=== PATIENT | male | born 1950 | race Two or more races ===

== ENCOUNTER 2016-12-13 20:53 | Inpatient (IN) | payer MEDICAID, OTHER ==
[~2016-12-13] VITALS: Ht 170.2 cm; Wt 77.1 kg
[2016-12-13 21:20] LABS: BASOPHILS % (AUTO) 0.6 % (0.0-2.0); EOSINOPHILS % (AUTO) 2.6 % (0.0-3.0); LYMPHOCYTES % (AUTO) 13.3 % (20.0-45.0); MEAN CORPUSCULAR HEMOGLOBIN 31.3 PG (27.0-31.0); MEAN CORPUSCULAR HGB CONC 32.9 G/DL (32.0-36.0); MEAN CORPUSCULAR VOLUME 95 FL (80-99); MEAN PLATELET VOLUME 6.5 FL (6.5-10.1); MONOCYTES % (AUTO) 4.4 % (1.0-10.0); NEUTROPHILS % (AUTO) 79.1 % (45.0-75.0); PLATELET COUNT 216 K/UL (150-450); RED BLOOD COUNT 4.08 M/UL (4.70-6.10); RED CELL DISTRIBUTION WIDTH 13.9 % (11.6-14.8); WHITE BLOOD COUNT 11.5 K/UL (4.8-10.8)
[2016-12-13 21:31] LABS: TROPONIN I < 0.30 ng/mL (<=0.30)
[2016-12-13 21:32] LABS: ALANINE AMINOTRANSFERASE 17 U/L (3-41); ALBUMIN/GLOBULIN RATIO 0.8 (1.0-2.7); ANION GAP 13 (5-15); ASPARTATE AMINO TRANSFERASE 26 U/L (5-40); CALCIUM 9.2 mg/dL (8.6-10.2); CARBON DIOXIDE 31 mEQ/L (20-30); CHLORIDE 90 mEQ/L (98-107); CREATININE 0.6 mg/dL (0.7-1.2); GLOMERULAR FILTRATION RATE > 60 mL/min (>60); HEMOLYSIS 13; POTASSIUM 4.3 mEQ/L (3.4-4.9); SODIUM 134 mEQ/L (135-145); TOTAL PROTEIN 8.6 g/dL (6.6-8.7)
[2016-12-13] MEDS ORDERED: KEPPRA1000 MG ORAL (22:23)
[2016-12-13] MEDS ORDERED: HUMULIN R100 UNIT/1 SUBQ (22:23)
[2016-12-13] MEDS ORDERED: CAPOTEN12.5 MG GT (22:23)
[2016-12-13] MEDS ORDERED: FAMOTIDINE20 MG ORAL (22:23)
[2016-12-13] MEDS ORDERED: LEVOTHYROXINE150 MCG ORAL (22:23)
[2016-12-13] MEDS ORDERED: DILANTIN100 MG ORAL (22:23)
--- NOTE | 2016-12-13 22:25 | Emergency Room Report ---
History of Present Illness General Chief Complaint: Abnormal Labs Source: Medical Record, EMS Present Illness HPI The patient was sent in because of an elevated Dilantin level. The patient is in a vegetative state and has history of seizures. He is being given medications by gastrostomy tube. The Dilantin level was 51 at the [facility] facility. No apparent seizures, fevers. He does have involuntary tongue thrusting according to Dr. Bran. Patient in vegetative state and no other history available. Allergies: Coded Allergies: No Known Allergies (Unverified , 12/13/16) Patient History Past Medical History: see triage record Past Surgical History: other - trach and G tube Social History Narrative snf Reviewed Nursing Documentation: PMH: Agreed, PSxH: Agreed Nursing Documentation-PMH Hx Cardiac Problems: Yes - HYPERLIPIDEMIA,ANEMIA Hx COPD: Yes - RESP FAILURE,TRACHE,VENT DEPENDENT Hx Diabetes: Yes Hx Gastrointestinal Problems: Yes - CDK Physical Exam Vital Signs Date Time Temp Pulse Resp B/P Pulse Ox O2 Delivery O2 Flow Rate FiO2 12/13/16 20:37 88 16 113/65 98 Mechanical Ventilator 40 Sp02 EP Interpretation: reviewed, normal General Appearance: no apparent distress, other - vegetative state, Chronically Ill Head: normocephalic Eyes: bilateral eye PERRL, bilateral eye normal inspection, bilateral eye other - some exopththalmos ENT: moist mucus membranes, other - tongue with ischemic tip Neck: supple Respiratory: lungs clear, normal breath sounds Cardiovascular #1: regular rate, rhythm Cardiovascular #2: 2+ radial (R) Gastrointestinal: normal inspection, normal bowel sounds, non tender, no mass, distended, other - G tube Musculoskeletal: back normal, other - atrophy, contractures Neurologic: other - unresponsive and flaccid Psychiatric: other - vegetative state Skin: warm/dry, other - sacral decub, punctate follicular inflammation, blister abd Medical Decision Making Diagnostic Impression: Primary Impression: Dilantin toxicity Qualified Codes: T42.0X4A - Poisoning by hydantoin derivatives, undetermined, initial encounter Additional Impressions: Ventilator dependent Low grade fever ER Course Patient presents with possible elevated Dilantin level. Physical of this possibly being arrhythmias and altered mental status with possible hypotension. Evaluation with EKG, chest x-ray and laboratories undertaken. The patient will receive IV hydration. EKG with right axis deviation however no QT prolongation or arrhythmia. Dilantin level is 55.3. Low grade fever, etiology unclear. Because his Dilantin level is increasing the patient admitted to the hospital for further observation. Admit [facility], Dr. Nicolas. Labs Test 12/14/16 04:00 12/15/16 05:24 12/16/16 05:28 White Blood Count 9.5 K/UL (4.8-10.8) 6.2 K/UL (4.8-10.8) Red Blood Count 3.73 M/UL (4.70-6.10) 3.68 M/UL (4.70-6.10) Hemoglobin 11.9 G/DL (14.2-18.0) 11.6 G/DL (14.2-18.0) Hematocrit 35.7 % (42.0-52.0) 35.3 % (42.0-52.0) Mean Corpuscular Volume 96 FL (80-99) 96 FL (80-99) Mean Corpuscular Hemoglobin 31.9 PG (27.0-31.0) 31.5 PG (27.0-31.0) Mean Corpuscular Hemoglobin Concent 33.3 G/DL (32.0-36.0) 32.9 G/DL (32.0-36.0) Red Cell Distribution Width 13.6 % (11.6-14.8) 14.4 % (11.6-14.8) Platelet Count 169 K/UL (150-450) 226 K/UL (150-450) Mean Platelet Volume 7.0 FL (6.5-10.1) 7.2 FL (6.5-10.1) Neutrophils (%) (Auto) 71.2 % (45.0-75.0) 55.8 % (45.0-75.0) Lymphocytes (%) (Auto) 18.2 % (20.0-45.0) 29.0 % (20.0-45.0) Monocytes (%) (Auto) 6.8 % (1.0-10.0) 9.9 % (1.0-10.0) Eosinophils (%) (Auto) 3.0 % (0.0-3.0) 4.6 % (0.0-3.0) Basophils (%) (Auto) 0.8 % (0.0-2.0) 0.8 % (0.0-2.0) Sodium Level 135 mEQ/L (135-145) 141 mEQ/L (135-145) Potassium Level 4.4 mEQ/L (3.4-4.9) 3.5 mEQ/L (3.4-4.9) Chloride Level 94 mEQ/L (98-107) 98 mEQ/L (98-107) Carbon Dioxide Level 26 mEQ/L (20-30) 27 mEQ/L (20-30) Anion Gap 15 (5-15) 16 (5-15) Blood Urea Nitrogen 15 mg/dL (7-23) 16 mg/dL (7-23) Creatinine 0.6 mg/dL (0.7-1.2) 0.8 mg/dL (0.7-1.2) Estimat Glomerular Filtration Rate > 60 mL/min (>60) > 60 mL/min (>60) Glucose Level 113 mg/dL (74-106) 112 mg/dL (74-106) Calcium Level 8.7 mg/dL (8.6-10.2) 8.7 mg/dL (8.6-10.2) Phosphorus Level 2.2 mg/dL (2.5-4.8) 3.1 mg/dL (2.5-4.8) Albumin 3.2 g/dL (3.5-5.2) 3.5 g/dL (3.5-5.2) Phenytoin (Dilantin) Level 39.7 ug/mL (10-20) 36.7 ug/mL (10-20) Magnesium Level 2.3 mg/dL (1.7-2.5) Total Bilirubin 0.2 mg/dL (0.0-1.2) Aspartate Amino Transf (AST/SGOT) 29 U/L (5-40) Alanine Aminotransferase (ALT/SGPT) 15 U/L (3-41) Alkaline Phosphatase 115 U/L (40-129) Total Protein 7.7 g/dL (6.6-8.7) Globulin 4.2 g/dL Albumin/Globulin Ratio 0.8 (1.0-2.7) EKG Diagnostic Results Rate: normal Rhythm: NSR ST Segments: no acute changes - R axis Rhythm Strip Diag. Results EP Interpretation: yes Rhythm: NSR, no PVC's, no ectopy Chest X-Ray Diagnostic Results Chest X-Ray Ordered: Yes # of Views/Limited/Complete: 1 View EP Interpretation: Yes Interpretation: no effusion, no pneumothorax, other - atelectasis and trach Indication: Other Impression: Other Interpreting ER Provider: filippo Status: unchanged Disposition: ADMITTED INPATIENT Condition: Serious Referrals: [facility] (PCP) Kyaw Washington M.D. Dec 13, 2016 22:25
[2016-12-13 22:36] VITALS: BP 135/77
[2016-12-13] MEDS ORDERED: MINIPRESS5 MG PO (22:45)
[2016-12-13] MEDS ORDERED: PROMOD946 ML PO (22:45)
[2016-12-13] MEDS ORDERED: ACETAMINOP160 MG/52 ORAL (22:45)
[2016-12-13 23:00] LABS: APPEARANCE,URINE CLEAR; KETONES,URINE NEGATIVE (NEGATIVE); LEUKOCYTE ESTERASE ,URINE NEGATIVE (NEGATIVE); NITRITE,URINE NEGATIVE (NEGATIVE); PH,URINE 8 (4.5-8.0); PROTEIN,URINE NEGATIVE (NEGATIVE); UROBILINOGEN,URINE NORMAL MG/DL (0.0-1.0)
[2016-12-13] MEDS ORDERED: Acetaminophen 650mg/20.3ml GT STA (23:05)
[2016-12-13] MEDS ORDERED: Acetaminophen 650mg/20.3ml ONE (23:06)
[2016-12-13 23:11] LABS: RBC,URINE 0-2 /HPF (0 - 0); SQUAMOUS EPITHELIAL CELL,UR FEW /LPF (NONE/OCC); WBC,URINE 0-2 /HPF (0 - 0)
[2016-12-14] VITALS: BP 128/72
[2016-12-14] MEDS ORDERED: Morphine Sulfate 4mg/ml Inj IVP PRN
[2016-12-14] MEDS ORDERED: Miralax 17gm pkt ORAL PRN
[2016-12-14] MEDS ORDERED: DuoNeb 0.5-3(2.5)mg/3ml neb HHN PRN
[2016-12-14] MEDS ORDERED: LORazepam Inj 2mg/ml 1ml IV PRN
[2016-12-14] MEDS ORDERED: Zosyn 3.375gm inj ONE ×2 (01:09→05:53)
[2016-12-14] MEDS: Piperacillin/Tazobactam 3.375 GM in NS 110 ML IVPB SCH ×4 (01:19→17:37)
[2016-12-14 04:00] VITALS: BP 124/78
[2016-12-14 05:48] LABS: BASOPHILS % (AUTO) 0.8 % (0.0-2.0); LYMPHOCYTES % (AUTO) 18.2 % (20.0-45.0); MEAN CORPUSCULAR HEMOGLOBIN 31.9 PG (27.0-31.0); MEAN CORPUSCULAR HGB CONC 33.3 G/DL (32.0-36.0); MEAN CORPUSCULAR VOLUME 96 FL (80-99); MONOCYTES % (AUTO) 6.8 % (1.0-10.0); NEUTROPHILS % (AUTO) 71.2 % (45.0-75.0); PLATELET COUNT 169 K/UL (150-450); RED BLOOD COUNT 3.73 M/UL (4.70-6.10); RED CELL DISTRIBUTION WIDTH 13.6 % (11.6-14.8); WHITE BLOOD COUNT 9.5 K/UL (4.8-10.8)
[2016-12-14] MEDS ORDERED: Captopril 12.5mg tab GT SCH (06:00)
[2016-12-14] MEDS: NovoLOG Insulin Flexpen SUBQ SCH ×4 (06:08→22:07)
[2016-12-14 06:21] LABS: ANION GAP 15 (5-15); CALCIUM 8.7 mg/dL (8.6-10.2); CARBON DIOXIDE 26 mEQ/L (20-30); CHLORIDE 94 mEQ/L (98-107); CREATININE 0.6 mg/dL (0.7-1.2); GLOMERULAR FILTRATION RATE > 60 mL/min (>60); HEMOLYSIS 36; PHOSPHORUS 2.2 mg/dL (2.5-4.8); POTASSIUM 4.4 mEQ/L (3.4-4.9); SODIUM 135 mEQ/L (135-145)
[2016-12-14] MEDS: Captopril 12.5mg tab GT SCH ×2 (07:30→15:30)
[2016-12-14 08:00] VITALS: BP 124/83
[2016-12-14] MEDS ORDERED: Pantoprazole Inj IV SCH (09:00)
[2016-12-14] MEDS: Heparin 5000 units/ml inj SUBQ SCH ×2 (09:07→22:09)
--- NOTE | 2016-12-14 09:59 | Diagnostic Imaging Report ---
Indication: Shortness of breath Technique: One view of the chest Comparison: none Findings: There is obscuration of the medial left hemidiaphragm. There is right perihilar atelectasis. There is a tracheostomy. The remainder the lungs and pleural spaces are clear. Impression: Obscured medial left hemidiaphragm, may indicate parenchymal disease at the left lung base Minimal right perihilar atelectasis Tracheostomy
--- NOTE | 2016-12-14 10:49 | History and Physical ---
History of Present Illness General Date patient seen: Dec 14, 2016 Reason for Hospitalization: Abnormal Labs Present Illness HPI 66 year old male with chronic trach/vent/peg/ bed bound, vegetative state, seizure disorder was sent in because of an elevated Dilantin level. The Dilantin level was 51 at the custodial facility. He also had low grade temperature. He is admitted to [facility] for further treatment. Allergies: Coded Allergies: No Known Allergies (Unverified , 12/13/16) Medication History Scheduled Famotidine (Famotidine), 20 MG ORAL DAILY, (Reported) Levetiracetam (Keppra), 1,000 MG ORAL DAILY, (Reported) Levothyroxine Sodium* (Levothyroxine Sodium*), 150 MCG ORAL DAILY, (Reported) Phenytoin Sodium Extended* (Dilantin*), 300 MG ORAL BEDTIME, (Reported) Scheduled PRN Acetaminophen* (Acetaminophen*), 640 MG ORAL Q4H PRN for Mild Pain/Temp > 100.5, (Reported) Miscellaneous Medications Captopril (Captopril), 12.5 MG GT, (Reported) Insulin Regular, Human (Humulin R), 0 SUBQ, (Reported) Prazosin Hcl* (Minipress*), 4 MG PO, (Reported) Protein Supplement (Promod), 946 ML PO, (Reported) Patient History Healthcare decision maker Resuscitation status Full Code Advanced Directive on File No Past Medical/Surgical History Past Medical/Surgical History: (1) Vegetative state (2) Feeding by G-tube (3) Tracheostomy in place (4) Ventilator dependent Review of Systems All Other Systems: negative except mentioned in HPI Physical Exam General Appearance: WD/WN Lines, tubes and drains: peripheral HEENT: normocephalic, atraumatic Neck: non-tender, normal alignment Respiratory/Chest: chest wall non-tender, lungs clear Cardiovascular/Chest: normal peripheral pulses, normal rate, no JVD Abdomen: normal bowel sounds Extremities: normal range of motion, non-tender Skin Exam: normal pigmentation 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: 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 manager 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 Last 24 Hour Vital Signs Date Time Temp Pulse Resp B/P Pulse Ox O2 Delivery O2 Flow Rate FiO2 12/14/16 08:44 85 14 35 12/14/16 08:37 74 12/14/16 08:35 40 12/14/16 08:00 99.2 90 14 124/83 100 Mechanical Ventilator 35 12/14/16 07:30 135/80 12/14/16 06:45 84 14 35 12/14/16 05:20 89 16 35 12/14/16 04:00 80 12/14/16 04:00 98.5 84 14 124/78 98 Mechanical Ventilator 35 12/14/16 02:59 86 14 35 12/14/16 01:05 82 14 35 12/14/16 00:00 88 12/14/16 00:00 97.1 84 14 128/72 100 Mechanical Ventilator 40 12/13/16 23:45 99.9 87 10 135/77 99 Mechanical Ventilator 40 12/13/16 23:20 89 10 40 12/13/16 22:36 99.9 87 14 135/77 99 Mechanical Ventilator 12/13/16 20:56 89 10 40 12/13/16 20:37 88 16 113/65 98 Mechanical Ventilator 40 Intake and Output 12/13/16 12/14/16 19:00 07:00 Intake Total 420.0 ml Output Total 500 ml Balance -80.0 ml Intake Free Water 100 ml IV Total 110.0 ml Tube Feeding 210 ml Output Urine Total 500 ml Laboratory Tests Test 12/13/16 21:00 12/13/16 22:34 12/14/16 04:00 White Blood Count 11.5 K/UL (4.8-10.8) H 9.5 K/UL (4.8-10.8) Red Blood Count 4.08 M/UL (4.70-6.10) L 3.73 M/UL (4.70-6.10) L Hemoglobin 12.8 G/DL (14.2-18.0) L 11.9 G/DL (14.2-18.0) L Hematocrit 38.9 % (42.0-52.0) L 35.7 % (42.0-52.0) L Mean Corpuscular Volume 95 FL (80-99) 96 FL (80-99) Mean Corpuscular Hemoglobin 31.3 PG (27.0-31.0) H 31.9 PG (27.0-31.0) H Mean Corpuscular Hemoglobin Concent 32.9 G/DL (32.0-36.0) 33.3 G/DL (32.0-36.0) Red Cell Distribution Width 13.9 % (11.6-14.8) 13.6 % (11.6-14.8) Platelet Count 216 K/UL (150-450) 169 K/UL (150-450) Mean Platelet Volume 6.5 FL (6.5-10.1) 7.0 FL (6.5-10.1) Neutrophils (%) (Auto) 79.1 % (45.0-75.0) H 71.2 % (45.0-75.0) Lymphocytes (%) (Auto) 13.3 % (20.0-45.0) L 18.2 % (20.0-45.0) L Monocytes (%) (Auto) 4.4 % (1.0-10.0) 6.8 % (1.0-10.0) Eosinophils (%) (Auto) 2.6 % (0.0-3.0) 3.0 % (0.0-3.0) Basophils (%) (Auto) 0.6 % (0.0-2.0) 0.8 % (0.0-2.0) Sodium Level 134 mEQ/L (135-145) L 135 mEQ/L (135-145) Potassium Level 4.3 mEQ/L (3.4-4.9) 4.4 mEQ/L (3.4-4.9) Chloride Level 90 mEQ/L (98-107) L 94 mEQ/L (98-107) L Carbon Dioxide Level 31 mEQ/L (20-30) H 26 mEQ/L (20-30) Anion Gap 13 (5-15) 15 (5-15) Blood Urea Nitrogen 16 mg/dL (7-23) 15 mg/dL (7-23) Creatinine 0.6 mg/dL (0.7-1.2) L 0.6 mg/dL (0.7-1.2) L Estimat Glomerular Filtration Rate > 60 mL/min (>60) > 60 mL/min (>60) Glucose Level 119 mg/dL (74-106) H 113 mg/dL (74-106) H Calcium Level 9.2 mg/dL (8.6-10.2) 8.7 mg/dL (8.6-10.2) Total Bilirubin 0.3 mg/dL (0.0-1.2) Aspartate Amino Transf (AST/SGOT) 26 U/L (5-40) Alanine Aminotransferase (ALT/SGPT) 17 U/L (3-41) Alkaline Phosphatase 134 U/L (40-129) H Total Creatine Kinase 93 U/L (38-174) Troponin I < 0.30 ng/mL (<=0.30) Total Protein 8.6 g/dL (6.6-8.7) Albumin 3.9 g/dL (3.5-5.2) 3.2 g/dL (3.5-5.2) L Globulin 4.7 g/dL Albumin/Globulin Ratio 0.8 (1.0-2.7) L Phenytoin (Dilantin) Level 55.3 ug/mL (10-20) *H Urine Color Pale yellow Urine Appearance Clear Urine pH 8 (4.5-8.0) Urine Specific [place] 1.010 (1.005-1.035) Urine Protein Negative (NEGATIVE) Urine Glucose (UA) Negative (NEGATIVE) Urine Ketones Negative (NEGATIVE) Urine Occult Blood 4+ (NEGATIVE) H Urine Nitrite Negative (NEGATIVE) Urine Bilirubin Negative (NEGATIVE) Urine Urobilinogen Normal MG/DL (0.0-1.0) Urine Leukocyte Esterase Negative (NEGATIVE) Urine RBC 0-2 /HPF (0 - 0) H Urine WBC 0-2 /HPF (0 - 0) Urine Squamous Epithelial Cells Few /LPF (NONE/OCC) Urine Bacteria None /HPF (NONE) Phosphorus Level 2.2 mg/dL (2.5-4.8) L Height (Feet): 5 Height (Inches): 7.00 Weight (Pounds): 170 Medications Current Medications Medications (Trade) Dose Ordered Sig/Dolly Route PRN Reason Start Time Stop Time Status Last Admin Dose Admin Acetaminophen (Tylenol) 650 mg Q4H PRN ORAL FEVER 12/14/16 00:00 01/13/17 00:00 Albuterol/ Ipratropium (DuoNeb 0.5-3(2.5)mg/3ml) 3 ml EVERY 4 HOURS PRN HHN Shortness of Breath 12/14/16 00:00 12/19/16 00:00 Captopril (Capoten) 12.5 mg Q8H GT 12/14/16 07:30 7/23/17 07:29 12/14/16 07:30 Dextrose STAT PRN IV Hypoglycemia 12/14/16 00:00 01/13/17 00:00 Heparin Sodium (Porcine) (Heparin 5000 units/ml) 5,000 units EVERY 12 HOURS SUBQ 12/14/16 09:00 01/13/17 08:59 12/14/16 09:07 Insulin Aspart (NovoLOG) BEFORE MEALS AND HS SUBQ 12/14/16 06:30 01/13/17 06:29 12/14/16 06:08 Lansoprazole (Prevacid) 30 mg DAILY GT 12/15/16 09:00 01/14/17 08:59 Levetiracetam (Keppra) 1,000 mg DAILY ORAL 12/14/16 09:00 01/13/17 08:59 12/14/16 09:00 Levothyroxine Sodium (Synthroid) 150 mcg DAILY@0630 ORAL 12/14/16 06:30 01/13/17 06:29 12/14/16 06:07 Lorazepam (Ativan 2mg/ml 1ml) 2 mg EVERY 2 HOURS PRN IV For Anxiety 12/14/16 00:00 12/21/16 00:00 Morphine Sulfate (Morphine Sulfate) 4 mg EVERY 4 HOURS PRN IVP Severe Pain (Pain Scale 7-10) 12/14/16 00:00 12/21/16 00:00 Ondansetron HCl (Zofran) 4 mg Q6H PRN IVP Nausea & Vomiting 12/14/16 00:00 01/13/17 00:00 Piperacillin Sod/ Tazobactam Sod/ Sodium Chloride (Zosyn/Sodium Chloride) 110 ml @ 27.5 mls/hr EVERY 6 HOURS IVPB 12/14/16 00:00 12/21/16 00:00 12/14/16 06:07 Polyethylene Glycol (Miralax) 17 gm DAILYPRN PRN ORAL Constipation 12/14/16 00:00 01/13/17 00:00 Sodium Chloride (Sodium Chloride 1000ml bag) 1,000 ml @ 300 mls/hr Q3H20M IV 12/13/16 21:15 01/12/17 21:14 12/13/16 22:03 Assessment/Plan Problem List: (1) Dilantin toxicity ICD Codes: T42.0X1A - Poisoning by hydantoin derivatives, accidental ( unintentional), initial encounter SNOMED: 45775861 (2) Low grade fever ICD Codes: R50.9 - Fever, unspecified SNOMED: 970683441 (3) Ventilator dependent ICD Codes: Z99.11 - Dependence on respirator [ventilator] status SNOMED: 172446097 (4) Vegetative state ICD Codes: R40.3 - Persistent vegetative state SNOMED: 23934071, 965596434 (5) Tracheostomy in place ICD Codes: Z93.0 - Tracheostomy status SNOMED: 872567951 (6) Feeding by G-tube ICD Codes: Z93.1 - Gastrostomy status SNOMED: 973145972, 344670222 Respiratory: monitor respiratory rate, adjust FIO2 Cardiac: continue to monitor HR/BP Renal: F/U I&O, check electrolytes Infectious Disease: check cultures Gastrointestinal: continue feedings/current rate Endocrine: monitor blood sugar Hematologic: monitor H/H, transfuse if hgb<8.5 Neurologic: PRN Ativan, PRN Morphine, keep patient comfortable Affect: PRN ativan Prophylaxis: Protonix Discussed with: nurses, consultants, bilingual patient support caseworker REY YAN Dec 14, 2016 10:49
--- NOTE | 2016-12-14 11:32 | Neurology Progress Note ---
Objective Physical Exam Last Vital Signs Date Time Temp Pulse Resp B/P Pulse Ox O2 Delivery O2 Flow Rate FiO2 12/14/16 10:31 89 14 35 12/14/16 08:00 99.2 124/83 100 Mechanical Ventilator Laboratory Tests Test 12/13/16 21:00 12/13/16 22:34 12/14/16 04:00 White Blood Count 11.5 K/UL (4.8-10.8) H 9.5 K/UL (4.8-10.8) Red Blood Count 4.08 M/UL (4.70-6.10) L 3.73 M/UL (4.70-6.10) L Hemoglobin 12.8 G/DL (14.2-18.0) L 11.9 G/DL (14.2-18.0) L Hematocrit 38.9 % (42.0-52.0) L 35.7 % (42.0-52.0) L Mean Corpuscular Volume 95 FL (80-99) 96 FL (80-99) Mean Corpuscular Hemoglobin 31.3 PG (27.0-31.0) H 31.9 PG (27.0-31.0) H Mean Corpuscular Hemoglobin Concent 32.9 G/DL (32.0-36.0) 33.3 G/DL (32.0-36.0) Red Cell Distribution Width 13.9 % (11.6-14.8) 13.6 % (11.6-14.8) Platelet Count 216 K/UL (150-450) 169 K/UL (150-450) Mean Platelet Volume 6.5 FL (6.5-10.1) 7.0 FL (6.5-10.1) Neutrophils (%) (Auto) 79.1 % (45.0-75.0) H 71.2 % (45.0-75.0) Lymphocytes (%) (Auto) 13.3 % (20.0-45.0) L 18.2 % (20.0-45.0) L Monocytes (%) (Auto) 4.4 % (1.0-10.0) 6.8 % (1.0-10.0) Eosinophils (%) (Auto) 2.6 % (0.0-3.0) 3.0 % (0.0-3.0) Basophils (%) (Auto) 0.6 % (0.0-2.0) 0.8 % (0.0-2.0) Sodium Level 134 mEQ/L (135-145) L 135 mEQ/L (135-145) Potassium Level 4.3 mEQ/L (3.4-4.9) 4.4 mEQ/L (3.4-4.9) Chloride Level 90 mEQ/L (98-107) L 94 mEQ/L (98-107) L Carbon Dioxide Level 31 mEQ/L (20-30) H 26 mEQ/L (20-30) Anion Gap 13 (5-15) 15 (5-15) Blood Urea Nitrogen 16 mg/dL (7-23) 15 mg/dL (7-23) Creatinine 0.6 mg/dL (0.7-1.2) L 0.6 mg/dL (0.7-1.2) L Estimat Glomerular Filtration Rate > 60 mL/min (>60) > 60 mL/min (>60) Glucose Level 119 mg/dL (74-106) H 113 mg/dL (74-106) H Calcium Level 9.2 mg/dL (8.6-10.2) 8.7 mg/dL (8.6-10.2) Total Bilirubin 0.3 mg/dL (0.0-1.2) Aspartate Amino Transf (AST/SGOT) 26 U/L (5-40) Alanine Aminotransferase (ALT/SGPT) 17 U/L (3-41) Alkaline Phosphatase 134 U/L (40-129) H Total Creatine Kinase 93 U/L (38-174) Troponin I < 0.30 ng/mL (<=0.30) Total Protein 8.6 g/dL (6.6-8.7) Albumin 3.9 g/dL (3.5-5.2) 3.2 g/dL (3.5-5.2) L Globulin 4.7 g/dL Albumin/Globulin Ratio 0.8 (1.0-2.7) L Phenytoin (Dilantin) Level 55.3 ug/mL (10-20) *H Urine Color Pale yellow Urine Appearance Clear Urine pH 8 (4.5-8.0) Urine Specific [place] 1.010 (1.005-1.035) Urine Protein Negative (NEGATIVE) Urine Glucose (UA) Negative (NEGATIVE) Urine Ketones Negative (NEGATIVE) Urine Occult Blood 4+ (NEGATIVE) H Urine Nitrite Negative (NEGATIVE) Urine Bilirubin Negative (NEGATIVE) Urine Urobilinogen Normal MG/DL (0.0-1.0) Urine Leukocyte Esterase Negative (NEGATIVE) Urine RBC 0-2 /HPF (0 - 0) H Urine WBC 0-2 /HPF (0 - 0) Urine Squamous Epithelial Cells Few /LPF (NONE/OCC) Urine Bacteria None /HPF (NONE) Phosphorus Level 2.2 mg/dL (2.5-4.8) L Impression/Recommendations Recommendations #[id number] ANA SINGH Dec 14, 2016 11:32
[2016-12-14 12:00] VITALS: BP 120/66
--- NOTE | 2016-12-14 12:21 | Consultation ---
Consult Note Consult Note [id number] KENDRICK RAMIRES M.D. Dec 14, 2016 12:21
[2016-12-14 16:00] VITALS: BP 118/69
[2016-12-14] MEDS ORDERED: Sodium Phosphate 15 MM in NS 275 ML IVPB ONE (18:00)
[2016-12-14 20:00] VITALS: BP 146/81
--- NOTE | 2016-12-14 21:45 | Consultation ---
DATE OF CONSULTATION: 12/13/2016 NEUROLOGICAL CONSULTATION REQUESTING PHYSICIAN: Cody Bran M.D. HISTORY OF PRESENT ILLNESS: The patient is a 66-year-old man with a history of chronic seizure disorder, maintained on Dilantin, presented with significant Dilantin toxicity. The patient is unable to provide with medical history. Presumably, the patient had a full arrest followed by severe anoxic encephalopathy with vegetative state, and chronic seizure disorder. The patient is maintained on G-tube feeding. He developed respiratory failure, now on tracheostomy for ventilator dependent. The patient was brought to this hospital. Upon arrival to this hospital, initial workup included vital signs being stable. His imaging studies included chest x-ray, which revealed minimal right perihilar atelectasis and tracheostomy. Laboratory work CBC study, white blood cells 11.5, hemoglobin 12.8, and hematocrit 38.9. Chemistry panel, sodium 134, creatinine 0.6, glucose 119, , otherwise unremarkable. Urinalysis, 4+ occult blood. Toxicology panel revealed phenytoin level of 55.3. PAST MEDICAL HISTORY: 1. Fall with status post ORIF. 2. Hypothyroidism. 3. Hypertension. 4. Hyperlipidemia. 5. Chronic anemia. 6. Respiratory failure, ventilator dependent. TREATMENT PRIOR TO ADMISSION: Included, , phenytoin 300 mg at bedtime, levothyroxine 150 mg, Keppra 1000 mg daily, insulin, famotidine, captopril, and acetaminophen. ALLERGIES: None reported. SOCIAL HISTORY: Resident of nursing facility. FAMILY HISTORY: Unavailable. REVIEW OF SYMPTOMS: Unable to obtain due to the patient's status. PHYSICAL EXAMINATION: GENERAL: This is a well-developed, somewhat overweight male, lying in bed with eyes open. He is on tracheostomy and ventilator dependent. VITAL SIGNS: Stable. Blood pressure 124/83, temperature 99.2 degrees, and heart rate of 90. HEENT: Head, normocephalic. There is no evidence of trauma. No otorrhea. No rhinorrhea. NECK: Very rigid in all directions. No thyromegaly and no lymphadenopathy noted. MUSCULOSKELETAL: Muscle wasting mainly lower extremities. Contracted both upper extremities, extended both lower extremities. Peripheral pulses 1+ symmetric. SKIN: Unremarkable. No rash. MENTAL STATUS: The patient appears alert. His eyes are open. He has a very brief eye contact on painful stimulation, but not on verbal stimulation. Nonverbal and nonresponsive and does not follow commands. CRANIAL NERVE II: Pupils 3 mm, both responding to light and accommodation. Extraocular movement full range. Fundi poorly visualized. CRANIAL NERVE V: Normal corneal responses. CRANIAL NERVE VII: No significant facial asymmetry. CRANIAL NERVE VIII: Unable to test . CRANIAL NERVE XII: Absent gag response. Tongue is in midline. G-tube placed. MOTOR EXAMINATION: Severe spasticity in both upper and lower extremities with flexor contracture both wrists and hands, no spontaneous movement, rigid significantly. Attempt to extend arms, both lower extremities extended with . Deep tendon reflexes depressed bilaterally. Plantar responses are mute. Sensory examination, no response to pin stimulation. IMPRESSION: 1. 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 2. Respiratory insufficiency, on tracheostomy, ventilator dependent. 3. Chronic seizure disorder. 4. Dilantin toxicity. 5. Multiple stroke risk factors, hypertension, diabetes, and hyperlipidemia. 6. Hypothyroidism. RECOMMENDATION: The patient has a very poor prognosis as far as neurological recovery. His seizure disorder probably refractory and maintained on 2 anticonvulsants. We will on Keppra 1500 mg b.i.d., reduced Dilantin down to 250 mg daily as soon as his blood level in a therapeutic range. Repeated EKG to rule out QT prolongation or cardiac arrhythmia while the patient is toxic with Dilantin. Currently, his EKG displayed normal sinus rhythm with no acute changes. No PVC. We will follow with you. Thank you for allowing me to see this interesting patient in neurological consultation. Jose Raul Zavala M.D. DR: JOSE JOB#: [id number] CC:
--- NOTE | 2016-12-14 22:45 | Consultation ---
DATE OF CONSULTATION: INFECTIOUS DISEASES CONSULT CONSULTING PHYSICIAN: Wyatt Suh M.D. REFERRING PHYSICIAN: Lea Nicolas M.D. REASON FOR CONSULTATION: Evaluation of the patient for leukocytosis, possible sepsis, and antibiotic management. HISTORY OF PRESENT ILLNESS: The patient is a 66-year-old male, who was admitted to this medical center due to high level of Dilantin and the patient was found at the time of admission to have leukocytosis. They were concerned for possible sepsis. The patient was started on IV antibiotics. Infectious Diseases consultation has been requested for further evaluation of the patient and antibiotic management. The patient was not able to provide information. Much of the information is gathered through the chart and speaking to staff. PAST MEDICAL HISTORY: 1. History of hyperlipidemia. 2. History of anemia. 3. History of COPD. 4. Diabetes. 5. History of seizure disorder. MEDICATIONS: IV Zosyn. ALLERGIES: No known drug allergies. SOCIAL HISTORY: The patient lives in a long term. FAMILY HISTORY: Unavailable. REVIEW OF SYSTEMS: Unobtainable. PHYSICAL EXAMINATION: VITAL SIGNS: Temperature 99.2, blood pressure 124/82, pulse 86, and respiratory rate 18. HEENT: Mild pale conjunctivae. No icterus. NECK: No lymphadenopathy. CHEST: Coarse breathing sounds. HEART: S1 and S2. ABDOMEN: Soft and nontender. EXTREMITIES: No cyanosis. NEUROLOGIC: Awake and nonverbal. In vegetative state. LABORATORY DATA: level 55.3. White blood cell count is 11.5, hemoglobin 12, and platelets 216, 000. White blood cells is 9.5 today. UA unremarkable. BUN 15 and creatinine 0.6. ALT and AST unremarkable. Alkaline phosphatase 134. Chest x-ray mild right perihilar atelectasis status post trach. ASSESSMENT: 1. Mild leukocytosis. 2. Probable sepsis. 3. Dilantin toxicity. 4. Low-grade fever. 5. Ventilator-dependant respiratory failure. 6. Vegetative state. 7. Status post trach and percutaneous endoscopic gastrostomy placement. 8. Diabetes. 9. Chronic obstructive pulmonary disease. PLAN: 1. We will continue the patient on IV Zosyn. 2. Monitor CBC. 3. Monitor BMP. 4. Monitor cultures (blood and sputum). 5. Monitor chest x-ray. 6. If the patient stays stable and cultures are negative, we may discontinue antibiotics soon. Thank you, Dr. Nicolas, for allowing me to participate in the care of this patient. I will follow the patient with you during this hospitalization. Wyatt Suh M.D. DR: ROMERO JOB#: [id number] CC:
[2016-12-15] VITALS: BP 135/79
--- NOTE | 2016-12-15 00:45 | Wound Care Consultation ---
Wound Assessment Wound Assessment #1: Wound Number: #1 Wound Present on Admission: Yes New Wound: No Status Change of Wound: No Wound Location Body Site: abdomen Wound Type: blister - serous filled. Gaby Test: Does not Gaby Wound Thickness: Partial Thickness Wound Length: 1.0 Wound Width: 2.0 Percent of Wound [place]/Red: 100 Wound Drainage Amount: None Wound Drainage Odor: None/Absent Tissue Surrounding Wound: Intact Wound General Appearance: Reddened Wound Assessment #2: Wound Number: #2 Wound Present on Admission: Yes New Wound: No Status Change of Wound: No Wound Location Body Site Modif: right, upper Wound Location Body Site: arm - extending to right lateral torso and chest , scattered to posterior upper and lower back Wound Type: rash - possible scabies. Gaby Test: Does not Gaby Percent of Wound [place]/Red: 100 Wound Drainage Amount: None Wound Drainage Odor: None/Absent Tissue Surrounding Wound: Erythemic - noted yellow scaly crust. Wound General Appearance: Reddened Wound Assessment #3: Wound Number: #3 Wound Present on Admission: Yes New Wound: No Status Change of Wound: No Wound Location Body Site Modif: right - inner upper Wound Location Body Site: thigh Wound Type: traumatic injury - open wound Gaby Test: Does not Gaby Wound Thickness: Partial Thickness Wound Length: 0.5 Wound Width: 3.0 Wound Depth: 0.1 Percent of Wound [place]/Red: 100 Wound Drainage Description: Serosanguineous Wound Drainage Amount: Scant Wound Drainage Odor: None/Absent Tissue Surrounding Wound: Erythemic Wound General Appearance: Reddened Wound Assessment #4: Wound Number: #4 Wound Present on Admission: Yes New Wound: No Status Change of Wound: No Wound Location Body Site: perineal area Wound Type: chemical burn - with erosion with partial skin loss. Gaby Test: Does not Gaby Wound Thickness: Partial Thickness Percent of Wound [place]/Red: 100 - scattered. Wound Drainage Description: Serosanguineous Wound Drainage Amount: Scant Wound Drainage Odor: None/Absent Tissue Surrounding Wound: Macerated Wound General Appearance: Reddened, Open to air Wound Assessment #5: Wound Number: #5 Wound Present on Admission: Yes New Wound: No Status Change of Wound: No Wound Location Body Site Modif: mid Wound Location Body Site: sacral Wound Type: pressure ulcer Gaby Test: Does not Gaby Pressure Ulcer Stage: III - noted surrounding tissue with full thickness scar tissue. Wound Thickness: Full Thickness Wound Length: 2.0 Wound Width: 2.0 Wound Depth: 0.3 Percent of Wound [place]/Red: 100 Wound Drainage Description: Serosanguineous Wound Drainage Amount: Scant Wound Drainage Odor: None/Absent Tissue Surrounding Wound: Erythemic Wound General Appearance: Reddened Wound Comment #1 Abdomen fluid filled blister. #2 Right upper arm extending to right lateral torso and chest ,scattered to posterior upper and lower back possible Scabies. #3 Right inner groin traumatic injury open wound. #4 Perineal area chemical burn with erosion. #5 Sacral stage III pressure ulcer. #6 sacral noted with full thickness scars to surrounding tissue. Recommedation. -FOLLOW UP WITH MD REGARDING RASH POSSIBLE SCABIES. -Local wound care as ordered. -Apply low air loss mattress. - Turn and reposition. - Keep clean and dry. -Offload affected sites. -Optimize nutrition. -Heel protectors. -Assess and notify MD for any change of condition to skin noted. CAYDEN CR Dec 15, 2016 00:45
[2016-12-15] MEDS: Piperacillin/Tazobactam 3.375 GM in NS 110 ML IVPB SCH ×4 (01:00→22:49)
[2016-12-15] MEDS: Captopril 12.5mg tab GT SCH ×3 (01:40→18:01)
[2016-12-15 04:00] VITALS: BP 147/91
[2016-12-15] MEDS: NovoLOG Insulin Flexpen SUBQ SCH ×4 (06:13→20:23)
[2016-12-15 08:00] VITALS: BP 143/88
[2016-12-15] MEDS: Ascorbic Acid 500mg tab ORAL SCH (10:55)
[2016-12-15] MEDS: Heparin 5000 units/ml inj SUBQ SCH ×2 (10:57→20:21)
[2016-12-15 12:00] VITALS: BP 125/72
[2016-12-15] MEDS ORDERED: Piperacillin/Tazobactam 3.375 GM in NS 110 ML IVPB SCH (14:00)
[2016-12-15 16:00] VITALS: BP 144/78
--- NOTE | 2016-12-15 17:01 | Pulmonology Progress Note ---
Assessment/Plan Problems: (1) Dilantin toxicity (2) Low grade fever (3) Ventilator dependent (4) Vegetative state (5) Tracheostomy in place (6) Feeding by G-tube Respiratory: monitor respiratory rate, adjust FIO2 Cardiac: continue to monitor HR/BP Renal: F/U I&O, keep IV fluid Infectious Disease: continue antibiotics Gastrointestinal: continue feedings/current rate, hold feedings Endocrine: check HgA1C, continue sliding scale insulin Hematologic: transfuse if hgb<8.5 Neurologic: PRN Ativan, keep patient comfortable Affect: PRN ativan Subjective ROS Limited/Unobtainable: Yes Constitutional: Reports: no symptoms HEENT: Repors: no symptoms Allergies: Coded Allergies: No Known Allergies (Unverified , 12/13/16) Objective Last 24 Hour Vital Signs Date Time Temp Pulse Resp B/P Pulse Ox O2 Delivery O2 Flow Rate FiO2 12/15/16 16:41 86 14 35 12/15/16 14:59 94 14 35 12/15/16 12:33 87 14 35 12/15/16 12:00 98.8 92 14 125/72 99 Mechanical Ventilator 35 12/15/16 12:00 86 12/15/16 12:00 40 12/15/16 10:55 143/88 12/15/16 10:44 86 14 35 12/15/16 08:57 87 14 35 12/15/16 08:00 89 12/15/16 08:00 40 12/15/16 08:00 97.7 89 15 143/88 100 Mechanical Ventilator 35 12/15/16 07:10 89 14 35 12/15/16 05:15 97 15 35 12/15/16 04:00 94 14 147/91 100 12/15/16 04:00 89 12/15/16 04:00 40 12/15/16 03:16 95 14 35 12/15/16 01:40 135/79 12/15/16 00:58 90 14 35 12/15/16 00:00 98.6 92 16 135/79 95 12/15/16 00:00 40 12/15/16 00:00 95 12/14/16 23:31 91 14 35 12/14/16 21:24 90 14 35 12/14/16 20:00 98.4 95 14 146/81 93 12/14/16 20:00 40 12/14/16 20:00 92 12/14/16 19:42 92 14 35 Intake and Output 12/14/16 12/15/16 19:00 07:00 Intake Total 510 ml 1033.592 ml Output Total 550 ml 750 ml Balance -40 ml 283.592 ml Intake Free Water 150 ml 50 ml IV Total 473.592 ml Tube Feeding 360 ml 510 ml Output Urine Total 550 ml 750 ml # Bowel Movements 2 General Appearance: WD/WN HEENT: normocephalic, atraumatic Respiratory/Chest: chest wall non-tender, lungs clear Cardiovascular: normal peripheral pulses, normal rate Abdomen: normal bowel sounds, soft, non tender Genitourinary: normal external genitalia Extremities: no cyanosis Skin: no rash Microbiology Date/Time Source Procedure Growth Status 12/13/16 22:34 Nasal Nares MRSA Culture - Final NO METHICILLIN RESISTANT STAPH AUREUS... Complete 12/13/16 21:05 Arm Right Blood Culture - Preliminary NO GROWTH AFTER 24 HOURS Resulted 12/13/16 21:00 Arm Right Blood Culture - Preliminary NO GROWTH AFTER 24 HOURS Resulted Laboratory Tests 12/15/16 05:24: Phenytoin (Dilantin) Level 39.7*H Current Medications Medications (Trade) Dose Ordered Sig/Dolly Route PRN Reason Start Time Stop Time Status Last Admin Dose Admin Acetaminophen (Tylenol) 650 mg Q4H PRN ORAL FEVER 12/14/16 00:00 01/13/17 00:00 Albuterol/ Ipratropium (DuoNeb 0.5-3(2.5)mg/3ml) 3 ml EVERY 4 HOURS PRN HHN Shortness of Breath 12/14/16 00:00 12/19/16 00:00 Ascorbic Acid (Vitamin C) 500 mg DAILY ORAL 12/15/16 09:00 01/14/17 08:59 12/15/16 10:55 Captopril 12.5 mg 12.5 mg Q8H GT 12/15/16 09:30 01/14/17 09:29 12/15/16 10:55 Dextrose (Dextrose 50%) STAT PRN IV Hypoglycemia 12/14/16 00:00 01/13/17 00:00 Heparin Sodium (Porcine) (Heparin 5000 units/ml) 5,000 units EVERY 12 HOURS SUBQ 12/14/16 09:00 01/13/17 08:59 12/15/16 10:57 Insulin Aspart (NovoLOG) BEFORE MEALS AND HS SUBQ 12/14/16 06:30 01/13/17 06:29 12/15/16 12:22 Lansoprazole (Prevacid) 30 mg DAILY GT 12/15/16 09:00 01/14/17 08:59 12/15/16 10:55 Levetiracetam (Keppra) 1,500 mg BID ORAL 12/14/16 18:00 01/13/17 17:59 12/15/16 10:55 Levothyroxine Sodium (Synthroid) 150 mcg DAILY@0630 ORAL 12/14/16 06:30 01/13/17 06:29 12/15/16 06:32 Lorazepam (Ativan 2mg/ml 1ml) 2 mg EVERY 2 HOURS PRN IV For Anxiety 12/14/16 00:00 12/21/16 00:00 Morphine Sulfate (Morphine Sulfate) 4 mg EVERY 4 HOURS PRN IVP Severe Pain (Pain Scale 7-10) 12/14/16 00:00 12/21/16 00:00 Ondansetron HCl (Zofran) 4 mg Q6H PRN IVP Nausea & Vomiting 12/14/16 00:00 01/13/17 00:00 Piperacillin Sod/ Tazobactam Sod/ Sodium Chloride (Zosyn/Sodium Chloride) 110 ml @ 27.5 mls/hr EVERY 8 HOURS IVPB 12/15/16 14:00 12/22/16 13:59 12/15/16 14:27 Polyethylene Glycol (Miralax) 17 gm DAILYPRN PRN ORAL Constipation 12/14/16 00:00 01/13/17 00:00 REY YAN Dec 15, 2016 17:01
[2016-12-15 20:00] VITALS: BP 141/71
[2016-12-16] VITALS: BP 137/82
[2016-12-16] MEDS: Captopril 12.5mg tab GT SCH ×3 (01:46→17:30)
[2016-12-16 04:00] VITALS: BP 128/82
[2016-12-16] MEDS: NovoLOG Insulin Flexpen SUBQ SCH ×4 (06:30→21:00)
[2016-12-16] MEDS: Piperacillin/Tazobactam 3.375 GM in NS 110 ML IVPB SCH ×3 (06:31→21:02)
[2016-12-16 07:46] LABS: BASOPHILS % (AUTO) 0.8 % (0.0-2.0); EOSINOPHILS % (AUTO) 4.6 % (0.0-3.0); MEAN CORPUSCULAR HEMOGLOBIN 31.5 PG (27.0-31.0); MEAN CORPUSCULAR HGB CONC 32.9 G/DL (32.0-36.0); MEAN CORPUSCULAR VOLUME 96 FL (80-99); MEAN PLATELET VOLUME 7.2 FL (6.5-10.1); MONOCYTES % (AUTO) 9.9 % (1.0-10.0); NEUTROPHILS % (AUTO) 55.8 % (45.0-75.0); PLATELET COUNT 226 K/UL (150-450); RED BLOOD COUNT 3.68 M/UL (4.70-6.10); RED CELL DISTRIBUTION WIDTH 14.4 % (11.6-14.8); WHITE BLOOD COUNT 6.2 K/UL (4.8-10.8)
[2016-12-16 08:00] VITALS: BP 140/86
[2016-12-16 08:07] LABS: ALANINE AMINOTRANSFERASE 15 U/L (3-41); ALBUMIN/GLOBULIN RATIO 0.8 (1.0-2.7); ANION GAP 16 (5-15); ASPARTATE AMINO TRANSFERASE 29 U/L (5-40); CALCIUM 8.7 mg/dL (8.6-10.2); CARBON DIOXIDE 27 mEQ/L (20-30); CHLORIDE 98 mEQ/L (98-107); CREATININE 0.8 mg/dL (0.7-1.2); GLOMERULAR FILTRATION RATE > 60 mL/min (>60); HEMOLYSIS 4; MAGNESIUM 2.3 mg/dL (1.7-2.5); PHOSPHORUS 3.1 mg/dL (2.5-4.8); POTASSIUM 3.5 mEQ/L (3.4-4.9); SODIUM 141 mEQ/L (135-145); TOTAL PROTEIN 7.7 g/dL (6.6-8.7)
[2016-12-16] MEDS: Ascorbic Acid 500mg tab ORAL SCH (08:43)
[2016-12-16] MEDS: Heparin 5000 units/ml inj SUBQ SCH ×2 (08:57→21:01)
--- NOTE | 2016-12-16 09:08 | Infectious Diseases Prog Note ---
Assessment/Plan Assessment/Plan ASSESSMENT: 66 y/o male with: // Rash, possible scabies SP permethrin 12/15 // Mena intertrigo // Stage III sacral decubitus, not grossly infected // Leukocytosis, mild - resolved, afebrile // Dilantin toxicity - h/o seizure disorder // Chronic VDRF SP trach, PEG // Chronic encephalopathy / persistent vegetative state // [place] resident // NKDA // Full Code PLAN: - DC zosyn d# 3, monitor pt off of ABX - repeat permethrin 12/22 - f/u final cultures - monitor CBC, temperatures - monitor BMP - vent support, trach care, aspiration precautions Subjective Allergies: Coded Allergies: No Known Allergies (Unverified , 12/13/16) Subjective remains afebrile on vent cultures NGTD Objective Vital Signs Last 24 Hour Vital Signs Date Time Temp Pulse Resp B/P Pulse Ox O2 Delivery O2 Flow Rate FiO2 12/16/16 08:43 140/86 12/16/16 07:44 40 12/16/16 07:29 72 14 35 12/16/16 05:15 76 14 35 12/16/16 04:00 40 12/16/16 04:00 98.0 80 16 128/82 100 Mechanical Ventilator 35 12/16/16 03:49 73 12/16/16 03:08 81 14 35 12/16/16 01:46 137/82 12/16/16 01:21 82 15 35 12/16/16 00:00 98.6 79 15 137/82 100 Mechanical Ventilator 35 12/16/16 00:00 40 12/16/16 00:00 87 12/15/16 23:27 78 15 35 12/15/16 21:14 83 15 35 12/15/16 20:00 40 12/15/16 20:00 88 12/15/16 20:00 98.6 88 18 141/71 100 Mechanical Ventilator 35 12/15/16 19:15 84 14 35 12/15/16 18:01 144/78 12/15/16 16:41 86 14 35 12/15/16 16:00 87 12/15/16 16:00 98.6 87 15 144/78 100 Mechanical Ventilator 35 12/15/16 16:00 40 12/15/16 14:59 94 14 35 12/15/16 12:33 87 14 35 12/15/16 12:00 98.8 92 14 125/72 99 Mechanical Ventilator 35 12/15/16 12:00 86 12/15/16 12:00 40 12/15/16 10:55 143/88 12/15/16 10:44 86 14 35 Height (Feet): 5 Height (Inches): 7.00 Weight (Pounds): 170 General Appearance: no acute distress HEENT: status post trach Respiratory/Chest: decreased breath sounds Cardiovascular: normal rate, regular rhythm Abdomen: normal bowel sounds, soft, non tender, non distended, other - PEG Microbiology Date/Time Source Procedure Growth Status 12/13/16 22:34 Nasal Nares MRSA Culture - Final NO METHICILLIN RESISTANT STAPH AUREUS... Complete 12/13/16 21:05 Arm Right Blood Culture - Preliminary NO GROWTH AFTER 48 HOURS Resulted 12/13/16 21:00 Arm Right Blood Culture - Preliminary NO GROWTH AFTER 48 HOURS Resulted Laboratory Tests Test 12/16/16 05:28 White Blood Count 6.2 K/UL (4.8-10.8) Red Blood Count 3.68 M/UL (4.70-6.10) L Hemoglobin 11.6 G/DL (14.2-18.0) L Hematocrit 35.3 % (42.0-52.0) L Mean Corpuscular Volume 96 FL (80-99) Mean Corpuscular Hemoglobin 31.5 PG (27.0-31.0) H Mean Corpuscular Hemoglobin Concent 32.9 G/DL (32.0-36.0) Red Cell Distribution Width 14.4 % (11.6-14.8) Platelet Count 226 K/UL (150-450) Mean Platelet Volume 7.2 FL (6.5-10.1) Neutrophils (%) (Auto) 55.8 % (45.0-75.0) Lymphocytes (%) (Auto) 29.0 % (20.0-45.0) Monocytes (%) (Auto) 9.9 % (1.0-10.0) Eosinophils (%) (Auto) 4.6 % (0.0-3.0) H Basophils (%) (Auto) 0.8 % (0.0-2.0) Sodium Level 141 mEQ/L (135-145) Potassium Level 3.5 mEQ/L (3.4-4.9) Chloride Level 98 mEQ/L (98-107) Carbon Dioxide Level 27 mEQ/L (20-30) Anion Gap 16 (5-15) H Blood Urea Nitrogen 16 mg/dL (7-23) Creatinine 0.8 mg/dL (0.7-1.2) Estimat Glomerular Filtration Rate > 60 mL/min (>60) Glucose Level 112 mg/dL (74-106) H Calcium Level 8.7 mg/dL (8.6-10.2) Phosphorus Level 3.1 mg/dL (2.5-4.8) Magnesium Level 2.3 mg/dL (1.7-2.5) Total Bilirubin 0.2 mg/dL (0.0-1.2) Aspartate Amino Transf (AST/SGOT) 29 U/L (5-40) Alanine Aminotransferase (ALT/SGPT) 15 U/L (3-41) Alkaline Phosphatase 115 U/L (40-129) Total Protein 7.7 g/dL (6.6-8.7) Albumin 3.5 g/dL (3.5-5.2) Globulin 4.2 g/dL Albumin/Globulin Ratio 0.8 (1.0-2.7) L Phenytoin (Dilantin) Level 36.7 ug/mL (10-20) *H Current Medications Medications (Trade) Dose Ordered Sig/Dolly Route PRN Reason Start Time Stop Time Status Last Admin Dose Admin Acetaminophen (Tylenol) 650 mg Q4H PRN ORAL FEVER 12/14/16 00:00 01/13/17 00:00 Albuterol/ Ipratropium (DuoNeb 0.5-3(2.5)mg/3ml) 3 ml EVERY 4 HOURS PRN HHN Shortness of Breath 12/14/16 00:00 12/19/16 00:00 Ascorbic Acid (Vitamin C) 500 mg DAILY ORAL 12/15/16 09:00 01/14/17 08:59 12/16/16 08:43 Captopril 12.5 mg 12.5 mg Q8H GT 12/15/16 09:30 01/14/17 09:29 12/16/16 08:43 Dextrose (Dextrose 50%) STAT PRN IV Hypoglycemia 12/14/16 00:00 01/13/17 00:00 Heparin Sodium (Porcine) (Heparin 5000 units/ml) 5,000 units EVERY 12 HOURS SUBQ 12/14/16 09:00 01/13/17 08:59 12/15/16 20:21 Insulin Aspart (NovoLOG) BEFORE MEALS AND HS SUBQ 12/14/16 06:30 01/13/17 06:29 12/16/16 06:30 Lansoprazole (Prevacid) 30 mg DAILY GT 12/15/16 09:00 01/14/17 08:59 12/16/16 08:42 Levetiracetam (Keppra) 1,500 mg BID ORAL 12/14/16 18:00 01/13/17 17:59 12/16/16 08:42 Levothyroxine Sodium (Synthroid) 150 mcg DAILY@0630 ORAL 12/14/16 06:30 01/13/17 06:29 12/16/16 06:24 Lorazepam (Ativan 2mg/ml 1ml) 2 mg EVERY 2 HOURS PRN IV For Anxiety 12/14/16 00:00 12/21/16 00:00 Morphine Sulfate (Morphine Sulfate) 4 mg EVERY 4 HOURS PRN IVP Severe Pain (Pain Scale 7-10) 12/14/16 00:00 12/21/16 00:00 Ondansetron HCl (Zofran) 4 mg Q6H PRN IVP Nausea & Vomiting 12/14/16 00:00 01/13/17 00:00 Piperacillin Sod/ Tazobactam Sod/ Sodium Chloride (Zosyn/Sodium Chloride) 110 ml @ 27.5 mls/hr EVERY 8 HOURS IVPB 12/15/16 14:00 12/22/16 13:59 12/16/16 06:31 Polyethylene Glycol (Miralax) 17 gm DAILYPRN PRN ORAL Constipation 12/14/16 00:00 01/13/17 00:00 FRANCOIS SANDOVAL Dec 16, 2016 09:08
[2016-12-16 12:00] VITALS: BP 133/81
[2016-12-16 16:00] VITALS: BP 134/81
--- NOTE | 2016-12-16 16:37 | Pulmonology Progress Note ---
Assessment/Plan Problems: (1) Dilantin toxicity (2) Low grade fever (3) Ventilator dependent (4) Vegetative state (5) Tracheostomy in place (6) Feeding by G-tube Respiratory: monitor respiratory rate, adjust FIO2, CXR Cardiac: continue to monitor HR/BP Renal: F/U I&O, keep IV fluid Infectious Disease: check cultures, continue antibiotics Gastrointestinal: hold feedings Endocrine: monitor blood sugar Hematologic: monitor H/H Neurologic: PRN Ativan, PRN Morphine Affect: PRN ativan Subjective ROS Limited/Unobtainable: Yes Allergies: Coded Allergies: No Known Allergies (Unverified , 12/13/16) Objective Last 24 Hour Vital Signs Date Time Temp Pulse Resp B/P Pulse Ox O2 Delivery O2 Flow Rate FiO2 12/16/16 16:10 40 12/16/16 15:37 74 14 35 12/16/16 13:18 76 14 35 12/16/16 12:06 40 12/16/16 12:00 98.2 79 14 133/81 100 Mechanical Ventilator 35 12/16/16 11:17 76 14 35 12/16/16 09:23 79 14 35 12/16/16 08:43 140/86 12/16/16 08:00 98.6 79 14 140/86 100 Mechanical Ventilator 35 12/16/16 07:44 40 12/16/16 07:29 72 14 35 12/16/16 05:15 76 14 35 12/16/16 04:00 40 12/16/16 04:00 98.0 80 16 128/82 100 Mechanical Ventilator 35 12/16/16 03:49 73 12/16/16 03:08 81 14 35 12/16/16 01:46 137/82 12/16/16 01:21 82 15 35 12/16/16 00:00 98.6 79 15 137/82 100 Mechanical Ventilator 35 12/16/16 00:00 40 12/16/16 00:00 87 12/15/16 23:27 78 15 35 12/15/16 21:14 83 15 35 12/15/16 20:00 40 12/15/16 20:00 88 12/15/16 20:00 98.6 88 18 141/71 100 Mechanical Ventilator 35 12/15/16 19:15 84 14 35 12/15/16 18:01 144/78 12/15/16 16:41 86 14 35 Intake and Output 12/15/16 12/16/16 19:00 07:00 Intake Total 987.50 ml 880.0 ml Output Total 800 ml 350 ml Balance 187.50 ml 530.0 ml Intake Free Water 100 ml 200 ml IV Total 137.50 ml 110.0 ml Tube Feeding 750 ml 570 ml Output Urine Total 800 ml 350 ml # Bowel Movements 2 2 General Appearance: WD/WN HEENT: normocephalic, status post trach Respiratory/Chest: chest wall non-tender Cardiovascular: normal peripheral pulses, normal rate Abdomen: normal bowel sounds, soft, non tender, no scars Extremities: no cyanosis, no clubbing Microbiology Date/Time Source Procedure Growth Status 12/13/16 22:34 Nasal Nares MRSA Culture - Final NO METHICILLIN RESISTANT STAPH AUREUS... Complete 12/13/16 22:34 Rectum VRE Culture - Final Enterococcus Faecalis - Vre Complete 12/13/16 21:05 Arm Right Blood Culture - Preliminary NO GROWTH AFTER 48 HOURS Resulted 12/13/16 21:00 Arm Right Blood Culture - Preliminary NO GROWTH AFTER 48 HOURS Resulted Laboratory Tests 12/16/16 05:28: White Blood Count 6.2, Red Blood Count 3.68L, Hemoglobin 11.6L, Hematocrit 35.3L , Mean Corpuscular Volume 96, Mean Corpuscular Hemoglobin 31.5H, Mean Corpuscular Hemoglobin Concent 32.9, Red Cell Distribution Width 14.4, Platelet Count 226, Mean Platelet Volume 7.2, Neutrophils (%) (Auto) 55.8, Lymphocytes (% ) (Auto) 29.0, Monocytes (%) (Auto) 9.9, Eosinophils (%) (Auto) 4.6H, Basophils (%) (Auto) 0.8, Sodium Level 141, Potassium Level 3.5, Chloride Level 98, Carbon Dioxide Level 27, Anion Gap 16H, Blood Urea Nitrogen 16, Creatinine 0.8, Estimat Glomerular Filtration Rate > 60, Glucose Level 112H, Calcium Level 8.7, Phosphorus Level 3.1, Magnesium Level 2.3, Total Bilirubin 0.2, Aspartate Amino Transf (AST/SGOT) 29, Alanine Aminotransferase (ALT/SGPT) 15, Alkaline Phosphatase 115, Total Protein 7.7, Albumin 3.5, Globulin 4.2, Albumin/Globulin Ratio 0.8L, Phenytoin (Dilantin) Level 36.7*H Current Medications Medications (Trade) Dose Ordered Sig/Dolly Route PRN Reason Start Time Stop Time Status Last Admin Dose Admin Acetaminophen (Tylenol) 650 mg Q4H PRN ORAL FEVER 12/14/16 00:00 01/13/17 00:00 Albuterol/ Ipratropium (DuoNeb 0.5-3(2.5)mg/3ml) 3 ml EVERY 4 HOURS PRN HHN Shortness of Breath 12/14/16 00:00 12/19/16 00:00 Ascorbic Acid (Vitamin C) 500 mg DAILY ORAL 12/15/16 09:00 01/14/17 08:59 12/16/16 08:43 Captopril 12.5 mg 12.5 mg Q8H GT 12/15/16 09:30 01/14/17 09:29 12/16/16 08:43 Dextrose (Dextrose 50%) STAT PRN IV Hypoglycemia 12/14/16 00:00 01/13/17 00:00 Heparin Sodium (Porcine) (Heparin 5000 units/ml) 5,000 units EVERY 12 HOURS SUBQ 12/14/16 09:00 01/13/17 08:59 12/16/16 08:57 Insulin Aspart (NovoLOG) BEFORE MEALS AND HS SUBQ 12/14/16 06:30 01/13/17 06:29 12/16/16 11:30 Lansoprazole (Prevacid) 30 mg DAILY GT 12/15/16 09:00 01/14/17 08:59 12/16/16 08:42 Levetiracetam (Keppra) 1,500 mg BID ORAL 12/14/16 18:00 01/13/17 17:59 12/16/16 08:42 Levothyroxine Sodium (Synthroid) 150 mcg DAILY@0630 ORAL 12/14/16 06:30 01/13/17 06:29 12/16/16 06:24 Lorazepam (Ativan 2mg/ml 1ml) 2 mg EVERY 2 HOURS PRN IV For Anxiety 12/14/16 00:00 12/21/16 00:00 Morphine Sulfate (Morphine Sulfate) 4 mg EVERY 4 HOURS PRN IVP Severe Pain (Pain Scale 7-10) 12/14/16 00:00 12/21/16 00:00 Nystatin (Nystatin Cr) 1 applic THREE TIMES A DAY TOPIC 12/16/16 13:00 01/15/17 12:59 12/16/16 12:31 Ondansetron HCl (Zofran) 4 mg Q6H PRN IVP Nausea & Vomiting 12/14/16 00:00 01/13/17 00:00 Piperacillin Sod/ Tazobactam Sod/ Sodium Chloride (Zosyn/Sodium Chloride) 110 ml @ 27.5 mls/hr EVERY 8 HOURS IVPB 12/15/16 14:00 12/16/16 23:59 12/16/16 13:55 Polyethylene Glycol (Miralax) 17 gm DAILYPRN PRN ORAL Constipation 12/14/16 00:00 01/13/17 00:00 REY YAN Dec 16, 2016 16:37
[2016-12-16 20:00] VITALS: BP 142/74
[2016-12-17] VITALS: BP 136/70
[2016-12-17] MEDS: Captopril 12.5mg tab GT SCH ×3 (01:34→18:46)
[2016-12-17 04:00] VITALS: BP 130/68
[2016-12-17] MEDS: NovoLOG Insulin Flexpen SUBQ SCH ×4 (06:30→21:00)
[2016-12-17 07:45] LABS: EOSINOPHILS % (AUTO) 5.4 % (0.0-3.0); LYMPHOCYTES % (AUTO) 31.7 % (20.0-45.0); MEAN CORPUSCULAR HEMOGLOBIN 30.9 PG (27.0-31.0); MEAN CORPUSCULAR HGB CONC 32.3 G/DL (32.0-36.0); MEAN CORPUSCULAR VOLUME 96 FL (80-99); MEAN PLATELET VOLUME 6.9 FL (6.5-10.1); MONOCYTES % (AUTO) 8.9 % (1.0-10.0); NEUTROPHILS % (AUTO) 53.1 % (45.0-75.0); PLATELET COUNT 220 K/UL (150-450); RED BLOOD COUNT 3.93 M/UL (4.70-6.10); RED CELL DISTRIBUTION WIDTH 13.8 % (11.6-14.8); WHITE BLOOD COUNT 6.2 K/UL (4.8-10.8)
[2016-12-17 08:00] VITALS: BP 145/83
[2016-12-17 08:02] LABS: ALANINE AMINOTRANSFERASE 15 U/L (3-41); ALBUMIN/GLOBULIN RATIO 0.8 (1.0-2.7); ANION GAP 19 (5-15); ASPARTATE AMINO TRANSFERASE 27 U/L (5-40); CALCIUM 8.9 mg/dL (8.6-10.2); CARBON DIOXIDE 24 mEQ/L (20-30); CHLORIDE 101 mEQ/L (98-107); CREATININE 0.7 mg/dL (0.7-1.2); GLOMERULAR FILTRATION RATE > 60 mL/min (>60); HEMOLYSIS 5; MAGNESIUM 2.1 mg/dL (1.7-2.5); SODIUM 144 mEQ/L (135-145); TOTAL PROTEIN 7.3 g/dL (6.6-8.7)
[2016-12-17] MEDS: Ascorbic Acid 500mg tab ORAL SCH (08:51)
[2016-12-17] MEDS: Heparin 5000 units/ml inj SUBQ SCH ×2 (08:53→21:00)
[2016-12-17 12:00] VITALS: BP 143/74
--- NOTE | 2016-12-17 12:05 | Neurology Progress Note ---
Interim History Interim History ROS Limited/Unobtainable: Yes Complaints: coma Events: no sz noted Objective Physical Exam Last Vital Signs Date Time Temp Pulse Resp B/P Pulse Ox O2 Delivery O2 Flow Rate FiO2 12/17/16 11:38 35 12/17/16 11:38 79 12/17/16 10:48 14 12/17/16 08:56 143/83 12/17/16 08:00 97.9 100 Mechanical Ventilator Laboratory Tests Test 12/17/16 07:10 White Blood Count 6.2 K/UL (4.8-10.8) Red Blood Count 3.93 M/UL (4.70-6.10) L Hemoglobin 12.2 G/DL (14.2-18.0) L Hematocrit 37.6 % (42.0-52.0) L Mean Corpuscular Volume 96 FL (80-99) Mean Corpuscular Hemoglobin 30.9 PG (27.0-31.0) Mean Corpuscular Hemoglobin Concent 32.3 G/DL (32.0-36.0) Red Cell Distribution Width 13.8 % (11.6-14.8) Platelet Count 220 K/UL (150-450) Mean Platelet Volume 6.9 FL (6.5-10.1) Neutrophils (%) (Auto) 53.1 % (45.0-75.0) Lymphocytes (%) (Auto) 31.7 % (20.0-45.0) Monocytes (%) (Auto) 8.9 % (1.0-10.0) Eosinophils (%) (Auto) 5.4 % (0.0-3.0) H Basophils (%) (Auto) 1.0 % (0.0-2.0) Sodium Level 144 mEQ/L (135-145) Potassium Level 4.0 mEQ/L (3.4-4.9) Chloride Level 101 mEQ/L (98-107) Carbon Dioxide Level 24 mEQ/L (20-30) Anion Gap 19 (5-15) H Blood Urea Nitrogen 21 mg/dL (7-23) Creatinine 0.7 mg/dL (0.7-1.2) Estimat Glomerular Filtration Rate > 60 mL/min (>60) Glucose Level 102 mg/dL (74-106) Calcium Level 8.9 mg/dL (8.6-10.2) Phosphorus Level 3.0 mg/dL (2.5-4.8) Magnesium Level 2.1 mg/dL (1.7-2.5) Total Bilirubin 0.3 mg/dL (0.0-1.2) Aspartate Amino Transf (AST/SGOT) 27 U/L (5-40) Alanine Aminotransferase (ALT/SGPT) 15 U/L (3-41) Alkaline Phosphatase 115 U/L (40-129) Total Protein 7.3 g/dL (6.6-8.7) Albumin 3.3 g/dL (3.5-5.2) L Globulin 4.0 g/dL Albumin/Globulin Ratio 0.8 (1.0-2.7) L Phenytoin (Dilantin) Level 34.1 ug/mL (10-20) *H General: well developed, no acute distress, other - on vent Neck: other Neurologic Exam Mental Status: other - no eyecontact nonverbal Speech: other - mute Language: other Cranial Nerve II: no papilledema Cranial Nerves III, IV, : PERRLA, EOMI Cranial Nerve V: normal facial sensations Cranial Nerve VII: normal facial expressions Cranial Nerve VIII: no nystagmus Cranial Nerve IX: other - no gag Cranial Nerve XI: other Cranial Nerve XII: no tongue atrophy/fasciculations Motor System: other - spastic paresis Sensory: other Coordination: other Deep Tendon Reflexes: 0 ankle (L), 0 ankle (R), 0 bicep (L), 0 bicep (R), 0 brachioradialis (L), 0 brachioradialis (R), 0 knee (L), 0 knee (R), 0 tricep (L) , 0 tricep (R) Reflexes: mute plantar (L), mute plantar (R) Impression/Recommendations Problems: (1) Dilantin toxicity (2) Severe anoxic-ischemic encephalopathy (3) Seizure disorder as sequela of cerebrovascular accident (4) Ventilator dependent (5) Tracheostomy in place (6) Vegetative state Status: unchanged Recommendations #[id number] up [id number] bid d/c ANA Mixon Dec 17, 2016 12:05
--- NOTE | 2016-12-17 12:27 | Pulmonology Progress Note ---
Assessment/Plan Problems: (1) Dilantin toxicity (2) Low grade fever (3) Ventilator dependent (4) Vegetative state (5) Tracheostomy in place (6) Feeding by G-tube Respiratory: monitor respiratory rate, adjust FIO2, CXR Cardiac: continue to monitor HR/BP Renal: F/U I&O, keep IV fluid Infectious Disease: check cultures, other - off abx Gastrointestinal: continue feedings/current rate Endocrine: monitor blood sugar, continue sliding scale insulin Hematologic: monitor H/H, transfuse if hgb<8.5 Neurologic: PRN Ativan, PRN Morphine, keep patient comfortable Prophylaxis: Protonix Disposition: keep in ICU Notes Reviewed: neuro Discussed with: nurses, consultants, telehealth case manager Subjective ROS Limited/Unobtainable: No Constitutional: Reports: no symptoms HEENT: Repors: no symptoms Respiratory: Reports: no symptoms Allergies: Coded Allergies: No Known Allergies (Unverified , 12/13/16) Objective Last 24 Hour Vital Signs Date Time Temp Pulse Resp B/P Pulse Ox O2 Delivery O2 Flow Rate FiO2 12/17/16 11:38 35 12/17/16 11:38 79 12/17/16 10:48 75 14 35 12/17/16 08:56 143/83 12/17/16 08:53 78 14 35 12/17/16 08:00 97.9 70 16 145/83 100 Mechanical Ventilator 12/17/16 08:00 35 12/17/16 08:00 77 12/17/16 06:35 75 14 35 12/17/16 05:30 74 14 35 12/17/16 04:00 40 12/17/16 04:00 75 12/17/16 04:00 98.2 70 16 130/68 100 Mechanical Ventilator 12/17/16 03:23 81 14 35 12/17/16 01:34 136/70 12/17/16 01:20 78 14 35 12/17/16 00:00 98.6 74 16 136/70 94 Mechanical Ventilator 12/17/16 00:00 79 12/17/16 00:00 40 12/16/16 23:09 90 21 35 12/16/16 20:41 84 14 35 12/16/16 20:00 40 12/16/16 20:00 98.0 80 16 142/74 100 Mechanical Ventilator 6/25/17 20:00 78 12/16/16 19:20 80 14 35 12/16/16 17:30 134/81 12/16/16 17:19 83 14 35 12/16/16 16:10 40 12/16/16 16:00 97.9 73 15 134/81 99 Mechanical Ventilator 45 12/16/16 15:37 74 14 35 12/16/16 13:18 76 14 35 Intake and Output 12/16/16 12/17/16 19:00 07:00 Intake Total 740.0 ml 640 ml Output Total 350 ml 1150 ml Balance 390.0 ml -510 ml Intake Free Water 100 ml 250 ml IV Total 220.0 ml Tube Feeding 60 ml 390 ml Other 360 ml Output Urine Total 350 ml 1150 ml General Appearance: WD/WN HEENT: normocephalic Respiratory/Chest: chest wall non-tender, normal breath sounds Cardiovascular: normal peripheral pulses, normal rate Abdomen: normal bowel sounds, no organomegaly Genitourinary: normal external genitalia Extremities: no cyanosis, no clubbing 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 Lymphatic: no neck adenopathy Musculoskeletal: normal muscle bulk Laboratory Tests 12/17/16 07:10: White Blood Count 6.2, Red Blood Count 3.93L, Hemoglobin 12.2L, Hematocrit 37.6L , Mean Corpuscular Volume 96, Mean Corpuscular Hemoglobin 30.9, Mean Corpuscular Hemoglobin Concent 32.3, Red Cell Distribution Width 13.8, Platelet Count 220, Mean Platelet Volume 6.9, Neutrophils (%) (Auto) 53.1, Lymphocytes (% ) (Auto) 31.7, Monocytes (%) (Auto) 8.9, Eosinophils (%) (Auto) 5.4H, Basophils (%) (Auto) 1.0, Sodium Level 144, Potassium Level 4.0, Chloride Level 101, Carbon Dioxide Level 24, Anion Gap 19H, Blood Urea Nitrogen 21, Creatinine 0.7, Estimat Glomerular Filtration Rate > 60, Glucose Level 102, Calcium Level 8.9, Phosphorus Level 3.0, Magnesium Level 2.1, Total Bilirubin 0.3, Aspartate Amino Transf (AST/SGOT) 27, Alanine Aminotransferase (ALT/SGPT) 15, Alkaline Phosphatase 115, Total Protein 7.3, Albumin 3.3L, Globulin 4.0, Albumin/ Globulin Ratio 0.8L, Phenytoin (Dilantin) Level 34.1*H Current Medications Medications (Trade) Dose Ordered Sig/Dolly Route PRN Reason Start Time Stop Time Status Last Admin Dose Admin Acetaminophen (Tylenol) 650 mg Q4H PRN ORAL FEVER 12/14/16 00:00 01/13/17 00:00 Albuterol/ Ipratropium (DuoNeb 0.5-3(2.5)mg/3ml) 3 ml EVERY 4 HOURS PRN HHN Shortness of Breath 12/14/16 00:00 12/19/16 00:00 Ascorbic Acid (Vitamin C) 500 mg DAILY ORAL 12/15/16 09:00 01/14/17 08:59 12/17/16 08:51 Captopril (Capoten) 12.5 mg Q8H GT 12/15/16 09:30 01/14/17 09:29 12/17/16 08:56 Dextrose (Dextrose 50%) STAT PRN IV Hypoglycemia 12/14/16 00:00 01/13/17 00:00 Heparin Sodium (Porcine) (Heparin 5000 units/ml) 5,000 units EVERY 12 HOURS SUBQ 12/14/16 09:00 01/13/17 08:59 12/17/16 08:53 Insulin Aspart (NovoLOG) BEFORE MEALS AND HS SUBQ 12/14/16 06:30 01/13/17 06:29 12/16/16 11:30 Lansoprazole (Prevacid) 30 mg DAILY GT 12/15/16 09:00 01/14/17 08:59 12/17/16 08:51 Levetiracetam (Keppra) 1,500 mg BID ORAL 12/14/16 18:00 01/13/17 17:59 12/17/16 10:27 Levothyroxine Sodium (Synthroid) 150 mcg DAILY@0630 ORAL 12/14/16 06:30 01/13/17 06:29 12/17/16 06:14 Lorazepam (Ativan 2mg/ml 1ml) 2 mg EVERY 2 HOURS PRN IV For Anxiety 12/14/16 00:00 12/21/16 00:00 Morphine Sulfate (Morphine Sulfate) 4 mg EVERY 4 HOURS PRN IVP Severe Pain (Pain Scale 7-10) 12/14/16 00:00 12/21/16 00:00 Nystatin (Nystatin Cr) 1 applic THREE TIMES A DAY TOPIC 12/16/16 13:00 01/15/17 12:59 12/17/16 08:54 Ondansetron HCl (Zofran) 4 mg Q6H PRN IVP Nausea & Vomiting 12/14/16 00:00 01/13/17 00:00 Polyethylene Glycol (Miralax) 17 gm DAILYPRN PRN ORAL Constipation 12/14/16 00:00 01/13/17 00:00 12/17/16 08:51 REY YAN Dec 17, 2016 12:26
[2016-12-17] MEDS ORDERED: NS 275ml ONE (13:48)
[2016-12-17 16:45] VITALS: BP 140/79
--- NOTE | 2016-12-17 20:24 | Cardiology Report ---
APPROVED REPORT EKG Measurement Heart [id number] Normal sinus rhythm Right axis deviation Pulmonary disease pattern Abnormal ECG
[2016-12-17 20:32] VITALS: BP 134/81
--- NOTE | 2016-12-17 20:36 | Infectious Diseases Prog Note ---
Assessment/Plan Assessment/Plan ASSESSMENT: 66 y/o male with: // Rash, possible scabies SP permethrin 12/15 // Mena intertrigo // Stage III sacral decubitus, not grossly infected // Leukocytosis, mild - resolved, afebrile // Dilantin toxicity - h/o seizure disorder // Chronic VDRF SP trach, PEG // Chronic encephalopathy / persistent vegetative state // [facility] resident // VRE colonized // NKDA // Full Code PLAN: - monitor pt off of ABX ( 12/16 SP zosyn d# 3 ) - repeat permethrin 12/22 - f/u final cultures - monitor CBC, temperatures - monitor BMP - vent support, trach care, aspiration precautions Subjective Allergies: Coded Allergies: No Known Allergies (Unverified , 12/13/16) Subjective remains afebrile on vent cultures NGTD Objective Vital Signs Last 24 Hour Vital Signs Date Time Temp Pulse Resp B/P Pulse Ox O2 Delivery O2 Flow Rate FiO2 12/17/16 20:32 99.0 82 14 134/81 99 Mechanical Ventilator 35 12/17/16 20:00 79 12/17/16 19:18 78 15 35 12/17/16 18:46 140/79 12/17/16 16:45 98.1 79 18 140/79 100 Mechanical Ventilator 12/17/16 16:33 73 14 35 12/17/16 16:00 79 12/17/16 16:00 35 12/17/16 14:55 79 14 35 12/17/16 12:43 81 14 35 12/17/16 12:00 97.7 80 17 143/74 100 Mechanical Ventilator 12/17/16 11:38 35 12/17/16 11:38 79 12/17/16 10:48 75 14 35 12/17/16 08:56 143/83 12/17/16 08:53 78 14 35 12/17/16 08:00 97.9 70 16 145/83 100 Mechanical Ventilator 12/17/16 08:00 35 12/17/16 08:00 77 12/17/16 06:35 75 14 35 12/17/16 05:30 74 14 35 12/17/16 04:00 40 12/17/16 04:00 75 12/17/16 04:00 98.2 70 16 130/68 100 Mechanical Ventilator 12/17/16 03:23 81 14 35 12/17/16 01:34 136/70 12/17/16 01:20 78 14 35 12/17/16 00:00 98.6 74 16 136/70 94 Mechanical Ventilator 12/17/16 00:00 79 12/17/16 00:00 40 12/16/16 23:09 90 21 35 12/16/16 20:41 84 14 35 Height (Feet): 5 Height (Inches): 7.00 Weight (Pounds): 170 General Appearance: no acute distress HEENT: status post trach Respiratory/Chest: decreased breath sounds Cardiovascular: normal rate, regular rhythm Abdomen: normal bowel sounds, soft, non tender, non distended Laboratory Tests Test 12/17/16 07:10 White Blood Count 6.2 K/UL (4.8-10.8) Red Blood Count 3.93 M/UL (4.70-6.10) L Hemoglobin 12.2 G/DL (14.2-18.0) L Hematocrit 37.6 % (42.0-52.0) L Mean Corpuscular Volume 96 FL (80-99) Mean Corpuscular Hemoglobin 30.9 PG (27.0-31.0) Mean Corpuscular Hemoglobin Concent 32.3 G/DL (32.0-36.0) Red Cell Distribution Width 13.8 % (11.6-14.8) Platelet Count 220 K/UL (150-450) Mean Platelet Volume 6.9 FL (6.5-10.1) Neutrophils (%) (Auto) 53.1 % (45.0-75.0) Lymphocytes (%) (Auto) 31.7 % (20.0-45.0) Monocytes (%) (Auto) 8.9 % (1.0-10.0) Eosinophils (%) (Auto) 5.4 % (0.0-3.0) H Basophils (%) (Auto) 1.0 % (0.0-2.0) Sodium Level 144 mEQ/L (135-145) Potassium Level 4.0 mEQ/L (3.4-4.9) Chloride Level 101 mEQ/L (98-107) Carbon Dioxide Level 24 mEQ/L (20-30) Anion Gap 19 (5-15) H Blood Urea Nitrogen 21 mg/dL (7-23) Creatinine 0.7 mg/dL (0.7-1.2) Estimat Glomerular Filtration Rate > 60 mL/min (>60) Glucose Level 102 mg/dL (74-106) Calcium Level 8.9 mg/dL (8.6-10.2) Phosphorus Level 3.0 mg/dL (2.5-4.8) Magnesium Level 2.1 mg/dL (1.7-2.5) Total Bilirubin 0.3 mg/dL (0.0-1.2) Aspartate Amino Transf (AST/SGOT) 27 U/L (5-40) Alanine Aminotransferase (ALT/SGPT) 15 U/L (3-41) Alkaline Phosphatase 115 U/L (40-129) Total Protein 7.3 g/dL (6.6-8.7) Albumin 3.3 g/dL (3.5-5.2) L Globulin 4.0 g/dL Albumin/Globulin Ratio 0.8 (1.0-2.7) L Phenytoin (Dilantin) Level 34.1 ug/mL (10-20) *H Current Medications Medications (Trade) Dose Ordered Sig/Dolly Route PRN Reason Start Time Stop Time Status Last Admin Dose Admin Acetaminophen (Tylenol) 650 mg Q4H PRN ORAL FEVER 12/14/16 00:00 01/13/17 00:00 Albuterol/ Ipratropium (DuoNeb 0.5-3(2.5)mg/3ml) 3 ml EVERY 4 HOURS PRN HHN Shortness of Breath 12/14/16 00:00 12/19/16 00:00 Ascorbic Acid (Vitamin C) 500 mg DAILY ORAL 12/15/16 09:00 01/14/17 08:59 12/17/16 08:51 Captopril (Capoten) 12.5 mg Q8H GT 12/15/16 09:30 01/14/17 09:29 12/17/16 18:46 Dextrose (Dextrose 50%) STAT PRN IV Hypoglycemia 12/14/16 00:00 01/13/17 00:00 Heparin Sodium (Porcine) (Heparin 5000 units/ml) 5,000 units EVERY 12 HOURS SUBQ 12/14/16 09:00 01/13/17 08:59 12/17/16 08:53 Insulin Aspart (NovoLOG) BEFORE MEALS AND HS SUBQ 12/14/16 06:30 01/13/17 06:29 12/17/16 12:49 Lansoprazole (Prevacid) 30 mg DAILY GT 12/15/16 09:00 01/14/17 08:59 12/17/16 08:51 Levetiracetam (Keppra) 1,500 mg BID ORAL 12/14/16 18:00 01/13/17 17:59 12/17/16 18:47 Levothyroxine Sodium (Synthroid) 150 mcg DAILY@0630 ORAL 12/14/16 06:30 01/13/17 06:29 12/17/16 06:14 Lorazepam (Ativan 2mg/ml 1ml) 2 mg EVERY 2 HOURS PRN IV For Anxiety 12/14/16 00:00 12/21/16 00:00 Morphine Sulfate (Morphine Sulfate) 4 mg EVERY 4 HOURS PRN IVP Severe Pain (Pain Scale 7-10) 12/14/16 00:00 12/21/16 00:00 Nystatin (Nystatin Cr) 1 applic THREE TIMES A DAY TOPIC 12/16/16 13:00 01/15/17 12:59 12/17/16 18:46 Ondansetron HCl (Zofran) 4 mg Q6H PRN IVP Nausea & Vomiting 12/14/16 00:00 01/13/17 00:00 Polyethylene Glycol (Miralax) 17 gm DAILYPRN PRN ORAL Constipation 12/14/16 00:00 01/13/17 00:00 12/17/16 08:51 FRANCOIS SANDOVAL Dec 17, 2016 20:36
[2016-12-17] MEDS ORDERED: Miralax 17gm pkt GT PRN ×2 (23:15→23:30)
[2016-12-17] MEDS ORDERED: Acetaminophen 650mg/20.3ml GT PRN (23:30)
[2016-12-18 00:46] VITALS: BP 134/85
[2016-12-18] MEDS: Captopril 12.5mg tab GT SCH ×2 (01:21→09:37)
[2016-12-18 04:00] VITALS: BP 139/86
[2016-12-18] MEDS: NovoLOG Insulin Flexpen SUBQ SCH ×2 (05:38→11:30)
[2016-12-18 08:00] VITALS: BP 128/77
[2016-12-18] MEDS ORDERED: Ascorbic Acid 500mg tab GT SCH ×2 (09:00)
[2016-12-18] MEDS: Heparin 5000 units/ml inj SUBQ SCH (09:38)
[2016-12-18 12:00] VITALS: BP 142/81
--- NOTE | 2016-12-18 14:44 | Diagnostic Imaging Report ---
APPROVED REPORT CPT Code: 97292 Present Symptoms Shortness of breath BILATERAL: Imaging reveals a patent deep venous system bilaterally. There is no evidence of thrombus within the femoral, popliteal or tibial segments. The greater saphenous veins are also within normal limits. Doppler indicates normal spontaneous flow within these segments.
[2016-12-18 16:00] VITALS: BP 121/71
--- NOTE | 2016-12-18 18:57 | Pulmonology Progress Note ---
Assessment/Plan Problems: (1) Dilantin toxicity (2) Low grade fever (3) Ventilator dependent (4) Vegetative state (5) Tracheostomy in place (6) Feeding by G-tube Respiratory: monitor respiratory rate, adjust FIO2 Cardiac: continue to monitor HR/BP Renal: F/U I&O, keep IV fluid, check electrolytes Infectious Disease: check cultures, continue antibiotics Gastrointestinal: continue feedings/current rate Endocrine: monitor blood sugar, check HgA1C Hematologic: monitor H/H Neurologic: PRN Ativan, PRN Morphine Affect: PRN ativan Subjective ROS Limited/Unobtainable: Yes Constitutional: Reports: no symptoms Allergies: Coded Allergies: No Known Allergies (Unverified , 12/13/16) Objective Last 24 Hour Vital Signs Date Time Temp Pulse Resp B/P Pulse Ox O2 Delivery O2 Flow Rate FiO2 12/18/16 16:00 74 12/18/16 16:00 35 12/18/16 16:00 97.8 71 16 121/71 99 Mechanical Ventilator 35 12/18/16 14:34 77 14 35 12/18/16 12:45 73 14 35 12/18/16 12:00 35 12/18/16 12:00 98.2 74 14 142/81 99 Mechanical Ventilator 35 12/18/16 12:00 74 12/18/16 10:55 71 14 35 12/18/16 09:37 128/77 12/18/16 08:39 67 14 35 12/18/16 08:08 71 12/18/16 08:08 35 12/18/16 08:00 98.1 75 14 128/77 98 Mechanical Ventilator 12/18/16 07:07 70 14 35 12/18/16 05:02 70 14 35 12/18/16 04:00 97.9 74 18 139/86 98 Mechanical Ventilator 35 12/18/16 04:00 69 12/18/16 04:00 35 12/18/16 03:12 68 14 35 12/18/16 01:21 134/85 12/18/16 01:02 81 14 35 12/18/16 00:46 97.9 78 14 134/85 98 Mechanical Ventilator 35 12/18/16 00:00 35 12/18/16 00:00 72 12/17/16 23:01 74 14 35 12/17/16 21:23 78 14 35 12/17/16 20:32 99.0 82 14 134/81 99 Mechanical Ventilator 35 12/17/16 20:00 35 12/17/16 20:00 79 12/17/16 19:18 78 15 35 Intake and Output 12/17/16 12/18/16 19:00 07:00 Intake Total 510 ml 300 ml Output Total 950 ml 350 ml Balance -440 ml -50 ml Intake Free Water 150 ml Tube Feeding 360 ml 270 ml Other 30 ml Output Urine Total 950 ml 350 ml # Bowel Movements 1 2 General Appearance: WD/WN HEENT: normocephalic Respiratory/Chest: chest wall non-tender, lungs clear Cardiovascular: normal peripheral pulses, normal rate Abdomen: normal bowel sounds, soft, non tender Genitourinary: normal external genitalia Extremities: no clubbing Skin: no rash Laboratory Tests 12/18/16 03:30: Phenytoin (Dilantin) Level 26.0H REY YAN Dec 18, 2016 18:57
--- NOTE | 2016-12-20 10:30 | Discharge Summary ---
Discharge Summary Hospital Course Date of Admission Dec 13, 2016 at 21:56 Date of Discharge Dec 18, 2016 at 16:30 Admitting Diagnosis dilantin toxicity HPI Casandra Castañeda is a 66 year old male who was admitted on Dec 13, 2016 at 21: 56 for Dilantin Toxicity Hospital Course [id number] Discharge Discharge Disposition Patient was discharged to SNF/Subacute Facility(03) Discharge Diagnoses: Amy Marinelli NP Dec 20, 2016 10:30
--- NOTE | 2016-12-20 23:32 | Discharge Summary 2 SIG ---
DATE OF ADMISSION: 12/13/2016 DATE OF DISCHARGE: 12/18/2016 CONSULTANTS: 1. Jose Raul Zavala M.D. 2. Wyatt Suh M.D. BRIEF HOSPITAL COURSE: The patient is a 66-year-old male, who is on chronic trach and vent with PEG who is bed-bound on vegetative state, with seizure disorder, [facility] secondary to abnormal laboratories and low-grade fever. He had a Dilantin level of 51. On evaluation at ED, EKG showed right axis deviation. There was no QT prolongation or arrhythmia noted. Dilantin level was 53.5. He was noted to have low-grade fever. Chest x-ray showed no effusion, no pneumothorax. The patient was admitted to [facility] for further evaluation. The patient has seizure disorder and is on two anticonvulsants. Dilantin was decreased to 250 mg daily until therapeutic range. He was continued on Keppra 1500 mg twice a day. He had mild leukocytosis and was given intravenous Zosyn. He had rash, possible scabies and was given permethrin cream. Dilantin level was monitored. Dilantin was eventually discontinued. He had a venous duplex of lower extremity done which were negative. Blood culture did not isolate any growth. He came in with a stage III pressure ulcer on the sacral area. He was given local wound care and low air loss mattress. Dilantin level down trending and the patient was eventually discharged to [facility]. FINAL DIAGNOSES: 1. Dilantin toxicity. 2. Chronic respiratory failure, on vent. 3. Feeding by G-tube. 4. Vegetative state/functional quadriplegia. 5. Mena intertrigo. 6. Rash, possible scabies. 7. Chronic anoxic encephalopathy. 8. Sacral stage III decubitus pressure ulcer present on admission. Lea Nicolas M.D. I have been assigned to dictate discharge summary on this account and I was not involved in the patient's management. mAy Marinelli N.P. DR: Abraham JOB#: [id number] CC:
== END 2016-12-18 16:30 | DRG 722 ==
LOC: ENRESERVTM → ENRESERVDT → EDBD 20:53 → EDBEDREQ 21:47 → EMR 21:55 → 2W 21:56
PROC: 5A1955Z Respiratory Ventilation, Greater than 96 Consecutive Hours (ICD-10-PCS; principal; 2016-12-13)
DX: R50.2 Drug induced fever (principal); R40.3 Persistent vegetative state; G93.1 Anoxic brain damage, not elsewhere classified; Z99.11 Dependence on respirator [ventilator] status; J44.9 Chronic obstructive pulmonary disease, unspecified; L89.153 Pressure ulcer of sacral region, stage 3; J96.10 Chronic respiratory failure, unspecified whether with hypoxia or hypercapnia; T42.0X5A Adverse effect of hydantoin derivatives, initial encounter; E11.9 Type 2 diabetes mellitus without complications; Z43.0 Encounter for attention to tracheostomy; R53.2 Functional quadriplegia; B86 Scabies; B37.2 Candidiasis of skin and nail; I69.398 Other sequelae of cerebral infarction; G40.909 Epilepsy, unspecified, not intractable, without status epilepticus; E03.9 Hypothyroidism, unspecified; E78.5 Hyperlipidemia, unspecified; Z79.4 Long term (current) use of insulin; Z86.74 Personal history of sudden cardiac arrest
CPT/HCPCS: 36415; 71010; 80053; 80069; 80185; 80299; 81003; 82550; 82962; 83735; 84100; 84484; 85025; 87040; 87081; 93005; 93970; 94002; 94003; J1815

== ENCOUNTER 2016-12-23 20:18 | Inpatient (IN) | payer MEDICAID, OTHER ==
[2016-12-23] VITALS (10 sets, daily range): BP systolic 76–136; BP diastolic 44–103
[~2016-12-23] VITALS: Ht 175.3 cm; Wt 78.0 kg
[~2016-12-23 20:18] MED LIST: ACETAMINOP160 MG/52 ORAL; CAPOTEN12.5 MG GT; DILANTIN100 MG ORAL; FAMOTIDINE20 MG ORAL; HUMULIN R100 UNIT/1 SUBQ; KEPPRA1000 MG ORAL; LEVOTHYROXINE150 MCG ORAL; MINIPRESS5 MG PO; PROMOD946 ML PO
--- NOTE | 2016-12-23 20:20 | Emergency Room Report ---
History of Present Illness General Chief Complaint: Fever Source: Medical Record, EMS Present Illness HPI Patient is a 66-year-old male brought in by ambulance after increased fever as well as tachycardia. Patient had been noted to be vent dependent. The patient had noted to have increased heart rate greater than 150. The patient was noted to be febrile as facility. He was noted to have prior history of seizure disorder Allergies: Coded Allergies: No Known Allergies (Unverified , 12/13/16) Patient History Reviewed Nursing Documentation: PMH: Agreed, PSxH: Agreed Review of Systems All Other Systems: limited - by mental status Physical Exam Vital Signs Date Time Temp Pulse Resp B/P Pulse Ox O2 Delivery O2 Flow Rate FiO2 12/23/16 20:08 155 29 100 Mechanical Ventilator 40 General Appearance: moderate distress, Chronically Ill Head: normocephalic Eyes: bilateral eye PERRL ENT: uvula midline, other - tracheostomy Neck: limited range of motion, tracheotomy Respiratory: normal breath sounds Cardiovascular #1: no edema, tachycardia Gastrointestinal: non tender, soft, no mass Genitourinary: normal inspection, other - indwelling catheter Musculoskeletal: other - contracted Neurologic: aphasia, motor weakness Psychiatric: other - unable to assess Skin: other - rash to inguinal area Procedures Critical Care Time Critical Care Time Patient had a critical medical condition which untreated could potentially result in life or limb threatening injury. Total critical care time excluding procedures approximately 45 minutes. Central Line Central Line : Consent: Emergent Central Line Lumen: triple Maximal Sterile Barrier Tech: yes cap, yes mask, yes sterile gown, yes sterile gloves, yes large sterile sheet, yes hand hygiene, yes chlorhexidine prep Central Line Postion: femoral (R) Anesthesia: Lidocaine cc's of anesthesia: 3 Complications: none Central Line Post Position: sutured, good blood return Attempts: Other - two Patient Tolerated: Well Complications: None Progress Initially attempted right subclavian due to body habitus and slight inguinal infection. No patent IV access available. Post procedure XRay showed no foreign body or pneuothorax. Medical Decision Making Diagnostic Impression: Primary Impression: Septic shock Additional Impressions: Urinary tract infection Ventilator dependence Seizure disorder ER Course Patient presented for tachycardia. The differential diagnosis included was not limited to arrhythmia, pulmonary embolism, thyroid storm, sepsis, anemia, myocardial infarction, alcohol withdrawal, stimulant abuse, caffeine overdose among others. Because of complexity of patient's case laboratory testing and imaging studies were ordered. Labs Test 12/23/16 20:20 12/23/16 21:34 White Blood Count 11.7 K/UL (4.8-10.8) Red Blood Count 3.80 M/UL (4.70-6.10) Hemoglobin 12.1 G/DL (14.2-18.0) Hematocrit 36.1 % (42.0-52.0) Mean Corpuscular Volume 95 FL (80-99) Mean Corpuscular Hemoglobin 31.8 PG (27.0-31.0) Mean Corpuscular Hemoglobin Concent 33.5 G/DL (32.0-36.0) Red Cell Distribution Width 14.2 % (11.6-14.8) Platelet Count 234 K/UL (150-450) Mean Platelet Volume 6.9 FL (6.5-10.1) Neutrophils (%) (Auto) 91.6 % (45.0-75.0) Lymphocytes (%) (Auto) 5.0 % (20.0-45.0) Monocytes (%) (Auto) 2.8 % (1.0-10.0) Eosinophils (%) (Auto) 0.3 % (0.0-3.0) Basophils (%) (Auto) 0.3 % (0.0-2.0) Urine Color Yellow Urine Appearance Slightly cloudy Urine pH 8 (4.5-8.0) Urine Specific [place] 1.010 (1.005-1.035) Urine Protein 3+ (NEGATIVE) Urine Glucose (UA) Negative (NEGATIVE) Urine Ketones Negative (NEGATIVE) Urine Occult Blood 5+ (NEGATIVE) Urine Nitrite Negative (NEGATIVE) Urine Bilirubin Negative (NEGATIVE) Urine Urobilinogen Normal MG/DL (0.0-1.0) Urine Leukocyte Esterase 3+ (NEGATIVE) Urine RBC 15-20 /HPF (0 - 0) Urine WBC 20-30 /HPF (0 - 0) Urine Squamous Epithelial Cells None /LPF (NONE/OCC) Urine Triple Phosphate Crystals Moderate /LPF (NONE) Urine Bacteria Moderate /HPF (NONE) Arterial Blood pH 7.291 (7.350-7.450) Arterial Blood Partial Pressure CO2 45.9 mmHg (35.0-45.0) Arterial Blood Partial Pressure O2 157.3 mmHg (75.0-100.0) Arterial Blood HCO3 21.6 mmol/L (22.0-26.0) Arterial Blood Oxygen Saturation 98.7 % (92.0-98.0) Arterial Blood Base Excess -5.0 Karson Test Positive Sodium Level 136 mEQ/L (135-145) Potassium Level 4.1 mEQ/L (3.4-4.9) Chloride Level 97 mEQ/L (98-107) Carbon Dioxide Level 23 mEQ/L (20-30) Anion Gap 16 (5-15) Blood Urea Nitrogen 23 mg/dL (7-23) Creatinine 0.9 mg/dL (0.7-1.2) Estimat Glomerular Filtration Rate > 60 mL/min (>60) Glucose Level 165 mg/dL (74-106) Calcium Level 9.0 mg/dL (8.6-10.2) Total Bilirubin 0.6 mg/dL (0.0-1.2) Aspartate Amino Transf (AST/SGOT) 28 U/L (5-40) Alanine Aminotransferase (ALT/SGPT) 26 U/L (3-41) Alkaline Phosphatase 107 U/L (40-129) Total Creatine Kinase 67 U/L (38-174) Creatine Kinase MB < 1.5 ng/mL (< 6.7) Creatine Kinase MB Relative Index 2.2 Troponin I < 0.30 ng/mL (<=0.30) Pro-B-Type Natriuretic Peptide 420 pg/mL (0-125) Total Protein 8.2 g/dL (6.6-8.7) Albumin 3.7 g/dL (3.5-5.2) Globulin 4.5 g/dL Albumin/Globulin Ratio 0.8 (1.0-2.7) Lactic Acid Level 3.00 mmol/L (0.66-2.22) EKG Diagnostic Results Rate: tachycardiac Last Vital Signs Date Time Temp Pulse Resp B/P Pulse Ox O2 Delivery O2 Flow Rate FiO2 12/23/16 20:08 155 29 100 Mechanical Ventilator 40 Status: unchanged Disposition: XFER SHT-TRM HOSP Condition: Serious Jayce Ny Dec 23, 2016 20:20
[2016-12-23] MEDS ORDERED: MILK OF MA400 MG/51 ORAL (20:27)
[2016-12-23] MEDS ORDERED: VITAMIN C500 M1 ORAL (20:27)
[2016-12-23] MEDS ORDERED: ZINC30 MG GT (20:27)
[2016-12-23] MEDS ORDERED: MINIPRESS5 MG PO (20:27)
[2016-12-23] MEDS ORDERED: PROMOD946 ML PO (20:27)
[2016-12-23] MEDS ORDERED: VITAMIN C250 MG ORAL (20:27)
[2016-12-23] MEDS ORDERED: COLACE100 MG ORAL (20:27)
[2016-12-23] MEDS ORDERED: Acetaminophen 650 MG SUPP RECTAL ONE (20:30)
[2016-12-23] MEDS ORDERED: metroNIDAZOLE 500mg 100 ML IV SCH (20:30)
[2016-12-23 20:47] LABS: MEAN CORPUSCULAR HEMOGLOBIN 31.8 PG (27.0-31.0); MEAN CORPUSCULAR HGB CONC 33.5 G/DL (32.0-36.0); MEAN CORPUSCULAR VOLUME 95 FL (80-99); MEAN PLATELET VOLUME 6.9 FL (6.5-10.1); PLATELET COUNT 234 K/UL (150-450); RED CELL DISTRIBUTION WIDTH 14.2 % (11.6-14.8); WHITE BLOOD COUNT 11.7 K/UL (4.8-10.8)
[2016-12-23 20:48] LABS: BASOPHILS % (AUTO) 0.3 % (0.0-2.0); EOSINOPHILS % (AUTO) 0.3 % (0.0-3.0); MONOCYTES % (AUTO) 2.8 % (1.0-10.0); NEUTROPHILS % (AUTO) 91.6 % (45.0-75.0)
[2016-12-23 20:50] LABS: APPEARANCE,URINE SLIGHTLY CLOUDY; KETONES,URINE NEGATIVE (NEGATIVE); LEUKOCYTE ESTERASE ,URINE 3+ (NEGATIVE); NITRITE,URINE NEGATIVE (NEGATIVE); PH,URINE 8 (4.5-8.0); PROTEIN,URINE 3+ (NEGATIVE); UROBILINOGEN,URINE NORMAL MG/DL (0.0-1.0)
[2016-12-23 20:51] LABS: TROPONIN I < 0.30 ng/mL (<=0.30)
[2016-12-23 20:52] LABS: ALANINE AMINOTRANSFERASE 26 U/L (3-41); ALBUMIN/GLOBULIN RATIO 0.8 (1.0-2.7); ANION GAP 16 (5-15); ASPARTATE AMINO TRANSFERASE 28 U/L (5-40); CARBON DIOXIDE 23 mEQ/L (20-30); CHLORIDE 97 mEQ/L (98-107); CREATININE 0.9 mg/dL (0.7-1.2); GLOMERULAR FILTRATION RATE > 60 mL/min (>60); HEMOLYSIS 26; POTASSIUM 4.1 mEQ/L (3.4-4.9); SODIUM 136 mEQ/L (135-145); TOTAL PROTEIN 8.2 g/dL (6.6-8.7)
[2016-12-23 20:59] LABS: ABG PCO2 45.9 mmHg (35.0-45.0)
[2016-12-23 21:00] LABS: ABG ALLEN TEST POSITIVE
[2016-12-23] MEDS ORDERED: Cefepime HCl 1 GM in NS 55 ML IV SCH (21:00)
[2016-12-23 21:03] LABS: CKMB < 1.5 ng/mL (< 6.7)
[2016-12-23 21:05] LABS: RBC,URINE 15-20 /HPF (0 - 0); REFLEX LACTIC ACID YES OR NO YES
[2016-12-23 21:06] LABS: BACTERIA,URINE MODERATE /HPF; TRIPLE PHOSPHATE CRYSTAL,UR MODERATE /LPF; WBC,URINE 20-30 /HPF (0 - 0)
[2016-12-23] MEDS ORDERED: Cefepime 1gm vial ONE (21:53)
[2016-12-23] MEDS ORDERED: Levophed 4mg/4mL Inj IV ONE (21:53)
[2016-12-23 22:11] LABS: REFLEX LACTIC ACID YES OR NO YES
[2016-12-23] MEDS ORDERED: LORazepam Inj 2mg/ml 1ml IV PRN (23:15)
[2016-12-23] MEDS ORDERED: DuoNeb 0.5-3(2.5)mg/3ml neb HHN PRN (23:15)
[2016-12-23] MEDS ORDERED: Miralax 17gm pkt ORAL PRN (23:15)
[2016-12-23] MEDS ORDERED: Morphine Sulfate 4mg/ml Inj IVP PRN (23:15)
[2016-12-23] MEDS ORDERED: Ertapenem 1 GM in NS 55 ML IV SCH (23:45)
[2016-12-23] MEDS ORDERED: Vancomycin 1 GM in D5W 275 ML IV SCH (23:45)
[2016-12-24] VITALS (76 sets, daily range): BP systolic 72–155; BP diastolic 41–96
[2016-12-24] MEDS ORDERED: Ertapenem (INVanz) Inj ONE (01:26)
[2016-12-24] MEDS ORDERED: Amikacin 500mg/2mL Inj ONE (01:26)
[2016-12-24] MEDS ORDERED: Vancomycin 1gm inj IVPB ONE (01:27)
[2016-12-24] MEDS ORDERED: Levophed 4mg/4mL Inj IV ONE ×2 (02:02→06:54)
[2016-12-24] MEDS: Vancomycin 1.5 GM in D5W 325 ML IVPB SCH ×2 (02:20→13:30)
[2016-12-24] MEDS ORDERED: AMIKACIN IV SCH (04:00)
[2016-12-24] MEDS ORDERED: NS IV SCH (04:00)
[2016-12-24 05:23] LABS: MEAN CORPUSCULAR HEMOGLOBIN 32.5 PG (27.0-31.0); MEAN CORPUSCULAR HGB CONC 33.5 G/DL (32.0-36.0); MEAN CORPUSCULAR VOLUME 97 FL (80-99); MEAN PLATELET VOLUME 7.6 FL (6.5-10.1); PLATELET COUNT 211 K/UL (150-450); RED BLOOD COUNT 3.24 M/UL (4.70-6.10); RED CELL DISTRIBUTION WIDTH 14.6 % (11.6-14.8); WHITE BLOOD COUNT 13.7 K/UL (4.8-10.8)
[2016-12-24 05:56] LABS: ALANINE AMINOTRANSFERASE 21 U/L (3-41); ALBUMIN/GLOBULIN RATIO 0.7 (1.0-2.7); ANION GAP 19 (5-15); ASPARTATE AMINO TRANSFERASE 27 U/L (5-40); CARBON DIOXIDE 20 mEQ/L (20-30); CHLORIDE 102 mEQ/L (98-107); CREATININE 0.8 mg/dL (0.7-1.2); GLOMERULAR FILTRATION RATE > 60 mL/min (>60); HEMOLYSIS 0; POTASSIUM 3.7 mEQ/L (3.4-4.9); SODIUM 141 mEQ/L (135-145); TOTAL PROTEIN 6.8 g/dL (6.6-8.7)
[2016-12-24 05:57] LABS: REFLEX LACTIC ACID YES OR NO YES
[2016-12-24 06:41] LABS: BILIRUBIN,DIRECT 0.6 mg/dL (0.1-0.3)
[2016-12-24] MEDS: Pantoprazole Inj IVP SCH (08:26)
[2016-12-24] MEDS: Heparin 5000 units/ml inj SUBQ SCH ×2 (08:28→20:42)
[2016-12-24 09:13] LABS: ANISOCYTOSIS 1+; BAND NEUTROPHILS % (MANUAL) 18 % (0-8); BASOPHILS % (MANUAL) 0 % (0-2); EOSINOPHILS % (MANUAL) 0 % (0-3); LYMPHOCYTES % (MANUAL) 11 % (20-45); NEUTROPHILS % (MANUAL) 69 % (45-75); PLATELET ESTIMATE ADEQUATE; PLATELET MORPHOLOGY NORMAL; TOTAL CELLS COUNTED 100
--- NOTE | 2016-12-24 09:16 | Diagnostic Imaging Report ---
Indications: Shortness of breath Technique: Portable AP chest Findings: Comparison: 12/11/16 Lower lobe consolidation, medial right lung base bronchovascular prominence unchanged. Superimposed curvilinear density right lung base resolved. No new pulmonary parenchymal or pleural abnormalities are demonstrated. Cardiac mediastinal silhouette stable. IMPRESSION: Persistent left lower lobe atelectasis versus pneumonia Persistent right lower lobe bronchovascular crowding Resolution of right lower lobe subsegmental atelectasis
--- NOTE | 2016-12-24 09:23 | Diagnostic Imaging Report ---
Indications: Shortness of breath ; central venous catheter placement attempt, during which guidewire broke Technique: Portable AP chest at 2145 Findings: Comparison: 2042 No foreign body, pneumothorax, apical pleural cap, or new mediastinal widening. Remainder of exam unchanged. IMPRESSION: No evidence of acute complication following central venous catheter placement attempt
[2016-12-24 09:27] LABS: ABG BASE EXCESS -7.9; ABG PCO2 56.8 mmHg (35.0-45.0)
[2016-12-24 09:28] LABS: ABG ALLEN TEST POSITIVE
--- NOTE | 2016-12-24 10:17 | Diagnostic Imaging Report ---
Indications: DYSPNEA Technique: Portable AP chest Findings: Comparison: 72,017 Left lung base consolidative opacity unchanged. Right lung base bronchovascular crowding decreased. Left costophrenic angle excluded from image; right remain sharp. Cardiac mediastinal silhouette stable. No new abnormality identified. IMPRESSION: Decrease in compressive changes right lung base Stable left lower lobe atelectasis versus pneumonia
--- NOTE | 2016-12-24 10:56 | History and Physical ---
History of Present Illness General Date patient seen: Dec 24, 2016 Reason for Hospitalization: Fever Present Illness HPI 66-year-old male with chronic respiratory failure, s/p vent/trach/PEG vegetative state, brought in by ambulance after increased fever as well as tachycardia. The patient had noted to have increased heart rate greater than 150. The patient was noted to be febrile as facility. He was noted to have prior history of seizure disorder Allergies: Coded Allergies: No Known Allergies (Unverified , 12/13/16) Medication History Scheduled Ascorbic Acid* (Vitamin C*), 250 MG ORAL DAILY, (Reported) Ascorbic Acid* (Vitamin C*), 500 MG ORAL DAILY, (Reported) Docusate Sodium* (Colace*), 100 MG ORAL DAILY, (Reported) Levetiracetam (Keppra), 1,000 MG ORAL DAILY, (Reported) Levothyroxine Sodium* (Levothyroxine Sodium*), 150 MCG ORAL DAILY, (Reported) Magnesium Hydroxide* (Milk Of Magnesia*), 30 ML ORAL DAILY, (Reported) Prazosin Hcl* (Minipress*), 4 MG PO BEDTIME, (Reported) Zinc Gluconate (Zinc), 220 MG GT BID, (Reported) Scheduled PRN Acetaminophen* (Acetaminophen*), 640 MG ORAL Q4H PRN for Mild Pain/Temp > 100.5, (Reported) Miscellaneous Medications Captopril (Captopril), 12.5 MG GT, (Reported) Protein Supplement (Promod), 946 ML PO, (Reported) Discontinued Medications Famotidine (Famotidine), 20 MG ORAL DAILY, (Reported) Discontinued Reason: Therapy completed Insulin Regular, Human (Humulin R), 0 SUBQ, (Reported) Discontinued Reason: Therapy completed Phenytoin Sodium Extended* (Dilantin*), 300 MG ORAL BEDTIME, (Reported) Discontinued Reason: Therapy completed Prazosin Hcl* (Minipress*), 4 MG PO, (Reported) Discontinued Reason: Therapy completed Protein Supplement (Promod), 946 ML PO, (Reported) Discontinued Reason: Therapy completed Patient History Healthcare decision maker lexii Vines Resuscitation status Full Code Advanced Directive on File Yes Past Medical/Surgical History Past Medical/Surgical History: (1) Ventilator dependence (2) Feeding by G-tube (3) Tracheostomy in place (4) Vegetative state Review of Systems All Other Systems: negative except mentioned in HPI Physical Exam General Appearance: WD/WN Lines, tubes and drains: peripheral HEENT: normocephalic, atraumatic Neck: non-tender, normal alignment Respiratory/Chest: chest wall non-tender, lungs clear Cardiovascular/Chest: normal peripheral pulses, normal rate, no JVD Abdomen: normal bowel sounds Genitourinary/Rectal: normal genital exam, normal rectal exam Extremities: normal range of motion, non-tender Skin Exam: normal pigmentation Neurologic: housekeeper cleaning cooking 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 Last 24 Hour Vital Signs Date Time Temp Pulse Resp B/P Pulse Ox O2 Delivery O2 Flow Rate FiO2 12/24/16 10:15 96 16 96/58 100 Mechanical Ventilator 40 12/24/16 10:00 96 16 94/60 100 Mechanical Ventilator 40 12/24/16 10:00 94/60 12/24/16 09:30 105 19 125/59 100 Mechanical Ventilator 40 12/24/16 09:23 98 16 100 Mechanical Ventilator 40 12/24/16 09:15 118 19 147/62 100 Mechanical Ventilator 40 12/24/16 09:13 109 22 40 12/24/16 09:13 40 12/24/16 09:13 109 22 100 Mechanical Ventilator 40 12/24/16 09:00 120 18 147/62 100 Mechanical Ventilator 40 12/24/16 09:00 147/62 12/24/16 08:45 113 18 155/69 100 Mechanical Ventilator 40 12/24/16 08:30 102 16 113/79 100 Mechanical Ventilator 40 12/24/16 08:15 104 17 96/68 100 Mechanical Ventilator 40 12/24/16 08:00 99.5 107 18 124/71 100 Mechanical Ventilator 40 12/24/16 08:00 107 12/24/16 08:00 40 12/24/16 08:00 155/69 12/24/16 07:45 101 17 122/55 98 Mechanical Ventilator 40 12/24/16 07:30 107 19 110/69 100 Mechanical Ventilator 40 12/24/16 07:15 100 16 90/56 99 Mechanical Ventilator 40 12/24/16 07:00 110/69 12/24/16 07:00 114 17 87/55 98 Mechanical Ventilator 40 12/24/16 06:59 98 16 40 12/24/16 06:45 116 17 93/58 98 Mechanical Ventilator 40 12/24/16 06:30 116 22 103/60 98 Mechanical Ventilator 40 7/3/17 06:15 113 17 126/76 98 Mechanical Ventilator 40 7/17 06:15 126/76 7 06:00 115 23 108/59 97 Mechanical Ventilator 40 12/24/16 05:45 118 23 128/68 97 Mechanical Ventilator 40 17 05:45 128/68 717 05:30 113 24 128/82 99 Mechanical Ventilator 40 12/24/16 05:15 113/63 7 05:15 114 21 113/63 99 Mechanical Ventilator 40 12/24/16 04:56 108 16 40 7// 04:45 109 20 114/67 99 Mechanical Ventilator 40 12/24/16 04:30 107/68 12/24/16 04:30 108 16 107/68 100 Mechanical Ventilator 40 12/24/16 04:15 87/59 12/24/16 04:15 110 16 87/59 100 Mechanical Ventilator 40 12/24/16 04:00 40 12/24/16 04:00 97.7 112 17 89/61 100 Mechanical Ventilator 40 12/24/16 04:00 110 12/24/16 04:00 89/61 12/24/16 03:36 114 18 40 7 03:30 113 16 91/57 100 Mechanical Ventilator 40 12/24/16 03:23 115 21 40 12/24/16 03:15 115 24 95/62 98 Mechanical Ventilator 40 12/24/16 03:00 116 21 89/56 98 Mechanical Ventilator 40 12/24/16 03:00 89/56 12/24/16 02:45 116 21 94/65 100 Mechanical Ventilator 40 12/24/16 02:30 116 24 94/63 100 Mechanical Ventilator 40 17 02:15 118 24 93/58 100 Mechanical Ventilator 40 7/3/17 02:14 85/48 7 02:00 121 23 93/58 99 Mechanical Ventilator 40 7/09/07 01:45 123 22 72/48 98 Mechanical Ventilator 40 7/3/17 01:30 128 25 85/43 97 Mechanical Ventilator 40 7/3/17 01:18 134 27 40 7/3/17 01:00 97.7 7/09/07 01:00 98.5 134 24 140/96 99 Mechanical Ventilator 40 12/24/16 00:44 144 30 110/54 98 Mechanical Ventilator 40 12/24/16 00:30 144 29 110/54 97 Mechanical Ventilator 40 12/24/16 00:00 102.5 137 31 91/41 98 Mechanical Ventilator 40 12/23/16 23:30 143 31 91/44 98 Mechanical Ventilator 40 12/23/16 23:00 143 30 94/49 97 Mechanical Ventilator 40 12/23/16 22:53 142 28 40 12/23/16 22:40 144 30 86/59 Mechanical Ventilator 40 12/23/16 22:10 152 36 104/62 Mechanical Ventilator 40 12/23/16 22:00 160 37 114/63 Mechanical Ventilator 40 12/23/16 21:50 160 37 86/61 Mechanical Ventilator 40 12/23/16 21:30 103.1 163 37 76/58 Mechanical Ventilator 40 12/23/16 21:03 167 38 40 12/23/16 21:00 170 35 136/103 Mechanical Ventilator 40 12/23/16 20:30 161 39 134/68 Mechanical Ventilator 40 12/23/16 20:25 158 35 130/70 Mechanical Ventilator 40 12/23/16 20:20 155 35 40 12/23/16 20:08 155 29 100 Mechanical Ventilator 40 Intake and Output 12/23/16 12/24/16 19:00 07:00 Intake Total 3479.6 ml Output Total 650 ml Balance 2829.6 ml Intake Oral 0 ml IV Total 3479.6 ml Output Urine Total 650 ml # Bowel Movements 1 Laboratory Tests Test 12/23/16 20:20 12/23/16 21:34 12/24/16 04:00 12/24/16 09:13 White Blood Count 11.7 K/UL (4.8-10.8) H 13.7 K/UL (4.8-10.8) H Red Blood Count 3.80 M/UL (4.70-6.10) L 3.24 M/UL (4.70-6.10) L Hemoglobin 12.1 G/DL (14.2-18.0) L 10.5 G/DL (14.2-18.0) L Hematocrit 36.1 % (42.0-52.0) L 31.4 % (42.0-52.0) L Mean Corpuscular Volume 95 FL (80-99) 97 FL (80-99) Mean Corpuscular Hemoglobin 31.8 PG (27.0-31.0) H 32.5 PG (27.0-31.0) H Mean Corpuscular Hemoglobin Concent 33.5 G/DL (32.0-36.0) 33.5 G/DL (32.0-36.0) Red Cell Distribution Width 14.2 % (11.6-14.8) 14.6 % (11.6-14.8) Platelet Count 234 K/UL (150-450) 211 K/UL (150-450) Mean Platelet Volume 6.9 FL (6.5-10.1) 7.6 FL (6.5-10.1) Neutrophils (%) (Auto) 91.6 % (45.0-75.0) H % (45.0-75.0) Lymphocytes (%) (Auto) 5.0 % (20.0-45.0) L % (20.0-45.0) Monocytes (%) (Auto) 2.8 % (1.0-10.0) % (1.0-10.0) Eosinophils (%) (Auto) 0.3 % (0.0-3.0) % (0.0-3.0) Basophils (%) (Auto) 0.3 % (0.0-2.0) % (0.0-2.0) Urine Color Yellow Urine Appearance Slightly cloudy Urine pH 8 (4.5-8.0) Urine Specific Murray 1.010 (1.005-1.035) Urine Protein 3+ (NEGATIVE) H Urine Glucose (UA) Negative (NEGATIVE) Urine Ketones Negative (NEGATIVE) Urine Occult Blood 5+ (NEGATIVE) H Urine Nitrite Negative (NEGATIVE) Urine Bilirubin Negative (NEGATIVE) Urine Urobilinogen Normal MG/DL (0.0-1.0) Urine Leukocyte Esterase 3+ (NEGATIVE) H Urine RBC 15-20 /HPF (0 - 0) H Urine WBC 20-30 /HPF (0 - 0) H Urine Squamous Epithelial Cells None /LPF (NONE/OCC) Urine Triple Phosphate Crystals Moderate /LPF (NONE) H Urine Bacteria Moderate /HPF (NONE) H Arterial Blood pH 7.291 (7.350-7.450) 7.181 (7.350-7.450) Arterial Blood Partial Pressure CO2 45.9 mmHg (35.0-45.0) H 56.8 mmHg (35.0-45.0) *H Arterial Blood Partial Pressure O2 157.3 mmHg (75.0-100.0) H 185.6 mmHg (75.0-100.0) H Arterial Blood HCO3 21.6 mmol/L (22.0-26.0) L 20.8 mmol/L (22.0-26.0) L Arterial Blood Oxygen Saturation 98.7 % (92.0-98.0) H 98.8 % (92.0-98.0) H Arterial Blood Base Excess -5.0 -7.9 Karson Test Positive Positive Sodium Level 136 mEQ/L (135-145) 141 mEQ/L (135-145) Potassium Level 4.1 mEQ/L (3.4-4.9) 3.7 mEQ/L (3.4-4.9) Chloride Level 97 mEQ/L (98-107) L 102 mEQ/L (98-107) Carbon Dioxide Level 23 mEQ/L (20-30) 20 mEQ/L (20-30) Anion Gap 16 (5-15) H 19 (5-15) H Blood Urea Nitrogen 23 mg/dL (7-23) 24 mg/dL (7-23) H Creatinine 0.9 mg/dL (0.7-1.2) 0.8 mg/dL (0.7-1.2) Estimat Glomerular Filtration Rate > 60 mL/min (>60) > 60 mL/min (>60) Glucose Level 165 mg/dL (74-106) H 175 mg/dL (74-106) H Lactic Acid Level 2.40 mmol/L (0.66-2.22) H 3.00 mmol/L (0.66-2.22) H 2.20 mmol/L (0.66-2.22) Calcium Level 9.0 mg/dL (8.6-10.2) 8.0 mg/dL (8.6-10.2) L Total Bilirubin 0.6 mg/dL (0.0-1.2) 0.8 mg/dL (0.0-1.2) Aspartate Amino Transf (AST/SGOT) 28 U/L (5-40) 27 U/L (5-40) Alanine Aminotransferase (ALT/SGPT) 26 U/L (3-41) 21 U/L (3-41) Alkaline Phosphatase 107 U/L (40-129) 95 U/L (40-129) Total Creatine Kinase 67 U/L (38-174) Creatine Kinase MB < 1.5 ng/mL (< 6.7) Creatine Kinase MB Relative Index 2.2 Troponin I < 0.30 ng/mL (<=0.30) Pro-B-Type Natriuretic Peptide 420 pg/mL (0-125) H Total Protein 8.2 g/dL (6.6-8.7) 6.8 g/dL (6.6-8.7) Albumin 3.7 g/dL (3.5-5.2) 2.9 g/dL (3.5-5.2) L Globulin 4.5 g/dL 3.9 g/dL Albumin/Globulin Ratio 0.8 (1.0-2.7) L 0.7 (1.0-2.7) L Differential Total Cells Counted 100 Neutrophils % (Manual) 69 % (45-75) Lymphocytes % (Manual) 11 % (20-45) L Monocytes % (Manual) 2 % (1-10) Eosinophils % (Manual) 0 % (0-3) Basophils % (Manual) 0 % (0-2) Band Neutrophils 18 % (0-8) H Platelet Estimate Adequate Platelet Morphology Normal Anisocytosis 1+ Direct Bilirubin 0.6 mg/dL (0.1-0.3) H Test 12/24/16 10:00 Lactic Acid Level 1.90 mmol/L (0.66-2.22) Microbiology Date/Time Source Procedure Growth Status 12/23/16 20:20 Urine,Clean Catch Urine Culture - Preliminary Resulted Height (Feet): 5 Height (Inches): 9.00 Weight (Pounds): 172 Medications Current Medications Medications (Trade) Dose Ordered Sig/Dolly Route PRN Reason Start Time Stop Time Status Last Admin Dose Admin Acetaminophen (Tylenol) 650 mg Q4H PRN ORAL fever 12/23/16 23:15 01/22/17 23:14 Albuterol/ Ipratropium 3 ml 3 ml EVERY 4 HOURS PRN HHN Shortness of Breath 12/23/16 23:15 12/28/16 23:14 12/24/16 09:15 Amikacin Sulfate/ Sodium Chloride (Amikin/Sodium Chloride) 114.6 ml @ 114.6 mls/ hr Q24H IV 12/24/16 04:00 12/31/16 03:59 12/24/16 03:33 Ertapenem 1 gm/ Sodium Chloride 55 ml @ 110 mls/hr Q24H IV 12/23/16 23:45 12/28/16 23:44 12/24/16 02:06 Heparin Sodium (Porcine) (Heparin 5000 units/ml) 5,000 units EVERY 12 HOURS SUBQ 12/24/16 09:00 01/23/17 08:59 12/24/16 08:28 Levetiracetam (Keppra) 1,000 mg DAILY ORAL 12/24/16 09:00 01/23/17 08:59 12/24/16 08:26 Levothyroxine Sodium 150 mcg 150 mcg DAILY@0630 ORAL 12/24/16 06:30 01/23/17 06:29 12/24/16 07:53 Lorazepam 2 mg 2 mg EVERY 2 HOURS PRN IV For Anxiety 12/23/16 23:15 12/30/16 23:14 Morphine Sulfate (Morphine Sulfate) 4 mg EVERY 4 HOURS PRN IVP Severe Pain (Pain Scale 7-10) 12/23/16 23:15 12/30/16 23:14 Norepinephrine Bitartrate/ Dextrose (Levophed/D5W) 254 ml @ 0 mls/hr Q24H IV 12/23/16 23:15 01/22/17 23:14 12/24/16 02:14 Ondansetron HCl (Zofran) 4 mg Q6H PRN IVP Nausea & Vomiting 12/23/16 23:15 01/22/17 23:14 Pantoprazole 40 mg 40 mg DAILY IVP 12/24/16 09:00 01/23/17 08:59 12/24/16 08:26 Polyethylene Glycol (Miralax) 17 gm DAILYPRN PRN ORAL Constipation 12/23/16 23:15 01/22/17 23:14 Sodium Chloride (Sodium Chloride 1000ml bag) 1,000 ml @ 100 mls/hr Q10H IVLG 12/23/16 23:39 01/22/17 23:38 12/24/16 09:57 Vancomycin HCl (Vanco rx to dose) 1 ea DAILY PRN MISC PROTOCHOL 12/23/16 23:45 01/22/17 23:44 Vancomycin HCl/ Dextrose (Vancomycin/D5W) 325 ml @ 162.5 mls/ hr Q12H IVPB 12/24/16 02:00 12/29/16 01:59 12/24/16 02:20 Assessment/Plan Problem List: (1) Septic shock ICD Codes: A41.9 - Sepsis, unspecified organism; R65.21 - Severe sepsis with septic shock SNOMED: 42670501 (2) Seizure disorder as sequela of cerebrovascular accident ICD Codes: I69.398 - Other sequelae of cerebral infarction; G40.909 - Epilepsy , unspecified, not intractable, without status epilepticus SNOMED: 115983035020331 (3) Ventilator dependence ICD Codes: Z99.11 - Dependence on respirator [ventilator] status; R65.21 - Severe sepsis with septic shock SNOMED: 560248379 (4) Vegetative state ICD Codes: R40.3 - Persistent vegetative state SNOMED: 62593849, 079446586 (5) Feeding by G-tube ICD Codes: Z93.1 - Gastrostomy status SNOMED: 248389412, 579409584 Respiratory: adjust tidal volume, monitor respiratory rate, adjust FIO2 Cardiac: continue to monitor HR/BP Renal: F/U I&O, keep IV fluid, check electrolytes Infectious Disease: check cultures Gastrointestinal: continue feedings/current rate Endocrine: monitor blood sugar, check TSH Neurologic: PRN Ativan, PRN Morphine Time Spent (Minutes): 40 Discussed with: nurses, consultants, case loader operator REY YAN Dec 24, 2016 10:56
--- NOTE | 2016-12-24 12:28 | Consultation ---
Consult Note Consult Note asked to eval for oliguria Has condom cath, munguia could not be inserted On pressors Patient is a 66-year-old male brought in by ambulance after increased fever as well as tachycardia. Patient had been noted to be vent dependent. The patient had noted to have increased heart rate greater than 150. The patient was noted to be febrile as facility. He was noted to have prior history of seizure disorder- Examined- Data reviewed Assessment/Plan status: (1) Septic shock , low BP being on pressor leading to Oliguria and renal failure (2) Seizure disorder as sequela of cerebrovascular accident (3) Ventilator dependence (4) Vegetative state (5) Feeding by G-tube Plan: Antibiotics- Vent support- Monitor renal parameters and urine out put Avoid nephrotoxics discussed with LANI NIETO Dec 24, 2016 12:28
[2016-12-24] MEDS ORDERED: D5W 275ml ONE (15:42)
[2016-12-24] MEDS ORDERED: Tubing IV Secondary IV ONE (15:42)
[2016-12-24] MEDS ORDERED: NS 275ml ONE ×2 (15:42→15:43)
--- NOTE | 2016-12-24 21:09 | Consultation ---
Consult Note Consult Note ID DIC # [id number] KENDRICK RAMIRES M.D. Dec 24, 2016 21:09
--- NOTE | 2016-12-24 22:15 | Consultation ---
DATE OF CONSULTATION: INFECTIOUS DISEASES CONSULTATION CONSULTING PHYSICIAN: Wyatt Suh M.D. REQUESTING PHYSICIAN: Lea Nicolas M.D. REASON FOR CONSULTATION: Evaluation of the patient for sepsis, septic shock, antibiotic management. HISTORY OF PRESENT ILLNESS: The patient is a 66-year-old male with multiple medical problems listed below who was brought to the hospital due to fever, tachypnea, and tachycardia. The patient was found to be hypotensive. The patient has been admitted to the ICU. The patient has been started on broad-spectrum antibiotics. Infectious Disease consultation has been requested for further evaluation of the the patient and antibiotic management. PAST MEDICAL HISTORY: 1. Seizure disorder. 2. Anoxic brain injury. 3. Cerebrovascular accident. 4. Anemia. 5. Hyperlipidemia. 6. Hypothyroidism. 7. Chronic kidney disease. 8. Status post trach and PEG. 9. History of ventilator-dependent respiratory failure. 10. Gastroesophageal reflux disease. 11. Diabetes. MEDICATIONS: 1. Amikacin. 2. Vancomycin. 3. Ertapenem. SOCIAL HISTORY: The patient lives in skilled nursing. FAMILY HISTORY: Unavailable. REVIEW OF SYSTEMS: Unobtainable. PHYSICAL EXAMINATION: VITAL SIGNS: Temperature 99.7, pulse 86, respiratory rate 18, blood pressure 105/63. HEENT: Mild pale conjunctivae. NECK: No lymphadenopathy. Trach in place. CHEST: Coarse breathing sounds. HEART: S1 and S2. ABDOMEN: Soft. Obese. PEG tube in place. EXTREMITIES: Contracted. NEUROLOGIC: Nonverbal. LABORATORY AND DIAGNOSTIC DATA: White blood cell 13, hemoglobin 10, and platelets 211,000. UA, 20-30 white blood cells. BUN 24, creatinine 0.8. ALT, AST, alkaline phosphatase unremarkable. Wound culture is pending. Urine culture is pending. Chest x-ray shows left lower lobe atelectasis versus pneumonia. Stage 2 sacral decubitus. ASSESSMENT: The patient is a 66-year-old male as mentioned above who has: 1. Sepsis/septic shock. 2. Leukocytosis. 3. . 4. Probable urinary tract infection/pyuria. 5. Probable pneumonia. PLAN: 1. We will continue the patient on IV amikacin, vancomycin, and ertapenem. 2. Monitor CBC. 3. Monitor BMP. 4. Monitor cultures (wound, blood, sputum, urine). 5. Continue the patient on respiratory support. 6. Continue pressors per protocol. 7. Monitor chest x-ray. 8. Based on the patient's clinical course and labs, we will do further recommendation. Thank you, Dr. Nicolas, for allowing me to participate in the care of this patient. I will follow the patient with you during this hospitalization. Wyatt Suh M.D. DR: Phong JOB#: [id number] CC:
[2016-12-25] VITALS (16 sets, daily range): BP systolic 98–154; BP diastolic 55–87
[2016-12-25] MEDS: Vancomycin 1.5 GM in D5W 325 ML IVPB SCH (02:22)
[2016-12-25 05:45] LABS: MEAN CORPUSCULAR HEMOGLOBIN 32.6 PG (27.0-31.0); MEAN CORPUSCULAR HGB CONC 33.7 G/DL (32.0-36.0); MEAN CORPUSCULAR VOLUME 97 FL (80-99); MEAN PLATELET VOLUME 7.8 FL (6.5-10.1); PLATELET COUNT 173 K/UL (150-450); RED BLOOD COUNT 2.87 M/UL (4.70-6.10); RED CELL DISTRIBUTION WIDTH 14.2 % (11.6-14.8); WHITE BLOOD COUNT 14.2 K/UL (4.8-10.8)
[2016-12-25 05:56] LABS: INR 1.2 (0.9-1.1); PROTHROMBIN TIME 12.1 SEC (9.30-11.50)
[2016-12-25 06:09] LABS: ALANINE AMINOTRANSFERASE 27 U/L (3-41); ALBUMIN/GLOBULIN RATIO 0.6 (1.0-2.7); ANION GAP 16 (5-15); ASPARTATE AMINO TRANSFERASE 43 U/L (5-40); CALCIUM 7.9 mg/dL (8.6-10.2); CARBON DIOXIDE 21 mEQ/L (20-30); CHLORIDE 105 mEQ/L (98-107); CREATININE 0.6 mg/dL (0.7-1.2); GLOMERULAR FILTRATION RATE > 60 mL/min (>60); HEMOLYSIS 0; MAGNESIUM 1.8 mg/dL (1.7-2.5); PHOSPHORUS 1.8 mg/dL (2.5-4.8); POTASSIUM 3.7 mEQ/L (3.4-4.9); SODIUM 142 mEQ/L (135-145); TOTAL PROTEIN 6.5 g/dL (6.6-8.7)
[2016-12-25 06:30] LABS: CRP QUANT 25.4 mg/dL (< 0.5); URIC ACID 5.9 mg/dL (3.0-7.5)
[2016-12-25 06:42] LABS: THYROID STIMULATING HORMONE 2.84 uIU/mL (0.300-4.500)
[2016-12-25 08:15] LABS: ANISOCYTOSIS 1+; BAND NEUTROPHILS % (MANUAL) 0 % (0-8); BASOPHILS % (MANUAL) 0 % (0-2); EOSINOPHILS % (MANUAL) 1 % (0-3); LYMPHOCYTES % (MANUAL) 10 % (20-45); NEUTROPHILS % (MANUAL) 83 % (45-75); PLATELET ESTIMATE ADEQUATE; PLATELET MORPHOLOGY NORMAL; TOTAL CELLS COUNTED 100
--- NOTE | 2016-12-25 08:20 | Pulmonolgy Critical Care Note ---
Critical Care - Asmt/Plan Problems: (1) Septic shock (2) Vegetative state (3) Chronic respiratory failure (4) Seizure disorder (5) Feeding by G-tube (6) Severe anoxic-ischemic encephalopathy Respiratory: monitor respiratory rate, adjust FIO2 Cardiac: continue to monitor HR/BP Renal: F/U I&O, keep IV fluid, check electrolytes Infectious Disease: check cultures, continue antibiotics Gastrointestinal: continue feedings/current rate Endocrine: monitor blood sugar, check HgA1C, d/c insulin drip, start insulin drip, continue sliding scale insulin Hematologic: monitor H/H Affect: PRN ativan Prophylaxis: Protonix, Heparin Notes 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 Discussed with: nurses, consultants, housing case managerfield training manager - Objective Last 24 Hour Vital Signs Date Time Temp Pulse Resp B/P Pulse Ox O2 Delivery O2 Flow Rate FiO2 12/25/16 08:00 98.4 94 18 127/79 100 Mechanical Ventilator 40 12/25/16 08:00 40 12/25/16 07:06 97 18 40 12/25/16 07:00 97.7 100 19 98/55 100 Mechanical Ventilator 40 12/25/16 06:52 97.7 12/25/16 06:00 98.8 88 18 106/62 100 Mechanical Ventilator 40 12/25/16 05:00 102 18 106/65 100 Mechanical Ventilator 40 12/25/16 04:55 99 18 40 12/25/16 04:00 40 12/25/16 04:00 88 12/25/16 04:00 97.8 98 18 102/55 100 Mechanical Ventilator 40 12/25/16 03:08 105 20 40 12/25/16 03:00 103 20 119/69 100 Mechanical Ventilator 40 12/25/16 02:00 102 20 115/63 100 Mechanical Ventilator 40 12/25/16 01:00 102 19 40 12/25/16 01:00 100 19 109/62 100 Mechanical Ventilator 40 12/25/16 00:30 106 23 112/56 100 Mechanical Ventilator 40 12/25/16 00:00 97.8 107 24 119/64 99 Mechanical Ventilator 40 12/25/16 00:00 107 12/25/16 00:00 40 12/24/16 23:30 104 22 133/62 100 Mechanical Ventilator 40 12/24/16 23:15 101 21 40 12/24/16 23:00 101 21 131/61 100 Mechanical Ventilator 40 7/3/17 22:30 104 20 95/61 100 Mechanical Ventilator 40 7/3/17 22:00 98 18 110/56 100 Mechanical Ventilator 40 7/3/17 21:30 96 18 100/57 100 Mechanical Ventilator 40 7/3/17 21:29 97 18 40 7/3/17 21:15 96 18 96/60 100 Mechanical Ventilator 40 7/3/17 21:00 93/48 7/3/17 21:00 92 18 93/48 100 Mechanical Ventilator 40 7/3/17 20:45 93 18 96/58 100 Mechanical Ventilator 40 7/3/17 20:30 94 18 101/59 100 Mechanical Ventilator 40 7/3/17 20:15 94 18 106/61 100 Mechanical Ventilator 40 7/3/17 20:00 40 7/3/17 20:00 96 7/3/17 20:00 111/63 7/3/17 20:00 98.0 93 18 111/63 100 Mechanical Ventilator 40 7/3/17 19:45 94 18 105/59 100 Mechanical Ventilator 40 7/3/17 19:30 93 18 108/61 100 Mechanical Ventilator 40 7/3/17 19:30 93 17 40 7/3/17 19:15 92 18 101/65 100 Mechanical Ventilator 40 7/3/17 19:00 90 18 105/55 100 Mechanical Ventilator 40 7/3/17 18:53 105/63 7/3/17 18:45 92 18 105/63 100 Mechanical Ventilator 40 7/3/17 18:30 91 18 99/57 100 Mechanical Ventilator 40 7/3/17 18:00 89 18 95/50 100 Mechanical Ventilator 40 7/3/17 18:00 99/63 7/3/17 17:30 94 18 94/60 100 Mechanical Ventilator 40 7/3/17 17:00 99.0 94 18 98/57 100 Mechanical Ventilator 40 7/3/17 17:00 94/64 7/3/17 17:00 91 17 94/64 100 Mechanical Ventilator 40 7/3/17 16:46 91 16 40 7/3/17 16:30 99.7 95 17 89/61 100 Mechanical Ventilator 40 7/3/17 16:00 97 7/3/17 16:00 100.0 98 18 93/60 100 Mechanical Ventilator 40 7/3/17 16:00 93/60 7/3/17 16:00 40 7/3/17 15:45 97 17 97/65 100 Mechanical Ventilator 40 7/3/17 15:30 97 18 101/61 100 Mechanical Ventilator 40 7/3/17 15:15 97 18 104/61 100 Mechanical Ventilator 40 7/3/17 15:00 97 18 104/61 100 Mechanical Ventilator 40 7/3/17 15:00 104/61 7/3/17 14:58 99 18 40 7/3/17 14:45 97 18 109/68 100 Mechanical Ventilator 40 7/3/17 14:30 97 18 100/63 100 Mechanical Ventilator 40 7/3/17 14:15 97 18 99/62 100 Mechanical Ventilator 40 7/3/17 14:00 99/63 7/3/17 14:00 99 18 99/63 100 Mechanical Ventilator 40 7/3/17 13:30 99.5 99 18 86/60 100 Mechanical Ventilator 40 7/3/17 13:01 104 20 40 7/3/17 13:00 102 16 91/61 100 Mechanical Ventilator 40 7/3/17 13:00 91/61 7/3/17 12:30 101 16 98/65 100 Mechanical Ventilator 40 7/3/17 12:15 100 16 101/67 100 Mechanical Ventilator 40 7/3/17 12:00 40 7/3/17 12:00 101/67 7/3/17 12:00 100 7/3/17 12:00 99.9 102 16 100/68 100 Mechanical Ventilator 40 7/3/17 11:30 96 16 87/58 100 Mechanical Ventilator 40 7/3/17 11:15 94 16 83/54 100 Mechanical Ventilator 40 7/3/17 11:01 98 18 40 7/3/17 11:00 97 16 102/69 100 Mechanical Ventilator 40 7/3/17 11:00 102/69 7/3/17 10:45 95 16 92/63 100 Mechanical Ventilator 40 7/3/17 10:30 95 16 92/63 100 Mechanical Ventilator 40 7/3/17 10:15 96 16 96/58 100 Mechanical Ventilator 40 7/3/17 10:00 96 16 94/60 100 Mechanical Ventilator 40 7/3/17 10:00 94/60 7/3/17 09:30 105 19 125/59 100 Mechanical Ventilator 40 7/3/17 09:23 98 16 100 Mechanical Ventilator 40 7/3/17 09:15 118 19 147/62 100 Mechanical Ventilator 40 12/24/16 09:13 109 22 40 12/24/16 09:13 40 12/24/16 09:13 109 22 100 Mechanical Ventilator 40 12/24/16 09:00 120 18 147/62 100 Mechanical Ventilator 40 12/24/16 09:00 147/62 12/24/16 08:45 113 18 155/69 100 Mechanical Ventilator 40 12/24/16 08:30 102 16 113/79 100 Mechanical Ventilator 40 Status: awake Condition: critical HEENT: atraumatic Neck: full ROM Lungs: clear Heart: HR/BP stable Abdomen: soft, non-tender Extremities: no C/C/E, edema Decubiti: location Micro: Microbiology Date/Time Source Procedure Growth Status 12/23/16 20:29 Blood Blood Culture - Preliminary NO GROWTH AFTER 24 HOURS Resulted 12/23/16 20:20 Blood Blood Culture - Preliminary NO GROWTH AFTER 24 HOURS Resulted 12/24/16 06:00 Sputum Induced Gram Stain Pending Resulted 12/24/16 06:00 Sputum Culture - Preliminary Gram Negative Bacillus 1 Resulted 12/23/16 20:20 Urine,Clean Catch Urine Culture - Preliminary Gram Negative Bacillus 1 Resulted 12/24/16 01:00 Sacral Wound Gram Stain - Final Resulted 12/24/16 01:00 Sacral Wound Wound Culture Pending Resulted Accucheck: 168 Critical Care - Subjective ROS Limited/Unobtainable: Yes ICU Day: 2 Intubation Day: chronic trach FI02: 40 Vent Support Breath Rate: 16 Vent Support Mode: AC Vent Tidal Volume: 600 Sputum Amount: Small PEEP: 5.0 PIP: 49 Fluids: NS 100 cc/hour I&O: Intake and Output 12/24/16 12/25/16 19:00 07:00 Intake Total 1479.79 ml 1267.62 ml Output Total 265 ml 700 ml Balance 1214.79 ml 567.62 ml IV Total 1399.79 ml 1207.62 ml Other 80 ml 60 ml Output Urine Total 265 ml 700 ml CXR: no change Labs: Laboratory Tests Test 12/24/16 09:13 12/24/16 10:00 12/24/16 16:00 12/25/16 04:00 Arterial Blood pH 7.181 (7.350-7.450) Arterial Blood Partial Pressure CO2 56.8 mmHg (35.0-45.0) *H Arterial Blood Partial Pressure O2 185.6 mmHg (75.0-100.0) H Arterial Blood HCO3 20.8 mmol/L (22.0-26.0) L Arterial Blood Oxygen Saturation 98.8 % (92.0-98.0) H Arterial Blood Base Excess -7.9 Karson Test Positive Lactic Acid Level 1.90 mmol/L (0.66-2.22) Amikacin Level Trough 11.6 ug/mL (10.0-15.0) White Blood Count 14.2 K/UL (4.8-10.8) H Red Blood Count 2.87 M/UL (4.70-6.10) L Hemoglobin 9.4 G/DL (14.2-18.0) L Hematocrit 27.8 % (42.0-52.0) L Mean Corpuscular Volume 97 FL (80-99) Mean Corpuscular Hemoglobin 32.6 PG (27.0-31.0) H Mean Corpuscular Hemoglobin Concent 33.7 G/DL (32.0-36.0) Red Cell Distribution Width 14.2 % (11.6-14.8) Platelet Count 173 K/UL (150-450) Mean Platelet Volume 7.8 FL (6.5-10.1) Neutrophils (%) (Auto) % (45.0-75.0) Lymphocytes (%) (Auto) % (20.0-45.0) Monocytes (%) (Auto) % (1.0-10.0) Eosinophils (%) (Auto) % (0.0-3.0) Basophils (%) (Auto) % (0.0-2.0) Differential Total Cells Counted 100 Neutrophils % (Manual) 83 % (45-75) H Lymphocytes % (Manual) 10 % (20-45) L Monocytes % (Manual) 6 % (1-10) Eosinophils % (Manual) 1 % (0-3) Basophils % (Manual) 0 % (0-2) Band Neutrophils 0 % (0-8) Platelet Estimate Adequate Platelet Morphology Normal Anisocytosis 1+ Prothrombin Time 12.1 SEC (9.30-11.50) H Prothromb Time International Ratio 1.2 (0.9-1.1) H Activated Partial Thromboplast Time 40 SEC (23-33) H Sodium Level 142 mEQ/L (135-145) Potassium Level 3.7 mEQ/L (3.4-4.9) Chloride Level 105 mEQ/L (98-107) Carbon Dioxide Level 21 mEQ/L (20-30) Anion Gap 16 (5-15) H Blood Urea Nitrogen 15 mg/dL (7-23) Creatinine 0.6 mg/dL (0.7-1.2) L Estimat Glomerular Filtration Rate > 60 mL/min (>60) Glucose Level 125 mg/dL (74-106) H Uric Acid 5.9 mg/dL (3.0-7.5) Calcium Level 7.9 mg/dL (8.6-10.2) L Phosphorus Level 1.8 mg/dL (2.5-4.8) L Magnesium Level 1.8 mg/dL (1.7-2.5) Total Bilirubin 0.4 mg/dL (0.0-1.2) Aspartate Amino Transf (AST/SGOT) 43 U/L (5-40) H Alanine Aminotransferase (ALT/SGPT) 27 U/L (3-41) Alkaline Phosphatase 80 U/L (40-129) C-Reactive Protein, Quantitative 25.4 mg/dL (< 0.5) H Pro-B-Type Natriuretic Peptide 1025 pg/mL (0-125) H Total Protein 6.5 g/dL (6.6-8.7) L Albumin 2.5 g/dL (3.5-5.2) L Globulin 4.0 g/dL Albumin/Globulin Ratio 0.6 (1.0-2.7) L Thyroid Stimulating Hormone (TSH) 2.840 uIU/mL (0.300-4.500) REY YAN Dec 25, 2016 08:20
[2016-12-25] MEDS: Pantoprazole Inj IVP SCH (08:40)
[2016-12-25] MEDS: Heparin 5000 units/ml inj SUBQ SCH ×2 (08:44→20:03)
[2016-12-25] MEDS ORDERED: Phospha 250 Neutral tab ORAL ONE (09:00)
[2016-12-25 09:54] LABS: ABG ALLEN TEST POSITIVE; ABG BASE EXCESS -4.8; ABG PCO2 34.4 mmHg (35.0-45.0)
[2016-12-25] MEDS ORDERED: LORazepam Inj 2mg/ml 1ml IV PRN (12:00)
[2016-12-25] MEDS ORDERED: Ertapenem 1 GM in NS 55 ML IV SCH (12:00)
[2016-12-25] MEDS ORDERED: Potassium Phosphate 30 MM in NS 275 ML IV ONE ×4 (12:00)
--- NOTE | 2016-12-25 12:11 | General Progress Note ---
Assessment/Plan Status: stable - from renal stand Status Narrative Low Phos Low Alb Assessment/Plan status; (1) Septic shock , low BP being on pressor leading to Oliguria and renal failure (2) Seizure disorder as sequela of cerebrovascular accident (3) Ventilator dependence (4) Vegetative state (5) Feeding by G-tube Plan: Antibiotics- Phos supplement Vent support- Monitor renal parameters and urine out put Avoid nephrotoxics discussed with RN Subjective ROS Limited/Unobtainable: Yes Allergies: Coded Allergies: No Known Allergies (Unverified , 12/13/16) Objective Last 24 Hour Vital Signs Date Time Temp Pulse Resp B/P Pulse Ox O2 Delivery O2 Flow Rate FiO2 12/25/16 11:00 90 18 111/62 100 Mechanical Ventilator 40 12/25/16 11:00 95 20 40 12/25/16 10:00 93 18 120/68 100 Mechanical Ventilator 40 12/25/16 09:10 92 19 40 12/25/16 09:00 93 18 114/65 100 Mechanical Ventilator 40 12/25/16 08:00 94 12/25/16 08:00 98.4 94 18 127/79 100 Mechanical Ventilator 40 12/25/16 08:00 40 12/25/16 07:06 97 18 40 12/25/16 07:00 97.7 100 19 98/55 100 Mechanical Ventilator 40 12/25/16 06:52 97.7 12/25/16 06:00 98.8 88 18 106/62 100 Mechanical Ventilator 40 12/25/16 05:00 102 18 106/65 100 Mechanical Ventilator 40 12/25/16 04:55 99 18 40 12/25/16 04:00 40 12/25/16 04:00 88 12/25/16 04:00 97.8 98 18 102/55 100 Mechanical Ventilator 40 12/25/16 03:08 105 20 40 12/25/16 03:00 103 20 119/69 100 Mechanical Ventilator 40 12/25/16 02:00 102 20 115/63 100 Mechanical Ventilator 40 12/25/16 01:00 102 19 40 12/25/16 01:00 100 19 109/62 100 Mechanical Ventilator 40 12/25/16 00:30 106 23 112/56 100 Mechanical Ventilator 40 12/25/16 00:00 97.8 107 24 119/64 99 Mechanical Ventilator 40 12/25/16 00:00 107 7/4/17 00:00 40 7/3/17 23:30 104 22 133/62 100 Mechanical Ventilator 40 7/3/17 23:15 101 21 40 7/3/17 23:00 101 21 131/61 100 Mechanical Ventilator 40 7/3/17 22:30 104 20 95/61 100 Mechanical Ventilator 40 7/3/17 22:00 98 18 110/56 100 Mechanical Ventilator 40 7/3/17 21:30 96 18 100/57 100 Mechanical Ventilator 40 7/3/17 21:29 97 18 40 7/3/17 21:15 96 18 96/60 100 Mechanical Ventilator 40 7/3/17 21:00 93/48 7/3/17 21:00 92 18 93/48 100 Mechanical Ventilator 40 7/3/17 20:45 93 18 96/58 100 Mechanical Ventilator 40 7/3/17 20:30 94 18 101/59 100 Mechanical Ventilator 40 7/3/17 20:15 94 18 106/61 100 Mechanical Ventilator 40 7/3/17 20:00 40 7/3/17 20:00 96 7/3/17 20:00 111/63 7/3/17 20:00 98.0 93 18 111/63 100 Mechanical Ventilator 40 7/3/17 19:45 94 18 105/59 100 Mechanical Ventilator 40 7/3/17 19:30 93 18 108/61 100 Mechanical Ventilator 40 7/3/17 19:30 93 17 40 7/3/17 19:15 92 18 101/65 100 Mechanical Ventilator 40 7/3/17 19:00 90 18 105/55 100 Mechanical Ventilator 40 7/3/17 18:53 105/63 7/3/17 18:45 92 18 105/63 100 Mechanical Ventilator 40 7/3/17 18:30 91 18 99/57 100 Mechanical Ventilator 40 7/3/17 18:00 89 18 95/50 100 Mechanical Ventilator 40 7/3/17 18:00 99/63 7/3/17 17:30 94 18 94/60 100 Mechanical Ventilator 40 7/3/17 17:00 99.0 94 18 98/57 100 Mechanical Ventilator 40 7/3/17 17:00 94/64 7/3/17 17:00 91 17 94/64 100 Mechanical Ventilator 40 7/3/17 16:46 91 16 40 7/3/17 16:30 99.7 95 17 89/61 100 Mechanical Ventilator 40 12/24/16 16:00 97 12/24/16 16:00 100.0 98 18 93/60 100 Mechanical Ventilator 40 12/24/16 16:00 93/60 12/24/16 16:00 40 12/24/16 15:45 97 17 97/65 100 Mechanical Ventilator 40 12/24/16 15:30 97 18 101/61 100 Mechanical Ventilator 40 12/24/16 15:15 97 18 104/61 100 Mechanical Ventilator 40 12/24/16 15:00 97 18 104/61 100 Mechanical Ventilator 40 12/24/16 15:00 104/61 12/24/16 14:58 99 18 40 12/24/16 14:45 97 18 109/68 100 Mechanical Ventilator 40 12/24/16 14:30 97 18 100/63 100 Mechanical Ventilator 40 12/24/16 14:15 97 18 99/62 100 Mechanical Ventilator 40 12/24/16 14:00 99/63 12/24/16 14:00 99 18 99/63 100 Mechanical Ventilator 40 12/24/16 13:30 99.5 99 18 86/60 100 Mechanical Ventilator 40 12/24/16 13:01 104 20 40 12/24/16 13:00 102 16 91/61 100 Mechanical Ventilator 40 12/24/16 13:00 91/12/24/16 12:30 101 16 98/65 100 Mechanical Ventilator 40 12/24/16 12:15 100 16 101/67 100 Mechanical Ventilator 40 Intake and Output 12/24/16 12/25/16 19:00 07:00 Intake Total 1479.79 ml 1267.62 ml Output Total 265 ml 700 ml Balance 1214.79 ml 567.62 ml IV Total 1399.79 ml 1207.62 ml Other 80 ml 60 ml Output Urine Total 265 ml 700 ml Laboratory Tests 12/24/16 16:00: Amikacin Level Trough 11.6 12/25/16 04:00: White Blood Count 14.2H, Red Blood Count 2.87L, Hemoglobin 9.4L, Hematocrit 27.8L, Mean Corpuscular Volume 97, Mean Corpuscular Hemoglobin 32.6H, Mean Corpuscular Hemoglobin Concent 33.7, Red Cell Distribution Width 14.2, Platelet Count 173, Mean Platelet Volume 7.8, Neutrophils (%) (Auto) , Lymphocytes (%) ( Auto) , Monocytes (%) (Auto) , Eosinophils (%) (Auto) , Basophils (%) (Auto) , Differential Total Cells Counted 100, Neutrophils % (Manual) 83H, Lymphocytes % (Manual) 10L, Monocytes % (Manual) 6, Eosinophils % (Manual) 1, Basophils % ( Manual) 0, Band Neutrophils 0, Platelet Estimate Adequate, Platelet Morphology Normal, Anisocytosis 1+, Prothrombin Time 12.1H, Prothromb Time International Ratio 1.2H, Activated Partial Thromboplast Time 40H, Sodium Level 142, Potassium Level 3.7, Chloride Level 105, Carbon Dioxide Level 21, Anion Gap 16H , Blood Urea Nitrogen 15, Creatinine 0.6L, Estimat Glomerular Filtration Rate > 60, Glucose Level 125H, Uric Acid 5.9, Calcium Level 7.9L, Phosphorus Level 1.8L , Magnesium Level 1.8, Total Bilirubin 0.4, Aspartate Amino Transf (AST/SGOT) 43H, Alanine Aminotransferase (ALT/SGPT) 27, Alkaline Phosphatase 80, C- Reactive Protein, Quantitative 25.4H, Pro-B-Type Natriuretic Peptide 1025H, Total Protein 6.5L, Albumin 2.5L, Globulin 4.0, Albumin/Globulin Ratio 0.6L, Thyroid Stimulating Hormone (TSH) 2.840 12/25/16 08:02: Arterial Blood pH 7.377, Arterial Blood Partial Pressure CO2 34.4L, Arterial Blood Partial Pressure O2 164.2H, Arterial Blood HCO3 19.8L, Arterial Blood Oxygen Saturation 98.3H, Arterial Blood Base Excess -4.8, Karson Test Positive Height (Feet): 5 Height (Inches): 9.00 Weight (Pounds): 172 General Appearance: no apparent distress Objective other PE not changed LANI WEBSTER Dec 25, 2016 12:11
[2016-12-25] MEDS: Ertapenem 1 GM in NS 55 ML IV SCH (12:39)
[2016-12-25] MEDS ORDERED: DuoNeb 0.5-3(2.5)mg/3ml neb HHN PRN (13:00)
[2016-12-25] MEDS ORDERED: Morphine Sulfate 4mg/ml Inj IVP PRN (13:00)
[2016-12-25] MEDS ORDERED: Vancomycin 1.5 GM in D5W 325 ML IVPB SCH (14:00)
--- NOTE | 2016-12-25 14:42 | Infectious Diseases Prog Note ---
Assessment/Plan Assessment/Plan ASSESSMENT: The patient is a 66-year-old male as mentioned w Sepsis/septic shock, SP Leukocytosis. Bactermia : GNR Probable urinary tract infection/pyuria UCx: GNR Probable pneumonia Scx GNR Sacral wound : not infected Wnd Cx : staph and GNR : Colonizer Seizure disorder Anoxic brain injury Cerebrovascular accident Anemia Hyperlipidemia Hypothyroidism Chronic kidney disease Status post trach and PEG History of ventilator-dependent respiratory failure Gastroesophageal reflux disease Diabetes PLAN: We will continue the patient on IV amikacin, and Invanz d# 2 DC vancomycin d# 2 Monitor CBC. Monitor BMP. Monitor cultures (wound, blood, sputum, urine). Continue the patient on respiratory support. Monitor chest x-ray Subjective Allergies: Coded Allergies: No Known Allergies (Unverified , 12/13/16) Subjective transferred out of ICU Objective Vital Signs Last 24 Hour Vital Signs Date Time Temp Pulse Resp B/P Pulse Ox O2 Delivery O2 Flow Rate FiO2 12/25/16 13:28 92 20 40 12/25/16 12:00 90 12/25/16 12:00 97.7 97 18 132/78 100 Mechanical Ventilator 40 12/25/16 12:00 40 12/25/16 11:00 90 18 111/62 100 Mechanical Ventilator 40 12/25/16 11:00 95 20 40 12/25/16 10:00 93 18 120/68 100 Mechanical Ventilator 40 12/25/16 09:10 92 19 40 12/25/16 09:00 93 18 114/65 100 Mechanical Ventilator 40 12/25/16 08:00 94 12/25/16 08:00 98.4 94 18 127/79 100 Mechanical Ventilator 40 12/25/16 08:00 40 12/25/16 07:06 97 18 40 12/25/16 07:00 97.7 100 19 98/55 100 Mechanical Ventilator 40 12/25/16 06:52 97.7 12/25/16 06:00 98.8 88 18 106/62 100 Mechanical Ventilator 40 12/25/16 05:00 102 18 106/65 100 Mechanical Ventilator 40 12/25/16 04:55 99 18 40 12/25/16 04:00 40 12/25/16 04:00 88 12/25/16 04:00 97.8 98 18 102/55 100 Mechanical Ventilator 40 12/25/16 03:08 105 20 40 7/4/17 03:00 103 20 119/69 100 Mechanical Ventilator 40 7/4/17 02:00 102 20 115/63 100 Mechanical Ventilator 40 7/4/17 01:00 102 19 40 7/4/17 01:00 100 19 109/62 100 Mechanical Ventilator 40 7/4/17 00:30 106 23 112/56 100 Mechanical Ventilator 40 7/4/17 00:00 97.8 107 24 119/64 99 Mechanical Ventilator 40 7/4/17 00:00 107 7/4/17 00:00 40 7/3/17 23:30 104 22 133/62 100 Mechanical Ventilator 40 7/3/17 23:15 101 21 40 7/3/17 23:00 101 21 131/61 100 Mechanical Ventilator 40 7/3/17 22:30 104 20 95/61 100 Mechanical Ventilator 40 7/3/17 22:00 98 18 110/56 100 Mechanical Ventilator 40 7/3/17 21:30 96 18 100/57 100 Mechanical Ventilator 40 7/3/17 21:29 97 18 40 7/3/17 21:15 96 18 96/60 100 Mechanical Ventilator 40 7/3/17 21:00 93/48 7/3/17 21:00 92 18 93/48 100 Mechanical Ventilator 40 7/3/17 20:45 93 18 96/58 100 Mechanical Ventilator 40 7/3/17 20:30 94 18 101/59 100 Mechanical Ventilator 40 7/3/17 20:15 94 18 106/61 100 Mechanical Ventilator 40 7/3/17 20:00 40 7/3/17 20:00 96 7/3/17 20:00 111/63 7/3/17 20:00 98.0 93 18 111/63 100 Mechanical Ventilator 40 7/3/17 19:45 94 18 105/59 100 Mechanical Ventilator 40 7/3/17 19:30 93 18 108/61 100 Mechanical Ventilator 40 7/3/17 19:30 93 17 40 7/3/17 19:15 92 18 101/65 100 Mechanical Ventilator 40 7/3/17 19:00 90 18 105/55 100 Mechanical Ventilator 40 7/3/17 18:53 105/63 7/3/17 18:45 92 18 105/63 100 Mechanical Ventilator 40 7/3/17 18:30 91 18 99/57 100 Mechanical Ventilator 40 7/3/17 18:00 89 18 95/50 100 Mechanical Ventilator 40 12/24/16 18:00 99/63 12/24/16 17:30 94 18 94/60 100 Mechanical Ventilator 40 12/24/16 17:00 99.0 94 18 98/57 100 Mechanical Ventilator 40 12/24/16 17:00 94/64 12/24/16 17:00 91 17 94/64 100 Mechanical Ventilator 40 12/24/16 16:46 91 16 40 12/24/16 16:30 99.7 95 17 89/61 100 Mechanical Ventilator 40 12/24/16 16:00 97 12/24/16 16:00 100.0 98 18 93/60 100 Mechanical Ventilator 40 12/24/16 16:00 93/60 12/24/16 16:00 40 12/24/16 15:45 97 17 97/65 100 Mechanical Ventilator 40 12/24/16 15:30 97 18 101/61 100 Mechanical Ventilator 40 12/24/16 15:15 97 18 104/61 100 Mechanical Ventilator 40 12/24/16 15:00 97 18 104/61 100 Mechanical Ventilator 40 12/24/16 15:00 104/61 12/24/16 14:58 99 18 40 12/24/16 14:45 97 18 109/68 100 Mechanical Ventilator 40 Height (Feet): 5 Height (Inches): 9.00 Weight (Pounds): 172 HEENT: anicteric Respiratory/Chest: no respiratory distress Abdomen: no organomegaly Microbiology Date/Time Source Procedure Growth Status 12/23/16 20:29 Blood Blood Culture - Preliminary Resulted 12/23/16 20:20 Blood Blood Culture - Preliminary Resulted 12/24/16 06:00 Sputum Induced Gram Stain - Final Resulted 12/24/16 06:00 Sputum Culture - Preliminary Gram Negative Bacillus 1 Resulted 12/23/16 20:20 Urine,Clean Catch Urine Culture - Preliminary Gram Negative Bacillus 1 Resulted 12/24/16 01:00 Sacral Wound Gram Stain - Final Resulted 12/24/16 01:00 Wound Culture - Preliminary Gram Negative Bacillus 1 Gram Negative Bacillus 2 Staphylococcus Aureus Resulted Laboratory Tests Test 12/24/16 16:00 12/25/16 04:00 12/25/16 08:02 Amikacin Level Trough 11.6 ug/mL (10.0-15.0) White Blood Count 14.2 K/UL (4.8-10.8) H Red Blood Count 2.87 M/UL (4.70-6.10) L Hemoglobin 9.4 G/DL (14.2-18.0) L Hematocrit 27.8 % (42.0-52.0) L Mean Corpuscular Volume 97 FL (80-99) Mean Corpuscular Hemoglobin 32.6 PG (27.0-31.0) H Mean Corpuscular Hemoglobin Concent 33.7 G/DL (32.0-36.0) Red Cell Distribution Width 14.2 % (11.6-14.8) Platelet Count 173 K/UL (150-450) Mean Platelet Volume 7.8 FL (6.5-10.1) Neutrophils (%) (Auto) % (45.0-75.0) Lymphocytes (%) (Auto) % (20.0-45.0) Monocytes (%) (Auto) % (1.0-10.0) Eosinophils (%) (Auto) % (0.0-3.0) Basophils (%) (Auto) % (0.0-2.0) Differential Total Cells Counted 100 Neutrophils % (Manual) 83 % (45-75) H Lymphocytes % (Manual) 10 % (20-45) L Monocytes % (Manual) 6 % (1-10) Eosinophils % (Manual) 1 % (0-3) Basophils % (Manual) 0 % (0-2) Band Neutrophils 0 % (0-8) Platelet Estimate Adequate Platelet Morphology Normal Anisocytosis 1+ Prothrombin Time 12.1 SEC (9.30-11.50) H Prothromb Time International Ratio 1.2 (0.9-1.1) H Activated Partial Thromboplast Time 40 SEC (23-33) H Sodium Level 142 mEQ/L (135-145) Potassium Level 3.7 mEQ/L (3.4-4.9) Chloride Level 105 mEQ/L (98-107) Carbon Dioxide Level 21 mEQ/L (20-30) Anion Gap 16 (5-15) H Blood Urea Nitrogen 15 mg/dL (7-23) Creatinine 0.6 mg/dL (0.7-1.2) L Estimat Glomerular Filtration Rate > 60 mL/min (>60) Glucose Level 125 mg/dL (74-106) H Uric Acid 5.9 mg/dL (3.0-7.5) Calcium Level 7.9 mg/dL (8.6-10.2) L Phosphorus Level 1.8 mg/dL (2.5-4.8) L Magnesium Level 1.8 mg/dL (1.7-2.5) Total Bilirubin 0.4 mg/dL (0.0-1.2) Aspartate Amino Transf (AST/SGOT) 43 U/L (5-40) H Alanine Aminotransferase (ALT/SGPT) 27 U/L (3-41) Alkaline Phosphatase 80 U/L (40-129) C-Reactive Protein, Quantitative 25.4 mg/dL (< 0.5) H Pro-B-Type Natriuretic Peptide 1025 pg/mL (0-125) H Total Protein 6.5 g/dL (6.6-8.7) L Albumin 2.5 g/dL (3.5-5.2) L Globulin 4.0 g/dL Albumin/Globulin Ratio 0.6 (1.0-2.7) L Thyroid Stimulating Hormone (TSH) 2.840 uIU/mL (0.300-4.500) Arterial Blood pH 7.377 (7.350-7.450) Arterial Blood Partial Pressure CO2 34.4 mmHg (35.0-45.0) L Arterial Blood Partial Pressure O2 164.2 mmHg (75.0-100.0) H Arterial Blood HCO3 19.8 mmol/L (22.0-26.0) L Arterial Blood Oxygen Saturation 98.3 % (92.0-98.0) H Arterial Blood Base Excess -4.8 Karson Test Positive Current Medications Medications (Trade) Dose Ordered Sig/Dolly Route PRN Reason Start Time Stop Time Status Last Admin Dose Admin Acetaminophen (Tylenol) 650 mg Q4H PRN ORAL fever 12/25/16 15:15 01/24/17 15:14 Albuterol/ Ipratropium (DuoNeb 0.5-3(2.5)mg/3ml) 3 ml EVERY 4 HOURS PRN HHN Shortness of Breath 12/25/16 13:00 12/30/16 12:59 Amikacin Sulfate 1150 mg/Sodium Chloride 114.6 ml @ 114.6 mls/ hr Q36H IV 12/25/16 16:00 01/01/17 15:59 Ertapenem 1 gm/ Sodium Chloride 55 ml @ 110 mls/hr Q24H IV 12/25/16 12:00 12/30/16 11:59 12/25/16 12:39 Heparin Sodium (Porcine) (Heparin 5000 units/ml) 5,000 units EVERY 12 HOURS SUBQ 12/25/16 21:00 01/24/17 20:59 Levetiracetam (Keppra) 1,000 mg DAILY ORAL 12/26/16 09:00 01/25/17 08:59 Levothyroxine Sodium (Synthroid) 150 mcg DAILY@0630 ORAL 12/26/16 06:30 01/25/17 06:29 Lorazepam (Ativan 2mg/ml 1ml) 2 mg EVERY 2 HOURS PRN IV For Anxiety 12/25/16 12:00 01/01/17 11:59 Morphine Sulfate (Morphine Sulfate) 4 mg EVERY 4 HOURS PRN IVP Severe Pain (Pain Scale 7-10) 12/25/16 13:00 01/01/17 12:59 Ondansetron HCl (Zofran) 4 mg Q6H PRN IVP Nausea & Vomiting 12/25/16 17:15 01/24/17 17:14 Pantoprazole (Protonix) 40 mg DAILY IVP 12/26/16 09:00 01/25/17 08:59 Polyethylene Glycol (Miralax) 17 gm DAILYPRN PRN ORAL Constipation 12/25/16 23:15 01/24/17 23:14 Potassium Phosphate 30 mm/ Sodium Chloride 285 ml @ 46.944 mls/ hr ONCE ONCE IV 12/25/16 12:00 12/25/16 18:04 12/25/16 12:39 Sodium Chloride 1,000 ml @ 75 mls/hr [id number] IV 12/25/16 12:30 01/24/17 12:29 12/25/16 12:40 Vancomycin HCl (Vanco rx to dose) 1 ea DAILY PRN MISC PROTOCHOL 12/26/16 09:00 01/25/17 08:59 Vancomycin HCl/ Dextrose (Vancomycin/D5W) 325 ml @ 162.5 mls/ hr Q12H IVPB 12/25/16 14:00 12/30/16 13:59 12/25/16 13:58 KENDRICK RAMIRES M.D. Dec 25, 2016 14:42
[2016-12-25] MEDS ORDERED: NS IV SCH (16:00)
[2016-12-25] MEDS ORDERED: AMIKACIN IV SCH (16:00)
[2016-12-25] MEDS: NS IV SCH (16:54)
[2016-12-25] MEDS: AMIKACIN IV SCH (16:54)
[2016-12-25 17:33] LABS: HEMOLYSIS 3; IRON 25 ug/dL (59-158); TOTAL IRON BINDING CAPACITY 156 ug/dL (250-400)
[2016-12-25 17:41] LABS: FERRITIN 304 ng/mL (10-230)
[2016-12-25] MEDS ORDERED: Miralax 17gm pkt ORAL PRN (23:15)
[2016-12-26] VITALS (7 sets, daily range): BP systolic 125–148; BP diastolic 67–88
[2016-12-26 05:33] LABS: BASOPHILS % (AUTO) 1.2 % (0.0-2.0); EOSINOPHILS % (AUTO) 1.1 % (0.0-3.0); LYMPHOCYTES % (AUTO) 8.5 % (20.0-45.0); MEAN CORPUSCULAR HGB CONC 31.7 G/DL (32.0-36.0); MEAN CORPUSCULAR VOLUME 101 FL (80-99); MEAN PLATELET VOLUME 6.5 FL (6.5-10.1); MONOCYTES % (AUTO) 5.2 % (1.0-10.0); NEUTROPHILS % (AUTO) 84.1 % (45.0-75.0); PLATELET COUNT 180 K/UL (150-450); RED BLOOD COUNT 2.92 M/UL (4.70-6.10); RED CELL DISTRIBUTION WIDTH 14.9 % (11.6-14.8); WHITE BLOOD COUNT 14.2 K/UL (4.8-10.8)
[2016-12-26 06:08] LABS: ALANINE AMINOTRANSFERASE 29 U/L (3-41); ALBUMIN/GLOBULIN RATIO 0.6 (1.0-2.7); ANION GAP 13 (5-15); ASPARTATE AMINO TRANSFERASE 43 U/L (5-40); CALCIUM 7.9 mg/dL (8.6-10.2); CARBON DIOXIDE 17 mEQ/L (20-30); CHLORIDE 113 mEQ/L (98-107); CREATININE 0.7 mg/dL (0.7-1.2); GLOMERULAR FILTRATION RATE > 60 mL/min (>60); HEMOLYSIS 59; POTASSIUM 4.9 mEQ/L (3.4-4.9); SODIUM 143 mEQ/L (135-145); TOTAL PROTEIN 6.4 g/dL (6.6-8.7)
[2016-12-26] MEDS: Heparin 5000 units/ml inj SUBQ SCH ×2 (08:37→20:54)
[2016-12-26] MEDS: Pantoprazole Inj IVP SCH (08:38)
[2016-12-26] MEDS ORDERED: levETIRAcetam 500mg/5ml Liquid GT SCH (09:00)
[2016-12-26] MEDS ORDERED: Acetaminophen 650mg/20.3ml GT PRN (09:00)
[2016-12-26] MEDS ORDERED: Dyna-Hex 2% Top Sol 8oz TOPIC SCH ×2 (09:00→21:00)
[2016-12-26] MEDS: Ertapenem 1 GM in NS 55 ML IV SCH (11:18)
--- NOTE | 2016-12-26 12:43 | Diagnostic Imaging Report ---
Indication: Dyspnea Comparison: 12/24/16 A single view chest radiograph was obtained. Findings: Suggestion of basilar opacities possibly effusions. Heart is enlarged. Number vascularity is within normal limits. Impression: Possible small bilateral pleural effusions
--- NOTE | 2016-12-26 14:44 | General Progress Note ---
Assessment/Plan Status: stable - from renal stand point Assessment/Plan status; (1) Septic shock , low BP being on pressor leading to Oliguria and renal failure (2) Seizure disorder as sequela of cerebrovascular accident (3) Ventilator dependence (4) Vegetative state (5) Feeding by G-tube Plan: Antibiotics- Phos supplement Vent support- Monitor renal parameters and urine out put Avoid nephrotoxics discussed with RN Subjective ROS Limited/Unobtainable: Yes Allergies: Coded Allergies: No Known Allergies (Unverified , 12/13/16) Objective Last 24 Hour Vital Signs Date Time Temp Pulse Resp B/P Pulse Ox O2 Delivery O2 Flow Rate FiO2 12/26/16 13:26 83 18 40 12/26/16 12:00 40 12/26/16 12:00 99.1 93 18 131/77 100 Mechanical Ventilator 12/26/16 11:38 85 12/26/16 11:26 97 20 40 12/26/16 09:21 90 18 40 12/26/16 08:00 98.4 92 20 125/78 100 Mechanical Ventilator 40 12/26/16 08:00 40 12/26/16 07:49 103 12/26/16 07:29 87 20 40 12/26/16 04:55 101 20 40 12/26/16 04:00 40 12/26/16 04:00 99.1 92 20 128/67 98 Mechanical Ventilator 40 12/26/16 03:34 95 12/26/16 02:59 98 18 40 12/26/16 01:01 102 18 40 12/26/16 00:00 40 12/26/16 00:00 88 12/26/16 00:00 99.2 98 20 138/86 100 Mechanical Ventilator 40 98 12/25/16 23:00 100 21 40 12/25/16 20:58 106 20 40 12/25/16 20:00 99.5 101 20 154/87 100 Mechanical Ventilator 40 12/25/16 20:00 98 12/25/16 20:00 40 12/25/16 18:40 104 21 40 12/25/16 17:22 91 20 40 12/25/16 16:00 40 12/25/16 16:00 93 12/25/16 16:00 97.9 100 18 133/73 100 Mechanical Ventilator 40 12/25/16 15:29 91 18 40 Intake and Output 12/25/16 12/26/16 19:00 07:00 Intake Total 1149.320 ml 1342 ml Output Total 850 ml 500 ml Balance 299.320 ml 842 ml Free Water 110 ml 50 ml IV Total 879.320 ml 832 ml Tube Feeding 110 ml 400 ml Other 50 ml 60 ml Output Urine Total 850 ml 500 ml Laboratory Tests 12/25/16 16:30: Iron Level 25L, Total Iron Binding Capacity 156L, Percent Iron Saturation 16, Unsaturated Iron Binding 131, Ferritin 304H, Vitamin B12 Level 2000H, Folate [ Pending] 12/26/16 03:50: White Blood Count 14.2H, Red Blood Count 2.92L, Hemoglobin 9.3L, Hematocrit 29.4L, Mean Corpuscular Volume 101H, Mean Corpuscular Hemoglobin 32.0H, Mean Corpuscular Hemoglobin Concent 31.7L, Red Cell Distribution Width 14.9H, Platelet Count 180, Mean Platelet Volume 6.5, Neutrophils (%) (Auto) 84.1H, Lymphocytes (%) (Auto) 8.5L, Monocytes (%) (Auto) 5.2, Eosinophils (%) (Auto) 1.1, Basophils (%) (Auto) 1.2, Sodium Level 143, Potassium Level 4.9, Chloride Level 113H, Carbon Dioxide Level 17L, Anion Gap 13, Blood Urea Nitrogen 13, Creatinine 0.7, Estimat Glomerular Filtration Rate > 60, Glucose Level 87, Calcium Level 7.9L, Total Bilirubin 0.3, Aspartate Amino Transf (AST/SGOT) 43H, Alanine Aminotransferase (ALT/SGPT) 29, Alkaline Phosphatase 87, Pro-B-Type Natriuretic Peptide 837H, Total Protein 6.4L, Albumin 2.4L, Globulin 4.0, Albumin/Globulin Ratio 0.6L Height (Feet): 5 Height (Inches): 9.00 Weight (Pounds): 172 General Appearance: no apparent distress Objective other PE not changed LANI WEBSTER Dec 26, 2016 14:44
[2016-12-26 16:10] LABS: MAGNESIUM 2.1 mg/dL (1.7-2.5); PHOSPHORUS 2.7 mg/dL (2.5-4.8)
[2016-12-26] MEDS ORDERED: Tubing IV Secondary IV ONE ×2 (17:44→17:49)
[2016-12-26] MEDS ORDERED: NS 275ml ONE ×2 (17:44→18:30)
[2016-12-26] MEDS ORDERED: D5W 275ml ONE ×2 (17:49→18:30)
[2016-12-26] MEDS ORDERED: D5 1/2NS 1000ml IV ONE (17:49)
--- NOTE | 2016-12-26 20:22 | Infectious Diseases Prog Note ---
Assessment/Plan Assessment/Plan ASSESSMENT: The patient is a 66-year-old male as mentioned w Sepsis/septic shock, SP Leukocytosis. Bactermia : GNR Probable urinary tract infection/pyuria UCx: GNR Probable pneumonia Scx GNR x 2 Sacral wound : not infected Wnd Cx : staph and GNR : Colonizer Seizure disorder Anoxic brain injury Cerebrovascular accident Anemia Hyperlipidemia Hypothyroidism Chronic kidney disease Status post trach and PEG History of ventilator-dependent respiratory failure Gastroesophageal reflux disease Diabetes PLAN: We will continue the patient on IV amikacin, and Invanz d# 3 7/4 SP vancomycin d# 2 Monitor CBC. Monitor BMP. Monitor cultures (wound, blood, sputum, urine). Continue the patient on respiratory support. Monitor chest x-ray Subjective Allergies: Coded Allergies: No Known Allergies (Unverified , 12/13/16) Subjective no acute event Objective Vital Signs Last 24 Hour Vital Signs Date Time Temp Pulse Resp B/P Pulse Ox O2 Delivery O2 Flow Rate FiO2 12/26/16 20:00 99.9 82 18 137/82 100 Mechanical Ventilator 12/26/16 16:58 79 18 40 12/26/16 16:00 98.9 84 18 148/76 100 Mechanical Ventilator 40 12/26/16 16:00 40 12/26/16 15:29 93 19 40 12/26/16 15:08 83 12/26/16 13:26 83 18 40 12/26/16 12:00 40 12/26/16 12:00 99.1 93 18 131/77 100 Mechanical Ventilator 12/26/16 11:38 85 12/26/16 11:26 97 20 40 12/26/16 09:21 90 18 40 12/26/16 08:00 98.4 92 20 125/78 100 Mechanical Ventilator 40 12/26/16 08:00 40 12/26/16 07:49 103 12/26/16 07:29 87 20 40 12/26/16 04:55 101 20 40 12/26/16 04:00 40 12/26/16 04:00 99.1 92 20 128/67 98 Mechanical Ventilator 40 12/26/16 03:34 95 12/26/16 02:59 98 18 40 12/26/16 01:01 102 18 40 12/26/16 00:00 40 12/26/16 00:00 88 12/26/16 00:00 99.2 98 20 138/86 100 Mechanical Ventilator 40 98 12/25/16 23:00 100 21 40 12/25/16 20:58 106 20 40 Height (Feet): 5 Height (Inches): 9.00 Weight (Pounds): 172 HEENT: mucous membranes moist Respiratory/Chest: normal breath sounds Cardiovascular: normal rate Abdomen: soft, non tender Skin: no rash Microbiology Date/Time Source Procedure Growth Status 12/23/16 20:29 Blood Blood Culture - Preliminary Gram Negative Bacillus 1 Resulted 12/24/16 06:00 Sputum Induced Gram Stain - Final Resulted 12/24/16 06:00 Sputum Culture - Preliminary Gram Negative Bacillus 1 Gram Negative Bacillus 2 Resulted 12/24/16 01:00 Nasal Nares MRSA Culture - Final Staphylococcus Aureus - Mrsa Complete 12/24/16 01:00 Sacral Wound Gram Stain - Final Resulted 12/24/16 01:00 Wound Culture - Preliminary A.baumanii Complx - Mdr Gram Negative Bacillus 2 Staphylococcus Aureus Resulted Laboratory Tests Test 12/26/16 03:50 12/26/16 15:15 White Blood Count 14.2 K/UL (4.8-10.8) H Red Blood Count 2.92 M/UL (4.70-6.10) L Hemoglobin 9.3 G/DL (14.2-18.0) L Hematocrit 29.4 % (42.0-52.0) L Mean Corpuscular Volume 101 FL (80-99) H Mean Corpuscular Hemoglobin 32.0 PG (27.0-31.0) H Mean Corpuscular Hemoglobin Concent 31.7 G/DL (32.0-36.0) L Red Cell Distribution Width 14.9 % (11.6-14.8) H Platelet Count 180 K/UL (150-450) Mean Platelet Volume 6.5 FL (6.5-10.1) Neutrophils (%) (Auto) 84.1 % (45.0-75.0) H Lymphocytes (%) (Auto) 8.5 % (20.0-45.0) L Monocytes (%) (Auto) 5.2 % (1.0-10.0) Eosinophils (%) (Auto) 1.1 % (0.0-3.0) Basophils (%) (Auto) 1.2 % (0.0-2.0) Sodium Level 143 mEQ/L (135-145) Potassium Level 4.9 mEQ/L (3.4-4.9) Chloride Level 113 mEQ/L (98-107) H Carbon Dioxide Level 17 mEQ/L (20-30) L Anion Gap 13 (5-15) Blood Urea Nitrogen 13 mg/dL (7-23) Creatinine 0.7 mg/dL (0.7-1.2) Estimat Glomerular Filtration Rate > 60 mL/min (>60) Glucose Level 87 mg/dL (74-106) Calcium Level 7.9 mg/dL (8.6-10.2) L Total Bilirubin 0.3 mg/dL (0.0-1.2) Aspartate Amino Transf (AST/SGOT) 43 U/L (5-40) H Alanine Aminotransferase (ALT/SGPT) 29 U/L (3-41) Alkaline Phosphatase 87 U/L (40-129) Pro-B-Type Natriuretic Peptide 837 pg/mL (0-125) H Total Protein 6.4 g/dL (6.6-8.7) L Albumin 2.4 g/dL (3.5-5.2) L Globulin 4.0 g/dL Albumin/Globulin Ratio 0.6 (1.0-2.7) L Phosphorus Level 2.7 mg/dL (2.5-4.8) Magnesium Level 2.1 mg/dL (1.7-2.5) Current Medications Medications (Trade) Dose Ordered Sig/Dolly Route PRN Reason Start Time Stop Time Status Last Admin Dose Admin Acetaminophen (Tylenol) 650 mg Q4H PRN GT fever>100.5 12/26/16 09:00 01/25/17 08:59 Albuterol/ Ipratropium (DuoNeb 0.5-3(2.5)mg/3ml) 3 ml EVERY 4 HOURS PRN HHN Shortness of Breath 12/25/16 13:00 12/30/16 12:59 Amikacin Sulfate 1150 mg/Sodium Chloride 114.6 ml @ 114.6 mls/ hr Q36H IV 12/25/16 16:00 01/01/17 15:59 12/25/16 16:54 Chlorhexidine Gluconate (Leesa-Hex 2%) 1 applic QHS TOPIC 12/26/16 21:00 01/25/17 20:59 Ertapenem/Sodium Chloride (INVanz/Sodium Chloride) 55 ml @ 110 mls/hr Q24H IV 12/25/16 12:00 12/30/16 11:59 12/26/16 11:18 Heparin Sodium (Porcine) (Heparin 5000 units/ml) 5,000 units EVERY 12 HOURS SUBQ 12/25/16 21:00 01/24/17 20:59 12/26/16 08:37 Levetiracetam (Keppra) 1,000 mg DAILY GT 12/27/16 09:00 01/26/17 08:59 Levothyroxine Sodium (Synthroid) 150 mcg DAILY@0630 ORAL 12/26/16 06:30 01/25/17 06:29 12/26/16 06:05 Lorazepam (Ativan 2mg/ml 1ml) 2 mg EVERY 2 HOURS PRN IV For Anxiety 12/25/16 12:00 01/01/17 11:59 Morphine Sulfate (Morphine Sulfate) 4 mg EVERY 4 HOURS PRN IVP Severe Pain (Pain Scale 7-10) 12/25/16 13:00 01/01/17 12:59 Ondansetron HCl (Zofran) 4 mg Q6H PRN IVP Nausea & Vomiting 12/25/16 17:15 01/24/17 17:14 Pantoprazole (Protonix) 40 mg DAILY IVP 12/26/16 09:00 01/25/17 08:59 12/26/16 08:38 Polyethylene Glycol (Miralax) 17 gm DAILYPRN PRN ORAL Constipation 12/25/16 23:15 01/24/17 23:14 KENDRICK RAMIRES M.D. Dec 26, 2016 20:22
[2016-12-27 04:00] VITALS: BP 149/73
[2016-12-27] MEDS: AMIKACIN IV SCH (04:03)
[2016-12-27] MEDS: NS IV SCH (04:03)
[2016-12-27 08:11] VITALS: BP 153/78
[2016-12-27] MEDS: levETIRAcetam 500mg/5ml Liquid GT SCH (08:12)
[2016-12-27] MEDS: Pantoprazole Inj IVP SCH (08:12)
[2016-12-27] MEDS: Heparin 5000 units/ml inj SUBQ SCH ×2 (08:16→21:06)
--- NOTE | 2016-12-27 09:52 | General Progress Note ---
Assessment/Plan Status: stable Assessment/Plan status; (1) Septic shock , low BP being on pressor leading to Oliguria and renal failure (2) Seizure disorder as sequela of cerebrovascular accident (3) Ventilator dependence (4) Vegetative state (5) Feeding by G-tube Plan: Antibiotics- Phos supplement as needed Vent support- Monitor renal parameters and urine out put Avoid nephrotoxics discussed with RN Subjective ROS Limited/Unobtainable: Yes Allergies: Coded Allergies: No Known Allergies (Unverified , 12/13/16) Objective Last 24 Hour Vital Signs Date Time Temp Pulse Resp B/P Pulse Ox O2 Delivery O2 Flow Rate FiO2 12/27/16 08:43 55 18 40 12/27/16 08:11 98.5 76 18 153/78 100 Mechanical Ventilator 12/27/16 07:30 82 19 40 12/27/16 05:09 84 18 40 12/27/16 04:00 72 12/27/16 04:00 40 12/27/16 04:00 99.2 85 20 149/73 100 Mechanical Ventilator 12/27/16 03:08 95 19 40 12/27/16 01:30 79 18 40 12/27/16 00:00 75 12/27/16 00:00 40 12/26/16 23:51 99.6 86 18 140/88 100 Mechanical Ventilator 12/26/16 23:30 76 18 40 12/26/16 21:30 78 18 40 12/26/16 20:00 80 12/26/16 20:00 40 12/26/16 20:00 99.9 82 18 137/82 100 Mechanical Ventilator 12/26/16 19:30 85 21 40 12/26/16 16:58 79 18 40 12/26/16 16:00 98.9 84 18 148/76 100 Mechanical Ventilator 40 12/26/16 16:00 40 12/26/16 15:29 93 19 40 12/26/16 15:08 83 12/26/16 13:26 83 18 40 12/26/16 12:00 40 12/26/16 12:00 99.1 93 18 131/77 100 Mechanical Ventilator 12/26/16 11:38 85 12/26/16 11:26 97 20 40 Intake and Output 12/26/16 12/27/16 19:00 07:00 Intake Total 1200 ml 814.6 ml Output Total 575 ml 600 ml Balance 625 ml 214.6 ml Free Water 200 ml 100 ml IV Total 280 ml 114.6 ml Tube Feeding 720 ml 600 ml Output Urine Total 575 ml 600 ml Laboratory Tests 12/26/16 15:15: Phosphorus Level 2.7, Magnesium Level 2.1 Height (Feet): 5 Height (Inches): 9.00 Weight (Pounds): 172 General Appearance: no apparent distress Objective other PE not changed LANI WEBSTER Dec 27, 2016 09:52
[2016-12-27 11:28] VITALS: BP 146/79
--- NOTE | 2016-12-27 12:02 | Pulmonology Progress Note ---
Assessment/Plan Problems: (1) Septic shock (2) Seizure disorder as sequela of cerebrovascular accident (3) Ventilator dependence (4) Vegetative state (5) Feeding by G-tube Respiratory: monitor respiratory rate, adjust FIO2 Cardiac: continue to monitor HR/BP Renal: F/U I&O, keep IV fluid Infectious Disease: check cultures Gastrointestinal: continue feedings/current rate Endocrine: monitor blood sugar, check TSH, continue sliding scale insulin Hematologic: monitor H/H, transfuse if hgb<8.5 Neurologic: PRN Morphine, keep patient comfortable Affect: PRN ativan Prophylaxis: Protonix Notes Reviewed: cardio, renal Discussed with: nurses, consultants, heel caser Subjective ROS Limited/Unobtainable: No Interval Events: late note for 12/26 Allergies: Coded Allergies: No Known Allergies (Unverified , 12/13/16) Objective Last 24 Hour Vital Signs Date Time Temp Pulse Resp B/P Pulse Ox O2 Delivery O2 Flow Rate FiO2 12/27/16 11:28 99.1 83 19 146/79 99 Mechanical Ventilator 12/27/16 10:55 88 19 40 12/27/16 08:43 55 18 40 12/27/16 08:11 98.5 76 18 153/78 100 Mechanical Ventilator 12/27/16 07:46 85 12/27/16 07:30 82 19 40 12/27/16 05:09 84 18 40 12/27/16 04:00 72 12/27/16 04:00 40 12/27/16 04:00 99.2 85 20 149/73 100 Mechanical Ventilator 12/27/16 03:08 95 19 40 12/27/16 01:30 79 18 40 12/27/16 00:00 75 12/27/16 00:00 40 12/26/16 23:51 99.6 86 18 140/88 100 Mechanical Ventilator 12/26/16 23:30 76 18 40 12/26/16 21:30 78 18 40 12/26/16 20:00 80 12/26/16 20:00 40 12/26/16 20:00 99.9 82 18 137/82 100 Mechanical Ventilator 12/26/16 19:30 85 21 40 12/26/16 16:58 79 18 40 12/26/16 16:00 98.9 84 18 148/76 100 Mechanical Ventilator 40 12/26/16 16:00 40 12/26/16 15:29 93 19 40 12/26/16 15:08 83 12/26/16 13:26 83 18 40 Intake and Output 12/26/16 12/27/16 19:00 07:00 Intake Total 1200 ml 814.6 ml Output Total 575 ml 600 ml Balance 625 ml 214.6 ml Free Water 200 ml 100 ml IV Total 280 ml 114.6 ml Tube Feeding 720 ml 600 ml Output Urine Total 575 ml 600 ml General Appearance: WD/WN HEENT: normocephalic, atraumatic, status post trach Respiratory/Chest: chest wall non-tender, lungs clear Cardiovascular: no JVD Abdomen: soft, non tender Extremities: no cyanosis Skin: no rash Microbiology Date/Time Source Procedure Growth Status 12/25/16 04:00 Rectum VRE Culture - Final Enterococcus Faecalis - Vre Complete Laboratory Tests 12/26/16 15:15: Phosphorus Level 2.7, Magnesium Level 2.1 Current Medications Medications (Trade) Dose Ordered Sig/Dolly Route PRN Reason Start Time Stop Time Status Last Admin Dose Admin Acetaminophen (Tylenol) 650 mg Q4H PRN GT fever>100.5 12/26/16 09:00 01/25/17 08:59 Albuterol/ Ipratropium (DuoNeb 0.5-3(2.5)mg/3ml) 3 ml EVERY 4 HOURS PRN HHN Shortness of Breath 12/25/16 13:00 12/30/16 12:59 Amikacin Sulfate 1150 mg/Sodium Chloride 114.6 ml @ 114.6 mls/ hr Q36H IV 12/25/16 16:00 01/01/17 15:59 12/27/16 04:03 Ertapenem/Sodium Chloride (INVanz/Sodium Chloride) 55 ml @ 110 mls/hr Q24H IV 12/25/16 12:00 12/30/16 11:59 12/26/16 11:18 Heparin Sodium (Porcine) (Heparin 5000 units/ml) 5,000 units EVERY 12 HOURS SUBQ 12/25/16 21:00 01/24/17 20:59 12/27/16 08:16 Levetiracetam (Keppra) 1,000 mg DAILY GT 12/27/16 09:00 01/26/17 08:59 12/27/16 08:12 Levothyroxine Sodium (Synthroid) 150 mcg DAILY@0630 ORAL 12/26/16 06:30 01/25/17 06:29 12/27/16 06:06 Lorazepam (Ativan 2mg/ml 1ml) 2 mg EVERY 2 HOURS PRN IV For Anxiety 12/25/16 12:00 01/01/17 11:59 Morphine Sulfate (Morphine Sulfate) 4 mg EVERY 4 HOURS PRN IVP Severe Pain (Pain Scale 7-10) 12/25/16 13:00 01/01/17 12:59 Ondansetron HCl (Zofran) 4 mg Q6H PRN IVP Nausea & Vomiting 12/25/16 17:15 01/24/17 17:14 Pantoprazole (Protonix) 40 mg DAILY IVP 12/26/16 09:00 01/25/17 08:59 12/27/16 08:12 Polyethylene Glycol (Miralax) 17 gm DAILYPRN PRN ORAL Constipation 12/25/16 23:15 01/24/17 23:14 REY YAN Dec 27, 2016 12:02
--- NOTE | 2016-12-27 12:03 | Pulmonology Progress Note ---
Assessment/Plan Problems: (1) Septic shock (2) Seizure disorder as sequela of cerebrovascular accident (3) Ventilator dependence (4) Vegetative state (5) Feeding by G-tube Respiratory: monitor respiratory rate, adjust FIO2 Cardiac: continue pressors, continue to monitor HR/BP Renal: F/U I&O, keep IV fluid Infectious Disease: check cultures Gastrointestinal: continue feedings/current rate, hold feedings Endocrine: check TSH, check HgA1C, continue sliding scale insulin Hematologic: transfuse if hgb<8.5 Neurologic: PRN Ativan, PRN Morphine, keep patient comfortable Affect: PRN ativan Prophylaxis: Heparin Disposition: keep in ICU Notes Reviewed: welt maker, cardio Discussed with: nurses, consultants, case picker Subjective ROS Limited/Unobtainable: No HEENT: Repors: no symptoms Allergies: Coded Allergies: No Known Allergies (Unverified , 12/13/16) Objective Last 24 Hour Vital Signs Date Time Temp Pulse Resp B/P Pulse Ox O2 Delivery O2 Flow Rate FiO2 12/27/16 11:28 99.1 83 19 146/79 99 Mechanical Ventilator 12/27/16 10:55 88 19 40 12/27/16 08:43 55 18 40 12/27/16 08:11 98.5 76 18 153/78 100 Mechanical Ventilator 12/27/16 07:46 85 12/27/16 07:30 82 19 40 12/27/16 05:09 84 18 40 12/27/16 04:00 72 12/27/16 04:00 40 12/27/16 04:00 99.2 85 20 149/73 100 Mechanical Ventilator 12/27/16 03:08 95 19 40 12/27/16 01:30 79 18 40 12/27/16 00:00 75 12/27/16 00:00 40 12/26/16 23:51 99.6 86 18 140/88 100 Mechanical Ventilator 12/26/16 23:30 76 18 40 12/26/16 21:30 78 18 40 12/26/16 20:00 80 12/26/16 20:00 40 12/26/16 20:00 99.9 82 18 137/82 100 Mechanical Ventilator 12/26/16 19:30 85 21 40 12/26/16 16:58 79 18 40 12/26/16 16:00 98.9 84 18 148/76 100 Mechanical Ventilator 40 12/26/16 16:00 40 12/26/16 15:29 93 19 40 12/26/16 15:08 83 12/26/16 13:26 83 18 40 Intake and Output 12/26/16 12/27/16 19:00 07:00 Intake Total 1200 ml 814.6 ml Output Total 575 ml 600 ml Balance 625 ml 214.6 ml Free Water 200 ml 100 ml IV Total 280 ml 114.6 ml Tube Feeding 720 ml 600 ml Output Urine Total 575 ml 600 ml General Appearance: WD/WN HEENT: normocephalic, status post trach Respiratory/Chest: decreased breath sounds, crackles/rales Cardiovascular: normal peripheral pulses, regular rhythm Abdomen: soft, non tender, no organomegaly Extremities: no cyanosis Skin: no rash Microbiology Date/Time Source Procedure Growth Status 12/25/16 04:00 Rectum VRE Culture - Final Enterococcus Faecalis - Vre Complete Laboratory Tests 12/26/16 15:15: Phosphorus Level 2.7, Magnesium Level 2.1 Current Medications Medications (Trade) Dose Ordered Sig/Dolly Route PRN Reason Start Time Stop Time Status Last Admin Dose Admin Acetaminophen (Tylenol) 650 mg Q4H PRN GT fever>100.5 12/26/16 09:00 01/25/17 08:59 Albuterol/ Ipratropium (DuoNeb 0.5-3(2.5)mg/3ml) 3 ml EVERY 4 HOURS PRN HHN Shortness of Breath 12/25/16 13:00 12/30/16 12:59 Amikacin Sulfate 1150 mg/Sodium Chloride 114.6 ml @ 114.6 mls/ hr Q36H IV 12/25/16 16:00 01/01/17 15:59 12/27/16 04:03 Ertapenem/Sodium Chloride (INVanz/Sodium Chloride) 55 ml @ 110 mls/hr Q24H IV 12/25/16 12:00 12/30/16 11:59 12/26/16 11:18 Heparin Sodium (Porcine) (Heparin 5000 units/ml) 5,000 units EVERY 12 HOURS SUBQ 12/25/16 21:00 01/24/17 20:59 12/27/16 08:16 Levetiracetam (Keppra) 1,000 mg DAILY GT 12/27/16 09:00 01/26/17 08:59 12/27/16 08:12 Levothyroxine Sodium (Synthroid) 150 mcg DAILY@0630 ORAL 12/26/16 06:30 01/25/17 06:29 12/27/16 06:06 Lorazepam (Ativan 2mg/ml 1ml) 2 mg EVERY 2 HOURS PRN IV For Anxiety 12/25/16 12:00 01/01/17 11:59 Morphine Sulfate (Morphine Sulfate) 4 mg EVERY 4 HOURS PRN IVP Severe Pain (Pain Scale 7-10) 12/25/16 13:00 01/01/17 12:59 Ondansetron HCl (Zofran) 4 mg Q6H PRN IVP Nausea & Vomiting 12/25/16 17:15 01/24/17 17:14 Pantoprazole (Protonix) 40 mg DAILY IVP 12/26/16 09:00 01/25/17 08:59 12/27/16 08:12 Polyethylene Glycol (Miralax) 17 gm DAILYPRN PRN ORAL Constipation 12/25/16 23:15 01/24/17 23:14 REY YAN Dec 27, 2016 12:03
--- NOTE | 2016-12-27 12:39 | Infectious Diseases Prog Note ---
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 Her ACB bloodstream isolate is a less drug resistant isolate than that isolated from sacrum, and a carabpenem will cover her blood, urine, and sputum isolates. Sepsis/septic shock, SP Leukocytosis worsening. Bactermia : ABC Probable urinary tract infection/pyuria UCx: Proteus Probable pneumonia Scx Serratia Sacral wound : not infected Wnd Cx : staph and MDR ACB: Colonizer Seizure disorder Anoxic brain injury Cerebrovascular accident Anemia Hyperlipidemia Hypothyroidism Chronic kidney disease Status post trach and PEG History of ventilator-dependent respiratory failure Gastroesophageal reflux disease Diabetes PLAN: d/c IV amikacin and ertapenem now. Start Meropenem 1gm IV q8hr how (this is anti-ACB and anti-PSA dosing) surveillance blood cx in AM 7/4 SP vancomycin d# 2 Monitor leukocytosis with daily CBC. Monitor BMP. Monitor cultures (wound, blood, sputum, urine). Continue the patient on respiratory support. Monitor chest x-ray Subjective Allergies: Coded Allergies: No Known Allergies (Unverified , 12/13/16) Objective Vital Signs Last 24 Hour Vital Signs Date Time Temp Pulse Resp B/P Pulse Ox O2 Delivery O2 Flow Rate FiO2 12/27/16 12:00 40 12/27/16 11:28 99.1 83 19 146/79 99 Mechanical Ventilator 12/27/16 10:55 88 19 40 12/27/16 08:43 55 18 40 12/27/16 08:11 98.5 76 18 153/78 100 Mechanical Ventilator 12/27/16 08:00 40 12/27/16 07:46 85 12/27/16 07:30 82 19 40 12/27/16 05:09 84 18 40 12/27/16 04:00 72 12/27/16 04:00 40 12/27/16 04:00 99.2 85 20 149/73 100 Mechanical Ventilator 12/27/16 03:08 95 19 40 12/27/16 01:30 79 18 40 12/27/16 00:00 75 12/27/16 00:00 40 12/26/16 23:51 99.6 86 18 140/88 100 Mechanical Ventilator 12/26/16 23:30 76 18 40 12/26/16 21:30 78 18 40 12/26/16 20:00 80 12/26/16 20:00 40 12/26/16 20:00 99.9 82 18 137/82 100 Mechanical Ventilator 12/26/16 19:30 85 21 40 12/26/16 16:58 79 18 40 12/26/16 16:00 98.9 84 18 148/76 100 Mechanical Ventilator 40 12/26/16 16:00 40 12/26/16 15:29 93 19 40 12/26/16 15:08 83 12/26/16 13:26 83 18 40 Height (Feet): 5 Height (Inches): 9.00 Weight (Pounds): 172 HEENT: anicteric Respiratory/Chest: rhonchi - bilaterally Cardiovascular: normal peripheral pulses, regular rhythm Abdomen: soft, non tender Extremities: no edema Skin: no rash Labs Test 12/24/16 16:00 12/25/16 04:00 12/25/16 08:02 12/25/16 16:30 Amikacin Level Trough 11.6 ug/mL (10.0-15.0) White Blood Count 14.2 K/UL (4.8-10.8) Red Blood Count 2.87 M/UL (4.70-6.10) Hemoglobin 9.4 G/DL (14.2-18.0) Hematocrit 27.8 % (42.0-52.0) Mean Corpuscular Volume 97 FL (80-99) Mean Corpuscular Hemoglobin 32.6 PG (27.0-31.0) Mean Corpuscular Hemoglobin Concent 33.7 G/DL (32.0-36.0) Red Cell Distribution Width 14.2 % (11.6-14.8) Platelet Count 173 K/UL (150-450) Mean Platelet Volume 7.8 FL (6.5-10.1) Neutrophils (%) (Auto) % (45.0-75.0) Lymphocytes (%) (Auto) % (20.0-45.0) Monocytes (%) (Auto) % (1.0-10.0) Eosinophils (%) (Auto) % (0.0-3.0) Basophils (%) (Auto) % (0.0-2.0) Differential Total Cells Counted 100 Neutrophils % (Manual) 83 % (45-75) Lymphocytes % (Manual) 10 % (20-45) Monocytes % (Manual) 6 % (1-10) Eosinophils % (Manual) 1 % (0-3) Basophils % (Manual) 0 % (0-2) Band Neutrophils 0 % (0-8) Platelet Estimate Adequate Platelet Morphology Normal Anisocytosis 1+ Prothrombin Time 12.1 SEC (9.30-11.50) Prothromb Time International Ratio 1.2 (0.9-1.1) Activated Partial Thromboplast Time 40 SEC (23-33) Sodium Level 142 mEQ/L (135-145) Potassium Level 3.7 mEQ/L (3.4-4.9) Chloride Level 105 mEQ/L (98-107) Carbon Dioxide Level 21 mEQ/L (20-30) Anion Gap 16 (5-15) Blood Urea Nitrogen 15 mg/dL (7-23) Creatinine 0.6 mg/dL (0.7-1.2) Estimat Glomerular Filtration Rate > 60 mL/min (>60) Glucose Level 125 mg/dL (74-106) Uric Acid 5.9 mg/dL (3.0-7.5) Calcium Level 7.9 mg/dL (8.6-10.2) Phosphorus Level 1.8 mg/dL (2.5-4.8) Magnesium Level 1.8 mg/dL (1.7-2.5) Total Bilirubin 0.4 mg/dL (0.0-1.2) Aspartate Amino Transf (AST/SGOT) 43 U/L (5-40) Alanine Aminotransferase (ALT/SGPT) 27 U/L (3-41) Alkaline Phosphatase 80 U/L (40-129) C-Reactive Protein, Quantitative 25.4 mg/dL (< 0.5) Pro-B-Type Natriuretic Peptide 1025 pg/mL (0-125) Total Protein 6.5 g/dL (6.6-8.7) Albumin 2.5 g/dL (3.5-5.2) Globulin 4.0 g/dL Albumin/Globulin Ratio 0.6 (1.0-2.7) Thyroid Stimulating Hormone (TSH) 2.840 uIU/mL (0.300-4.500) Arterial Blood pH 7.377 (7.350-7.450) Arterial Blood Partial Pressure CO2 34.4 mmHg (35.0-45.0) Arterial Blood Partial Pressure O2 164.2 mmHg (75.0-100.0) Arterial Blood HCO3 19.8 mmol/L (22.0-26.0) Arterial Blood Oxygen Saturation 98.3 % (92.0-98.0) Arterial Blood Base Excess -4.8 Karson Test Positive Iron Level 25 ug/dL (59-158) Total Iron Binding Capacity 156 ug/dL (250-400) Percent Iron Saturation 16 % (15-50) Unsaturated Iron Binding 131 ug/dL (112-346) Ferritin 304 ng/mL (10-230) Vitamin B12 Level 2000 pg/mL (211-946) Folate 13.9 ng/mL (>3.0) Test 12/26/16 03:50 12/26/16 15:15 White Blood Count 14.2 K/UL (4.8-10.8) Red Blood Count 2.92 M/UL (4.70-6.10) Hemoglobin 9.3 G/DL (14.2-18.0) Hematocrit 29.4 % (42.0-52.0) Mean Corpuscular Volume 101 FL (80-99) Mean Corpuscular Hemoglobin 32.0 PG (27.0-31.0) Mean Corpuscular Hemoglobin Concent 31.7 G/DL (32.0-36.0) Red Cell Distribution Width 14.9 % (11.6-14.8) Platelet Count 180 K/UL (150-450) Mean Platelet Volume 6.5 FL (6.5-10.1) Neutrophils (%) (Auto) 84.1 % (45.0-75.0) Lymphocytes (%) (Auto) 8.5 % (20.0-45.0) Monocytes (%) (Auto) 5.2 % (1.0-10.0) Eosinophils (%) (Auto) 1.1 % (0.0-3.0) Basophils (%) (Auto) 1.2 % (0.0-2.0) Sodium Level 143 mEQ/L (135-145) Potassium Level 4.9 mEQ/L (3.4-4.9) Chloride Level 113 mEQ/L (98-107) Carbon Dioxide Level 17 mEQ/L (20-30) Anion Gap 13 (5-15) Blood Urea Nitrogen 13 mg/dL (7-23) Creatinine 0.7 mg/dL (0.7-1.2) Estimat Glomerular Filtration Rate > 60 mL/min (>60) Glucose Level 87 mg/dL (74-106) Calcium Level 7.9 mg/dL (8.6-10.2) Total Bilirubin 0.3 mg/dL (0.0-1.2) Aspartate Amino Transf (AST/SGOT) 43 U/L (5-40) Alanine Aminotransferase (ALT/SGPT) 29 U/L (3-41) Alkaline Phosphatase 87 U/L (40-129) Pro-B-Type Natriuretic Peptide 837 pg/mL (0-125) Total Protein 6.4 g/dL (6.6-8.7) Albumin 2.4 g/dL (3.5-5.2) Globulin 4.0 g/dL Albumin/Globulin Ratio 0.6 (1.0-2.7) Phosphorus Level 2.7 mg/dL (2.5-4.8) Magnesium Level 2.1 mg/dL (1.7-2.5) Microbiology Date/Time Source Procedure Growth Status 12/25/16 04:00 Rectum VRE Culture - Final Enterococcus Faecalis - Vre Complete Blood cultures: PATIENT: SARAVANAN MORRIS LOC: 2W U # : [id number] AGE/SX: 66/M ROOM: 239 REG : 12/23/[address]: REY YAN : 1950 BED: 2 DIS : STATUS: ADM IN TLOC: SPEC #: [id number] XOCHILT: 12/23/16-2019 STATUS: COMP REQ #: [id number] RECD: 12/23/[address]: Jayce Ny SOURCE: BLOOD ENTR: 12/23/[address]: PATSY: ORDERED: BLOOD CULT COMMENTS: Source Description: PERIP Procedure Result CULTURE BLOOD Final AEROBIC BOTTLE GRAM NEG RODS SEEN CALLED TO AND READ BACK BY JUANJOSE Fraire @ [phone] AND RN WILL CONTACT DR RAMIRES 12/25/16 CT Organism 1 ACINETOBACTER BAUMANNII COMPLX MIRIAM CPLX M.I.C. RX --------- --- CEFTAZIDIME >=64 R CEFTRIAXONE >=64 R CEFEPIME >=64 R CIPROFLOXACIN >=4 R GENTAMICIN >=16 R LEVOFLOXACIN 2 S IMIPENEM 4 S TIGECYCLINE <=0.5 S TRIMETHOPRIM/SULFA 160 R AMIKACIN >=64 R Sacral wound cx: Patient: SARAVANAN MORRIS Location: [address] [place] [address] (Cont.) Specimen: [id number] Collected: 12/24/16 Received: 12/24/16 (Continued) Procedure Result WOUND CULTURE Final (continued) ACIBCX-MDR ACIBCX-MDR STA AUR MR M.I.C. RX M.I.C. RX M.I.C. RX --------- --- --------- --- --------- --- CEFTAZIDIME >=64 R CEFTRIAXONE >=64 R CEFEPIME >=64 R CIPROFLOXACIN >=4 R >=8 R CLINDAMYCIN <=0.25 S ERYTHROMYCIN <=0.25 S GENTAMICIN 4 S 8 I LEVOFLOXACIN >=8 R >=8 R IMIPENEM 8 I COLISTIN 0.75 S OXACILLIN >=4 R BENZYLPENICILLIN >=0.5 R TETRACYCLINE >=16 R TRIMETHOPRIM/SULFA 160 R <=10 S VANCOMYCIN 1 S AMIKACIN >=64 R POLYMYXIN B 1.5 S MINOCYCLINE 6 I RIFAMPIN <=0.5 S SOURCE: SP INDUCED ENTR: 12/24/[address] [facility] [address]: KENDRICK RAMIRES M.D.C: LANI WEBSTER ABRAHAM ORDERED: SPUTUM CULT&GS Procedure Result GRAM STAIN Final GRAM STAIN RESULT MODERATE WHITE BLOOD CELLS NO EPITHELIAL CELLS MODERATE GRAM NEGATIVE RODS SPUTUM CULTURE Final Organism 1 SERRATIA MARCESCENS GROWTH: 2+ SER MARCES M.I.C. RX --------- --- CEFAZOLIN >=64 R CEFTAZIDIME S CEFTRIAXONE S CEFEPIME <=1 S CIPROFLOXACIN 1 S ERTAPENEM 1 S GENTAMICIN >=16 R LEVOFLOXACIN 1 S IMIPENEM 1 S TRIMETHOPRIM/SULFA <=20 S AMIKACIN >=64 R PIPERACILLIN/TAZOBACTAM 16 S SPEC #: [id number] XOCHILT: 12/23/16 STATUS: RES REQ #: [id number] RECD: 12/23/[address]: Jayce Ny SOURCE: URINE CC ENTR: 12/23/16 ELIZABETH AYALA: PATSYC: ORDERED: URINE CULT Procedure Result URINE CULTURE Preliminary Organism 1 PROTEUS MIRABILIS COLONY COUNT: >100,000 CFU/ML Organism 2 GRAM NEGATIVE BACILLUS 2 COLONY COUNT: >100,000 CFU/ML PRO MIRABI M.I.C. RX --------- --- AMPICILLIN >=32 R CEFAZOLIN >=64 R CEFTAZIDIME 2 R CEFTRIAXONE >=64 R CEFEPIME 8 R CIPROFLOXACIN >=4 R ERTAPENEM <=0.5 S GENTAMICIN >=16 R LEVOFLOXACIN 2 S NITROFURANTOIN R TRIMETHOPRIM/SULFA >=320 R AMIKACIN <=2 S PIPERACILLIN/TAZOBACTAM <=4 S Laboratory Tests Test 12/26/16 15:15 Phosphorus Level 2.7 mg/dL (2.5-4.8) Magnesium Level 2.1 mg/dL (1.7-2.5) Current Medications Medications (Trade) Dose Ordered Sig/Dolly Route PRN Reason Start Time Stop Time Status Last Admin Dose Admin Acetaminophen (Tylenol) 650 mg Q4H PRN GT fever>100.5 12/26/16 09:00 01/25/17 08:59 Albuterol/ Ipratropium (DuoNeb 0.5-3(2.5)mg/3ml) 3 ml EVERY 4 HOURS PRN HHN Shortness of Breath 12/25/16 13:00 12/30/16 12:59 Amikacin Sulfate 1150 mg/Sodium Chloride 114.6 ml @ 114.6 mls/ hr Q36H IV 12/25/16 16:00 01/01/17 15:59 12/27/16 04:03 Ertapenem/Sodium Chloride (INVanz/Sodium Chloride) 55 ml @ 110 mls/hr Q24H IV 12/25/16 12:00 12/30/16 11:59 12/26/16 11:18 Heparin Sodium (Porcine) (Heparin 5000 units/ml) 5,000 units EVERY 12 HOURS SUBQ 12/25/16 21:00 01/24/17 20:59 12/27/16 08:16 Levetiracetam (Keppra) 1,000 mg DAILY GT 12/27/16 09:00 01/26/17 08:59 12/27/16 08:12 Levothyroxine Sodium (Synthroid) 150 mcg DAILY@0630 ORAL 12/26/16 06:30 01/25/17 06:29 12/27/16 06:06 Lorazepam (Ativan 2mg/ml 1ml) 2 mg EVERY 2 HOURS PRN IV For Anxiety 12/25/16 12:00 01/01/17 11:59 Morphine Sulfate (Morphine Sulfate) 4 mg EVERY 4 HOURS PRN IVP Severe Pain (Pain Scale 7-10) 12/25/16 13:00 01/01/17 12:59 Ondansetron HCl (Zofran) 4 mg Q6H PRN IVP Nausea & Vomiting 12/25/16 17:15 01/24/17 17:14 Pantoprazole (Protonix) 40 mg DAILY IVP 12/26/16 09:00 01/25/17 08:59 12/27/16 08:12 Polyethylene Glycol (Miralax) 17 gm DAILYPRN PRN ORAL Constipation 12/25/16 23:15 01/24/17 23:14 Indio Durand M.D. 6, 2017 12:39
[2016-12-27] MEDS: Meropenem 1 GM in NS 110 ML IVPB SCH ×2 (14:57→21:03)
[2016-12-27 16:00] VITALS: BP 146/85
[2016-12-27 20:00] VITALS: BP 151/93
[2016-12-28] VITALS (7 sets, daily range): BP systolic 110–148; BP diastolic 55–89
[2016-12-28] MEDS ORDERED: Miralax 17gm pkt GT PRN (02:30)
[2016-12-28] MEDS: Meropenem 1 GM in NS 110 ML IVPB SCH ×2 (05:41→15:26)
[2016-12-28 06:07] LABS: BASOPHILS % (AUTO) 0.9 % (0.0-2.0); EOSINOPHILS % (AUTO) 5.6 % (0.0-3.0); LYMPHOCYTES % (AUTO) 24.3 % (20.0-45.0); MEAN CORPUSCULAR HEMOGLOBIN 31.5 PG (27.0-31.0); MEAN CORPUSCULAR HGB CONC 32.9 G/DL (32.0-36.0); MEAN CORPUSCULAR VOLUME 96 FL (80-99); MEAN PLATELET VOLUME 6.9 FL (6.5-10.1); MONOCYTES % (AUTO) 10.1 % (1.0-10.0); NEUTROPHILS % (AUTO) 59.2 % (45.0-75.0); PLATELET COUNT 234 K/UL (150-450); RED BLOOD COUNT 3.17 M/UL (4.70-6.10); RED CELL DISTRIBUTION WIDTH 13.8 % (11.6-14.8); WHITE BLOOD COUNT 6.3 K/UL (4.8-10.8)
[2016-12-28 07:00] LABS: ALANINE AMINOTRANSFERASE 23 U/L (3-41); ALBUMIN/GLOBULIN RATIO 0.8 (1.0-2.7); ANION GAP 12 (5-15); ASPARTATE AMINO TRANSFERASE 29 U/L (5-40); CALCIUM 8.8 mg/dL (8.6-10.2); CARBON DIOXIDE 24 mEQ/L (20-30); CHLORIDE 106 mEQ/L (98-107); CREATININE 0.7 mg/dL (0.7-1.2); GLOMERULAR FILTRATION RATE > 60 mL/min (>60); HEMOLYSIS 2; PHOSPHORUS 3.9 mg/dL (2.5-4.8); SODIUM 142 mEQ/L (135-145); TOTAL PROTEIN 6.4 g/dL (6.6-8.7)
[2016-12-28] MEDS: levETIRAcetam 500mg/5ml Liquid GT SCH (08:30)
[2016-12-28] MEDS: Pantoprazole Inj IVP SCH (08:31)
[2016-12-28] MEDS: Heparin 5000 units/ml inj SUBQ SCH (08:33)
--- NOTE | 2016-12-28 08:49 | General Progress Note ---
Assessment/Plan Status: stable - from renal stand point Assessment/Plan status; (1) Septic shock , low BP being on pressor leading to Oliguria and renal failure (2) Seizure disorder as sequela of cerebrovascular accident (3) Ventilator dependence (4) Vegetative state (5) Feeding by G-tube Plan: Antibiotics- Phos supplement as needed Vent support- Monitor renal parameters and urine out put Avoid nephrotoxics discussed with RN Subjective ROS Limited/Unobtainable: Yes Allergies: Coded Allergies: No Known Allergies (Unverified , 12/13/16) Objective Last 24 Hour Vital Signs Date Time Temp Pulse Resp B/P Pulse Ox O2 Delivery O2 Flow Rate FiO2 12/28/16 08:25 98.5 63 18 130/78 100 Mechanical Ventilator 40 12/28/16 07:11 52 18 40 12/28/16 05:20 62 18 40 12/28/16 04:00 40 12/28/16 04:00 47 12/28/16 03:33 97.9 65 20 141/89 100 Mechanical Ventilator 40 12/28/16 02:54 69 18 40 12/28/16 00:40 64 18 40 12/28/16 00:00 99.0 63 20 148/75 100 Mechanical Ventilator 40 12/28/16 00:00 67 12/28/16 00:00 40 12/27/16 23:18 66 18 40 12/27/16 21:15 65 18 40 12/27/16 21:00 40 12/27/16 20:00 65 12/27/16 20:00 98.2 80 20 151/93 100 Mechanical Ventilator 40 12/27/16 18:59 66 18 40 12/27/16 16:53 77 18 40 12/27/16 16:00 40 12/27/16 16:00 98.2 75 18 146/85 100 Mechanical Ventilator 12/27/16 15:22 78 21 40 12/27/16 15:08 70 12/27/16 12:30 65 18 40 12/27/16 12:00 40 12/27/16 11:51 76 12/27/16 11:28 99.1 83 19 146/79 99 Mechanical Ventilator 12/27/16 10:55 88 19 40 Intake and Output 12/27/16 12/28/16 19:00 07:00 Intake Total 1080 ml 1091.93 ml Output Total 800 ml 750 ml Balance 280 ml 341.93 ml Free Water 150 ml IV Total 110 ml 461.93 ml Tube Feeding 720 ml 600 ml Other 100 ml 30 ml Output Urine Total 800 ml 750 ml Laboratory Tests 12/28/16 05:00: White Blood Count 6.3, Red Blood Count 3.17L, Hemoglobin 10.0L, Hematocrit 30.3L , Mean Corpuscular Volume 96, Mean Corpuscular Hemoglobin 31.5H, Mean Corpuscular Hemoglobin Concent 32.9, Red Cell Distribution Width 13.8, Platelet Count 234, Mean Platelet Volume 6.9, Neutrophils (%) (Auto) 59.2, Lymphocytes (% ) (Auto) 24.3, Monocytes (%) (Auto) 10.1H, Eosinophils (%) (Auto) 5.6H, Basophils (%) (Auto) 0.9, Sodium Level 142, Potassium Level 4.0, Chloride Level 106, Carbon Dioxide Level 24, Anion Gap 12, Blood Urea Nitrogen 15, Creatinine 0.7, Estimat Glomerular Filtration Rate > 60, Glucose Level 118H, Calcium Level 8.8, Phosphorus Level 3.9, Magnesium Level 2.0, Total Bilirubin 0.2, Aspartate Amino Transf (AST/SGOT) 29, Alanine Aminotransferase (ALT/SGPT) 23, Alkaline Phosphatase 75, Total Protein 6.4L, Albumin 2.9L, Globulin 3.5, Albumin/ Globulin Ratio 0.8L Height (Feet): 5 Height (Inches): 9.00 Weight (Pounds): 172 General Appearance: no apparent distress Objective other PE not changed LANI WEBSTER Dec 28, 2016 08:49
[2016-12-28] MEDS ORDERED: LORazepam Inj 2mg/ml 1ml IV PRN (11:45)
--- NOTE | 2016-12-28 11:52 | Pulmonology Progress Note ---
Assessment/Plan Problems: (1) Septic shock (2) Seizure disorder as sequela of cerebrovascular accident (3) Ventilator dependence (4) Vegetative state (5) Feeding by G-tube Assessment/Plan: wbc normal, afebrile, can go to NS to finsih the course of the abx Respiratory: monitor respiratory rate, adjust FIO2, CXR Cardiac: continue to monitor HR/BP Renal: F/U I&O, keep IV fluid, check electrolytes Infectious Disease: check cultures Gastrointestinal: continue feedings/current rate Endocrine: monitor blood sugar, check TSH, continue sliding scale insulin Hematologic: monitor H/H, transfuse if hgb<8.5 Neurologic: PRN Ativan, keep patient comfortable Affect: PRN ativan Disposition: keep in ICU Notes Reviewed: glove cleaner, cardio, renal Discussed with: nurses, consultants, employment case manager Subjective ROS Limited/Unobtainable: Yes Constitutional: Reports: no symptoms Respiratory: Reports: no symptoms Allergies: Coded Allergies: No Known Allergies (Unverified , 12/13/16) Objective Last 24 Hour Vital Signs Date Time Temp Pulse Resp B/P Pulse Ox O2 Delivery O2 Flow Rate FiO2 12/28/16 11:40 97.8 64 18 118/63 100 Mechanical Ventilator 40 12/28/16 11:02 49 18 40 12/28/16 08:45 71 18 40 12/28/16 08:25 98.5 63 18 130/78 100 Mechanical Ventilator 40 12/28/16 08:00 40 12/28/16 07:47 50 12/28/16 07:11 52 18 40 12/28/16 05:20 62 18 40 12/28/16 04:00 40 12/28/16 04:00 47 12/28/16 03:33 97.9 65 20 141/89 100 Mechanical Ventilator 40 12/28/16 02:54 69 18 40 12/28/16 00:40 64 18 40 12/28/16 00:00 99.0 63 20 148/75 100 Mechanical Ventilator 40 12/28/16 00:00 67 12/28/16 00:00 40 12/27/16 23:18 66 18 40 12/27/16 21:15 65 18 40 12/27/16 21:00 40 12/27/16 20:00 65 12/27/16 20:00 98.2 80 20 151/93 100 Mechanical Ventilator 40 12/27/16 18:59 66 18 40 12/27/16 16:53 77 18 40 12/27/16 16:00 40 12/27/16 16:00 98.2 75 18 146/85 100 Mechanical Ventilator 12/27/16 15:22 78 21 40 12/27/16 15:08 70 12/27/16 12:30 65 18 40 12/27/16 12:00 40 Intake and Output 12/27/16 12/28/16 19:00 07:00 Intake Total 1080 ml 1091.93 ml Output Total 800 ml 750 ml Balance 280 ml 341.93 ml Free Water 150 ml IV Total 110 ml 461.93 ml Tube Feeding 720 ml 600 ml Other 100 ml 30 ml Output Urine Total 800 ml 750 ml General Appearance: WD/WN HEENT: normocephalic, atraumatic Respiratory/Chest: chest wall non-tender, lungs clear Cardiovascular: normal peripheral pulses, normal rate Abdomen: normal bowel sounds, no organomegaly Extremities: no cyanosis Skin: no rash, no lesions Laboratory Tests 12/28/16 05:00: White Blood Count 6.3, Red Blood Count 3.17L, Hemoglobin 10.0L, Hematocrit 30.3L , Mean Corpuscular Volume 96, Mean Corpuscular Hemoglobin 31.5H, Mean Corpuscular Hemoglobin Concent 32.9, Red Cell Distribution Width 13.8, Platelet Count 234, Mean Platelet Volume 6.9, Neutrophils (%) (Auto) 59.2, Lymphocytes (% ) (Auto) 24.3, Monocytes (%) (Auto) 10.1H, Eosinophils (%) (Auto) 5.6H, Basophils (%) (Auto) 0.9, Sodium Level 142, Potassium Level 4.0, Chloride Level 106, Carbon Dioxide Level 24, Anion Gap 12, Blood Urea Nitrogen 15, Creatinine 0.7, Estimat Glomerular Filtration Rate > 60, Glucose Level 118H, Calcium Level 8.8, Phosphorus Level 3.9, Magnesium Level 2.0, Total Bilirubin 0.2, Aspartate Amino Transf (AST/SGOT) 29, Alanine Aminotransferase (ALT/SGPT) 23, Alkaline Phosphatase 75, Total Protein 6.4L, Albumin 2.9L, Globulin 3.5, Albumin/ Globulin Ratio 0.8L Current Medications Medications (Trade) Dose Ordered Sig/Dolly Route PRN Reason Start Time Stop Time Status Last Admin Dose Admin Acetaminophen (Tylenol) 650 mg Q4H PRN GT fever>100.5 12/26/16 09:00 01/25/17 08:59 Albuterol/ Ipratropium (DuoNeb 0.5-3(2.5)mg/3ml) 3 ml EVERY 4 HOURS PRN HHN Shortness of Breath 12/25/16 13:00 12/30/16 12:59 Heparin Sodium (Porcine) (Heparin 5000 units/ml) 5,000 units EVERY 12 HOURS SUBQ 12/25/16 21:00 01/24/17 20:59 12/28/16 08:33 Levetiracetam 1000 mg 1,000 mg DAILY GT 12/27/16 09:00 01/26/17 08:59 12/28/16 08:30 Levothyroxine Sodium (Synthroid) 150 mcg DAILY@0630 GT 12/28/16 06:30 01/27/17 06:29 12/28/16 05:41 Lorazepam (Ativan 2mg/ml 1ml) 1 mg EVERY 2 HOURS PRN IV For Anxiety 12/28/16 11:45 01/04/17 11:44 UNV Meropenem/Sodium Chloride (Merrem/Sodium Chloride) 110 ml @ 220 mls/hr Q8HR IVPB 12/27/16 14:00 01/10/17 13:59 12/28/16 05:41 Morphine Sulfate (Morphine Sulfate) 4 mg EVERY 4 HOURS PRN IVP Severe Pain (Pain Scale 7-10) 12/25/16 13:00 01/01/17 12:59 Ondansetron HCl (Zofran) 4 mg Q6H PRN IVP Nausea & Vomiting 12/25/16 17:15 01/24/17 17:14 Pantoprazole (Protonix) 40 mg DAILY IVP 12/26/16 09:00 01/25/17 08:59 12/28/16 08:31 Polyethylene Glycol (Miralax) 17 gm DAILYPRN PRN GT Constipation 12/28/16 02:30 01/27/17 02:29 REY YAN Dec 28, 2016 11:52
--- NOTE | 2016-12-28 12:35 | Infectious Diseases Prog Note ---
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 Her ACB bloodstream isolate is a less drug resistant isolate than that isolated from sacrum, and a meropenem will cover her blood, urine, and sputum isolates. Ertapenem not reliable for Acinetobacter. She has responded on day 1 of 14 IV meropenem, with prompt resolution of her leukocytosis, which had previously been persistent, and she had remained afebrile. Sepsis/septic shock, resolved Leukocytosis, resolved. Bactermia : Acinetobacer Probable urinary tract infection/pyuria UCx: Proteus Probable pneumonia Scx Serratia Sacral wound : not infected Wnd Cx : staph and MDR ACB: Colonizer Seizure disorder Anoxic brain injury Cerebrovascular accident Anemia Hyperlipidemia Hypothyroidism Chronic kidney disease Status post trach and PEG History of ventilator-dependent respiratory failure Gastroesophageal reflux disease Diabetes PLAN: Continue Meropenem 1gm IV q8hr d#1 or #14. final day of treatment will be [id number]. surveillance blood cx sent last night ngtd, monitor, but expect them now to be negative on appropriate definitive therapy and leukocytosis resolved. 12/25 SP vancomycin d# 2 7/ s/p amikacin and ertapenem d#2. Monitor CBC Monitor BMP. Monitor surveillance blood cx. Continue the patient on respiratory support. Monitor chest x-ray dispo per primary/pulm service but okay from ID perspective. Subjective Allergies: Coded Allergies: No Known Allergies (Unverified , 12/13/16) Objective Vital Signs Last 24 Hour Vital Signs Date Time Temp Pulse Resp B/P Pulse Ox O2 Delivery O2 Flow Rate FiO2 12/28/16 11:49 97.5 82 21 110/55 97 Mechanical Ventilator 40 12/28/16 11:40 97.8 64 18 118/63 100 Mechanical Ventilator 40 12/28/16 11:02 49 18 40 12/28/16 08:45 71 18 40 12/28/16 08:25 98.5 63 18 130/78 100 Mechanical Ventilator 40 12/28/16 08:00 40 12/28/16 07:47 50 12/28/16 07:11 52 18 40 12/28/16 05:20 62 18 40 12/28/16 04:00 40 12/28/16 04:00 47 12/28/16 03:33 97.9 65 20 141/89 100 Mechanical Ventilator 40 12/28/16 02:54 69 18 40 12/28/16 00:40 64 18 40 12/28/16 00:00 99.0 63 20 148/75 100 Mechanical Ventilator 40 12/28/16 00:00 67 12/28/16 00:00 40 12/27/16 23:18 66 18 40 12/27/16 21:15 65 18 40 12/27/16 21:00 40 12/27/16 20:00 65 12/27/16 20:00 98.2 80 20 151/93 100 Mechanical Ventilator 40 12/27/16 18:59 66 18 40 12/27/16 16:53 77 18 40 12/27/16 16:00 40 12/27/16 16:00 98.2 75 18 146/85 100 Mechanical Ventilator 12/27/16 15:22 78 21 40 12/27/16 15:08 70 Height (Feet): 5 Height (Inches): 9.00 Weight (Pounds): 172 General Appearance: no acute distress HEENT: anicteric Respiratory/Chest: lungs clear Cardiovascular: normal rate Abdomen: soft, non tender Extremities: no cyanosis Skin: no rash Laboratory Tests Test 12/28/16 05:00 White Blood Count 6.3 K/UL (4.8-10.8) Red Blood Count 3.17 M/UL (4.70-6.10) L Hemoglobin 10.0 G/DL (14.2-18.0) L Hematocrit 30.3 % (42.0-52.0) L Mean Corpuscular Volume 96 FL (80-99) Mean Corpuscular Hemoglobin 31.5 PG (27.0-31.0) H Mean Corpuscular Hemoglobin Concent 32.9 G/DL (32.0-36.0) Red Cell Distribution Width 13.8 % (11.6-14.8) Platelet Count 234 K/UL (150-450) Mean Platelet Volume 6.9 FL (6.5-10.1) Neutrophils (%) (Auto) 59.2 % (45.0-75.0) Lymphocytes (%) (Auto) 24.3 % (20.0-45.0) Monocytes (%) (Auto) 10.1 % (1.0-10.0) H Eosinophils (%) (Auto) 5.6 % (0.0-3.0) H Basophils (%) (Auto) 0.9 % (0.0-2.0) Sodium Level 142 mEQ/L (135-145) Potassium Level 4.0 mEQ/L (3.4-4.9) Chloride Level 106 mEQ/L (98-107) Carbon Dioxide Level 24 mEQ/L (20-30) Anion Gap 12 (5-15) Blood Urea Nitrogen 15 mg/dL (7-23) Creatinine 0.7 mg/dL (0.7-1.2) Estimat Glomerular Filtration Rate > 60 mL/min (>60) Glucose Level 118 mg/dL (74-106) H Calcium Level 8.8 mg/dL (8.6-10.2) Phosphorus Level 3.9 mg/dL (2.5-4.8) Magnesium Level 2.0 mg/dL (1.7-2.5) Total Bilirubin 0.2 mg/dL (0.0-1.2) Aspartate Amino Transf (AST/SGOT) 29 U/L (5-40) Alanine Aminotransferase (ALT/SGPT) 23 U/L (3-41) Alkaline Phosphatase 75 U/L (40-129) Total Protein 6.4 g/dL (6.6-8.7) L Albumin 2.9 g/dL (3.5-5.2) L Globulin 3.5 g/dL Albumin/Globulin Ratio 0.8 (1.0-2.7) L Current Medications Medications (Trade) Dose Ordered Sig/Dolly Route PRN Reason Start Time Stop Time Status Last Admin Dose Admin Acetaminophen (Tylenol) 650 mg Q4H PRN GT fever>100.5 12/26/16 09:00 01/25/17 08:59 Albuterol/ Ipratropium (DuoNeb 0.5-3(2.5)mg/3ml) 3 ml EVERY 4 HOURS PRN HHN Shortness of Breath 12/25/16 13:00 12/30/16 12:59 Heparin Sodium (Porcine) (Heparin 5000 units/ml) 5,000 units EVERY 12 HOURS SUBQ 12/25/16 21:00 01/24/17 20:59 12/28/16 08:33 Levetiracetam 1000 mg 1,000 mg DAILY GT 12/27/16 09:00 01/26/17 08:59 12/28/16 08:30 Levothyroxine Sodium (Synthroid) 150 mcg DAILY@0630 GT 12/28/16 06:30 01/27/17 06:29 12/28/16 05:41 Lorazepam (Ativan 2mg/ml 1ml) 1 mg Q2H PRN IV For Anxiety 12/28/16 11:45 01/04/17 11:44 Meropenem/Sodium Chloride (Merrem/Sodium Chloride) 110 ml @ 220 mls/hr Q8HR IVPB 12/27/16 14:00 01/10/17 13:59 12/28/16 05:41 Morphine Sulfate (Morphine Sulfate) 4 mg EVERY 4 HOURS PRN IVP Severe Pain (Pain Scale 7-10) 12/25/16 13:00 01/01/17 12:59 Ondansetron HCl (Zofran) 4 mg Q6H PRN IVP Nausea & Vomiting 12/25/16 17:15 01/24/17 17:14 Pantoprazole (Protonix) 40 mg DAILY IVP 12/26/16 09:00 01/25/17 08:59 12/28/16 08:31 Polyethylene Glycol (Miralax) 17 gm DAILYPRN PRN GT Constipation 12/28/16 02:30 01/27/17 02:29 Indio Durand M.D. Dec 28, 2016 12:35
[2016-12-28] MEDS ORDERED: MEROPENEM1 GM IV (12:48)
[2016-12-28] MEDS ORDERED: Tubing IV Secondary IV ONE (16:52)
[2016-12-28] MEDS ORDERED: NS 275ml ONE (16:52)
--- NOTE | 2016-12-31 11:19 | Discharge Summary ---
Discharge Summary Hospital Course Date of Admission Dec 23, 2016 at 20:56 Date of Discharge Dec 28, 2016 at 19:55 Admitting Diagnosis SEVERE SEPSIS HPI Casandra Castañeda is a 66 year old male who was admitted on Dec 23, 2016 at 20: 56 for Severe Sepsis Hospital Course dc summary #[id number] Discharge Medications New Medications: Meropenem (Meropenem) 1 Gm Vial 1 GM IV Q8HR for 14 Days, VIAL Continued Medications: Levetiracetam (Keppra) 1,000 Mg Tablet 1000 MG ORAL DAILY, #30 TAB 0 Refills Levothyroxine Sodium* (Levothyroxine Sodium*) 150 Mcg Tablet 150 MCG ORAL DAILY, TAB Take in the morning on an empty stomach, at least 30 minutes before food. Prazosin Hcl* (Minipress*) 5 Mg Capsule 4 MG PO BEDTIME, CAP Discharge Condition Upon Discharge: stable Discharge Disposition Patient was discharged to SNF/Subacute Facility(03) Discharge Diagnoses: Discharge Instructions Discharge Instructions Special Instructions I have been assigned to complete a D/C Summary on this account. I was not involved in the patient management Mehnaz Rose NP ([place]anchte[place]) Dec 31, 2016 11:19
--- NOTE | 2016-12-31 13:29 | Cardiology Report ---
APPROVED REPORT EXAM: Two-dimensional and M-mode echocardiogram with Doppler and color Doppler. INDICATION LV function M-Mode DIMENSIONS IVSd1.3 (0.7-1.1cm)Left Atrium (MM)2.8 (1.6-4.0cm) LVDd4.8 (3.5-5.6cm)Aortic Root3.4 (2.0-3.7cm) PWd1.3 (0.7-1.1cm)Aortic Cusp Exc.1.7 (1.5-2.0cm) LVDs3.3 (2.5-4.0cm) PWs1.3 cm Other Information Technically limited study due to poor acoustical windows. Normal left ventricular chamber size, systolic function and wall motion to extent visualized. Left ventricular ejection fraction estimated to be 55 %. Study quality precludes accurate assessment of regional wall motion. Moderate left ventricular hypertrophy by 2-D. Anterior Echo-free space, may be due to pericardial fat or effusion. Left atrial size at upper limits of normal. Right cardiac chamber sizes are within normal limits. Focal aortic valve sclerosis with adequate cusp excursion. Thickened mitral valve leaflets with normal excursion. Mitral annulus and aortic root calcification. Pulmonic valve not well visualized. Normal tricuspid valve structure. IVC dilated at 2.4 cm with slight physiologic collapse suggestive of increased RA pressure. A color flow and spectral Doppler study was performed and revealed: Trace mitral regurgitation. Trace tricuspid regurgitation. Tricuspid systolic velocities suggests peak right ventricular systolic pressure of 17 mmHg.
--- NOTE | 2017-01-01 07:16 | Discharge Summary 2 SIG ---
DATE OF ADMISSION: 12/23/2016 DATE OF DISCHARGE: 12/28/2016 REASON FOR ADMISSION: This is a 66-year-old male with history of ventilator-dependent respiratory failure, tracheostomy, vegetative state, dysphagia, G-tube, and seizure disorder, was sent from the halfway facility due to the fever and tachycardia. In the emergency department, heart rate was between 150 to 155 and fever of 103. The patient was hypertensive. Chest x-ray revealed left lower lobe atelectasis versus pneumonia. The patient had leukocytosis, WBC 11.7. Urinalysis with gross evidence of UTI. Troponin negative. Lactic acid 3. Central line was placed in the emergency department for pressor. Blood pressure did not respond to the fluids. The patient was pancultured, started on empiric antibiotics, IV fluids, pressors, and transferred to the ICU for further management. ADMITTING DIAGNOSES: 1. Septic shock. 2. Sepsis. 3. Urinary tract infection. 4. Probable pneumonia. 5. Ventilator-dependent respiratory failure with tracheostomy status. 6. Dysphagia, gastrostomy tube. 7. Vegetative state. 8. Seizure disorder. 9. Sacral decubitus. HOSPITAL STAY: The patient was admitted initially to ICU. The patient was on pressors. When hemodynamically stable, pressors were discontinued. The patient was on the IV fluids and empiric antibiotics. ID closely followed. Sputum culture was positive for Serratia. Urine culture positive for Proteus and Pseudomonas aeruginosa MDR. Blood culture positive for Acinetobacter complex. Wound culture positive for Acinetobacter MDR and MRSA. However, according to the ID presales consultant, sacral wound is not grossly infected. Acinetobacter MDR and MRSA likely colonization. Surveillance repeated blood culture were negative. ID recommended additional two weeks of antibiotic at the halfway [facility]. Ventilator and tracheostomy care was provided. Pulmonary toilet provided. When off the pressor, the patient was transferred to [facility]. ABG was stable. After the patient was hemodynamically stable, the patient initially on 12/24/2016 shows ABG with acidosis and hypercapnia, however, after hemodynamically stable and settings increased , ABG was stable and settings were continued and titrated to keep saturation above 92%. Anemia workup revealed low iron, but high ferritin, high B12, and folate level, likely anemia of chronic disease. TSH was within normal limits. Continue current dose of hypothyroidism. Renal parameters and electrolytes were closely monitored and repleted as needed. DVT and GI prophylaxis provided. Bowel regimen instituted. Pain management was addressed. Wound care provided. Seizure precaution maintained. Keppra was continued. No seizure activity while in the hospital. Strict aspiration precautions were maintained. Started on G-tube feeding, able to tolerate. The patient was stable. ID and Nephrology closely followed. Animal Control Supervisor recommended to monitor renal parameters and avoid nephrotoxics. The patient was stable for discharge. DISCHARGE DIAGNOSES: 1. Septic shock, resolved. 2. Sepsis with bacteremia. 3. Bacteremia with Acinetobacter baumannii complex. 4. Urinary tract infection with Proteus mirabilis and Pseudomonas aeruginosa multidrug resistant. 5. Probable pneumonia with Serratia. 6. Acute hypoxemic hypercapnic respiratory failure on chronic respiratory failure. 7. Ventilator-dependent respiratory failure with tracheostomy status. 8. Dysphagia, gastrostomy tube. 9. Vegetative state. 10. Seizure disorder. 11. Anemia. 12. Hypothyroidism. 13. Sacral decubitus, present on admission. DISCHARGE MEDICATIONS: See medication reconciliation list. DISCHARGE INSTRUCTIONS: The patient discharged to halfway facility. FOLLOWUP: Follow up with medical doctor at the facility. Lea Nicolas M.D. I have been assigned to dictate discharge summary on this account and I was not involved in the patient's management. Mehnaz willshazel N.PLashonda AYALA: EKATERINA JOB#: [id number] CC:
== END 2016-12-28 19:55 | DRG 720 ==
LOC: EDBD 20:18 → EMR 20:32 → ICU 20:56 → EDBEDREQ 23:02 → ICU 12-24 01:00 → 2W 12-25 11:45
PROC: 5A1955Z Respiratory Ventilation, Greater than 96 Consecutive Hours (ICD-10-PCS; principal; 2016-12-23)
DX: A41.59 Other Gram-negative sepsis (principal); J96.21 Acute and chronic respiratory failure with hypoxia; R65.21 Severe sepsis with septic shock; G93.1 Anoxic brain damage, not elsewhere classified; L89.159 Pressure ulcer of sacral region, unspecified stage; J15.6 Pneumonia due to other Gram-negative bacteria; Z99.11 Dependence on respirator [ventilator] status; R40.3 Persistent vegetative state; I69.398 Other sequelae of cerebral infarction; G40.909 Epilepsy, unspecified, not intractable, without status epilepticus; Z43.0 Encounter for attention to tracheostomy; Z43.1 Encounter for attention to gastrostomy; N39.0 Urinary tract infection, site not specified; R13.10 Dysphagia, unspecified; B96.4 Proteus (mirabilis) (morganii) as the cause of diseases classified elsewhere; B96.5 Pseudomonas (aeruginosa) (mallei) (pseudomallei) as the cause of diseases classified elsewhere; Z16.24 Resistance to multiple antibiotics; J96.22 Acute and chronic respiratory failure with hypercapnia; D64.9 Anemia, unspecified; E03.9 Hypothyroidism, unspecified; E78.5 Hyperlipidemia, unspecified; N18.9 Chronic kidney disease, unspecified; K21.9 Gastro-esophageal reflux disease without esophagitis; E11.9 Type 2 diabetes mellitus without complications
CPT/HCPCS: 36415; 36600; 71010; 80053; 80150; 80299; 81003; 82248; 82550; 82553; 82607; 82728; 82746; 82803; 83540; 83550; 83605; 83735; 83880; 84100; 84443; 84484; 84550; 85007; 85025; 85610; 85730; 86140; 86850; 86900; 86901; 87040; 87070; 87081; 87086; 87181; 87205; 93005; 93306; 94002; 94003; 94640; C9399; J7620

== ENCOUNTER 2017-04-05 17:21 | Inpatient (IN) | payer MEDICAID ==
[~2017-04-05] VITALS: Ht 162.6 cm; Wt 59.0 kg
[~2017-04-05 17:21] MED LIST changes: +COLACE100 MG ORAL; +MEROPENEM1 GM IV; +MILK OF MA400 MG/51 ORAL; +VITAMIN C250 MG ORAL; +VITAMIN C500 M1 ORAL; +ZINC30 MG GT
--- NOTE | 2017-04-05 17:35 | Emergency Room Report ---
History of Present Illness General Chief Complaint: General Complaint Source: EMS Present Illness HPI Patient is a 66-year-old male who presented after increased difficulty with gross hematuria. Patient poorly had been having episodes of bleeding throughout the entire day. Patient noted to be ventilator dependent. Reportedly the patient had not been a Sears catheter. The patient presented for further evaluation. The patient prior history of anoxic encephalopathy. Allergies: Coded Allergies: No Known Allergies (Unverified , 12/13/16) Patient History Past Medical History: see triage record Reviewed Nursing Documentation: PMH: Agreed, PSxH: Agreed Nursing Documentation-PMH Hx Hypertension: Yes - chronic kidney dz Hx Diabetes: Yes Hx Cancer: No Hx Gastrointestinal Problems: Yes - GERD, dysphagia, G-tube Hx Neurological Problems: Yes - epilepsy, anoxic brain damage Hx Cerebrovascular Accident: Yes Review of Systems All Other Systems: limited - by mental status Physical Exam Vital Signs Date Time Temp Pulse Resp B/P (MAP) Pulse Ox O2 Delivery O2 Flow Rate FiO2 04/05/17 17:17 110 20 108/50 99 Trach Collar General Appearance: alert, Chronically Ill ENT: dry mucus membranes Neck: other - tracheostomy Respiratory: lungs clear, normal breath sounds Cardiovascular #1: tachycardia Gastrointestinal: non tender, soft, distended, other - blood at meatus Genitourinary: other - uncircumcised, large amount of blood at meatus Neurologic: motor weakness Psychiatric: normal inspection Skin: normal inspection Medical Decision Making Diagnostic Impression: Primary Impression: Chronic respiratory failure Additional Impressions: Gross hematuria Urethral obstruction ER Course Patient is a 66-year-old male brought in by EMS after increased difficulty with hematuria. The patient presented for hematuria. Differential diagnosis included was not limited to urinary tract infection, renal cell carcinoma, bladder CA pyelonephritis among others. The patient was noted to have marked elevation of his white blood count consistent with infection. CT abdomen pelvis showed the malposition of the Sears catheter. A Sears catheter was attempted after hematuria had began. Patient was noted to have a large amount clot in the bladder. The patient started on IV antibiotics. Dr. Dami Fonseca was contacted for urology consult. Dr. Nicolas was contacted for inpatient due to capitated physician. urinary catheter was placed by Dr Fonseca with good urine output. Labs Test 04/05/17 19:26 White Blood Count 34.8 K/UL (4.8-10.8) Red Blood Count 3.67 M/UL (4.70-6.10) Hemoglobin 10.6 G/DL (14.2-18.0) Hematocrit 33.8 % (42.0-52.0) Mean Corpuscular Volume 92 FL (80-99) Mean Corpuscular Hemoglobin 28.8 PG (27.0-31.0) Mean Corpuscular Hemoglobin Concent 31.3 G/DL (32.0-36.0) Red Cell Distribution Width 14.0 % (11.6-14.8) Platelet Count 456 K/UL (150-450) Mean Platelet Volume 5.9 FL (6.5-10.1) Neutrophils (%) (Auto) % (45.0-75.0) Lymphocytes (%) (Auto) % (20.0-45.0) Monocytes (%) (Auto) % (1.0-10.0) Eosinophils (%) (Auto) % (0.0-3.0) Basophils (%) (Auto) % (0.0-2.0) Differential Total Cells Counted 100 Neutrophils % (Manual) 88 % (45-75) Lymphocytes % (Manual) 8 % (20-45) Monocytes % (Manual) 4 % (1-10) Eosinophils % (Manual) 0 % (0-3) Basophils % (Manual) 0 % (0-2) Band Neutrophils 0 % (0-8) Platelet Estimate Increased Platelet Morphology Normal Polychromasia 1+ Anisocytosis 1+ Prothrombin Time 10.7 SEC (9.30-11.50) Prothromb Time International Ratio 1.0 (0.9-1.1) Activated Partial Thromboplast Time 31 SEC (23-33) Sodium Level 130 MMOL/L (136-145) Potassium Level 5.0 MMOL/L (3.5-5.1) Chloride Level 96 MMOL/L (98-107) Carbon Dioxide Level 26 MMOL/L (21-32) Anion Gap 8 (5-15) Blood Urea Nitrogen 37 mg/dL (7-18) Creatinine 1.3 MG/DL (0.55-1.30) Estimat Glomerular Filtration Rate 55.6 mL/min (>60) Glucose Level 172 MG/DL (74-106) Lactic Acid Level 1.80 mmol/L (0.66-2.22) Calcium Level 9.5 MG/DL (8.5-10.1) Total Bilirubin 0.2 MG/DL (0.2-1.0) Aspartate Amino Transf (AST/SGOT) 25 U/L (15-37) Alanine Aminotransferase (ALT/SGPT) 23 U/L (12-78) Alkaline Phosphatase 85 U/L (46-116) Total Protein 8.7 G/DL (6.4-8.2) Albumin 2.8 G/DL (3.4-5.0) Globulin 5.9 g/dL Albumin/Globulin Ratio 0.5 (1.0-2.7) EKG Diagnostic Results Rate: tachycardiac Rhythm: NSR ST Segments: no acute changes Last Vital Signs Date Time Temp Pulse Resp B/P (MAP) Pulse Ox O2 Delivery O2 Flow Rate FiO2 04/05/17 17:17 110 20 108/50 99 Trach Collar Status: unchanged Disposition: ADMITTED INPATIENT Condition: Serious Jayce Ny Apr 05, 2017 17:35
[2017-04-05] MEDS ORDERED: ALBUTEROL2.5 MG/3 M INH (17:39)
[2017-04-05] MEDS ORDERED: ATIVAN1 MG ORAL (17:39)
[2017-04-05] MEDS ORDERED: PROTONIX40 MG GT (17:47)
[2017-04-05] MEDS ORDERED: MULTI-DELYN237 ML GT (17:47)
[2017-04-05] MEDS ORDERED: MILK OF MA400 MG/51 GT (17:47)
[2017-04-05] MEDS ORDERED: KEPPRA500 M4 GT (17:47)
[2017-04-05] MEDS ORDERED: SENOKOT8.6 MG GT (17:47)
[2017-04-05] MEDS ORDERED: PROMOD946 ML GT (17:47)
[2017-04-05] MEDS ORDERED: LEVOTHYROXINE150 MCG GT (17:47)
[2017-04-05 18:20] VITALS: BP 112/54
[2017-04-05 19:41] VITALS: BP 118/71
[2017-04-05 19:56] LABS: MEAN CORPUSCULAR HEMOGLOBIN 28.8 PG (27.0-31.0); MEAN CORPUSCULAR HGB CONC 31.3 G/DL (32.0-36.0); MEAN CORPUSCULAR VOLUME 92 FL (80-99); MEAN PLATELET VOLUME 5.9 FL (6.5-10.1); PLATELET COUNT 456 K/UL (150-450); RED BLOOD COUNT 3.67 M/UL (4.70-6.10)
[2017-04-05 19:59] LABS: PROTHROMBIN TIME 10.7 SEC (9.30-11.50)
[2017-04-05] MEDS ORDERED: LORazepam Inj 2mg/ml 1ml IV ONE ×2 (20:00→22:45)
[2017-04-05] MEDS ORDERED: levETIRAcetam 500mg/NS100ml 100 ML IVPB ONE (20:00)
[2017-04-05 20:01] LABS: WHITE BLOOD COUNT 34.8 K/UL (4.8-10.8)
[2017-04-05 20:06] LABS: ALANINE AMINOTRANSFERASE 23 U/L (12-78); ALBUMIN/GLOBULIN RATIO 0.5 (1.0-2.7); ANION GAP 8 (5-15); ASPARTATE AMINO TRANSFERASE 25 U/L (15-37); CALCIUM 9.5 MG/DL (8.5-10.1); CARBON DIOXIDE 26 MMOL/L (21-32); CHLORIDE 96 MMOL/L (98-107); CREATININE 1.3 MG/DL (0.55-1.30); GLOMERULAR FILTRATION RATE 55.6 mL/min (>60); SODIUM 130 MMOL/L (136-145); TOTAL PROTEIN 8.7 G/DL (6.4-8.2)
[2017-04-05] MEDS ORDERED: Ampicillin/Sulbactam Sod 3 GM in NS 110 ML IVPB ONE (20:15)
[2017-04-05 20:56] LABS: LYMPHOCYTES % (MANUAL) 8 % (20-45); NEUTROPHILS % (MANUAL) 88 % (45-75); TOTAL CELLS COUNTED 100
[2017-04-05 20:57] LABS: ANISOCYTOSIS 1+; BAND NEUTROPHILS % (MANUAL) 0 % (0-8); BASOPHILS % (MANUAL) 0 % (0-2); EOSINOPHILS % (MANUAL) 0 % (0-3); PLATELET ESTIMATE INCREASED
[2017-04-05 20:58] LABS: PLATELET MORPHOLOGY NORMAL; POLYCHROMASIA 1+
[2017-04-05 21:32] VITALS: BP 105/65
[2017-04-05] MEDS ORDERED: Unasyn 3gm Inj ONE (21:38)
[2017-04-05] MEDS ORDERED: Morphine Sulfate 4mg/ml Inj IVP PRN (22:00)
[2017-04-05] MEDS ORDERED: Albuterol/Ipratropium 3ml neb HHN PRN (22:00)
[2017-04-05] MEDS ORDERED: Miralax 17gm pkt ORAL PRN (22:00)
[2017-04-05] MEDS ORDERED: Acetaminophen Soln 160mg/5ml ORAL PRN (22:00)
[2017-04-05] MEDS ORDERED: LORazepam Inj 2mg/ml 1ml IV PRN (22:00)
[2017-04-05 23:38] VITALS: BP 130/98
[2017-04-06] VITALS (8 sets, daily range): BP systolic 95–132; BP diastolic 56–74
[2017-04-06] MEDS ORDERED: Piperacillin/Tazobactam 3.375 GM in NS 110 ML IVPB SCH ×2
[2017-04-06] MEDS ORDERED: LORazepam Inj 2mg/ml 1ml IV ONE
[2017-04-06 00:12] LABS: APPEARANCE,URINE CLOUDY; KETONES,URINE NEGATIVE (NEGATIVE); LEUKOCYTE ESTERASE ,URINE 3+ (NEGATIVE); NITRITE,URINE NEGATIVE (NEGATIVE); PH,URINE 7 (4.5-8.0); PROTEIN,URINE 4+ (NEGATIVE); UROBILINOGEN,URINE NORMAL MG/DL (0.0-1.0)
[2017-04-06] MEDS: Acetaminophen 650 MG SUPP RECTAL PRN ×2 (00:14→04:50)
[2017-04-06] MEDS ORDERED: Metoprolol 5mg/5ml Inj IVP SCH (00:15)
[2017-04-06 00:16] LABS: BACTERIA,URINE FEW /HPF; RBC,URINE TNTC /HPF (0 - 0); SQUAMOUS EPITHELIAL CELL,UR FEW /LPF (NONE/OCC)
[2017-04-06] MEDS ORDERED: Zosyn 3.375gm inj ONE (01:35)
[2017-04-06] MEDS ORDERED: Vancomycin 1gm inj IVPB ONE (01:35)
[2017-04-06] MEDS: Vancomycin 1 GM in D5W 275 ML IVPB SCH (01:49)
[2017-04-06] MEDS: Piperacillin/Tazobactam 3.375 GM in NS 110 ML IVPB SCH ×3 (03:32→20:25)
[2017-04-06] MEDS: Heparin 5000 units/ml inj SUBQ SCH ×2 (09:00→20:23)
[2017-04-06] MEDS: Pantoprazole Inj IV SCH (09:29)
--- NOTE | 2017-04-06 09:32 | Diagnostic Imaging Report ---
Indication: Gross hematuria Comparison: None Technique: Contiguous helical CT images through the abdomen pelvis was performed with intravenous contrast only. Oral contrast was not administered. Axial coronal and sagittal reconstructions were reformatted. CT Dose: Total DLP: 1118 mGycm; Total CTDI volume 19.1 Findings: The liver is normal. Gallbladder is normal. No bile duct dilation present. Spleen is normal. Pancreas is normal. Adrenal glands are normal. There is mild dilation of the bilateral renal collecting systems. Otherwise, kidneys are normal. No solid renal masses. The urinary bladder is distended. There is high attenuation material layering in the urinary bladder worrisome for blood/clots however other dense debris or underlying mass lesion cannot be excluded. There is some air noted in the urinary bladder which may be from Sears catheter. Please note that there is a malpositioned Sears catheter with the balloon in the prosthetic urethra. No bowel obstruction. Percutaneous G-tube is noted. Stomach is distended with gas. Small amount of fluid in the distal esophagus. Small hiatal hernia. Appendix identified. No free fluid or free air. Degenerative changes of the thoracolumbar spine. Impression: Malpositioned Sears, balloon in the prostatic urethra. Distention of urinary bladder. High attenuation material worrisome for hemorrhage however other history or underlying mass lesion is not excluded. Small amount of air in the urinary bladder may be from Sears catheter. Mild ectasia of the bilateral renal collecting systems. This may be from mild urinary bladder obstruction. Percutaneous gastric tube. No free fluid or free air. No bowel obstruction.
[2017-04-06 09:50] LABS: ABG ALLEN TEST POSITIVE; ABG BASE EXCESS -1.8; ABG PCO2 28.6 mmHg (35.0-45.0)
--- NOTE | 2017-04-06 10:57 | Consultation ---
History of Present Illness General Date patient seen: Apr 06, 2017 Time patient seen: 10:57 Chief Complaint: General Complaint Reason for Consultation: sepsis Present Illness HPI 66 y/o M with hx of chronic resp failure-vent dependant, GERD, dysphagia s/p GJ tube, anoxic brain injury, seizure disorder, CKD presents to ED on 04/05 with increasing urinary difficulty and gross hematuria. Patient found to be febrile up to 103, leukocytosis at 34.8. u/a with hematuria and mild pyuria. Started on IV vanco and Zosyn, cx pending. Bp stable. Allergies: Coded Allergies: No Known Allergies (Unverified , 12/13/16) Medication History Scheduled Ascorbic Acid* (Vitamin C*), 250 MG ORAL DAILY, (Reported) Ascorbic Acid* (Vitamin C*), 500 MG ORAL DAILY, (Reported) Docusate Sodium* (Colace*), 100 MG ORAL DAILY, (Reported) Levetiracetam (Keppra), 1,000 MG ORAL DAILY, (Reported) Levetiracetam (Keppra), 500 MG GT EVERY 12 HOURS, (Reported) Levothyroxine Sodium* (Levothyroxine Sodium*), 150 MCG ORAL DAILY, (Reported) Levothyroxine Sodium* (Levothyroxine Sodium*), 150 MCG GT DAILY, (Reported) Lorazepam* (Ativan*), 1 MG ORAL Q4HR, (Reported) Magnesium Hydroxide* (Milk Of Magnesia*), 30 ML ORAL DAILY, (Reported) Meropenem (Meropenem), 1 GM IV Q8HR Multivitamin Liquid* (Multi-Delyn*), 15 ML GT DAILY, (Reported) Pantoprazole* (Protonix*), 40 MG GT DAILY, (Reported) Prazosin Hcl* (Minipress*), 4 MG PO BEDTIME, (Reported) Protein Supplement (Promod), 30 ML GT DAILY, (Reported) Sennosides (Senokot), 17.2 MG GT DAILY, (Reported) Zinc Gluconate (Zinc), 220 MG GT BID, (Reported) Scheduled PRN Acetaminophen* (Acetaminophen*), 640 MG ORAL Q4H PRN for Mild Pain/Temp > 100.5, (Reported) Albuterol Sulfate* (Albuterol Sulfate Hhn*), 3 ML INH Q4H PRN for Shortness of Breath, (Reported) Miscellaneous Medications Captopril (Captopril), 12.5 MG GT, (Reported) Magnesium Hydroxide* (Milk Of Magnesia*), 30 ML GT, (Reported) Protein Supplement (Promod), 946 ML PO, (Reported) Patient History Healthcare decision maker Resuscitation status Full Code Advanced Directive on File Patient History Narrative PMhx: as above Sx: unable to obtain Fhx: non contributory Review of Systems ROS Narrative unble to obtain Physical Exam Physical Exam Narrative General Appearance: chronically ill, not in distress HEENT, atraumatic, PERRL, bilateral eye, EOMI, no oral lesions Neck: normal inspection, supple, trach in place Respiratory: coarse Breath sounds Cardiovascular regular rate, rhythm, no edema Gastrointestinal: normal inspection, normal bowel sounds, non tender, soft, no guarding,GT in place (no signs of inefction) Neurologic: encephalopatic Skin: normal inspection, normal color, no rash Last 24 Hour Vital Signs Date Time Temp Pulse Resp B/P (MAP) Pulse Ox O2 Delivery O2 Flow Rate FiO2 04/06/17 10:16 98.2 92 16 95/62 100 Mechanical Ventilator 35 04/06/17 09:21 128 16 30 04/06/17 08:00 98.2 92 16 95/62 100 Mechanical Ventilator 30 04/06/17 08:00 30 04/06/17 07:07 121 16 30 04/06/17 05:20 98.9 04/06/17 05:17 121 16 30 04/06/17 04:00 122 04/06/17 04:00 100.5 119 17 105/56 100 Mechanical Ventilator 30 04/06/17 04:00 30 04/06/17 02:50 127 20 30 04/06/17 02:40 99.1 04/06/17 01:30 102.1 118 22 116/68 100 Mechanical Ventilator 30 04/06/17 01:30 30 04/06/17 01:00 103.0 124 26 123/63 100 Mechanical Ventilator 30 04/06/17 00:53 102.3 124 26 123/63 100 Mechanical Ventilator 30 04/06/17 00:47 120 21 30 04/06/17 00:16 150 154/108 04/05/17 23:38 99.0 136 33 130/98 99 Mechanical Ventilator 30 04/05/17 23:30 128 32 30 04/05/17 23:12 30 04/05/17 21:32 99.0 126 19 105/65 99 Mechanical Ventilator 30 04/05/17 20:49 131 36 30 04/05/17 19:50 145 38 30 04/05/17 19:50 145 38 Mechanical Ventilator 30 04/05/17 19:49 50 04/05/17 19:41 145 21 118/71 99 Mechanical Ventilator 30 04/05/17 18:20 99.0 94 26 112/54 99 Trach Collar 30 04/05/17 18:11 129 26 30 04/05/17 17:17 110 20 108/50 99 Trach Collar Intake and Output 04/06/17 04/07/17 19:00 07:00 # Bowel Movements 1 Laboratory Tests Test 04/05/17 19:26 04/05/17 23:40 04/06/17 09:45 White Blood Count 34.8 K/UL (4.8-10.8) *H Red Blood Count 3.67 M/UL (4.70-6.10) L Hemoglobin 10.6 G/DL (14.2-18.0) L Hematocrit 33.8 % (42.0-52.0) L Mean Corpuscular Volume 92 FL (80-99) Mean Corpuscular Hemoglobin 28.8 PG (27.0-31.0) Mean Corpuscular Hemoglobin Concent 31.3 G/DL (32.0-36.0) L Red Cell Distribution Width 14.0 % (11.6-14.8) Platelet Count 456 K/UL (150-450) H Mean Platelet Volume 5.9 FL (6.5-10.1) L Neutrophils (%) (Auto) % (45.0-75.0) Lymphocytes (%) (Auto) % (20.0-45.0) Monocytes (%) (Auto) % (1.0-10.0) Eosinophils (%) (Auto) % (0.0-3.0) Basophils (%) (Auto) % (0.0-2.0) Differential Total Cells Counted 100 Neutrophils % (Manual) 88 % (45-75) H Lymphocytes % (Manual) 8 % (20-45) L Monocytes % (Manual) 4 % (1-10) Eosinophils % (Manual) 0 % (0-3) Basophils % (Manual) 0 % (0-2) Band Neutrophils 0 % (0-8) Platelet Estimate Increased H Platelet Morphology Normal Polychromasia 1+ Anisocytosis 1+ Prothrombin Time 10.7 SEC (9.30-11.50) Prothromb Time International Ratio 1.0 (0.9-1.1) Activated Partial Thromboplast Time 31 SEC (23-33) Sodium Level 130 MMOL/L (136-145) L Potassium Level 5.0 MMOL/L (3.5-5.1) Chloride Level 96 MMOL/L (98-107) L Carbon Dioxide Level 26 MMOL/L (21-32) Anion Gap 8 (5-15) Blood Urea Nitrogen 37 mg/dL (7-18) H Creatinine 1.3 MG/DL (0.55-1.30) Estimat Glomerular Filtration Rate 55.6 mL/min (>60) Glucose Level 172 MG/DL (74-106) H Lactic Acid Level 1.80 mmol/L (0.66-2.22) Calcium Level 9.5 MG/DL (8.5-10.1) Total Bilirubin 0.2 MG/DL (0.2-1.0) Aspartate Amino Transf (AST/SGOT) 25 U/L (15-37) Alanine Aminotransferase (ALT/SGPT) 23 U/L (12-78) Alkaline Phosphatase 85 U/L (46-116) Total Protein 8.7 G/DL (6.4-8.2) H Albumin 2.8 G/DL (3.4-5.0) L Globulin 5.9 g/dL Albumin/Globulin Ratio 0.5 (1.0-2.7) L Urine Color Red Urine Appearance Cloudy Urine pH 7 (4.5-8.0) Urine Specific [place] 1.005 (1.005-1.035) Urine Protein 4+ (NEGATIVE) H Urine Glucose (UA) Negative (NEGATIVE) Urine Ketones Negative (NEGATIVE) Urine Occult Blood 5+ (NEGATIVE) H Urine Nitrite Negative (NEGATIVE) Urine Bilirubin Negative (NEGATIVE) Urine Urobilinogen Normal MG/DL (0.0-1.0) Urine Leukocyte Esterase 3+ (NEGATIVE) H Urine RBC Tntc /HPF (0 - 0) H Urine WBC 5-10 /HPF (0 - 0) H Urine Squamous Epithelial Cells Few /LPF (NONE/OCC) Urine Bacteria Few /HPF (NONE) Arterial Blood pH 7.485 (7.350-7.450) Arterial Blood Partial Pressure CO2 28.6 mmHg (35.0-45.0) L Arterial Blood Partial Pressure O2 134.9 mmHg (75.0-100.0) H Arterial Blood HCO3 21.1 mmol/L (22.0-26.0) L Arterial Blood Oxygen Saturation 98.7 % (92.0-98.0) H Arterial Blood Base Excess -1.8 Karson Test Positive reivewed Height (Feet): 5 Height (Inches): 4.00 Weight (Pounds): 130 Medications Current Medications Medications (Trade) Dose Ordered Sig/Dolly Route PRN Reason Start Time Stop Time Status Last Admin Dose Admin Acetaminophen (Tylenol) 650 mg STAT PRN RECTAL Mild Pain (Pain Scale 1-3) 04/06/17 00:15 05/06/17 00:14 04/06/17 04:50 Albuterol/ Ipratropium (DuoNeb 0.5-3(2.5)mg/3ml) 3 ml EVERY 4 HOURS PRN HHN Shortness of Breath 04/05/17 22:00 04/10/17 21:59 Dextrose (Dextrose 50%) STAT PRN IV Hypoglycemia 04/05/17 22:00 05/05/17 21:59 Heparin Sodium (Porcine) (Heparin 5000 units/ml) 5,000 units EVERY 12 HOURS SUBQ 04/06/17 09:00 05/06/17 08:59 Levetiracetam (Keppra) 1,000 mg DAILY ORAL 04/06/17 09:00 05/06/17 08:59 04/06/17 09:29 Levothyroxine Sodium (Synthroid) 150 mcg DAILY GT 04/06/17 09:00 05/06/17 08:59 04/06/17 09:29 Lorazepam (Ativan 2mg/ml 1ml) 2 mg EVERY 2 HOURS PRN IV For Anxiety 04/05/17 22:00 04/12/17 21:59 Metoprolol Tartrate (Lopressor) 5 mg STAT IVP 04/06/17 00:15 05/06/17 00:14 04/06/17 00:16 Morphine Sulfate (Morphine Sulfate) 4 mg EVERY 4 HOURS PRN IVP Severe Pain (Pain Scale 7-10) 04/05/17 22:00 04/12/17 21:59 Ondansetron HCl (Zofran) 4 mg Q6H PRN IVP Nausea & Vomiting 04/05/17 22:00 05/05/17 21:59 Pantoprazole (Protonix) 40 mg DAILY IV 04/06/17 09:00 05/06/17 08:59 04/06/17 09:29 Piperacillin Sod/ Tazobactam Sod 3.375 gm/Sodium Chloride 110 ml @ 27.5 mls/hr Q8H IVPB 04/06/17 04:00 04/13/17 03:59 04/06/17 03:32 Polyethylene Glycol (Miralax) 17 gm DAILYPRN PRN ORAL Constipation 04/05/17 22:00 05/05/17 21:59 Vancomycin HCl (Vanco rx to dose) 1 ea DAILY MISC 04/06/17 09:00 05/06/17 08:59 Vancomycin HCl 1 gm/Dextrose 275 ml @ 183.3 mls/ hr Q24H IVPB 04/06/17 02:00 04/11/17 01:59 04/06/17 01:49 Assessment/Plan Assessment/Plan Abx: IV Vancomycin 04/06- IV Zosyn 04/06- IV Unasyn x1 03/26 Flagyl x1 03/26 Assesment: Sepsis- likely 2ry to UTI- r/o bacteremia, r/o PNA -u/a WBC 5-10, nit neg, leuk +3, RBC tntc; ucx pending -Bcx pending -CT abd/p w/: Malpositioned Munguia, balloon in the prostatic urethra. Distention of urinary bladder. High attenuation material worrisome for hemorrhage however other history or underlying mass lesion is not excluded. Small amount of air in the urinary bladder may be from Munguia catheter. Mild ectasia of the bilateral renal collecting systems. This may be from mild urinary bladder obstruction. Otherwise, kidneys are normal. Percutaneous gastric tube. No free fluid or free air. No bowel obstruction. Fever/ leukocytosis (possible hemorrhage contributing)- 2ry to above Hematuria- possibly traumatic given malposition of munguia- r/o malignancy Plan: -Continue IV Vancomycin and Zosyn for now pending cx -check CXR, renal u/s , influenza test -Urology evaluation -f/u cx -Monitor CBC/BMP, temperatures Thank you for this consultation. Will continue to follow along with you. Discussed with JUANJOSE. Pastora Yeboah M.D. Apr 06, 2017 10:57
[2017-04-06 11:56] LABS: MEAN CORPUSCULAR HEMOGLOBIN 29.3 PG (27.0-31.0); MEAN CORPUSCULAR HGB CONC 32.4 G/DL (32.0-36.0); MEAN CORPUSCULAR VOLUME 91 FL (80-99); PLATELET COUNT 295 K/UL (150-450); RED BLOOD COUNT 2.81 M/UL (4.70-6.10); RED CELL DISTRIBUTION WIDTH 14.4 % (11.6-14.8); WHITE BLOOD COUNT 21.6 K/UL (4.8-10.8)
[2017-04-06 12:18] LABS: ANION GAP 10 (5-15); CALCIUM 8.6 MG/DL (8.5-10.1); CARBON DIOXIDE 22 MMOL/L (21-32); CHLORIDE 102 MMOL/L (98-107); CREATININE 1.4 MG/DL (0.55-1.30); PHOSPHORUS 4.3 MG/DL (2.5-4.9); POTASSIUM 4.6 MMOL/L (3.5-5.1); SODIUM 134 MMOL/L (136-145)
[2017-04-06 13:23] LABS: BAND NEUTROPHILS % (MANUAL) 0 % (0-8); BASOPHILS % (MANUAL) 0 % (0-2); EOSINOPHILS % (MANUAL) 2 % (0-3); LYMPHOCYTES % (MANUAL) 15 % (20-45); NEUTROPHILS % (MANUAL) 74 % (45-75); PLATELET ESTIMATE ADEQUATE; PLATELET MORPHOLOGY NORMAL; TOTAL CELLS COUNTED 100
[2017-04-06] MEDS ORDERED: D5W 275ml ONE (16:19)
[2017-04-06] MEDS ORDERED: Tubing IV Secondary IV ONE (16:19)
[2017-04-06] MEDS ORDERED: NS 275ml ONE (16:19)
--- NOTE | 2017-04-06 17:52 | History and Physical ---
History of Present Illness General Date patient seen: Apr 06, 2017 Time patient seen: 13:00 Reason for Hospitalization: General Complaint Present Illness HPI 66-year-old male with PMH of VDRF, tracheostomy, COPD, HTN, anoxic encephalopathy, dysphagia, G tube, DM, CKD, presented with gross hematuria. per report hematuria x 1 day in ED patient febrile, tachycardic, with leucocytosis -34.8 , urine with pyuria CT A/P revealed malpositioned Munguia, balloon in the prostatic urethra. Distention of urinary bladder. High attenuation material worrisome for hemorrhage however other history or underlying mass lesion is not excluded. Small amount of air in the urinary bladder may be from Munguia catheter. Mild ectasia of the bilateral renal collecting systems. This may be from mild urinary bladder obstruction. Otherwise , kidneys are normal. Percutaneous gastric tube. No free fluid or free air. No bowel obstruction. patient was admitted for further management urologist was contacted munguia catheter was placed Allergies: Coded Allergies: No Known Allergies (Unverified , 12/13/16) Medication History Scheduled Ascorbic Acid* (Vitamin C*), 250 MG ORAL DAILY, (Reported) Ascorbic Acid* (Vitamin C*), 500 MG ORAL DAILY, (Reported) Docusate Sodium* (Colace*), 100 MG ORAL DAILY, (Reported) Ertapenem (Invanz), 1 GM IV BOLUS DAILY Levetiracetam (Keppra), 1,000 MG ORAL DAILY, (Reported) Levetiracetam (Keppra), 500 MG GT EVERY 12 HOURS, (Reported) Levothyroxine Sodium* (Levothyroxine Sodium*), 150 MCG ORAL DAILY, (Reported) Levothyroxine Sodium* (Levothyroxine Sodium*), 150 MCG GT DAILY, (Reported) Lorazepam* (Ativan*), 1 MG ORAL Q4HR, (Reported) Magnesium Hydroxide* (Milk Of Magnesia*), 30 ML ORAL DAILY, (Reported) Meropenem (Meropenem), 1 GM IV Q8HR Multivitamin Liquid* (Multi-Delyn*), 15 ML GT DAILY, (Reported) Pantoprazole* (Protonix*), 40 MG GT DAILY, (Reported) Prazosin Hcl* (Minipress*), 4 MG PO BEDTIME, (Reported) Protein Supplement (Promod), 30 ML GT DAILY, (Reported) Sennosides (Senokot), 17.2 MG GT DAILY, (Reported) Zinc Gluconate (Zinc), 220 MG GT BID, (Reported) Scheduled PRN Acetaminophen* (Acetaminophen*), 640 MG ORAL Q4H PRN for Mild Pain/Temp > 100.5, (Reported) Albuterol Sulfate* (Albuterol Sulfate Hhn*), 3 ML INH Q4H PRN for Shortness of Breath, (Reported) Miscellaneous Medications Captopril (Captopril), 12.5 MG GT, (Reported) Magnesium Hydroxide* (Milk Of Magnesia*), 30 ML GT, (Reported) Protein Supplement (Promod), 946 ML PO, (Reported) Patient History History Provided By: Medical Record Healthcare decision maker Resuscitation status Full Code Advanced Directive on File Past Medical/Surgical History Past Medical/Surgical History: (1) Seizure disorder as sequela of cerebrovascular accident (2) Feeding by G-tube (3) Tracheostomy in place (4) Vegetative state (5) Severe anoxic-ischemic encephalopathy Review of Systems ROS Narrative unable to obtain due to ALOC Physical Exam General Appearance: no apparent distress, other - lethargic Lines, tubes and drains: peripheral, trach, gtube, munguia cath HEENT: status post trach - site clean Neck: trach - Portex #7, secretion smoderate, yellow, thick Respiratory/Chest: lungs clear, no respiratory distress Cardiovascular/Chest: normal rate - SR on tele , regular rhythm Abdomen: normal bowel sounds, non tender, soft, feeding tube - G tube, site clean Genitourinary/Rectal: other - Munguia with pink urine Skin Exam: other - decub st 2 Neurologic: abnormal gait - bedridden, other - L hemiparesis , letahrgic Last 24 Hour Vital Signs Date Time Temp Pulse Resp B/P (MAP) Pulse Ox O2 Delivery O2 Flow Rate FiO2 04/06/17 17:00 102 17 30 04/06/17 15:15 109 16 30 04/06/17 13:02 106 16 30 04/06/17 12:00 30 04/06/17 12:00 99.4 107 16 100/66 100 Mechanical Ventilator 35 100 04/06/17 11:51 107 04/06/17 11:20 107 16 30 04/06/17 10:16 98.2 92 16 95/62 100 Mechanical Ventilator 35 04/06/17 09:21 128 16 30 04/06/17 08:00 98.2 92 16 95/62 100 Mechanical Ventilator 30 04/06/17 08:00 30 04/06/17 07:07 121 16 30 04/06/17 05:20 98.9 04/06/17 05:17 121 16 30 04/06/17 04:00 122 04/06/17 04:00 100.5 119 17 105/56 100 Mechanical Ventilator 30 04/06/17 04:00 30 04/06/17 02:50 127 20 30 04/06/17 02:40 99.1 04/06/17 01:30 102.1 118 22 116/68 100 Mechanical Ventilator 30 04/06/17 01:30 30 04/06/17 01:00 103.0 124 26 123/63 100 Mechanical Ventilator 30 04/06/17 00:53 102.3 124 26 123/63 100 Mechanical Ventilator 30 04/06/17 00:47 120 21 30 04/06/17 00:16 150 154/108 04/05/17 23:38 99.0 136 33 130/98 99 Mechanical Ventilator 30 04/05/17 23:30 128 32 30 04/05/17 23:12 30 04/05/17 21:32 99.0 126 19 105/65 99 Mechanical Ventilator 30 04/05/17 20:49 131 36 30 04/05/17 19:50 145 38 30 04/05/17 19:50 145 38 Mechanical Ventilator 30 04/05/17 19:49 50 04/05/17 19:41 145 21 118/71 99 Mechanical Ventilator 30 04/05/17 18:20 99.0 94 26 112/54 99 Trach Collar 30 04/05/17 18:11 129 26 30 Intake and Output 04/06/17 04/07/17 19:00 07:00 # Bowel Movements 2 Laboratory Tests Test 04/05/17 19:26 04/05/17 23:40 04/06/17 09:45 04/06/17 11:10 White Blood Count 34.8 K/UL (4.8-10.8) *H 21.6 K/UL (4.8-10.8) H Red Blood Count 3.67 M/UL (4.70-6.10) L 2.81 M/UL (4.70-6.10) L Hemoglobin 10.6 G/DL (14.2-18.0) L 8.2 G/DL (14.2-18.0) L Hematocrit 33.8 % (42.0-52.0) L 25.4 % (42.0-52.0) L Mean Corpuscular Volume 92 FL (80-99) 91 FL (80-99) Mean Corpuscular Hemoglobin 28.8 PG (27.0-31.0) 29.3 PG (27.0-31.0) Mean Corpuscular Hemoglobin Concent 31.3 G/DL (32.0-36.0) L 32.4 G/DL (32.0-36.0) Red Cell Distribution Width 14.0 % (11.6-14.8) 14.4 % (11.6-14.8) Platelet Count 456 K/UL (150-450) H 295 K/UL (150-450) Mean Platelet Volume 5.9 FL (6.5-10.1) L 6.0 FL (6.5-10.1) L Neutrophils (%) (Auto) % (45.0-75.0) % (45.0-75.0) Lymphocytes (%) (Auto) % (20.0-45.0) % (20.0-45.0) Monocytes (%) (Auto) % (1.0-10.0) % (1.0-10.0) Eosinophils (%) (Auto) % (0.0-3.0) % (0.0-3.0) Basophils (%) (Auto) % (0.0-2.0) % (0.0-2.0) Differential Total Cells Counted 100 100 Neutrophils % (Manual) 88 % (45-75) H 74 % (45-75) Lymphocytes % (Manual) 8 % (20-45) L 15 % (20-45) L Monocytes % (Manual) 4 % (1-10) 9 % (1-10) Eosinophils % (Manual) 0 % (0-3) 2 % (0-3) Basophils % (Manual) 0 % (0-2) 0 % (0-2) Band Neutrophils 0 % (0-8) 0 % (0-8) Platelet Estimate Increased H Adequate Platelet Morphology Normal Normal Polychromasia 1+ Anisocytosis 1+ Prothrombin Time 10.7 SEC (9.30-11.50) Prothromb Time International Ratio 1.0 (0.9-1.1) Activated Partial Thromboplast Time 31 SEC (23-33) Sodium Level 130 MMOL/L (136-145) L 134 MMOL/L (136-145) L Potassium Level 5.0 MMOL/L (3.5-5.1) 4.6 MMOL/L (3.5-5.1) Chloride Level 96 MMOL/L (98-107) L 102 MMOL/L (98-107) Carbon Dioxide Level 26 MMOL/L (21-32) 22 MMOL/L (21-32) Anion Gap 8 (5-15) 10 (5-15) Blood Urea Nitrogen 37 mg/dL (7-18) H 35 mg/dL (7-18) H Creatinine 1.3 MG/DL (0.55-1.30) 1.4 MG/DL (0.55-1.30) H Estimat Glomerular Filtration Rate 55.6 mL/min (>60) 51.0 mL/min (>60) Glucose Level 172 MG/DL (74-106) H 146 MG/DL (74-106) H Lactic Acid Level 1.80 mmol/L (0.66-2.22) Calcium Level 9.5 MG/DL (8.5-10.1) 8.6 MG/DL (8.5-10.1) Total Bilirubin 0.2 MG/DL (0.2-1.0) Aspartate Amino Transf (AST/SGOT) 25 U/L (15-37) Alanine Aminotransferase (ALT/SGPT) 23 U/L (12-78) Alkaline Phosphatase 85 U/L (46-116) Total Protein 8.7 G/DL (6.4-8.2) H Albumin 2.8 G/DL (3.4-5.0) L 2.2 G/DL (3.4-5.0) L Globulin 5.9 g/dL Albumin/Globulin Ratio 0.5 (1.0-2.7) L Urine Color Red Urine Appearance Cloudy Urine pH 7 (4.5-8.0) Urine Specific [place] 1.005 (1.005-1.035) Urine Protein 4+ (NEGATIVE) H Urine Glucose (UA) Negative (NEGATIVE) Urine Ketones Negative (NEGATIVE) Urine Occult Blood 5+ (NEGATIVE) H Urine Nitrite Negative (NEGATIVE) Urine Bilirubin Negative (NEGATIVE) Urine Urobilinogen Normal MG/DL (0.0-1.0) Urine Leukocyte Esterase 3+ (NEGATIVE) H Urine RBC Tntc /HPF (0 - 0) H Urine WBC 5-10 /HPF (0 - 0) H Urine Squamous Epithelial Cells Few /LPF (NONE/OCC) Urine Bacteria Few /HPF (NONE) Arterial Blood pH 7.485 (7.350-7.450) Arterial Blood Partial Pressure CO2 28.6 mmHg (35.0-45.0) L Arterial Blood Partial Pressure O2 134.9 mmHg (75.0-100.0) H Arterial Blood HCO3 21.1 mmol/L (22.0-26.0) L Arterial Blood Oxygen Saturation 98.7 % (92.0-98.0) H Arterial Blood Base Excess -1.8 Karson Test Positive Phosphorus Level 4.3 MG/DL (2.5-4.9) Thyroid Stimulating Hormone (TSH) 2.106 uiU/mL (0.360-3.740) Height (Feet): 5 Height (Inches): 4.00 Weight (Pounds): 130 Medications Current Medications Medications (Trade) Dose Ordered Sig/Dolly Route PRN Reason Start Time Stop Time Status Last Admin Dose Admin Albuterol/ Ipratropium (DuoNeb 0.5-3(2.5)mg/3ml) 3 ml EVERY 4 HOURS PRN HHN Shortness of Breath 04/05/17 22:00 04/10/17 21:59 Dextrose (Dextrose 50%) STAT PRN IV Hypoglycemia 04/05/17 22:00 05/05/17 21:59 Heparin Sodium (Porcine) (Heparin 5000 units/ml) 5,000 units EVERY 12 HOURS SUBQ 04/06/17 09:00 05/06/17 08:59 Levetiracetam (Keppra) 1,000 mg DAILY ORAL 04/06/17 09:00 05/06/17 08:59 04/06/17 09:29 Levothyroxine Sodium (Synthroid) 150 mcg DAILY GT 04/06/17 09:00 05/06/17 08:59 04/06/17 09:29 Lorazepam (Ativan 2mg/ml 1ml) 2 mg EVERY 2 HOURS PRN IV For Anxiety 04/05/17 22:00 04/12/17 21:59 Morphine Sulfate (Morphine Sulfate) 4 mg EVERY 4 HOURS PRN IVP Severe Pain (Pain Scale 7-10) 04/05/17 22:00 04/12/17 21:59 Ondansetron HCl (Zofran) 4 mg Q6H PRN IVP Nausea & Vomiting 04/05/17 22:00 05/05/17 21:59 Pantoprazole (Protonix) 40 mg DAILY IV 04/06/17 09:00 05/06/17 08:59 04/06/17 09:29 Piperacillin Sod/ Tazobactam Sod 3.375 gm/Sodium Chloride 110 ml @ 27.5 mls/hr Q8H IVPB 04/06/17 04:00 04/13/17 03:59 04/06/17 15:23 Polyethylene Glycol (Miralax) 17 gm DAILYPRN PRN ORAL Constipation 04/05/17 22:00 05/05/17 21:59 Vancomycin HCl (Vanco rx to dose) 1 ea DAILY MISC 04/06/17 09:00 05/06/17 08:59 Vancomycin HCl 1 gm/Dextrose 275 ml @ 183.3 mls/ hr Q24H IVPB 04/06/17 02:00 04/11/17 01:59 04/06/17 01:49 Assessment/Plan Assessment/Plan ASSESSMENT sepsis ( likely due to UTI) UTI hematuria due to malpositioned Munguia - improving after Munguia repositioned anemia VDRF/trach dysphagia G tube anoxic encephalopathy acute on CKD seizure disorder hypothyroidism PLAN OF CAER GALLO vent/trach care pulmonary toeitl baseline ABG noted, will decrease AC rate to 14 and check ABG in am abx, ID follows fup with cx monitor HH, transfuse prn anemia w/up Venous Duplex if negative place SCD seizure precautions, continue Keppra strict aspiration precautions, GT feeding, monitor tolerance., site care TSH WNL continue current dose of Levothyroxine gentle IVF renal US monitor renal parameters, lytes manually irrigate prn for clots case discussed and evaluated by supervising physician [facility])Mehnaz NP Apr 06, 2017 17:52
[2017-04-06] MEDS: NovoLOG Insulin Flexpen SUBQ SCH (20:24)
[2017-04-07] VITALS: BP 136/83
[2017-04-07] MEDS: Vancomycin 1 GM in D5W 275 ML IVPB SCH (02:22)
[2017-04-07 04:00] VITALS: BP 128/76
[2017-04-07] MEDS: Piperacillin/Tazobactam 3.375 GM in NS 110 ML IVPB SCH ×3 (04:05→20:17)
[2017-04-07] MEDS: NovoLOG Insulin Flexpen SUBQ SCH ×4 (05:38→20:19)
[2017-04-07 08:00] VITALS: BP 145/77
--- NOTE | 2017-04-07 08:07 | Infectious Diseases Prog Note ---
Assessment/Plan Assessment/Plan A; Sepsis UTI Malpositioned Sears Hematuria VDRF Anemia Anoxic encephalopathy P: Continue Zosyn & Vancomycin Will f/u cultures Subjective ROS Limited/Unobtainable: Yes Constitutional: Reports: fever, other - Otur=068.6 Gastrointestinal/Abdominal: Reports: diarrhea Allergies: Coded Allergies: No Known Allergies (Unverified , 12/13/16) Objective Vital Signs Last 24 Hour Vital Signs Date Time Temp Pulse Resp B/P (MAP) Pulse Ox O2 Delivery O2 Flow Rate FiO2 04/07/17 07:05 109 17 30 04/07/17 05:21 108 14 30 04/07/17 04:00 99.1 19 128/76 98 Mechanical Ventilator 30 04/07/17 04:00 115 04/07/17 04:00 30 04/07/17 03:28 114 20 30 04/07/17 01:30 99.0 04/07/17 00:34 116 16 30 04/07/17 00:00 30 04/07/17 00:00 101.6 115 17 136/83 99 Mechanical Ventilator 30 04/07/17 00:00 114 04/06/17 23:13 120 23 30 04/06/17 21:17 108 16 30 04/06/17 20:00 99.1 117 18 132/74 99 Mechanical Ventilator 30 04/06/17 20:00 30 04/06/17 20:00 30 04/06/17 18:53 110 14 30 04/06/17 17:00 102 17 30 04/06/17 16:00 30 04/06/17 16:00 99.7 114 16 120/64 95 Mechanical Ventilator 30 04/06/17 16:00 115 04/06/17 15:15 109 16 30 04/06/17 13:02 106 16 30 04/06/17 12:00 30 04/06/17 12:00 99.4 107 16 100/66 100 Mechanical Ventilator 35 100 04/06/17 11:51 107 04/06/17 11:20 107 16 30 04/06/17 10:16 98.2 92 16 95/62 100 Mechanical Ventilator 35 04/06/17 09:21 128 16 30 Height (Feet): 5 Height (Inches): 4.00 Weight (Pounds): 130 HEENT: status post trach Respiratory/Chest: lungs clear, other - on ventilator Cardiovascular: tachycardia Abdomen: soft, non tender, other - GT feedinf Genitourinary: other - Sears, hematuria Extremities: no edema, other - contracted arms, drop feet Neurologic/Psychiatric: other Laboratory Tests Test 04/06/17 09:45 04/06/17 11:10 Arterial Blood pH 7.485 (7.350-7.450) Arterial Blood Partial Pressure CO2 28.6 mmHg (35.0-45.0) L Arterial Blood Partial Pressure O2 134.9 mmHg (75.0-100.0) H Arterial Blood HCO3 21.1 mmol/L (22.0-26.0) L Arterial Blood Oxygen Saturation 98.7 % (92.0-98.0) H Arterial Blood Base Excess -1.8 Karson Test Positive White Blood Count 21.6 K/UL (4.8-10.8) H Red Blood Count 2.81 M/UL (4.70-6.10) L Hemoglobin 8.2 G/DL (14.2-18.0) L Hematocrit 25.4 % (42.0-52.0) L Mean Corpuscular Volume 91 FL (80-99) Mean Corpuscular Hemoglobin 29.3 PG (27.0-31.0) Mean Corpuscular Hemoglobin Concent 32.4 G/DL (32.0-36.0) Red Cell Distribution Width 14.4 % (11.6-14.8) Platelet Count 295 K/UL (150-450) Mean Platelet Volume 6.0 FL (6.5-10.1) L Neutrophils (%) (Auto) % (45.0-75.0) Lymphocytes (%) (Auto) % (20.0-45.0) Monocytes (%) (Auto) % (1.0-10.0) Eosinophils (%) (Auto) % (0.0-3.0) Basophils (%) (Auto) % (0.0-2.0) Differential Total Cells Counted 100 Neutrophils % (Manual) 74 % (45-75) Lymphocytes % (Manual) 15 % (20-45) L Monocytes % (Manual) 9 % (1-10) Eosinophils % (Manual) 2 % (0-3) Basophils % (Manual) 0 % (0-2) Band Neutrophils 0 % (0-8) Platelet Estimate Adequate Platelet Morphology Normal Sodium Level 134 MMOL/L (136-145) L Potassium Level 4.6 MMOL/L (3.5-5.1) Chloride Level 102 MMOL/L (98-107) Carbon Dioxide Level 22 MMOL/L (21-32) Anion Gap 10 (5-15) Blood Urea Nitrogen 35 mg/dL (7-18) H Creatinine 1.4 MG/DL (0.55-1.30) H Estimat Glomerular Filtration Rate 51.0 mL/min (>60) Glucose Level 146 MG/DL (74-106) H Calcium Level 8.6 MG/DL (8.5-10.1) Phosphorus Level 4.3 MG/DL (2.5-4.9) Albumin 2.2 G/DL (3.4-5.0) L Thyroid Stimulating Hormone (TSH) 2.106 uiU/mL (0.360-3.740) Current Medications Medications (Trade) Dose Ordered Sig/Dolly Route PRN Reason Start Time Stop Time Status Last Admin Dose Admin Albuterol/ Ipratropium (DuoNeb 0.5-3(2.5)mg/3ml) 3 ml EVERY 4 HOURS PRN HHN Shortness of Breath 04/05/17 22:00 04/10/17 21:59 Ascorbic Acid (Vitamin C) 500 mg TWICE A DAY GT 04/07/17 09:00 05/07/17 08:59 Dextrose (Dextrose 50%) STAT PRN IV Hypoglycemia 04/05/17 22:00 05/05/17 21:59 Dextrose (Dextrose 50%) STAT PRN IV Hypoglycemia 04/06/17 18:45 05/06/17 18:44 Heparin Sodium (Porcine) (Heparin 5000 units/ml) 5,000 units EVERY 12 HOURS SUBQ 04/06/17 09:00 05/06/17 08:59 04/06/17 20:23 Insulin Aspart (NovoLOG) BEFORE MEALS AND HS SUBQ 04/06/17 21:00 05/06/17 20:59 04/07/17 05:38 Levetiracetam (Keppra) 1,000 mg DAILY ORAL 04/06/17 09:00 05/06/17 08:59 04/06/17 09:29 Levothyroxine Sodium (Synthroid) 150 mcg DAILY GT 04/06/17 09:00 05/06/17 08:59 04/06/17 09:29 Lorazepam (Ativan 2mg/ml 1ml) 2 mg EVERY 2 HOURS PRN IV For Anxiety 04/05/17 22:00 04/12/17 21:59 Morphine Sulfate (Morphine Sulfate) 4 mg EVERY 4 HOURS PRN IVP Severe Pain (Pain Scale 7-10) 04/05/17 22:00 04/12/17 21:59 Ondansetron HCl (Zofran) 4 mg Q6H PRN IVP Nausea & Vomiting 04/05/17 22:00 05/05/17 21:59 Pantoprazole (Protonix) 40 mg DAILY IV 04/06/17 09:00 05/06/17 08:59 04/06/17 09:29 Piperacillin Sod/ Tazobactam Sod 3.375 gm/Sodium Chloride 110 ml @ 27.5 mls/hr Q8H IVPB 04/06/17 04:00 04/13/17 03:59 04/07/17 04:05 Polyethylene Glycol (Miralax) 17 gm DAILYPRN PRN ORAL Constipation 04/05/17 22:00 05/05/17 21:59 Sodium Chloride 1,000 ml @ 50 mls/hr Q20H IV 04/06/17 18:45 05/06/17 18:44 04/06/17 18:45 Vancomycin HCl (Vanco rx to dose) 1 ea DAILY MISC 04/06/17 09:00 05/06/17 08:59 Vancomycin HCl 1 gm/Dextrose 275 ml @ 183.3 mls/ hr Q24H IVPB 04/06/17 02:00 04/11/17 01:59 04/07/17 02:22 ROBERT TIM Apr 07, 2017 08:07
[2017-04-07] MEDS: Heparin 5000 units/ml inj SUBQ SCH ×2 (09:00→20:20)
[2017-04-07] MEDS: Ascorbic Acid 500mg tab GT SCH ×2 (09:13→18:14)
[2017-04-07] MEDS: Pantoprazole Inj IV SCH (09:14)
[2017-04-07 09:45] LABS: ABG ALLEN TEST POSITIVE; ABG BASE EXCESS -0.4
--- NOTE | 2017-04-07 10:07 | Diagnostic Imaging Report ---
Indication: Shortness of breath Comparison: 12/26/2016 Findings: Single view the chest shows cardiac size within normal limits. Pulmonary vasculature is normal. Lungs are clear. There is some increased left retrocardiac density obscuring the left hemidiaphragm. Underlying left basilar atelectasis/infiltrate and/or small left pleural effusion cannot be excluded. Tracheostomy tube is noted. Impression: No definite acute chest disease. Left retrocardiac density. Underlying left basilar atelectasis/infiltrate and/or small left pleural effusion cannot be excluded. Tracheostomy tube
[2017-04-07] MEDS ORDERED: Acetaminophen 650mg/20.3ml GT PRN (11:00)
[2017-04-07 12:00] VITALS: BP_SYST 125; BP_SYST 128; BP_DIAS 75
--- NOTE | 2017-04-07 12:12 | Pulmonology Progress Note ---
Assessment/Plan Assessment/Plan ASSESSMENT sepsis ( likely due to UTI) UTI possible PNA hematuria due to malpositioned Sears-resolved anemia VDRF/trach dysphagia G tube anoxic encephalopathy acute on CKD seizure disorder hypothyroidism PLAN OF CAER GALLO vent/trach care pulmonary toilet ABG with AC 14 -stable , keep settings as is and titrate as needed abx, ID follows fup with cx CXR No definite acute chest disease. Left retrocardiac density. Underlying left basilar atelectasis/infiltrate and/or small left pleural effusion cannot be excluded. fup with CXR in am monitor HH, transfuse prn anemia w/up Venous Duplex if negative place SCD seizure precautions, continue Keppra strict aspiration precautions, GT feeding, monitor tolerance., site care TSH WNL continue current dose of Levothyroxine gentle IVF renal US monitor renal parameters, lytes manually irrigate prn for clots labs still pending case discussed and evaluated by supervising physician Subjective Allergies: Coded Allergies: No Known Allergies (Unverified , 12/13/16) Subjective no respiratory distress on current settings febrile, labs pending Objective Last 24 Hour Vital Signs Date Time Temp Pulse Resp B/P (MAP) Pulse Ox O2 Delivery O2 Flow Rate FiO2 04/07/17 09:25 102 16 30 04/07/17 08:07 104 04/07/17 08:05 30 04/07/17 08:00 100.0 109 19 145/77 100 Non-Rebreather 109 04/07/17 07:05 109 17 30 04/07/17 05:21 108 14 30 04/07/17 04:00 99.1 19 128/76 98 Mechanical Ventilator 30 04/07/17 04:00 115 04/07/17 04:00 30 04/07/17 03:28 114 20 30 04/07/17 01:30 99.0 04/07/17 00:34 116 16 30 04/07/17 00:00 30 04/07/17 00:00 101.6 115 17 136/83 99 Mechanical Ventilator 30 04/07/17 00:00 114 04/06/17 23:13 120 23 30 04/06/17 21:17 108 16 30 04/06/17 20:00 99.1 117 18 132/74 99 Mechanical Ventilator 30 04/06/17 20:00 30 04/06/17 20:00 30 04/06/17 18:53 110 14 30 04/06/17 17:00 102 17 30 04/06/17 16:00 30 04/06/17 16:00 99.7 114 16 120/64 95 Mechanical Ventilator 30 04/06/17 16:00 115 04/06/17 15:15 109 16 30 04/06/17 13:02 106 16 30 Intake and Output 04/07/17 04/08/17 19:00 07:00 # Bowel Movements 1 Objective General Appearance: no apparent distress, lethargic, bedridden male Lines, tubes and drains: peripheral, trach, Gtube, Sears cath HEENT: status post trach, site clean Neck: trach - Portex #7, secretions moderate, yellow, thick Respiratory/Chest: lungs clear, no respiratory distress Cardiovascular/Chest: normal rate - SR on tele , regular rhythm, occasionally mild tachy up to 110 Abdomen: normal bowel sounds, non tender, soft, feeding tube - G tube, site clean Genitourinary/Rectal: Sears with pinkish urine, clearing Skin Exam: decub st 2 Neurologic: abnormal gait / bedridden, L hemiparesis , lethargic Microbiology Date/Time Source Procedure Growth Status 04/05/17 19:35 Blood Blood Culture - Preliminary NO GROWTH AFTER 24 HOURS Resulted 04/05/17 19:26 Blood Blood Culture - Preliminary NO GROWTH AFTER 24 HOURS Resulted 04/06/17 01:25 Indwelling Cath Urine Culture - Preliminary Resulted Laboratory Tests 04/07/17 04:00: Arterial Blood pH 7.401, Arterial Blood Partial Pressure CO2 40.0, Arterial Blood Partial Pressure O2 120.1H, Arterial Blood HCO3 24.3, Arterial Blood Oxygen Saturation 97.8, Arterial Blood Base Excess -0.4, Karson Test Positive Current Medications Medications (Trade) Dose Ordered Sig/Dolly Route PRN Reason Start Time Stop Time Status Last Admin Dose Admin Acetaminophen (Tylenol) 650 mg Q6H PRN GT Mild Pain/Temp > 100.5 04/07/17 11:00 05/07/17 10:59 Albuterol/ Ipratropium (DuoNeb 0.5-3(2.5)mg/3ml) 3 ml EVERY 4 HOURS PRN HHN Shortness of Breath 04/05/17 22:00 04/10/17 21:59 Ascorbic Acid (Vitamin C) 500 mg TWICE A DAY GT 10/15/17 09:00 05/07/17 08:59 04/07/17 09:13 Dextrose (Dextrose 50%) STAT PRN IV Hypoglycemia 04/05/17 22:00 05/05/17 21:59 Dextrose (Dextrose 50%) STAT PRN IV Hypoglycemia 04/06/17 18:45 05/06/17 18:44 Heparin Sodium (Porcine) (Heparin 5000 units/ml) 5,000 units EVERY 12 HOURS SUBQ 04/06/17 09:00 05/06/17 08:59 04/06/17 20:23 Insulin Aspart (NovoLOG) BEFORE MEALS AND HS SUBQ 04/06/17 21:00 05/06/17 20:59 04/07/17 05:38 Levetiracetam (Keppra) 1,000 mg DAILY ORAL 04/06/17 09:00 05/06/17 08:59 04/07/17 09:13 Levothyroxine Sodium (Synthroid) 150 mcg DAILY GT 04/06/17 09:00 05/06/17 08:59 04/07/17 09:14 Lorazepam (Ativan 2mg/ml 1ml) 2 mg EVERY 2 HOURS PRN IV For Anxiety 04/05/17 22:00 04/12/17 21:59 Morphine Sulfate (Morphine Sulfate) 4 mg EVERY 4 HOURS PRN IVP Severe Pain (Pain Scale 7-10) 04/05/17 22:00 04/12/17 21:59 Ondansetron HCl (Zofran) 4 mg Q6H PRN IVP Nausea & Vomiting 04/05/17 22:00 05/05/17 21:59 Pantoprazole (Protonix) 40 mg DAILY IV 04/06/17 09:00 05/06/17 08:59 04/07/17 09:14 Piperacillin Sod/ Tazobactam Sod 3.375 gm/Sodium Chloride 110 ml @ 27.5 mls/hr Q8H IVPB 04/06/17 04:00 04/13/17 03:59 04/07/17 04:05 Polyethylene Glycol (Miralax) 17 gm DAILYPRN PRN ORAL Constipation 04/05/17 22:00 05/05/17 21:59 Sodium Chloride 1,000 ml @ 50 mls/hr Q20H IV 04/06/17 18:45 05/06/17 18:44 04/06/17 18:45 Vancomycin HCl (Vanco rx to dose) 1 ea DAILY MISC 04/06/17 09:00 05/06/17 08:59 Vancomycin HCl 1 gm/Dextrose 275 ml @ 183.3 mls/ hr Q24H IVPB 04/06/17 02:00 04/11/17 01:59 04/07/17 02:22 Milton (David)Mehnaz NP Apr 07, 2017 12:11
[2017-04-07 16:00] VITALS: BP 133/7
[2017-04-07 20:00] VITALS: BP 111/73
[2017-04-08] VITALS: BP 128/82
[2017-04-08] MEDS: Vancomycin 1 GM in D5W 275 ML IVPB SCH (02:17)
[2017-04-08] MEDS: Piperacillin/Tazobactam 3.375 GM in NS 110 ML IVPB SCH ×3 (03:51→20:50)
[2017-04-08 04:00] VITALS: BP 135/75
[2017-04-08 04:11] LABS: MEAN CORPUSCULAR HEMOGLOBIN 30.8 PG (27.0-31.0); MEAN CORPUSCULAR HGB CONC 33.5 G/DL (32.0-36.0); MEAN CORPUSCULAR VOLUME 92 FL (80-99); MEAN PLATELET VOLUME 5.9 FL (6.5-10.1); PLATELET COUNT 329 K/UL (150-450); RED CELL DISTRIBUTION WIDTH 14.5 % (11.6-14.8); WHITE BLOOD COUNT 12.4 K/UL (4.8-10.8)
[2017-04-08 04:21] LABS: ANION GAP 10 (5-15); CALCIUM 8.7 MG/DL (8.5-10.1); CARBON DIOXIDE 25 MMOL/L (21-32); CHLORIDE 108 MMOL/L (98-107); CREATININE 0.9 MG/DL (0.55-1.30); GLOMERULAR FILTRATION RATE > 60 mL/min (>60); POTASSIUM 4.4 MMOL/L (3.5-5.1); SODIUM 142 MMOL/L (136-145)
[2017-04-08] MEDS: NovoLOG Insulin Flexpen SUBQ SCH ×3 (05:33→18:00)
[2017-04-08 05:41] LABS: BAND NEUTROPHILS % (MANUAL) 1 % (0-8); BASOPHILS % (MANUAL) 0 % (0-2); EOSINOPHILS % (MANUAL) 5 % (0-3); HYPOCHROMASIA 3+; LYMPHOCYTES % (MANUAL) 18 % (20-45); NEUTROPHILS % (MANUAL) 70 % (45-75); PLATELET ESTIMATE ADEQUATE; TOTAL CELLS COUNTED 100
[2017-04-08 05:42] LABS: ANISOCYTOSIS 1+; PLATELET MORPHOLOGY NORMAL; SPHEROCYTES 2+
[2017-04-08 08:00] VITALS: BP 151/75
[2017-04-08] MEDS: Heparin 5000 units/ml inj SUBQ SCH ×2 (09:00→20:54)
[2017-04-08] MEDS: Pantoprazole Inj IV SCH (09:25)
[2017-04-08] MEDS: Ascorbic Acid 500mg tab GT SCH ×2 (09:25→17:59)
--- NOTE | 2017-04-08 09:44 | Diagnostic Imaging Report ---
Indication: Acute renal failure, pain, hematuria Technique: Grayscale and duplex images of the kidneys, retroperitoneum, and bladder were obtained. Comparison:None Findings: Right kidney measures 10.1 cm in length. Left kidney measures 11.6 cm in length. Both kidneys demonstrate normal echogenicity. No hydronephrosis. No focal abnormality. Normal inferior vena cava. Bladder is empty, contains a Sears catheter. Impression: Negative for hydronephrosis Empty bladder with Sears catheter.
--- NOTE | 2017-04-08 10:32 | Diagnostic Imaging Report ---
Indication: SOB Technique: One view of the chest Comparison: 04/07/2017 Findings: There is some scarring at the left lung base. There is a tracheostomy. Heart size is normal. Findings are unchanged Impression: Unchanged, over one day, findings as above.
[2017-04-08 12:00] VITALS: BP 113/70
--- NOTE | 2017-04-08 12:00 | Pulmonology Progress Note ---
Assessment/Plan Problems: (1) Sepsis (2) Chronic respiratory failure (3) Low grade fever (4) Tracheostomy in place (5) Urethral obstruction (6) Gross hematuria (7) Feeding by G-tube (8) Severe anoxic-ischemic encephalopathy Respiratory: monitor respiratory rate, adjust FIO2, CXR Cardiac: continue pressors, continue to monitor HR/BP Renal: F/U I&O, keep IV fluid, increase IV fluid Infectious Disease: check cultures Gastrointestinal: continue feedings/current rate Endocrine: monitor blood sugar, check HgA1C, continue sliding scale insulin Hematologic: transfuse if hgb<8.5 Neurologic: PRN Ativan, PRN Morphine, keep patient comfortable Disposition: transfer to Time Spent (Minutes): 30 Notes Reviewed: storeroom attendant, cardio Discussed with: nurses, consultants, classification case manager Subjective ROS Limited/Unobtainable: Yes Allergies: Coded Allergies: No Known Allergies (Unverified , 12/13/16) Objective Last 24 Hour Vital Signs Date Time Temp Pulse Resp B/P (MAP) Pulse Ox O2 Delivery O2 Flow Rate FiO2 04/08/17 09:11 102 14 30 04/08/17 08:00 98.4 101 20 151/75 100 Mechanical Ventilator 30 04/08/17 07:25 113 23 30 04/08/17 05:27 121 18 30 04/08/17 04:00 98.8 112 18 135/75 100 Mechanical Ventilator 110 04/08/17 04:00 111 04/08/17 04:00 30 04/08/17 03:54 113 18 30 04/08/17 01:00 111 14 30 04/08/17 00:00 98.2 110 18 128/82 100 Mechanical Ventilator 112 04/08/17 00:00 30 04/08/17 00:00 116 04/07/17 23:19 113 16 30 04/07/17 20:41 91 16 30 04/07/17 20:00 106 04/07/17 20:00 30 04/07/17 20:00 30 04/07/17 20:00 98.6 110 16 111/73 100 Mechanical Ventilator 110 04/07/17 19:00 97 14 30 04/07/17 17:25 100 17 30 04/07/17 16:25 87 04/07/17 16:24 30 04/07/17 16:00 98.2 104 20 133/7 100 Mechanical Ventilator 104 04/07/17 15:02 101 18 30 04/07/17 13:17 105 15 30 04/07/17 12:00 109 04/07/17 12:00 99.7 97 15 125/75 100 Mechanical Ventilator 30 04/07/17 12:00 99.7 97 15 128/75 100 Mechanical Ventilator 30 97 04/07/17 12:00 30 Intake and Output 04/08/17 04/09/17 19:00 07:00 Intake Total 177.5 ml Balance 177.5 ml IV Total 177.5 ml General Appearance: WD/WN, no acute distress HEENT: atraumatic Respiratory/Chest: lungs clear, normal breath sounds Cardiovascular: normal rate, regular rhythm Abdomen: normal bowel sounds, soft, non tender Extremities: no cyanosis, no clubbing Skin: no lesions Neurologic/Psychiatric: furnace 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 Complete 04/06/17 01:25 Indwelling Cath Urine Culture - Preliminary Gram Negative Bacillus 1 Resulted 04/06/17 01:25 Rectum VRE Culture - Final Enterococcus Faecalis - Vre Complete Laboratory Tests 04/08/17 02:50: White Blood Count 12.4H, Red Blood Count 2.40L, Hemoglobin 7.4L, Hematocrit 22.0L, Mean Corpuscular Volume 92, Mean Corpuscular Hemoglobin 30.8, Mean Corpuscular Hemoglobin Concent 33.5, Red Cell Distribution Width 14.5, Platelet Count 329, Mean Platelet Volume 5.9L, Neutrophils (%) (Auto) , Lymphocytes (%) ( Auto) , Monocytes (%) (Auto) , Eosinophils (%) (Auto) , Basophils (%) (Auto) , Differential Total Cells Counted 100, Neutrophils % (Manual) 70, Lymphocytes % ( Manual) 18L, Monocytes % (Manual) 6, Eosinophils % (Manual) 5H, Basophils % ( Manual) 0, Band Neutrophils 1, Platelet Estimate Adequate, Platelet Morphology Normal, Hypochromasia 3+, Anisocytosis 1+, Spherocytes 2+, Sodium Level 142, Potassium Level 4.4, Chloride Level 108H, Carbon Dioxide Level 25, Anion Gap 10 , Blood Urea Nitrogen 19H, Creatinine 0.9, Estimat Glomerular Filtration Rate > 60, Glucose Level 162H, Calcium Level 8.7 Current Medications Medications (Trade) Dose Ordered Sig/Dolly Route PRN Reason Start Time Stop Time Status Last Admin Dose Admin Acetaminophen (Tylenol) 650 mg Q6H PRN GT Mild Pain/Temp > 100.5 04/07/17 11:00 05/07/17 10:59 Albuterol/ Ipratropium (DuoNeb 0.5-3(2.5)mg/3ml) 3 ml EVERY 4 HOURS PRN HHN Shortness of Breath 04/05/17 22:00 04/10/17 21:59 Ascorbic Acid (Vitamin C) 500 mg TWICE A DAY GT 04/07/17 09:00 05/07/17 08:59 04/08/17 09:25 Dextrose (Dextrose 50%) STAT PRN IV Hypoglycemia 04/05/17 22:00 05/05/17 21:59 Dextrose (Dextrose 50%) STAT PRN IV Hypoglycemia 04/06/17 18:45 05/06/17 18:44 Heparin Sodium (Porcine) (Heparin 5000 units/ml) 5,000 units EVERY 12 HOURS SUBQ 04/06/17 09:00 05/06/17 08:59 04/07/17 20:20 Insulin Aspart (NovoLOG) EVERY 6 HOURS SUBQ 04/08/17 12:00 05/06/17 20:59 Levetiracetam (Keppra) 1,000 mg DAILY ORAL 04/06/17 09:00 05/06/17 08:59 04/08/17 09:24 Levothyroxine Sodium (Synthroid) 150 mcg DAILY GT 04/06/17 09:00 05/06/17 08:59 04/08/17 09:23 Lorazepam (Ativan 2mg/ml 1ml) 2 mg EVERY 2 HOURS PRN IV For Anxiety 04/05/17 22:00 04/12/17 21:59 Morphine Sulfate (Morphine Sulfate) 4 mg EVERY 4 HOURS PRN IVP Severe Pain (Pain Scale 7-10) 04/05/17 22:00 04/12/17 21:59 Ondansetron HCl (Zofran) 4 mg Q6H PRN IVP Nausea & Vomiting 04/05/17 22:00 05/05/17 21:59 Pantoprazole (Protonix) 40 mg DAILY IV 04/06/17 09:00 05/06/17 08:59 04/08/17 09:25 Piperacillin Sod/ Tazobactam Sod 3.375 gm/Sodium Chloride 110 ml @ 27.5 mls/hr Q8H IVPB 04/06/17 04:00 04/13/17 03:59 04/08/17 03:51 Polyethylene Glycol (Miralax) 17 gm DAILYPRN PRN ORAL Constipation 04/05/17 22:00 05/05/17 21:59 Sodium Chloride 1,000 ml @ 50 mls/hr Q20H IV 04/06/17 18:45 05/06/17 18:44 04/08/17 10:52 Vancomycin HCl (Vanco rx to dose) 1 ea DAILY PRN MISC rx to dose 04/08/17 10:00 05/06/17 08:59 Vancomycin HCl 1 gm/Dextrose 275 ml @ 183.3 mls/ hr Q24H IVPB 04/06/17 02:00 04/11/17 01:59 04/08/17 02:17 REY YAN Apr 08, 2017 12:00
--- NOTE | 2017-04-08 14:46 | Infectious Diseases Prog Note ---
Assessment/Plan Assessment/Plan Abx: IV Vancomycin 04/06- IV Zosyn 04/06- IV Unasyn x1 03/26 Flagyl x1 03/26 Assesment: Sepsis- likely 2ry to UTI and bacteremia; improving -u/a WBC 5-10, nit neg, leuk +3, RBC tntc; ucx 10-20K GNB (ID and sensi pending) -Bcx 04/05 1/4 GPC in clusters (?true vs contaminant) -CXR 04/08: There is some scarring at the left lung base -CT abd/p w/: Malpositioned Munguia, balloon in the prostatic urethra. Distention of urinary bladder. High attenuation material worrisome for hemorrhage however other history or underlying mass lesion is not excluded. Small amount of air in the urinary bladder may be from Munguia catheter. Mild ectasia of the bilateral renal collecting systems. This may be from mild urinary bladder obstruction. Otherwise, kidneys are normal. Percutaneous gastric tube. No free fluid or free air. No bowel obstruction. -Renal US: no hydronephrosis Fever/ leukocytosis (possible hemorrhage contributing)- 2ry to above; improving Hematuria- possibly traumatic given malposition of munguia- r/o malignancy Plan: -Continue IV Vancomycin and Zosyn #3 for now pending ID Bcx and Ucx, respectively -repeat 2 sets of Bcx -f/u cx -Monitor CBC/BMP, temperatures Thank you for this consultation. Will continue to follow along with you. Discussed with RN. Subjective Allergies: Coded Allergies: No Known Allergies (Unverified , 12/13/16) Subjective afebrile in 24hrs leukocytosis trending down bacteremic / GPC clusters 04/05 Objective Vital Signs Last 24 Hour Vital Signs Date Time Temp Pulse Resp B/P (MAP) Pulse Ox O2 Delivery O2 Flow Rate FiO2 04/08/17 12:40 102 18 30 04/08/17 12:00 98 04/08/17 12:00 98.7 111 20 113/70 97 Mechanical Ventilator 30 04/08/17 12:00 30 04/08/17 11:29 100 19 30 04/08/17 09:11 102 14 30 04/08/17 08:00 30 04/08/17 08:00 98.4 101 20 151/75 100 Mechanical Ventilator 30 04/08/17 08:00 107 04/08/17 07:25 113 23 30 04/08/17 05:27 121 18 30 04/08/17 04:00 98.8 112 18 135/75 100 Mechanical Ventilator 110 04/08/17 04:00 111 04/08/17 04:00 30 04/08/17 03:54 113 18 30 04/08/17 01:00 111 14 30 04/08/17 00:00 98.2 110 18 128/82 100 Mechanical Ventilator 112 04/08/17 00:00 30 04/08/17 00:00 116 04/07/17 23:19 113 16 30 04/07/17 20:41 91 16 30 04/07/17 20:00 106 04/07/17 20:00 30 04/07/17 20:00 30 04/07/17 20:00 98.6 110 16 111/73 100 Mechanical Ventilator 110 04/07/17 19:00 97 14 30 04/07/17 17:25 100 17 30 04/07/17 16:25 87 04/07/17 16:24 30 04/07/17 16:00 98.2 104 20 133/7 100 Mechanical Ventilator 104 04/07/17 15:02 101 18 30 Height (Feet): 5 Height (Inches): 4.00 Weight (Pounds): 130 Objective General Appearance: chronically ill, not in distress HEENT, atraumatic, PERRL, bilateral eye, EOMI, no oral lesions Neck: normal inspection, supple, trach in place Respiratory: coarse Breath sounds Cardiovascular regular rate, rhythm, no edema Gastrointestinal: normal inspection, normal bowel sounds, non tender, soft, no guarding,GT in place (no signs of inefction) Neurologic: encephalopatic Skin: normal inspection, normal color, no rash Microbiology Date/Time Source Procedure Growth Status 04/05/17 19:35 Blood Blood Culture - Preliminary Resulted 04/05/17 19:26 Blood Blood Culture - Preliminary NO GROWTH AFTER 48 HOURS Resulted 04/06/17 01:25 Nasal Nares MRSA Culture - Final NO METHICILLIN RESISTANT STAPH AUREUS... Complete 04/06/17 01:25 Indwelling Cath Urine Culture - Preliminary Gram Negative Bacillus 1 Resulted 04/06/17 01:25 Rectum VRE Culture - Final Enterococcus Faecalis - Vre Complete Laboratory Tests Test 04/08/17 02:50 White Blood Count 12.4 K/UL (4.8-10.8) H Red Blood Count 2.40 M/UL (4.70-6.10) L Hemoglobin 7.4 G/DL (14.2-18.0) L Hematocrit 22.0 % (42.0-52.0) L Mean Corpuscular Volume 92 FL (80-99) Mean Corpuscular Hemoglobin 30.8 PG (27.0-31.0) Mean Corpuscular Hemoglobin Concent 33.5 G/DL (32.0-36.0) Red Cell Distribution Width 14.5 % (11.6-14.8) Platelet Count 329 K/UL (150-450) Mean Platelet Volume 5.9 FL (6.5-10.1) L Neutrophils (%) (Auto) % (45.0-75.0) Lymphocytes (%) (Auto) % (20.0-45.0) Monocytes (%) (Auto) % (1.0-10.0) Eosinophils (%) (Auto) % (0.0-3.0) Basophils (%) (Auto) % (0.0-2.0) Differential Total Cells Counted 100 Neutrophils % (Manual) 70 % (45-75) Lymphocytes % (Manual) 18 % (20-45) L Monocytes % (Manual) 6 % (1-10) Eosinophils % (Manual) 5 % (0-3) H Basophils % (Manual) 0 % (0-2) Band Neutrophils 1 % (0-8) Platelet Estimate Adequate Platelet Morphology Normal Hypochromasia 3+ Anisocytosis 1+ Spherocytes 2+ Sodium Level 142 MMOL/L (136-145) Potassium Level 4.4 MMOL/L (3.5-5.1) Chloride Level 108 MMOL/L (98-107) H Carbon Dioxide Level 25 MMOL/L (21-32) Anion Gap 10 (5-15) Blood Urea Nitrogen 19 mg/dL (7-18) H Creatinine 0.9 MG/DL (0.55-1.30) Estimat Glomerular Filtration Rate > 60 mL/min (>60) Glucose Level 162 MG/DL (74-106) H Calcium Level 8.7 MG/DL (8.5-10.1) Current Medications Medications (Trade) Dose Ordered Sig/Dolly Route PRN Reason Start Time Stop Time Status Last Admin Dose Admin Acetaminophen (Tylenol) 650 mg Q6H PRN GT Mild Pain/Temp > 100.5 04/07/17 11:00 05/07/17 10:59 Albuterol/ Ipratropium (DuoNeb 0.5-3(2.5)mg/3ml) 3 ml EVERY 4 HOURS PRN HHN Shortness of Breath 04/05/17 22:00 04/10/17 21:59 Ascorbic Acid (Vitamin C) 500 mg TWICE A DAY GT 04/07/17 09:00 05/07/17 08:59 04/08/17 09:25 Dextrose (Dextrose 50%) STAT PRN IV Hypoglycemia 04/05/17 22:00 05/05/17 21:59 Dextrose (Dextrose 50%) STAT PRN IV Hypoglycemia 04/06/17 18:45 05/06/17 18:44 Heparin Sodium (Porcine) (Heparin 5000 units/ml) 5,000 units EVERY 12 HOURS SUBQ 04/06/17 09:00 05/06/17 08:59 04/07/17 20:20 Insulin Aspart (NovoLOG) EVERY 6 HOURS SUBQ 04/08/17 12:00 05/06/17 20:59 04/08/17 11:57 Levetiracetam (Keppra) 1,000 mg DAILY ORAL 04/06/17 09:00 05/06/17 08:59 04/08/17 09:24 Levothyroxine Sodium (Synthroid) 150 mcg DAILY GT 04/06/17 09:00 05/06/17 08:59 04/08/17 09:23 Lorazepam (Ativan 2mg/ml 1ml) 2 mg EVERY 2 HOURS PRN IV For Anxiety 04/05/17 22:00 04/12/17 21:59 Morphine Sulfate (Morphine Sulfate) 4 mg EVERY 4 HOURS PRN IVP Severe Pain (Pain Scale 7-10) 04/05/17 22:00 04/12/17 21:59 Ondansetron HCl (Zofran) 4 mg Q6H PRN IVP Nausea & Vomiting 04/05/17 22:00 05/05/17 21:59 Pantoprazole (Protonix) 40 mg DAILY IV 04/06/17 09:00 05/06/17 08:59 04/08/17 09:25 Piperacillin Sod/ Tazobactam Sod 3.375 gm/Sodium Chloride 110 ml @ 27.5 mls/hr Q8H IVPB 04/06/17 04:00 04/13/17 03:59 04/08/17 12:01 Polyethylene Glycol (Miralax) 17 gm DAILYPRN PRN ORAL Constipation 04/05/17 22:00 05/05/17 21:59 Sodium Chloride 1,000 ml @ 50 mls/hr Q20H IV 04/06/17 18:45 05/06/17 18:44 04/08/17 10:52 Vancomycin HCl (Vanco rx to dose) 1 ea DAILY PRN MISC rx to dose 04/08/17 10:00 05/06/17 08:59 Vancomycin HCl 1 gm/Dextrose 275 ml @ 183.3 mls/ hr Q24H IVPB 04/06/17 02:00 04/11/17 01:59 04/08/17 02:17 Pastora Yeboah M.D. Apr 08, 2017 14:46
[2017-04-08 16:00] VITALS: BP 121/62
[2017-04-08 20:00] VITALS: BP 116/60
--- NOTE | 2017-04-08 21:26 | Wound Care Consultation ---
Wound Assessment Wound Assessment #1: Wound Number: 1 Wound Present on Admission: Yes New Wound: No Status Change of Wound: No Wound Location Body Site Modif: mid Wound Location Body Site: sacral Wound Type: pressure ulcer Gaby Test: Does not Gaby Pressure Ulcer Stage: Unstageable Wound Thickness: Full Thickness Wound Length: 4.0 Wound Width: 5.5 Wound Depth: utd Percent of Wound [place]/Red: 20 Percent of Wound Bed Yellow/Wh: 80 Wound Drainage Description: Serosanguineous Wound Drainage Amount: Scant Wound Drainage Odor: None/Absent Tissue Surrounding Wound: Macerated Wound General Appearance: Reddened - yellow, Draining Wound Assessment #2: Wound Number: 2 Wound Present on Admission: Yes New Wound: No Status Change of Wound: No Wound Location Body Site Modif: left Wound Location Body Site: metatarsal head - 1st Wound Type: pressure ulcer Gaby Test: Does not Gaby Pressure Ulcer Stage: II Wound Thickness: Partial Thickness Wound Length: 1.0 Wound Width: 1.0 Wound Depth: less than 0.1 Percent of Wound [place]/Red: 100 Wound Drainage Description: Serosanguineous Wound Drainage Amount: Scant Wound Drainage Odor: None/Absent Tissue Surrounding Wound: scar tissue Wound General Appearance: Reddened, Draining Wound Assessment #3: Wound Number: 3 Wound Present on Admission: Yes New Wound: No Status Change of Wound: No Wound Location Body Site Modif: right, lower, anterior Wound Location Body Site: leg Wound Type: scab Gaby Test: Does not Gaby Wound Thickness: Full Thickness Wound Length: 1.0 Wound Width: 1.0 Percent of Wound [place]/Red: 100 Wound Drainage Description: Serosanguineous Wound Drainage Amount: Scant Wound Drainage Odor: None/Absent Tissue Surrounding Wound: Intact Wound General Appearance: Reddened, Draining Wound Assessment #4: Wound Number: 4 Wound Present on Admission: Yes New Wound: No Status Change of Wound: No Wound Location Body Site Modif: upper Wound Location Body Site: other - upper body Wound Type: rash Gaby Test: Does not Gaby Wound Drainage Amount: None Wound Drainage Odor: None/Absent Tissue Surrounding Wound: Intact Wound Comment #1 Sacral unstageable pressure ulcer #2 Left lateral 1st metatarsal head stage II pressure ulcer #3 Right lower leg with scab with scant drainage #4 Rashes on upper body area Recommendation -Sacral unstageable pressure ulcer and Left lateral 1st metatarsal head stage II pressure ulcer Cleanse with saline, pat dry, apply Triad cream, cover with Biatain silicone daily and PRN soiled/dislodged -Keep clean and dry -Turn and reposition -Optimize nutrition -Offload both heels -Heel protector on both heels -Low air loss SPR mattress -Assess and f/u accordingly for any changes DOUG CHATTERJEE RN Apr 08, 2017 21:26
[2017-04-09] VITALS: BP 101/61
[2017-04-09] MEDS: Vancomycin 1 GM in D5W 275 ML IVPB SCH (01:57)
[2017-04-09 02:12] LABS: INR 1.1 (0.9-1.1)
[2017-04-09 02:21] LABS: ALANINE AMINOTRANSFERASE 17 U/L (12-78); ALBUMIN/GLOBULIN RATIO 0.4 (1.0-2.7); ANION GAP 8 mmol/L (5-15); ASPARTATE AMINO TRANSFERASE 19 U/L (15-37); CALCIUM 8.5 MG/DL (8.5-10.1); CARBON DIOXIDE 28 MMOL/L (21-32); CHLORIDE 110 MMOL/L (98-107); CREATININE 0.9 MG/DL (0.55-1.30); GLOMERULAR FILTRATION RATE > 60 mL/min (>60); PHOSPHORUS 3.5 MG/DL (2.5-4.9); POTASSIUM 4.1 MMOL/L (3.5-5.1); SODIUM 145 MMOL/L (136-145); TOTAL PROTEIN 6.8 G/DL (6.4-8.2)
[2017-04-09 02:22] LABS: MEAN CORPUSCULAR HEMOGLOBIN 30.7 PG (27.0-31.0); MEAN CORPUSCULAR HGB CONC 34.1 G/DL (32.0-36.0); MEAN CORPUSCULAR VOLUME 90 FL (80-99); MEAN PLATELET VOLUME 6.3 FL (6.5-10.1); PLATELET COUNT 320 K/UL (150-450); RED BLOOD COUNT 2.59 M/UL (4.70-6.10); RED CELL DISTRIBUTION WIDTH 14.3 % (11.6-14.8); WHITE BLOOD COUNT 10.3 K/UL (4.8-10.8)
[2017-04-09 02:59] LABS: BAND NEUTROPHILS % (MANUAL) 0 % (0-8); BASOPHILS % (MANUAL) 0 % (0-2); EOSINOPHILS % (MANUAL) 11 % (0-3); LYMPHOCYTES % (MANUAL) 27 % (20-45); NEUTROPHILS % (MANUAL) 59 % (45-75); PLATELET ESTIMATE ADEQUATE; PLATELET MORPHOLOGY NORMAL; TOTAL CELLS COUNTED 100
[2017-04-09] MEDS: Piperacillin/Tazobactam 3.375 GM in NS 110 ML IVPB SCH ×3 (03:34→19:42)
[2017-04-09 04:00] VITALS: BP 120/77
[2017-04-09] MEDS: NovoLOG Insulin Flexpen SUBQ SCH ×4 (06:22→17:24)
[2017-04-09 08:00] VITALS: BP 135/74
[2017-04-09] MEDS: Ascorbic Acid 500mg tab GT SCH ×2 (08:58→17:21)
[2017-04-09] MEDS: Pantoprazole Inj IV SCH (08:59)
[2017-04-09] MEDS: Heparin 5000 units/ml inj SUBQ SCH ×2 (09:01→20:01)
--- NOTE | 2017-04-09 10:33 | Infectious Diseases Prog Note ---
Assessment/Plan Assessment/Plan Assessment: Sepsis- likely 2ry to UTI and bacteremia; resolved -u/a WBC 5-10, nit neg, leuk +3, RBC tntc; ucx 10-20K P.mirabilis -Bcx 04/05 14 CONS, m/l contaminant -CXR 04/08: There is some scarring at the left lung base -CT abd/p w/: Malpositioned Munguia, balloon in the prostatic urethra. Distention of urinary bladder. High attenuation material worrisome for hemorrhage however other history or underlying mass lesion is not excluded. Small amount of air in the urinary bladder may be from Munguia catheter. Mild ectasia of the bilateral renal collecting systems. This may be from mild urinary bladder obstruction. Otherwise, kidneys are normal. Percutaneous gastric tube. No free fluid or free air. No bowel obstruction. 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 Full Code Plan: -Continue IV Vancomycin and Zosyn # 4 / 5 -f/u cx -Monitor CBC/BMP, temperatures Subjective Allergies: Coded Allergies: No Known Allergies (Unverified , 12/13/16) Subjective fevers, leukocytosis resolved cultures, imaging noted Objective Vital Signs Last 24 Hour Vital Signs Date Time Temp Pulse Resp B/P (MAP) Pulse Ox O2 Delivery O2 Flow Rate FiO2 04/09/17 09:25 77 14 30 04/09/17 08:00 98.7 101 14 135/74 98 Mechanical Ventilator 30 04/09/17 07:13 95 14 30 04/09/17 04:33 87 14 30 04/09/17 04:00 99.3 99 18 120/77 100 Mechanical Ventilator 30 04/09/17 04:00 97 04/09/17 04:00 30 04/09/17 02:30 93 14 30 04/09/17 01:00 97 16 30 04/09/17 00:00 91 04/09/17 00:00 99.3 96 14 101/61 100 Mechanical Ventilator 30 04/08/17 22:50 94 14 30 04/08/17 21:32 101 15 Mechanical Ventilator 30 04/08/17 21:22 101 15 30 04/08/17 21:00 30 04/08/17 20:00 97.6 72 18 116/60 99 Mechanical Ventilator 30 04/08/17 20:00 96 04/08/17 19:26 79 14 30 04/08/17 16:58 100 15 30 04/08/17 16:00 94 04/08/17 16:00 30 04/08/17 16:00 97.6 93 20 121/62 99 Mechanical Ventilator 30 04/08/17 15:28 100 16 30 04/08/17 12:40 102 18 30 04/08/17 12:00 98 04/08/17 12:00 98.7 111 20 113/70 97 Mechanical Ventilator 30 04/08/17 12:00 30 04/08/17 11:29 100 19 30 Height (Feet): 5 Height (Inches): 4.00 Weight (Pounds): 130 Laboratory Tests Test 04/09/17 01:40 White Blood Count 10.3 K/UL (4.8-10.8) Red Blood Count 2.59 M/UL (4.70-6.10) L Hemoglobin 7.9 G/DL (14.2-18.0) L Hematocrit 23.3 % (42.0-52.0) L Mean Corpuscular Volume 90 FL (80-99) Mean Corpuscular Hemoglobin 30.7 PG (27.0-31.0) Mean Corpuscular Hemoglobin Concent 34.1 G/DL (32.0-36.0) Red Cell Distribution Width 14.3 % (11.6-14.8) Platelet Count 320 K/UL (150-450) Mean Platelet Volume 6.3 FL (6.5-10.1) L Neutrophils (%) (Auto) % (45.0-75.0) Lymphocytes (%) (Auto) % (20.0-45.0) Monocytes (%) (Auto) % (1.0-10.0) Eosinophils (%) (Auto) % (0.0-3.0) Basophils (%) (Auto) % (0.0-2.0) Differential Total Cells Counted 100 Neutrophils % (Manual) 59 % (45-75) Lymphocytes % (Manual) 27 % (20-45) Monocytes % (Manual) 3 % (1-10) Eosinophils % (Manual) 11 % (0-3) H Basophils % (Manual) 0 % (0-2) Band Neutrophils 0 % (0-8) Platelet Estimate Adequate Platelet Morphology Normal Red Blood Cell Morphology Normal Prothrombin Time 11.0 SEC (9.30-11.50) Prothromb Time International Ratio 1.1 (0.9-1.1) Activated Partial Thromboplast Time 33 SEC (23-33) Sodium Level 145 MMOL/L (136-145) Potassium Level 4.1 MMOL/L (3.5-5.1) Chloride Level 110 MMOL/L (98-107) H Carbon Dioxide Level 28 MMOL/L (21-32) Anion Gap 8 mmol/L (5-15) Blood Urea Nitrogen 17 mg/dL (7-18) Creatinine 0.9 MG/DL (0.55-1.30) Estimat Glomerular Filtration Rate > 60 mL/min (>60) Glucose Level 113 MG/DL (74-106) H Calcium Level 8.5 MG/DL (8.5-10.1) Phosphorus Level 3.5 MG/DL (2.5-4.9) Magnesium Level 2.0 MG/DL (1.8-2.4) Total Bilirubin 0.2 MG/DL (0.2-1.0) Aspartate Amino Transf (AST/SGOT) 19 U/L (15-37) Alanine Aminotransferase (ALT/SGPT) 17 U/L (12-78) Alkaline Phosphatase 55 U/L (46-116) Total Protein 6.8 G/DL (6.4-8.2) Albumin 2.0 G/DL (3.4-5.0) L Globulin 4.8 g/dL Albumin/Globulin Ratio 0.4 (1.0-2.7) L Vancomycin Level Trough 9.8 ug/mL (5.0-12.0) Current Medications Medications (Trade) Dose Ordered Sig/Dolly Route PRN Reason Start Time Stop Time Status Last Admin Dose Admin Acetaminophen (Tylenol) 650 mg Q6H PRN GT Mild Pain/Temp > 100.5 04/07/17 11:00 05/07/17 10:59 Albuterol/ Ipratropium (DuoNeb 0.5-3(2.5)mg/3ml) 3 ml EVERY 4 HOURS PRN HHN Shortness of Breath 04/05/17 22:00 10/18/17 21:59 Ascorbic Acid (Vitamin C) 500 mg TWICE A DAY GT 04/07/17 09:00 05/07/17 08:59 04/09/17 08:58 Clotrimazole (Lotrimin) 1 applic EVERY 12 HOURS TOPIC 04/08/17 23:00 05/08/17 22:59 04/09/17 09:16 Dextrose (Dextrose 50%) STAT PRN IV Hypoglycemia 04/05/17 22:00 05/05/17 21:59 Dextrose (Dextrose 50%) STAT PRN IV Hypoglycemia 04/06/17 18:45 05/06/17 18:44 Heparin Sodium (Porcine) (Heparin 5000 units/ml) 5,000 units EVERY 12 HOURS SUBQ 04/06/17 09:00 05/06/17 08:59 04/09/17 09:01 Insulin Aspart (NovoLOG) EVERY 6 HOURS SUBQ 04/08/17 12:00 05/06/17 20:59 04/09/17 06:22 Levetiracetam (Keppra) 1,000 mg DAILY ORAL 04/06/17 09:00 05/06/17 08:59 04/09/17 08:58 Levothyroxine Sodium (Synthroid) 150 mcg DAILY GT 04/06/17 09:00 05/06/17 08:59 04/09/17 08:58 Lorazepam (Ativan 2mg/ml 1ml) 2 mg EVERY 2 HOURS PRN IV For Anxiety 04/05/17 22:00 04/12/17 21:59 Morphine Sulfate (Morphine Sulfate) 4 mg EVERY 4 HOURS PRN IVP Severe Pain (Pain Scale 7-10) 04/05/17 22:00 04/12/17 21:59 Ondansetron HCl (Zofran) 4 mg Q6H PRN IVP Nausea & Vomiting 04/05/17 22:00 05/05/17 21:59 Pantoprazole (Protonix) 40 mg DAILY IV 04/06/17 09:00 05/06/17 08:59 04/09/17 08:59 Piperacillin Sod/ Tazobactam Sod 3.375 gm/Sodium Chloride 110 ml @ 27.5 mls/hr Q8H IVPB 04/06/17 04:00 04/13/17 03:59 04/09/17 03:34 Polyethylene Glycol (Miralax) 17 gm DAILYPRN PRN ORAL Constipation 04/05/17 22:00 05/05/17 21:59 Sodium Chloride 1,000 ml @ 50 mls/hr Q20H IV 04/06/17 18:45 05/06/17 18:44 04/09/17 07:08 Vancomycin HCl (Vanco rx to dose) 1 ea DAILY PRN MISC rx to dose 04/08/17 10:00 05/06/17 08:59 Vancomycin HCl 1 gm/Dextrose 275 ml @ 183.3 mls/ hr Q24H IVPB 04/06/17 02:00 04/11/17 01:59 04/09/17 01:57 FRANCOIS SANDOVAL Apr 09, 2017 10:33
--- NOTE | 2017-04-09 10:38 | Pulmonology Progress Note ---
Assessment/Plan Problems: (1) Sepsis (2) Chronic respiratory failure (3) Low grade fever (4) Tracheostomy in place (5) Urethral obstruction (6) Gross hematuria (7) Feeding by G-tube (8) Severe anoxic-ischemic encephalopathy Respiratory: monitor respiratory rate, adjust FIO2, CXR Cardiac: continue to monitor HR/BP Renal: F/U I&O, keep IV fluid Infectious Disease: check cultures Gastrointestinal: continue feedings/current rate Endocrine: monitor blood sugar Hematologic: monitor H/H Neurologic: PRN Ativan, PRN Morphine Prophylaxis: Protonix Notes Reviewed: ID Discussed with: nurses, consultants, pillowcase sewer Subjective ROS Limited/Unobtainable: Yes Constitutional: Reports: no symptoms HEENT: Repors: no symptoms Respiratory: Reports: no symptoms Allergies: Coded Allergies: No Known Allergies (Unverified , 12/13/16) Objective Last 24 Hour Vital Signs Date Time Temp Pulse Resp B/P (MAP) Pulse Ox O2 Delivery O2 Flow Rate FiO2 04/09/17 09:25 77 14 30 04/09/17 08:00 98.7 101 14 135/74 98 Mechanical Ventilator 30 04/09/17 07:13 95 14 30 04/09/17 04:33 87 14 30 04/09/17 04:00 99.3 99 18 120/77 100 Mechanical Ventilator 30 04/09/17 04:00 97 04/09/17 04:00 30 04/09/17 02:30 93 14 30 04/09/17 01:00 97 16 30 04/09/17 00:00 91 04/09/17 00:00 99.3 96 14 101/61 100 Mechanical Ventilator 30 04/08/17 22:50 94 14 30 04/08/17 21:32 101 15 Mechanical Ventilator 30 04/08/17 21:22 101 15 30 04/08/17 21:00 30 04/08/17 20:00 97.6 72 18 116/60 99 Mechanical Ventilator 30 04/08/17 20:00 96 04/08/17 19:26 79 14 30 04/08/17 16:58 100 15 30 04/08/17 16:00 94 04/08/17 16:00 30 04/08/17 16:00 97.6 93 20 121/62 99 Mechanical Ventilator 30 04/08/17 15:28 100 16 30 04/08/17 12:40 102 18 30 04/08/17 12:00 98 04/08/17 12:00 98.7 111 20 113/70 97 Mechanical Ventilator 30 04/08/17 12:00 30 04/08/17 11:29 100 19 30 General Appearance: WD/WN HEENT: normocephalic, atraumatic Respiratory/Chest: chest wall non-tender, lungs clear Cardiovascular: normal peripheral pulses, normal rate Abdomen: normal bowel sounds, soft, non tender Genitourinary: normal external genitalia Skin: no rash, no lesions Neurologic/Psychiatric: consulting solution director 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, no motor/sensory deficits Lymphatic: no neck adenopathy Laboratory Tests 04/09/17 01:40: White Blood Count 10.3, Red Blood Count 2.59L, Hemoglobin 7.9L, Hematocrit 23.3L , Mean Corpuscular Volume 90, Mean Corpuscular Hemoglobin 30.7, Mean Corpuscular Hemoglobin Concent 34.1, Red Cell Distribution Width 14.3, Platelet Count 320, Mean Platelet Volume 6.3L, Neutrophils (%) (Auto) , Lymphocytes (%) ( Auto) , Monocytes (%) (Auto) , Eosinophils (%) (Auto) , Basophils (%) (Auto) , Differential Total Cells Counted 100, Neutrophils % (Manual) 59, Lymphocytes % ( Manual) 27, Monocytes % (Manual) 3, Eosinophils % (Manual) 11H, Basophils % ( Manual) 0, Band Neutrophils 0, Platelet Estimate Adequate, Platelet Morphology Normal, Red Blood Cell Morphology Normal, Prothrombin Time 11.0, Prothromb Time International Ratio 1.1, Activated Partial Thromboplast Time 33, Sodium Level 145, Potassium Level 4.1, Chloride Level 110H, Carbon Dioxide Level 28, Anion Gap 8, Blood Urea Nitrogen 17, Creatinine 0.9, Estimat Glomerular Filtration Rate > 60, Glucose Level 113H, Calcium Level 8.5, Phosphorus Level 3.5, Magnesium Level 2.0, Total Bilirubin 0.2, Aspartate Amino Transf (AST/SGOT) 19, Alanine Aminotransferase (ALT/SGPT) 17, Alkaline Phosphatase 55, Total Protein 6.8, Albumin 2.0L, Globulin 4.8, Albumin/Globulin Ratio 0.4L, Vancomycin Level Trough 9.8 Current Medications Medications (Trade) Dose Ordered Sig/Dolly Route PRN Reason Start Time Stop Time Status Last Admin Dose Admin Acetaminophen (Tylenol) 650 mg Q6H PRN GT Mild Pain/Temp > 100.5 04/07/17 11:00 05/07/17 10:59 Albuterol/ Ipratropium (DuoNeb 0.5-3(2.5)mg/3ml) 3 ml EVERY 4 HOURS PRN HHN Shortness of Breath 04/05/17 22:00 04/10/17 21:59 Ascorbic Acid (Vitamin C) 500 mg TWICE A DAY GT 04/07/17 09:00 05/07/17 08:59 04/09/17 08:58 Clotrimazole (Lotrimin) 1 applic EVERY 12 HOURS TOPIC 04/08/17 23:00 05/08/17 22:59 04/09/17 09:16 Dextrose (Dextrose 50%) STAT PRN IV Hypoglycemia 04/05/17 22:00 05/05/17 21:59 Dextrose (Dextrose 50%) STAT PRN IV Hypoglycemia 04/06/17 18:45 05/06/17 18:44 Heparin Sodium (Porcine) (Heparin 5000 units/ml) 5,000 units EVERY 12 HOURS SUBQ 04/06/17 09:00 05/06/17 08:59 04/09/17 09:01 Insulin Aspart (NovoLOG) EVERY 6 HOURS SUBQ 04/08/17 12:00 05/06/17 20:59 04/09/17 06:22 Levetiracetam (Keppra) 1,000 mg DAILY ORAL 04/06/17 09:00 05/06/17 08:59 04/09/17 08:58 Levothyroxine Sodium (Synthroid) 150 mcg DAILY GT 04/06/17 09:00 05/06/17 08:59 04/09/17 08:58 Lorazepam (Ativan 2mg/ml 1ml) 2 mg EVERY 2 HOURS PRN IV For Anxiety 04/05/17 22:00 04/12/17 21:59 Morphine Sulfate (Morphine Sulfate) 4 mg EVERY 4 HOURS PRN IVP Severe Pain (Pain Scale 7-10) 04/05/17 22:00 04/12/17 21:59 Ondansetron HCl (Zofran) 4 mg Q6H PRN IVP Nausea & Vomiting 04/05/17 22:00 05/05/17 21:59 Pantoprazole (Protonix) 40 mg DAILY IV 04/06/17 09:00 05/06/17 08:59 04/09/17 08:59 Piperacillin Sod/ Tazobactam Sod 3.375 gm/Sodium Chloride 110 ml @ 27.5 mls/hr Q8H IVPB 04/06/17 04:00 04/13/17 03:59 04/09/17 03:34 Polyethylene Glycol (Miralax) 17 gm DAILYPRN PRN ORAL Constipation 04/05/17 22:00 05/05/17 21:59 Sodium Chloride 1,000 ml @ 50 mls/hr Q20H IV 04/06/17 18:45 05/06/17 18:44 04/09/17 07:08 Vancomycin HCl (Vanco rx to dose) 1 ea DAILY PRN MISC rx to dose 04/08/17 10:00 05/06/17 08:59 Vancomycin HCl 1 gm/Dextrose 275 ml @ 183.3 mls/ hr Q24H IVPB 04/06/17 02:00 04/11/17 01:59 04/09/17 01:57 REY YAN Apr 09, 2017 10:38
[2017-04-09 12:00] VITALS: BP 120/70
[2017-04-09 16:00] VITALS: BP 94/70
[2017-04-09 20:00] VITALS: BP 121/73
[2017-04-10] VITALS (7 sets, daily range): BP systolic 121–141; BP diastolic 71–80
[2017-04-10] MEDS: NovoLOG Insulin Flexpen SUBQ SCH ×4 (00:26→17:20)
[2017-04-10] MEDS: Vancomycin 1 GM in D5W 275 ML IVPB SCH (01:21)
--- NOTE | 2017-04-10 01:45 | Consultation ---
DATE OF CONSULTATION: 04/09/2017 UROLOGY CONSULTATION ATTENDING/CONSULTING PHYSICIAN: Lea Nicolas M.D. CHIEF COMPLAINT/HISTORY OF PRESENT ILLNESS: I was asked by Dr. Nicolas to evaluate this unfortunate 66-year-old gentleman regarding a history of gross hematuria in the setting of malpositioned Sears catheter. Briefly, the patient has a history of chronic respiratory failure and is ventilator dependent. He also has a history of an anoxic brain injury. His bladder is managed by a chronic Sears catheter. He presents to the emergency room with increased urinary difficulty and gross hematuria. He was found to have evidence of sepsis with leukocytosis and fevers up to 103. He was admitted and placed on IV antibiotics with Zosyn and vancomycin. Given the above, I was asked to evaluate the patient. It appears that the patient had a CT scan, which revealed the Sears catheter was in the urethra. It was already removed/repositioned by Dr. Fonseca. The patient cannot provide any information. Most of the information is gathered from the chart. PAST MEDICAL HISTORY: 1. Anoxic brain injury. 2. Ventilator-dependent respiratory failure. 3. COPD. 4. Hypertension. 5. Dysphagia. 6. Diabetes mellitus. 7. Chronic kidney disease. PAST SURGICAL HISTORY: 1. Tracheostomy. 2. G-tube placement. MEDICATIONS: Please see chart for current medications and administration details. Briefly, the patient is on Zosyn and vancomycin. ALLERGIES: No known drug allergies. SOCIAL HISTORY: Unremarkable for tobacco, alcohol, or drug use. FAMILY HISTORY: Unavailable. REVIEW OF SYSTEMS: A 12-system review of systems cannot be done as the patient cannot cooperate with questioning. PHYSICAL EXAMINATION: GENERAL: The patient is an older gentleman, awake and somewhat alert. He is uncertain as to orientation. No obvious distress. HEENT: NC/AT. NECK: Supple. Tracheostomy in place. Oropharynx clear. CHEST: Within normal limits. ABDOMEN: Soft, mildly obese, nontender, and nondistended. EXTREMITIES: Warm and well perfused. No cyanosis, clubbing, or edema. BACK: No CVA tenderness to percussion. NEUROLOGIC: Cannot be performed as the patient cannot cooperate with the exam. GENITOURINARY: Reveals a Sears catheter in place with clear yellow urine output. There are bilateral descended testes and cord structures with no masses or tenderness to palpation. Digital rectal exam is deferred at this time as the patient cannot cooperate with the exam. LABORATORY DATA: White blood cell count 10.3, down from 34.8 on admission, hematocrit 23.3, and platelets 320,000. PT 11.0. INR 1.1. PTT 33. Urinalysis, specific gravity 1.005 and pH 7.0. Dip test notable for 4+ protein, 5+ occult blood, and 3+ leukocyte esterase. Microanalysis with too numerous to count red blood cells per high-power field, 5 to 10 white blood cells per high-power field, and few bacteria seen. Sodium 145, potassium 4.1, chloride 110, bicarbonate 28, BUN 17, creatinine 0.9, and glucose 113. LFTs within normal limits. DIAGNOSTIC IMAGING: CT scan of the abdomen and pelvis reveals an outpatient physician Sears with the balloon in the prostatic urethra. There is distention of the urinary bladder and high attenuation material consistent with clot. There is mild ectasia with bilateral collecting systems from mild bladder outlet obstruction. There is a percutaneous G-tube noted. Renal ultrasound was negative for hydronephrosis. The Sears was within the bladder. The bladder was empty. This was likely after repositioning of the catheter by Dr. Fonseca. ASSESSMENT AND PLAN: In summary, Mr. Castañeda is a 66-year-old with a history of anoxic brain injury, who has respiratory failure and is ventilator dependent. He also has a Sears catheter for management of his bladder. He presents to the hospital with a history of gross hematuria and poorly draining Sears catheter. He was found to have evidence of sepsis with high-grade fevers and leukocytosis. Physical exam reveals a Sears catheter that is now draining well and the urine is clear. After being repositioned, he was started on antibiotics. Laboratory data is notable for evidence of gross hematuria, chronic renal insufficiency, and urinary tract infection. Diagnostic imaging with CT scan reveals a malpositioned Sears catheter, which has been repositioned with correction of the same on ultrasound noted. It appears that the patient's hematuria was likely secondary to his malpositioned Sears catheter, urinary tract infection, or both. The catheter is not draining well and has been repositioned by Dr. Fonseca and kept in place until his regular schedule changed. His infection is being treated with Zosyn and vancomycin, which is excellent antibiotic coverage. Antibiotics can be adjusted as culture results warrant. Thank you for allowing me to participate in the care of this unfortunate gentleman. Please do not hesitate to contact me with any questions that you may further have regarding his care. I will see him with you as needed. Michael López M.D. DR: MARIANNE JOB#: [id number] CC:
[2017-04-10] MEDS: Piperacillin/Tazobactam 3.375 GM in NS 110 ML IVPB SCH ×2 (04:00→13:59)
[2017-04-10 05:24] LABS: MEAN CORPUSCULAR HEMOGLOBIN 30.4 PG (27.0-31.0); MEAN CORPUSCULAR HGB CONC 33.5 G/DL (32.0-36.0); MEAN CORPUSCULAR VOLUME 91 FL (80-99); MEAN PLATELET VOLUME 6.2 FL (6.5-10.1); PLATELET COUNT 339 K/UL (150-450); RED BLOOD COUNT 2.49 M/UL (4.70-6.10); RED CELL DISTRIBUTION WIDTH 14.3 % (11.6-14.8); WHITE BLOOD COUNT 11.2 K/UL (4.8-10.8)
[2017-04-10 05:34] LABS: INR 1.1 (0.9-1.1)
[2017-04-10 06:27] LABS: ALANINE AMINOTRANSFERASE 21 U/L (12-78); ANION GAP 9 mmol/L (5-15); ASPARTATE AMINO TRANSFERASE 34 U/L (15-37); CALCIUM 8.4 MG/DL (8.5-10.1); CARBON DIOXIDE 23 MMOL/L (21-32); CHLORIDE 108 MMOL/L (98-107); CREATININE 0.8 MG/DL (0.55-1.30); GLOMERULAR FILTRATION RATE > 60 mL/min (>60); PHOSPHORUS 2.7 MG/DL (2.5-4.9); POTASSIUM 4.2 MMOL/L (3.5-5.1); SODIUM 140 MMOL/L (136-145)
[2017-04-10 06:28] LABS: ALBUMIN/GLOBULIN RATIO 0.4 (1.0-2.7); TOTAL PROTEIN 6.9 G/DL (6.4-8.2)
[2017-04-10] MEDS: Ascorbic Acid 500mg tab GT SCH ×2 (08:28→17:37)
[2017-04-10] MEDS: Heparin 5000 units/ml inj SUBQ SCH ×2 (08:29→21:29)
[2017-04-10] MEDS: levETIRAcetam 500mg/5ml Liquid GT SCH (08:59)
[2017-04-10 09:28] LABS: BAND NEUTROPHILS % (MANUAL) 4 % (0-8); EOSINOPHILS % (MANUAL) 5 % (0-3); LYMPHOCYTES % (MANUAL) 21 % (20-45); NEUTROPHILS % (MANUAL) 67 % (45-75); TOTAL CELLS COUNTED 100
[2017-04-10 09:29] LABS: BASOPHILS % (MANUAL) 0 % (0-2); PLATELET ESTIMATE ADEQUATE; PLATELET MORPHOLOGY NORMAL
[2017-04-10 10:29] LABS: IRON 43 ug/dL (50-175); TOTAL IRON BINDING CAPACITY 201 ug/dL (250-450)
--- NOTE | 2017-04-10 11:29 | Pulmonology Progress Note ---
Assessment/Plan Problems: (1) Sepsis (2) Chronic respiratory failure (3) Low grade fever (4) Tracheostomy in place (5) Urethral obstruction (6) Gross hematuria (7) Feeding by G-tube (8) Severe anoxic-ischemic encephalopathy Respiratory: monitor respiratory rate, adjust FIO2 Cardiac: continue to monitor HR/BP Renal: F/U I&O Infectious Disease: check cultures, add antibiotics Gastrointestinal: continue feedings/current rate, hold feedings Endocrine: check TSH Hematologic: monitor H/H, transfuse if hgb<8.5 Neurologic: PRN Ativan, keep patient comfortable Affect: PRN ativan Notes Reviewed: outside plant supervisor, renal Discussed with: nurses, consultants, therapeutic case manager Subjective ROS Limited/Unobtainable: Yes Constitutional: Reports: no symptoms HEENT: Repors: no symptoms Respiratory: Reports: no symptoms Allergies: Coded Allergies: No Known Allergies (Unverified , 12/13/16) Objective Last 24 Hour Vital Signs Date Time Temp Pulse Resp B/P (MAP) Pulse Ox O2 Delivery O2 Flow Rate FiO2 04/10/17 10:40 82 14 30 04/10/17 09:25 75 16 30 04/10/17 08:00 98.2 88 14 137/77 98 Mechanical Ventilator 30 04/10/17 08:00 30 04/10/17 08:00 84 04/10/17 06:32 80 14 30 04/10/17 05:28 82 14 30 04/10/17 04:00 30 04/10/17 04:00 83 04/10/17 04:00 99.7 90 16 132/78 100 Mechanical Ventilator 04/10/17 03:24 78 19 30 04/10/17 00:30 87 14 30 04/10/17 00:00 30 04/10/17 00:00 98.6 100 18 121/71 100 Mechanical Ventilator 04/10/17 00:00 88 04/09/17 23:17 81 14 30 04/09/17 20:47 85 14 30 04/09/17 20:00 98.6 100 16 121/73 100 Mechanical Ventilator 04/09/17 20:00 92 04/09/17 20:00 30 04/09/17 19:21 94 18 30 04/09/17 16:40 111 14 30 04/09/17 16:12 30 04/09/17 16:00 98.8 114 14 94/70 100 Mechanical Ventilator 30 04/09/17 16:00 117 04/09/17 15:22 120 14 30 04/09/17 13:20 107 19 30 04/09/17 12:00 92 04/09/17 12:00 30 04/09/17 12:00 98.8 99 14 120/70 100 Mechanical Ventilator General Appearance: WD/WN HEENT: normocephalic Respiratory/Chest: chest wall non-tender, normal breath sounds, no respiratory distress Cardiovascular: normal peripheral pulses, regular rhythm Abdomen: normal bowel sounds, soft, non tender Genitourinary: normal external genitalia Extremities: no clubbing Skin: no lesions, no ulcers Lymphatic: no neck adenopathy, no groin adenopathy Microbiology Date/Time Source Procedure Growth Status 04/08/17 17:30 Blood Blood Culture - Preliminary NO GROWTH AFTER 24 HOURS Resulted 04/08/17 17:20 Blood Blood Culture - Preliminary NO GROWTH AFTER 24 HOURS Resulted Laboratory Tests 04/10/17 03:35: White Blood Count 11.2H, Red Blood Count 2.49L, Hemoglobin 7.6L, Hematocrit 22.6L, Mean Corpuscular Volume 91, Mean Corpuscular Hemoglobin 30.4, Mean Corpuscular Hemoglobin Concent 33.5, Red Cell Distribution Width 14.3, Platelet Count 339, Mean Platelet Volume 6.2L, Neutrophils (%) (Auto) , Lymphocytes (%) ( Auto) , Monocytes (%) (Auto) , Eosinophils (%) (Auto) , Basophils (%) (Auto) , Differential Total Cells Counted 100, Neutrophils % (Manual) 67, Lymphocytes % ( Manual) 21, Monocytes % (Manual) 3, Eosinophils % (Manual) 5H, Basophils % ( Manual) 0, Band Neutrophils 4, Platelet Estimate Adequate, Platelet Morphology Normal, Red Blood Cell Morphology Normal, Prothrombin Time 11.0, Prothromb Time International Ratio 1.1, Activated Partial Thromboplast Time 32, Sodium Level 140, Potassium Level 4.2, Chloride Level 108H, Carbon Dioxide Level 23, Anion Gap 9, Blood Urea Nitrogen 15, Creatinine 0.8, Estimat Glomerular Filtration Rate > 60, Glucose Level 102, Calcium Level 8.4L, Phosphorus Level 2.7, Magnesium Level 2.0, Total Bilirubin 0.2, Aspartate Amino Transf (AST/SGOT) 34, Alanine Aminotransferase (ALT/SGPT) 21, Alkaline Phosphatase 54, Total Protein 6.9, Albumin 2.0L, Globulin 4.9, Albumin/Globulin Ratio 0.4L 04/10/17 09:00: Hemoglobin A1c 7.8H, Iron Level 43L, Total Iron Binding Capacity 201L, Percent Iron Saturation 21, Unsaturated Iron Binding 158, Ferritin 114, Vitamin B12 Level 1846H, Folate 16.0 Current Medications Medications (Trade) Dose Ordered Sig/Dolly Route PRN Reason Start Time Stop Time Status Last Admin Dose Admin Acetaminophen (Tylenol) 650 mg Q6H PRN GT Mild Pain/Temp > 100.5 04/07/17 11:00 05/07/17 10:59 Albuterol/ Ipratropium (DuoNeb 0.5-3(2.5)mg/3ml) 3 ml EVERY 4 HOURS PRN HHN Shortness of Breath 04/05/17 22:00 04/10/17 21:59 Ascorbic Acid (Vitamin C) 500 mg TWICE A DAY GT 04/07/17 09:00 05/07/17 08:59 04/10/17 08:28 Clotrimazole (Lotrimin) 1 applic EVERY 12 HOURS TOPIC 04/08/17 23:00 05/08/17 22:59 04/10/17 08:59 Dextrose (Dextrose 50%) STAT PRN IV Hypoglycemia 04/05/17 22:00 05/05/17 21:59 Dextrose (Dextrose 50%) STAT PRN IV Hypoglycemia 04/06/17 18:45 05/06/17 18:44 Heparin Sodium (Porcine) (Heparin 5000 units/ml) 5,000 units EVERY 12 HOURS SUBQ 04/06/17 09:00 05/06/17 08:59 04/10/17 08:29 Insulin Aspart (NovoLOG) EVERY 6 HOURS SUBQ 04/08/17 12:00 05/06/17 20:59 04/10/17 06:12 Levetiracetam (Keppra) 1,000 mg DAILY GT 04/10/17 09:00 05/10/17 08:59 04/10/17 08:59 Levothyroxine Sodium (Synthroid) 150 mcg DAILY GT 04/06/17 09:00 05/06/17 08:59 04/10/17 08:28 Lorazepam (Ativan 2mg/ml 1ml) 2 mg EVERY 2 HOURS PRN IV For Anxiety 04/05/17 22:00 04/12/17 21:59 Morphine Sulfate (Morphine Sulfate) 4 mg EVERY 4 HOURS PRN IVP Severe Pain (Pain Scale 7-10) 04/05/17 22:00 04/12/17 21:59 Ondansetron HCl (Zofran) 4 mg Q6H PRN IVP Nausea & Vomiting 04/05/17 22:00 05/05/17 21:59 Pantoprazole (Protonix) 40 mg DAILY IV 04/06/17 09:00 05/06/17 08:59 04/09/17 08:59 Piperacillin Sod/ Tazobactam Sod 3.375 gm/Sodium Chloride 110 ml @ 27.5 mls/hr Q8H IVPB 04/06/17 04:00 04/13/17 03:59 04/09/17 19:42 Polyethylene Glycol (Miralax) 17 gm DAILYPRN PRN ORAL Constipation 04/05/17 22:00 05/05/17 21:59 Sodium Chloride 1,000 ml @ 50 mls/hr Q20H IV 04/06/17 18:45 05/06/17 18:44 04/10/17 03:00 Vancomycin HCl (Vanco rx to dose) 1 ea DAILY PRN MISC rx to dose 04/08/17 10:00 05/06/17 08:59 Vancomycin HCl 1 gm/Dextrose 275 ml @ 183.3 mls/ hr Q24H IVPB 04/06/17 02:00 04/11/17 01:59 04/10/17 01:21 REY YAN Apr 10, 2017 11:29
--- NOTE | 2017-04-10 13:45 | Diagnostic Imaging Report ---
Indications: Needs long-term IV access Technique: Procedure performed at bedside. Procedural timeout performed. Ultrasound confirms patent compressible left basilic vein. Total sterile technique, including sterile probe cover and sterile gel, sterile gloves, hand hygiene, hat, mask,, sterile gown, large sterile drape, and preparation with 2% chlorhexidine utilized. Local anesthesia with 1% lidocaine. Under real-time ultrasound guidance, puncture basilic vein using 21-gauge needle, passage 0.018 guidewire, exchange for 5 Bulgarian peel-away sheath. 5 Bulgarian Bard dual-lumen power PICC cut to 44 cm. It was inserted through the peel-away sheath. Peel-away sheath and guidewire removed. Catheter fixed to the skin. Both catheter ports aspirated and flushed. Patient tolerated procedure well, without immediate complication. Followup chest x-ray obtained, documents catheter tip position at the high right atrium Impression: Successful bedside placement of left arm PICC under sonographic guidance, as described above.
[2017-04-10] MEDS: Pantoprazole Inj IV SCH (13:55)
[2017-04-10] MEDS ORDERED: Tubing Blood Filter IV ONE (17:38)
[2017-04-10] MEDS ORDERED: Tubing IV Secondary IV ONE (17:38)
[2017-04-10] MEDS ORDERED: NS 550ML IV ONE (17:38)
[2017-04-10] MEDS: Dyna-Hex 2% Top Sol 2oz TOPIC SCH (20:00)
--- NOTE | 2017-04-10 20:15 | Infectious Diseases Prog Note ---
Assessment/Plan Assessment/Plan Assessment: Sepsis- likely 2ry to UTI and bacteremia; resolved -u/a WBC 5-10, nit neg, leuk +3, RBC tntc; ucx 10-20K ESBL+ P.mirabilis -Bcx 04/05 1 CONS, m/l contaminant. Repeat BCx 04/08 NGTD -CXR 04/08: There is some scarring at the left lung base -CT abd/p w/: Malpositioned Munguia, balloon in the prostatic urethra. Distention of urinary bladder. High attenuation material worrisome for hemorrhage however other history or underlying mass lesion is not excluded. Small amount of air in the urinary bladder may be from Munguia catheter. Mild ectasia of the bilateral renal collecting systems. This may be from mild urinary bladder obstruction. Otherwise, kidneys are normal. Percutaneous gastric tube. No free fluid or free air. No bowel obstruction. 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 Full Code Plan: -DC IV Vancomycin # 5 / 5, change zosyn to invanz d# 1 based on cultures -f/u final cx -Monitor CBC/BMP, temperatures Subjective Allergies: Coded Allergies: No Known Allergies (Unverified , 12/13/16) Subjective remains afebrile recurrent mild leukocytosis cultures, imaging noted Objective Vital Signs Last 24 Hour Vital Signs Date Time Temp Pulse Resp B/P (MAP) Pulse Ox O2 Delivery O2 Flow Rate FiO2 04/10/17 19:13 78 15 30 04/10/17 16:49 79 16 30 04/10/17 16:00 97.6 80 14 137/73 100 Mechanical Ventilator 30 04/10/17 16:00 30 04/10/17 15:45 81 16 30 04/10/17 15:12 71 04/10/17 12:56 77 16 30 04/10/17 12:45 80 04/10/17 12:09 97.5 75 14 133/74 100 Mechanical Ventilator 30 04/10/17 12:00 30 04/10/17 10:40 82 14 30 04/10/17 09:25 75 16 30 04/10/17 08:00 98.2 88 14 137/77 98 Mechanical Ventilator 30 04/10/17 08:00 30 04/10/17 08:00 84 04/10/17 06:32 80 14 30 04/10/17 05:28 82 14 30 04/10/17 04:00 30 04/10/17 04:00 83 04/10/17 04:00 99.7 90 16 132/78 100 Mechanical Ventilator 04/10/17 03:24 78 19 30 04/10/17 00:30 87 14 30 04/10/17 00:00 30 04/10/17 00:00 98.6 100 18 121/71 100 Mechanical Ventilator 04/10/17 00:00 88 04/09/17 23:17 81 14 30 04/09/17 20:47 85 14 30 Height (Feet): 5 Height (Inches): 4.00 Weight (Pounds): 130 General Appearance: no acute distress Respiratory/Chest: no respiratory distress Cardiovascular: normal rate, regular rhythm Abdomen: normal bowel sounds, soft, non tender, non distended Microbiology Date/Time Source Procedure Growth Status 04/08/17 17:30 Blood Blood Culture - Preliminary NO GROWTH AFTER 24 HOURS Resulted 04/08/17 17:20 Blood Blood Culture - Preliminary NO GROWTH AFTER 24 HOURS Resulted Laboratory Tests Test 04/10/17 03:35 04/10/17 09:00 White Blood Count 11.2 K/UL (4.8-10.8) H Red Blood Count 2.49 M/UL (4.70-6.10) L Hemoglobin 7.6 G/DL (14.2-18.0) L Hematocrit 22.6 % (42.0-52.0) L Mean Corpuscular Volume 91 FL (80-99) Mean Corpuscular Hemoglobin 30.4 PG (27.0-31.0) Mean Corpuscular Hemoglobin Concent 33.5 G/DL (32.0-36.0) Red Cell Distribution Width 14.3 % (11.6-14.8) Platelet Count 339 K/UL (150-450) Mean Platelet Volume 6.2 FL (6.5-10.1) L Neutrophils (%) (Auto) % (45.0-75.0) Lymphocytes (%) (Auto) % (20.0-45.0) Monocytes (%) (Auto) % (1.0-10.0) Eosinophils (%) (Auto) % (0.0-3.0) Basophils (%) (Auto) % (0.0-2.0) Differential Total Cells Counted 100 Neutrophils % (Manual) 67 % (45-75) Lymphocytes % (Manual) 21 % (20-45) Monocytes % (Manual) 3 % (1-10) Eosinophils % (Manual) 5 % (0-3) H Basophils % (Manual) 0 % (0-2) Band Neutrophils 4 % (0-8) Platelet Estimate Adequate Platelet Morphology Normal Red Blood Cell Morphology Normal Prothrombin Time 11.0 SEC (9.30-11.50) Prothromb Time International Ratio 1.1 (0.9-1.1) Activated Partial Thromboplast Time 32 SEC (23-33) Sodium Level 140 MMOL/L (136-145) Potassium Level 4.2 MMOL/L (3.5-5.1) Chloride Level 108 MMOL/L (98-107) H Carbon Dioxide Level 23 MMOL/L (21-32) Anion Gap 9 mmol/L (5-15) Blood Urea Nitrogen 15 mg/dL (7-18) Creatinine 0.8 MG/DL (0.55-1.30) Estimat Glomerular Filtration Rate > 60 mL/min (>60) Glucose Level 102 MG/DL (74-106) Calcium Level 8.4 MG/DL (8.5-10.1) L Phosphorus Level 2.7 MG/DL (2.5-4.9) Magnesium Level 2.0 MG/DL (1.8-2.4) Total Bilirubin 0.2 MG/DL (0.2-1.0) Aspartate Amino Transf (AST/SGOT) 34 U/L (15-37) Alanine Aminotransferase (ALT/SGPT) 21 U/L (12-78) Alkaline Phosphatase 54 U/L (46-116) Total Protein 6.9 G/DL (6.4-8.2) Albumin 2.0 G/DL (3.4-5.0) L Globulin 4.9 g/dL Albumin/Globulin Ratio 0.4 (1.0-2.7) L Hemoglobin A1c 7.8 % (4.3-6.0) H Iron Level 43 ug/dL (50-175) L Total Iron Binding Capacity 201 ug/dL (250-450) L Percent Iron Saturation 21 % (15-50) Unsaturated Iron Binding 158 ug/dL (112-346) Ferritin 114 NG/ML (8-388) Vitamin B12 Level 1846 PG/ML (193-986) H Folate 16.0 NG/ML (3.1-17.5) Current Medications Medications (Trade) Dose Ordered Sig/Dolly Route PRN Reason Start Time Stop Time Status Last Admin Dose Admin Acetaminophen (Tylenol) 650 mg Q6H PRN GT Mild Pain/Temp > 100.5 04/07/17 11:00 05/07/17 10:59 Albuterol/ Ipratropium (DuoNeb 0.5-3(2.5)mg/3ml) 3 ml EVERY 4 HOURS PRN HHN Shortness of Breath 04/05/17 22:00 04/10/17 21:59 Ascorbic Acid (Vitamin C) 500 mg TWICE A DAY GT 04/07/17 09:00 05/07/17 08:59 04/10/17 17:37 Chlorhexidine Gluconate (Leesa-Hex 2%) 1 applic DAILY@2000 TOPIC 04/10/17 20:00 05/10/17 19:59 Clotrimazole (Lotrimin) 1 applic EVERY 12 HOURS TOPIC 04/08/17 23:00 05/08/17 22:59 04/10/17 08:59 Dextrose (Dextrose 50%) STAT PRN IV Hypoglycemia 04/05/17 22:00 05/05/17 21:59 Dextrose (Dextrose 50%) STAT PRN IV Hypoglycemia 04/06/17 18:45 05/06/17 18:44 Heparin Sodium (Porcine) (Heparin 5000 units/ml) 5,000 units EVERY 12 HOURS SUBQ 04/06/17 09:00 05/06/17 08:59 04/10/17 08:29 Insulin Aspart (NovoLOG) EVERY 6 HOURS SUBQ 04/08/17 12:00 05/06/17 20:59 04/10/17 13:13 Levetiracetam (Keppra) 1,000 mg DAILY GT 04/10/17 09:00 05/10/17 08:59 04/10/17 08:59 Levothyroxine Sodium (Synthroid) 150 mcg DAILY GT 04/06/17 09:00 05/06/17 08:59 04/10/17 08:28 Lorazepam (Ativan 2mg/ml 1ml) 2 mg EVERY 2 HOURS PRN IV For Anxiety 04/05/17 22:00 04/12/17 21:59 Morphine Sulfate (Morphine Sulfate) 4 mg EVERY 4 HOURS PRN IVP Severe Pain (Pain Scale 7-10) 04/05/17 22:00 04/12/17 21:59 Ondansetron HCl (Zofran) 4 mg Q6H PRN IVP Nausea & Vomiting 04/05/17 22:00 05/05/17 21:59 Pantoprazole (Protonix) 40 mg DAILY IV 04/06/17 09:00 05/06/17 08:59 04/10/17 13:55 Piperacillin Sod/ Tazobactam Sod 3.375 gm/Sodium Chloride 110 ml @ 27.5 mls/hr Q8H IVPB 04/06/17 04:00 04/13/17 03:59 04/10/17 13:59 Polyethylene Glycol (Miralax) 17 gm DAILYPRN PRN ORAL Constipation 04/05/17 22:00 05/05/17 21:59 Sodium Chloride 1,000 ml @ 50 mls/hr Q20H IV 04/06/17 18:45 05/06/17 18:44 04/10/17 03:00 Vancomycin HCl (Vanco rx to dose) 1 ea DAILY PRN MISC rx to dose 04/08/17 10:00 05/06/17 08:59 Vancomycin HCl 1 gm/Dextrose 275 ml @ 183.3 mls/ hr Q24H IVPB 04/06/17 02:00 04/11/17 01:59 04/10/17 01:21 FRANCOIS SANDOVAL Apr 10, 2017 20:15
[2017-04-10] MEDS ORDERED: Nuedexta Capsule 20/10mg ORAL SCH (21:00)
[2017-04-10] MEDS: Ertapenem 1 GM in NS 55 ML IVPB SCH (21:34)
--- NOTE | 2017-04-10 23:36 | Diagnostic Imaging Report ---
APPROVED REPORT CPT Code: 19001 Present Symptoms Lower Extremity Pain: Bilateral BILATERAL: Imaging reveals a patent deep venous system bilaterally. There is no evidence of thrombus within the femoral, popliteal or tibial segments. The greater saphenous veins are also within normal limits. Doppler indicates normal spontaneous flow within these segments.
[2017-04-11] VITALS: BP 138/80
[2017-04-11] MEDS: NovoLOG Insulin Flexpen SUBQ SCH ×5 (00:01→23:38)
[2017-04-11 04:00] VITALS: BP 147/77
[2017-04-11] MEDS: Piperacillin/Tazobactam 3.375 GM in NS 110 ML IVPB SCH (07:43)
[2017-04-11 08:00] VITALS: BP 137/87
[2017-04-11 08:13] LABS: BASOPHILS % (AUTO) 0.6 % (0.0-2.0); EOSINOPHILS % (AUTO) 7.9 % (0.0-3.0); LYMPHOCYTES % (AUTO) 13.8 % (20.0-45.0); MEAN CORPUSCULAR HGB CONC 33.3 G/DL (32.0-36.0); MEAN CORPUSCULAR VOLUME 90 FL (80-99); MEAN PLATELET VOLUME 6.2 FL (6.5-10.1); MONOCYTES % (AUTO) 4.9 % (1.0-10.0); NEUTROPHILS % (AUTO) 72.8 % (45.0-75.0); PLATELET COUNT 329 K/UL (150-450); RED BLOOD COUNT 3.15 M/UL (4.70-6.10); RED CELL DISTRIBUTION WIDTH 13.9 % (11.6-14.8); WHITE BLOOD COUNT 12.2 K/UL (4.8-10.8)
[2017-04-11 08:32] LABS: ALANINE AMINOTRANSFERASE 26 U/L (12-78); ALBUMIN/GLOBULIN RATIO 0.5 (1.0-2.7); ANION GAP 9 mmol/L (5-15); ASPARTATE AMINO TRANSFERASE 34 U/L (15-37); CALCIUM 8.5 MG/DL (8.5-10.1); CARBON DIOXIDE 24 MMOL/L (21-32); CHLORIDE 108 MMOL/L (98-107); CREATININE 0.9 MG/DL (0.55-1.30); GLOMERULAR FILTRATION RATE > 60 mL/min (>60); PHOSPHORUS 3.1 MG/DL (2.5-4.9); POTASSIUM 3.9 MMOL/L (3.5-5.1); SODIUM 141 MMOL/L (136-145); TOTAL PROTEIN 6.7 G/DL (6.4-8.2)
[2017-04-11 08:40] LABS: INR 1.1 (0.9-1.1)
[2017-04-11] MEDS: Pantoprazole Inj IV SCH (09:50)
[2017-04-11] MEDS: levETIRAcetam 500mg/5ml Liquid GT SCH (09:51)
[2017-04-11] MEDS: Heparin 5000 units/ml inj SUBQ SCH ×2 (09:54→20:41)
[2017-04-11] MEDS: Ascorbic Acid 500mg tab GT SCH ×2 (09:54→17:23)
[2017-04-11 11:36] LABS: OTHERS PATHOLOGIST COMMENT
--- NOTE | 2017-04-11 11:43 | Pulmonolgy Critical Care Note ---
Critical Care - Asmt/Plan Problems: (1) Sepsis (2) MDRO (multiple drug resistant organisms) resistance (3) Chronic respiratory failure (4) Gross hematuria (5) Feeding by G-tube (6) Tracheostomy in place Respiratory: monitor respiratory rate, adjust FIO2, CXR Cardiac: continue to monitor HR/BP Renal: F/U I&O, keep IV fluid Infectious Disease: add antibiotics Gastrointestinal: continue feedings/current rate Endocrine: monitor blood sugar, check TSH Neurologic: PRN Morphine Affect: PRN ativan Prophylaxis: Protonix Notes Reviewed: special weapons unit officer, renal Discussed with: nurses, consultants, housing case managerbanking center manager - Objective Last 24 Hour Vital Signs Date Time Temp Pulse Resp B/P (MAP) Pulse Ox O2 Delivery O2 Flow Rate FiO2 04/11/17 11:23 77 15 30 04/11/17 08:58 77 14 30 04/11/17 08:00 30 04/11/17 08:00 98.4 84 18 137/87 99 Mechanical Ventilator 30 04/11/17 07:45 79 15 30 04/11/17 07:26 88 04/11/17 05:16 86 14 30 04/11/17 04:00 97.8 90 16 147/77 97 Mechanical Ventilator 30 04/11/17 04:00 30 04/11/17 04:00 86 04/11/17 03:28 87 14 30 04/11/17 00:56 83 14 30 04/11/17 00:00 97.8 80 14 138/80 97 Mechanical Ventilator 30 04/11/17 00:00 30 04/10/17 23:48 74 04/10/17 22:47 70 14 30 04/10/17 21:35 98.1 78 133/79 04/10/17 21:12 79 14 30 04/10/17 20:22 97.9 70 14 141/80 100 Mechanical Ventilator 30 04/10/17 20:00 30 04/10/17 19:24 76 04/10/17 19:13 78 15 30 04/10/17 16:49 79 16 30 04/10/17 16:00 97.6 80 14 137/73 100 Mechanical Ventilator 30 04/10/17 16:00 30 04/10/17 15:45 81 16 30 04/10/17 15:12 71 04/10/17 12:56 77 16 30 04/10/17 12:45 80 04/10/17 12:09 97.5 75 14 133/74 100 Mechanical Ventilator 30 04/10/17 12:00 30 Status: awake Condition: critical HEENT: atraumatic Lungs: clear Heart: HR/BP stable Abdomen: soft, active bowel sounds Micro: Microbiology Date/Time Source Procedure Growth Status 04/08/17 17:30 Blood Blood Culture - Preliminary NO GROWTH AFTER 48 HOURS Resulted 04/08/17 17:20 Blood Blood Culture - Preliminary NO GROWTH AFTER 48 HOURS Resulted Accucheck: 127 Critical Care - Subjective ROS Limited/Unobtainable: Yes Condition: critical EKG Rhythm: Sinus Rhythm FI02: 30 Vent Support Breath Rate: 14 Vent Support Mode: AC Vent Tidal Volume: 600 Sputum Amount: Small PEEP: 5.0 PIP: 32 Tube Feeding Amount: 60 CXR: no change Labs: Laboratory Tests Test 04/11/17 06:00 White Blood Count 12.2 K/UL (4.8-10.8) H Red Blood Count 3.15 M/UL (4.70-6.10) L Hemoglobin 9.5 G/DL (14.2-18.0) L Hematocrit 28.4 % (42.0-52.0) L Mean Corpuscular Volume 90 FL (80-99) Mean Corpuscular Hemoglobin 30.0 PG (27.0-31.0) Mean Corpuscular Hemoglobin Concent 33.3 G/DL (32.0-36.0) Red Cell Distribution Width 13.9 % (11.6-14.8) Platelet Count 329 K/UL (150-450) Mean Platelet Volume 6.2 FL (6.5-10.1) L Neutrophils (%) (Auto) 72.8 % (45.0-75.0) Lymphocytes (%) (Auto) 13.8 % (20.0-45.0) L Monocytes (%) (Auto) 4.9 % (1.0-10.0) Eosinophils (%) (Auto) 7.9 % (0.0-3.0) H Basophils (%) (Auto) 0.6 % (0.0-2.0) Prothrombin Time 11.0 SEC (9.30-11.50) Prothromb Time International Ratio 1.1 (0.9-1.1) Activated Partial Thromboplast Time 32 SEC (23-33) Sodium Level 141 MMOL/L (136-145) Potassium Level 3.9 MMOL/L (3.5-5.1) Chloride Level 108 MMOL/L (98-107) H Carbon Dioxide Level 24 MMOL/L (21-32) Anion Gap 9 mmol/L (5-15) Blood Urea Nitrogen 14 mg/dL (7-18) Creatinine 0.9 MG/DL (0.55-1.30) Estimat Glomerular Filtration Rate > 60 mL/min (>60) Glucose Level 115 MG/DL (74-106) H Calcium Level 8.5 MG/DL (8.5-10.1) Phosphorus Level 3.1 MG/DL (2.5-4.9) Magnesium Level 2.0 MG/DL (1.8-2.4) Total Bilirubin 0.2 MG/DL (0.2-1.0) Aspartate Amino Transf (AST/SGOT) 34 U/L (15-37) Alanine Aminotransferase (ALT/SGPT) 26 U/L (12-78) Alkaline Phosphatase 60 U/L (46-116) Total Protein 6.7 G/DL (6.4-8.2) Albumin 2.1 G/DL (3.4-5.0) L Globulin 4.6 g/dL Albumin/Globulin Ratio 0.5 (1.0-2.7) L REY YAN Apr 11, 2017 11:43
[2017-04-11] MEDS ORDERED: INVANZ1 G1 IV BOLUS (11:44)
[2017-04-11 11:50] VITALS: BP_SYST 128; BP_SYST 137; BP_DIAS 74; BP_DIAS 87
[2017-04-11 16:00] VITALS: BP 115/68
[2017-04-11] MEDS ORDERED: D5NS 1000ml IV ONE (16:20)
--- NOTE | 2017-04-11 19:40 | Infectious Diseases Prog Note ---
Assessment/Plan Assessment/Plan Assessment: Sepsis- likely 2ry to UTI and bacteremia; resolved -u/a WBC 5-10, nit neg, leuk +3, RBC tntc; ucx 10-20K ESBL+ P.mirabilis -Bcx 04/05 1 CONS, m/l contaminant. Repeat BCx 04/08 NGTD -CXR 04/08: There is some scarring at the left lung base -CT abd/p w/: Malpositioned Munguia, balloon in the prostatic urethra. Distention of urinary bladder. High attenuation material worrisome for hemorrhage however other history or underlying mass lesion is not excluded. Small amount of air in the urinary bladder may be from Munguia catheter. Mild ectasia of the bilateral renal collecting systems. This may be from mild urinary bladder obstruction. Otherwise, kidneys are normal. Percutaneous gastric tube. No free fluid or free air. No bowel obstruction. 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 Full Code Plan: - continue invanz d# 2 / 10 ( 04/10 SP IV Vancomycin # 5 / ) -f/u final cx -Monitor CBC/BMP, temperatures Subjective Allergies: Coded Allergies: No Known Allergies (Unverified , 12/13/16) Subjective remains afebrile recurrent mild leukocytosis Objective Vital Signs Last 24 Hour Vital Signs Date Time Temp Pulse Resp B/P (MAP) Pulse Ox O2 Delivery O2 Flow Rate FiO2 04/11/17 19:06 85 16 30 04/11/17 17:07 86 19 30 04/11/17 16:00 98.5 77 18 115/68 95 Mechanical Ventilator 30 04/11/17 16:00 30 04/11/17 15:25 75 04/11/17 15:02 83 15 30 04/11/17 12:38 80 14 30 04/11/17 12:22 81 04/11/17 12:00 30 04/11/17 11:50 98.4 77 15 128/74 100 Mechanical Ventilator 30 04/11/17 11:23 77 15 30 04/11/17 08:58 77 14 30 04/11/17 08:00 30 04/11/17 08:00 98.4 84 18 137/87 99 Mechanical Ventilator 30 04/11/17 07:45 79 15 30 04/11/17 07:26 88 04/11/17 05:16 86 14 30 04/11/17 04:00 97.8 90 16 147/77 97 Mechanical Ventilator 30 04/11/17 04:00 30 04/11/17 04:00 86 04/11/17 03:28 87 14 30 04/11/17 00:56 83 14 30 04/11/17 00:00 97.8 80 14 138/80 97 Mechanical Ventilator 30 04/11/17 00:00 30 04/10/17 23:48 74 04/10/17 22:47 70 14 30 04/10/17 21:35 98.1 78 133/79 04/10/17 21:12 79 14 30 04/10/17 20:22 97.9 70 14 141/80 100 Mechanical Ventilator 30 04/10/17 20:00 30 Height (Feet): 5 Height (Inches): 4.00 Weight (Pounds): 130 Laboratory Tests Test 04/11/17 06:00 White Blood Count 12.2 K/UL (4.8-10.8) H Red Blood Count 3.15 M/UL (4.70-6.10) L Hemoglobin 9.5 G/DL (14.2-18.0) L Hematocrit 28.4 % (42.0-52.0) L Mean Corpuscular Volume 90 FL (80-99) Mean Corpuscular Hemoglobin 30.0 PG (27.0-31.0) Mean Corpuscular Hemoglobin Concent 33.3 G/DL (32.0-36.0) Red Cell Distribution Width 13.9 % (11.6-14.8) Platelet Count 329 K/UL (150-450) Mean Platelet Volume 6.2 FL (6.5-10.1) L Neutrophils (%) (Auto) 72.8 % (45.0-75.0) Lymphocytes (%) (Auto) 13.8 % (20.0-45.0) L Monocytes (%) (Auto) 4.9 % (1.0-10.0) Eosinophils (%) (Auto) 7.9 % (0.0-3.0) H Basophils (%) (Auto) 0.6 % (0.0-2.0) Prothrombin Time 11.0 SEC (9.30-11.50) Prothromb Time International Ratio 1.1 (0.9-1.1) Activated Partial Thromboplast Time 32 SEC (23-33) Sodium Level 141 MMOL/L (136-145) Potassium Level 3.9 MMOL/L (3.5-5.1) Chloride Level 108 MMOL/L (98-107) H Carbon Dioxide Level 24 MMOL/L (21-32) Anion Gap 9 mmol/L (5-15) Blood Urea Nitrogen 14 mg/dL (7-18) Creatinine 0.9 MG/DL (0.55-1.30) Estimat Glomerular Filtration Rate > 60 mL/min (>60) Glucose Level 115 MG/DL (74-106) H Calcium Level 8.5 MG/DL (8.5-10.1) Phosphorus Level 3.1 MG/DL (2.5-4.9) Magnesium Level 2.0 MG/DL (1.8-2.4) Total Bilirubin 0.2 MG/DL (0.2-1.0) Aspartate Amino Transf (AST/SGOT) 34 U/L (15-37) Alanine Aminotransferase (ALT/SGPT) 26 U/L (12-78) Alkaline Phosphatase 60 U/L (46-116) Total Protein 6.7 G/DL (6.4-8.2) Albumin 2.1 G/DL (3.4-5.0) L Globulin 4.6 g/dL Albumin/Globulin Ratio 0.5 (1.0-2.7) L Current Medications Medications (Trade) Dose Ordered Sig/Dolly Route PRN Reason Start Time Stop Time Status Last Admin Dose Admin Acetaminophen (Tylenol) 650 mg Q6H PRN GT Mild Pain/Temp > 100.5 04/07/17 11:00 05/07/17 10:59 Ascorbic Acid (Vitamin C) 500 mg TWICE A DAY GT 04/07/17 09:00 05/07/17 08:59 04/11/17 17:23 Chlorhexidine Gluconate (Leesa-Hex 2%) 1 applic DAILY@1999 TOPIC 04/10/17 20:00 05/10/17 19:59 Clotrimazole (Lotrimin) 1 applic EVERY 12 HOURS TOPIC 04/08/17 23:00 05/08/17 22:59 04/11/17 09:50 Dextrose (Dextrose 50%) STAT PRN IV Hypoglycemia 04/05/17 22:00 05/05/17 21:59 Ertapenem 1 gm/ Sodium Chloride 55 ml @ 110 mls/hr Q24H IVPB 04/10/17 22:00 04/15/17 21:59 04/10/17 21:34 Heparin Sodium (Porcine) (Heparin 5000 units/ml) 5,000 units EVERY 12 HOURS SUBQ 04/06/17 09:00 05/06/17 08:59 04/11/17 09:54 Insulin Aspart (NovoLOG) EVERY 6 HOURS SUBQ 04/08/17 12:00 05/06/17 20:59 04/11/17 17:26 Levetiracetam (Keppra) 1,000 mg DAILY GT 04/10/17 09:00 05/10/17 08:59 04/11/17 09:51 Levothyroxine Sodium (Synthroid) 150 mcg DAILY GT 04/06/17 09:00 05/06/17 08:59 04/11/17 09:54 Lorazepam (Ativan 2mg/ml 1ml) 2 mg EVERY 2 HOURS PRN IV For Anxiety 04/05/17 22:00 04/12/17 21:59 Morphine Sulfate (Morphine Sulfate) 4 mg EVERY 4 HOURS PRN IVP Severe Pain (Pain Scale 7-10) 04/05/17 22:00 04/12/17 21:59 Ondansetron HCl (Zofran) 4 mg Q6H PRN IVP Nausea & Vomiting 04/05/17 22:00 05/05/17 21:59 Pantoprazole (Protonix) 40 mg DAILY IV 04/06/17 09:00 05/06/17 08:59 04/11/17 09:50 Polyethylene Glycol (Miralax) 17 gm DAILYPRN PRN ORAL Constipation 04/05/17 22:00 05/05/17 21:59 Sodium Chloride 1,000 ml @ 50 mls/hr Q20H IV 04/06/17 18:45 05/06/17 18:44 04/11/17 19:02 FRANCOIS SANDOVAL Apr 11, 2017 19:40
[2017-04-11 20:00] VITALS: BP 152/78
[2017-04-11] MEDS: Dyna-Hex 2% Top Sol 2oz TOPIC SCH (20:39)
[2017-04-11] MEDS: Ertapenem 1 GM in NS 55 ML IVPB SCH (22:48)
[2017-04-12] VITALS: BP 146/88
[2017-04-12 04:00] VITALS: BP 146/88
[2017-04-12] MEDS: NovoLOG Insulin Flexpen SUBQ SCH ×2 (05:22→12:00)
[2017-04-12 05:40] LABS: BASOPHILS % (AUTO) 0.5 % (0.0-2.0); EOSINOPHILS % (AUTO) 8.7 % (0.0-3.0); MEAN CORPUSCULAR HEMOGLOBIN 30.5 PG (27.0-31.0); MEAN CORPUSCULAR HGB CONC 33.5 G/DL (32.0-36.0); MEAN CORPUSCULAR VOLUME 91 FL (80-99); MEAN PLATELET VOLUME 5.8 FL (6.5-10.1); MONOCYTES % (AUTO) 4.1 % (1.0-10.0); NEUTROPHILS % (AUTO) 70.7 % (45.0-75.0); PLATELET COUNT 353 K/UL (150-450); RED BLOOD COUNT 3.25 M/UL (4.70-6.10); RED CELL DISTRIBUTION WIDTH 14.3 % (11.6-14.8); WHITE BLOOD COUNT 11.6 K/UL (4.8-10.8)
[2017-04-12 06:04] LABS: ALANINE AMINOTRANSFERASE 30 U/L (12-78); ALBUMIN/GLOBULIN RATIO 0.4 (1.0-2.7); ANION GAP 11 mmol/L (5-15); ASPARTATE AMINO TRANSFERASE 37 U/L (15-37); CALCIUM 8.8 MG/DL (8.5-10.1); CARBON DIOXIDE 25 MMOL/L (21-32); CHLORIDE 106 MMOL/L (98-107); CREATININE 0.9 MG/DL (0.55-1.30); GLOMERULAR FILTRATION RATE > 60 mL/min (>60); PHOSPHORUS 3.1 MG/DL (2.5-4.9); POTASSIUM 4.2 MMOL/L (3.5-5.1); SODIUM 142 MMOL/L (136-145); TOTAL PROTEIN 7.1 G/DL (6.4-8.2)
[2017-04-12 08:00] VITALS: BP 133/76
[2017-04-12] MEDS: Pantoprazole Inj IV SCH (09:15)
[2017-04-12] MEDS: levETIRAcetam 500mg/5ml Liquid GT SCH (09:15)
[2017-04-12] MEDS: Ascorbic Acid 500mg tab GT SCH (09:15)
[2017-04-12] MEDS: Heparin 5000 units/ml inj SUBQ SCH (09:22)
--- NOTE | 2017-04-12 10:50 | Pulmonolgy Critical Care Note ---
Critical Care - Asmt/Plan Problems: (1) Sepsis (2) MDRO (multiple drug resistant organisms) resistance (3) Chronic respiratory failure (4) Gross hematuria (5) Feeding by G-tube (6) Tracheostomy in place Respiratory: monitor respiratory rate, CXR Cardiac: continue to monitor HR/BP Renal: F/U I&O, keep IV fluid Infectious Disease: check cultures, continue antibiotics Gastrointestinal: continue feedings/current rate Endocrine: monitor blood sugar, check TSH Hematologic: transfuse if hgb<8.5 Neurologic: PRN Ativan, PRN Morphine, keep patient comfortable Prophylaxis: Protonix, Heparin Notes Reviewed: cardio, renal Discussed with: nurses, consultants, case assemblermedia production support manager - Objective Last 24 Hour Vital Signs Date Time Temp Pulse Resp B/P (MAP) Pulse Ox O2 Delivery O2 Flow Rate FiO2 04/12/17 09:20 85 19 30 04/12/17 08:00 30 04/12/17 08:00 98.9 79 21 133/76 97 Non-Rebreather 30 04/12/17 07:09 74 14 30 04/12/17 04:38 85 14 30 04/12/17 04:00 30 04/12/17 04:00 97.8 86 17 146/88 98 Mechanical Ventilator 04/12/17 04:00 83 04/12/17 03:19 71 14 30 04/12/17 01:16 70 14 30 04/12/17 00:00 76 04/12/17 00:00 97.8 86 17 146/88 98 Mechanical Ventilator 04/11/17 22:44 72 14 30 04/11/17 21:01 85 16 Mechanical Ventilator 30 04/11/17 21:00 82 16 30 04/11/17 21:00 84 04/11/17 20:00 30 04/11/17 20:00 96.8 86 16 152/78 98 Mechanical Ventilator 04/11/17 19:06 85 16 30 04/11/17 17:07 86 19 30 04/11/17 16:00 98.5 77 18 115/68 95 Mechanical Ventilator 30 04/11/17 16:00 30 04/11/17 15:25 75 04/11/17 15:02 83 15 30 04/11/17 12:38 80 14 30 04/11/17 12:22 81 04/11/17 12:00 30 04/11/17 11:50 98.4 77 15 128/74 100 Mechanical Ventilator 30 04/11/17 11:23 77 15 30 Status: somnolent Condition: critical HEENT: atraumatic Neck: full ROM Lungs: clear Heart: HR/BP stable, HR/BP unstable, regular Abdomen: non-tender, feeding tube Extremities: edema Decubiti: location Accucheck: 121 Critical Care - Subjective ROS Limited/Unobtainable: No Condition: improving FI02: 30 Vent Support Breath Rate: 14 Vent Support Mode: AC Vent Tidal Volume: 600 Sputum Amount: Small PEEP: 5.0 PIP: 31 Tube Feeding Amount: 60 CXR: no change Labs: Laboratory Tests Test 04/12/17 04:00 White Blood Count 11.6 K/UL (4.8-10.8) H Red Blood Count 3.25 M/UL (4.70-6.10) L Hemoglobin 9.9 G/DL (14.2-18.0) L Hematocrit 29.6 % (42.0-52.0) L Mean Corpuscular Volume 91 FL (80-99) Mean Corpuscular Hemoglobin 30.5 PG (27.0-31.0) Mean Corpuscular Hemoglobin Concent 33.5 G/DL (32.0-36.0) Red Cell Distribution Width 14.3 % (11.6-14.8) Platelet Count 353 K/UL (150-450) Mean Platelet Volume 5.8 FL (6.5-10.1) L Neutrophils (%) (Auto) 70.7 % (45.0-75.0) Lymphocytes (%) (Auto) 16.0 % (20.0-45.0) L Monocytes (%) (Auto) 4.1 % (1.0-10.0) Eosinophils (%) (Auto) 8.7 % (0.0-3.0) H Basophils (%) (Auto) 0.5 % (0.0-2.0) Sodium Level 142 MMOL/L (136-145) Potassium Level 4.2 MMOL/L (3.5-5.1) Chloride Level 106 MMOL/L (98-107) Carbon Dioxide Level 25 MMOL/L (21-32) Anion Gap 11 mmol/L (5-15) Blood Urea Nitrogen 12 mg/dL (7-18) Creatinine 0.9 MG/DL (0.55-1.30) Estimat Glomerular Filtration Rate > 60 mL/min (>60) Glucose Level 105 MG/DL (74-106) Calcium Level 8.8 MG/DL (8.5-10.1) Phosphorus Level 3.1 MG/DL (2.5-4.9) Magnesium Level 2.0 MG/DL (1.8-2.4) Total Bilirubin 0.2 MG/DL (0.2-1.0) Aspartate Amino Transf (AST/SGOT) 37 U/L (15-37) Alanine Aminotransferase (ALT/SGPT) 30 U/L (12-78) Alkaline Phosphatase 65 U/L (46-116) Total Protein 7.1 G/DL (6.4-8.2) Albumin 2.2 G/DL (3.4-5.0) L Globulin 4.9 g/dL Albumin/Globulin Ratio 0.4 (1.0-2.7) L REY YAN Apr 12, 2017 10:50
[2017-04-12 12:00] VITALS: BP 137/78
--- NOTE | 2017-04-12 13:52 | Infectious Diseases Prog Note ---
Assessment/Plan Assessment/Plan Assessment: Sepsis- likely 2ry to UTI and bacteremia; resolved -u/a WBC 5-10, nit neg, leuk +3, RBC tntc; ucx 10-20K ESBL+ P.mirabilis -Bcx 04/05 1 CONS, m/l contaminant. Repeat BCx 04/08 NGTD -CXR 04/08: There is some scarring at the left lung base -CT abd/p w/: Malpositioned Munguia, balloon in the prostatic urethra. Distention of urinary bladder. High attenuation material worrisome for hemorrhage however other history or underlying mass lesion is not excluded. Small amount of air in the urinary bladder may be from Munguia catheter. Mild ectasia of the bilateral renal collecting systems. This may be from mild urinary bladder obstruction. Otherwise, kidneys are normal. Percutaneous gastric tube. No free fluid or free air. No bowel obstruction. 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 Full Code Plan: - continue invanz d# 3 / ( 04/10 SP IV Vancomycin # 5 / ) -f/u final cx -Monitor CBC/BMP, temperatures Subjective Constitutional: Denies: no symptoms, fever, chills, fatigue, anorexia, drenching sweats, other Allergies: Coded Allergies: No Known Allergies (Unverified , 12/13/16) Objective Vital Signs Last 24 Hour Vital Signs Date Time Temp Pulse Resp B/P (MAP) Pulse Ox O2 Delivery O2 Flow Rate FiO2 04/12/17 13:27 76 14 30 04/12/17 12:00 30 04/12/17 12:00 69 04/12/17 12:00 99.4 74 14 137/78 100 Mechanical Ventilator 30 04/12/17 10:50 71 14 30 04/12/17 09:20 85 19 30 04/12/17 08:00 30 04/12/17 08:00 98.9 79 21 133/76 97 Non-Rebreather 30 04/12/17 08:00 71 04/12/17 07:09 74 14 30 04/12/17 04:38 85 14 30 04/12/17 04:00 30 04/12/17 04:00 97.8 86 17 146/88 98 Mechanical Ventilator 04/12/17 04:00 83 04/12/17 03:19 71 14 30 04/12/17 01:16 70 14 30 04/12/17 00:00 76 04/12/17 00:00 97.8 86 17 146/88 98 Mechanical Ventilator 04/11/17 22:44 72 14 30 04/11/17 21:01 85 16 Mechanical Ventilator 30 04/11/17 21:00 82 16 30 04/11/17 21:00 84 04/11/17 20:00 30 04/11/17 20:00 96.8 86 16 152/78 98 Mechanical Ventilator 04/11/17 19:06 85 16 30 04/11/17 17:07 86 19 30 04/11/17 16:00 98.5 77 18 115/68 95 Mechanical Ventilator 30 04/11/17 16:00 30 04/11/17 15:25 75 04/11/17 15:02 83 15 30 Height (Feet): 5 Height (Inches): 4.00 Weight (Pounds): 130 HEENT: anicteric Respiratory/Chest: normal breath sounds Cardiovascular: regularly irregular Abdomen: no organomegaly Laboratory Tests Test 04/12/17 04:00 White Blood Count 11.6 K/UL (4.8-10.8) H Red Blood Count 3.25 M/UL (4.70-6.10) L Hemoglobin 9.9 G/DL (14.2-18.0) L Hematocrit 29.6 % (42.0-52.0) L Mean Corpuscular Volume 91 FL (80-99) Mean Corpuscular Hemoglobin 30.5 PG (27.0-31.0) Mean Corpuscular Hemoglobin Concent 33.5 G/DL (32.0-36.0) Red Cell Distribution Width 14.3 % (11.6-14.8) Platelet Count 353 K/UL (150-450) Mean Platelet Volume 5.8 FL (6.5-10.1) L Neutrophils (%) (Auto) 70.7 % (45.0-75.0) Lymphocytes (%) (Auto) 16.0 % (20.0-45.0) L Monocytes (%) (Auto) 4.1 % (1.0-10.0) Eosinophils (%) (Auto) 8.7 % (0.0-3.0) H Basophils (%) (Auto) 0.5 % (0.0-2.0) Sodium Level 142 MMOL/L (136-145) Potassium Level 4.2 MMOL/L (3.5-5.1) Chloride Level 106 MMOL/L (98-107) Carbon Dioxide Level 25 MMOL/L (21-32) Anion Gap 11 mmol/L (5-15) Blood Urea Nitrogen 12 mg/dL (7-18) Creatinine 0.9 MG/DL (0.55-1.30) Estimat Glomerular Filtration Rate > 60 mL/min (>60) Glucose Level 105 MG/DL (74-106) Calcium Level 8.8 MG/DL (8.5-10.1) Phosphorus Level 3.1 MG/DL (2.5-4.9) Magnesium Level 2.0 MG/DL (1.8-2.4) Total Bilirubin 0.2 MG/DL (0.2-1.0) Aspartate Amino Transf (AST/SGOT) 37 U/L (15-37) Alanine Aminotransferase (ALT/SGPT) 30 U/L (12-78) Alkaline Phosphatase 65 U/L (46-116) Total Protein 7.1 G/DL (6.4-8.2) Albumin 2.2 G/DL (3.4-5.0) L Globulin 4.9 g/dL Albumin/Globulin Ratio 0.4 (1.0-2.7) L Current Medications Medications (Trade) Dose Ordered Sig/Dolly Route PRN Reason Start Time Stop Time Status Last Admin Dose Admin Acetaminophen (Tylenol) 650 mg Q6H PRN GT Mild Pain/Temp > 100.5 04/07/17 11:00 05/07/17 10:59 Ascorbic Acid (Vitamin C) 500 mg TWICE A DAY GT 04/07/17 09:00 05/07/17 08:59 04/12/17 09:15 Chlorhexidine Gluconate (Leesa-Hex 2%) 1 applic DAILY@1999 TOPIC 04/10/17 20:00 05/10/17 19:59 04/11/17 20:39 Clotrimazole (Lotrimin) 1 applic EVERY 12 HOURS TOPIC 04/08/17 23:00 05/08/17 22:59 04/12/17 09:15 Dextrose (Dextrose 50%) STAT PRN IV Hypoglycemia 04/05/17 22:00 05/05/17 21:59 Ertapenem 1 gm/ Sodium Chloride 55 ml @ 110 mls/hr Q24H IVPB 04/10/17 22:00 04/15/17 21:59 04/11/17 22:48 Heparin Sodium (Porcine) (Heparin 5000 units/ml) 5,000 units EVERY 12 HOURS SUBQ 04/06/17 09:00 05/06/17 08:59 04/12/17 09:22 Insulin Aspart (NovoLOG) EVERY 6 HOURS SUBQ 04/08/17 12:00 05/06/17 20:59 04/12/17 05:22 Levetiracetam (Keppra) 1,000 mg DAILY GT 04/10/17 09:00 05/10/17 08:59 04/12/17 09:15 Levothyroxine Sodium (Synthroid) 150 mcg DAILY GT 04/06/17 09:00 05/06/17 08:59 04/12/17 09:15 Lorazepam (Ativan 2mg/ml 1ml) 2 mg EVERY 2 HOURS PRN IV For Anxiety 04/05/17 22:00 04/12/17 21:59 Morphine Sulfate (Morphine Sulfate) 4 mg EVERY 4 HOURS PRN IVP Severe Pain (Pain Scale 7-10) 04/05/17 22:00 04/12/17 21:59 Ondansetron HCl (Zofran) 4 mg Q6H PRN IVP Nausea & Vomiting 04/05/17 22:00 05/05/17 21:59 Pantoprazole (Protonix) 40 mg DAILY IV 04/06/17 09:00 05/06/17 08:59 04/12/17 09:15 Polyethylene Glycol (Miralax) 17 gm DAILYPRN PRN ORAL Constipation 04/05/17 22:00 05/05/17 21:59 Sodium Chloride 1,000 ml @ 50 mls/hr Q20H IV 04/06/17 18:45 05/06/17 18:44 04/11/17 19:02 KENDRICK RAMIRES M.D. Apr 12, 2017 13:52
[2017-04-12 16:00] VITALS: BP 128/74
--- NOTE | 2017-04-15 11:39 | Discharge Summary ---
Discharge Summary Hospital Course Date of Admission Apr 05, 2017 at 21:15 Date of Discharge Apr 12, 2017 at 17:49 Admitting Diagnosis severe sepsis, vent dependent, gross hematuria HPI Casandra Castañeda is a 66 year old male who was admitted on Apr 05, 2017 at 21: 15 for Severe Sepsis, Vent Dependent, Gross Hematuria Hospital Course dc summary #[id number] Discharge Medications New Medications: Ertapenem (Invanz) 1 Gm Vial 1 GM IV BOLUS DAILY for 7 Days, VIAL Continued Medications: Acetaminophen* (Acetaminophen*) 160 Mg/5 Ml Oral.susp 640 MG ORAL Q4H PRN for Mild Pain/Temp > 100.5, ML Albuterol Sulfate* (Albuterol Sulfate Hhn*) 2.5 Mg/3 Ml Vial.neb 3 ML INH Q4H PRN for Shortness of Breath, EA Docusate Sodium* (Colace*) 100 Mg Capsule 100 MG ORAL DAILY, CAP Levothyroxine Sodium* (Levothyroxine Sodium*) 150 Mcg Tablet 150 MCG GT DAILY, TAB Take in the morning on an empty stomach, at least 30 minutes before food. Discharge Condition Upon Discharge: stable Discharge Disposition Patient was discharged to SNF/Subacute Facility(03) Discharge Diagnoses: Milton (David)Mehnaz NP Apr 15, 2017 11:39
--- NOTE | 2017-04-16 04:30 | Discharge Summary 2 SIG ---
DATE OF ADMISSION: 04/05/2017 DATE OF DISCHARGE: 04/12/2017 REASON FOR ADMISSION: 66-year-old male with a past medical history significant for ventilator-dependent respiratory failure, tracheostomy, COPD, hypertension, anoxic encephalopathy, dysphagia, G-tube, diabetes mellitus, and chronic kidney disease, presented with gross hematuria. Per nursing staff from the intermediate facility, hematuria was noted for one day. In the emergency department, the patient was found to be febrile and tachycardic with leukocytosis -34.8. Urinalysis with evidence of pyuria, and possible UTI. CT of the abdomen and pelvis revealed malposition of Sears, balloon in the prostatic urethra, and distention of urinary bladder. No free fluid or free air. No bowel obstruction. Urologist was contacted. Sears catheter was repositioned. The patient was admitted for further management with diagnoses of sepsis, hematuria, possible urinary tract infection, anemia. HOSPITAL COURSE: The patient was admitted to [facility]. Ventilator support and tracheostomy care were provided. Pulmonary toilet was provided. Baseline ABG was done and settings were titrated:AC rate was decreased to 14. Repeated ABG was stable. Same settings continued. Chest x-ray revealed no definite acute chest disease. Repeated chest x-ray also revealed no acute disease. The patient was on antibiotic. Infectious Diseases specialist followed. Blood culture initially one out of four Staphylococcus, coagulase-negative. Urine culture revealed Proteus ESBL . Repeated blood cultures were negative. Continue antibiotics in the intermediate facility as per Infectious Disease recommendation to complete the course. Hemoglobin and hematocrit were closely monitored. The patient undergone transfusion of two units of packed red blood cells. Anemia workup was consistent with anemia of chronic disease. Venous duplex of bilateral lower extremities was negative. SCD were placed. Seizure precautions were maintained. Keppra was continued. Strict aspiration precautions were continued. Feeding tube tolerance was monitored. The patient was able to tolerate tube feeding. Site care provided. TSH was within normal limits. Current dose of levothyroxine was continued. The patient was on gentle IV fluids. Renal parameters and electrolytes were closely monitored. Hematuria resolved after reposition of Sears catheter. Renal ultrasound revealed no hydronephrosis. With gentle IV fluids, initial BUN- 37 and creatinine- 1.3 down to BUN -12 and creatinine- 0.9. The patient had sacral decubitus, un-stageable and left lateral first metatarsal head, stage II, both present on admission. Wound care provided as per wound care nurse recommendation. Blood sugar was managed with sliding scale of insulin and was stable. Hemoglobin A1c- 7.8. Needs further optimization of anti-glycemic regimen as outpatient. The patient was stable for transfer back to intermediate facility on antibiotics as recommended by Infectious Disease specialist. FINAL DIAGNOSES: 1. Sepsis. 2. Urinary tract infection with Proteus extended spectrum beta-lactamase. 3. Hematuria due to malpositioned Sears catheter, resolved. 4. Anemia requiring blood transfusion. 5. Anemia of chronic disease. 6. Ventilator-dependent respiratory failure with tracheostomy status. 7. Dysphagia, gastrostomy tube. 8. Anoxic encephalopathy. 9. Acute on chronic kidney disease, resolved. 10. Seizure disorder. 11. Hypothyroidism. DISCHARGE MEDICATIONS: See medication reconciliation list. DISCHARGE INSTRUCTIONS: The patient was discharged to subacute facility. FOLLOWUP: Follow up with medical doctor and optical laboratory mechanic at the facility. Lea Nicolas M.D. Mehnaz [facility]Bet[facility] HospitalOma [facility]Belinda DR: Yosi JOB#: [id number] CC: HARSHA
--- NOTE | 2017-04-16 08:31 | Cardiology Report ---
APPROVED REPORT EKG Measurement Heart [id number] Sinus tachycardia Right axis deviation Pulmonary disease pattern Right ventricular hypertrophy Abnormal ECG
== END 2017-04-12 17:49 | DRG 720 ==
LOC: EDBD 17:21 → EMR 18:15 → 2W 21:15 → ENRESERV 21:51 → EDBEDREQ 22:04 → 2W 04-11 09:40
PROC: 5A1955Z Respiratory Ventilation, Greater than 96 Consecutive Hours (ICD-10-PCS; principal; 2017-04-05)
PROC: 02HV33Z Insertion of Infusion Device into Superior Vena Cava, Percutaneous Approach (ICD-10-PCS; 2017-04-10)
PROC: B548ZZA Ultrasonography of Superior Vena Cava, Guidance (ICD-10-PCS; 2017-04-10)
DX: A41.9 Sepsis, unspecified organism (principal); G93.1 Anoxic brain damage, not elsewhere classified; Z99.11 Dependence on respirator [ventilator] status; R40.3 Persistent vegetative state; R56.9 Unspecified convulsions; Z93.0 Tracheostomy status; J96.10 Chronic respiratory failure, unspecified whether with hypoxia or hypercapnia; J44.9 Chronic obstructive pulmonary disease, unspecified; E11.22 Type 2 diabetes mellitus with diabetic chronic kidney disease; R13.10 Dysphagia, unspecified; N39.0 Urinary tract infection, site not specified; Z93.1 Gastrostomy status; R31.0 Gross hematuria; K21.9 Gastro-esophageal reflux disease without esophagitis; I12.9 Hypertensive chronic kidney disease with stage 1 through stage 4 chronic kidney disease, or unspecified chronic kidney disease; N18.9 Chronic kidney disease, unspecified; R00.0 Tachycardia, unspecified; T83.028A Displacement of other urinary catheter, initial encounter; R65.20 Severe sepsis without septic shock; I69.998 Other sequelae following unspecified cerebrovascular disease
CPT/HCPCS: 36415; 36569; 36600; 71010; 74177; 76775; 76937; 80048; 80053; 80069; 80202; 80299; 81001; 82607; 82728; 82746; 82803; 82962; 83036; 83540; 83550; 83605; 83735; 84100; 84443; 85007; 85025; 85610; 85730; 86850; 86900; 86901; 86920; 87040; 87081; 87086; 87181; 93005; 93970; 94002; 94003; 94664; 99285; J1815

== ENCOUNTER 2019-08-18 14:03 | Inpatient (IN) | payer MEDICAID ==
[~2019-08-18] VITALS: Ht 172.7 cm; Wt 73.5 kg
[~2019-08-18 14:03] MED LIST changes: +ACETAMINOP160 MG/52 GT; -ACETAMINOP160 MG/52 ORAL; +ALBUTEROL2.5 MG/3 M INH; +ATIVAN1 MG ORAL; +COLACE100 MG GT; -COLACE100 MG ORAL; +INVANZ1 G1 IV BOLUS; +KEPPRA500 M4 GT; +LEVOTHYROXINE150 MCG GT; -LEVOTHYROXINE150 MCG ORAL; +MILK OF MA400 MG/51 GT; +MULTI-DELYN237 ML GT; +PROMOD946 ML GT; +PROTONIX40 MG GT; +SENOKOT8.6 MG GT; +VITAMIN C250 MG GT; -VITAMIN C250 MG ORAL
--- NOTE | 2019-08-18 14:20 | NUR ---
ED Nurse Note: Patient brought into ED from [facility] due to fever today. patient is awake, nonverbal, vent dependent. patient placed on a hospital gown, on a bus monitor, on a vent, RT at bedside.
[2019-08-18] MEDS ORDERED: ATENOLOL25 MG GT (14:39)
[2019-08-18] MEDS ORDERED: CRANBERRY425 MG GT (14:39)
[2019-08-18] MEDS ORDERED: FAMOTIDINE20 MG GT (14:39)
[2019-08-18] MEDS ORDERED: JUVEN PACKET1 EAC1 GT (14:41)
--- NOTE | 2019-08-18 14:49 | Emergency Room Report ---
History of Present Illness General Chief Complaint: Fever Source: EMS Present Illness HPI Patient presents from nursing facility with reports of fever Patient himself is nonverbal which limits the history of present illness significantly patient has multiple comorbidities including tracheostomy and Vent dependent There was no reports of vomiting or diarrhea patient was found to be febrile At the nursing facility Unknown regarding cough there was no reports of any new rash Patient has multiple decubitus ulcers however Allergies: Coded Allergies: No Known Allergies (Unverified , 12/13/16) Patient History Limited by: medical condition Past Medical History: see triage record Reviewed Nursing Documentation: PMH: Agreed; PSxH: Agreed Nursing Documentation-PMH Hx Cardiac Problems: Yes - svt,hyperlipidi Hx Hypertension: Yes - chronic kidney dz Hx Diabetes: Yes Hx Cancer: No Hx Gastrointestinal Problems: Yes - GERD, dysphagia, G-tube Review of Systems All Other Systems: limited - Other than the ones mentioned in the history of present illness all others are reviewed however they do stay limited due to the patient's mental status Physical Exam Vital Signs Date Time Temp Pulse Resp B/P (MAP) Pulse Ox O2 Delivery O2 Flow Rate FiO2 08/18/19 14:11 98.4 72 16 70/45 (53) 98 Mechanical Ventilator Sp02 EP Interpretation: reviewed, normal General Appearance: no apparent distress Head: normocephalic Eyes: bilateral eye PERRL ENT: dry mucus membranes Neck: other - Patient has tracheostomy in place no obvious crepitus, tongue is protruded Respiratory: no retraction, no accessory muscle use, crackles - Bilaterally Cardiovascular #1: regular rate, rhythm Gastrointestinal: non tender, soft, other - Feeding tube in place no obvious erythema Musculoskeletal: other - Patient chronically debilitated contracted in the upper and lower extremity does not follow command Neurologic: other - Minimal response to physical stimuli, otherwise not verbal does not follow commands significantly decreased GCS Skin: other - Multiple decubitus ulcers, please refer to pictures from nursing report Lymphatic: no adenopathy Procedures Critical Care Time Critical Care Time 40 minutes for multiple re-evaluations critical findings concerning for cardiopulmonary arrest not including any procedural time Medical Decision Making Diagnostic Impression: Primary Impression: Fever Additional Impressions: Sepsis Tracheostomy in place ER Course Multiple differentials including but not limited to cardiac, cardiopulmonary, infectious process entertained patient is provided with IV hydration White blood cell count is elevated and x-ray shows question of possible Pneumonia broad-spectrum antibiotics initiated Patient's blood pressure is somewhat labile However arm is significantly contracted patient has good cap refills And at this time will have further inpatient care Labs Test 08/18/19 15:00 08/18/19 15:07 08/18/19 17:15 Urine Color Yellow Urine Appearance Slightly cloudy Urine pH 7 (4.5-8.0) Urine Specific [place] 1.005 (1.005-1.035) Urine Protein 3+ (NEGATIVE) Urine Glucose (UA) Negative (NEGATIVE) Urine Ketones Negative (NEGATIVE) Urine Blood 4+ (NEGATIVE) Urine Nitrite Negative (NEGATIVE) Urine Bilirubin Negative (NEGATIVE) Urine Urobilinogen Normal MG/DL (0.0-1.0) Urine Leukocyte Esterase 3+ (NEGATIVE) Urine RBC 10-15 /HPF (0 - 0) Urine WBC 20-30 /HPF (0 - 0) Urine Squamous Epithelial Cells Occasional /LPF Urine Bacteria Few /HPF (NONE) White Blood Count 18.6 K/UL (4.8-10.8) Red Blood Count 3.01 M/UL (4.70-6.10) Hemoglobin 8.5 G/DL (14.2-18.0) Hematocrit 24.9 % (42.0-52.0) Mean Corpuscular Volume 83 FL (80-99) Mean Corpuscular Hemoglobin 28.2 PG (27.0-31.0) Mean Corpuscular Hemoglobin Concent 34.1 G/DL (32.0-36.0) Red Cell Distribution Width 13.5 % (11.6-14.8) Platelet Count 261 K/UL (150-450) Mean Platelet Volume 5.8 FL (6.5-10.1) Neutrophils (%) (Auto) % (45.0-75.0) Lymphocytes (%) (Auto) % (20.0-45.0) Monocytes (%) (Auto) % (1.0-10.0) Eosinophils (%) (Auto) % (0.0-3.0) Basophils (%) (Auto) % (0.0-2.0) Differential Total Cells Counted 100 Neutrophils % (Manual) 91 % (45-75) Lymphocytes % (Manual) 5 % (20-45) Monocytes % (Manual) 1 % (1-10) Eosinophils % (Manual) 1 % (0-3) Basophils % (Manual) 0 % (0-2) Band Neutrophils 2 % (0-8) Platelet Estimate Adequate Platelet Morphology Normal Red Blood Cell Morphology Normal Sodium Level 130 MMOL/L (136-145) Potassium Level 4.7 MMOL/L (3.5-5.1) Chloride Level 93 MMOL/L (98-107) Carbon Dioxide Level 24 MMOL/L (21-32) Anion Gap 13 mmol/L (5-15) Blood Urea Nitrogen 42 mg/dL (7-18) Creatinine 1.8 MG/DL (0.55-1.30) Estimat Glomerular Filtration Rate 37.9 mL/min (>60) Glucose Level 120 MG/DL (74-106) Lactic Acid Level 1.60 mmol/L (0.4-2.0) Calcium Level 8.4 MG/DL (8.5-10.1) Total Bilirubin 0.4 MG/DL (0.2-1.0) Aspartate Amino Transf (AST/SGOT) 26 U/L (15-37) Alanine Aminotransferase (ALT/SGPT) 20 U/L (12-78) Alkaline Phosphatase 73 U/L (46-116) Total Creatine Kinase 88 U/L (26-308) Creatine Kinase MB 0.6 NG/ML (0.0-3.6) Creatine Kinase MB Relative Index 0.6 Troponin I 0.000 ng/mL (0.000-0.056) Pro-B-Type Natriuretic Peptide 2490 pg/mL (0-125) Total Protein 7.5 G/DL (6.4-8.2) Albumin 2.0 G/DL (3.4-5.0) Globulin 5.5 g/dL Albumin/Globulin Ratio 0.4 (1.0-2.7) Lipase 173 U/L (73-393) Arterial Blood pH 7.576 (7.350-7.450) Arterial Blood Partial Pressure CO2 24.6 mmHg (35.0-45.0) Arterial Blood Partial Pressure O2 180.3 mmHg (75.0-100.0) Arterial Blood HCO3 22.3 mmol/L (22.0-26.0) Arterial Blood Oxygen Saturation 99.2 % (95-100) Arterial Blood Base Excess 1.1 (-2-2) Karson Test Positive Rhythm Strip Diag. Results EP Interpretation: yes Rate: 77 Rhythm: NSR, no PVC's, no ectopy Chest X-Ray Diagnostic Results Chest X-Ray Diagnostic Results : Chest X-Ray Ordered: Yes # of Views/Limited/Complete: 1 View Indication: Shortness of Breath EP Interpretation: Yes Interpretation: no effusion, no pneumothorax, other - Left lower lobe atelectasis consider infiltrate Impression: Other - Left lower lobe atelectasis consider infiltrate Electronically Signed by: Stewart Walker DO Last Vital Signs Date Time Temp Pulse Resp B/P (MAP) Pulse Ox O2 Delivery O2 Flow Rate FiO2 08/18/19 14:11 98.4 72 16 70/45 (53) 98 Mechanical Ventilator Status: improved Disposition: ADMITTED INPATIENT Condition: Critical Stewart Walker DO Aug 18, 2019 14:49
[2019-08-18 15:22] LABS: APPEARANCE,URINE SLIGHTLY CLOUDY; BILIRUBIN, URINE NEGATIVE (NEGATIVE); GLUCOSE, URINE (UA) NEGATIVE (NEGATIVE); KETONES,URINE NEGATIVE (NEGATIVE); LEUKOCYTE ESTERASE ,URINE 3+ (NEGATIVE); NITRITE,URINE NEGATIVE (NEGATIVE); PH,URINE 7 (4.5-8.0); PROTEIN,URINE 3+ (NEGATIVE); UROBILINOGEN,URINE NORMAL MG/DL (0.0-1.0)
[2019-08-18 15:27] LABS: COLOR,URINE YELLOW
--- NOTE | 2019-08-18 15:27 | Diagnostic Imaging Report ---
Indication: Dyspnea Comparison: 04/08/2017 A single view chest radiograph was obtained. Findings: A dense retrocardiac opacification demonstrated with silhouetting of the left hemidiaphragm appearing worse than on the prior occasion. This was seen to some extent on the prior occasion. Heart size is normal. Lung volumes are low. Tracheostomy is noted. Bones are osteopenic. IMPRESSION: Retrocardiac density. Consider pneumonia although the finding was present to some extent on the prior occasion indicating a part of this may be chronic. Correlate clinically. Tracheostomy
[2019-08-18 15:56] LABS: ANION GAP 13 mmol/L (5-15); BLOOD UREA NITROGEN 42 mg/dL (7-18); CALCIUM 8.4 MG/DL (8.5-10.1); CARBON DIOXIDE 24 MMOL/L (21-32); CHLORIDE 93 MMOL/L (98-107); CREATININE 1.8 MG/DL (0.55-1.30); POTASSIUM 4.7 MMOL/L (3.5-5.1); SODIUM 130 MMOL/L (136-145)
[2019-08-18 15:58] LABS: HEMATOCRIT 24.9 % (42.0-52.0); HEMOGLOBIN 8.5 G/DL (14.2-18.0); MEAN CORPUSCULAR VOLUME 83 FL (80-99); PLATELET COUNT 261 K/UL (150-450); RED BLOOD COUNT 3.01 M/UL (4.70-6.10); RED CELL DISTRIBUTION WIDTH 13.5 % (11.6-14.8); WHITE BLOOD COUNT 18.6 K/UL (4.8-10.8)
[2019-08-18 16:00] VITALS: BP 83/56
[2019-08-18 16:09] LABS: ALANINE AMINOTRANSFERASE 20 U/L (12-78); ALBUMIN/GLOBULIN RATIO 0.4 (1.0-2.7); ALKALINE PHOSPHATASE 73 U/L (46-116); ASPARTATE AMINO TRANSFERASE 26 U/L (15-37); BILIRUBIN,TOTAL 0.4 MG/DL (0.2-1.0); CKMB 0.6 NG/ML (0.0-3.6); CREATINE KINASE 88 U/L (26-308)
[2019-08-18] MEDS ORDERED: Piperacillin/Tazobactam 3.375 GM in NS 110 ML IVPB ONE (17:00)
[2019-08-18] MEDS ORDERED: Vancomycin 1 GM in NS 275 ML IVPB ONE (17:00)
[2019-08-18 18:24] VITALS: BP 83/54
--- NOTE | 2019-08-18 18:27 | NUR ---
ED Nurse Note: report given to Emilee SOW, endorsed all plan of care to Emilee SOW. Dr. Walker is ok for the patient to be transferred to [facility] with the current vitals signs at this time see vitals flowsheet.
--- NOTE | 2019-08-18 18:30 | NUR ---
ER DISCHARGE NOTE: patient transferred to [facility]W on ACLS protocol without complication, endorsed all plan of care to Emilee SOW.
--- NOTE | 2019-08-18 18:54 | NUR ---
NURSE NOTES: received patient report from nash SOW from ER. patient cam in via gurney. classroom monitor started, iv line noted. ST on the monitor. VS taken and recorded. no belongings found. under the care of dr rojas. will continue to monitor.
[2019-08-18 18:56] VITALS: BP 100/42
--- NOTE | 2019-08-18 19:27 | NUR ---
NURSE NOTES: report given to cecilia vazquez
--- NOTE | 2019-08-18 19:30 | NUR ---
NURSE NOTES: Received report from Emilee SOW. Patient resting in bed.
[2019-08-18] MEDS ORDERED: Albuterol ud Inhalation HHN PRN (20:00)
--- NOTE | 2019-08-18 21:00 | NUR ---
NURSE NOTES: Called and left message for Dr. oGnzalez. Awaiting for call back
[2019-08-18] MEDS: Acetaminophen 650mg/20.3ml ORAL PRN (21:29)
[2019-08-18] MEDS: Heparin 5000 units/ml inj SUBQ SCH (22:03)
[2019-08-19] VITALS: BP 95/55
[2019-08-19] MEDS: Piperacillin/Tazobactam 3.375 GM in NS 110 ML IVPB SCH ×3 (02:23→17:51)
[2019-08-19 04:00] VITALS: BP 94/46
--- NOTE | 2019-08-19 04:30 | Consultation ---
DATE OF CONSULTATION: 08/18/2019 CARDIOLOGY CONSULTATION CONSULTING PHYSICIAN: Kyaw Gonzalez M.D. REQUESTING PHYSICIAN: Amadeo Pleitez M.D. REASON FOR CONSULTATION: Shock. HISTORY OF PRESENT ILLNESS: This is a 68-year-old, who has ventilator-dependent respiratory failure with tracheostomy. He was transferred from the care home facility for evaluation of fever. He was notably hypotensive. I have been asked to assist with cardiovascular care. His records are reviewed for the remainder of this report as the patient is on a ventilator. PAST MEDICAL HISTORY: Dysphagia, gastrostomy tube, gastroesophageal reflux disease, type 2 diabetes mellitus, chronic kidney disease, hypertension, paroxysmal supraventricular tachycardia, hyperlipidemia, and chronic respiratory failure with trach. MEDICATIONS: Prior to admission, reviewed and reconciled. ALLERGIES: None. FAMILY HISTORY: Not known. SOCIAL HISTORY: Not obtainable. REVIEW OF SYSTEMS: Also not obtainable. PHYSICAL EXAMINATION: VITAL SIGNS: In the emergency room, blood pressure 70/45, heart rate 72, respiratory rate 16, and temperature 98.4. HEENT: Dry mucous membranes. Trach site with thin secretions. Protruding tongue. LUNGS: Bilateral rales. HEART: Regular rhythm and rate. Normal S1, S2 with no appreciable murmur. ABDOMEN: Soft. Feeding tube intact. Contractures noted. EXTREMITIES: No edema. LABORATORY DATA: Urinalysis with 20 to 30 white cells, 10 to 15 red cells. White count is 18.6 and hemoglobin 8.5. Sodium 130, potassium 4.7, chloride 93, bicarb 24, BUN 42, and creatinine 1.8. Troponin 0. Pro-natriuretic peptide 2490. Albumin 2.0. ABG, 7.57, 25, 180. Chest x-ray was reviewed and notable for left lower lobe infiltrate. EKG revealed sinus rhythm at 77 with no acute abnormalities. IMPRESSION: 1. Sepsis. 2. Hypovolemia and dehydration. 3. Shock due to above. 4. Healthcare-associated pneumonia. 5. Urinary tract infection. 6. Ventilator-dependent respiratory failure. 7. Leukocytosis. 8. Respiratory alkalosis. 9. Hyponatremia. 10. Acute on chronic kidney injury. 11. Elevated natriuretic peptide assay with no clinical signs of acute congestive heart failure at this time. RECOMMENDATIONS: 1. Volume resuscitation. 2. Pressors if response is inadequate. 3. Nutrition by feeding tube. 4. Broad-spectrum antimicrobials. 5. Ventilator support. 6. DVT prophylaxis. 7. Echocardiographic assessment of ejection fraction. Kyaw Gonzalez M.D. DR: WIL JOB#: [id number] CC:
[2019-08-19] MEDS: Acetaminophen 650mg/20.3ml ORAL PRN (04:55)
--- NOTE | 2019-08-19 06:00 | NUR ---
NURSE NOTES: Entered pt weight from ER. Bed scale not working. Put in work order.
--- NOTE | 2019-08-19 06:00 | NUR ---
NURSE NOTES: Checked pt blood glucose at 0340, result 69. [place] juice given. rechecked BS, result 82. Rechecked BS 107
[2019-08-19 06:07] LABS: HEMATOCRIT 23.6 % (42.0-52.0); HEMOGLOBIN 7.9 G/DL (14.2-18.0); MEAN CORPUSCULAR VOLUME 83 FL (80-99); PLATELET COUNT 254 K/UL (150-450); RED BLOOD COUNT 2.84 M/UL (4.70-6.10); RED CELL DISTRIBUTION WIDTH 13.3 % (11.6-14.8); WHITE BLOOD COUNT 17.9 K/UL (4.8-10.8)
--- NOTE | 2019-08-19 06:45 | NUR ---
NURSE NOTES: Notified Dr. Pleitez regarding patient Hgb level, Diet order, blood glucose level. Dr. Pleitez present at bedside to assess patient. Will put in orders
--- NOTE | 2019-08-19 07:10 | NUR ---
NURSE NOTES: RECEIVED BED SIDE REPORT FROM [employer] DIRECTOR [employer] MOULDING OPERATOR. RECEIVED PT WITH HOB ELEVATED 45 DEGREE OBTUNDE TRACH TO VENT NON-VERBAL.TOLERATING WELL CURRENTS VENT SETTINGS,O2 SAT 100% ,RENDERED TRACH CARE AND ORAL HYGIENE,SX,D MOD AMT OF TICK YELLOWISH SECRETIONS. PT WITH GT PATENT AND INTACT,NPO AT THIS TIME. DR PAUL CAME TO SEE THE PT AND ORDER CT WITHOUT CONTRAST OF ABD ,PELVIS,CHEST AND JIMÉNEZ. PT IS NPO EXCEPT MEDS.FULL BODY ASSESSMENT DONE.PT REPOSITIONED Q2HRS TO PROVIDE COMFORT AND TO PREVENT FURTHER SKIN BREAK DOWN. WILL CONT TO MONITOR.
--- NOTE | 2019-08-19 07:15 | NUR ---
HAND-OFF: Report given to JUANJOSE Posey. Patient in stable condition.
[2019-08-19 07:18] LABS: ALANINE AMINOTRANSFERASE 23 U/L (12-78); ALBUMIN 1.7 G/DL (3.4-5.0); ALBUMIN/GLOBULIN RATIO 0.3 (1.0-2.7); ALKALINE PHOSPHATASE 68 U/L (46-116); ANION GAP 12 mmol/L (5-15); ASPARTATE AMINO TRANSFERASE 29 U/L (15-37); BILIRUBIN,TOTAL 0.5 MG/DL (0.2-1.0); BLOOD UREA NITROGEN 39 mg/dL (7-18); CALCIUM 8.2 MG/DL (8.5-10.1); CARBON DIOXIDE 23 MMOL/L (21-32); CHLORIDE 97 MMOL/L (98-107); CREATININE 1.7 MG/DL (0.55-1.30); SODIUM 132 MMOL/L (136-145)
[2019-08-19] MEDS ORDERED: Heparin1,000 units/500ml Premix(Conc:2 units/ml) IV PRN (07:30)
[2019-08-19] MEDS ORDERED: Lidocaine 1% Plain 30 ml INJ PRN (07:30)
[2019-08-19 08:00] VITALS: BP 100/52
--- NOTE | 2019-08-19 08:45 | History and Physical Report ---
DATE OF ADMISSION: 08/18/2019 CHIEF COMPLAINT: Fevers and sepsis. HISTORY OF PRESENT ILLNESS: The patient is an unfortunate 68-year-old male. He has a history of developmental delay. He has chronic respiratory failure and is vent dependent. He has a history of seizure disorder, GERD, and chronic anemia. [facility] with complaints of [facility]. At the [facility], the patient recently developed fevers and had leukocytosis. He was started on broad spectrum IV antibiotic therapy. In spite of antibiotic therapy at the [facility], the patient continues to spike fevers. In addition, to his fevers the patient has a history of wounds. Over the last week wounds have been shearing despite aggressive wound care from the staff, which includes turning every several hours. On evaluation in the emergency room, the patient was febrile, had leukocytosis. The patient was pancultured. He has been resumed back on broad spectrum IV antibiotics. He is now admitted for further evaluation and care. PAST MEDICAL HISTORY: As above. PAST SURGICAL HISTORY: Includes a history of a trach and a G-tube. CURRENT MEDICATIONS: Reconciled and reviewed. ALLERGIES: None. FAMILY HISTORY: None. SOCIAL HISTORY: There is no known history of tobacco, ethanol, or drugs. REVIEW OF SYSTEMS: From the patient is unobtainable as he is nonverbal at baseline. PHYSICAL EXAMINATION: VITAL SIGNS: Temperature was 102.1, pulse 110, respirations 16, and blood pressure 94/46. GENERAL: The patient is a chronic ill-appearing male. He is nonverbal at baseline. NECK: Supple. Trach was midline without any discharge. HEART: Regular rate and rhythm. LUNGS: Clear. ABDOMEN: Soft, nontender, and nondistended. EXTREMITIES: Without clubbing or cyanosis. The patient is noted to have contractures over the left foot. There is a wound on the lateral aspect on the right foot, on the first big toe. There is a large sacral wound noted. There is some yellowish slough as well as a wound on the back of the head. PERTINENT DATA: UA showed 20 to 30 wbc's. Chest x-ray showed a possible retrocardiac infiltrate. White count was 18,000, hemoglobin 8.5, hematocrit 24, and platelet count of 100,000. Sodium 130, potassium 4.7, chloride 93, bicarb 24, BUN 42, and creatinine 1.8. ASSESSMENT: This is an unfortunate 68-year-old male with history of chronic respiratory failure, developmental delay, encephalopathy, seizure disorder, and hypertension admitted with complaints of sepsis from urinary tract infection, pneumonia, cannot rule wound infection. PLAN: 1. Continue ventilatory support. 2. Respiratory treatments. 3. Broad spectrum IV antibiotic therapy. 4. Follow up pending cultures. 5. Cardiology, Pulmonary, Infectious Disease, and wound care consultations will be obtained. 6. Continue the patient on G-tube feeds. 7. We will hydrate aggressively. Amadeo Pleitez M.D. DR: SHALOM JOB#: [id number] CC:
[2019-08-19] MEDS ORDERED: Atenolol 25mg tab GT SCH (09:00)
[2019-08-19] MEDS ORDERED: Docusate 100mg cap ORAL SCH (09:00)
--- NOTE | 2019-08-19 10:30 | Consultation ---
DATE OF CONSULTATION: 08/18/2019 PULMONARY CONSULTATION CONSULTING PHYSICIAN: Cody Bran M.D. REASON FOR CONSULTATION: Respiratory failure, ventilatory management. HISTORY OF PRESENT ILLNESS: This is a 68-year-old male with noted fever, the patient with multiple comorbidities. The patient has been ventilator dependent. The patient was seen and evaluated and now being admitted and I was called to manage the ventilator. PAST MEDICAL HISTORY: Notable for SVT, hyperlipidemia, chronic kidney disease, diabetes, reflux disease, tracheostomy, ventilator dependent. SOCIAL HISTORY: Resides at [facility] and is chronically bed and vent bound PHYSICAL EXAMINATION: GENERAL: An ill-appearing male. VITAL SIGNS: T-max was 102, blood pressure 142/102, respiratory rate noted HEENT: Negative. NECK: Supple. Tracheostomy is in midline. Carotids 2+. EXTREMITIES: No edema. NEUROLOGICAL: poor LOC CARDIOPULMONARY: Coarse breath sounds and moderate air entry; RRR without MRG LABORATORY DATA: Reviewed. hematocrit 25, platelets noted. BNP 2490. Arterial blood gases, 7.57/24/ IMPRESSION: 1. Respiratory failure, ventilator dependent. 2. Probable pneumonia. 3. anemia, possible GI bleed. 4. chronic encephalopathy. RECOMMENDATIONS: Empiric antibiotics. Ventilator support. Monitor secretions and support. Monitor clinically and recommend; feeds as able Cody Bran M.D. DR: MARIE JOB#: [id number] CC: HARSHA
[2019-08-19] MEDS: Atenolol 25mg tab GT SCH ×2 (10:35→17:35)
[2019-08-19] MEDS: Sennosides 8.6mg tab GT SCH (10:36)
[2019-08-19] MEDS: Heparin 5000 units/ml inj SUBQ SCH ×2 (10:44→21:00)
--- NOTE | 2019-08-19 11:14 | NUR ---
RD ASSESSMENT & RECOMMENDATIONS SEE CARE ACTIVITY FOR COMPLETE ASSESSMENT DAILY ESTIMATED NEEDS: Needs based on Critical care, wound/ 63.4kg abw 25-30 kcals/kg 3737-6271 total kcals 1.5-2 g protein/kg 95-127 g total protein 25-30 mL/kg 9720-9553 total fluid mLs NUTRITION DIAGNOSIS: (1) Swallowing difficulty R/T respiratory status as evidenced by pt trach-vent dep, on GT feeding. (2) Increased kcal/pro needs R/T wound healing as evidenced by pt admitted w/ advanced wounds, pending eval CURRENT TF:Glucerna 1.5 @ 30ml/hr x 22 hrs ENTERAL NUTRITION RECOMMENDATIONS: Glucerna 1.5 @ 55ml/hr x 22 hrs to provide 1210ml, 1815kcal, 100g prot, 918ml free water * Increase goal rate to 55ml/hr x 22 hrs * Hold 1 hour before and after Synthroid administration * HOB over 30 degrees/ water flush per MD ADDITIONAL RECOMMENDATIONS: * Per SNF: HT=64" BC=530kqa (as of 07/30/19) * Wound healing: add Vit C 500mg BID add Dong 1pkt BID (mix w/ 4oz water) * Monitor lytes, replete as needed * Add NISS: h/o DM, on TF
[2019-08-19 12:00] VITALS: BP 102/55
--- NOTE | 2019-08-19 13:17 | Pulmonology Progress Note ---
Assessment/Plan Assessment/Plan Pulmonary Progress Note HPI: Patient is a 68-year-old male admitted with fever, possible sepsis, the patient with multiple comorbidities. The patient is chronically ventilator dependent. Stable overnight, on IV antibiotics PAST MEDICAL HISTORY: Previous CVA, seizure history, COPD SVT, hyperlipidemia, chronic kidney disease, diabetes, reflux disease, chronic tracheostomy, ventilator dependent. SOCIAL HISTORY: Resides at [facility]. PHYSICAL EXAMINATION: GENERAL: Chronically ill-appearing male, wasted, contracted VITAL SIGNS NOTED HEENT: Moist mm NECK: Supple. Tracheostomy is in midline. No masses Chest: Occasional rhonchi Heart: HS1, HS2 normal, RRR EXTREMITIES: No edema. NEUROLOGICAL: Generally weak, no response to command. LABORATORY DATA: Reviewed CXR: Chronic left retrocardiac infiltrate IMPRESSION: 1. Chronicespiratory failure, ventilator dependent. 2. Probable pneumonia. 3. Anemia, possible GI bleed. 4. AMS due to chronic encephalopathy, previous CVA 5. Seizure history 6. COPD RECOMMENDATIONS: Empiric antibiotics. Ventilator support. Adjust FIO2. Monitor secretions, Respiratory care. Monitor clinically. [employer] Medications. Subjective ROS Limited/Unobtainable: No Allergies: Coded Allergies: No Known Allergies (Unverified , 12/13/16) Objective Last 24 Hour Vital Signs Date Time Temp Pulse Resp B/P (MAP) Pulse Ox O2 Delivery O2 Flow Rate FiO2 08/19/19 12:00 98.8 85 18 102/55 (71) 100 08/19/19 10:35 83 100/52 08/19/19 08:36 83 27 28 08/19/19 08:00 99.3 84 16 100/52 (68) 100 08/19/19 07:00 81 15 28 08/19/19 05:25 100.0 08/19/19 05:22 102 20 28 08/19/19 04:00 110 08/19/19 04:00 28 08/19/19 04:00 102.1 115 16 94/46 (62) 100 08/19/19 04:00 Mechanical Ventilator 08/19/19 02:33 96 19 28 08/19/19 01:08 90 21 28 08/19/19 00:00 Mechanical Ventilator 08/19/19 00:00 Mechanical Ventilator 08/19/19 00:00 28 08/19/19 00:00 99.7 85 17 95/55 (68) 100 08/18/19 23:36 86 08/18/19 22:39 89 18 28 08/18/19 20:32 92 20 28 08/18/19 19:40 93 08/18/19 18:56 102.0 102 16 100/42 (61) 100 08/18/19 18:38 102 22 28 08/18/19 18:30 99.1 96 18 83/54 100 Mechanical Ventilator 28 08/18/19 18:24 99.1 96 18 83/54 100 Mechanical Ventilator 28 08/18/19 17:46 28 08/18/19 16:35 89 21 35 08/18/19 16:00 99.1 89 14 83/56 98 Mechanical Ventilator 35 08/18/19 15:37 72 16 Mechanical Ventilator 08/18/19 14:30 86 14 35 08/18/19 14:11 98.4 72 16 70/45 (53) 98 Mechanical Ventilator Intake and Output 08/18/19 08/19/19 19:00 07:00 Intake Total 200 ml Output Total 200 ml Balance 0 ml Intake Free Water 200 ml Output Urine Total 200 ml Microbiology Date/Time Source Procedure Growth Status 08/18/19 15:07 Nasal Nares - Final Complete 08/18/19 15:07 Nasal Nares - Final Complete 08/18/19 15:00 Urine,Clean Catch Urine Culture - Preliminary NO GROWTH Resulted 08/18/19 18:00 Rectum Received Laboratory Tests 08/18/19 15:00: Urine Color Yellow, Urine Appearance Slightly cloudy, Urine pH 7, Urine Specific [place] 1.005, Urine Protein 3+H, Urine Glucose (UA) Negative, Urine Ketones Negative, Urine Blood 4+H, Urine Nitrite Negative, Urine Bilirubin Negative, Urine Urobilinogen Normal, Urine Leukocyte Esterase 3+H, Urine RBC 10- 15H, Urine WBC 20-30H, Urine Squamous Epithelial Cells Occasional, Urine Bacteria Few 08/18/19 15:07: White Blood Count 18.6H, Red Blood Count 3.01L, Hemoglobin 8.5L, Hematocrit 24.9L, Mean Corpuscular Volume 83, Mean Corpuscular Hemoglobin 28.2, Mean Corpuscular Hemoglobin Concent 34.1, Red Cell Distribution Width 13.5, Platelet Count 261, Mean Platelet Volume 5.8L, Neutrophils (%) (Auto) , Lymphocytes (%) ( Auto) , Monocytes (%) (Auto) , Eosinophils (%) (Auto) , Basophils (%) (Auto) , Differential Total Cells Counted 100, Neutrophils % (Manual) 91H, Lymphocytes % (Manual) 5L, Monocytes % (Manual) 1, Eosinophils % (Manual) 1, Basophils % ( Manual) 0, Band Neutrophils 2, Platelet Estimate Adequate, Platelet Morphology Normal, Red Blood Cell Morphology Normal, Sodium Level 130L, Potassium Level 4.7 , Chloride Level 93L, Carbon Dioxide Level 24, Anion Gap 13, Blood Urea Nitrogen 42H, Creatinine 1.8H, Estimat Glomerular Filtration Rate 37.9, Glucose Level 120H, Lactic Acid Level 1.60, Calcium Level 8.4L, Total Bilirubin 0.4, Aspartate Amino Transf (AST/SGOT) 26, Alanine Aminotransferase (ALT/SGPT) 20, Alkaline Phosphatase 73, Total Creatine Kinase 88, Creatine Kinase MB 0.6, Creatine Kinase MB Relative Index 0.6, Troponin I 0.000, Pro-B-Type Natriuretic Peptide 2490H, Total Protein 7.5, Albumin 2.0L, Globulin 5.5, Albumin/Globulin Ratio 0.4L, Lipase 173 08/18/19 17:15: Arterial Blood pH 7.576*H, Arterial Blood Partial Pressure CO2 24.6*L, Arterial Blood Partial Pressure O2 180.3H, Arterial Blood HCO3 22.3, Arterial Blood Oxygen Saturation 99.2, Arterial Blood Base Excess 1.1, Karson Test Positive 08/19/19 04:45: White Blood Count 17.9H, Red Blood Count 2.84L, Hemoglobin 7.9L, Hematocrit 23.6L, Mean Corpuscular Volume 83, Mean Corpuscular Hemoglobin 27.7, Mean Corpuscular Hemoglobin Concent 33.3, Red Cell Distribution Width 13.3, Platelet Count 254, Mean Platelet Volume 5.6L, Neutrophils (%) (Auto) , Lymphocytes (%) ( Auto) , Monocytes (%) (Auto) , Eosinophils (%) (Auto) , Basophils (%) (Auto) , Differential Total Cells Counted 100, Neutrophils % (Manual) 94H, Lymphocytes % (Manual) 2L, Monocytes % (Manual) 4, Eosinophils % (Manual) 0, Basophils % ( Manual) 0, Band Neutrophils 0, Platelet Estimate Adequate, Platelet Morphology Normal, Sodium Level 132L, Potassium Level 4.0, Chloride Level 97L, Carbon Dioxide Level 23, Anion Gap 12, Blood Urea Nitrogen 39H, Creatinine 1.7H, Estimat Glomerular Filtration Rate 40.5, Glucose Level 112H, Calcium Level 8.2L , Total Bilirubin 0.5, Aspartate Amino Transf (AST/SGOT) 29, Alanine Aminotransferase (ALT/SGPT) 23, Alkaline Phosphatase 68, Total Protein 6.8, Albumin 1.7L, Globulin 5.1, Albumin/Globulin Ratio 0.3L, Random Vancomycin Level 31.3 Current Medications Medications (Trade) Dose Ordered Sig/Dolly Route PRN Reason Start Time Stop Time Status Last Admin Dose Admin Acetaminophen (Tylenol) 650 mg Q4H PRN ORAL Mild Pain/Temp > 100.5 08/18/19 20:00 09/17/19 19:59 08/19/19 04:55 Albuterol Sulfate (Proventil) 2.5 mg Q6H PRN HHN Shortness of Breath 08/18/19 20:00 08/23/19 19:59 Atenolol (Tenormin) 12.5 mg BID GT 08/19/19 09:00 09/18/19 08:59 08/19/19 10:35 Barium Sulfate (Readi-Cat 2) 450 ml NOW PRN ORAL Radiology Procedure 08/19/19 07:45 08/21/19 07:39 Chlorhexidine Gluconate (Leesa-Hex 2%) 1 applic DAILY@2000 TOPIC 08/19/19 20:00 09/18/19 19:59 Docusate Sodium (Colace) 100 mg DAILY ORAL 08/19/19 09:00 09/18/19 08:59 08/19/19 10:50 Famotidine (Pepcid) 20 mg TWICE A DAY GT 08/19/19 09:00 09/18/19 08:59 08/19/19 10:51 Heparin Sodium (Porcine) (Heparin 5000 units/ml) 5,000 units EVERY 12 HOURS SUBQ 08/18/19 21:00 09/17/19 20:59 08/19/19 10:44 Heparin Sodium/ Sodium Chloride (Heparin 1000 units/500ml Premix) 1,000 unit ONCE PRN IV PICC LINE 08/19/19 07:30 08/21/19 07:29 Levetiracetam (Keppra) 500 mg EVERY 12 HOURS GT 08/18/19 21:00 09/17/19 20:59 08/19/19 10:35 Levothyroxine Sodium (Synthroid) 125 mcg BID GT 08/19/19 09:00 09/18/19 08:59 UNV Lidocaine HCl (Xylocaine 1% 30ml) 30 ml ONCE PRN INJ PICC LINE 08/19/19 07:30 08/21/19 07:29 Piperacillin Sod/ Tazobactam Sod 3.375 gm/Sodium Chloride 110 ml @ 27.5 mls/hr Q8H IVPB 08/19/19 02:00 08/26/19 01:59 08/19/19 10:50 Sennosides (Senokot) 17.2 mg DAILY GT 08/19/19 09:00 09/18/19 08:59 08/19/19 10:36 Sodium Chloride 1,000 ml @ 100 mls/hr Q10H IV 08/18/19 20:00 09/17/19 19:59 08/18/19 21:49 Vancomycin HCl (Vanco rx to dose) 1 ea DAILY PRN MISC Per rx protocol 08/18/19 20:00 09/17/19 19:59 Kyaw Boyle MD Aug 19, 2019 13:17
--- NOTE | 2019-08-19 13:39 | Consultation ---
History of Present Illness General Date patient seen: Aug 19, 2019 Chief Complaint: Fever Present Illness HPI This is a 68-year-old male with multiple medical comorbidities history of tracheostomy vent dependent G-tube anoxic ischemic encephalopathy who is nonverbal at baseline currently presented from nursing facility with fever, leukocytosis, abnormal lab sepsis admitted for further care and management. Surgery called to evaluate and assist with care. Patient seen, patient evaluated, chart reviewed. Patient unable provide meaningful history. Labs and imaging reviewed. Allergies: Coded Allergies: No Known Allergies (Unverified , 12/13/16) Medication History Scheduled Arginine/Glutamine/Calcium Hmb (Dong Packet), 1 EACH GT BID, (Reported) Ascorbic Acid* (Vitamin C*), 250 MG GT DAILY, (Reported) Atenolol* (Tenormin*), 12.5 MG GT BID, (Reported) Cranberry Extract (Cranberry), 425 MG GT BID, (Reported) Docusate Sodium* (Colace*), 100 MG GT DAILY, (Reported) Famotidine* (Pepcid 20mg tablet*), 20 MG GT TWICE A DAY, (Reported) Levetiracetam (Keppra), 500 MG GT EVERY 12 HOURS, (Reported) Levothyroxine Sodium* (Levothyroxine Sodium*), 125 MCG GT BID, (Reported) Multivitamin Liquid* (Multi-Delyn*), 15 ML GT DAILY, (Reported) Sennosides (Senokot), 17.2 MG GT DAILY, (Reported) Scheduled PRN Acetaminophen* (Acetaminophen*), 640 MG GT Q4H PRN for Mild Pain/Temp > 100.5, ( Reported) Albuterol Sulfate* (Albuterol Sulfate Hhn*), 3 ML INH Q6HR PRN for Shortness of Breath, (Reported) Discontinued Medications Ascorbic Acid* (Vitamin C*), 500 MG ORAL DAILY, (Reported) Discontinued Reason: MD discontinued med Captopril (Captopril), 12.5 MG GT, (Reported) Discontinued Reason: MD discontinued med Ertapenem (Invanz), 1 GM IV BOLUS DAILY Discontinued Reason: MD discontinued med Levetiracetam (Keppra), 1,000 MG ORAL DAILY, (Reported) Discontinued Reason: MD discontinued med Levothyroxine Sodium* (Levothyroxine Sodium*), 150 MCG GT DAILY, (Reported) Discontinued Reason: MD discontinued med Lorazepam* (Ativan*), 1 MG ORAL Q4HR, (Reported) Discontinued Reason: MD discontinued med Magnesium Hydroxide* (Milk Of Magnesia*), 30 ML ORAL DAILY, (Reported) Discontinued Reason: MD discontinued med Magnesium Hydroxide* (Milk Of Magnesia*), 30 ML GT, (Reported) Discontinued Reason: MD discontinued med Meropenem (Meropenem), 1 GM IV Q8HR Discontinued Reason: Therapy completed Pantoprazole* (Protonix*), 40 MG GT DAILY, (Reported) Discontinued Reason: MD discontinued med Prazosin Hcl* (Minipress*), 4 MG PO BEDTIME, (Reported) Discontinued Reason: MD discontinued med Protein Supplement (Promod), 946 ML PO, (Reported) Discontinued Reason: MD discontinued med Protein Supplement (Promod), 30 ML GT DAILY, (Reported) Discontinued Reason: MD discontinued med Zinc Gluconate (Zinc), 220 MG GT BID, (Reported) Discontinued Reason: MD discontinued med Patient History Limited by: medical condition History Provided By: Medical Record, PMD Healthcare decision maker Resuscitation status Full Code Advanced Directive on File Past Medical/Surgical History Past Medical/Surgical History: (1) Chronic respiratory failure (2) Vegetative state (3) Feeding by G-tube (4) Severe anoxic-ischemic encephalopathy (5) Seizure disorder as sequela of cerebrovascular accident (6) Low grade fever (7) MDRO (multiple drug resistant organisms) resistance (8) Fever (9) Tracheostomy in place (10) Sepsis Review of Systems ROS Narrative unable to obtain given baseline medical condition Physical Exam General Appearance: no apparent distress Lines, tubes and drains: peripheral Neck: trach Respiratory/Chest: on vent Cardiovascular/Chest: normal peripheral pulses, normal rate Abdomen: soft, no organomegaly, no mass Extremities: normal inspection Skin Exam: warm/dry Neurologic: other Last 24 Hour Vital Signs Date Time Temp Pulse Resp B/P (MAP) Pulse Ox O2 Delivery O2 Flow Rate FiO2 08/19/19 12:00 98.8 85 18 102/55 (71) 100 08/19/19 10:35 83 100/52 08/19/19 08:36 83 27 28 08/19/19 08:00 99.3 84 16 100/52 (68) 100 08/19/19 07:00 81 15 28 08/19/19 05:25 100.0 08/19/19 05:22 102 20 28 08/19/19 04:00 110 08/19/19 04:00 28 08/19/19 04:00 102.1 115 16 94/46 (62) 100 08/19/19 04:00 Mechanical Ventilator 08/19/19 02:33 96 19 28 08/19/19 01:08 90 21 28 08/19/19 00:00 Mechanical Ventilator 08/19/19 00:00 Mechanical Ventilator 08/19/19 00:00 28 08/19/19 00:00 99.7 85 17 95/55 (68) 100 08/18/19 23:36 86 08/18/19 22:39 89 18 28 08/18/19 20:32 92 20 28 08/18/19 19:40 93 08/18/19 18:56 102.0 102 16 100/42 (61) 100 08/18/19 18:38 102 22 28 08/18/19 18:30 99.1 96 18 83/54 100 Mechanical Ventilator 28 08/18/19 18:24 99.1 96 18 83/54 100 Mechanical Ventilator 28 08/18/19 17:46 28 08/18/19 16:35 89 21 35 08/18/19 16:00 99.1 89 14 83/56 98 Mechanical Ventilator 35 08/18/19 15:37 72 16 Mechanical Ventilator 08/18/19 14:30 86 14 35 08/18/19 14:11 98.4 72 16 70/45 (53) 98 Mechanical Ventilator Intake and Output 08/18/19 08/19/19 19:00 07:00 Intake Total 200 ml Output Total 200 ml Balance 0 ml Intake Free Water 200 ml Output Urine Total 200 ml Laboratory Tests Test 08/18/19 15:00 08/18/19 15:07 08/18/19 17:15 08/19/19 04:45 Urine Color Yellow Urine Appearance Slightly cloudy Urine pH 7 (4.5-8.0) Urine Specific [place] 1.005 (1.005-1.035) Urine Protein 3+ (NEGATIVE) H Urine Glucose (UA) Negative (NEGATIVE) Urine Ketones Negative (NEGATIVE) Urine Blood 4+ (NEGATIVE) H Urine Nitrite Negative (NEGATIVE) Urine Bilirubin Negative (NEGATIVE) Urine Urobilinogen Normal MG/DL (0.0-1.0) Urine Leukocyte Esterase 3+ (NEGATIVE) H Urine RBC 10-15 /HPF (0 - 0) H Urine WBC 20-30 /HPF (0 - 0) H Urine Squamous Epithelial Cells Occasional /LPF Urine Bacteria Few /HPF (NONE) White Blood Count 18.6 K/UL (4.8-10.8) H 17.9 K/UL (4.8-10.8) H Red Blood Count 3.01 M/UL (4.70-6.10) L 2.84 M/UL (4.70-6.10) L Hemoglobin 8.5 G/DL (14.2-18.0) L 7.9 G/DL (14.2-18.0) L Hematocrit 24.9 % (42.0-52.0) L 23.6 % (42.0-52.0) L Mean Corpuscular Volume 83 FL (80-99) 83 FL (80-99) Mean Corpuscular Hemoglobin 28.2 PG (27.0-31.0) 27.7 PG (27.0-31.0) Mean Corpuscular Hemoglobin Concent 34.1 G/DL (32.0-36.0) 33.3 G/DL (32.0-36.0) Red Cell Distribution Width 13.5 % (11.6-14.8) 13.3 % (11.6-14.8) Platelet Count 261 K/UL (150-450) 254 K/UL (150-450) Mean Platelet Volume 5.8 FL (6.5-10.1) L 5.6 FL (6.5-10.1) L Neutrophils (%) (Auto) % (45.0-75.0) % (45.0-75.0) Lymphocytes (%) (Auto) % (20.0-45.0) % (20.0-45.0) Monocytes (%) (Auto) % (1.0-10.0) % (1.0-10.0) Eosinophils (%) (Auto) % (0.0-3.0) % (0.0-3.0) Basophils (%) (Auto) % (0.0-2.0) % (0.0-2.0) Differential Total Cells Counted 100 100 Neutrophils % (Manual) 91 % (45-75) H 94 % (45-75) H Lymphocytes % (Manual) 5 % (20-45) L 2 % (20-45) L Monocytes % (Manual) 1 % (1-10) 4 % (1-10) Eosinophils % (Manual) 1 % (0-3) 0 % (0-3) Basophils % (Manual) 0 % (0-2) 0 % (0-2) Band Neutrophils 2 % (0-8) 0 % (0-8) Platelet Estimate Adequate Adequate Platelet Morphology Normal Normal Red Blood Cell Morphology Normal Sodium Level 130 MMOL/L (136-145) L 132 MMOL/L (136-145) L Potassium Level 4.7 MMOL/L (3.5-5.1) 4.0 MMOL/L (3.5-5.1) Chloride Level 93 MMOL/L (98-107) L 97 MMOL/L (98-107) L Carbon Dioxide Level 24 MMOL/L (21-32) 23 MMOL/L (21-32) Anion Gap 13 mmol/L (5-15) 12 mmol/L (5-15) Blood Urea Nitrogen 42 mg/dL (7-18) H 39 mg/dL (7-18) H Creatinine 1.8 MG/DL (0.55-1.30) H 1.7 MG/DL (0.55-1.30) H Estimat Glomerular Filtration Rate 37.9 mL/min (>60) 40.5 mL/min (>60) Glucose Level 120 MG/DL (74-106) H 112 MG/DL (74-106) H Lactic Acid Level 1.60 mmol/L (0.4-2.0) Calcium Level 8.4 MG/DL (8.5-10.1) L 8.2 MG/DL (8.5-10.1) L Total Bilirubin 0.4 MG/DL (0.2-1.0) 0.5 MG/DL (0.2-1.0) Aspartate Amino Transf (AST/SGOT) 26 U/L (15-37) 29 U/L (15-37) Alanine Aminotransferase (ALT/SGPT) 20 U/L (12-78) 23 U/L (12-78) Alkaline Phosphatase 73 U/L (46-116) 68 U/L (46-116) Total Creatine Kinase 88 U/L (26-308) Creatine Kinase MB 0.6 NG/ML (0.0-3.6) Creatine Kinase MB Relative Index 0.6 Troponin I 0.000 ng/mL (0.000-0.056) Pro-B-Type Natriuretic Peptide 2490 pg/mL (0-125) H Total Protein 7.5 G/DL (6.4-8.2) 6.8 G/DL (6.4-8.2) Albumin 2.0 G/DL (3.4-5.0) L 1.7 G/DL (3.4-5.0) L Globulin 5.5 g/dL 5.1 g/dL Albumin/Globulin Ratio 0.4 (1.0-2.7) L 0.3 (1.0-2.7) L Lipase 173 U/L (73-393) Arterial Blood pH 7.576 (7.350-7.450) Arterial Blood Partial Pressure CO2 24.6 mmHg (35.0-45.0) *L Arterial Blood Partial Pressure O2 180.3 mmHg (75.0-100.0) H Arterial Blood HCO3 22.3 mmol/L (22.0-26.0) Arterial Blood Oxygen Saturation 99.2 % (95-100) Arterial Blood Base Excess 1.1 (-2-2) Karson Test Positive Random Vancomycin Level 31.3 ug/mL Microbiology Date/Time Source Procedure Growth Status 08/18/19 15:07 Nasal Nares - Final Complete 08/18/19 15:07 Nasal Nares - Final Complete 08/18/19 15:00 Urine,Clean Catch Urine Culture - Preliminary NO GROWTH Resulted 08/18/19 18:00 Rectum Received Height (Feet): 5 Height (Inches): 8.00 Weight (Pounds): 159 Medications Current Medications Medications (Trade) Dose Ordered Sig/Dolly Route PRN Reason Start Time Stop Time Status Last Admin Dose Admin Acetaminophen (Tylenol) 650 mg Q4H PRN ORAL Mild Pain/Temp > 100.5 08/18/19 20:00 09/17/19 19:59 08/19/19 04:55 Albuterol Sulfate (Proventil) 2.5 mg Q6H PRN HHN Shortness of Breath 08/18/19 20:00 08/23/19 19:59 Atenolol (Tenormin) 12.5 mg BID GT 08/19/19 09:00 09/18/19 08:59 08/19/19 10:35 Barium Sulfate (Readi-Cat 2) 450 ml NOW PRN ORAL Radiology Procedure 08/19/19 07:45 08/21/19 07:39 Chlorhexidine Gluconate (Leesa-Hex 2%) 1 applic DAILY@2000 TOPIC 08/19/19 20:00 09/18/19 19:59 Docusate Sodium (Colace) 100 mg DAILY ORAL 08/19/19 09:00 09/18/19 08:59 08/19/19 10:50 Famotidine (Pepcid) 20 mg TWICE A DAY GT 08/19/19 09:00 09/18/19 08:59 08/19/19 10:51 Heparin Sodium (Porcine) (Heparin 5000 units/ml) 5,000 units EVERY 12 HOURS SUBQ 08/18/19 21:00 09/17/19 20:59 08/19/19 10:44 Heparin Sodium/ Sodium Chloride (Heparin 1000 units/500ml Premix) 1,000 unit ONCE PRN IV PICC LINE 08/19/19 07:30 08/21/19 07:29 Levetiracetam (Keppra) 500 mg EVERY 12 HOURS GT 08/18/19 21:00 09/17/19 20:59 08/19/19 10:35 Levothyroxine Sodium (Synthroid) 125 mcg BID GT 08/19/19 09:00 09/18/19 08:59 UNV Lidocaine HCl (Xylocaine 1% 30ml) 30 ml ONCE PRN INJ PICC LINE 08/19/19 07:30 08/21/19 07:29 Piperacillin Sod/ Tazobactam Sod 3.375 gm/Sodium Chloride 110 ml @ 27.5 mls/hr Q8H IVPB 08/19/19 02:00 08/26/19 01:59 08/19/19 10:50 Sennosides (Senokot) 17.2 mg DAILY GT 08/19/19 09:00 09/18/19 08:59 08/19/19 10:36 Sodium Chloride 1,000 ml @ 100 mls/hr Q10H IV 08/18/19 20:00 09/17/19 19:59 08/18/19 21:49 Vancomycin HCl (Vanco rx to dose) 1 ea DAILY PRN MISC Per rx protocol 08/18/19 20:00 09/17/19 19:59 Assessment/Plan Problem List: (1) Tracheostomy in place Assessment & Plan: A dense retrocardiac opacification demonstrated with silhouetting of the left hemidiaphragm appearing worse than on the prior occasion. This was seen to some extent on the prior occasion. Heart size is normal. Lung volumes are low. Tracheostomy is noted. Bones are osteopenic. IMPRESSION: Retrocardiac density. Consider pneumonia although the finding was present to some extent on the prior occasion indicating a part of this may be chronic. Correlate clinically. Tracheostomy ICD Codes: Z93.0 - Tracheostomy status SNOMED: 859527303 (2) Fever ICD Codes: R50.9 - Fever, unspecified SNOMED: 163610364 (3) Chronic respiratory failure ICD Codes: J96.10 - Chronic respiratory failure, unspecified whether with hypoxia or hypercapnia SNOMED: 78686041 (4) Vegetative state ICD Codes: R40.3 - Persistent vegetative state SNOMED: 12943518, 169348313 (5) Sepsis Assessment & Plan: Patient admitted with sepsis fevers, tachycardia, leukocytosis, abnormal labs, renal insufficiency. Antibiotics as per infectious disease Patient identified to have multiple wounds on admission some foul-smelling and malodorous with drainage. Wound evaluated bedside no acute active infection identified and source of sepsis unlikely from patient's wounds. Patient has chronic stage IV sacral decubitus ulcer with necrotic tissue and slough and eschar. No purulent drainage. Foul odor likely from incontinence. We will continue to follow with recommendations Orders placed Thank you for let me participate in patient's care ICD Codes: A41.9 - Sepsis, unspecified organism SNOMED: 08078284 (6) MDRO (multiple drug resistant organisms) resistance ICD Codes: Z16.35 - Resistance to multiple antimicrobial drugs SNOMED: 250645463 (7) Feeding by G-tube Assessment & Plan: DAILY ESTIMATED NEEDS: Needs based on Critical care, wound/ 63.4kg abw 25-30 kcals/kg 7685-1633 total kcals 1.5-2 g protein/kg 95-127 g total protein 25-30 mL/kg 6984-0891 total fluid mLs NUTRITION DIAGNOSIS: (1) Swallowing difficulty R/T respiratory status as evidenced by pt trach-vent dep, on GT feeding. (2) Increased kcal/pro needs R/T wound healing as evidenced by pt admitted w/ advanced wounds, pending eval CURRENT TF:Glucerna 1.5 @ 30ml/hr x 22 hrs ENTERAL NUTRITION RECOMMENDATIONS: Glucerna 1.5 @ 55ml/hr x 22 hrs to provide 1210ml, 1815kcal, 100g prot, 918ml free water * Increase goal rate to 55ml/hr x 22 hrs * Hold 1 hour before and after Synthroid administration * HOB over 30 degrees/ water flush per MD ADDITIONAL RECOMMENDATIONS: * Per SNF: HT=64" RM=539xrw (as of 07/30/19) * Wound healing: add Vit C 500mg BID add Dong 1pkt BID (mix w/ 4oz water) * Monitor lytes, replete as needed * Add NISS: h/o DM, on TF ICD Codes: Z93.1 - Gastrostomy status SNOMED: 417335881, 839181253 (8) Low grade fever ICD Codes: R50.9 - Fever, unspecified SNOMED: 656343695 (9) Severe anoxic-ischemic encephalopathy ICD Codes: G93.1 - Anoxic brain damage, not elsewhere classified; I67.82 - Cerebral ischemia SNOMED: 286996990 (10) Seizure disorder as sequela of cerebrovascular accident ICD Codes: I69.398 - Other sequelae of cerebral infarction; G40.909 - Epilepsy , unspecified, not intractable, without status epilepticus SNOMED: 362184252739746 (11) Stage 4 skin ulcer of sacral region ICD Codes: L98.429 - Non-pressure chronic ulcer of back with unspecified severity SNOMED: 11409798, 002441010 Evens Kaur Aug 19, 2019 13:39
--- NOTE | 2019-08-19 14:00 | NUR ---
NURSE NOTES: PLACED A TELEPHONE CALL TO DR PAUL AND MADE AWARE AND NOTIFIED REGARDING VASCULAR TEAM CAME TO ASSESSED THE PT AND UNABLE TO INSERTED PICC-LINE .PT ARMS VERY CONTRACTED. NO NEW ORDERS NOTED AT THIS TIME. WILL CONT TO MONITOR.
--- NOTE | 2019-08-19 14:21 | NUR ---
NURSE NOTES:WOUND CARE NOTES:Pt presented on admission with contractures and multiple pressure injuries. Full thickness pressure injury occipital. Base of wound is 40% necrotic with surrounding scattered slough and erythema. Small amt serous exudate. No odor noted. Edges are macerated and dark with surrounding erythema and denuded skin.(L)5.1cm x (W)8.2cm. Skin folds of neck very moist but no evidence of skin breakdown noted under collar of trach. Full thickness sacral pressure injury with undermined borders.(L)4.5cm x (W)4.5cm x (D)1.5cm,undermining clockwise 3-11 by 1.3cm @3o'clock. Base of wound is 75% necrotic, 25% mixed slough and erythema. Wound is malodorous. Bone is visible at base of wound.Small amt seropurulent exudate noted. Non-blanching erythema without induration periwound. Resolving pressure injury lateral R tibia . scattered dry eschar with surrounding pink epithelial noted .Periwound without erythema or induration(L)5cm x (W)0.9cm. Distal aspect of R foot is dusky. R 1st metatarsal is 75% necrotic,25% moist erythema.Oozing small amt haemopurulent exudate.Wound is malodorous. Borders are macerated(L)5.3cm x (W)4cm. R 2nd ,3rd,4th and 5th metatarsals noted to have dry eschar dorsally. Stable dry eschar dorsal R foot (L)0.4cm x (W)2.6cm. scattered dry scabs noted to [place] upper L thigh. No erythema noted at site. Lateral L foot extending to L 5th metatarsal head including plantar aspect is 90% necrotic, with areas of fluctuance within base.5% surrounding moist erythema.Edges adherent to base of base of wound. Mild odor noted (L)4cm x (W)14.5cm. Resolving pressure injury L lateral malleolus. Moist erythema with surrounding dry pink epithelial noted.(L)1cm x (W)0.8cm. Periwound without erythema or fluctuance. Both heels are boggy with scattered areas of hyperpigmentation from previous wounds. Tx.Plan: Cleanse wound Occipital with Dakin's 0.125% carlos a. Apply Dakin's Moistened Gauze. Cover with Optifoam drsg Daily and prn. Cleanse Sacral wound with Dakin's 0.125% carlos a.Loosely pack with Dakin's moistened kerlix. Apply Moisture Barrier Paste periwound. Cover with Optifoam drsg Daily and prn. Cleanse R 1st metatarsal with Dakin's 0.125% carlos a. Apply Dakin's moistened 2x2 Gauze. Apply Cavilon Skin Barrier periwound.Cover with ABD. Wrap with Kerlix Daily and prn. Swab Dorsal Aspects of R 2nd,3rd,4th and 5th metatarsals with Betadine Daily and prn. Cleanse wound lateral L foot with Dakin's 0.125% carlos a. Apply Dakin's moist gauze. Apply Cavilon Periwound. Cover with ABD pad and wrap with Kerlix Daily and prn. Apply Cavilon Skin Barrier to both heels. Cover each heel with Optifoam drsg. Change every 7 days and prn. Cover lateral R tibia with Optifoam drsg. Change every 7 days and prn. Air fluidized mattress. Reposition at least every 2hours or as tolerated. Place pillow between knees . Place pillow behind knees to off-load heels. Position head to side to relieve pressure off Occipital wound. Kerlix Daily and prn.
[2019-08-19 16:00] VITALS: BP 92/56
--- NOTE | 2019-08-19 16:31 | NUR ---
*-* INSURANCE *-* ALL AVAILABLE CLINICALS HAVE BEEN FAXED TO: [employer] ph# [phone] fax#[phone] reviews/clinicals & Chelsie Couch ph#[phone] fax# [phone] reviews/clinicals
--- NOTE | 2019-08-19 16:36 | Diagnostic Imaging Report ---
Indication: Headache Technique: Contiguous 5 mm thick transaxial imaging of the head obtained in a Siemens Sensation [address] scanner. Soft tissue and bone windows generated. Automatic Exposure Control was utilized. Total Dose length Product (DLP): 1138.9mGycm CT Dose Index Volume (CTDIvol): 53.4 mGy Comparison: none Findings: There is marked prominence of the ventricles, basal cisterns, and cerebral sulci consistent with atrophy. Moderate to severe nonspecific, white matter hypoattenuation is noted throughout the brain likely due to chronic small vessel disease. There is no midline shift, edema, acute hemorrhage, mass effect, or abnormal extra-axial fluid collections. The mastoids are opacified bilaterally consistent with chronic mastoiditis. There is also opacification of the left middle ear canal. Impression: No acute intracranial bleed, mass effect or edema identified. Severe atrophy of the brain. Moderate to severe chronic small vessel disease involving white matter tracts. Chronic bilateral mastoiditis left otitis media The CT scanner at [facility] is accredited by the [employer] and the scans are performed using dose optimization techniques as appropriate to a performed exam including Automatic Exposure control.
--- NOTE | 2019-08-19 16:45 | Diagnostic Imaging Report ---
INDICATION: Abdominal pain TECHNIQUE: Continuous helical transaxial imaging of the abdomen and pelvis was obtained from the lung bases to the pubic symphysis. No intravenous contrast was administered. Coronal 2-D reformats were also obtained. Automatic Exposure Control was utilized. Total Dose length Product (DLP): [address] Dose Index Volume (CTDIvol): 8.8 mGy Comparison: none FINDINGS: Lungs: Trace basilar pleural effusions and atelectasis demonstrated. Some subtle pleural calcifications may be present in the anterior right lung base.. There is dense calcification of part of the left lower lobe. This could be dystrophic calcium. This could be previously aspirated barium. Liver: There is excessive artifact in the epigastric region limiting evaluation of the liver and other structures in the epigastric region. No obvious abnormalities of the liver seen. Gallbladder/biliary system: Again, evaluation is limited but no obvious abnormality seen. No biliary ductal dilatation is appreciated.. Spleen: Unremarkable Pancreas: Grossly unremarkable. Kidneys/Bladder: 5 x 7 mm right UPJ stone demonstrated with associated mild right hydronephrosis atherosclerotic disease Generalized osteopenia and degenerative changes of the spine. Contraction deformity with flexion of both hips. Gastrostomy Nonobstructive stones also demonstrated at the level of the calyces within both kidneys. There is no hydronephrosis on the left. There is also moderate degree of right perinephric stranding and enlargement of the right kidney due to the obstruction. Perinephric stranding extends to the right paracolic gutter. Urinary bladder is unremarkable.. Adrenal glands: Unremarkable Bowel: Gastrostomy tube is noted and appears to be in good position. Bowel gas pattern appears nonobstructive. Appendix is seen and appears normal. Diverticula noted in the sigmoid region. Aorta/IVC: Moderate calcification of the aorta and iliac arteries demonstrated consistent with atherosclerotic vascular disease. Peritoneum: There is no free fluid. Bones: Diffuse generalized osteopenia noted. There is narrowing of intervertebral discs and accompanying endplate osteophyte formation. Hypertrophied facet joints also demonstrated.. The patient is contracted. There is flexion deformities of both hips. IMPRESSION: 5 x 7 mm right UVJ stone with associated mild right hydronephrosis, enlargement of the kidney and perinephric stranding. Multiple nonobstructive stones within both kidneys. Trace basilar pleural effusions. Dense collapse left lower lobe. Query previous aspirated barium. Other incidental findings as above Note: Evaluation of solid organs is limited on non contrast imaging. The CT scanner at [facility] is accredited by the [employer] and the scans are performed using dose optimization techniques as appropriate to a performed exam including Automatic Exposure control.
--- NOTE | 2019-08-19 17:05 | Diagnostic Imaging Report ---
Indication: Ulceration/wound lateral aspect of the right foot at the hallux. Foot pain. Contraction of the left foot. Technique: Continuous helical transaxial imaging of both feet performed.. No intravenous or oral contrast was administered. Coronal 2-D reformats were also obtained. Total Dose length Product (DLP): 112.[address] Dose Index Volume (CTDIvol): 3.3 mGy Findings: Left foot: Generalized osteopenia demonstrated. No obvious periostitis or erosion or soft tissue gas identified. Large field of view precludes more detailed assessment in any one area of the midfoot, forefoot or hindfoot. Right foot: There is an obvious focus of destruction of the interphalangeal joint of the hallux. Adjacent focus of skin ulceration and some soft tissue air noted. The findings are suspicious for septic arthropathy and osteomyelitis. Please correlate clinically. Trauma may be superimposed on this. IMPRESSION: Suspected osteomyelitis involving the area of the right first interphalangeal joint. The CT scanner at [facility] is accredited by the [employer] and the scans are performed using protocols designed to limit radiation exposure to as low as reasonably achievable to attain images of sufficient resolution adequate for diagnostic evaluation.
[2019-08-19] MEDS: Acetaminophen 650mg/20.3ml GT PRN (17:38)
[2019-08-19] MEDS: Ascorbic Acid 500mg tab GT SCH (17:46)
--- NOTE | 2019-08-19 19:08 | NUR ---
HAND-OFF: Report given to .JENNIFER SOW.
--- NOTE | 2019-08-19 19:15 | NUR ---
NURSE NOTES: Received pt from JUANJOSE Posey. pt is observed in bed, obtunded, no s/sx of pain noted at this time. trach to vent settings are as follows: Portex: 7, AC: 12, TV: 600, FiO2: 28%, PEEP: 5. tolerating well, no s/sx of respiratory distress noted at this time. G-tube site is patent and intact, with Glucerna 1.5 running at 30 cc/hr. HOB elevated to 30 degrees, no residual noted. condom catheter noted, draining yellow urine. skin alterations noted. JARRET 20 g IV site noted, difficult to flush. RH 22g IV site is patent and intact, currenlty running Zosyn at prescribed rate. bed in lowest position and locked, padded siderails up X3, call light within reach. will continue to monitor.
[2019-08-19 20:00] VITALS: BP 91/43
[2019-08-19] MEDS ORDERED: Dyna-Hex 2% Top Sol 2oz TOPIC SCH (20:00)
[2019-08-19] MEDS: Dyna-Hex 2% Top Sol 2oz TOPIC SCH (20:17)
--- NOTE | 2019-08-19 21:03 | NUR ---
CASE MANAGEMENT: REVIEW 68 YEAR OLD MALE BIBA FROM [facility] CC: FEVER . TRACH / VENT DEPENDENT / G-TUBE . VEGETATIVE STATE SI: SEPSIS . T 102.0 HR 102 RR 16 BP 100/42 SAT 100% MECH VENT FIO2 28 WBC 18.6 H/H 8.5/24.9 NA 130 BUN 42 CR 1.8 IS: VANCO IV X1 ZOSYN IV X1 NS IVF BOLUS X1 PATIENT ADMITTED TO STEP DOWN UNIT 08/18/2019 DCP: PATIENT IS FROM [facility]
--- NOTE | 2019-08-19 22:30 | Progress Note ---
DATE: 08/19/2019 CARDIOLOGY PROGRESS NOTE SUBJECTIVE: Blood pressure parameters remained tenuous. Fever spike of 102.1 early this morning. OBJECTIVE: VITAL SIGNS: Blood pressure 94/46, presently 102/55, heart rate 85, respiratory rate 18. Tracheostomy with ventilator connection. LUNGS: Bilateral breath sounds. HEART: Regular rhythm and rate. Normal S1, S2. ABDOMEN: Soft. EXTREMITIES: No edema. LABORATORY DATA: White count 17.9, hemoglobin 7.9. BUN 39, creatinine 1.7. Albumin 1.7. IMPRESSION: 1. Shock. 2. Sepsis. 3. Hypovolemia. 4. Acute on chronic kidney injury. 5. Severe protein-calorie malnutrition. 6. Ventilator-dependent respiratory failure. 7. Leukocytosis. 8. Worsening anemia. 9. Osteomyelitis. PLAN: 1. Antimicrobials. 2. Surgical input. 3. Ventilator support. 4. Volume resuscitation. 5. Consider packed red blood cell transfusion for further drop in blood count. 6. Volume support not adequate, may need pressors. Kayw Gonzalez M.D. DR: SHANTELLE JOB#: [id number] CC:
[2019-08-20] VITALS: BP 103/51
[2019-08-20] MEDS: Piperacillin/Tazobactam 3.375 GM in NS 110 ML IVPB SCH ×3 (02:38→22:22)
[2019-08-20 04:00] VITALS: BP 106/53
[2019-08-20 05:23] LABS: HEMATOCRIT 19.5 % (42.0-52.0); MEAN CORPUSCULAR VOLUME 85 FL (80-99); PLATELET COUNT 284 K/UL (150-450); RED BLOOD COUNT 2.31 M/UL (4.70-6.10); RED CELL DISTRIBUTION WIDTH 13.9 % (11.6-14.8)
[2019-08-20 05:27] LABS: INR 1.2 (0.9-1.1)
[2019-08-20 05:48] LABS: HEMOGLOBIN 6.4 G/DL (14.2-18.0)
[2019-08-20] MEDS: Acetaminophen 650mg/20.3ml GT PRN ×2 (05:49→16:19)
[2019-08-20] MEDS: LEVOTHYROXINE SODIUM 250 MCG GT SCH ×2 (05:49)
[2019-08-20 05:51] LABS: ALANINE AMINOTRANSFERASE 10 U/L (12-78); ALBUMIN 1.6 G/DL (3.4-5.0); ALBUMIN/GLOBULIN RATIO 0.3 (1.0-2.7); ALKALINE PHOSPHATASE 83 U/L (46-116); ANION GAP 12 mmol/L (5-15); ASPARTATE AMINO TRANSFERASE 29 U/L (15-37); BILIRUBIN,TOTAL 0.3 MG/DL (0.2-1.0); BLOOD UREA NITROGEN 36 mg/dL (7-18); CALCIUM 8.2 MG/DL (8.5-10.1); CARBON DIOXIDE 21 MMOL/L (21-32); CHLORIDE 102 MMOL/L (98-107); CREATININE 1.6 MG/DL (0.55-1.30); POTASSIUM 4.3 MMOL/L (3.5-5.1); SODIUM 135 MMOL/L (136-145)
--- NOTE | 2019-08-20 06:37 | NUR ---
RESPIRATORY NOTE: Received pt on trach cuffed, Portex 7.0, secured with trach tie and trach guard. Pt is obtunded, on vent with current vent settings: AC 12-600ml-28%-peep 5, saturates at 100%. No SOB or resp distress noted. Alarms are set and audible, vent is plugged into the red outlet, ambu bag is at bedside. will continue to monitor.
--- NOTE | 2019-08-20 06:50 | NUR ---
NURSE NOTES: Dr. Pleitez made aware of Hgb of 6.4 and of elevated temp of 100.7. new orders received and will be carried out.
--- NOTE | 2019-08-20 07:15 | NUR ---
HAND-OFF: Report given to JUANJOSE Posey. endorsed plan of care to incoming RN. pt is in stable condition.
--- NOTE | 2019-08-20 07:15 | NUR ---
NURSE NOTES: RECEIVED BED SIDE REPORT FROM JENNIFER INSPECTOR W[employer]OPE OF PEST CONTROL SUPERVISOR. PT RECEIVED WITH HOD ELEVTED 45 DEGREE OBTUNDED TRACH TO VENT TOLERATING WELL CURRENTS VENT SETTINGS. DR PAUL CAME TO SEE THE PT AND MADE AWARE AND NOTIFIED REGARDING HGB 6.4 AND PT HAD TEMP 100.7. M.Cristino STATED THAT HE WILL ORDER BLOOD TRANSFUSION TODAY. WILL CONT TO MONITOR.
--- NOTE | 2019-08-20 07:46 | General Progress Note ---
Assessment/Plan Problem List: (1) Osteomyelitis of ankle or foot, right, acute ICD Codes: M86.171 - Other acute osteomyelitis, right ankle and foot SNOMED: 980498945 (2) Anemia ICD Codes: D64.9 - Anemia, unspecified SNOMED: 979725826 (3) Fever ICD Codes: R50.9 - Fever, unspecified SNOMED: 091479180 (4) Tracheostomy in place ICD Codes: Z93.0 - Tracheostomy status SNOMED: 917650404 (5) Chronic respiratory failure ICD Codes: J96.10 - Chronic respiratory failure, unspecified whether with hypoxia or hypercapnia SNOMED: 49007323 (6) Vegetative state ICD Codes: R40.3 - Persistent vegetative state SNOMED: 08540078, 150778073 (7) MDRO (multiple drug resistant organisms) resistance ICD Codes: Z16.35 - Resistance to multiple antimicrobial drugs SNOMED: 934591006 (8) Feeding by G-tube ICD Codes: Z93.1 - Gastrostomy status SNOMED: 744048506, 978454878 (9) Severe anoxic-ischemic encephalopathy ICD Codes: G93.1 - Anoxic brain damage, not elsewhere classified; I67.82 - Cerebral ischemia SNOMED: 089565667 (10) Seizure disorder as sequela of cerebrovascular accident ICD Codes: I69.398 - Other sequelae of cerebral infarction; G40.909 - Epilepsy , unspecified, not intractable, without status epilepticus SNOMED: 202537794097448 (11) Stage 4 skin ulcer of sacral region ICD Codes: L98.429 - Non-pressure chronic ulcer of back with unspecified severity SNOMED: 78735601, 128467948 (12) Sepsis ICD Codes: A41.9 - Sepsis, unspecified organism SNOMED: 46116141 Status: stable, not improved Assessment/Plan: cont iv abx follow up cultures vent support resp rx suctioning transfuse- d/w monitor for bleeding stool ob eval re hydro wound care eval Subjective ROS Limited/Unobtainable: No Constitutional: Reports: malaise, weakness HEENT: Reports: no symptoms Cardiovascular: Reports: no symptoms Respiratory: Reports: cough, sputum Gastrointestinal/Abdominal: Reports: difficulty swallowing Genitourinary: Reports: no symptoms Neurologic/Psychiatric: Reports: pre-existing deficit, seizure Endocrine: Reports: no symptoms Hematologic/Lymphatic: Reports: anemia Allergies: Coded Allergies: No Known Allergies (Unverified , 12/13/16) All Systems: reviewed and negative except above Subjective decreased h/h noted. no signs of bleeding. temps trending down. on the vent. poorly responsive. ct abd with mild right hydro. ct right foot with osteo. cultures noted. on iv abx Objective Last 24 Hour Vital Signs Date Time Temp Pulse Resp B/P (MAP) Pulse Ox O2 Delivery O2 Flow Rate FiO2 08/20/19 05:14 91 20 28 08/20/19 04:00 Mechanical Ventilator 08/20/19 04:00 95 08/20/19 04:00 28 08/20/19 04:00 100.7 92 22 106/53 (70) 98 08/20/19 03:30 90 19 28 08/20/19 01:30 92 18 28 08/20/19 00:00 Mechanical Ventilator 08/20/19 00:00 82 08/20/19 00:00 99.2 85 22 103/51 (68) 98 08/20/19 00:00 28 08/19/19 23:30 87 21 28 08/19/19 21:30 91 13 28 08/19/19 20:00 99.0 78 14 91/43 (59) 100 08/19/19 20:00 Mechanical Ventilator 08/19/19 20:00 84 08/19/19 20:00 28 08/19/19 19:30 90 13 28 08/19/19 18:08 99.3 08/19/19 17:35 87 89/52 08/19/19 17:28 92 13 28 08/19/19 16:00 Mechanical Ventilator 08/19/19 16:00 100.9 89 19 92/56 (68) 100 08/19/19 16:00 100 08/19/19 16:00 28 08/19/19 15:00 92 13 28 08/19/19 14:01 101 24 28 08/19/19 12:00 28 08/19/19 12:00 Mechanical Ventilator 08/19/19 12:00 88 08/19/19 12:00 98.8 85 18 102/55 (71) 100 08/19/19 11:00 93 13 28 08/19/19 10:35 83 100/52 08/19/19 08:36 83 27 28 08/19/19 08:00 Mechanical Ventilator 08/19/19 08:00 82 08/19/19 08:00 99.3 84 16 100/52 (68) 100 08/19/19 08:00 28 Intake and Output 08/19/19 08/20/19 19:00 07:00 Intake Total 1040.0 ml 1078.416 ml Output Total 800 ml 400 ml Balance 240.0 ml 678.416 ml Intake Free Water 500 ml 100 ml IV Total 510.0 ml 648.416 ml Tube Feeding 30 ml 330 ml Output Urine Total 800 ml 400 ml # Bowel Movements 1 Laboratory Tests 08/20/19 04:00: White Blood Count 17.0H, Red Blood Count 2.31L, Hemoglobin 6.4*L, Hematocrit 19.5L, Mean Corpuscular Volume 85, Mean Corpuscular Hemoglobin 27.6, Mean Corpuscular Hemoglobin Concent 32.7, Red Cell Distribution Width 13.9, Platelet Count 284, Mean Platelet Volume 5.2L, Neutrophils (%) (Auto) , Lymphocytes (%) ( Auto) , Monocytes (%) (Auto) , Eosinophils (%) (Auto) , Basophils (%) (Auto) , Neutrophils % (Manual) [Pending], Lymphocytes % (Manual) [Pending], Platelet Estimate [Pending], Platelet Morphology [Pending], Erythrocyte Sedimentation Rate [Pending], Prothrombin Time 13.1H, Prothromb Time International Ratio 1.2H , Activated Partial Thromboplast Time 41H, Sodium Level 135L, Potassium Level 4.3, Chloride Level 102, Carbon Dioxide Level 21, Anion Gap 12, Blood Urea Nitrogen 36H, Creatinine 1.6H, Estimat Glomerular Filtration Rate 43.5, Glucose Level 106, Calcium Level 8.2L, Total Bilirubin 0.3, Aspartate Amino Transf (AST/ SGOT) 29, Alanine Aminotransferase (ALT/SGPT) 10L, Alkaline Phosphatase 83, C- Reactive Protein, Quantitative [Pending], Total Protein 6.7, Albumin 1.6L, Globulin 5.1, Albumin/Globulin Ratio 0.3L, Random Vancomycin Level 19.4 Height (Feet): 5 Height (Inches): 8.00 Weight (Pounds): 159 General Appearance: WD/WN, lethargic, confused Neck: supple Cardiovascular: normal rate, regular rhythm Respiratory/Chest: chest wall non-tender, lungs clear, normal breath sounds, no respiratory distress, no accessory muscle use Abdomen: normal bowel sounds, non tender, soft, no organomegaly Edema: no edema noted Arm (L), no edema noted Arm (R), no edema noted Leg (L), no edema noted Leg (R), no edema noted Pedal (L), no edema noted Pedal (R), no edema noted Generalized Neurologic: disoriented, unresponsive, aphasia Skin: warm/dry Amadeo Pleitez MD Aug 20, 2019 07:46
[2019-08-20 08:00] VITALS: BP 96/51
--- NOTE | 2019-08-20 08:14 | Pulmonology Progress Note ---
Assessment/Plan Assessment/Plan trach vent dependent respiratory failure seizure disorder possible sepsis chronic encephalopathy PLAN vent support antibiotics feeds off load monitor labs ID follow up and recommendations impression, plan, and exam edited and reviewed in detail care discussed with RN Subjective ROS Limited/Unobtainable: Yes Allergies: Coded Allergies: No Known Allergies (Unverified , 12/13/16) Subjective care noted on vent Objective Last 24 Hour Vital Signs Date Time Temp Pulse Resp B/P (MAP) Pulse Ox O2 Delivery O2 Flow Rate FiO2 08/20/19 06:19 98.8 08/20/19 05:14 91 20 28 08/20/19 04:00 Mechanical Ventilator 08/20/19 04:00 95 08/20/19 04:00 28 08/20/19 04:00 100.7 92 22 106/53 (70) 98 08/20/19 03:30 90 19 28 08/20/19 01:30 92 18 28 08/20/19 00:00 Mechanical Ventilator 08/20/19 00:00 82 08/20/19 00:00 99.2 85 22 103/51 (68) 98 08/20/19 00:00 28 08/19/19 23:30 87 21 28 08/19/19 21:30 91 13 28 08/19/19 20:00 99.0 78 14 91/43 (59) 100 08/19/19 20:00 Mechanical Ventilator 08/19/19 20:00 84 08/19/19 20:00 28 08/19/19 19:30 90 13 28 08/19/19 17:35 87 89/52 08/19/19 17:28 92 13 28 08/19/19 16:00 Mechanical Ventilator 08/19/19 16:00 100.9 89 19 92/56 (68) 100 08/19/19 16:00 100 08/19/19 16:00 28 08/19/19 15:00 92 13 28 08/19/19 14:01 101 24 28 08/19/19 12:00 28 08/19/19 12:00 Mechanical Ventilator 08/19/19 12:00 88 08/19/19 12:00 98.8 85 18 102/55 (71) 100 08/19/19 11:00 93 13 28 08/19/19 10:35 83 100/52 08/19/19 08:36 83 27 28 Intake and Output 08/19/19 08/20/19 19:00 07:00 Intake Total 1040.0 ml 1578.333 ml Output Total 800 ml 400 ml Balance 240.0 ml 1178.333 ml Intake Free Water 500 ml 100 ml IV Total 510.0 ml 1148.333 ml Tube Feeding 30 ml 330 ml Output Urine Total 800 ml 400 ml # Bowel Movements 1 Objective WDWN NAD trach and GT in place clear breath sounds bilaterally without rhonchi or wheeze [id number] without MRG NABS nontender no HSM no CCE nonfocal Microbiology Date/Time Source Procedure Growth Status 08/18/19 16:00 Blood Blood Culture - Preliminary NO GROWTH AFTER 24 HOURS Resulted 08/18/19 15:07 Blood Blood Culture - Preliminary NO GROWTH AFTER 24 HOURS Resulted 08/18/19 20:00 Sputum Gram Stain - Final Resulted 08/18/19 20:00 Sputum Culture - Preliminary Gram Negative Bacillus 1 Usual Respiratory Mira Resulted 08/18/19 18:00 Nasal Nares MRSA Culture - Final Staphylococcus Aureus - Mrsa Complete 08/18/19 15:07 Nasal Nares - Final Complete 08/18/19 15:07 Nasal Nares - Final Complete 08/18/19 15:00 Urine,Clean Catch Urine Culture - Final NO GROWTH AFTER 48 HOURS Complete 08/18/19 18:00 Rectum Received Laboratory Tests 08/20/19 04:00: White Blood Count 17.0H, Red Blood Count 2.31L, Hemoglobin 6.4*L, Hematocrit 19.5L, Mean Corpuscular Volume 85, Mean Corpuscular Hemoglobin 27.6, Mean Corpuscular Hemoglobin Concent 32.7, Red Cell Distribution Width 13.9, Platelet Count 284, Mean Platelet Volume 5.2L, Neutrophils (%) (Auto) , Lymphocytes (%) ( Auto) , Monocytes (%) (Auto) , Eosinophils (%) (Auto) , Basophils (%) (Auto) , Neutrophils % (Manual) [Pending], Lymphocytes % (Manual) [Pending], Platelet Estimate [Pending], Platelet Morphology [Pending], Erythrocyte Sedimentation Rate [Pending], Prothrombin Time 13.1H, Prothromb Time International Ratio 1.2H , Activated Partial Thromboplast Time 41H, Sodium Level 135L, Potassium Level 4.3, Chloride Level 102, Carbon Dioxide Level 21, Anion Gap 12, Blood Urea Nitrogen 36H, Creatinine 1.6H, Estimat Glomerular Filtration Rate 43.5, Glucose Level 106, Calcium Level 8.2L, Total Bilirubin 0.3, Aspartate Amino Transf (AST/ SGOT) 29, Alanine Aminotransferase (ALT/SGPT) 10L, Alkaline Phosphatase 83, C- Reactive Protein, Quantitative 51.4H, Total Protein 6.7, Albumin 1.6L, Globulin 5.1, Albumin/Globulin Ratio 0.3L, Random Vancomycin Level 19.4 08/20/19 07:30: Iron Level [Pending], Unsaturated Iron Binding [Pending] Current Medications Medications (Trade) Dose Ordered Sig/Dolly Route PRN Reason Start Time Stop Time Status Last Admin Dose Admin Acetaminophen (Tylenol) 650 mg Q4H PRN GT Mild Pain/Temp > 100.5 08/19/19 14:15 09/18/19 14:14 08/20/19 05:49 Albuterol Sulfate (Proventil) 2.5 mg Q6H PRN HHN Shortness of Breath 08/18/19 20:00 08/23/19 19:59 Ascorbic Acid (Vitamin C) 500 mg TWICE A DAY GT 08/19/19 18:00 09/18/19 17:59 08/19/19 17:46 Atenolol (Tenormin) 12.5 mg BID GT 08/19/19 09:00 09/18/19 08:59 08/19/19 10:35 Barium Sulfate (Readi-Cat 2) 450 ml NOW PRN ORAL Radiology Procedure 08/19/19 07:45 08/21/19 07:39 Chlorhexidine Gluconate (Leesa-Hex 2%) 1 applic DAILY@1999 TOPIC 08/19/19 20:00 09/18/19 19:59 08/19/19 20:17 Docusate Sodium (Colace) 100 mg DAILY GT 08/20/19 09:00 09/19/19 08:59 Famotidine (Pepcid) 20 mg TWICE A DAY GT 08/19/19 09:00 09/18/19 08:59 08/19/19 17:47 Heparin Sodium (Porcine) (Heparin 5000 units/ml) 5,000 units EVERY 12 HOURS SUBQ 08/18/19 21:00 09/17/19 20:59 08/19/19 10:44 Heparin Sodium/ Sodium Chloride (Heparin 1000 units/500ml Premix) 1,000 unit ONCE PRN IV PICC LINE 08/19/19 07:30 08/21/19 07:29 Levetiracetam (Keppra) 500 mg EVERY 12 HOURS GT 08/18/19 21:00 09/17/19 20:59 08/19/19 20:17 Levothyroxine Sodium (Synthroid) 250 mcg DAILY@0630 GT 08/20/19 06:30 09/19/19 06:29 08/20/19 05:49 Lidocaine HCl (Xylocaine 1% 30ml) 30 ml ONCE PRN INJ PICC LINE 08/19/19 07:30 08/21/19 07:29 Piperacillin Sod/ Tazobactam Sod 3.375 gm/Sodium Chloride 110 ml @ 27.5 mls/hr Q8H IVPB 08/19/19 02:00 08/26/19 01:59 08/20/19 02:38 Sennosides (Senokot) 17.2 mg DAILY GT 08/19/19 09:00 09/18/19 08:59 08/19/19 10:36 Sodium Hypochlorite (Dakin's Quarter Strength) 1 applic DAILY TOPIC 08/20/19 09:00 09/19/19 08:59 Sodium Chloride 1,000 ml @ 100 mls/hr Q10H IV 08/18/19 20:00 09/17/19 19:59 08/20/19 02:37 Vancomycin HCl (Vanco rx to dose) 1 ea DAILY PRN MISC Per rx protocol 08/18/19 20:00 09/17/19 19:59 Cody Bran MD Aug 20, 2019 08:14
[2019-08-20 08:40] LABS: % IRON SATURATION 16 % (15-50); IRON 19 ug/dL (50-175); TOTAL IRON BINDING CAPACITY 120 ug/dL (250-450)
[2019-08-20] MEDS: Atenolol 25mg tab GT SCH ×2 (09:00→18:00)
[2019-08-20] MEDS: Heparin 5000 units/ml inj SUBQ SCH ×2 (09:00→20:05)
[2019-08-20] MEDS: Dakin's 0.125% Soln (Quarter Strength) 16oz TOPIC SCH (09:25)
[2019-08-20] MEDS: Docusate 100mg/10ml Liq GT SCH (09:25)
[2019-08-20] MEDS: Ascorbic Acid 500mg tab GT SCH ×2 (09:25→18:12)
[2019-08-20] MEDS: Sennosides 8.6mg tab GT SCH (09:26)
--- NOTE | 2019-08-20 11:32 | Surgery Progress Note ---
Surgery Progress Note Subjective Additional Comments ill appearing leukocytosis anemia Objective Last 24 Hour Vital Signs Date Time Temp Pulse Resp B/P (MAP) Pulse Ox O2 Delivery O2 Flow Rate FiO2 08/20/19 11:19 77 17 28 08/20/19 09:00 82 96/51 08/20/19 08:43 74 14 28 08/20/19 08:00 98.8 94 20 96/51 (66) 98 08/20/19 08:00 82 08/20/19 08:00 Mechanical Ventilator 08/20/19 08:00 28 08/20/19 06:37 89 16 28 08/20/19 06:19 98.8 08/20/19 05:14 91 20 28 08/20/19 04:00 Mechanical Ventilator 08/20/19 04:00 95 08/20/19 04:00 28 08/20/19 04:00 100.7 92 22 106/53 (70) 98 08/20/19 03:30 90 19 28 08/20/19 01:30 92 18 28 08/20/19 00:00 Mechanical Ventilator 08/20/19 00:00 82 08/20/19 00:00 99.2 85 22 103/51 (68) 98 08/20/19 00:00 28 08/19/19 23:30 87 21 28 08/19/19 21:30 91 13 28 08/19/19 20:00 99.0 78 14 91/43 (59) 100 08/19/19 20:00 Mechanical Ventilator 08/19/19 20:00 84 08/19/19 20:00 28 08/19/19 19:30 90 13 28 08/19/19 17:35 87 89/52 08/19/19 17:28 92 13 28 08/19/19 16:00 Mechanical Ventilator 08/19/19 16:00 100.9 89 19 92/56 (68) 100 08/19/19 16:00 100 08/19/19 16:00 28 08/19/19 15:00 92 13 28 08/19/19 14:01 101 24 28 08/19/19 12:00 28 08/19/19 12:00 Mechanical Ventilator 08/19/19 12:00 88 08/19/19 12:00 98.8 85 18 102/55 (71) 100 I&O Intake and Output 08/19/19 08/20/19 19:00 07:00 Intake Total 1040.0 ml 1578.333 ml Output Total 800 ml 400 ml Balance 240.0 ml 1178.333 ml Intake Free Water 500 ml 100 ml IV Total 510.0 ml 1148.333 ml Tube Feeding 30 ml 330 ml Output Urine Total 800 ml 400 ml # Bowel Movements 1 Dressing: other Wound: other Drains: other Cardiovascular: RSR Respiratory: decreased breath sounds Abdomen: soft, present bowel sounds, other Extremities: no tenderness, no cyanosis, other Laboratory Tests Test 08/20/19 04:00 08/20/19 07:30 White Blood Count 17.0 K/UL (4.8-10.8) H Red Blood Count 2.31 M/UL (4.70-6.10) L Hemoglobin 6.4 G/DL (14.2-18.0) *L Hematocrit 19.5 % (42.0-52.0) L Mean Corpuscular Volume 85 FL (80-99) Mean Corpuscular Hemoglobin 27.6 PG (27.0-31.0) Mean Corpuscular Hemoglobin Concent 32.7 G/DL (32.0-36.0) Red Cell Distribution Width 13.9 % (11.6-14.8) Platelet Count 284 K/UL (150-450) Mean Platelet Volume 5.2 FL (6.5-10.1) L Neutrophils (%) (Auto) % (45.0-75.0) Lymphocytes (%) (Auto) % (20.0-45.0) Monocytes (%) (Auto) % (1.0-10.0) Eosinophils (%) (Auto) % (0.0-3.0) Basophils (%) (Auto) % (0.0-2.0) Differential Total Cells Counted 100 Neutrophils % (Manual) 84 % (45-75) H Lymphocytes % (Manual) 2 % (20-45) L Monocytes % (Manual) 6 % (1-10) Eosinophils % (Manual) 0 % (0-3) Basophils % (Manual) 0 % (0-2) Band Neutrophils 8 % (0-8) Platelet Estimate Adequate Platelet Morphology Normal Hypochromasia 1+ Erythrocyte Sedimentation Rate 147 MM/HR (0-20) H Prothrombin Time 13.1 SEC (9.30-11.50) H Prothromb Time International Ratio 1.2 (0.9-1.1) H Activated Partial Thromboplast Time 41 SEC (23-33) H Sodium Level 135 MMOL/L (136-145) L Potassium Level 4.3 MMOL/L (3.5-5.1) Chloride Level 102 MMOL/L (98-107) Carbon Dioxide Level 21 MMOL/L (21-32) Anion Gap 12 mmol/L (5-15) Blood Urea Nitrogen 36 mg/dL (7-18) H Creatinine 1.6 MG/DL (0.55-1.30) H Estimat Glomerular Filtration Rate 43.5 mL/min (>60) Glucose Level 106 MG/DL (74-106) Calcium Level 8.2 MG/DL (8.5-10.1) L Total Bilirubin 0.3 MG/DL (0.2-1.0) Aspartate Amino Transf (AST/SGOT) 29 U/L (15-37) Alanine Aminotransferase (ALT/SGPT) 10 U/L (12-78) L Alkaline Phosphatase 83 U/L (46-116) C-Reactive Protein, Quantitative 51.4 mg/dL (0.00-0.90) H Total Protein 6.7 G/DL (6.4-8.2) Albumin 1.6 G/DL (3.4-5.0) L Globulin 5.1 g/dL Albumin/Globulin Ratio 0.3 (1.0-2.7) L Random Vancomycin Level 19.4 ug/mL Iron Level 19 ug/dL (50-175) L Total Iron Binding Capacity 120 ug/dL (250-450) L Percent Iron Saturation 16 % (15-50) Unsaturated Iron Binding 101 ug/dL (112-346) L Plan Problems: (1) Tracheostomy in place Assessment & Plan: A dense retrocardiac opacification demonstrated with silhouetting of the left hemidiaphragm appearing worse than on the prior occasion. This was seen to some extent on the prior occasion. Heart size is normal. Lung volumes are low. Tracheostomy is noted. Bones are osteopenic. IMPRESSION: Retrocardiac density. Consider pneumonia although the finding was present to some extent on the prior occasion indicating a part of this may be chronic. Correlate clinically. Tracheostomy (2) Fever (3) Chronic respiratory failure (4) Vegetative state (5) Sepsis Assessment & Plan: Patient admitted with sepsis fevers, tachycardia, leukocytosis, abnormal labs, renal insufficiency. Antibiotics as per infectious disease Patient identified to have multiple wounds on admission some foul-smelling and malodorous with drainage. Wound evaluated bedside no acute active infection identified and source of sepsis unlikely from patient's wounds. Patient has chronic stage IV sacral decubitus ulcer with necrotic tissue and slough and eschar. No purulent drainage. Foul odor likely from incontinence. We will continue to follow with recommendations Orders placed Thank you for let me participate in patient's care (6) MDRO (multiple drug resistant organisms) resistance (7) Feeding by G-tube Assessment & Plan: DAILY ESTIMATED NEEDS: Needs based on Critical care, wound/ 63.4kg abw 25-30 kcals/kg 7326-3577 total kcals 1.5-2 g protein/kg 95-127 g total protein 25-30 mL/kg 2862-4248 total fluid mLs NUTRITION DIAGNOSIS: (1) Swallowing difficulty R/T respiratory status as evidenced by pt trach-vent dep, on GT feeding. (2) Increased kcal/pro needs R/T wound healing as evidenced by pt admitted w/ advanced wounds, pending eval CURRENT TF:Glucerna 1.5 @ 30ml/hr x 22 hrs ENTERAL NUTRITION RECOMMENDATIONS: Glucerna 1.5 @ 55ml/hr x 22 hrs to provide 1210ml, 1815kcal, 100g prot, 918ml free water * Increase goal rate to 55ml/hr x 22 hrs * Hold 1 hour before and after Synthroid administration * HOB over 30 degrees/ water flush per MD ADDITIONAL RECOMMENDATIONS: * Per SNF: HT=64" JT=139zto (as of 07/30/19) * Wound healing: add Vit C 500mg BID add Dong 1pkt BID (mix w/ 4oz water) * Monitor lytes, replete as needed * Add NISS: h/o DM, on TF (8) Low grade fever (9) Severe anoxic-ischemic encephalopathy (10) Seizure disorder as sequela of cerebrovascular accident (11) Stage 4 skin ulcer of sacral region Assessment & Plan: Pt presented on admission with contractures and multiple pressure injuries. Full thickness pressure injury occipital. Base of wound is 40% necrotic with surrounding scattered slough and erythema. Small amt serous exudate. No odor noted. Edges are macerated and dark with surrounding erythema and denuded skin. (L)5.1cm x (W)8.2cm. Skin folds of neck very moist but no evidence of skin breakdown noted under collar of trach. Full thickness sacral pressure injury with undermined borders.(L)4.5cm x (W) 4.5cm x (D)1.5cm,undermining clockwise 3-11 by 1.3cm @3o'clock. Base of wound is 75% necrotic, 25% mixed slough and erythema. Wound is malodorous. Bone is visible at base of wound.Small amt seropurulent exudate noted. Non-blanching erythema without induration periwound. Resolving pressure injury lateral R tibia . scattered dry eschar with surrounding pink epithelial noted .Periwound without erythema or induration(L) 5cm x (W)0.9cm. Distal aspect of R foot is dusky. R 1st metatarsal is 75% necrotic,25% moist erythema.Oozing small amt haemopurulent exudate.Wound is malodorous. Borders are macerated(L)5.3cm x (W)4cm. R 2nd ,3rd,4th and 5th metatarsals noted to have dry eschar dorsally. Stable dry eschar dorsal R foot (L)0.4cm x (W)2.6cm. scattered dry scabs noted to madison upper L thigh. No erythema noted at site. Lateral L foot extending to L 5th metatarsal head including plantar aspect is 90 % necrotic, with areas of fluctuance within base.5% surrounding moist erythema.Edges adherent to base of base of wound. Mild odor noted (L)4cm x (W) 14.5cm. Resolving pressure injury L lateral malleolus. Moist erythema with surrounding dry pink epithelial noted.(L)1cm x (W)0.8cm. Periwound without erythema or fluctuance. Both heels are boggy with scattered areas of hyperpigmentation from previous wounds. Tx.Plan: Cleanse wound Occipital with Dakin's 0.125% carlos a. Apply Dakin's Moistened Gauze. Cover with Optifoam drsg Daily and prn. Cleanse Sacral wound with Dakin's 0.125% carlos a.Loosely pack with Dakin's moistened kerlix. Apply Moisture Barrier Paste periwound. Cover with Optifoam drsg Daily and prn. Cleanse R 1st metatarsal with Dakin's 0.125% carlos a. Apply Dakin's moistened 2x2 Gauze. Apply Cavilon Skin Barrier periwound.Cover with ABD. Wrap with Kerlix Daily and prn. Swab Dorsal Aspects of R 2nd,3rd,4th and 5th metatarsals with Betadine Daily and prn. Cleanse wound lateral L foot with Dakin's 0.125% carlos a. Apply Dakin's moist gauze. Apply Cavilon Periwound. Cover with ABD pad and wrap with Kerlix Daily and prn. Apply Cavilon Skin Barrier to both heels. Cover each heel with Optifoam drsg. Change every 7 days and prn. Cover lateral R tibia with Optifoam drsg. Change every 7 days and prn. Air fluidized mattress. Reposition at least every 2hours or as tolerated. Place pillow between knees . Place pillow behind knees to off-load heels. Position head to side to relieve pressure off Occipital wound. Evens Kaur Aug 20, 2019 11:32
[2019-08-20 12:00] VITALS: BP 107/61
--- NOTE | 2019-08-20 13:57 | NUR ---
*-* INSURANCE *-* ALL AVAILABLE CLINICALS HAVE BEEN FAXED TO: [employer] ph# [phone] fax#[phone] reviews/clinicals & Chelsie Couch ph#[phone] fax# [phone] reviews/clinicals
[2019-08-20 16:00] VITALS: BP 104/61
--- NOTE | 2019-08-20 17:05 | NUR ---
NURSE NOTES: PT HGB 6.4, M.D UOMOTO AWARE AND NOTIFIED . M.D ORDER TO GIVE A BLOOD TRANSFUSION TODAY TWO UNITS. PT STARTED WITH 1ST UNIT OF P-RBC TRANSFUSION PER M.D ORDERS.PT TOLERATING WELL BLOOD TRANSFUSION AT THIS TIME. WILL CONT TO MONITOR.
--- NOTE | 2019-08-20 17:20 | NUR ---
NURSE NOTES:PT TOLERATING WELL BLOOD TRANSFUSION NO S/S OF BANYN ADVERSE REACTIONS NOTED AT THIS TIME. WILL CONT TO MONITOR.
--- NOTE | 2019-08-20 18:00 | NUR ---
NURSE NOTES:UNABLE TO GIVE Z0SYN 3.375MG IVPB AT THIS TIME. PT RECEIVING A BLOOD TRANSFUSION,KEVIN FROM PHARMACY STAFF AWARE AND NOTIFIED.
--- NOTE | 2019-08-20 19:05 | NUR ---
HAND-OFF: Report given to .BRADY SOW.
--- NOTE | 2019-08-20 19:06 | NUR ---
NURSE NOTES: received pt from Kalpesh SOW., pt is currently getting 1Unit for RBC (1st RBC out of 2), pt is on vent, no SOB noted. O2sat is at 100%. Gtube site clean, intact, and patent, glucerna 1.5 is running at 30cc/hr. pt has condom cath on and no leaking noted. Left Upper arm 20G and Right hand 22G IV are intact, clean, and patent. pt is resting on the bed and obtunded with open eye spontaneously. call light within reach. bed at the lowest position, alarmed,and locked. will continue to monitor pt with plan of care.
--- NOTE | 2019-08-20 19:22 | NUR ---
RESPIRATORY NOTE: Received pt on AC 12, 600VT, 28%%, PEEP +5. Pt is trach-dependent w/ a cuffed, Portex 7 tube. Pt is flat effect/obtunded. B/S elijah. rhonchi, sxn small amounts of thick, pale-yellow to robison-yellow secretions. Vent plugged into red outlet, ambubag at bedside. Pt in no apparent distress at this time. Will continue plan of care.
--- NOTE | 2019-08-20 19:30 | NUR ---
NURSE NOTES: 1ST UNIT OF P-RBC COMPLETED.PT TOLERATED WELL ,NO S/S OF ANY ADVERSE REACTION NOTED AT THIS TIME.BRADY RN WILL GIVE 2ND UNIT OF P-RBC.WILL CONT TO MONITOR.
--- NOTE | 2019-08-20 19:55 | NUR ---
NURSE NOTES: started 2nd unit of RBC due to low Hbg 6.4. VS: BP 84/53 O2sat 100% HR84 T 98.4 axillary. no SOB noted. will continue to monitor pt. call light within reach.
[2019-08-20 20:00] VITALS: BP 84/53
--- NOTE | 2019-08-20 20:10 | NUR ---
NURSE NOTES: 15minutes after pt is getting 2nd unit of RBC. VS: BP 80/49 T 98.5 O2sat at 100% HR 82. no SOB noted at this moment. call light within reach. will continue to monitor pt closely.
--- NOTE | 2019-08-20 20:10 | NUR ---
NURSE NOTES: Dr. Pleitez is aware pt's SBP ranges from 80s to 85. no new order received. will continue to monitor pt closely. Addendum: 08/20/19 at 2100 by DEDE BENAVIDES RN NURSE NOTES: Dr. Plietez is aware pt's SBP ranges from 80s to 85 while getting 2nd unit of RBC. no new order received. will continue to monitor pt closely.
[2019-08-20] MEDS: Dyna-Hex 2% Top Sol 2oz TOPIC SCH (20:37)
--- NOTE | 2019-08-20 20:40 | General Progress Note ---
Assessment/Plan Status: stable, not improved Assessment/Plan: Assessment - acute on chronic anemia - chronic resp failure / trach - encephalopathy - contractures / decubitus - poor prognosis / not candidate for GI w/u Recommendations - transfuse PRN - check Iron and give IV replacement - PPI - TF - Wound care - supportive measures - address code status Discussed with Thank you Ted Rivero MD Subjective Allergies: Coded Allergies: No Known Allergies (Unverified , 12/13/16) Objective Last 24 Hour Vital Signs Date Time Temp Pulse Resp B/P (MAP) Pulse Ox O2 Delivery O2 Flow Rate FiO2 08/20/19 19:20 80 13 28 08/20/19 18:00 84 104/61 08/20/19 16:50 84 14 28 08/20/19 16:49 98.7 08/20/19 16:00 83 08/20/19 16:00 28 08/20/19 16:00 Mechanical Ventilator 08/20/19 16:00 98.7 76 20 104/61 (75) 100 08/20/19 14:30 75 16 28 08/20/19 13:18 76 16 28 08/20/19 12:00 Mechanical Ventilator 08/20/19 12:00 28 08/20/19 12:00 74 08/20/19 12:00 97.9 62 20 107/61 (76) 99 62 08/20/19 11:19 77 17 28 08/20/19 09:00 82 96/51 08/20/19 08:43 74 14 28 08/20/19 08:00 98.8 94 20 96/51 (66) 98 08/20/19 08:00 82 08/20/19 08:00 Mechanical Ventilator 08/20/19 08:00 28 08/20/19 06:37 89 16 28 08/20/19 05:14 91 20 28 08/20/19 04:00 Mechanical Ventilator 08/20/19 04:00 95 08/20/19 04:00 28 08/20/19 04:00 100.7 92 22 106/53 (70) 98 08/20/19 03:30 90 19 28 08/20/19 01:30 92 18 28 08/20/19 00:00 Mechanical Ventilator 08/20/19 00:00 82 08/20/19 00:00 99.2 85 22 103/51 (68) 98 08/20/19 00:00 28 08/19/19 23:30 87 21 28 08/19/19 21:30 91 13 28 Intake and Output 08/19/19 08/20/19 19:00 07:00 Intake Total 1040.0 ml 1578.333 ml Output Total 800 ml 400 ml Balance 240.0 ml 1178.333 ml Intake Free Water 500 ml 100 ml IV Total 510.0 ml 1148.333 ml Tube Feeding 30 ml 330 ml Output Urine Total 800 ml 400 ml # Bowel Movements 1 Laboratory Tests 08/20/19 04:00: White Blood Count 17.0H, Red Blood Count 2.31L, Hemoglobin 6.4*L, Hematocrit 19.5L, Mean Corpuscular Volume 85, Mean Corpuscular Hemoglobin 27.6, Mean Corpuscular Hemoglobin Concent 32.7, Red Cell Distribution Width 13.9, Platelet Count 284, Mean Platelet Volume 5.2L, Neutrophils (%) (Auto) , Lymphocytes (%) ( Auto) , Monocytes (%) (Auto) , Eosinophils (%) (Auto) , Basophils (%) (Auto) , Differential Total Cells Counted 100, Neutrophils % (Manual) 84H, Lymphocytes % (Manual) 2L, Monocytes % (Manual) 6, Eosinophils % (Manual) 0, Basophils % ( Manual) 0, Band Neutrophils 8, Platelet Estimate Adequate, Platelet Morphology Normal, Hypochromasia 1+, Erythrocyte Sedimentation Rate 147H, Prothrombin Time 13.1H, Prothromb Time International Ratio 1.2H, Activated Partial Thromboplast Time 41H, Sodium Level 135L, Potassium Level 4.3, Chloride Level 102, Carbon Dioxide Level 21, Anion Gap 12, Blood Urea Nitrogen 36H, Creatinine 1.6H, Estimat Glomerular Filtration Rate 43.5, Glucose Level 106, Calcium Level 8.2L, Total Bilirubin 0.3, Aspartate Amino Transf (AST/SGOT) 29, Alanine Aminotransferase (ALT/SGPT) 10L, Alkaline Phosphatase 83, C-Reactive Protein, Quantitative 51.4H, Total Protein 6.7, Albumin 1.6L, Globulin 5.1, Albumin/ Globulin Ratio 0.3L, Random Vancomycin Level 19.4 08/20/19 07:30: Iron Level 19L, Total Iron Binding Capacity 120L, Percent Iron Saturation 16, Unsaturated Iron Binding 101L Height (Feet): 5 Height (Inches): 8.00 Weight (Pounds): 159 Ted Rivero MD Aug 20, 2019 20:40
--- NOTE | 2019-08-20 20:44 | NUR ---
NURSE NOTES: per Dr. Pleitez it is okay to administer Keppra 500mg via GT while getting RBC transfusion. will noted and carry on.
--- NOTE | 2019-08-20 22:01 | NUR ---
NURSE NOTES: called Pharmacist Diogenes and notified blood transfusion is done.
--- NOTE | 2019-08-20 22:15 | NUR ---
NURSE NOTES: Dr. Pleitez is aware pt's SBP ranges from 80s to 83 even if after 2nd unit of RBC. NS 500ml bolus once order received, will carry on.
--- NOTE | 2019-08-20 22:45 | Progress Note ---
DATE: 08/20/2019 CARDIOLOGY PROGRESS NOTE SUBJECTIVE: The patient remains on ventilator support via tracheostomy. Hemoglobin has decreased, but no signs of bleeding. The patient remains poorly responsive. OBJECTIVE: VITAL SIGNS: Blood pressure 106/52, pulse 92, respirations 22, temperature 100.7. Lower extremity and skin wounds as previously outlined. LUNGS: With bilateral breath sounds. Few rhonchi. CARDIAC: Regular rhythm and rate. Normal S1, S2 with no murmur. ABDOMEN: Soft. EXTREMITIES: No edema. LABORATORY DATA: White count 17, hemoglobin 6.4. Total iron saturation 16%. BUN 36, creatinine 1.6, potassium 4.3. Albumin 1.6. IMPRESSION: 1. Osteomyelitis of the foot. 2. Severe protein-calorie malnutrition. 3. Iron deficiency with anemia. 4. Sepsis with shock. 5. Ventilator-dependent respiratory failure. 6. Healthcare associated pneumonia. PLAN: 1. Volume support. 2. Antimicrobials. 3. Ventilator support. 4. Cardiac monitoring. 5. Transfusion of packed red blood cells. 6. Nutrition by feeding tube. 7. Debridement of foot and long-term antimicrobial therapy. 8. Amputation may need to be addressed. Kyaw Gonzalez M.D. DR: CHRISTIANO JOB#: [id number] CC:
[2019-08-21] VITALS: BP 109/53
[2019-08-21] MEDS: Acetaminophen 650mg/20.3ml GT PRN (00:03)
[2019-08-21 04:00] VITALS: BP 95/53
--- NOTE | 2019-08-21 05:00 | Consultation ---
DATE OF CONSULTATION: 08/20/2019 CONSULTING PHYSICIAN: Ted Rivero M.D. CHIEF COMPLAINT: I was asked to see this patient by Dr. Amadeo Pleitez for evaluation of anemia. HISTORY OF PRESENT ILLNESS: The patient is an unfortunate debilitated 68-year-old [place] man with chronic respiratory failure with tracheostomy and ventilatory dependence. He was brought into the hospital due to worsening wounds, leukocytosis, and fever. He has been seen by multiple consultants and antibiotics have been started. As a part of his admission evaluation, he has been noted to have progressively worsening anemia and he has been required to get a transfusion today. There have been no reports of hematochezia or melena. I have discussed the case with the patient's who states that he has never had a gastrointestinal workup and she understands and agrees that he is too ill and in poor health to undergo such evaluation as endoscopy or colonoscopy. PAST MEDICAL HISTORY: History of developmental delay, respiratory failure, tracheostomy, gastrostomy, gastroesophageal reflux, and chronic anemia. FAMILY HISTORY: Noncontributory. SOCIAL HISTORY: The patient is a residential resident. There is no recent history of smoking. REVIEW OF SYSTEMS: Unobtainable. PHYSICAL EXAMINATION: GENERAL: Debilitated and nonresponsive [place] man seen in his room. HEENT: Normocephalic and atraumatic. Tracheostomy in place. CHEST: Revealed coarse breath sounds. CARDIOVASCULAR: Revealed regular rate. ABDOMEN: Soft with gastrostomy tube. EXTREMITIES: Revealed no edema. There are contractures and decubitus ulcers. LABORATORY DATA: Noted. ASSESSMENT: This patient has chronic respiratory failure, encephalopathy, is bed-bound, has contracture deformities and decubitus ulcer. The patient is in overall very poor health. His anemia, however, is chronic and there may be an acute component at this point. He should be transfused as needed and iron supplementation should be given to help boost some of his own production. Given his contracted bedbound state, he is at high risk for reflux and therefore twice daily proton pump inhibitor will be given to cover the component of gastroesophageal reflux. The patient is not a candidate for endoscopy or colonoscopy and therefore should be managed supportively. RECOMMENDATIONS: Per above discussion and per orders written in the chart. Thank you for asking me to participate in the care of this patient. Ted Rivero M.D. DR: Josette JOB#: [id number] CC: HARSHA
[2019-08-21] MEDS: LEVOTHYROXINE SODIUM 250 MCG GT SCH ×2 (05:42)
[2019-08-21] MEDS: Piperacillin/Tazobactam 3.375 GM in NS 110 ML IVPB SCH (05:43)
[2019-08-21 05:57] LABS: HEMATOCRIT 27.3 % (42.0-52.0); HEMOGLOBIN 9.1 G/DL (14.2-18.0); MEAN CORPUSCULAR VOLUME 83 FL (80-99); PLATELET COUNT 240 K/UL (150-450); RED BLOOD COUNT 3.28 M/UL (4.70-6.10); RED CELL DISTRIBUTION WIDTH 14.2 % (11.6-14.8); WHITE BLOOD COUNT 10.5 K/UL (4.8-10.8)
[2019-08-21 06:50] LABS: ALANINE AMINOTRANSFERASE 17 U/L (12-78); ALBUMIN 1.4 G/DL (3.4-5.0); ALBUMIN/GLOBULIN RATIO 0.3 (1.0-2.7); ALKALINE PHOSPHATASE 75 U/L (46-116); ANION GAP 16 mmol/L (5-15); ASPARTATE AMINO TRANSFERASE 23 U/L (15-37); BILIRUBIN,TOTAL 0.3 MG/DL (0.2-1.0); BLOOD UREA NITROGEN 29 mg/dL (7-18); CALCIUM 7.9 MG/DL (8.5-10.1); CARBON DIOXIDE 16 MMOL/L (21-32); CHLORIDE 110 MMOL/L (98-107); CREATININE 1.3 MG/DL (0.55-1.30); POTASSIUM 3.9 MMOL/L (3.5-5.1); SODIUM 142 MMOL/L (136-145)
--- NOTE | 2019-08-21 07:11 | NUR ---
RESPIRATORY NOTE: received pt on current vent settings in no apparent resp distress. pt is vent dependent with tracheostomy in place. trach size portex 7 and is secured via trach tie/guard. no visible redness or skin irritation around stoma or neck area. alarms are set and audible with ambu bag at bedside. will cont to monitor throughout the day.
--- NOTE | 2019-08-21 07:30 | NUR ---
HAND-OFF: Report given to Loren SOW.pt remains stable and no SOB noted at this time.
[2019-08-21 08:00] VITALS: BP 99/61
[2019-08-21] MEDS: Docusate 100mg/10ml Liq GT SCH (08:31)
[2019-08-21] MEDS: Sennosides 8.6mg tab GT SCH (08:32)
[2019-08-21] MEDS: Ascorbic Acid 500mg tab GT SCH ×2 (08:32→17:53)
--- NOTE | 2019-08-21 08:33 | Pulmonology Progress Note ---
Assessment/Plan Assessment/Plan trach vent dependent respiratory failure seizure disorder possible sepsis chronic encephalopathy PLAN vent support antibiotics noted monitor HH feeds off load monitor labs for change ID follow up and recommendations impression, plan, and exam edited and reviewed in detail care discussed with RN Subjective ROS Limited/Unobtainable: Yes Allergies: Coded Allergies: No Known Allergies (Unverified , 12/13/16) Subjective care noted on vent s/p transfusion Objective Last 24 Hour Vital Signs Date Time Temp Pulse Resp B/P (MAP) Pulse Ox O2 Delivery O2 Flow Rate FiO2 08/21/19 08:00 99.6 79 15 99/61 (74) 100 79 08/21/19 07:09 73 15 28 08/21/19 05:15 77 13 28 08/21/19 04:00 83 08/21/19 04:00 Mechanical Ventilator 08/21/19 04:00 28 08/21/19 04:00 98.8 79 15 95/53 (67) 100 08/21/19 02:52 80 13 28 08/21/19 01:02 94 14 28 08/21/19 00:33 98.6 08/21/19 00:00 100.5 96 22 109/53 (71) 100 08/21/19 00:00 90 08/21/19 00:00 28 08/21/19 00:00 Mechanical Ventilator 08/20/19 22:40 87 21 28 08/20/19 21:06 82 16 28 08/20/19 20:00 28 08/20/19 20:00 Mechanical Ventilator 08/20/19 20:00 98.4 76 20 84/53 (63) 100 08/20/19 20:00 77 08/20/19 19:20 80 13 28 08/20/19 18:00 84 104/61 08/20/19 16:50 84 14 28 08/20/19 16:00 83 08/20/19 16:00 28 08/20/19 16:00 Mechanical Ventilator 08/20/19 16:00 98.7 76 20 104/61 (75) 100 08/20/19 14:30 75 16 28 08/20/19 13:18 76 16 28 08/20/19 12:00 Mechanical Ventilator 08/20/19 12:00 28 08/20/19 12:00 74 08/20/19 12:00 97.9 62 20 107/61 (76) 99 62 08/20/19 11:19 77 17 28 08/20/19 09:00 82 96/51 08/20/19 08:43 74 14 28 Intake and Output 08/20/19 08/21/19 19:00 07:00 Intake Total 1492.5 ml 1577.5 ml Output Total 700 ml 400 ml Balance 792.5 ml 1177.5 ml Intake Free Water 200 ml 150 ml IV Total 782.5 ml 997.5 ml Tube Feeding 360 ml 430 ml Blood Product 150 ml Output Urine Total 700 ml 400 ml # Voids 2 # Bowel Movements 1 2 Objective WDWN NAD trach and GT in place clear breath sounds bilaterally without rhonchi or wheeze [id number] without MRG NABS nontender no HSM no CCE nonfocal contractures Microbiology Date/Time Source Procedure Growth Status 08/18/19 16:00 Blood Blood Culture - Preliminary NO GROWTH AFTER 48 HOURS Resulted 08/18/19 15:07 Blood Blood Culture - Preliminary NO GROWTH AFTER 48 HOURS Resulted 08/18/19 20:00 Sputum Gram Stain - Final Resulted 08/18/19 20:00 Sputum Culture - Preliminary Pseudomonas Aeruginosa Usual Respiratory Mira Resulted 08/18/19 18:00 Nasal Nares MRSA Culture - Final Staphylococcus Aureus - Mrsa Complete 08/18/19 15:07 Nasal Nares - Final Complete 08/18/19 15:07 Nasal Nares - Final Complete 08/18/19 15:00 Urine,Clean Catch Urine Culture - Final NO GROWTH AFTER 48 HOURS Complete 08/18/19 18:00 Rectum VRE Culture - Final Enterococcus Faecalis - Vre Complete 08/18/19 18:00 Rectum - Final NO CARBAPENEM-RESISTANT ENTEROBACTERI... Complete Laboratory Tests 08/21/19 04:30: White Blood Count 10.5, Red Blood Count 3.28L, Hemoglobin 9.1#L, Hematocrit 27.3 #L, Mean Corpuscular Volume 83, Mean Corpuscular Hemoglobin 27.8, Mean Corpuscular Hemoglobin Concent 33.4, Red Cell Distribution Width 14.2, Platelet Count 240, Mean Platelet Volume 5.5L, Neutrophils (%) (Auto) , Lymphocytes (%) ( Auto) , Monocytes (%) (Auto) , Eosinophils (%) (Auto) , Basophils (%) (Auto) , Neutrophils % (Manual) [Pending], Lymphocytes % (Manual) [Pending], Platelet Estimate [Pending], Platelet Morphology [Pending], Sodium Level 142, Potassium Level 3.9, Chloride Level 110H, Carbon Dioxide Level 16L, Anion Gap 16H, Blood Urea Nitrogen 29H, Creatinine 1.3, Estimat Glomerular Filtration Rate 55.2, Glucose Level 105, Calcium Level 7.9L, Total Bilirubin 0.3, Aspartate Amino Transf (AST/SGOT) 23, Alanine Aminotransferase (ALT/SGPT) 17, Alkaline Phosphatase 75, Total Protein 6.2L, Albumin 1.4L, Globulin 4.8, Albumin/ Globulin Ratio 0.3L, Random Vancomycin Level 11.6 Current Medications Medications (Trade) Dose Ordered Sig/Dolly Route PRN Reason Start Time Stop Time Status Last Admin Dose Admin Acetaminophen (Tylenol) 650 mg Q4H PRN GT Mild Pain/Temp > 100.5 08/19/19 14:15 09/18/19 14:14 08/21/19 00:03 Albuterol Sulfate (Proventil) 2.5 mg Q6H PRN HHN Shortness of Breath 08/18/19 20:00 08/23/19 19:59 Ascorbic Acid (Vitamin C) 500 mg TWICE A DAY GT 08/19/19 18:00 09/18/19 17:59 08/20/19 18:12 Atenolol (Tenormin) 12.5 mg BID GT 08/19/19 09:00 09/18/19 08:59 08/19/19 10:35 Docusate Sodium (Colace) 100 mg DAILY GT 08/20/19 09:00 09/19/19 08:59 08/20/19 09:25 Heparin Sodium (Porcine) (Heparin 5000 units/ml) 5,000 units EVERY 12 HOURS SUBQ 08/18/19 21:00 09/17/19 20:59 08/19/19 10:44 Iron Sucrose 100 mg/Sodium Chloride 60 ml @ 240 mls/hr BEDTIME IV 08/21/19 21:00 08/25/19 21:14 Levetiracetam (Keppra) 500 mg EVERY 12 HOURS GT 08/18/19 21:00 09/17/19 20:59 08/20/19 21:34 Levothyroxine Sodium (Synthroid) 250 mcg DAILY@0630 GT 08/20/19 06:30 09/19/19 06:29 08/21/19 05:42 Pantoprazole (Protonix) 40 mg EVERY 12 HOURS ORAL 08/21/19 09:00 09/20/19 08:59 Piperacillin Sod/ Tazobactam Sod 3.375 gm/Sodium Chloride 110 ml @ 27.5 mls/hr Q8HR IVPB 08/20/19 22:00 08/27/19 21:59 08/21/19 05:43 Sennosides (Senokot) 17.2 mg DAILY GT 08/19/19 09:00 09/18/19 08:59 08/20/19 09:26 Sodium Hypochlorite (Dakin's Quarter Strength) 1 applic DAILY TOPIC 08/20/19 09:00 09/19/19 08:59 08/20/19 09:25 Sodium Chloride 1,000 ml @ 100 mls/hr Q10H IV 08/18/19 20:00 09/17/19 19:59 08/20/19 22:22 Vancomycin HCl (Vanco rx to dose) 1 ea DAILY PRN MISC Per rx protocol 08/18/19 20:00 09/17/19 19:59 Vancomycin HCl 500 mg/Sodium Chloride 110 ml @ 110 mls/hr Q24H IVPB 08/21/19 09:00 08/26/19 08:59 Cody Bran MD Aug 21, 2019 08:33
[2019-08-21] MEDS: Dakin's 0.125% Soln (Quarter Strength) 16oz TOPIC SCH (08:37)
[2019-08-21] MEDS: Heparin 5000 units/ml inj SUBQ SCH ×2 (08:37→21:00)
[2019-08-21] MEDS: Atenolol 25mg tab GT SCH ×2 (08:37→17:54)
[2019-08-21] MEDS ORDERED: Dakin's 0.125% Soln (Quarter Strength) 16oz TOPIC SCH (09:00)
[2019-08-21] MEDS: Vancomycin 500 MG in NS 110 ML IVPB SCH (09:39)
--- NOTE | 2019-08-21 09:57 | NUR ---
*-* INSURANCE *-* ALL AVAILABLE CLINICALS HAVE BEEN FAXED TO: [facility] ph# [phone] fax#[phone] reviews/clinicals & Chelsie Couch ph#[phone] fax# [phone] reviews/clinicals
--- NOTE | 2019-08-21 11:56 | NUR ---
RD ASSESSMENT & RECOMMENDATIONS SEE CARE ACTIVITY FOR COMPLETE ASSESSMENT DAILY ESTIMATED NEEDS: Needs based on Critical care, wound/ 63.4kg abw 25-30 kcals/kg 6737-7757 total kcals 1.5-2 g protein/kg 95-127 g total protein 25-30 mL/kg 4272-7346 total fluid mLs NUTRITION DIAGNOSIS: (1) Swallowing difficulty R/T respiratory status as evidenced by pt trach-vent dep, on GT feeding. (2) Increased kcal/pro needs R/T wound healing as evidenced by pt admitted w/ advanced wounds, including full thickness wounds @ occipital and sacrum, refer to WC eval. CURRENT TF:Glucerna 1.5 @ 45ml/hr x 22 hrs ENTERAL NUTRITION RECOMMENDATIONS: Glucerna 1.5 @ 55ml/hr x 22 hrs to provide 1210ml, 1815kcal, 100g prot, 918ml free water * Increase goal rate to 55ml/hr x 22 hrs * Hold 1 hour before and after Synthroid administration * HOB over 30 degrees/ water flush per MD ADDITIONAL RECOMMENDATIONS: * Per SNF: HT=64" [id number] (as of 07/30/19) * Wound healing: Continue Vit C 500mg BID add Dong 1pkt BID (mix w/ 4oz water) * Monitor lytes, replete as needed * Monitor BGs, need for NISS: h/o DM, on TF
[2019-08-21 12:00] VITALS: BP 97/54
--- NOTE | 2019-08-21 14:34 | Surgery Progress Note ---
Surgery Progress Note Subjective Additional Comments no acute events ill appearing tolerating tf labs noted Objective Last 24 Hour Vital Signs Date Time Temp Pulse Resp B/P (MAP) Pulse Ox O2 Delivery O2 Flow Rate FiO2 08/21/19 12:41 84 13 28 08/21/19 12:00 85 08/21/19 12:00 98.8 85 16 97/54 (68) 100 08/21/19 12:00 Mechanical Ventilator 08/21/19 12:00 28 08/21/19 10:36 88 18 28 08/21/19 08:53 86 22 28 08/21/19 08:37 79 99/61 08/21/19 08:00 Mechanical Ventilator 08/21/19 08:00 28 08/21/19 08:00 99.6 79 15 99/61 (74) 100 79 08/21/19 08:00 77 08/21/19 07:09 73 15 28 08/21/19 05:15 77 13 28 08/21/19 04:00 83 08/21/19 04:00 Mechanical Ventilator 08/21/19 04:00 28 08/21/19 04:00 98.8 79 15 95/53 (67) 100 08/21/19 02:52 80 13 28 08/21/19 01:02 94 14 28 08/21/19 00:33 98.6 08/21/19 00:00 100.5 96 22 109/53 (71) 100 08/21/19 00:00 90 08/21/19 00:00 28 08/21/19 00:00 Mechanical Ventilator 08/20/19 22:40 87 21 28 08/20/19 21:06 82 16 28 08/20/19 20:00 28 08/20/19 20:00 Mechanical Ventilator 08/20/19 20:00 98.4 76 20 84/53 (63) 100 08/20/19 20:00 77 08/20/19 19:20 80 13 28 08/20/19 18:00 84 104/61 08/20/19 16:50 84 14 28 08/20/19 16:00 83 08/20/19 16:00 28 08/20/19 16:00 Mechanical Ventilator 08/20/19 16:00 98.7 76 20 104/61 (75) 100 I&O Intake and Output 08/20/19 08/21/19 19:00 07:00 Intake Total 1492.5 ml 1577.5 ml Output Total 700 ml 400 ml Balance 792.5 ml 1177.5 ml Intake Free Water 200 ml 150 ml IV Total 782.5 ml 997.5 ml Tube Feeding 360 ml 430 ml Blood Product 150 ml Output Urine Total 700 ml 400 ml # Voids 2 # Bowel Movements 1 2 Dressing: other Wound: other Drains: other Cardiovascular: RSR Respiratory: decreased breath sounds Abdomen: soft, present bowel sounds Extremities: no cyanosis Laboratory Tests Test 08/21/19 04:30 White Blood Count 10.5 K/UL (4.8-10.8) Red Blood Count 3.28 M/UL (4.70-6.10) L Hemoglobin 9.1 G/DL (14.2-18.0) #L Hematocrit 27.3 % (42.0-52.0) #L Mean Corpuscular Volume 83 FL (80-99) Mean Corpuscular Hemoglobin 27.8 PG (27.0-31.0) Mean Corpuscular Hemoglobin Concent 33.4 G/DL (32.0-36.0) Red Cell Distribution Width 14.2 % (11.6-14.8) Platelet Count 240 K/UL (150-450) Mean Platelet Volume 5.5 FL (6.5-10.1) L Neutrophils (%) (Auto) % (45.0-75.0) Lymphocytes (%) (Auto) % (20.0-45.0) Monocytes (%) (Auto) % (1.0-10.0) Eosinophils (%) (Auto) % (0.0-3.0) Basophils (%) (Auto) % (0.0-2.0) Differential Total Cells Counted 100 Neutrophils % (Manual) 91 % (45-75) H Lymphocytes % (Manual) 5 % (20-45) L Monocytes % (Manual) 3 % (1-10) Eosinophils % (Manual) 1 % (0-3) Basophils % (Manual) 0 % (0-2) Band Neutrophils 0 % (0-8) Platelet Estimate Adequate Platelet Morphology Normal Anisocytosis 1+ Sodium Level 142 MMOL/L (136-145) Potassium Level 3.9 MMOL/L (3.5-5.1) Chloride Level 110 MMOL/L (98-107) H Carbon Dioxide Level 16 MMOL/L (21-32) L Anion Gap 16 mmol/L (5-15) H Blood Urea Nitrogen 29 mg/dL (7-18) H Creatinine 1.3 MG/DL (0.55-1.30) Estimat Glomerular Filtration Rate 55.2 mL/min (>60) Glucose Level 105 MG/DL (74-106) Calcium Level 7.9 MG/DL (8.5-10.1) L Total Bilirubin 0.3 MG/DL (0.2-1.0) Aspartate Amino Transf (AST/SGOT) 23 U/L (15-37) Alanine Aminotransferase (ALT/SGPT) 17 U/L (12-78) Alkaline Phosphatase 75 U/L (46-116) Total Protein 6.2 G/DL (6.4-8.2) L Albumin 1.4 G/DL (3.4-5.0) L Globulin 4.8 g/dL Albumin/Globulin Ratio 0.3 (1.0-2.7) L Random Vancomycin Level 11.6 ug/mL Plan Problems: (1) Tracheostomy in place Assessment & Plan: A dense retrocardiac opacification demonstrated with silhouetting of the left hemidiaphragm appearing worse than on the prior occasion. This was seen to some extent on the prior occasion. Heart size is normal. Lung volumes are low. Tracheostomy is noted. Bones are osteopenic. IMPRESSION: Retrocardiac density. Consider pneumonia although the finding was present to some extent on the prior occasion indicating a part of this may be chronic. Correlate clinically. Tracheostomy (2) Fever (3) Chronic respiratory failure (4) Vegetative state (5) Sepsis Assessment & Plan: Patient admitted with sepsis fevers, tachycardia, leukocytosis, abnormal labs, renal insufficiency. Antibiotics as per infectious disease Patient identified to have multiple wounds on admission some foul-smelling and malodorous with drainage. Wound evaluated bedside no acute active infection identified and source of sepsis unlikely from patient's wounds. Patient has chronic stage IV sacral decubitus ulcer with necrotic tissue and slough and eschar. No purulent drainage. Foul odor likely from incontinence. We will continue to follow with recommendations Orders placed Thank you for let me participate in patient's care (6) MDRO (multiple drug resistant organisms) resistance (7) Feeding by G-tube Assessment & Plan: DAILY ESTIMATED NEEDS: Needs based on Critical care, wound/ 63.4kg abw 25-30 kcals/kg 5131-5889 total kcals 1.5-2 g protein/kg 95-127 g total protein 25-30 mL/kg 7452-4154 total fluid mLs NUTRITION DIAGNOSIS: (1) Swallowing difficulty R/T respiratory status as evidenced by pt trach-vent dep, on GT feeding. (2) Increased kcal/pro needs R/T wound healing as evidenced by pt admitted w/ advanced wounds, pending eval CURRENT TF:Glucerna 1.5 @ 30ml/hr x 22 hrs ENTERAL NUTRITION RECOMMENDATIONS: Glucerna 1.5 @ 55ml/hr x 22 hrs to provide 1210ml, 1815kcal, 100g prot, 918ml free water * Increase goal rate to 55ml/hr x 22 hrs * Hold 1 hour before and after Synthroid administration * HOB over 30 degrees/ water flush per MD ADDITIONAL RECOMMENDATIONS: * Per SNF: HT=64" GT=686nss (as of 07/30/19) * Wound healing: add Vit C 500mg BID add Dong 1pkt BID (mix w/ 4oz water) * Monitor lytes, replete as needed * Add NISS: h/o DM, on TF (8) Low grade fever (9) Severe anoxic-ischemic encephalopathy (10) Seizure disorder as sequela of cerebrovascular accident (11) Stage 4 skin ulcer of sacral region Assessment & Plan: Pt presented on admission with contractures and multiple pressure injuries. Full thickness pressure injury occipital. Base of wound is 40% necrotic with surrounding scattered slough and erythema. Small amt serous exudate. No odor noted. Edges are macerated and dark with surrounding erythema and denuded skin. (L)5.1cm x (W)8.2cm. Skin folds of neck very moist but no evidence of skin breakdown noted under collar of trach. Full thickness sacral pressure injury with undermined borders.(L)4.5cm x (W) 4.5cm x (D)1.5cm,undermining clockwise 3-11 by 1.3cm @3o'clock. Base of wound is 75% necrotic, 25% mixed slough and erythema. Wound is malodorous. Bone is visible at base of wound.Small amt seropurulent exudate noted. Non-blanching erythema without induration periwound. Resolving pressure injury lateral R tibia . scattered dry eschar with surrounding pink epithelial noted .Periwound without erythema or induration(L) 5cm x (W)0.9cm. Distal aspect of R foot is dusky. R 1st metatarsal is 75% necrotic,25% moist erythema.Oozing small amt haemopurulent exudate.Wound is malodorous. Borders are macerated(L)5.3cm x (W)4cm. R 2nd ,3rd,4th and 5th metatarsals noted to have dry eschar dorsally. Stable dry eschar dorsal R foot (L)0.4cm x (W)2.6cm. scattered dry scabs noted to [place] upper L thigh. No erythema noted at site. Lateral L foot extending to L 5th metatarsal head including plantar aspect is 90 % necrotic, with areas of fluctuance within base.5% surrounding moist erythema.Edges adherent to base of base of wound. Mild odor noted (L)4cm x (W) 14.5cm. Resolving pressure injury L lateral malleolus. Moist erythema with surrounding dry pink epithelial noted.(L)1cm x (W)0.8cm. Periwound without erythema or fluctuance. Both heels are boggy with scattered areas of hyperpigmentation from previous wounds. Tx.Plan: Cleanse wound Occipital with Dakin's 0.125% carlos a. Apply Dakin's Moistened Gauze. Cover with Optifoam drsg Daily and prn. Cleanse Sacral wound with Dakin's 0.125% carlos a.Loosely pack with Dakin's moistened kerlix. Apply Moisture Barrier Paste periwound. Cover with Optifoam drsg Daily and prn. Cleanse R 1st metatarsal with Dakin's 0.125% carlos a. Apply Dakin's moistened 2x2 Gauze. Apply Cavilon Skin Barrier periwound.Cover with ABD. Wrap with Kerlix Daily and prn. Swab Dorsal Aspects of R 2nd,3rd,4th and 5th metatarsals with Betadine Daily and prn. Cleanse wound lateral L foot with Dakin's 0.125% carlos a. Apply Dakin's moist gauze. Apply Cavilon Periwound. Cover with ABD pad and wrap with Kerlix Daily and prn. Apply Cavilon Skin Barrier to both heels. Cover each heel with Optifoam drsg. Change every 7 days and prn. Cover lateral R tibia with Optifoam drsg. Change every 7 days and prn. Air fluidized mattress. Reposition at least every 2hours or as tolerated. Place pillow between knees . Place pillow behind knees to off-load heels. Position head to side to relieve pressure off Occipital wound. Evens Kaur Aug 21, 2019 14:33
[2019-08-21 16:00] VITALS: BP 115/59
--- NOTE | 2019-08-21 16:27 | NUR ---
CASE MANAGEMENT: REVIEW 08/21/2019 SI:SEPSIS. T 99.6 HR 79 RR 15 B/P 99/61 SATS 100% ON MECH VENT LABS: CL 110 CO2 16 BUN 29 CA 7.9 IS:NS @ 100 mL/HR KEPPRA GT Q12H PROTONIX PO Q12H VENOFER IV QHS TENORMIN GT BID GENTAMYCIN INH Q12H VANCO IV Q24H SDU PLAN OF CARE: WOUND CARE TF IV ANTIBX
--- NOTE | 2019-08-21 16:45 | Consultation ---
DATE OF CONSULTATION: 08/21/2019 INFECTIOUS DISEASE CONSULTATION CONSULTING PHYSICIAN: Indigo Harris M.D. REFERRING PHYSICIAN: Amadeo Pleitez M.D. REASON FOR CONSULTATION: Pneumonia. HISTORY OF PRESENT ILLNESS: This is a 68-year-old gentleman with history of developmental delay, respiratory failure, seizures, and GERD, who was transferred from a snf facility with fever and leukocytosis, and Infectious Disease consultation has been obtained for pneumonia. PAST MEDICAL HISTORY: 1. History of developmental delay. 2. Respiratory failure, status post tracheostomy. 3. GERD. 4. Seizures. 5. Status post G-tube placement. SOCIAL HISTORY: No history of smoking, alcohol, or drug use. FAMILY HISTORY: Unknown. REVIEW OF SYSTEMS: Unable to obtain currently. MEDICATIONS: As an inpatient, the patient is on iron sucrose, Protonix, IV vancomycin, Zosyn, docusate, levothyroxine, ascorbic acid, Tylenol, senna, atenolol, Keppra, subcutaneous heparin, and albuterol. ALLERGIES: No known drug allergies. PHYSICAL EXAMINATION: VITAL SIGNS: Temperature 99.6, T-max of 100.7, pulse 86, respiratory rate 22, and blood pressure 99/61. O2 saturation 100%. HEENT: Pupils are equally reactive to light and accommodation. Mouth appears clean without thrush. NECK: Supple. No adenopathy. No JVD. Tracheostomy site is clean CARDIOVASCULAR: Regular rate and rhythm. No murmurs. LUNGS: Clear to auscultation bilaterally. No crackles. No wheezes. ABDOMEN: Soft and nontender. G-tube site appears clean. EXTREMITIES: No cyanosis, no clubbing, no edema. LABORATORY DATA: Sodium 142, potassium 3.9, chloride 110, bicarb 16, BUN 29, creatinine 1.3, glucose 105. Calcium 7.9. Total bilirubin 0.3, AST 23, ALT 17, and alkaline phosphatase 75. Total protein 6.2, albumin 1.4. White count 10.5, hemoglobin 9.1, hematocrit 27.3, MCV 83, platelet count of 240,000. Neutrophils of 91%. White count of 18.6 on 08/18/2019. UA is showing 20 to 30 white cells, 08/18/2019. Sputum culture is growing Pseudomonas susceptible to amikacin and gentamicin, resistant to piperacillin and tazobactam. Rectal swab was positive for VRE. Nasal swab was positive for MRSA. Blood cultures are negative so far. Urine cultures are negative on 08/18/2019. IMAGING: CT abdomen and pelvis showing right UVJ stone with associated mild right-sided hydronephrosis with enlargement of the kidney and perinephric stranding, nonobstructive stones within both kidneys, trace basilar pleural effusion with dense collapse of the left lower lobe. CT of the foot suspected osteomyelitis of the right first interphalangeal joint. CT head showing no bleed, mass effect, or edema. Severe atrophy of the brain, moderate to severe chronic small vessel disease involving the white matter tract. 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 Chest x-ray showing retrocardiac density. ASSESSMENT: This is a 68-year-old gentleman with history of developmental delay, respiratory failure, status post tracheostomy, who comes in and is found to have, 1. Pseudomonas pneumonia. 2. Leukocytosis is improving. 3. Respiratory failure. 4. Developmental delay. 5. Right foot osteomyelitis. 6. Renal stones. PLAN: 1. Continue IV vancomycin. 2. Discontinue Zosyn. 3. We will start the patient on inhaled gentamicin. 4. We will follow up cultures and adjust antibiotics accordingly. 5. The patient will need long-term antibiotics. I would like to thank Dr. Pleitez for this consultation. Indigo Harris M.D. DR: ANGELA JOB#: [id number] CC:
--- NOTE | 2019-08-21 16:53 | NUR ---
*-* INSURANCE *-* ALL AVAILABLE CLINICALS HAVE BEEN FAXED TO: [facility] ph# [phone] fax#[phone] reviews/clinicals & Chelsie Couch ph#[phone] fax# [phone] reviews/clinicals
--- NOTE | 2019-08-21 19:10 | NUR ---
RESPIRATORY NOTE: received pt on current vent settings in no apparent res distress. Pt is vent dependent with trache in place/Trach size portex 7 and is secured via trach tie/ guard. No visible signs of redness of skin irritation around the stoma. Alarms are set and audible. Ambu bag at bedside. Will continue to monitor throughout the night.
--- NOTE | 2019-08-21 19:15 | General Progress Note ---
Assessment/Plan Problem List: (1) Osteomyelitis of ankle or foot, right, acute ICD Codes: M86.171 - Other acute osteomyelitis, right ankle and foot SNOMED: 610247799 (2) Anemia ICD Codes: D64.9 - Anemia, unspecified SNOMED: 683730032 (3) Fever ICD Codes: R50.9 - Fever, unspecified SNOMED: 134200881 (4) Tracheostomy in place ICD Codes: Z93.0 - Tracheostomy status SNOMED: 975624437 (5) Chronic respiratory failure ICD Codes: J96.10 - Chronic respiratory failure, unspecified whether with hypoxia or hypercapnia SNOMED: 88116987 (6) Vegetative state ICD Codes: R40.3 - Persistent vegetative state SNOMED: 65186686, 939171274 (7) MDRO (multiple drug resistant organisms) resistance ICD Codes: Z16.35 - Resistance to multiple antimicrobial drugs SNOMED: 809270236 (8) Feeding by G-tube ICD Codes: Z93.1 - Gastrostomy status SNOMED: 480948274, 014282262 (9) Severe anoxic-ischemic encephalopathy ICD Codes: G93.1 - Anoxic brain damage, not elsewhere classified; I67.82 - Cerebral ischemia SNOMED: 733130859 (10) Seizure disorder as sequela of cerebrovascular accident ICD Codes: I69.398 - Other sequelae of cerebral infarction; G40.909 - Epilepsy , unspecified, not intractable, without status epilepticus SNOMED: 207366977249548 (11) Stage 4 skin ulcer of sacral region ICD Codes: L98.429 - Non-pressure chronic ulcer of back with unspecified severity SNOMED: 84896456, 530387947 (12) Sepsis ICD Codes: A41.9 - Sepsis, unspecified organism SNOMED: 27949503 Status: stable, not improved Assessment/Plan: cont iv abx per id follow up cultures vent support resp rx suctioning monitor h/h monitor for bleeding stool ob eval re hydro wound care eval dvt/stress ulcer prophylaxis Subjective ROS Limited/Unobtainable: No Constitutional: Reports: malaise, weakness HEENT: Reports: no symptoms Cardiovascular: Reports: no symptoms Respiratory: Reports: cough, shortness of breath, SOB with excertion, sputum Gastrointestinal/Abdominal: Reports: difficulty swallowing Genitourinary: Reports: no symptoms Neurologic/Psychiatric: Reports: pre-existing deficit, seizure Endocrine: Reports: no symptoms Hematologic/Lymphatic: Reports: anemia Allergies: Coded Allergies: No Known Allergies (Unverified , 12/13/16) All Systems: reviewed and negative except above Subjective no events. stable on the vent. fevers better. hypotensive last night. better after transfusion and ivf bolus. positive sputum cultures. Objective Last 24 Hour Vital Signs Date Time Temp Pulse Resp B/P (MAP) Pulse Ox O2 Delivery O2 Flow Rate FiO2 08/21/19 17:54 85 115/59 08/21/19 17:04 79 13 28 08/21/19 16:00 Mechanical Ventilator 08/21/19 16:00 99.3 85 20 115/59 (77) 100 08/21/19 16:00 83 08/21/19 16:00 28 08/21/19 14:30 86 20 28 08/21/19 12:41 84 13 28 08/21/19 12:00 85 08/21/19 12:00 98.8 85 16 97/54 (68) 100 08/21/19 12:00 Mechanical Ventilator 08/21/19 12:00 28 08/21/19 10:36 88 18 28 08/21/19 08:53 86 22 28 08/21/19 08:37 79 99/61 08/21/19 08:00 Mechanical Ventilator 08/21/19 08:00 28 08/21/19 08:00 99.6 79 15 99/61 (74) 100 79 08/21/19 08:00 77 08/21/19 07:09 73 15 28 08/21/19 05:15 77 13 28 08/21/19 04:00 83 08/21/19 04:00 Mechanical Ventilator 08/21/19 04:00 28 08/21/19 04:00 98.8 79 15 95/53 (67) 100 08/21/19 02:52 80 13 28 08/21/19 01:02 94 14 28 08/21/19 00:33 98.6 08/21/19 00:00 100.5 96 22 109/53 (71) 100 08/21/19 00:00 90 08/21/19 00:00 28 08/21/19 00:00 Mechanical Ventilator 08/20/19 22:40 87 21 28 08/20/19 21:06 82 16 28 08/20/19 20:00 28 08/20/19 20:00 Mechanical Ventilator 08/20/19 20:00 98.4 76 20 84/53 (63) 100 08/20/19 20:00 77 08/20/19 19:20 80 13 28 Intake and Output 08/20/19 08/21/19 18:59 06:59 Intake Total 1579.917 ml 1507.5 ml Output Total 700 ml Balance 879.917 ml 1507.5 ml Intake Free Water 200 ml 150 ml IV Total 899.917 ml 937.5 ml Tube Feeding 330 ml 420 ml Blood Product 150 ml Output Urine Total 700 ml # Bowel Movements 1 1 Laboratory Tests 08/21/19 04:30: White Blood Count 10.5, Red Blood Count 3.28L, Hemoglobin 9.1#L, Hematocrit 27.3 #L, Mean Corpuscular Volume 83, Mean Corpuscular Hemoglobin 27.8, Mean Corpuscular Hemoglobin Concent 33.4, Red Cell Distribution Width 14.2, Platelet Count 240, Mean Platelet Volume 5.5L, Neutrophils (%) (Auto) , Lymphocytes (%) ( Auto) , Monocytes (%) (Auto) , Eosinophils (%) (Auto) , Basophils (%) (Auto) , Differential Total Cells Counted 100, Neutrophils % (Manual) 91H, Lymphocytes % (Manual) 5L, Monocytes % (Manual) 3, Eosinophils % (Manual) 1, Basophils % ( Manual) 0, Band Neutrophils 0, Platelet Estimate Adequate, Platelet Morphology Normal, Anisocytosis 1+, Sodium Level 142, Potassium Level 3.9, Chloride Level 110H, Carbon Dioxide Level 16L, Anion Gap 16H, Blood Urea Nitrogen 29H, Creatinine 1.3, Estimat Glomerular Filtration Rate 55.2, Glucose Level 105, Calcium Level 7.9L, Total Bilirubin 0.3, Aspartate Amino Transf (AST/SGOT) 23, Alanine Aminotransferase (ALT/SGPT) 17, Alkaline Phosphatase 75, Total Protein 6.2L, Albumin 1.4L, Globulin 4.8, Albumin/Globulin Ratio 0.3L, Random Vancomycin Level 11.6 Height (Feet): 5 Height (Inches): 8.00 Weight (Pounds): 159 General Appearance: WD/WN, lethargic, confused, thin Neck: non-tender, normal alignment, supple, normal inspection Cardiovascular: normal peripheral pulses, normal rate, regular rhythm Respiratory/Chest: chest wall non-tender, lungs clear, normal breath sounds, no respiratory distress, no accessory muscle use Abdomen: normal bowel sounds, non tender, soft, no organomegaly, no mass Edema: no edema noted Arm (L), no edema noted Arm (R), no edema noted Leg (L), no edema noted Leg (R), no edema noted Pedal (L), no edema noted Pedal (R), no edema noted Generalized Neurologic: disoriented, unresponsive, aphasia Skin: other - multiple wounds Amadeo Pleitez MD Aug 21, 2019 19:15
--- NOTE | 2019-08-21 19:15 | NUR ---
HAND-OFF: Report given to JUANJOSE Harrell. Patient in stable condition,.
--- NOTE | 2019-08-21 19:16 | NUR ---
NURSE NOTES: received pt from Loren SOW., . pt is on vent, no SOB noted. O2sat is at 100%. Gtube site clean, intact, and patent, glucerna 1.5 is running at 45cc/hr. pt has condom cath on and no leaking noted. Right hand 22G IV are intact, clean, and patent. pt is resting on the bed and obtunded with open eye spontaneously. call light within reach. bed at the lowest position, alarmed,and locked. will continue to monitor pt with plan of care.
[2019-08-21 20:00] VITALS: BP 99/63
[2019-08-21] MEDS: Tamsulosin 0.4mg cap ORAL SCH (20:59)
[2019-08-21] MEDS: Iron Sucrose 100 MG in NS 55 ML IV SCH (20:59)
--- NOTE | 2019-08-21 21:18 | General Progress Note ---
Assessment/Plan Status: stable, not improved Assessment/Plan: Assessment - acute on chronic anemia - chronic resp failure / trach - encephalopathy - contractures / decubitus - poor prognosis / not candidate for GI w/u Recommendations - transfuse PRN - IV Iron replacement - PPI - TF - Wound care - supportive measures - address code status Subjective Allergies: Coded Allergies: No Known Allergies (Unverified , 12/13/16) Subjective Obtunde, non verbal tolerating TF Objective Last 24 Hour Vital Signs Date Time Temp Pulse Resp B/P (MAP) Pulse Ox O2 Delivery O2 Flow Rate FiO2 08/21/19 21:10 80 16 28 08/21/19 20:00 97.3 83 15 99/63 (75) 100 08/21/19 20:00 Mechanical Ventilator 08/21/19 20:00 28 08/21/19 19:08 85 18 28 08/21/19 17:54 85 115/59 08/21/19 17:04 79 13 28 08/21/19 16:00 Mechanical Ventilator 08/21/19 16:00 99.3 85 20 115/59 (77) 100 08/21/19 16:00 83 08/21/19 16:00 28 08/21/19 14:30 86 20 28 08/21/19 12:41 84 13 08/21/19 12:00 85 08/21/19 12:00 98.8 85 16 97/54 (68) 100 08/21/19 12:00 Mechanical Ventilator 08/21/19 12:00 28 08/21/19 10:36 88 18 28 08/21/19 08:53 86 22 28 08/21/19 08:37 79 99/61 08/21/19 08:00 Mechanical Ventilator 08/21/19 08:00 28 08/21/19 08:00 99.6 79 15 99/61 (74) 100 79 08/21/19 08:00 77 08/21/19 07:09 73 15 28 08/21/19 05:15 77 13 28 08/21/19 04:00 83 08/21/19 04:00 Mechanical Ventilator 08/21/19 04:00 28 08/21/19 04:00 98.8 79 15 95/53 (67) 100 08/21/19 02:52 80 13 08/21/19 01:02 94 14 28 08/21/19 00:33 98.6 08/21/19 00:00 100.5 96 22 109/53 (71) 100 08/21/19 00:00 90 08/21/19 00:00 28 08/21/19 00:00 Mechanical Ventilator 08/20/19 22:40 87 21 28 Intake and Output 08/20/19 08/21/19 19:00 07:00 Intake Total 1492.5 ml 1577.5 ml Output Total 700 ml 400 ml Balance 792.5 ml 1177.5 ml Intake Free Water 200 ml 150 ml IV Total 782.5 ml 997.5 ml Tube Feeding 360 ml 430 ml Blood Product 150 ml Output Urine Total 700 ml 400 ml # Voids 2 # Bowel Movements 1 2 Laboratory Tests 08/21/19 04:30: White Blood Count 10.5, Red Blood Count 3.28L, Hemoglobin 9.1#L, Hematocrit 27.3 #L, Mean Corpuscular Volume 83, Mean Corpuscular Hemoglobin 27.8, Mean Corpuscular Hemoglobin Concent 33.4, Red Cell Distribution Width 14.2, Platelet Count 240, Mean Platelet Volume 5.5L, Neutrophils (%) (Auto) , Lymphocytes (%) ( Auto) , Monocytes (%) (Auto) , Eosinophils (%) (Auto) , Basophils (%) (Auto) , Differential Total Cells Counted 100, Neutrophils % (Manual) 91H, Lymphocytes % (Manual) 5L, Monocytes % (Manual) 3, Eosinophils % (Manual) 1, Basophils % ( Manual) 0, Band Neutrophils 0, Platelet Estimate Adequate, Platelet Morphology Normal, Anisocytosis 1+, Sodium Level 142, Potassium Level 3.9, Chloride Level 110H, Carbon Dioxide Level 16L, Anion Gap 16H, Blood Urea Nitrogen 29H, Creatinine 1.3, Estimat Glomerular Filtration Rate 55.2, Glucose Level 105, Calcium Level 7.9L, Total Bilirubin 0.3, Aspartate Amino Transf (AST/SGOT) 23, Alanine Aminotransferase (ALT/SGPT) 17, Alkaline Phosphatase 75, Total Protein 6.2L, Albumin 1.4L, Globulin 4.8, Albumin/Globulin Ratio 0.3L, Random Vancomycin Level 11.6 Height (Feet): 5 Height (Inches): 8.00 Weight (Pounds): 159 Objective Debilitated WM, contracted NCAT (+) trach coarse Ronchi RR abd soft, GT (++) contracures Ted Rivero MD Aug 21, 2019 21:18
--- NOTE | 2019-08-21 22:45 | Consultation ---
DATE OF CONSULTATION: 08/21/2019 CONSULTING PHYSICIAN: Vickey Albrecht M.D. REFERRING PHYSICIAN: Amadeo Pleitez M.D. REASON FOR CONSULTATION: Evaluation of hydronephrosis. HISTORY OF PRESENT ILLNESS: This is an unfortunate 68-year-old male who has multiple medical issues including history of respiratory failure, history of tracheostomy, and he was admitted to the hospital because of fevers. He was noted to have acute kidney injury. He was noted to be anemic. A recent workup including a CT scan which was done a couple of days ago showed hydronephrosis. Urology evaluation requested. The patient is incontinent, has a condom catheter. PAST MEDICAL HISTORY: Significant for above. The patient is basically in a vegetative state, nonverbal, chronic ventilator tracheostomy. He has diabetes, hypertension, hyperlipidemia, and severely contracted. PAST SURGICAL HISTORY: He has a G-tube. Other surgeries are unknown. MEDICATIONS: Current medication list in the hospital was reviewed. He is currently on gentamicin, pantoprazole, levothyroxine, atenolol, Senokot, Keppra, and sodium chloride. ALLERGIES: No known drug allergies. SOCIAL HISTORY: Resident of a assisted. REVIEW OF SYSTEMS: Unable to obtain. PHYSICAL EXAMINATION: GENERAL: An elderly male, nonverbal, on trach, severely contracted. VITAL SIGNS: Temperature 99.3, blood pressure 115/59. HEENT: Tracheostomy in place. ABDOMEN: G-tube is in place. GENITOURINARY: Condom catheter in place. Urine is grossly yellow. EXTREMITIES: Lower extremities are severely contracted. LABORATORY DATA: White count is 10.5. He did have a white count of 18.6 on admission. Hemoglobin is 9.1 post transfusion, platelets 240,000. BUN is 29, creatinine 1.3. His creatinine was up to 1.8 on admission. UA showed 10 to 15 rbc's, 20 to 30 wbc's, few bacteria. His urine culture is negative. DIAGNOSTIC IMAGING STUDIES: The patient had a CT scan of abdomen and pelvis. There was mention of multiple nonobstructive renal calculi and a 7 mm right UVJ calculus with mild right hydronephrosis, enlargement of the right kidney. IMPRESSION: 1. Right UVJ calculus. 2. Mild hydronephrosis. 3. Acute kidney injury, which is better. 4. Hematuria. 5. Pyuria. 6. Urinary incontinence. 7. Probable neurogenic bladder. PLAN AND DISCUSSION: Given the patient does have a stone in the right ureter with mild hydro, it is did difficult to tell if the patient has any flank pain, but he looks comfortable. It maybe that this stone has been there for a chronic time period. He did have acute kidney injury, which is better. His white count is better. I would recommend conservative management. I will add Flomax to see if this will help pass the stone. If any intervention is required, he will need to have a nephrostomy placed as he is severely contracted and I do not believe that it is possible to do cystoscopy on this patient, and any further recommendations will be forthcoming. Thank you for this consultation. Vickey Albrecht M.D. DR: JACKI JOB#: [id number] CC:
[2019-08-22] VITALS: BP 100/61
--- NOTE | 2019-08-22 | NUR ---
NURSE NOTES: provided new gown, new pillow cases, and oral care. repositioned pt Q2hrs. changed Gtube dressing and no infection or leaking noted. no SOB noted at this moment. call light within reach.
--- NOTE | 2019-08-22 00:15 | Progress Note ---
DATE: 08/21/2019 CARDIOLOGY PROGRESS NOTE SUBJECTIVE: The patient is on ventilator support. Noncommunicative. Blood pressure parameters are better, but he was hypotensive last evening. Monitor is sinus with atrial ectopy. PHYSICAL EXAMINATION: VITAL SIGNS: Blood pressure 97/54, pulse 85, and respirations 16. Afebrile. LUNGS: Bilateral breath sounds. Rhonchi. Thick trach secretions. CARDIOVASCULAR: Regular rhythm and rate. Normal S1, S2. ABDOMEN: Soft. G-tube intact. EXTREMITIES: No edema. LABORATORY DATA: Sputum is Pseudomonas. White count 10 and hemoglobin 9. Sodium 142, potassium 3.9, bicarb 16, BUN 29, and creatinine 1.3. Albumin 1.4. IMPRESSION: 1. Pseudomonas pneumonia, healthcare-associated pneumonia, respiratory failure with chronic tracheostomy and ventilator dependence, severe protein-calorie malnutrition, sepsis with shock, hyponatremia resolved. 2. Severe protein-calorie malnutrition. 3. Iron deficiency with anemia. 4. Acute on chronic diastolic congestive heart failure, clinically compensated and reflected by elevated natriuretic peptide assay. PLAN: 1. Antimicrobials. 2. Ventilator support. 3. DVT prophylaxis. 4. Protein supplement by feeding tube. 5. Iron replacement. 6. Cautious use of beta-suze. 7. Discontinue IV fluids. 8. Trend natriuretic peptide assay. Kyaw Gonzalez M.D. DR: ESE JOB#: [id number] CC:
[2019-08-22] MEDS: Gentamicin for inhalation INH SCH ×3 (01:19→21:07)
--- NOTE | 2019-08-22 01:50 | NUR ---
NURSE NOTES: collected Stool of OB stool test.
[2019-08-22 04:00] VITALS: BP 109/64
[2019-08-22 04:30] LABS: BASOPHILS % (AUTO) 0.5 % (0.0-2.0); EOSINOPHILS % (AUTO) 0.7 % (0.0-3.0); HEMATOCRIT 28.4 % (42.0-52.0); HEMOGLOBIN 9.2 G/DL (14.2-18.0); LYMPHOCYTES % (AUTO) 10.6 % (20.0-45.0); MEAN CORPUSCULAR VOLUME 84 FL (80-99); MONOCYTES % (AUTO) 7.5 % (1.0-10.0); NEUTROPHILS % (AUTO) 80.8 % (45.0-75.0); PLATELET COUNT 254 K/UL (150-450); RED BLOOD COUNT 3.38 M/UL (4.70-6.10); RED CELL DISTRIBUTION WIDTH 14.3 % (11.6-14.8); WHITE BLOOD COUNT 9.2 K/UL (4.8-10.8)
[2019-08-22 04:57] LABS: ALANINE AMINOTRANSFERASE 14 U/L (12-78); ALBUMIN 1.4 G/DL (3.4-5.0); ALBUMIN/GLOBULIN RATIO 0.3 (1.0-2.7); ALKALINE PHOSPHATASE 70 U/L (46-116); ANION GAP 14 mmol/L (5-15); ASPARTATE AMINO TRANSFERASE 18 U/L (15-37); BILIRUBIN,TOTAL 0.2 MG/DL (0.2-1.0); BLOOD UREA NITROGEN 25 mg/dL (7-18); CALCIUM 7.8 MG/DL (8.5-10.1); CARBON DIOXIDE 17 MMOL/L (21-32); CHLORIDE 113 MMOL/L (98-107); CREATININE 1.1 MG/DL (0.55-1.30); POTASSIUM 4.4 MMOL/L (3.5-5.1); SODIUM 144 MMOL/L (136-145)
[2019-08-22] MEDS: LEVOTHYROXINE SODIUM 250 MCG GT SCH ×2 (05:52)
--- NOTE | 2019-08-22 07:15 | NUR ---
HAND-OFF: Report given to Loren SOW. pt remains stable condition, no SOB noted.
--- NOTE | 2019-08-22 07:20 | NUR ---
NURSE NOTES: Received patient from JUANJOSE Harrell. Patient is obtunded and nonverbal. Patient is contracted bilateral upper extremities and bilateral lower extremities. Patient is on mechanical ventilator Portex 7 AC:12, TV:600, Fio2: 28%, and Peep:5 tolerating well with SPO2: 100%/ Patient is SR on library monitor. Patient has a GT tube running Glucerna 1.5 at 45ml/hr and patent and flushing properly. Patient has a Right hand 22g flushing and patent and saline locked. Patient has a condom catheter and draining yellow urine. Bed is in lowest position, alarmed and locked. Optimal HOB placement. Call light is within reach. Will continue to monitor.
--- NOTE | 2019-08-22 07:30 | NUR ---
RESPIRATORY NOTE: Patient received mechanically ventilated on PB 840 with current ordered vent settings. Patient has trach size 7.0 Portex cuffed that is secured with trach tie and guard. Vent alarms are functional and audible. The vent is connected to a red outlet. There is an ambu bag and spare trach available at the bedside. The patient appears comfortable at this time. Will continue to monitor.
[2019-08-22 08:00] VITALS: BP 100/64
[2019-08-22] MEDS: Atenolol 25mg tab GT SCH ×2 (09:00→17:57)
[2019-08-22] MEDS: Docusate 100mg/10ml Liq GT SCH (09:00)
[2019-08-22] MEDS: Sennosides 8.6mg tab GT SCH (09:00)
--- NOTE | 2019-08-22 09:23 | Urology Progress Note ---
Assessment/Plan Status: stable, not improved Assessment/Plan: 1. Right UVJ calculus. 2. Mild hydronephrosis. 3. Acute kidney injury, which is better. 4. Hematuria. 5. Pyuria. 6. Urinary incontinence. 7. Probable neurogenic bladder. monitor clinically flomax added abx as ordered consider nephrostomy monitor renal fxn Subjective Allergies: Coded Allergies: No Known Allergies (Unverified , 12/13/16) Subjective all noted, looks comfortable Objective Last 24 Hour Vital Signs Date Time Temp Pulse Resp B/P (MAP) Pulse Ox O2 Delivery O2 Flow Rate FiO2 08/22/19 08:00 99.2 81 13 100/64 (76) 99 08/22/19 07:27 78 15 28 08/22/19 05:27 78 15 28 08/22/19 04:00 99.7 85 18 109/64 (79) 99 08/22/19 04:00 28 08/22/19 04:00 Mechanical Ventilator 08/22/19 03:53 84 08/22/19 03:10 85 17 28 08/22/19 01:19 78 18 100 Mechanical Ventilator 28 78 18 28 08/22/19 00:00 98.7 80 18 100/61 (74) 100 08/22/19 00:00 Mechanical Ventilator 08/21/19 23:54 81 08/21/19 23:02 79 15 28 08/21/19 21:10 80 16 28 08/21/19 20:00 97.3 83 15 99/63 (75) 100 08/21/19 20:00 Mechanical Ventilator 08/21/19 20:00 28 08/21/19 19:57 81 08/21/19 19:08 85 18 28 08/21/19 17:54 85 115/59 08/21/19 17:04 79 13 28 08/21/19 16:00 Mechanical Ventilator 08/21/19 16:00 99.3 85 20 115/59 (77) 100 08/21/19 16:00 83 08/21/19 16:00 28 08/21/19 14:30 86 20 28 08/21/19 12:41 84 13 28 08/21/19 12:00 85 08/21/19 12:00 98.8 85 16 97/54 (68) 100 08/21/19 12:00 Mechanical Ventilator 08/21/19 12:00 28 08/21/19 10:36 88 18 28 Intake and Output 08/21/19 08/22/19 19:00 07:00 Intake Total 615 ml 655 ml Output Total 600 ml Balance 15 ml 655 ml Intake Free Water 50 ml IV Total 60 ml Tube Feeding 515 ml 495 ml Other 50 ml 100 ml Output Urine Total 600 ml # Voids 4 # Bowel Movements 4 3 Microbiology Date/Time Source Procedure Growth Status 08/18/19 16:00 Blood Blood Culture - Preliminary NO GROWTH AFTER 72 HOURS Resulted 08/18/19 20:00 Sputum Gram Stain - Final Complete 08/18/19 20:00 Sputum Culture - Final Pseudomonas Aeruginosa - Mdr Usual Respiratory Mira Complete 08/18/19 15:00 Urine,Clean Catch Urine Culture - Final NO GROWTH AFTER 48 HOURS Complete 08/18/19 18:00 Rectum VRE Culture - Final Enterococcus Faecalis - Vre Complete Current Medications Medications (Trade) Dose Ordered Sig/Dolly Route PRN Reason Start Time Stop Time Status Last Admin Dose Admin Acetaminophen (Tylenol) 650 mg Q4H PRN GT Mild Pain/Temp > 100.5 08/19/19 14:15 09/18/19 14:14 08/21/19 00:03 Albuterol Sulfate (Proventil) 2.5 mg Q6H PRN HHN Shortness of Breath 08/18/19 20:00 08/23/19 19:59 Ascorbic Acid (Vitamin C) 500 mg TWICE A DAY GT 08/19/19 18:00 09/18/19 17:59 08/21/19 17:53 Atenolol (Tenormin) 12.5 mg BID GT 08/19/19 09:00 09/18/19 08:59 08/21/19 17:54 Docusate Sodium (Colace) 100 mg DAILY GT 08/20/19 09:00 09/19/19 08:59 08/21/19 08:31 Gentamicin Sulfate (Gentamicin vial) 300 mg Q12HR@10,22 INH 08/21/19 22:00 08/28/19 21:59 08/22/19 01:19 Heparin Sodium (Porcine) (Heparin 5000 units/ml) 5,000 units EVERY 12 HOURS SUBQ 08/18/19 21:00 09/17/19 20:59 08/21/19 21:00 Iron Sucrose 100 mg/Sodium Chloride 60 ml @ 240 mls/hr BEDTIME IV 08/21/19 21:00 08/25/19 21:14 08/21/19 20:59 Levetiracetam (Keppra) 500 mg EVERY 12 HOURS GT 08/18/19 21:00 09/17/19 20:59 08/21/19 20:59 Levothyroxine Sodium (Synthroid) 250 mcg DAILY@0630 GT 08/20/19 06:30 09/19/19 06:29 08/22/19 05:52 Pantoprazole (Protonix) 40 mg EVERY 12 HOURS ORAL 08/21/19 09:00 09/20/19 08:59 08/21/19 20:59 Sennosides (Senokot) 17.2 mg DAILY GT 08/19/19 09:00 09/18/19 08:59 08/21/19 08:32 Sodium Hypochlorite (Dakin's Quarter Strength) 1 applic DAILY TOPIC 08/20/19 09:00 09/19/19 08:59 08/21/19 08:37 Tamsulosin HCl (Flomax) 0.4 mg BEDTIME ORAL 08/21/19 21:00 09/20/19 20:59 08/21/19 20:59 Vancomycin HCl (Vanco rx to dose) 1 ea DAILY PRN MISC Per rx protocol 08/18/19 20:00 09/17/19 19:59 Vancomycin HCl 500 mg/Sodium Chloride 110 ml @ 110 mls/hr Q24H IVPB 08/21/19 09:00 08/26/19 08:59 08/21/19 09:39 Laboratory Tests 08/22/19 02:00: Stool Occult Blood [Pending] 08/22/19 04:02: White Blood Count 9.2, Red Blood Count 3.38L, Hemoglobin 9.2L, Hematocrit 28.4L , Mean Corpuscular Volume 84, Mean Corpuscular Hemoglobin 27.2, Mean Corpuscular Hemoglobin Concent 32.4, Red Cell Distribution Width 14.3, Platelet Count 254, Mean Platelet Volume 5.1L, Neutrophils (%) (Auto) 80.8H, Lymphocytes (%) (Auto) 10.6L, Monocytes (%) (Auto) 7.5, Eosinophils (%) (Auto) 0.7, Basophils (%) (Auto) 0.5, Sodium Level 144, Potassium Level 4.4, Chloride Level 113H, Carbon Dioxide Level 17L, Anion Gap 14, Blood Urea Nitrogen 25H, Creatinine 1.1, Estimat Glomerular Filtration Rate > 60, Glucose Level 121H, Lactic Acid Level 1.20, Calcium Level 7.8L, Total Bilirubin 0.2, Aspartate Amino Transf (AST/SGOT) 18, Alanine Aminotransferase (ALT/SGPT) 14, Alkaline Phosphatase 70, Pro-B-Type Natriuretic Peptide 7657H, Total Protein 6.3L, Albumin 1.4L, Globulin 4.9, Albumin/Globulin Ratio 0.3L Height (Feet): 5 Height (Inches): 8.00 Weight (Pounds): 159 Objective exam stable condom cath, urine grossly yellow Bamshad,Vickey Moore MD Aug 22, 2019 09:22
[2019-08-22] MEDS: Ascorbic Acid 500mg tab GT SCH ×2 (09:31→17:54)
[2019-08-22] MEDS: Vancomycin 500 MG in NS 110 ML IVPB SCH (09:31)
[2019-08-22] MEDS: Acetaminophen 650mg/20.3ml GT PRN (09:33)
[2019-08-22] MEDS: Dakin's 0.125% Soln (Quarter Strength) 16oz TOPIC SCH (09:35)
[2019-08-22] MEDS: Heparin 5000 units/ml inj SUBQ SCH ×2 (09:35→20:40)
--- NOTE | 2019-08-22 10:15 | Infectious Diseases Prog Note ---
Assessment/Plan Assessment/Plan A: 1. Pseudomonas pneumonia. 2. Leukocytosis is improving. 3. Respiratory failure. 4. Encephalopathy 5. Right foot osteomyelitis. 6. Renal stones. 7. 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 Anemia PLAN: 1. Continue IV vancomycin & inhaled gentamicin. 2. We will follow up cultures and adjust antibiotics accordingly. 3. Wound care Subjective ROS Limited/Unobtainable: Yes Constitutional: Denies: fever Allergies: Coded Allergies: No Known Allergies (Unverified , 12/13/16) Objective Vital Signs Last 24 Hour Vital Signs Date Time Temp Pulse Resp B/P (MAP) Pulse Ox O2 Delivery O2 Flow Rate FiO2 08/22/19 09:00 81 100/64 08/22/19 08:00 99.2 81 13 100/64 (76) 99 08/22/19 07:27 78 15 28 08/22/19 05:27 78 15 28 08/22/19 04:00 99.7 85 18 109/64 (79) 99 08/22/19 04:00 28 08/22/19 04:00 Mechanical Ventilator 08/22/19 03:53 84 08/22/19 03:10 85 17 28 08/22/19 01:19 78 18 100 Mechanical Ventilator 28 78 18 28 08/22/19 00:00 98.7 80 18 100/61 (74) 100 08/22/19 00:00 Mechanical Ventilator 08/21/19 23:54 81 08/21/19 23:02 79 15 28 08/21/19 21:10 80 16 28 08/21/19 20:00 97.3 83 15 99/63 (75) 100 08/21/19 20:00 Mechanical Ventilator 08/21/19 20:00 28 08/21/19 19:57 81 08/21/19 19:08 85 18 28 08/21/19 17:54 85 115/59 08/21/19 17:04 79 13 28 08/21/19 16:00 Mechanical Ventilator 08/21/19 16:00 99.3 85 20 115/59 (77) 100 08/21/19 16:00 83 08/21/19 16:00 28 08/21/19 14:30 86 20 28 08/21/19 12:41 84 13 28 08/21/19 12:00 85 08/21/19 12:00 98.8 85 16 97/54 (68) 100 08/21/19 12:00 Mechanical Ventilator 08/21/19 12:00 28 08/21/19 10:36 88 18 28 Height (Feet): 5 Height (Inches): 8.00 Weight (Pounds): 159 General Appearance: no acute distress HEENT: status post trach Respiratory/Chest: lungs clear, other - on ventilator Cardiovascular: normal rate Abdomen: soft, non tender, other - GT feeding Extremities: no edema, other - contractions Skin: ulcers Neurologic/Psychiatric: aphasia Laboratory Tests Test 08/22/19 02:00 08/22/19 04:02 Stool Occult Blood Pending White Blood Count 9.2 K/UL (4.8-10.8) Red Blood Count 3.38 M/UL (4.70-6.10) L Hemoglobin 9.2 G/DL (14.2-18.0) L Hematocrit 28.4 % (42.0-52.0) L Mean Corpuscular Volume 84 FL (80-99) Mean Corpuscular Hemoglobin 27.2 PG (27.0-31.0) Mean Corpuscular Hemoglobin Concent 32.4 G/DL (32.0-36.0) Red Cell Distribution Width 14.3 % (11.6-14.8) Platelet Count 254 K/UL (150-450) Mean Platelet Volume 5.1 FL (6.5-10.1) L Neutrophils (%) (Auto) 80.8 % (45.0-75.0) H Lymphocytes (%) (Auto) 10.6 % (20.0-45.0) L Monocytes (%) (Auto) 7.5 % (1.0-10.0) Eosinophils (%) (Auto) 0.7 % (0.0-3.0) Basophils (%) (Auto) 0.5 % (0.0-2.0) Sodium Level 144 MMOL/L (136-145) Potassium Level 4.4 MMOL/L (3.5-5.1) Chloride Level 113 MMOL/L (98-107) H Carbon Dioxide Level 17 MMOL/L (21-32) L Anion Gap 14 mmol/L (5-15) Blood Urea Nitrogen 25 mg/dL (7-18) H Creatinine 1.1 MG/DL (0.55-1.30) Estimat Glomerular Filtration Rate > 60 mL/min (>60) Glucose Level 121 MG/DL (74-106) H Lactic Acid Level 1.20 mmol/L (0.4-2.0) Calcium Level 7.8 MG/DL (8.5-10.1) L Total Bilirubin 0.2 MG/DL (0.2-1.0) Aspartate Amino Transf (AST/SGOT) 18 U/L (15-37) Alanine Aminotransferase (ALT/SGPT) 14 U/L (12-78) Alkaline Phosphatase 70 U/L (46-116) Pro-B-Type Natriuretic Peptide 7657 pg/mL (0-125) H Total Protein 6.3 G/DL (6.4-8.2) L Albumin 1.4 G/DL (3.4-5.0) L Globulin 4.9 g/dL Albumin/Globulin Ratio 0.3 (1.0-2.7) L Current Medications Medications (Trade) Dose Ordered Sig/Dolly Route PRN Reason Start Time Stop Time Status Last Admin Dose Admin Acetaminophen (Tylenol) 650 mg Q4H PRN GT Mild Pain/Temp > 100.5 08/19/19 14:15 09/18/19 14:14 08/22/19 09:33 Albuterol Sulfate (Proventil) 2.5 mg Q6H PRN HHN Shortness of Breath 08/18/19 20:00 08/23/19 19:59 Ascorbic Acid (Vitamin C) 500 mg TWICE A DAY GT 08/19/19 18:00 09/18/19 17:59 08/22/19 09:31 Atenolol (Tenormin) 12.5 mg BID GT 08/19/19 09:00 09/18/19 08:59 08/21/19 17:54 Docusate Sodium (Colace) 100 mg DAILY GT 08/20/19 09:00 09/19/19 08:59 08/21/19 08:31 Gentamicin Sulfate (Gentamicin vial) 300 mg Q12HR@10,22 INH 08/21/19 22:00 08/28/19 21:59 08/22/19 01:19 Heparin Sodium (Porcine) (Heparin 5000 units/ml) 5,000 units EVERY 12 HOURS SUBQ 08/18/19 21:00 09/17/19 20:59 08/22/19 09:35 Iron Sucrose 100 mg/Sodium Chloride 60 ml @ 240 mls/hr BEDTIME IV 08/21/19 21:00 08/25/19 21:14 08/21/19 20:59 Levetiracetam (Keppra) 500 mg EVERY 12 HOURS GT 08/18/19 21:00 09/17/19 20:59 08/22/19 09:30 Levothyroxine Sodium (Synthroid) 250 mcg DAILY@0630 GT 08/20/19 06:30 09/19/19 06:29 08/22/19 05:52 Pantoprazole (Protonix) 40 mg EVERY 12 HOURS ORAL 08/21/19 09:00 09/20/19 08:59 08/22/19 09:31 Sennosides (Senokot) 17.2 mg DAILY GT 08/19/19 09:00 09/18/19 08:59 08/21/19 08:32 Sodium Hypochlorite (Dakin's Quarter Strength) 1 applic DAILY TOPIC 08/20/19 09:00 09/19/19 08:59 08/22/19 09:35 Tamsulosin HCl (Flomax) 0.4 mg BEDTIME ORAL 08/21/19 21:00 09/20/19 20:59 08/21/19 20:59 Vancomycin HCl (Vanco rx to dose) 1 ea DAILY PRN MISC Per rx protocol 08/18/19 20:00 09/17/19 19:59 Vancomycin HCl 500 mg/Sodium Chloride 110 ml @ 110 mls/hr Q24H IVPB 08/21/19 09:00 08/26/19 08:59 08/22/19 09:31 Erlin Lion MD Aug 22, 2019 10:15
--- NOTE | 2019-08-22 10:26 | Pulmonology Progress Note ---
Assessment/Plan Assessment/Plan trach vent dependent respiratory failure seizure disorder possible sepsis chronic encephalopathy PLAN vent support antibiotics noted monitor HH feeds off load monitor labs for change ID follow up and recommendations impression, plan, and exam edited and reviewed in detail care discussed with RN Subjective ROS Limited/Unobtainable: Yes Allergies: Coded Allergies: No Known Allergies (Unverified , 12/13/16) Subjective care noted on vent s/p transfusion Objective Last 24 Hour Vital Signs Date Time Temp Pulse Resp B/P (MAP) Pulse Ox O2 Delivery O2 Flow Rate FiO2 08/22/19 09:00 81 100/64 08/22/19 08:00 99.2 81 13 100/64 (76) 99 08/22/19 07:27 78 15 28 08/22/19 05:27 78 15 28 08/22/19 04:00 99.7 85 18 109/64 (79) 99 08/22/19 04:00 28 08/22/19 04:00 Mechanical Ventilator 08/22/19 03:53 84 08/22/19 03:10 85 17 28 08/22/19 01:19 78 18 100 Mechanical Ventilator 28 78 18 28 08/22/19 00:00 98.7 80 18 100/61 (74) 100 08/22/19 00:00 Mechanical Ventilator 08/21/19 23:54 81 08/21/19 23:02 79 15 28 08/21/19 21:10 80 16 28 08/21/19 20:00 97.3 83 15 99/63 (75) 100 08/21/19 20:00 Mechanical Ventilator 08/21/19 20:00 28 08/21/19 19:57 81 08/21/19 19:08 85 18 28 08/21/19 17:54 85 115/59 08/21/19 17:04 79 13 28 08/21/19 16:00 Mechanical Ventilator 08/21/19 16:00 99.3 85 20 115/59 (77) 100 08/21/19 16:00 83 08/21/19 16:00 28 08/21/19 14:30 86 20 28 08/21/19 12:41 84 13 28 08/21/19 12:00 85 08/21/19 12:00 98.8 85 16 97/54 (68) 100 08/21/19 12:00 Mechanical Ventilator 08/21/19 12:00 28 08/21/19 10:36 88 18 28 Intake and Output 08/21/19 08/22/19 19:00 07:00 Intake Total 615 ml 655 ml Output Total 600 ml Balance 15 ml 655 ml Intake Free Water 50 ml IV Total 60 ml Tube Feeding 515 ml 495 ml Other 50 ml 100 ml Output Urine Total 600 ml # Voids 4 # Bowel Movements 4 3 Objective WDWN NAD trach and GT in place clear breath sounds bilaterally without rhonchi or wheeze [id number] without MRG NABS nontender no HSM no CCE nonfocal contractures Laboratory Tests 08/22/19 02:00: Stool Occult Blood [Pending] 08/22/19 04:02: White Blood Count 9.2, Red Blood Count 3.38L, Hemoglobin 9.2L, Hematocrit 28.4L , Mean Corpuscular Volume 84, Mean Corpuscular Hemoglobin 27.2, Mean Corpuscular Hemoglobin Concent 32.4, Red Cell Distribution Width 14.3, Platelet Count 254, Mean Platelet Volume 5.1L, Neutrophils (%) (Auto) 80.8H, Lymphocytes (%) (Auto) 10.6L, Monocytes (%) (Auto) 7.5, Eosinophils (%) (Auto) 0.7, Basophils (%) (Auto) 0.5, Sodium Level 144, Potassium Level 4.4, Chloride Level 113H, Carbon Dioxide Level 17L, Anion Gap 14, Blood Urea Nitrogen 25H, Creatinine 1.1, Estimat Glomerular Filtration Rate > 60, Glucose Level 121H, Lactic Acid Level 1.20, Calcium Level 7.8L, Total Bilirubin 0.2, Aspartate Amino Transf (AST/SGOT) 18, Alanine Aminotransferase (ALT/SGPT) 14, Alkaline Phosphatase 70, Pro-B-Type Natriuretic Peptide 7657H, Total Protein 6.3L, Albumin 1.4L, Globulin 4.9, Albumin/Globulin Ratio 0.3L Current Medications Medications (Trade) Dose Ordered Sig/Dolly Route PRN Reason Start Time Stop Time Status Last Admin Dose Admin Acetaminophen (Tylenol) 650 mg Q4H PRN GT Mild Pain/Temp > 100.5 08/19/19 14:15 09/18/19 14:14 08/22/19 09:33 Albuterol Sulfate (Proventil) 2.5 mg Q6H PRN HHN Shortness of Breath 08/18/19 20:00 08/23/19 19:59 Ascorbic Acid (Vitamin C) 500 mg TWICE A DAY GT 08/19/19 18:00 09/18/19 17:59 08/22/19 09:31 Atenolol (Tenormin) 12.5 mg BID GT 08/19/19 09:00 09/18/19 08:59 08/21/19 17:54 Docusate Sodium (Colace) 100 mg DAILY GT 08/20/19 09:00 09/19/19 08:59 08/21/19 08:31 Gentamicin Sulfate (Gentamicin vial) 300 mg Q12HR@10,22 INH 08/21/19 22:00 08/28/19 21:59 08/22/19 01:19 Heparin Sodium (Porcine) (Heparin 5000 units/ml) 5,000 units EVERY 12 HOURS SUBQ 08/18/19 21:00 09/17/19 20:59 08/22/19 09:35 Iron Sucrose 100 mg/Sodium Chloride 60 ml @ 240 mls/hr BEDTIME IV 08/21/19 21:00 08/25/19 21:14 08/21/19 20:59 Levetiracetam (Keppra) 500 mg EVERY 12 HOURS GT 08/18/19 21:00 09/17/19 20:59 08/22/19 09:30 Levothyroxine Sodium (Synthroid) 250 mcg DAILY@0630 GT 08/20/19 06:30 09/19/19 06:29 08/22/19 05:52 Pantoprazole (Protonix) 40 mg EVERY 12 HOURS ORAL 08/21/19 09:00 09/20/19 08:59 08/22/19 09:31 Sennosides (Senokot) 17.2 mg DAILY GT 08/19/19 09:00 09/18/19 08:59 08/21/19 08:32 Sodium Hypochlorite (Dakin's Quarter Strength) 1 applic DAILY TOPIC 08/20/19 09:00 09/19/19 08:59 08/22/19 09:35 Tamsulosin HCl (Flomax) 0.4 mg BEDTIME ORAL 08/21/19 21:00 09/20/19 20:59 08/21/19 20:59 Vancomycin HCl (Vanco rx to dose) 1 ea DAILY PRN MISC Per rx protocol 08/18/19 20:00 09/17/19 19:59 Vancomycin HCl 500 mg/Sodium Chloride 110 ml @ 110 mls/hr Q24H IVPB 08/21/19 09:00 08/26/19 08:59 08/22/19 09:31 Cody Bran MD Aug 22, 2019 10:26
--- NOTE | 2019-08-22 10:57 | NUR ---
NURSE NOTES: Called Dr. Pleitez regarding calcium level of 7.8. No new orders at this time.
--- NOTE | 2019-08-22 11:27 | General Progress Note ---
Assessment/Plan Problem List: (1) Osteomyelitis of ankle or foot, right, acute ICD Codes: M86.171 - Other acute osteomyelitis, right ankle and foot SNOMED: 943120665 (2) Anemia ICD Codes: D64.9 - Anemia, unspecified SNOMED: 998657965 (3) Fever ICD Codes: R50.9 - Fever, unspecified SNOMED: 181286802 (4) Tracheostomy in place ICD Codes: Z93.0 - Tracheostomy status SNOMED: 691117404 (5) Chronic respiratory failure ICD Codes: J96.10 - Chronic respiratory failure, unspecified whether with hypoxia or hypercapnia SNOMED: 30367291 (6) Vegetative state ICD Codes: R40.3 - Persistent vegetative state SNOMED: 15247982, 417304369 (7) MDRO (multiple drug resistant organisms) resistance ICD Codes: Z16.35 - Resistance to multiple antimicrobial drugs SNOMED: 344896928 (8) Feeding by G-tube ICD Codes: Z93.1 - Gastrostomy status SNOMED: 295715178, 160420435 (9) Severe anoxic-ischemic encephalopathy ICD Codes: G93.1 - Anoxic brain damage, not elsewhere classified; I67.82 - Cerebral ischemia SNOMED: 086275851 (10) Seizure disorder as sequela of cerebrovascular accident ICD Codes: I69.398 - Other sequelae of cerebral infarction; G40.909 - Epilepsy , unspecified, not intractable, without status epilepticus SNOMED: 372267387836020 (11) Stage 4 skin ulcer of sacral region ICD Codes: L98.429 - Non-pressure chronic ulcer of back with unspecified severity SNOMED: 92002721, 289968421 (12) Sepsis ICD Codes: A41.9 - Sepsis, unspecified organism SNOMED: 02425561 Status: stable, not improved Assessment/Plan: cont iv abx per id follow up cultures vent support resp rx suctioning monitor h/h monitor for bleeding stool ob wound care eval dvt/stress ulcer prophylaxis Subjective ROS Limited/Unobtainable: Yes Constitutional: Reports: malaise, weakness HEENT: Reports: no symptoms Cardiovascular: Reports: edema Respiratory: Reports: shortness of breath, sputum Gastrointestinal/Abdominal: Reports: difficulty swallowing Genitourinary: Reports: no symptoms Neurologic/Psychiatric: Reports: pre-existing deficit, seizure Endocrine: Reports: no symptoms Hematologic/Lymphatic: Reports: anemia Allergies: Coded Allergies: No Known Allergies (Unverified , 12/13/16) All Systems: reviewed and negative except above Subjective no events. stable on the vent. fevers better. wbc trending down. bp stable. better after transfusion and ivf bolus. positive sputum cultures. Objective Last 24 Hour Vital Signs Date Time Temp Pulse Resp B/P (MAP) Pulse Ox O2 Delivery O2 Flow Rate FiO2 08/22/19 10:44 69 12 28 08/22/19 09:20 70 13 28 08/22/19 09:00 81 100/64 08/22/19 08:00 99.2 81 13 100/64 (76) 99 08/22/19 08:00 80 08/22/19 08:00 28 08/22/19 07:27 78 15 28 08/22/19 05:27 78 15 28 08/22/19 04:00 99.7 85 18 109/64 (79) 99 08/22/19 04:00 28 08/22/19 04:00 Mechanical Ventilator 08/22/19 03:53 84 08/22/19 03:10 85 17 28 08/22/19 01:19 78 18 100 Mechanical Ventilator 28 78 18 28 08/22/19 00:00 98.7 80 18 100/61 (74) 100 08/22/19 00:00 Mechanical Ventilator 08/21/19 23:54 81 08/21/19 23:02 79 15 28 08/21/19 21:10 80 16 28 08/21/19 20:00 97.3 83 15 99/63 (75) 100 08/21/19 20:00 Mechanical Ventilator 08/21/19 20:00 28 08/21/19 19:57 81 08/21/19 19:08 85 18 28 08/21/19 17:54 85 115/59 08/21/19 17:04 79 13 28 08/21/19 16:00 Mechanical Ventilator 08/21/19 16:00 99.3 85 20 115/59 (77) 100 08/21/19 16:00 83 08/21/19 16:00 28 08/21/19 14:30 86 20 28 08/21/19 12:41 84 13 28 08/21/19 12:00 85 08/21/19 12:00 98.8 85 16 97/54 (68) 100 08/21/19 12:00 Mechanical Ventilator 08/21/19 12:00 28 Intake and Output 08/21/19 08/22/19 19:00 07:00 Intake Total 615 ml 655 ml Output Total 600 ml Balance 15 ml 655 ml Intake Free Water 50 ml IV Total 60 ml Tube Feeding 515 ml 495 ml Other 50 ml 100 ml Output Urine Total 600 ml # Voids 4 # Bowel Movements 4 3 Laboratory Tests 08/22/19 02:00: Stool Occult Blood [Pending] 08/22/19 04:02: White Blood Count 9.2, Red Blood Count 3.38L, Hemoglobin 9.2L, Hematocrit 28.4L , Mean Corpuscular Volume 84, Mean Corpuscular Hemoglobin 27.2, Mean Corpuscular Hemoglobin Concent 32.4, Red Cell Distribution Width 14.3, Platelet Count 254, Mean Platelet Volume 5.1L, Neutrophils (%) (Auto) 80.8H, Lymphocytes (%) (Auto) 10.6L, Monocytes (%) (Auto) 7.5, Eosinophils (%) (Auto) 0.7, Basophils (%) (Auto) 0.5, Sodium Level 144, Potassium Level 4.4, Chloride Level 113H, Carbon Dioxide Level 17L, Anion Gap 14, Blood Urea Nitrogen 25H, Creatinine 1.1, Estimat Glomerular Filtration Rate > 60, Glucose Level 121H, Lactic Acid Level 1.20, Calcium Level 7.8L, Total Bilirubin 0.2, Aspartate Amino Transf (AST/SGOT) 18, Alanine Aminotransferase (ALT/SGPT) 14, Alkaline Phosphatase 70, Pro-B-Type Natriuretic Peptide 7657H, Total Protein 6.3L, Albumin 1.4L, Globulin 4.9, Albumin/Globulin Ratio 0.3L Height (Feet): 5 Height (Inches): 8.00 Weight (Pounds): 159 Objective General Appearance: WD/WN, lethargic, confused, thin Neck: non-tender, normal alignment, supple, normal inspection Cardiovascular: normal peripheral pulses, normal rate, regular rhythm Respiratory/Chest: chest wall non-tender, lungs clear, normal breath sounds, no respiratory distress, no accessory muscle use Abdomen: normal bowel sounds, non tender, soft, no organomegaly, no mass Edema: no edema noted Arm (L), no edema noted Arm (R), no edema noted Leg (L), no edema noted Leg (R), no edema noted Pedal (L), no edema noted Pedal (R), no edema noted Generalized Neurologic: disoriented, unresponsive, aphasia Skin: other - multiple wounds Amadeo Pleitez MD Aug 22, 2019 11:27
[2019-08-22 12:00] VITALS: BP 96/49
[2019-08-22] MEDS ORDERED: Sterile Water Irrig 1000ml IRRIG ONE (12:27)
[2019-08-22] MEDS ORDERED: NS 275ml ONE (12:27)
[2019-08-22] MEDS ORDERED: Tubing Blood Filter IV ONE (12:27)
[2019-08-22] MEDS ORDERED: Tubing IV Secondary IV ONE (12:27)
--- NOTE | 2019-08-22 14:08 | Surgery Progress Note ---
Surgery Progress Note Subjective Additional Comments no acute events Objective Last 24 Hour Vital Signs Date Time Temp Pulse Resp B/P (MAP) Pulse Ox O2 Delivery O2 Flow Rate FiO2 08/22/19 12:37 62 13 100 Mechanical Ventilator 28 65 12 28 08/22/19 12:00 28 08/22/19 12:00 Mechanical Ventilator 08/22/19 12:00 99.1 70 17 96/49 (65) 97 08/22/19 10:44 69 12 28 08/22/19 09:20 70 13 28 08/22/19 09:00 81 100/64 08/22/19 08:00 99.2 81 13 100/64 (76) 99 08/22/19 08:00 80 08/22/19 08:00 28 08/22/19 08:00 Mechanical Ventilator 08/22/19 07:27 78 15 28 08/22/19 05:27 78 15 28 08/22/19 04:00 99.7 85 18 109/64 (79) 99 08/22/19 04:00 28 08/22/19 04:00 Mechanical Ventilator 08/22/19 03:53 84 08/22/19 03:10 85 17 28 08/22/19 01:19 78 18 100 Mechanical Ventilator 28 78 18 28 08/22/19 00:00 98.7 80 18 100/61 (74) 100 08/22/19 00:00 Mechanical Ventilator 08/21/19 23:54 81 08/21/19 23:02 79 15 28 08/21/19 21:10 80 16 28 08/21/19 20:00 97.3 83 15 99/63 (75) 100 08/21/19 20:00 Mechanical Ventilator 08/21/19 20:00 28 08/21/19 19:57 81 08/21/19 19:08 85 18 28 08/21/19 17:54 85 115/59 08/21/19 17:04 79 13 28 08/21/19 16:00 Mechanical Ventilator 08/21/19 16:00 99.3 85 20 115/59 (77) 100 08/21/19 16:00 83 08/21/19 16:00 28 08/21/19 14:30 86 20 28 I&O Intake and Output 08/21/19 08/22/19 19:00 07:00 Intake Total 615 ml 655 ml Output Total 600 ml Balance 15 ml 655 ml Intake Free Water 50 ml IV Total 60 ml Tube Feeding 515 ml 495 ml Other 50 ml 100 ml Output Urine Total 600 ml # Voids 4 # Bowel Movements 4 3 Dressing: other Wound: other Drains: other Cardiovascular: RSR Respiratory: decreased breath sounds Abdomen: soft, present bowel sounds Extremities: no cyanosis Laboratory Tests Test 08/22/19 02:00 08/22/19 04:02 Stool Occult Blood Pending White Blood Count 9.2 K/UL (4.8-10.8) Red Blood Count 3.38 M/UL (4.70-6.10) L Hemoglobin 9.2 G/DL (14.2-18.0) L Hematocrit 28.4 % (42.0-52.0) L Mean Corpuscular Volume 84 FL (80-99) Mean Corpuscular Hemoglobin 27.2 PG (27.0-31.0) Mean Corpuscular Hemoglobin Concent 32.4 G/DL (32.0-36.0) Red Cell Distribution Width 14.3 % (11.6-14.8) Platelet Count 254 K/UL (150-450) Mean Platelet Volume 5.1 FL (6.5-10.1) L Neutrophils (%) (Auto) 80.8 % (45.0-75.0) H Lymphocytes (%) (Auto) 10.6 % (20.0-45.0) L Monocytes (%) (Auto) 7.5 % (1.0-10.0) Eosinophils (%) (Auto) 0.7 % (0.0-3.0) Basophils (%) (Auto) 0.5 % (0.0-2.0) Sodium Level 144 MMOL/L (136-145) Potassium Level 4.4 MMOL/L (3.5-5.1) Chloride Level 113 MMOL/L (98-107) H Carbon Dioxide Level 17 MMOL/L (21-32) L Anion Gap 14 mmol/L (5-15) Blood Urea Nitrogen 25 mg/dL (7-18) H Creatinine 1.1 MG/DL (0.55-1.30) Estimat Glomerular Filtration Rate > 60 mL/min (>60) Glucose Level 121 MG/DL (74-106) H Lactic Acid Level 1.20 mmol/L (0.4-2.0) Calcium Level 7.8 MG/DL (8.5-10.1) L Total Bilirubin 0.2 MG/DL (0.2-1.0) Aspartate Amino Transf (AST/SGOT) 18 U/L (15-37) Alanine Aminotransferase (ALT/SGPT) 14 U/L (12-78) Alkaline Phosphatase 70 U/L (46-116) Pro-B-Type Natriuretic Peptide 7657 pg/mL (0-125) H Total Protein 6.3 G/DL (6.4-8.2) L Albumin 1.4 G/DL (3.4-5.0) L Globulin 4.9 g/dL Albumin/Globulin Ratio 0.3 (1.0-2.7) L Plan Problems: (1) Tracheostomy in place Assessment & Plan: A dense retrocardiac opacification demonstrated with silhouetting of the left hemidiaphragm appearing worse than on the prior occasion. This was seen to some extent on the prior occasion. Heart size is normal. Lung volumes are low. Tracheostomy is noted. Bones are osteopenic. IMPRESSION: Retrocardiac density. Consider pneumonia although the finding was present to some extent on the prior occasion indicating a part of this may be chronic. Correlate clinically. Tracheostomy (2) Fever (3) Chronic respiratory failure (4) Vegetative state (5) Sepsis Assessment & Plan: Patient admitted with sepsis fevers, tachycardia, leukocytosis, abnormal labs, renal insufficiency. Antibiotics as per infectious disease Patient identified to have multiple wounds on admission some foul-smelling and malodorous with drainage. Wound evaluated bedside no acute active infection identified and source of sepsis unlikely from patient's wounds. Patient has chronic stage IV sacral decubitus ulcer with necrotic tissue and slough and eschar. No purulent drainage. Foul odor likely from incontinence. We will continue to follow with recommendations Orders placed Thank you for let me participate in patient's care (6) MDRO (multiple drug resistant organisms) resistance (7) Feeding by G-tube Assessment & Plan: DAILY ESTIMATED NEEDS: Needs based on Critical care, wound/ 63.4kg abw 25-30 kcals/kg 1416-6856 total kcals 1.5-2 g protein/kg 95-127 g total protein 25-30 mL/kg 2188-6345 total fluid mLs NUTRITION DIAGNOSIS: (1) Swallowing difficulty R/T respiratory status as evidenced by pt trach-vent dep, on GT feeding. (2) Increased kcal/pro needs R/T wound healing as evidenced by pt admitted w/ advanced wounds, pending eval CURRENT TF:Glucerna 1.5 @ 30ml/hr x 22 hrs ENTERAL NUTRITION RECOMMENDATIONS: Glucerna 1.5 @ 55ml/hr x 22 hrs to provide 1210ml, 1815kcal, 100g prot, 918ml free water * Increase goal rate to 55ml/hr x 22 hrs * Hold 1 hour before and after Synthroid administration * HOB over 30 degrees/ water flush per MD ADDITIONAL RECOMMENDATIONS: * Per SNF: HT=64" TQ=149xrm (as of 07/30/19) * Wound healing: add Vit C 500mg BID add Dong 1pkt BID (mix w/ 4oz water) * Monitor lytes, replete as needed * Add NISS: h/o DM, on TF (8) Low grade fever (9) Severe anoxic-ischemic encephalopathy (10) Seizure disorder as sequela of cerebrovascular accident (11) Stage 4 skin ulcer of sacral region Assessment & Plan: Pt presented on admission with contractures and multiple pressure injuries. Full thickness pressure injury occipital. Base of wound is 40% necrotic with surrounding scattered slough and erythema. Small amt serous exudate. No odor noted. Edges are macerated and dark with surrounding erythema and denuded skin. (L)5.1cm x (W)8.2cm. Skin folds of neck very moist but no evidence of skin breakdown noted under collar of trach. Full thickness sacral pressure injury with undermined borders.(L)4.5cm x (W) 4.5cm x (D)1.5cm,undermining clockwise 3-11 by 1.3cm @3o'clock. Base of wound is 75% necrotic, 25% mixed slough and erythema. Wound is malodorous. Bone is visible at base of wound.Small amt seropurulent exudate noted. Non-blanching erythema without induration periwound. Resolving pressure injury lateral R tibia . scattered dry eschar with surrounding pink epithelial noted .Periwound without erythema or induration(L) 5cm x (W)0.9cm. Distal aspect of R foot is dusky. R 1st metatarsal is 75% necrotic,25% moist erythema.Oozing small amt haemopurulent exudate.Wound is malodorous. Borders are macerated(L)5.3cm x (W)4cm. R 2nd ,3rd,4th and 5th metatarsals noted to have dry eschar dorsally. Stable dry eschar dorsal R foot (L)0.4cm x (W)2.6cm. scattered dry scabs noted to madison upper L thigh. No erythema noted at site. Lateral L foot extending to L 5th metatarsal head including plantar aspect is 90 % necrotic, with areas of fluctuance within base.5% surrounding moist erythema.Edges adherent to base of base of wound. Mild odor noted (L)4cm x (W) 14.5cm. Resolving pressure injury L lateral malleolus. Moist erythema with surrounding dry pink epithelial noted.(L)1cm x (W)0.8cm. Periwound without erythema or fluctuance. Both heels are boggy with scattered areas of hyperpigmentation from previous wounds. Tx.Plan: Cleanse wound Occipital with Dakin's 0.125% carlos a. Apply Dakin's Moistened Gauze. Cover with Optifoam drsg Daily and prn. Cleanse Sacral wound with Dakin's 0.125% carlos a.Loosely pack with Dakin's moistened kerlix. Apply Moisture Barrier Paste periwound. Cover with Optifoam drsg Daily and prn. Cleanse R 1st metatarsal with Dakin's 0.125% carlos a. Apply Dakin's moistened 2x2 Gauze. Apply Cavilon Skin Barrier periwound.Cover with ABD. Wrap with Kerlix Daily and prn. Swab Dorsal Aspects of R 2nd,3rd,4th and 5th metatarsals with Betadine Daily and prn. Cleanse wound lateral L foot with Dakin's 0.125% carlos a. Apply Dakin's moist gauze. Apply Cavilon Periwound. Cover with ABD pad and wrap with Kerlix Daily and prn. Apply Cavilon Skin Barrier to both heels. Cover each heel with Optifoam drsg. Change every 7 days and prn. Cover lateral R tibia with Optifoam drsg. Change every 7 days and prn. Air fluidized mattress. Reposition at least every 2hours or as tolerated. Place pillow between knees . Place pillow behind knees to off-load heels. Position head to side to relieve pressure off Occipital wound. Evens Kaur Aug 22, 2019 14:08
--- NOTE | 2019-08-22 14:23 | General Progress Note ---
Assessment/Plan Status: stable, not improved Assessment/Plan: Assessment - acute on chronic anemia - chronic resp failure / trach - encephalopathy - contractures / decubitus - poor prognosis / not candidate for GI w/u Recommendations - transfuse PRN - IV Iron replacement - PPI - TF - Wound care - supportive measures - address code status Subjective Allergies: Coded Allergies: No Known Allergies (Unverified , 12/13/16) Subjective Obtunded, non verbal tolerating TF Objective Last 24 Hour Vital Signs Date Time Temp Pulse Resp B/P (MAP) Pulse Ox O2 Delivery O2 Flow Rate FiO2 08/22/19 12:37 62 13 100 Mechanical Ventilator 28 65 12 28 08/22/19 12:00 28 08/22/19 12:00 Mechanical Ventilator 08/22/19 12:00 99.1 70 17 96/49 (65) 97 08/22/19 10:44 69 12 28 08/22/19 09:20 70 13 28 08/22/19 09:00 81 100/64 08/22/19 08:00 99.2 81 13 100/64 (76) 99 08/22/19 08:00 80 08/22/19 08:00 28 08/22/19 08:00 Mechanical Ventilator 08/22/19 07:27 78 15 28 08/22/19 05:27 78 15 28 08/22/19 04:00 99.7 85 18 109/64 (79) 99 08/22/19 04:00 28 08/22/19 04:00 Mechanical Ventilator 08/22/19 03:53 84 08/22/19 03:10 85 17 28 08/22/19 01:19 78 18 100 Mechanical Ventilator 28 78 18 28 08/22/19 00:00 98.7 80 18 100/61 (74) 100 08/22/19 00:00 Mechanical Ventilator 08/21/19 23:54 81 08/21/19 23:02 79 15 28 08/21/19 21:10 80 16 28 08/21/19 20:00 97.3 83 15 99/63 (75) 100 08/21/19 20:00 Mechanical Ventilator 08/21/19 20:00 28 08/21/19 19:57 81 08/21/19 19:08 85 18 28 08/21/19 17:54 85 115/59 08/21/19 17:04 79 13 28 08/21/19 16:00 Mechanical Ventilator 08/21/19 16:00 99.3 85 20 115/59 (77) 100 08/21/19 16:00 83 08/21/19 16:00 28 08/21/19 14:30 86 20 28 Intake and Output 08/21/19 08/22/19 19:00 07:00 Intake Total 615 ml 655 ml Output Total 600 ml Balance 15 ml 655 ml Intake Free Water 50 ml IV Total 60 ml Tube Feeding 515 ml 495 ml Other 50 ml 100 ml Output Urine Total 600 ml # Voids 4 # Bowel Movements 4 3 Laboratory Tests 08/22/19 02:00: Stool Occult Blood [Pending] 08/22/19 04:02: White Blood Count 9.2, Red Blood Count 3.38L, Hemoglobin 9.2L, Hematocrit 28.4L , Mean Corpuscular Volume 84, Mean Corpuscular Hemoglobin 27.2, Mean Corpuscular Hemoglobin Concent 32.4, Red Cell Distribution Width 14.3, Platelet Count 254, Mean Platelet Volume 5.1L, Neutrophils (%) (Auto) 80.8H, Lymphocytes (%) (Auto) 10.6L, Monocytes (%) (Auto) 7.5, Eosinophils (%) (Auto) 0.7, Basophils (%) (Auto) 0.5, Sodium Level 144, Potassium Level 4.4, Chloride Level 113H, Carbon Dioxide Level 17L, Anion Gap 14, Blood Urea Nitrogen 25H, Creatinine 1.1, Estimat Glomerular Filtration Rate > 60, Glucose Level 121H, Lactic Acid Level 1.20, Calcium Level 7.8L, Total Bilirubin 0.2, Aspartate Amino Transf (AST/SGOT) 18, Alanine Aminotransferase (ALT/SGPT) 14, Alkaline Phosphatase 70, Pro-B-Type Natriuretic Peptide 7657H, Total Protein 6.3L, Albumin 1.4L, Globulin 4.9, Albumin/Globulin Ratio 0.3L Height (Feet): 5 Height (Inches): 8.00 Weight (Pounds): 159 Objective Debilitated WM, contracted NCAT (+) trach coarse Ronchi RR abd soft, GT (++) contracures Ted Rivero MD Aug 22, 2019 14:23
[2019-08-22 16:00] VITALS: BP 97/50
--- NOTE | 2019-08-22 19:00 | NUR ---
RESPIRATORY NOTES: Received patient on vent settings VT 600, RR 12, 38% FIO2, PEEP +5. Patient on Portex 7 tracheostomy, secured with trache ties. Suctioned moderate amount of thick robison secretions Q2 and PRN. Bilateral breath sounds reveal rhonchi in all lung bains. Vent plugged into red outlet. Alarms are on and audible. Will continue to monitor throughout the night.
--- NOTE | 2019-08-22 19:20 | NUR ---
HAND-OFF: Report given to JUANJOSE Bryan. Patient in stable condition.
--- NOTE | 2019-08-22 19:21 | NUR ---
NURSE NOTES: Late entry Received patient from JUANJOSE Bocanegra. Patient is obtunded, vss with no acute distress. Patient is cooperative and clean. Patient is on a sheet combining operator with IV site patent with no infection noted, on Portex 7 AC12 TV 600, Fio2 28%, and PEEP 5. Skin issues noted. G-tube feeding running at goal. Call light in reach, bed at its lowest position, and call light in reach.
[2019-08-22 20:00] VITALS: BP 126/70
[2019-08-22] MEDS: Tamsulosin 0.4mg cap ORAL SCH (20:40)
[2019-08-22] MEDS: Iron Sucrose 100 MG in NS 55 ML IV SCH (20:41)
--- NOTE | 2019-08-22 23:30 | Progress Note ---
DATE: 08/22/2019 CARDIOLOGY PROGRESS NOTE SUBJECTIVE: No new events. Remains on vent, defervesced. Blood pressure parameters and white blood count normalizing. The patient has received a packed red blood cell transfusion. Blood pressure is stabilizing further following fluid challenge. OBJECTIVE: VITAL SIGNS: Blood pressure 100/64, pulse 81, respirations 13, and temperature 99.9 max. HEENT: Thin trach secretions. LUNGS: Bilateral rhonchi. CARDIAC: Regular rhythm and rate. Normal S1, S2. ABDOMEN: Soft. G tube intact. EXTREMITIES: Trace edema. LABORATORY DATA: White count 9.2, hemoglobin 9.2. Potassium 4.4, bicarb 17. Lactic acid 1.2. Pro-natriuretic peptide 7600. BUN 25, creatinine 1.1. IMPRESSION: 1. Healthcare associated pneumonia. 2. Ventilator-dependent respiratory failure. 3. Acute on chronic diastolic and systolic congestive heart failure with elevated natriuretic peptide assay. 4. Metabolic acidosis. 5. Severe protein-calorie malnutrition. PLAN: 1. Ventilator support. 2. Antimicrobials. 3. Nutrition by feeding tube. 4. Discontinue IV fluids. 5. Check radiograph of the chest. 6. Maintain beta-suze reassess for diuresis. Kyaw Gonzalez M.D. DR: CHRISTIANO JOB#: [id number] CC:
[2019-08-23] VITALS (7 sets, daily range): BP systolic 109–131; BP diastolic 64–77
--- NOTE | 2019-08-23 | NUR ---
NURSE NOTES: Patient is sleeping well with no complaints.
--- NOTE | 2019-08-23 04:00 | NUR ---
NURSE NOTES: Patient cleaned and wound care completed.
[2019-08-23] MEDS: LEVOTHYROXINE SODIUM 250 MCG GT SCH ×2 (06:32)
--- NOTE | 2019-08-23 07:11 | General Progress Note ---
Assessment/Plan Status: stable, not improved Assessment/Plan: Assessment - acute on chronic anemia - chronic resp failure / trach - encephalopathy - contractures / decubitus - poor prognosis / not candidate for GI w/u Recommendations - transfuse PRN - IV Iron replacement - PPI - TF - Wound care - supportive measures Subjective Allergies: Coded Allergies: No Known Allergies (Unverified , 12/13/16) Subjective Obtunded, non verbal tolerating TF Objective Last 24 Hour Vital Signs Date Time Temp Pulse Resp B/P (MAP) Pulse Ox O2 Delivery O2 Flow Rate FiO2 08/23/19 05:30 79 17 28 08/23/19 04:00 97.0 90 20 131/77 (95) 100 08/23/19 04:00 Mechanical Ventilator 08/23/19 04:00 28 08/23/19 04:00 86 08/23/19 03:00 80 18 28 08/23/19 01:24 79 17 28 08/23/19 00:00 Mechanical Ventilator 08/23/19 00:00 97.8 82 21 115/67 (83) 100 08/22/19 23:47 78 08/22/19 23:04 70 14 28 08/22/19 21:07 86 19 100 Mechanical Ventilator 28 88 14 28 08/22/19 20:00 98.8 85 22 126/70 (88) 98 08/22/19 20:00 Mechanical Ventilator 08/22/19 20:00 28 08/22/19 19:38 78 08/22/19 19:11 74 13 28 08/22/19 17:57 59 100/50 08/22/19 17:15 59 12 28 08/22/19 16:00 Mechanical Ventilator 08/22/19 16:00 71 08/22/19 16:00 98.2 71 15 97/50 (66) 100 08/22/19 16:00 28 08/22/19 15:25 75 14 28 08/22/19 12:37 62 13 100 Mechanical Ventilator 28 65 12 28 08/22/19 12:00 28 08/22/19 12:00 Mechanical Ventilator 08/22/19 12:00 65 08/22/19 12:00 99.1 70 17 96/49 (65) 97 08/22/19 10:44 69 12 28 08/22/19 09:20 70 13 28 08/22/19 09:00 81 100/64 2/29/20 08:00 99.2 81 13 100/64 (76) 99 08/22/19 08:00 80 08/22/19 08:00 28 08/22/19 08:00 Mechanical Ventilator 08/22/19 07:27 78 15 28 Intake and Output 08/22/19 08/23/19 19:00 07:00 Intake Total 850 ml 610 ml Output Total 450 ml 650 ml Balance 400 ml -40 ml Intake Free Water 100 ml IV Total 110 ml 60 ml Tube Feeding 540 ml 450 ml Other 200 ml Output Urine Total 450 ml 650 ml # Voids 1 # Bowel Movements 2 Height (Feet): 5 Height (Inches): 8.00 Weight (Pounds): 159 Objective Debilitated WM, contracted NCAT (+) trach coarse Ronchi RR abd soft, GT (++) contracures Ted Rivero MD Aug 23, 2019 07:11
--- NOTE | 2019-08-23 07:15 | NUR ---
HAND-OFF: Report given to JUANJOSE Graves.
--- NOTE | 2019-08-23 07:20 | NUR ---
NURSE NOTES: Received report from JUANJOSE Bryan. The patient is resting on the bed without acute distress or shortness of breath. The patient's bed in the lowest position, call light in reach, and fall, aspiration, and seizure precaution reinforced. The patient is on mechanical ventilator AC12, PEEP 5, TV 600, FiO2 28%, Portex 7, and oxygen saturation 100% on ventilator. The patient has G-tube that is intact and patent and hold for Glucerna 1.5 @45mL/hr after administration of Synthroid per Irvin. Multiple wound and pressure ulcer noted for the patient. Dr. Pleitez at the bedside and notified episode of hypotension and bradycardia in the past. No new order at this time. Will continue plan of care.
--- NOTE | 2019-08-23 08:42 | Pulmonology Progress Note ---
Assessment/Plan Assessment/Plan trach vent dependent respiratory failure seizure disorder possible sepsis chronic encephalopathy PLAN vent support antibiotics noted monitor HH feeds off load monitor labs for change ID follow up and recommendations impression, plan, and exam edited and reviewed in detail care discussed with RN Subjective Allergies: Coded Allergies: No Known Allergies (Unverified , 12/13/16) Subjective care noted on vent s/p transfusion Objective Last 24 Hour Vital Signs Date Time Temp Pulse Resp B/P (MAP) Pulse Ox O2 Delivery O2 Flow Rate FiO2 08/23/19 07:10 87 16 28 08/23/19 05:30 79 17 28 08/23/19 04:00 97.0 90 20 131/77 (95) 100 08/23/19 04:00 Mechanical Ventilator 08/23/19 04:00 28 08/23/19 04:00 86 08/23/19 03:00 80 18 28 08/23/19 01:24 79 17 28 08/23/19 00:00 Mechanical Ventilator 08/23/19 00:00 97.8 82 21 115/67 (83) 100 08/22/19 23:47 78 08/22/19 23:04 70 14 28 08/22/19 21:07 86 19 100 Mechanical Ventilator 28 88 14 28 08/22/19 20:00 98.8 85 22 126/70 (88) 98 08/22/19 20:00 Mechanical Ventilator 08/22/19 20:00 28 08/22/19 19:38 78 08/22/19 19:11 74 13 28 08/22/19 17:57 59 100/50 08/22/19 17:15 59 12 28 08/22/19 16:00 Mechanical Ventilator 08/22/19 16:00 71 08/22/19 16:00 98.2 71 15 97/50 (66) 100 08/22/19 16:00 28 08/22/19 15:25 75 14 28 08/22/19 12:37 62 13 100 Mechanical Ventilator 28 65 12 28 08/22/19 12:00 28 08/22/19 12:00 Mechanical Ventilator 08/22/19 12:00 65 08/22/19 12:00 99.1 70 17 96/49 (65) 97 08/22/19 10:44 69 12 28 08/22/19 09:20 70 13 28 08/22/19 09:00 81 100/64 Intake and Output 08/22/19 08/23/19 19:00 07:00 Intake Total 850 ml 610 ml Output Total 450 ml 650 ml Balance 400 ml -40 ml Intake Free Water 100 ml IV Total 110 ml 60 ml Tube Feeding 540 ml 450 ml Other 200 ml Output Urine Total 450 ml 650 ml # Voids 1 # Bowel Movements 2 Objective WDWN NAD trach and GT in place clear breath sounds bilaterally without rhonchi or wheeze [id number] without MRG NABS nontender no HSM no CCE nonfocal contractures Current Medications Medications (Trade) Dose Ordered Sig/Dolly Route PRN Reason Start Time Stop Time Status Last Admin Dose Admin Acetaminophen (Tylenol) 650 mg Q4H PRN GT Mild Pain/Temp > 100.5 08/19/19 14:15 09/18/19 14:14 08/22/19 09:33 Albuterol Sulfate (Proventil) 2.5 mg Q6H PRN HHN Shortness of Breath 08/18/19 20:00 08/23/19 19:59 Ascorbic Acid (Vitamin C) 500 mg TWICE A DAY GT 08/19/19 18:00 09/18/19 17:59 08/22/19 17:54 Atenolol (Tenormin) 12.5 mg BID GT 08/19/19 09:00 09/18/19 08:59 08/21/19 17:54 Docusate Sodium (Colace) 100 mg DAILY GT 08/20/19 09:00 09/19/19 08:59 08/21/19 08:31 Gentamicin Sulfate (Gentamicin vial) 300 mg Q12HR@10,22 INH 08/21/19 22:00 08/28/19 21:59 08/22/19 21:07 Heparin Sodium (Porcine) (Heparin 5000 units/ml) 5,000 units EVERY 12 HOURS SUBQ 08/18/19 21:00 09/17/19 20:59 08/22/19 20:40 Iron Sucrose 100 mg/Sodium Chloride 60 ml @ 240 mls/hr BEDTIME IV 08/21/19 21:00 08/25/19 21:14 08/22/19 20:41 Levetiracetam (Keppra) 500 mg EVERY 12 HOURS GT 08/18/19 21:00 09/17/19 20:59 08/22/19 20:40 Levothyroxine Sodium (Synthroid) 250 mcg DAILY@0630 GT 08/20/19 06:30 09/19/19 06:29 08/23/19 06:32 Pantoprazole (Protonix) 40 mg EVERY 12 HOURS ORAL 08/21/19 09:00 09/20/19 08:59 08/22/19 20:40 Sennosides (Senokot) 17.2 mg DAILY GT 08/19/19 09:00 09/18/19 08:59 08/21/19 08:32 Sodium Hypochlorite (Dakin's Quarter Strength) 1 applic DAILY TOPIC 08/20/19 09:00 09/19/19 08:59 08/22/19 09:35 Tamsulosin HCl (Flomax) 0.4 mg BEDTIME ORAL 08/21/19 21:00 09/20/19 20:59 08/22/19 20:40 Vancomycin HCl (Vanco rx to dose) 1 ea DAILY PRN MISC Per rx protocol 08/18/19 20:00 09/17/19 19:59 Vancomycin HCl 500 mg/Sodium Chloride 110 ml @ 110 mls/hr Q24H IVPB 08/21/19 09:00 08/26/19 08:59 08/22/19 09:31 Cody Bran MD Aug 23, 2019 08:42
[2019-08-23] MEDS ORDERED: Vancomycin 750mg/NS 275ml IVPB SCH ×2 (09:00)
[2019-08-23] MEDS: Sennosides 8.6mg tab GT SCH (09:06)
[2019-08-23] MEDS: Docusate 100mg/10ml Liq GT SCH (09:06)
[2019-08-23] MEDS: Vancomycin 500 MG in NS 110 ML IVPB SCH (09:07)
[2019-08-23] MEDS: Atenolol 25mg tab GT SCH ×2 (09:07→17:50)
[2019-08-23] MEDS: Ascorbic Acid 500mg tab GT SCH ×2 (09:07→17:51)
[2019-08-23] MEDS: Heparin 5000 units/ml inj SUBQ SCH ×2 (09:08→21:05)
--- NOTE | 2019-08-23 09:10 | Urology Progress Note ---
Assessment/Plan Status: stable, not improved Assessment/Plan: 1. Right UVJ calculus. 2. Mild hydronephrosis. 3. Acute kidney injury, which is better. 4. Hematuria. 5. Pyuria. 6. Urinary incontinence. 7. Probable neurogenic bladder. monitor clinically flomax added abx as ordered consider nephrostomy monitor renal fxn f/u on last blood cx Subjective Allergies: Coded Allergies: No Known Allergies (Unverified , 12/13/16) Subjective all noted, looks comfortable Objective Last 24 Hour Vital Signs Date Time Temp Pulse Resp B/P (MAP) Pulse Ox O2 Delivery O2 Flow Rate FiO2 08/23/19 09:07 83 123/64 08/23/19 07:10 87 16 28 08/23/19 05:30 79 17 28 08/23/19 04:00 97.0 90 20 131/77 (95) 100 08/23/19 04:00 Mechanical Ventilator 08/23/19 04:00 28 08/23/19 04:00 86 08/23/19 03:00 80 18 28 08/23/19 01:24 79 17 28 08/23/19 00:00 Mechanical Ventilator 08/23/19 00:00 97.8 82 21 115/67 (83) 100 08/22/19 23:47 78 08/22/19 23:04 70 14 28 08/22/19 21:07 86 19 100 Mechanical Ventilator 28 88 14 28 08/22/19 20:00 98.8 85 22 126/70 (88) 98 08/22/19 20:00 Mechanical Ventilator 08/22/19 20:00 28 08/22/19 19:38 78 08/22/19 19:11 74 13 28 08/22/19 17:57 59 100/50 08/22/19 17:15 59 12 28 08/22/19 16:00 Mechanical Ventilator 08/22/19 16:00 71 08/22/19 16:00 98.2 71 15 97/50 (66) 100 08/22/19 16:00 28 08/22/19 15:25 75 14 28 08/22/19 12:37 62 13 100 Mechanical Ventilator 28 65 12 28 08/22/19 12:00 28 08/22/19 12:00 Mechanical Ventilator 08/22/19 12:00 65 08/22/19 12:00 99.1 70 17 96/49 (65) 97 08/22/19 10:44 69 12 28 08/22/19 09:20 70 13 28 Intake and Output 08/22/19 08/23/19 19:00 07:00 Intake Total 850 ml 610 ml Output Total 450 ml 650 ml Balance 400 ml -40 ml Intake Free Water 100 ml IV Total 110 ml 60 ml Tube Feeding 540 ml 450 ml Other 200 ml Output Urine Total 450 ml 650 ml # Voids 1 # Bowel Movements 2 Microbiology Date/Time Source Procedure Growth Status 08/18/19 16:00 Blood Blood Culture - Preliminary NO GROWTH AFTER 4 DAYS Resulted 08/18/19 20:00 Sputum Gram Stain - Final Complete 08/18/19 20:00 Sputum Culture - Final Pseudomonas Aeruginosa - Mdr Usual Respiratory Mira Complete 08/18/19 15:00 Urine,Clean Catch Urine Culture - Final NO GROWTH AFTER 48 HOURS Complete 08/18/19 18:00 Rectum VRE Culture - Final Enterococcus Faecalis - Vre Complete Current Medications Medications (Trade) Dose Ordered Sig/Dolly Route PRN Reason Start Time Stop Time Status Last Admin Dose Admin Acetaminophen (Tylenol) 650 mg Q4H PRN GT Mild Pain/Temp > 100.5 08/19/19 14:15 09/18/19 14:14 08/22/19 09:33 Albuterol Sulfate (Proventil) 2.5 mg Q6H PRN HHN Shortness of Breath 08/18/19 20:00 08/23/19 19:59 Ascorbic Acid (Vitamin C) 500 mg TWICE A DAY GT 08/19/19 18:00 09/18/19 17:59 08/23/19 09:07 Atenolol (Tenormin) 12.5 mg BID GT 08/19/19 09:00 09/18/19 08:59 08/23/19 09:07 Docusate Sodium (Colace) 100 mg DAILY GT 08/20/19 09:00 09/19/19 08:59 08/23/19 09:06 Gentamicin Sulfate (Gentamicin vial) 300 mg Q12HR@10,22 INH 08/21/19 22:00 08/28/19 21:59 08/22/19 21:07 Heparin Sodium (Porcine) (Heparin 5000 units/ml) 5,000 units EVERY 12 HOURS SUBQ 08/18/19 21:00 09/17/19 20:59 08/23/19 09:08 Iron Sucrose 100 mg/Sodium Chloride 60 ml @ 240 mls/hr BEDTIME IV 08/21/19 21:00 08/25/19 21:14 08/22/19 20:41 Levetiracetam (Keppra) 500 mg EVERY 12 HOURS GT 08/18/19 21:00 09/17/19 20:59 08/23/19 09:06 Levothyroxine Sodium (Synthroid) 250 mcg DAILY@0630 GT 08/20/19 06:30 09/19/19 06:29 08/23/19 06:32 Pantoprazole (Protonix) 40 mg EVERY 12 HOURS ORAL 08/21/19 09:00 09/20/19 08:59 08/23/19 09:07 Sennosides (Senokot) 17.2 mg DAILY GT 08/19/19 09:00 09/18/19 08:59 08/23/19 09:06 Sodium Hypochlorite (Dakin's Quarter Strength) 1 applic DAILY TOPIC 08/20/19 09:00 09/19/19 08:59 08/22/19 09:35 Tamsulosin HCl (Flomax) 0.4 mg BEDTIME ORAL 08/21/19 21:00 09/20/19 20:59 08/22/19 20:40 Vancomycin HCl (Vanco rx to dose) 1 ea DAILY PRN MISC Per rx protocol 08/18/19 20:00 09/17/19 19:59 Vancomycin HCl 500 mg/Sodium Chloride 110 ml @ 110 mls/hr Q24H IVPB 08/21/19 09:00 08/26/19 08:59 08/23/19 09:07 Height (Feet): 5 Height (Inches): 8.00 Weight (Pounds): 159 Objective exam stable condom cath, urine grossly yellow Bamshad,Vickey Moore MD Aug 23, 2019 09:10
[2019-08-23] MEDS ORDERED: NS 275ml ONE (09:18)
[2019-08-23] MEDS ORDERED: Tubing IV Secondary IV ONE (09:18)
[2019-08-23] MEDS: Dakin's 0.125% Soln (Quarter Strength) 16oz TOPIC SCH (09:28)
--- NOTE | 2019-08-23 09:30 | NUR ---
NURSE NOTES: The patient is stable without acute distress or shortness of breath. Will continue plan of care.
[2019-08-23] MEDS: Gentamicin for inhalation INH SCH ×3 (10:00→21:47)
--- NOTE | 2019-08-23 10:30 | Infectious Diseases Prog Note ---
Assessment/Plan Assessment/Plan antibiotics : vancomycin iv, inhaled gentamicin A 1. Pseudomonas pneumonia. 2. Leukocytosis is improving. 3. Respiratory failure. 4. Developmental delay. 5. Right foot osteomyelitis. 6. Renal stones. P 1. continue iv vancomycin 36 more days 2. continue inhaled gentamicin 4 more days 3. will follow up cultures Subjective ROS Limited/Unobtainable: Yes Allergies: Coded Allergies: No Known Allergies (Unverified , 12/13/16) Objective Vital Signs Last 24 Hour Vital Signs Date Time Temp Pulse Resp B/P (MAP) Pulse Ox O2 Delivery O2 Flow Rate FiO2 08/23/19 09:07 83 123/64 08/23/19 08:00 99.4 83 20 123/64 (83) 100 08/23/19 08:00 28 08/23/19 08:00 Mechanical Ventilator 08/23/19 08:00 89 08/23/19 07:10 87 16 28 08/23/19 05:30 79 17 28 08/23/19 04:00 97.0 90 20 131/77 (95) 100 08/23/19 04:00 Mechanical Ventilator 08/23/19 04:00 28 08/23/19 04:00 86 08/23/19 03:00 80 18 28 08/23/19 01:24 79 17 28 08/23/19 00:00 Mechanical Ventilator 08/23/19 00:00 97.8 82 21 115/67 (83) 100 08/22/19 23:47 78 08/22/19 23:04 70 14 28 08/22/19 21:07 86 19 100 Mechanical Ventilator 28 88 14 28 08/22/19 20:00 98.8 85 22 126/70 (88) 98 08/22/19 20:00 Mechanical Ventilator 08/22/19 20:00 28 08/22/19 19:38 78 08/22/19 19:11 74 13 28 08/22/19 17:57 59 100/50 08/22/19 17:15 59 12 28 08/22/19 16:00 Mechanical Ventilator 08/22/19 16:00 71 08/22/19 16:00 98.2 71 15 97/50 (66) 100 08/22/19 16:00 28 08/22/19 15:25 75 14 28 08/22/19 12:37 62 13 100 Mechanical Ventilator 28 65 12 28 08/22/19 12:00 28 08/22/19 12:00 Mechanical Ventilator 08/22/19 12:00 65 08/22/19 12:00 99.1 70 17 96/49 (65) 97 08/22/19 10:44 69 12 28 Height (Feet): 5 Height (Inches): 8.00 Weight (Pounds): 159 HEENT: status post trach Respiratory/Chest: lungs clear Cardiovascular: normal rate, regular rhythm, no gallop/murmur Abdomen: soft, non tender, other - GT Extremities: no edema Laboratory Tests Test 08/23/19 08:10 Vancomycin Level Trough Pending Current Medications Medications (Trade) Dose Ordered Sig/Dolly Route PRN Reason Start Time Stop Time Status Last Admin Dose Admin Acetaminophen (Tylenol) 650 mg Q4H PRN GT Mild Pain/Temp > 100.5 08/19/19 14:15 09/18/19 14:14 08/22/19 09:33 Albuterol Sulfate (Proventil) 2.5 mg Q6H PRN HHN Shortness of Breath 08/18/19 20:00 08/23/19 19:59 Ascorbic Acid (Vitamin C) 500 mg TWICE A DAY GT 08/19/19 18:00 09/18/19 17:59 08/23/19 09:07 Atenolol (Tenormin) 12.5 mg BID GT 08/19/19 09:00 09/18/19 08:59 08/23/19 09:07 Docusate Sodium (Colace) 100 mg DAILY GT 08/20/19 09:00 09/19/19 08:59 08/23/19 09:06 Gentamicin Sulfate (Gentamicin vial) 300 mg Q12HR@10,22 INH 08/21/19 22:00 08/28/19 21:59 08/22/19 21:07 Heparin Sodium (Porcine) (Heparin 5000 units/ml) 5,000 units EVERY 12 HOURS SUBQ 08/18/19 21:00 09/17/19 20:59 08/23/19 09:08 Iron Sucrose 100 mg/Sodium Chloride 60 ml @ 240 mls/hr BEDTIME IV 08/21/19 21:00 08/25/19 21:14 08/22/19 20:41 Levetiracetam (Keppra) 500 mg EVERY 12 HOURS GT 08/18/19 21:00 09/17/19 20:59 08/23/19 09:06 Levothyroxine Sodium (Synthroid) 250 mcg DAILY@0630 GT 08/20/19 06:30 09/19/19 06:29 08/23/19 06:32 Pantoprazole (Protonix) 40 mg EVERY 12 HOURS ORAL 08/21/19 09:00 09/20/19 08:59 08/23/19 09:07 Sennosides (Senokot) 17.2 mg DAILY GT 08/19/19 09:00 09/18/19 08:59 08/23/19 09:06 Sodium Hypochlorite (Dakin's Quarter Strength) 1 applic DAILY TOPIC 08/20/19 09:00 09/19/19 08:59 08/23/19 09:28 Tamsulosin HCl (Flomax) 0.4 mg BEDTIME ORAL 08/21/19 21:00 09/20/19 20:59 08/22/19 20:40 Vancomycin HCl (Vanco rx to dose) 1 ea DAILY PRN MISC Per rx protocol 08/18/19 20:00 09/17/19 19:59 Vancomycin HCl 500 mg/Sodium Chloride 110 ml @ 110 mls/hr Q24H IVPB 08/21/19 09:00 08/26/19 08:59 08/23/19 09:07 Indigo Harris MD Aug 23, 2019 10:30
--- NOTE | 2019-08-23 10:37 | General Progress Note ---
Assessment/Plan Problem List: (1) Osteomyelitis of ankle or foot, right, acute ICD Codes: M86.171 - Other acute osteomyelitis, right ankle and foot SNOMED: 045911225 (2) Anemia ICD Codes: D64.9 - Anemia, unspecified SNOMED: 158770801 (3) Fever ICD Codes: R50.9 - Fever, unspecified SNOMED: 502144823 (4) Tracheostomy in place ICD Codes: Z93.0 - Tracheostomy status SNOMED: 882996817 (5) Chronic respiratory failure ICD Codes: J96.10 - Chronic respiratory failure, unspecified whether with hypoxia or hypercapnia SNOMED: 19489502 (6) Vegetative state ICD Codes: R40.3 - Persistent vegetative state SNOMED: 91141941, 925705786 (7) MDRO (multiple drug resistant organisms) resistance ICD Codes: Z16.35 - Resistance to multiple antimicrobial drugs SNOMED: 976407225 (8) Feeding by G-tube ICD Codes: Z93.1 - Gastrostomy status SNOMED: 986022767, 657383191 (9) Severe anoxic-ischemic encephalopathy ICD Codes: G93.1 - Anoxic brain damage, not elsewhere classified; I67.82 - Cerebral ischemia SNOMED: 735418737 (10) Seizure disorder as sequela of cerebrovascular accident ICD Codes: I69.398 - Other sequelae of cerebral infarction; G40.909 - Epilepsy , unspecified, not intractable, without status epilepticus SNOMED: 892671520744408 (11) Stage 4 skin ulcer of sacral region ICD Codes: L98.429 - Non-pressure chronic ulcer of back with unspecified severity SNOMED: 22626673, 397902157 (12) Sepsis ICD Codes: A41.9 - Sepsis, unspecified organism SNOMED: 18499383 Status: stable, not improved Assessment/Plan: cont iv abx per id follow up cultures vent support resp rx suctioning monitor h/h monitor for bleeding stool ob wound care sz rx dvt/stress ulcer prophylaxis Subjective ROS Limited/Unobtainable: Yes Constitutional: Reports: malaise, weakness HEENT: Reports: no symptoms Cardiovascular: Reports: edema Respiratory: Reports: shortness of breath, sputum Gastrointestinal/Abdominal: Reports: difficulty swallowing Genitourinary: Reports: no symptoms Neurologic/Psychiatric: Reports: pre-existing deficit, seizure Endocrine: Reports: no symptoms Hematologic/Lymphatic: Reports: anemia Allergies: Coded Allergies: No Known Allergies (Unverified , 12/13/16) All Systems: reviewed and negative except above Subjective no events. stable on the vent. fevers better. bp stable. no reports of bleeding. am labs pending.stable on the vent. getting wound care Objective Last 24 Hour Vital Signs Date Time Temp Pulse Resp B/P (MAP) Pulse Ox O2 Delivery O2 Flow Rate FiO2 08/23/19 09:07 83 123/64 08/23/19 08:00 99.4 83 20 123/64 (83) 100 08/23/19 08:00 28 08/23/19 08:00 Mechanical Ventilator 08/23/19 08:00 89 08/23/19 07:10 87 16 28 08/23/19 05:30 79 17 28 08/23/19 04:00 97.0 90 20 131/77 (95) 100 08/23/19 04:00 Mechanical Ventilator 08/23/19 04:00 28 08/23/19 04:00 86 08/23/19 03:00 80 18 28 08/23/19 01:24 79 17 28 08/23/19 00:00 Mechanical Ventilator 08/23/19 00:00 97.8 82 21 115/67 (83) 100 08/22/19 23:47 78 08/22/19 23:04 70 14 28 08/22/19 21:07 86 19 100 Mechanical Ventilator 28 88 14 28 08/22/19 20:00 98.8 85 22 126/70 (88) 98 08/22/19 20:00 Mechanical Ventilator 08/22/19 20:00 28 08/22/19 19:38 78 08/22/19 19:11 74 13 28 08/22/19 17:57 59 100/50 08/22/19 17:15 59 12 28 08/22/19 16:00 Mechanical Ventilator 08/22/19 16:00 71 08/22/19 16:00 98.2 71 15 97/50 (66) 100 08/22/19 16:00 28 08/22/19 15:25 75 14 28 08/22/19 12:37 62 13 100 Mechanical Ventilator 28 65 12 28 08/22/19 12:00 28 08/22/19 12:00 Mechanical Ventilator 08/22/19 12:00 65 08/22/19 12:00 99.1 70 17 96/49 (65) 97 08/22/19 10:44 69 12 28 Intake and Output 08/22/19 08/23/19 18:59 06:59 Intake Total 850 ml 655 ml Output Total 450 ml 650 ml Balance 400 ml 5 ml Intake Free Water 100 ml IV Total 110 ml 60 ml Tube Feeding 540 ml 495 ml Other 200 ml Output Urine Total 450 ml 650 ml # Voids 1 # Bowel Movements 2 Laboratory Tests 08/23/19 08:10: Vancomycin Level Trough 10.6 Height (Feet): 5 Height (Inches): 8.00 Weight (Pounds): 159 Objective General Appearance: WD/WN, lethargic, confused, thin Neck: non-tender, normal alignment, supple, normal inspection Cardiovascular: normal peripheral pulses, normal rate, regular rhythm Respiratory/Chest: chest wall non-tender, lungs clear, normal breath sounds, no respiratory distress, no accessory muscle use Abdomen: normal bowel sounds, non tender, soft, no organomegaly, no mass Edema: no edema noted Arm (L), no edema noted Arm (R), no edema noted Leg (L), no edema noted Leg (R), no edema noted Pedal (L), no edema noted Pedal (R), no edema noted Generalized Neurologic: disoriented, unresponsive, aphasia Skin: other - multiple wounds Amadeo Pleitez MD Aug 23, 2019 10:37
[2019-08-23 10:51] LABS: BASOPHILS % (AUTO) 0.4 % (0.0-2.0); HEMATOCRIT 31.2 % (42.0-52.0); HEMOGLOBIN 10.3 G/DL (14.2-18.0); LYMPHOCYTES % (AUTO) 12.2 % (20.0-45.0); MEAN CORPUSCULAR VOLUME 83 FL (80-99); MONOCYTES % (AUTO) 5.9 % (1.0-10.0); NEUTROPHILS % (AUTO) 79.4 % (45.0-75.0); PLATELET COUNT 290 K/UL (150-450); RED BLOOD COUNT 3.75 M/UL (4.70-6.10); RED CELL DISTRIBUTION WIDTH 14.2 % (11.6-14.8); WHITE BLOOD COUNT 10.1 K/UL (4.8-10.8)
[2019-08-23 11:03] LABS: ALANINE AMINOTRANSFERASE 15 U/L (12-78); ALBUMIN 1.7 G/DL (3.4-5.0); ALBUMIN/GLOBULIN RATIO 0.4 (1.0-2.7); ALKALINE PHOSPHATASE 66 U/L (46-116); ANION GAP 12 mmol/L (5-15); ASPARTATE AMINO TRANSFERASE 33 U/L (15-37); BILIRUBIN,TOTAL 0.3 MG/DL (0.2-1.0); BLOOD UREA NITROGEN 22 mg/dL (7-18); CALCIUM 8.1 MG/DL (8.5-10.1); CARBON DIOXIDE 20 MMOL/L (21-32); CHLORIDE 112 MMOL/L (98-107); CREATININE 0.9 MG/DL (0.55-1.30); POTASSIUM 4.7 MMOL/L (3.5-5.1); SODIUM 144 MMOL/L (136-145)
--- NOTE | 2019-08-23 11:11 | Diagnostic Imaging Report ---
EXAM: XR Chest, 1 View CLINICAL HISTORY: ABN CHST TECHNIQUE: Frontal view of the chest. COMPARISON: Chest radiograph On 08/18/2019 FINDINGS: Hardware: Tracheostomy tube terminates in the region of the upper/mid thoracic trachea. Lungs/pleura: Portions of the exam are limited by patient's hands projecting over the chest. Left basilar opacity appears similar, likely representing combination of small left pleural effusion with atelectasis versus pneumonia. Evaluation of the right lung base is significantly limited. Pulmonary vasculature congestion. Heart/mediastinum: Stable mild enlargement of the cardiac silhouette. Atherosclerotic calcifications in the aorta. Soft tissues: Unremarkable. Bones: No acute fracture. Upper abdomen: Normal. IMPRESSION: 1. Portions of the exam are limited by patient's hands projecting over the chest. 2. Left basilar opacity appears similar, likely representing combination of small left pleural effusion with atelectasis versus pneumonia. Evaluation of the right lung base is significantly limited. Pulmonary vasculature congestion.
--- NOTE | 2019-08-23 14:00 | NUR ---
NURSE NOTES: The patient is stable without acute distress or shortness of breath. No change of condition noted. Will continue plan of care.
--- NOTE | 2019-08-23 18:00 | Progress Note ---
DATE: 08/23/2019 CARDIOLOGY PROGRESS NOTE SUBJECTIVE: Remains on ventilator support. Secretions have decreased. Blood pressure stabilize. No fever spikes. OBJECTIVE: VITAL SIGNS: Blood pressure 123/64, pulse 83, and respiratory rate 20. Monitored rhythm, sinus. Temperature max 99.4. LUNGS: Scattered rhonchi. Thin secretions. HEART: Regular rhythm and rate. Normal S1, S2. ABDOMEN: Soft with G-tube. EXTREMITIES: Trace edema. LABORATORY DATA: White count 10 and hemoglobin 10.3. Sodium 144, potassium 4.7, bicarb 20, BUN 22, and creatinine 0.9. Albumin 1.7. Chest x-ray today reveals left basilar opacity, small effusion, and pulmonary venous congestion. IMPRESSION: 1. Acute on chronic diastolic congestive heart failure. 2. Healthcare-associated pneumonia. 3. Ventilator-dependent respiratory failure. 4. Dysphagia with G-tube. 5. Cerebrovascular disease with dementia. PLAN: 1. Antimicrobials. 2. Ventilator support. 3. Off IV fluids. 4. Continue maintenance beta-suze. 5. Cautious diuresis. 6. Monitor volume status and cardiorenal function. Kyaw Gonzalez M.D. DR: WIL JOB#: [id number] CC:
--- NOTE | 2019-08-23 18:00 | NUR ---
NURSE NOTES: The patient is stable without acute distress or shortness of breath. No acute change of condition noted. The patient is tolerating mechanical ventilator well with same setting. The patient is tolerating G tube with Glucerna 1.5 @45mL/hr well with no residual. Dressing change completed for the wound. Will continue plan of care.
--- NOTE | 2019-08-23 19:20 | NUR ---
HAND-OFF: Report given to JUANJOSE Bryan. The patient is resting on the bed without acute distress or shortness of breath. The patient's bed in the lowest position, call light in reach, and fall, aspiration,and seizure precaution reinforced. IV site intact and patent. Mechanical ventilator setting per order. G-tube intact and running Glucerna 1.5 @45mL/hr. Endorsed plan of care.
--- NOTE | 2019-08-23 19:21 | NUR ---
NURSE NOTES: Received patient form JUANJOSE Graves. Patient is obtunded, vss, with no signs of distress. Patient is contracted on all extremities and is clean. Patient is on trach to vent Portex 7 AC 12, TV 600, Fio2 28%, and PEEP of 5. Gtube feeding is running at goal. Skin issues noted and dressing is intact and clean. Bed at its lowest position, call light in reach and x3 bed rails are up. Will continue to monitor.
[2019-08-23] MEDS: Tamsulosin 0.4mg cap ORAL SCH (21:03)
[2019-08-23] MEDS: Iron Sucrose 100 MG in NS 55 ML IV SCH (21:03)
--- NOTE | 2019-08-23 23:45 | NUR ---
NURSE NOTES: Patient was cleaned and condom cath was changed.
--- NOTE | 2019-08-24 02:58 | NUR ---
NURSE NOTES: Left a message with Dr Rivero on his non-urgent line to get an order for Protonix IV instead of oral.
[2019-08-24 04:00] VITALS: BP 112/63
[2019-08-24] MEDS: LEVOTHYROXINE SODIUM 250 MCG GT SCH ×2 (06:11)
--- NOTE | 2019-08-24 06:54 | NUR ---
HAND-OFF: Report given to JUANJOSE Graves.
--- NOTE | 2019-08-24 07:10 | NUR ---
NURSE NOTES: Received report from JUANJOSE Bryan. The patient is resting on the bed without acute distress or shortness of breath. The patient's bed in the lowest position, call light in reach, and fall, aspiration, and seizure precaution reinforced. IV site intact and patent. The patient is on ventilator AC 12, PEEP 5, TV 600, FiO2 28%, and Portex 7, and oxygen saturation 100%. The patient is on condom cath and draining well. GT intact, and Glucerna 1.5 @45mL/hr on hold for levothyroxine. Will continue plan of care.
--- NOTE | 2019-08-24 07:22 | General Progress Note ---
Assessment/Plan Problem List: (1) Osteomyelitis of ankle or foot, right, acute ICD Codes: M86.171 - Other acute osteomyelitis, right ankle and foot SNOMED: 824509030 (2) Anemia ICD Codes: D64.9 - Anemia, unspecified SNOMED: 375621277 (3) Fever ICD Codes: R50.9 - Fever, unspecified SNOMED: 726339205 (4) Tracheostomy in place ICD Codes: Z93.0 - Tracheostomy status SNOMED: 151715932 (5) Chronic respiratory failure ICD Codes: J96.10 - Chronic respiratory failure, unspecified whether with hypoxia or hypercapnia SNOMED: 95840388 (6) Vegetative state ICD Codes: R40.3 - Persistent vegetative state SNOMED: 93594910, 262402552 (7) MDRO (multiple drug resistant organisms) resistance ICD Codes: Z16.35 - Resistance to multiple antimicrobial drugs SNOMED: 232521137 (8) Feeding by G-tube ICD Codes: Z93.1 - Gastrostomy status SNOMED: 409516545, 081383008 (9) Severe anoxic-ischemic encephalopathy ICD Codes: G93.1 - Anoxic brain damage, not elsewhere classified; I67.82 - Cerebral ischemia SNOMED: 014111934 (10) Seizure disorder as sequela of cerebrovascular accident ICD Codes: I69.398 - Other sequelae of cerebral infarction; G40.909 - Epilepsy , unspecified, not intractable, without status epilepticus SNOMED: 609998157459749 (11) Stage 4 skin ulcer of sacral region ICD Codes: L98.429 - Non-pressure chronic ulcer of back with unspecified severity SNOMED: 25173361, 238869402 (12) Sepsis ICD Codes: A41.9 - Sepsis, unspecified organism SNOMED: 16909718 Status: stable, not improved Assessment/Plan: cont iv abx per id follow up cultures vent support resp rx suctioning monitor h/h monitor for bleeding wound care sz rx dvt/stress ulcer prophylaxis Subjective ROS Limited/Unobtainable: No Constitutional: Reports: malaise, weakness HEENT: Reports: no symptoms Cardiovascular: Reports: no symptoms Respiratory: Reports: cough Gastrointestinal/Abdominal: Reports: difficulty swallowing Genitourinary: Reports: no symptoms Neurologic/Psychiatric: Reports: pre-existing deficit, seizure Endocrine: Reports: no symptoms Hematologic/Lymphatic: Reports: anemia Allergies: Coded Allergies: No Known Allergies (Unverified , 12/13/16) All Systems: reviewed and negative except above Subjective no events. stable on the vent. no fevers. bp stable/improved. no bleeding. remains on iv abx. no szs. awake but nonverbal Objective Last 24 Hour Vital Signs Date Time Temp Pulse Resp B/P (MAP) Pulse Ox O2 Delivery O2 Flow Rate FiO2 08/24/19 04:59 82 15 28 08/24/19 04:00 97.9 80 16 112/63 (79) 100 08/24/19 04:00 80 08/24/19 04:00 28 08/24/19 04:00 Mechanical Ventilator 08/24/19 02:40 82 17 28 08/24/19 00:33 72 20 28 08/24/19 00:00 Mechanical Ventilator 08/23/19 23:43 97.7 72 16 113/66 (82) 100 08/23/19 21:48 78 21 100 Mechanical Ventilator 28 71 19 28 08/23/19 20:43 78 21 28 08/23/19 20:00 77 08/23/19 20:00 98.0 75 23 125/75 (92) 100 08/23/19 20:00 Mechanical Ventilator 08/23/19 20:00 28 08/23/19 18:31 69 19 28 08/23/19 17:50 71 109/67 08/23/19 16:54 63 18 28 08/23/19 16:00 Mechanical Ventilator 08/23/19 16:00 97.9 67 20 109/67 (81) 100 08/23/19 16:00 72 08/23/19 16:00 28 08/23/19 14:50 74 15 28 08/23/19 13:21 67 13 28 08/23/19 12:00 Mechanical Ventilator 08/23/19 12:00 73 08/23/19 12:00 98.8 80 20 110/65 (80) 100 08/23/19 12:00 28 08/23/19 09:07 83 123/64 08/23/19 08:00 99.4 83 20 123/64 (83) 100 08/23/19 08:00 28 08/23/19 08:00 Mechanical Ventilator 08/23/19 08:00 89 Intake and Output 08/23/19 08/24/19 19:00 07:00 Intake Total 785 ml 715 ml Output Total 1100 ml Balance -315 ml 715 ml Intake Free Water 200 ml 250 ml IV Total 60 ml Tube Feeding 585 ml 405 ml Output Urine Total 1100 ml # Bowel Movements 2 1 Laboratory Tests 08/23/19 08:10: White Blood Count 10.1, Red Blood Count 3.75L, Hemoglobin 10.3L, Hematocrit 31.2L, Mean Corpuscular Volume 83, Mean Corpuscular Hemoglobin 27.3, Mean Corpuscular Hemoglobin Concent 32.8, Red Cell Distribution Width 14.2, Platelet Count 290, Mean Platelet Volume 5.1L, Neutrophils (%) (Auto) 79.4H, Lymphocytes (%) (Auto) 12.2L, Monocytes (%) (Auto) 5.9, Eosinophils (%) (Auto) 2.0, Basophils (%) (Auto) 0.4, Sodium Level 144, Potassium Level 4.7, Chloride Level 112H, Carbon Dioxide Level 20L, Anion Gap 12, Blood Urea Nitrogen 22H, Creatinine 0.9, Estimat Glomerular Filtration Rate > 60, Glucose Level 106, Calcium Level 8.1L, Total Bilirubin 0.3, Aspartate Amino Transf (AST/SGOT) 33, Alanine Aminotransferase (ALT/SGPT) 15, Alkaline Phosphatase 66, Total Protein 6.0L, Albumin 1.7L, Globulin 4.3, Albumin/Globulin Ratio 0.4L, Vancomycin Level Trough 10.6 Height (Feet): 5 Height (Inches): 8.00 Weight (Pounds): 159 Objective General Appearance: WD/WN, lethargic, confused, thin Neck: non-tender, normal alignment, supple, normal inspection Cardiovascular: normal peripheral pulses, normal rate, regular rhythm Respiratory/Chest: chest wall non-tender, lungs clear, normal breath sounds, no respiratory distress, no accessory muscle use Abdomen: normal bowel sounds, non tender, soft, no organomegaly, no mass Edema: no edema noted Arm (L), no edema noted Arm (R), no edema noted Leg (L), no edema noted Leg (R), no edema noted Pedal (L), no edema noted Pedal (R), no edema noted Generalized Neurologic: disoriented, unresponsive, aphasia Skin: other - multiple wounds Amadeo Pleitez MD Aug 24, 2019 07:22
--- NOTE | 2019-08-24 07:51 | Urology Progress Note ---
Assessment/Plan Status: stable, not improved Assessment/Plan: 1. Right UVJ calculus. 2. Mild hydronephrosis. 3. Acute kidney injury, which is better. 4. Hematuria. 5. Pyuria. 6. Urinary incontinence. 7. Probable neurogenic bladder. monitor clinically flomax added abx as ordered consider nephrostomy monitor renal fxn Subjective Allergies: Coded Allergies: No Known Allergies (Unverified , 12/13/16) Subjective all noted, looks comfortable Objective Last 24 Hour Vital Signs Date Time Temp Pulse Resp B/P (MAP) Pulse Ox O2 Delivery O2 Flow Rate FiO2 08/24/19 07:18 77 16 28 08/24/19 04:59 82 15 28 08/24/19 04:00 97.9 80 16 112/63 (79) 100 08/24/19 04:00 80 08/24/19 04:00 28 08/24/19 04:00 Mechanical Ventilator 08/24/19 02:40 82 17 28 08/24/19 00:33 72 20 28 08/24/19 00:00 Mechanical Ventilator 08/23/19 23:43 97.7 72 16 113/66 (82) 100 08/23/19 21:48 78 21 100 Mechanical Ventilator 28 71 19 28 08/23/19 20:43 78 21 28 08/23/19 20:00 77 08/23/19 20:00 98.0 75 23 125/75 (92) 100 08/23/19 20:00 Mechanical Ventilator 08/23/19 20:00 28 08/23/19 18:31 69 19 28 08/23/19 17:50 71 109/67 08/23/19 16:54 63 18 28 08/23/19 16:00 Mechanical Ventilator 08/23/19 16:00 97.9 67 20 109/67 (81) 100 08/23/19 16:00 72 08/23/19 16:00 28 08/23/19 14:50 74 15 28 08/23/19 13:21 67 13 28 08/23/19 12:00 Mechanical Ventilator 08/23/19 12:00 73 08/23/19 12:00 98.8 80 20 110/65 (80) 100 08/23/19 12:00 28 08/23/19 09:07 83 123/64 08/23/19 08:00 99.4 83 20 123/64 (83) 100 08/23/19 08:00 28 08/23/19 08:00 Mechanical Ventilator 08/23/19 08:00 89 Intake and Output 08/23/19 08/24/19 19:00 07:00 Intake Total 785 ml 715 ml Output Total 1100 ml Balance -315 ml 715 ml Intake Free Water 200 ml 250 ml IV Total 60 ml Tube Feeding 585 ml 405 ml Output Urine Total 1100 ml # Bowel Movements 2 1 Microbiology Date/Time Source Procedure Growth Status 08/18/19 16:00 Blood Blood Culture - Final NO GROWTH AFTER 5 DAYS Complete 08/18/19 20:00 Sputum Gram Stain - Final Complete 08/18/19 20:00 Sputum Culture - Final Pseudomonas Aeruginosa - Mdr Usual Respiratory Mira Complete 08/18/19 15:00 Urine,Clean Catch Urine Culture - Final NO GROWTH AFTER 48 HOURS Complete 08/18/19 18:00 Rectum VRE Culture - Final Enterococcus Faecalis - Vre Complete Current Medications Medications (Trade) Dose Ordered Sig/Dolly Route PRN Reason Start Time Stop Time Status Last Admin Dose Admin Acetaminophen (Tylenol) 650 mg Q4H PRN GT Mild Pain/Temp > 100.5 08/19/19 14:15 09/18/19 14:14 08/22/19 09:33 Ascorbic Acid (Vitamin C) 500 mg TWICE A DAY GT 08/19/19 18:00 09/18/19 17:59 08/23/19 17:51 Atenolol (Tenormin) 12.5 mg BID GT 08/19/19 09:00 09/18/19 08:59 08/23/19 09:07 Docusate Sodium (Colace) 100 mg DAILY GT 08/20/19 09:00 09/19/19 08:59 08/23/19 09:06 Gentamicin Sulfate (Gentamicin vial) 300 mg Q12HR@10,22 INH 08/21/19 22:00 08/28/19 21:59 08/23/19 21:23 Heparin Sodium (Porcine) (Heparin 5000 units/ml) 5,000 units EVERY 12 HOURS SUBQ 08/18/19 21:00 09/17/19 20:59 08/23/19 21:05 Iron Sucrose 100 mg/Sodium Chloride 60 ml @ 240 mls/hr BEDTIME IV 08/21/19 21:00 08/25/19 21:14 08/23/19 21:03 Levetiracetam (Keppra) 500 mg EVERY 12 HOURS GT 08/18/19 21:00 09/17/19 20:59 08/23/19 21:04 Levothyroxine Sodium (Synthroid) 250 mcg DAILY@0630 GT 08/20/19 06:30 09/19/19 06:29 08/24/19 06:11 Pantoprazole (Protonix) 40 mg EVERY 12 HOURS ORAL 08/21/19 09:00 09/20/19 08:59 08/23/19 21:23 Sennosides (Senokot) 17.2 mg DAILY GT 08/19/19 09:00 09/18/19 08:59 08/23/19 09:06 Sodium Hypochlorite (Dakin's Quarter Strength) 1 applic DAILY TOPIC 08/20/19 09:00 09/19/19 08:59 08/23/19 09:28 Tamsulosin HCl (Flomax) 0.4 mg BEDTIME ORAL 08/21/19 21:00 09/20/19 20:59 08/23/19 21:03 Vancomycin HCl (Vanco rx to dose) 1 ea DAILY PRN MISC Per rx protocol 08/18/19 20:00 09/17/19 19:59 Vancomycin HCl 750 mg/Sodium Chloride 275 ml @ 183.333 mls/hr Q24H IVPB 08/24/19 09:00 08/29/19 08:59 Laboratory Tests 08/23/19 08:10: White Blood Count 10.1, Red Blood Count 3.75L, Hemoglobin 10.3L, Hematocrit 31.2L, Mean Corpuscular Volume 83, Mean Corpuscular Hemoglobin 27.3, Mean Corpuscular Hemoglobin Concent 32.8, Red Cell Distribution Width 14.2, Platelet Count 290, Mean Platelet Volume 5.1L, Neutrophils (%) (Auto) 79.4H, Lymphocytes (%) (Auto) 12.2L, Monocytes (%) (Auto) 5.9, Eosinophils (%) (Auto) 2.0, Basophils (%) (Auto) 0.4, Sodium Level 144, Potassium Level 4.7, Chloride Level 112H, Carbon Dioxide Level 20L, Anion Gap 12, Blood Urea Nitrogen 22H, Creatinine 0.9, Estimat Glomerular Filtration Rate > 60, Glucose Level 106, Calcium Level 8.1L, Total Bilirubin 0.3, Aspartate Amino Transf (AST/SGOT) 33, Alanine Aminotransferase (ALT/SGPT) 15, Alkaline Phosphatase 66, Total Protein 6.0L, Albumin 1.7L, Globulin 4.3, Albumin/Globulin Ratio 0.4L, Vancomycin Level Trough 10.6 Height (Feet): 5 Height (Inches): 8.00 Weight (Pounds): 159 Objective exam stable condom cath, urine grossly yellow Bamshad,Vickey Moore MD Aug 24, 2019 07:51
[2019-08-24 08:00] VITALS: BP 121/71
--- NOTE | 2019-08-24 08:33 | Pulmonology Progress Note ---
Assessment/Plan Assessment/Plan trach vent dependent respiratory failure seizure disorder possible sepsis chronic encephalopathy PLAN vent support antibiotics noted monitor HH feeds off load monitor labs for change ID follow up and recommendations impression, plan, and exam edited and reviewed in detail care discussed with RN Subjective ROS Limited/Unobtainable: Yes Allergies: Coded Allergies: No Known Allergies (Unverified , 12/13/16) Subjective care noted on vent Objective Last 24 Hour Vital Signs Date Time Temp Pulse Resp B/P (MAP) Pulse Ox O2 Delivery O2 Flow Rate FiO2 08/24/19 07:18 77 16 28 08/24/19 04:59 82 15 28 08/24/19 04:00 97.9 80 16 112/63 (79) 100 08/24/19 04:00 80 08/24/19 04:00 28 08/24/19 04:00 Mechanical Ventilator 08/24/19 02:40 82 17 28 08/24/19 00:33 72 20 28 08/24/19 00:00 Mechanical Ventilator 08/23/19 23:43 97.7 72 16 113/66 (82) 100 08/23/19 21:48 78 21 100 Mechanical Ventilator 28 71 19 28 08/23/19 20:43 78 21 28 08/23/19 20:00 77 08/23/19 20:00 98.0 75 23 125/75 (92) 100 08/23/19 20:00 Mechanical Ventilator 08/23/19 20:00 28 08/23/19 18:31 69 19 28 08/23/19 17:50 71 109/67 08/23/19 16:54 63 18 28 08/23/19 16:00 Mechanical Ventilator 08/23/19 16:00 97.9 67 20 109/67 (81) 100 08/23/19 16:00 72 08/23/19 16:00 28 08/23/19 14:50 74 15 28 08/23/19 13:21 67 13 28 08/23/19 12:00 Mechanical Ventilator 08/23/19 12:00 73 08/23/19 12:00 98.8 80 20 110/65 (80) 100 08/23/19 12:00 28 08/23/19 09:07 83 123/64 Intake and Output 08/23/19 08/24/19 19:00 07:00 Intake Total 785 ml 715 ml Output Total 1100 ml Balance -315 ml 715 ml Intake Free Water 200 ml 250 ml IV Total 60 ml Tube Feeding 585 ml 405 ml Output Urine Total 1100 ml # Bowel Movements 2 1 Objective WDWN NAD trach and GT in place clear breath sounds bilaterally without rhonchi or wheeze [id number] without MRG NABS nontender no HSM no CCE nonfocal contractures Current Medications Medications (Trade) Dose Ordered Sig/Dolly Route PRN Reason Start Time Stop Time Status Last Admin Dose Admin Acetaminophen (Tylenol) 650 mg Q4H PRN GT Mild Pain/Temp > 100.5 08/19/19 14:15 09/18/19 14:14 08/22/19 09:33 Ascorbic Acid (Vitamin C) 500 mg TWICE A DAY GT 08/19/19 18:00 09/18/19 17:59 08/23/19 17:51 Atenolol (Tenormin) 12.5 mg BID GT 08/19/19 09:00 09/18/19 08:59 08/23/19 09:07 Docusate Sodium (Colace) 100 mg DAILY GT 08/20/19 09:00 09/19/19 08:59 08/23/19 09:06 Famotidine (Pepcid) 40 mg DAILY GT 08/24/19 09:00 09/23/19 08:59 Gentamicin Sulfate (Gentamicin vial) 300 mg Q12HR@10,22 INH 08/21/19 22:00 08/28/19 21:59 08/23/19 21:23 Heparin Sodium (Porcine) (Heparin 5000 units/ml) 5,000 units EVERY 12 HOURS SUBQ 08/18/19 21:00 09/17/19 20:59 08/23/19 21:05 Iron Sucrose 100 mg/Sodium Chloride 60 ml @ 240 mls/hr BEDTIME IV 08/21/19 21:00 08/25/19 21:14 08/23/19 21:03 Levetiracetam (Keppra) 500 mg EVERY 12 HOURS GT 08/18/19 21:00 09/17/19 20:59 08/23/19 21:04 Levothyroxine Sodium (Synthroid) 250 mcg DAILY@0630 GT 08/20/19 06:30 09/19/19 06:29 08/24/19 06:11 Sennosides (Senokot) 17.2 mg DAILY GT 08/19/19 09:00 09/18/19 08:59 08/23/19 09:06 Sodium Hypochlorite (Dakin's Quarter Strength) 1 applic DAILY TOPIC 08/20/19 09:00 09/19/19 08:59 08/23/19 09:28 Tamsulosin HCl (Flomax) 0.4 mg BEDTIME ORAL 08/21/19 21:00 09/20/19 20:59 08/23/19 21:03 Vancomycin HCl (Vanco rx to dose) 1 ea DAILY PRN MISC Per rx protocol 08/18/19 20:00 09/17/19 19:59 Vancomycin HCl 750 mg/Sodium Chloride 275 ml @ 183.333 mls/hr Q24H IVPB 08/24/19 09:00 08/29/19 08:59 Cody Bran MD Aug 24, 2019 08:33
[2019-08-24] MEDS: Docusate 100mg/10ml Liq GT SCH (08:36)
[2019-08-24] MEDS: Sennosides 8.6mg tab GT SCH (08:36)
[2019-08-24] MEDS: Ascorbic Acid 500mg tab GT SCH ×2 (08:37→18:17)
[2019-08-24] MEDS: Vancomycin 750mg/NS 275ml IVPB SCH ×2 (08:37)
[2019-08-24] MEDS: Atenolol 25mg tab GT SCH ×2 (08:37→18:00)
[2019-08-24] MEDS: Dakin's 0.125% Soln (Quarter Strength) 16oz TOPIC SCH (08:40)
[2019-08-24] MEDS: Heparin 5000 units/ml inj SUBQ SCH ×2 (08:40→20:54)
[2019-08-24] MEDS: Gentamicin for inhalation INH SCH (09:48)
--- NOTE | 2019-08-24 10:37 | Infectious Diseases Prog Note ---
Assessment/Plan Assessment/Plan antibiotics : vancomycin iv, inhaled gentamicin A 1. Pseudomonas pneumonia. 2. Leukocytosis is improving. 3. Respiratory failure. 4. Developmental delay. 5. Right foot osteomyelitis. 6. Renal stones. P 1. continue iv vancomycin 35 more days 2. continue inhaled gentamicin 3 more days 3. will follow up cultures Subjective ROS Limited/Unobtainable: Yes Allergies: Coded Allergies: No Known Allergies (Unverified , 12/13/16) Objective Vital Signs Last 24 Hour Vital Signs Date Time Temp Pulse Resp B/P (MAP) Pulse Ox O2 Delivery O2 Flow Rate FiO2 08/24/19 09:48 76 16 80 Mechanical Ventilator 28 77 15 08/24/19 09:07 77 15 28 08/24/19 08:37 81 121/71 08/24/19 08:00 Mechanical Ventilator 08/24/19 08:00 78 08/24/19 08:00 28 08/24/19 08:00 98.8 81 18 121/71 (88) 100 08/24/19 07:18 77 16 28 08/24/19 04:59 82 15 28 08/24/19 04:00 97.9 80 16 112/63 (79) 100 08/24/19 04:00 80 08/24/19 04:00 28 08/24/19 04:00 Mechanical Ventilator 08/24/19 02:40 82 17 28 08/24/19 00:33 72 20 28 08/24/19 00:00 Mechanical Ventilator 08/23/19 23:43 97.7 72 16 113/66 (82) 100 08/23/19 21:48 78 21 100 Mechanical Ventilator 28 71 19 28 08/23/19 20:43 78 21 28 08/23/19 20:00 77 08/23/19 20:00 98.0 75 23 125/75 (92) 100 08/23/19 20:00 Mechanical Ventilator 08/23/19 20:00 28 08/23/19 18:31 69 19 28 08/23/19 17:50 71 109/67 08/23/19 16:54 63 18 28 08/23/19 16:00 Mechanical Ventilator 08/23/19 16:00 97.9 67 20 109/67 (81) 100 08/23/19 16:00 72 08/23/19 16:00 28 08/23/19 14:50 74 15 28 08/23/19 13:21 67 13 28 08/23/19 12:00 Mechanical Ventilator 08/23/19 12:00 73 08/23/19 12:00 98.8 80 20 110/65 (80) 100 08/23/19 12:00 28 Height (Feet): 5 Height (Inches): 8.00 Weight (Pounds): 159 HEENT: status post trach Respiratory/Chest: lungs clear Cardiovascular: normal rate, regular rhythm, no gallop/murmur Abdomen: soft, non tender, other - GT Extremities: no edema Current Medications Medications (Trade) Dose Ordered Sig/Dolly Route PRN Reason Start Time Stop Time Status Last Admin Dose Admin Acetaminophen (Tylenol) 650 mg Q4H PRN GT Mild Pain/Temp > 100.5 08/19/19 14:15 09/18/19 14:14 08/22/19 09:33 Ascorbic Acid (Vitamin C) 500 mg TWICE A DAY GT 08/19/19 18:00 09/18/19 17:59 08/24/19 08:37 Atenolol (Tenormin) 12.5 mg BID GT 08/19/19 09:00 09/18/19 08:59 08/24/19 08:37 Docusate Sodium (Colace) 100 mg DAILY GT 08/20/19 09:00 09/19/19 08:59 08/24/19 08:36 Famotidine (Pepcid) 40 mg DAILY GT 08/24/19 09:00 09/23/19 08:59 08/24/19 08:36 Gentamicin Sulfate (Gentamicin vial) 300 mg Q12HR@10,22 INH 08/21/19 22:00 08/28/19 21:59 08/24/19 09:48 Heparin Sodium (Porcine) (Heparin 5000 units/ml) 5,000 units EVERY 12 HOURS SUBQ 08/18/19 21:00 09/17/19 20:59 08/24/19 08:40 Iron Sucrose 100 mg/Sodium Chloride 60 ml @ 240 mls/hr BEDTIME IV 08/21/19 21:00 08/25/19 21:14 08/23/19 21:03 Levetiracetam (Keppra) 500 mg EVERY 12 HOURS GT 08/18/19 21:00 09/17/19 20:59 08/24/19 08:36 Levothyroxine Sodium (Synthroid) 250 mcg DAILY@0630 GT 08/20/19 06:30 09/19/19 06:29 08/24/19 06:11 Sennosides (Senokot) 17.2 mg DAILY GT 08/19/19 09:00 09/18/19 08:59 08/24/19 08:36 Sodium Hypochlorite (Dakin's Quarter Strength) 1 applic DAILY TOPIC 08/20/19 09:00 09/19/19 08:59 08/24/19 08:40 Tamsulosin HCl (Flomax) 0.4 mg BEDTIME ORAL 08/21/19 21:00 09/20/19 20:59 08/23/19 21:03 Vancomycin HCl (Vanco rx to dose) 1 ea DAILY PRN MISC Per rx protocol 08/18/19 20:00 09/17/19 19:59 Vancomycin HCl 750 mg/Sodium Chloride 275 ml @ 183.333 mls/hr Q24H IVPB 08/24/19 09:00 08/29/19 08:59 08/24/19 08:37 Indigo Harris MD Aug 24, 2019 10:37
--- NOTE | 2019-08-24 11:33 | Surgery Progress Note ---
Surgery Progress Note Subjective Additional Comments no acute events comfortable stable labs noted exam stable Objective Last 24 Hour Vital Signs Date Time Temp Pulse Resp B/P (MAP) Pulse Ox O2 Delivery O2 Flow Rate FiO2 08/24/19 11:00 74 13 28 08/24/19 09:48 76 16 80 Mechanical Ventilator 28 77 15 08/24/19 09:07 77 15 28 08/24/19 08:37 81 121/71 08/24/19 08:00 Mechanical Ventilator 08/24/19 08:00 78 08/24/19 08:00 28 08/24/19 08:00 98.8 81 18 121/71 (88) 100 08/24/19 07:18 77 16 28 08/24/19 04:59 82 15 28 08/24/19 04:00 97.9 80 16 112/63 (79) 100 08/24/19 04:00 80 08/24/19 04:00 28 08/24/19 04:00 Mechanical Ventilator 08/24/19 02:40 82 17 28 08/24/19 00:33 72 20 28 08/24/19 00:00 Mechanical Ventilator 08/23/19 23:43 97.7 72 16 113/66 (82) 100 08/23/19 21:48 78 21 100 Mechanical Ventilator 28 71 19 28 08/23/19 20:43 78 21 28 08/23/19 20:00 77 08/23/19 20:00 98.0 75 23 125/75 (92) 100 08/23/19 20:00 Mechanical Ventilator 08/23/19 20:00 28 08/23/19 18:31 69 19 28 08/23/19 17:50 71 109/67 08/23/19 16:54 63 18 28 08/23/19 16:00 Mechanical Ventilator 08/23/19 16:00 97.9 67 20 109/67 (81) 100 08/23/19 16:00 72 08/23/19 16:00 28 08/23/19 14:50 74 15 28 08/23/19 13:21 67 13 28 08/23/19 12:00 Mechanical Ventilator 08/23/19 12:00 73 08/23/19 12:00 98.8 80 20 110/65 (80) 100 08/23/19 12:00 28 I&O Intake and Output 08/23/19 08/24/19 19:00 07:00 Intake Total 785 ml 715 ml Output Total 1100 ml Balance -315 ml 715 ml Intake Free Water 200 ml 250 ml IV Total 60 ml Tube Feeding 585 ml 405 ml Output Urine Total 1100 ml # Bowel Movements 2 1 Dressing: saturated Wound: other Drains: other Cardiovascular: RSR Respiratory: decreased breath sounds Abdomen: soft, present bowel sounds Extremities: no cyanosis Plan Problems: (1) Tracheostomy in place Assessment & Plan: A dense retrocardiac opacification demonstrated with silhouetting of the left hemidiaphragm appearing worse than on the prior occasion. This was seen to some extent on the prior occasion. Heart size is normal. Lung volumes are low. Tracheostomy is noted. Bones are osteopenic. IMPRESSION: Retrocardiac density. Consider pneumonia although the finding was present to some extent on the prior occasion indicating a part of this may be chronic. Correlate clinically. Tracheostomy (2) Fever (3) Chronic respiratory failure (4) Vegetative state (5) Sepsis Assessment & Plan: Patient admitted with sepsis fevers, tachycardia, leukocytosis, abnormal labs, renal insufficiency. Antibiotics as per infectious disease Patient identified to have multiple wounds on admission some foul-smelling and malodorous with drainage. Wound evaluated bedside no acute active infection identified and source of sepsis unlikely from patient's wounds. Patient has chronic stage IV sacral decubitus ulcer with necrotic tissue and slough and eschar. No purulent drainage. Foul odor likely from incontinence. labs improved recovering exam stable We will continue to follow with recommendations Orders placed Thank you for let me participate in patient's care (6) MDRO (multiple drug resistant organisms) resistance (7) Feeding by G-tube Assessment & Plan: DAILY ESTIMATED NEEDS: Needs based on Critical care, wound/ 63.4kg abw 25-30 kcals/kg 0178-5102 total kcals 1.5-2 g protein/kg 95-127 g total protein 25-30 mL/kg 3232-0866 total fluid mLs NUTRITION DIAGNOSIS: (1) Swallowing difficulty R/T respiratory status as evidenced by pt trach-vent dep, on GT feeding. (2) Increased kcal/pro needs R/T wound healing as evidenced by pt admitted w/ advanced wounds, pending eval CURRENT TF:Glucerna 1.5 @ 30ml/hr x 22 hrs ENTERAL NUTRITION RECOMMENDATIONS: Glucerna 1.5 @ 55ml/hr x 22 hrs to provide 1210ml, 1815kcal, 100g prot, 918ml free water * Increase goal rate to 55ml/hr x 22 hrs * Hold 1 hour before and after Synthroid administration * HOB over 30 degrees/ water flush per MD ADDITIONAL RECOMMENDATIONS: * Per SNF: HT=64" QE=417qnf (as of 07/30/19) * Wound healing: add Vit C 500mg BID add Dong 1pkt BID (mix w/ 4oz water) * Monitor lytes, replete as needed * Add NISS: h/o DM, on TF (8) Low grade fever (9) Severe anoxic-ischemic encephalopathy (10) Seizure disorder as sequela of cerebrovascular accident (11) Stage 4 skin ulcer of sacral region Assessment & Plan: Pt presented on admission with contractures and multiple pressure injuries. Full thickness pressure injury occipital. Base of wound is 40% necrotic with surrounding scattered slough and erythema. Small amt serous exudate. No odor noted. Edges are macerated and dark with surrounding erythema and denuded skin. (L)5.1cm x (W)8.2cm. Skin folds of neck very moist but no evidence of skin breakdown noted under collar of trach. Full thickness sacral pressure injury with undermined borders.(L)4.5cm x (W) 4.5cm x (D)1.5cm,undermining clockwise 3-11 by 1.3cm @3o'clock. Base of wound is 75% necrotic, 25% mixed slough and erythema. Wound is malodorous. Bone is visible at base of wound.Small amt seropurulent exudate noted. Non-blanching erythema without induration periwound. Resolving pressure injury lateral R tibia . scattered dry eschar with surrounding pink epithelial noted .Periwound without erythema or induration(L) 5cm x (W)0.9cm. Distal aspect of R foot is dusky. R 1st metatarsal is 75% necrotic,25% moist erythema.Oozing small amt haemopurulent exudate.Wound is malodorous. Borders are macerated(L)5.3cm x (W)4cm. R 2nd ,3rd,4th and 5th metatarsals noted to have dry eschar dorsally. Stable dry eschar dorsal R foot (L)0.4cm x (W)2.6cm. scattered dry scabs noted to [place] upper L thigh. No erythema noted at site. Lateral L foot extending to L 5th metatarsal head including plantar aspect is 90 % necrotic, with areas of fluctuance within base.5% surrounding moist erythema.Edges adherent to base of base of wound. Mild odor noted (L)4cm x (W) 14.5cm. Resolving pressure injury L lateral malleolus. Moist erythema with surrounding dry pink epithelial noted.(L)1cm x (W)0.8cm. Periwound without erythema or fluctuance. Both heels are boggy with scattered areas of hyperpigmentation from previous wounds. Tx.Plan: Cleanse wound Occipital with Dakin's 0.125% carlos a. Apply Dakin's Moistened Gauze. Cover with Optifoam drsg Daily and prn. Cleanse Sacral wound with Dakin's 0.125% carlos a.Loosely pack with Dakin's moistened kerlix. Apply Moisture Barrier Paste periwound. Cover with Optifoam drsg Daily and prn. Cleanse R 1st metatarsal with Dakin's 0.125% carlos a. Apply Dakin's moistened 2x2 Gauze. Apply Cavilon Skin Barrier periwound.Cover with ABD. Wrap with Kerlix Daily and prn. Swab Dorsal Aspects of R 2nd,3rd,4th and 5th metatarsals with Betadine Daily and prn. Cleanse wound lateral L foot with Dakin's 0.125% carlos a. Apply Dakin's moist gauze. Apply Cavilon Periwound. Cover with ABD pad and wrap with Kerlix Daily and prn. Apply Cavilon Skin Barrier to both heels. Cover each heel with Optifoam drsg. Change every 7 days and prn. Cover lateral R tibia with Optifoam drsg. Change every 7 days and prn. Air fluidized mattress. Reposition at least every 2hours or as tolerated. Place pillow between knees . Place pillow behind knees to off-load heels. Position head to side to relieve pressure off Occipital wound. Evens Kaur Aug 24, 2019 11:33
[2019-08-24 12:00] VITALS: BP 104/53
--- NOTE | 2019-08-24 12:00 | NUR ---
NURSE NOTES: The patient is stable without acute distress or shortness of breath. Dr. Pleitez ordered PICC line placement. Will continue plan of care.
[2019-08-24] MEDS ORDERED: Lidocaine 1% Plain 30 ml INJ SCH (12:45)
[2019-08-24] MEDS ORDERED: Heparin1,000 units/500ml Premix(Conc:2 units/ml) IV SCH (12:45)
--- NOTE | 2019-08-24 13:15 | NUR ---
NURSE NOTES: Received a call from PICC line nurse. Due to the patient's severe contracture, PICC line insertion cannot be performed. Notified Dr. Pleitez. Will continue plan of care.
--- NOTE | 2019-08-24 13:29 | NUR ---
*-* INSURANCE *-* ALL AVAILABLE CLINICALS HAVE BEEN FAXED TO: [employer] ph# [phone] fax#[phone] reviews/clinicals & Chelsie Couch ph#[phone] fax# [phone] reviews/clinicals
--- NOTE | 2019-08-24 14:27 | NUR ---
RD ASSESSMENT & RECOMMENDATIONS SEE CARE ACTIVITY FOR COMPLETE ASSESSMENT DAILY ESTIMATED NEEDS: Needs based on Critical care, wound/ 63.4kg abw 25-30 kcals/kg 7277-8126 total kcals 1.5-2 g protein/kg 95-127 g total protein 25-30 mL/kg 2323-1010 total fluid mLs NUTRITION DIAGNOSIS: (1) Swallowing difficulty R/T respiratory status as evidenced by pt trach-vent dep, on GT feeding. (2) Increased kcal/pro needs R/T wound healing as evidenced by pt admitted w/ advanced wounds, including full thickness wounds @ occipital and sacrum, refer to WC eval. CURRENT TF:Glucerna 1.5 @ 45ml/hr x 22 hrs ENTERAL NUTRITION RECOMMENDATIONS: Glucerna 1.5 @ 55ml/hr x 22 hrs to provide 1210ml, 1815kcal, 100g prot, 918ml free water * Increase goal rate to 55ml/hr x 22 hrs * Hold 1 hour before and after Synthroid administration * HOB over 30 degrees/ water flush per MD ADDITIONAL RECOMMENDATIONS: * Per SNF: HT=64" EW=[id number] (as of 07/30/19) * Wound healing: Continue Vit C 500mg BID add Dong 1pkt BID (mix w/ 4oz water) * Monitor lytes, replete as needed * Monitor BGs, need for NISS: h/o DM, on TF
--- NOTE | 2019-08-24 15:21 | NUR ---
CARDIOLOGY : ECHO TECHS ATTENDED IN PT'S ROOM , HIS ARMS ARE CONTRACTED TRIED TO PUT THE ARMS ON THE SIDE BUT WOULDN'T BE ABLE TO MOVE HIS ARMS . CANT DO 2-D ECHO WITH HIS ARM COVERING HIS CHEST AREA . RN IS AWARE
[2019-08-24 16:00] VITALS: BP 102/52
--- NOTE | 2019-08-24 16:00 | NUR ---
NURSE NOTES: The patient is stable without acute distress or shortness of breath. Dressing change of wound completed. Cleaned the patient after bowel movement. The patient is on mechanical ventilator on the ordered setting, and oxygen saturation is 100%. G- tube intact and no residual noted and tolerating the feeding well. Will continue plan of care.
--- NOTE | 2019-08-24 16:56 | NUR ---
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 97.0 HR 72 RR 18 B/P 104/83 AC 12 TV 600 FIO2 285 PEEP 5 BUN 22 IS: VANCO IV IRON IV GENTAMICIN INH PICC LINE PLACEMENT STEP DOWN STATUS
--- NOTE | 2019-08-24 18:30 | NUR ---
NURSE NOTES: The patient's blood pressure has been 100-110s systolic and heart rate of 50-60s. Notified Dr. Pleitez. No new order. Will closely monitor the patient.
--- NOTE | 2019-08-24 19:20 | NUR ---
HAND-OFF: Report given to JUANJOSE Forrester. The patient is resting on the bed without acute distress or shortness of breath. The patient's bed in the lowest position, call light in reach, and fall, aspiration, and seizure precaution reinforced. IV site intact and patent. G-tube intact. Condom cath draining well. On ventilator setting as ordered. Endorsed plan of care.
--- NOTE | 2019-08-24 19:21 | NUR ---
NURSE NOTES: received pt from Ely SOW., . pt is on vent, no SOB noted. O2sat is at 100%. Gtube site clean, intact, and patent, glucerna 1.5 is running at 45cc/hr. pt has condom cath on and no leaking noted. left hand 22G IV are intact, clean, and patent. pt is resting on the bed and obtunded with open eye spontaneously. call light within reach. bed at the lowest position, alarmed,and locked. will continue to monitor pt with plan of care.
[2019-08-24] MEDS: Dyna-Hex 2% Top Sol 2oz TOPIC SCH (19:39)
--- NOTE | 2019-08-24 19:40 | NUR ---
NURSE NOTES: pilar hex not given due to no PICC line insertion.
[2019-08-24 20:00] VITALS: BP 123/64
[2019-08-24] MEDS: Tamsulosin 0.4mg cap ORAL SCH (20:50)
[2019-08-24] MEDS: Iron Sucrose 100 MG in NS 55 ML IV SCH (20:50)
--- NOTE | 2019-08-24 21:41 | General Progress Note ---
Assessment/Plan Status: stable, not improved Assessment/Plan: Assessment - acute on chronic anemia - chronic resp failure / trach - encephalopathy - contractures / decubitus - poor prognosis / not candidate for GI w/u Recommendations - transfuse PRN - IV Iron replacement - PPI --> H2B - TF - Wound care - supportive measures Subjective Allergies: Coded Allergies: No Known Allergies (Unverified , 12/13/16) Subjective Obtunded, non verbal tolerating TF Objective Last 24 Hour Vital Signs Date Time Temp Pulse Resp B/P (MAP) Pulse Ox O2 Delivery O2 Flow Rate FiO2 08/24/19 21:30 60 12 28 08/24/19 19:45 59 12 98 Mechanical Ventilator 28 08/24/19 19:30 59 12 28 08/24/19 18:00 64 102/52 08/24/19 16:55 61 13 28 08/24/19 16:00 61 08/24/19 16:00 97.9 64 18 102/52 (69) 100 08/24/19 16:00 28 08/24/19 16:00 Mechanical Ventilator 08/24/19 14:58 70 13 28 08/24/19 12:56 66 13 28 08/24/19 12:00 28 08/24/19 12:00 Mechanical Ventilator 08/24/19 12:00 97.0 72 18 104/53 (70) 100 08/24/19 12:00 70 08/24/19 11:00 74 13 28 08/24/19 09:48 76 16 80 Mechanical Ventilator 28 77 15 08/24/19 09:07 77 15 28 08/24/19 08:37 81 121/71 08/24/19 08:00 Mechanical Ventilator 08/24/19 08:00 78 08/24/19 08:00 28 08/24/19 08:00 98.8 81 18 121/71 (88) 100 08/24/19 07:18 77 16 28 08/24/19 04:59 82 15 28 08/24/19 04:00 97.9 80 16 112/63 (79) 100 08/24/19 04:00 80 08/24/19 04:00 28 08/24/19 04:00 Mechanical Ventilator 08/24/19 02:40 82 17 28 08/24/19 00:33 72 20 28 08/24/19 00:00 Mechanical Ventilator 08/23/19 23:43 97.7 72 16 113/66 (82) 100 08/23/19 21:48 78 21 100 Mechanical Ventilator 28 71 19 28 Intake and Output 08/23/19 08/24/19 19:00 07:00 Intake Total 785 ml 715 ml Output Total 1100 ml Balance -315 ml 715 ml Intake Free Water 200 ml 250 ml IV Total 60 ml Tube Feeding 585 ml 405 ml Output Urine Total 1100 ml # Bowel Movements 2 1 Height (Feet): 5 Height (Inches): 8.00 Weight (Pounds): 159 Objective Debilitated WM, contracted NCAT (+) trach coarse Ronchi RR abd soft, GT (++) contracures Ted Rivero MD Aug 24, 2019 21:41
[2019-08-25] VITALS: BP 114/60
[2019-08-25] MEDS: Gentamicin for inhalation INH SCH ×3 (00:24→23:28)
[2019-08-25 04:00] VITALS: BP 112/62
--- NOTE | 2019-08-25 05:00 | NUR ---
NURSE NOTES: provided new gown, bath, and new cover sheets. pt has no SOB at this moment. side rails are padded. call light within reach. repositioned Q2hrs.
[2019-08-25 05:35] LABS: BASOPHILS % (AUTO) 0.5 % (0.0-2.0); EOSINOPHILS % (AUTO) 2.7 % (0.0-3.0); HEMOGLOBIN 9.9 G/DL (14.2-18.0); MEAN CORPUSCULAR VOLUME 84 FL (80-99); MONOCYTES % (AUTO) 7.4 % (1.0-10.0); NEUTROPHILS % (AUTO) 67.4 % (45.0-75.0); PLATELET COUNT 279 K/UL (150-450); RED BLOOD COUNT 3.58 M/UL (4.70-6.10); RED CELL DISTRIBUTION WIDTH 14.1 % (11.6-14.8); WHITE BLOOD COUNT 7.3 K/UL (4.8-10.8)
--- NOTE | 2019-08-25 05:45 | Progress Note ---
DATE: 08/24/2019 CARDIOLOGY PROGRESS NOTE SUBJECTIVE: The patient remains on ventilator support. Secretions are decreasing. Blood pressure parameters remained stable. Monitored rhythm, sinus. PHYSICAL EXAMINATION: VITAL SIGNS: Blood pressure 112/63, pulse 80, respirations 16, afebrile. LUNGS: Coarse breath sounds. CARDIAC: Regular rhythm and rate. Normal S1, S2. ABDOMEN: Soft. EXTREMITIES: No edema. LABORATORY DATA: White count 10, hemoglobin 10.3. Potassium 4.7, BUN 22, creatinine 0.9. IMPRESSION: 1. Recovered shock due to sepsis and hypovolemia. 2. Ventilator-dependent respiratory failure. 3. Acute on chronic diastolic congestive heart failure. 4. Cerebrovascular disease with dementia. PLAN: 1. Additional diuresis. 2. Off IV fluids. 3. monitor volume status and clinical parameters. 4. Antimicrobials. 5. Ventilator support. Kyaw Gonzalez M.D. DR: SHANTELLE JOB#: [id number] CC:
[2019-08-25] MEDS: LEVOTHYROXINE SODIUM 250 MCG GT SCH ×2 (05:47)
[2019-08-25 06:24] LABS: ALANINE AMINOTRANSFERASE 17 U/L (12-78); ALBUMIN 1.7 G/DL (3.4-5.0); ALBUMIN/GLOBULIN RATIO 0.3 (1.0-2.7); ALKALINE PHOSPHATASE 57 U/L (46-116); ANION GAP 13 mmol/L (5-15); ASPARTATE AMINO TRANSFERASE 27 U/L (15-37); BILIRUBIN,TOTAL 0.4 MG/DL (0.2-1.0); BLOOD UREA NITROGEN 21 mg/dL (7-18); CALCIUM 8.7 MG/DL (8.5-10.1); CARBON DIOXIDE 20 MMOL/L (21-32); CHLORIDE 107 MMOL/L (98-107); SODIUM 140 MMOL/L (136-145)
--- NOTE | 2019-08-25 07:35 | NUR ---
NURSE NOTES: Received report from Yee Montana RN. Patient obtunded, nonverbal, unable to make needs known and follow commands. Trach to vent with settings of AC 12, TV 600, FiO2 28%, PEEP 5, no s/s of respiratory distress noted. GT feeding of Glucerna 1.5 running @ 45 cc/hr, no residuals noted. HoB elevated. Condom catheter in place and draining to gravity. Left hand 22g IV site patent and asymptomatic. Bed locked in lowest position with padded side rails up x 3. All needs attended to. Will continue to monitor.
--- NOTE | 2019-08-25 07:43 | NUR ---
HAND-OFF: Report given to Amelie SOW., pt remains stable. endorsed plan of care
--- NOTE | 2019-08-25 07:48 | Urology Progress Note ---
Assessment/Plan Status: stable, not improved Assessment/Plan: 1. Right UVJ calculus. 2. Mild hydronephrosis. 3. Acute kidney injury, which is better. 4. Hematuria. 5. Pyuria. 6. Urinary incontinence. 7. Probable neurogenic bladder. monitor clinically flomax added abx as ordered consider nephrostomy monitor renal fxn Subjective Allergies: Coded Allergies: No Known Allergies (Unverified , 12/13/16) Subjective all noted, looks comfortable Objective Last 24 Hour Vital Signs Date Time Temp Pulse Resp B/P (MAP) Pulse Ox O2 Delivery O2 Flow Rate FiO2 08/25/19 07:02 70 15 28 08/25/19 05:30 62 13 28 08/25/19 04:00 98.2 64 12 112/62 (79) 100 08/25/19 04:00 28 08/25/19 04:00 Mechanical Ventilator 08/25/19 03:32 61 08/25/19 03:30 65 13 28 08/25/19 01:30 68 13 28 08/25/19 00:00 Mechanical Ventilator 08/25/19 00:00 98.7 69 12 114/60 (78) 100 08/25/19 00:00 28 08/24/19 23:33 59 08/24/19 23:00 65 12 100 Mechanical Ventilator 28 69 12 28 08/24/19 21:30 60 12 28 08/24/19 20:00 28 08/24/19 20:00 Mechanical Ventilator 08/24/19 20:00 68 08/24/19 20:00 99.1 68 12 123/64 (83) 100 08/24/19 19:45 59 12 98 Mechanical Ventilator 28 08/24/19 19:30 59 12 28 08/24/19 18:00 64 102/52 08/24/19 16:55 61 13 28 08/24/19 16:00 61 08/24/19 16:00 97.9 64 18 102/52 (69) 100 08/24/19 16:00 28 08/24/19 16:00 Mechanical Ventilator 08/24/19 14:58 70 13 28 08/24/19 12:56 66 13 28 08/24/19 12:00 28 08/24/19 12:00 Mechanical Ventilator 08/24/19 12:00 97.0 72 18 104/53 (70) 100 08/24/19 12:00 70 08/24/19 11:00 74 13 28 08/24/19 09:48 76 16 80 Mechanical Ventilator 28 77 15 08/24/19 09:07 77 15 28 08/24/19 08:37 81 121/71 08/24/19 08:00 Mechanical Ventilator 08/24/19 08:00 78 08/24/19 08:00 28 08/24/19 08:00 98.8 81 18 121/71 (88) 100 Intake and Output 08/24/19 08/25/19 19:00 07:00 Intake Total 740 ml 750 ml Output Total 1000 ml 1400 ml Balance -260 ml -650 ml Intake Free Water 200 ml 150 ml IV Total 60 ml Tube Feeding 540 ml 540 ml Output Urine Total 1000 ml 1400 ml # Bowel Movements 2 Microbiology Date/Time Source Procedure Growth Status 08/18/19 16:00 Blood Blood Culture - Final NO GROWTH AFTER 5 DAYS Complete 08/18/19 20:00 Sputum Gram Stain - Final Complete 08/18/19 20:00 Sputum Culture - Final Pseudomonas Aeruginosa - Mdr Usual Respiratory Mira Complete 08/18/19 15:00 Urine,Clean Catch Urine Culture - Final NO GROWTH AFTER 48 HOURS Complete 08/18/19 18:00 Rectum VRE Culture - Final Enterococcus Faecalis - Vre Complete Current Medications Medications (Trade) Dose Ordered Sig/Dolly Route PRN Reason Start Time Stop Time Status Last Admin Dose Admin Acetaminophen (Tylenol) 650 mg Q4H PRN GT Mild Pain/Temp > 100.5 08/19/19 14:15 09/18/19 14:14 08/22/19 09:33 Ascorbic Acid (Vitamin C) 500 mg TWICE A DAY GT 08/19/19 18:00 09/18/19 17:59 08/24/19 18:17 Atenolol (Tenormin) 12.5 mg BID GT 08/19/19 09:00 09/18/19 08:59 08/24/19 08:37 Chlorhexidine Gluconate (Leesa-Hex 2%) 1 applic DAILY@1999 TOPIC 08/24/19 20:00 09/23/19 19:59 Docusate Sodium (Colace) 100 mg DAILY GT 08/20/19 09:00 09/19/19 08:59 08/24/19 08:36 Famotidine (Pepcid) 40 mg DAILY GT 08/24/19 09:00 09/23/19 08:59 08/24/19 08:36 Gentamicin Sulfate (Gentamicin vial) 300 mg Q12HR@10,22 INH 08/21/19 22:00 08/28/19 23:59 08/25/19 00:24 Heparin Sodium (Porcine) (Heparin 5000 units/ml) 5,000 units EVERY 12 HOURS SUBQ 08/18/19 21:00 09/17/19 20:59 08/24/19 20:54 Iron Sucrose 100 mg/Sodium Chloride 60 ml @ 240 mls/hr BEDTIME IV 08/21/19 21:00 08/25/19 21:14 08/24/19 20:50 Levetiracetam (Keppra) 500 mg EVERY 12 HOURS GT 08/18/19 21:00 09/17/19 20:59 08/24/19 20:50 Levothyroxine Sodium (Synthroid) 250 mcg DAILY@0630 GT 08/20/19 06:30 09/19/19 06:29 08/25/19 05:47 Sennosides (Senokot) 17.2 mg DAILY GT 08/19/19 09:00 09/18/19 08:59 08/24/19 08:36 Sodium Hypochlorite (Dakin's Quarter Strength) 1 applic DAILY TOPIC 08/20/19 09:00 09/19/19 08:59 08/24/19 08:40 Tamsulosin HCl (Flomax) 0.4 mg BEDTIME ORAL 08/21/19 21:00 09/20/19 20:59 08/24/19 20:50 Vancomycin HCl (Vanco rx to dose) 1 ea DAILY PRN MISC Per rx protocol 08/18/19 20:00 09/17/19 19:59 Vancomycin HCl 750 mg/Sodium Chloride 275 ml @ 183.333 mls/hr Q24H IVPB 08/24/19 09:00 09/28/19 23:59 08/24/19 08:37 Laboratory Tests 08/25/19 04:15: White Blood Count 7.3, Red Blood Count 3.58L, Hemoglobin 9.9L, Hematocrit 30.0L , Mean Corpuscular Volume 84, Mean Corpuscular Hemoglobin 27.7, Mean Corpuscular Hemoglobin Concent 33.1, Red Cell Distribution Width 14.1, Platelet Count 279, Mean Platelet Volume 4.9L, Neutrophils (%) (Auto) 67.4, Lymphocytes ( %) (Auto) 22.0, Monocytes (%) (Auto) 7.4, Eosinophils (%) (Auto) 2.7, Basophils (%) (Auto) 0.5, Sodium Level 140, Potassium Level 5.0, Chloride Level 107, Carbon Dioxide Level 20L, Anion Gap 13, Blood Urea Nitrogen 21H, Creatinine 1.0 , Estimat Glomerular Filtration Rate > 60, Glucose Level 86, Calcium Level 8.7, Total Bilirubin 0.4, Aspartate Amino Transf (AST/SGOT) 27, Alanine Aminotransferase (ALT/SGPT) 17, Alkaline Phosphatase 57, Pro-B-Type Natriuretic Peptide 2536H, Total Protein 7.0, Albumin 1.7L, Globulin 5.3, Albumin/Globulin Ratio 0.3L Height (Feet): 5 Height (Inches): 8.00 Weight (Pounds): 159 Objective exam stable condom cath, urine grossly yellow Bamshad,Vickey Moore MD Aug 25, 2019 07:48
[2019-08-25 08:00] VITALS: BP 134/77
[2019-08-25] MEDS: Heparin 5000 units/ml inj SUBQ SCH ×3 (09:00→20:57)
--- NOTE | 2019-08-25 09:03 | Pulmonology Progress Note ---
Assessment/Plan Assessment/Plan trach vent dependent respiratory failure seizure disorder possible sepsis chronic encephalopathy PLAN vent support antibiotics noted monitor HH feeds off load monitor labs for change ID follow up and recommendations impression, plan, and exam edited and reviewed in detail care discussed with RN Subjective Allergies: Coded Allergies: No Known Allergies (Unverified , 12/13/16) Subjective care noted on vent Objective Last 24 Hour Vital Signs Date Time Temp Pulse Resp B/P (MAP) Pulse Ox O2 Delivery O2 Flow Rate FiO2 08/25/19 08:49 67 13 28 08/25/19 08:00 98.1 74 19 134/77 (96) 100 08/25/19 07:02 70 15 28 08/25/19 05:30 62 13 28 08/25/19 04:00 98.2 64 12 112/62 (79) 100 08/25/19 04:00 28 08/25/19 04:00 Mechanical Ventilator 08/25/19 03:32 61 08/25/19 03:30 65 13 28 08/25/19 01:30 68 13 28 08/25/19 00:00 Mechanical Ventilator 08/25/19 00:00 98.7 69 12 114/60 (78) 100 08/25/19 00:00 28 08/24/19 23:33 59 08/24/19 23:00 65 12 100 Mechanical Ventilator 28 69 12 28 08/24/19 21:30 60 12 28 08/24/19 20:00 28 08/24/19 20:00 Mechanical Ventilator 08/24/19 20:00 68 08/24/19 20:00 99.1 68 12 123/64 (83) 100 08/24/19 19:45 59 12 98 Mechanical Ventilator 28 08/24/19 19:30 59 12 28 08/24/19 18:00 64 102/52 08/24/19 16:55 61 13 28 08/24/19 16:00 61 08/24/19 16:00 97.9 64 18 102/52 (69) 100 08/24/19 16:00 28 08/24/19 16:00 Mechanical Ventilator 08/24/19 14:58 70 13 28 08/24/19 12:56 66 13 28 08/24/19 12:00 28 08/24/19 12:00 Mechanical Ventilator 08/24/19 12:00 97.0 72 18 104/53 (70) 100 08/24/19 12:00 70 08/24/19 11:00 74 13 28 08/24/19 09:48 76 16 80 Mechanical Ventilator 28 77 15 08/24/19 09:07 77 15 28 Intake and Output 08/24/19 08/25/19 19:00 07:00 Intake Total 740 ml 750 ml Output Total 1000 ml 1400 ml Balance -260 ml -650 ml Intake Free Water 200 ml 150 ml IV Total 60 ml Tube Feeding 540 ml 540 ml Output Urine Total 1000 ml 1400 ml # Bowel Movements 2 Objective WDWN NAD trach and GT in place clear breath sounds bilaterally without rhonchi or wheeze [id number] without MRG NABS nontender no HSM no CCE nonfocal contractures Laboratory Tests 08/25/19 04:15: White Blood Count 7.3, Red Blood Count 3.58L, Hemoglobin 9.9L, Hematocrit 30.0L , Mean Corpuscular Volume 84, Mean Corpuscular Hemoglobin 27.7, Mean Corpuscular Hemoglobin Concent 33.1, Red Cell Distribution Width 14.1, Platelet Count 279, Mean Platelet Volume 4.9L, Neutrophils (%) (Auto) 67.4, Lymphocytes ( %) (Auto) 22.0, Monocytes (%) (Auto) 7.4, Eosinophils (%) (Auto) 2.7, Basophils (%) (Auto) 0.5, Sodium Level 140, Potassium Level 5.0, Chloride Level 107, Carbon Dioxide Level 20L, Anion Gap 13, Blood Urea Nitrogen 21H, Creatinine 1.0 , Estimat Glomerular Filtration Rate > 60, Glucose Level 86, Calcium Level 8.7, Total Bilirubin 0.4, Aspartate Amino Transf (AST/SGOT) 27, Alanine Aminotransferase (ALT/SGPT) 17, Alkaline Phosphatase 57, Pro-B-Type Natriuretic Peptide 2536H, Total Protein 7.0, Albumin 1.7L, Globulin 5.3, Albumin/Globulin Ratio 0.3L Current Medications Medications (Trade) Dose Ordered Sig/Dolly Route PRN Reason Start Time Stop Time Status Last Admin Dose Admin Acetaminophen (Tylenol) 650 mg Q4H PRN GT Mild Pain/Temp > 100.5 08/19/19 14:15 09/18/19 14:14 08/22/19 09:33 Ascorbic Acid (Vitamin C) 500 mg TWICE A DAY GT 08/19/19 18:00 09/18/19 17:59 08/24/19 18:17 Atenolol (Tenormin) 12.5 mg BID GT 08/19/19 09:00 09/18/19 08:59 08/24/19 08:37 Chlorhexidine Gluconate (Leesa-Hex 2%) 1 applic DAILY@2000 TOPIC 08/24/19 20:00 09/23/19 19:59 Docusate Sodium (Colace) 100 mg DAILY GT 08/20/19 09:00 09/19/19 08:59 08/24/19 08:36 Famotidine (Pepcid) 40 mg DAILY GT 08/24/19 09:00 09/23/19 08:59 08/24/19 08:36 Gentamicin Sulfate (Gentamicin vial) 300 mg Q12HR@10,22 INH 08/21/19 22:00 08/28/19 23:59 08/25/19 00:24 Heparin Sodium (Porcine) (Heparin 5000 units/ml) 5,000 units EVERY 12 HOURS SUBQ 08/18/19 21:00 09/17/19 20:59 08/24/19 20:54 Iron Sucrose 100 mg/Sodium Chloride 60 ml @ 240 mls/hr BEDTIME IV 08/21/19 21:00 08/25/19 21:14 08/24/19 20:50 Levetiracetam (Keppra) 500 mg EVERY 12 HOURS GT 08/18/19 21:00 09/17/19 20:59 08/24/19 20:50 Levothyroxine Sodium (Synthroid) 250 mcg DAILY@0630 GT 08/20/19 06:30 09/19/19 06:29 08/25/19 05:47 Sennosides (Senokot) 17.2 mg DAILY GT 08/19/19 09:00 09/18/19 08:59 08/24/19 08:36 Sodium Hypochlorite (Dakin's Quarter Strength) 1 applic DAILY TOPIC 08/20/19 09:00 09/19/19 08:59 08/24/19 08:40 Tamsulosin HCl (Flomax) 0.4 mg BEDTIME ORAL 08/21/19 21:00 09/20/19 20:59 08/24/19 20:50 Vancomycin HCl (Vanco rx to dose) 1 ea DAILY PRN MISC Per rx protocol 08/18/19 20:00 09/17/19 19:59 Vancomycin HCl 750 mg/Sodium Chloride 275 ml @ 183.333 mls/hr Q24H IVPB 08/24/19 09:00 09/28/19 23:59 08/24/19 08:37 Cody Bran MD Aug 25, 2019 09:03
[2019-08-25] MEDS ORDERED: NS 275ml ONE (09:04)
[2019-08-25] MEDS: Sennosides 8.6mg tab GT SCH (09:27)
[2019-08-25] MEDS: Ascorbic Acid 500mg tab GT SCH ×2 (09:27→18:55)
[2019-08-25] MEDS: Atenolol 25mg tab GT SCH ×2 (09:28→18:00)
[2019-08-25] MEDS: Docusate 100mg/10ml Liq GT SCH (09:28)
[2019-08-25] MEDS: Dakin's 0.125% Soln (Quarter Strength) 16oz TOPIC SCH (09:28)
[2019-08-25] MEDS: Vancomycin 750mg/NS 275ml IVPB SCH ×2 (09:36)
--- NOTE | 2019-08-25 10:20 | Infectious Diseases Prog Note ---
Assessment/Plan Assessment/Plan antibiotics : vancomycin iv, inhaled gentamicin A 1. Pseudomonas pneumonia. 2. Leukocytosis is improving. 3. Respiratory failure. 4. Developmental delay. 5. Right foot osteomyelitis. 6. Renal stones. P 1. continue iv vancomycin 34 more days 2. continue inhaled gentamicin 2 more days 3. will follow up cultures Subjective ROS Limited/Unobtainable: Yes Allergies: Coded Allergies: No Known Allergies (Unverified , 12/13/16) Objective Vital Signs Last 24 Hour Vital Signs Date Time Temp Pulse Resp B/P (MAP) Pulse Ox O2 Delivery O2 Flow Rate FiO2 08/25/19 09:28 67 134/77 08/25/19 08:49 67 13 28 08/25/19 08:00 98.1 74 19 134/77 (96) 100 08/25/19 07:02 70 15 28 08/25/19 05:30 62 13 28 08/25/19 04:00 98.2 64 12 112/62 (79) 100 08/25/19 04:00 28 08/25/19 04:00 Mechanical Ventilator 08/25/19 03:32 61 08/25/19 03:30 65 13 28 08/25/19 01:30 68 13 28 08/25/19 00:00 Mechanical Ventilator 08/25/19 00:00 98.7 69 12 114/60 (78) 100 08/25/19 00:00 28 08/24/19 23:33 59 08/24/19 23:00 65 12 100 Mechanical Ventilator 28 69 12 28 08/24/19 21:30 60 12 28 08/24/19 20:00 28 08/24/19 20:00 Mechanical Ventilator 08/24/19 20:00 68 08/24/19 20:00 99.1 68 12 123/64 (83) 100 08/24/19 19:45 59 12 98 Mechanical Ventilator 28 08/24/19 19:30 59 12 28 08/24/19 18:00 64 102/52 08/24/19 16:55 61 13 28 08/24/19 16:00 61 08/24/19 16:00 97.9 64 18 102/52 (69) 100 08/24/19 16:00 28 08/24/19 16:00 Mechanical Ventilator 08/24/19 14:58 70 13 28 08/24/19 12:56 66 13 28 08/24/19 12:00 28 08/24/19 12:00 Mechanical Ventilator 08/24/19 12:00 97.0 72 18 104/53 (70) 100 08/24/19 12:00 70 08/24/19 11:00 74 13 28 Height (Feet): 5 Height (Inches): 8.00 Weight (Pounds): 159 HEENT: status post trach Respiratory/Chest: lungs clear Cardiovascular: normal rate, regular rhythm, regularly irregular Abdomen: soft, non tender, other - GT Extremities: no edema Laboratory Tests Test 08/25/19 04:15 White Blood Count 7.3 K/UL (4.8-10.8) Red Blood Count 3.58 M/UL (4.70-6.10) L Hemoglobin 9.9 G/DL (14.2-18.0) L Hematocrit 30.0 % (42.0-52.0) L Mean Corpuscular Volume 84 FL (80-99) Mean Corpuscular Hemoglobin 27.7 PG (27.0-31.0) Mean Corpuscular Hemoglobin Concent 33.1 G/DL (32.0-36.0) Red Cell Distribution Width 14.1 % (11.6-14.8) Platelet Count 279 K/UL (150-450) Mean Platelet Volume 4.9 FL (6.5-10.1) L Neutrophils (%) (Auto) 67.4 % (45.0-75.0) Lymphocytes (%) (Auto) 22.0 % (20.0-45.0) Monocytes (%) (Auto) 7.4 % (1.0-10.0) Eosinophils (%) (Auto) 2.7 % (0.0-3.0) Basophils (%) (Auto) 0.5 % (0.0-2.0) Sodium Level 140 MMOL/L (136-145) Potassium Level 5.0 MMOL/L (3.5-5.1) Chloride Level 107 MMOL/L (98-107) Carbon Dioxide Level 20 MMOL/L (21-32) L Anion Gap 13 mmol/L (5-15) Blood Urea Nitrogen 21 mg/dL (7-18) H Creatinine 1.0 MG/DL (0.55-1.30) Estimat Glomerular Filtration Rate > 60 mL/min (>60) Glucose Level 86 MG/DL (74-106) Calcium Level 8.7 MG/DL (8.5-10.1) Total Bilirubin 0.4 MG/DL (0.2-1.0) Aspartate Amino Transf (AST/SGOT) 27 U/L (15-37) Alanine Aminotransferase (ALT/SGPT) 17 U/L (12-78) Alkaline Phosphatase 57 U/L (46-116) Pro-B-Type Natriuretic Peptide 2536 pg/mL (0-125) H Total Protein 7.0 G/DL (6.4-8.2) Albumin 1.7 G/DL (3.4-5.0) L Globulin 5.3 g/dL Albumin/Globulin Ratio 0.3 (1.0-2.7) L Current Medications Medications (Trade) Dose Ordered Sig/Dolly Route PRN Reason Start Time Stop Time Status Last Admin Dose Admin Acetaminophen (Tylenol) 650 mg Q4H PRN GT Mild Pain/Temp > 100.5 08/19/19 14:15 09/18/19 14:14 08/22/19 09:33 Ascorbic Acid (Vitamin C) 500 mg TWICE A DAY GT 08/19/19 18:00 09/18/19 17:59 08/25/19 09:27 Atenolol (Tenormin) 12.5 mg BID GT 08/19/19 09:00 09/18/19 08:59 08/25/19 09:28 Chlorhexidine Gluconate (Leesa-Hex 2%) 1 applic DAILY@1999 TOPIC 08/24/19 20:00 09/23/19 19:59 Docusate Sodium (Colace) 100 mg DAILY GT 08/20/19 09:00 09/19/19 08:59 08/25/19 09:28 Famotidine (Pepcid) 40 mg DAILY GT 08/24/19 09:00 09/23/19 08:59 08/25/19 09:28 Gentamicin Sulfate (Gentamicin vial) 300 mg Q12HR@10,22 INH 08/21/19 22:00 08/28/19 23:59 08/25/19 00:24 Heparin Sodium (Porcine) (Heparin 5000 units/ml) 5,000 units EVERY 12 HOURS SUBQ 08/18/19 21:00 3/26/20 20:59 08/25/19 10:03 Iron Sucrose 100 mg/Sodium Chloride 60 ml @ 240 mls/hr BEDTIME IV 08/21/19 21:00 08/25/19 21:14 08/24/19 20:50 Levetiracetam (Keppra) 500 mg EVERY 12 HOURS GT 08/18/19 21:00 09/17/19 20:59 08/25/19 09:28 Levothyroxine Sodium (Synthroid) 250 mcg DAILY@0630 GT 08/20/19 06:30 09/19/19 06:29 08/25/19 05:47 Sennosides (Senokot) 17.2 mg DAILY GT 08/19/19 09:00 09/18/19 08:59 08/25/19 09:27 Sodium Hypochlorite (Dakin's Quarter Strength) 1 applic DAILY TOPIC 08/20/19 09:00 09/19/19 08:59 08/25/19 09:28 Tamsulosin HCl (Flomax) 0.4 mg BEDTIME ORAL 08/21/19 21:00 09/20/19 20:59 08/24/19 20:50 Vancomycin HCl (Vanco rx to dose) 1 ea DAILY PRN MISC Per rx protocol 08/18/19 20:00 09/17/19 19:59 Vancomycin HCl 750 mg/Sodium Chloride 275 ml @ 183.333 mls/hr Q24H IVPB 08/24/19 09:00 09/28/19 23:59 08/25/19 09:36 Indigo Harris MD Aug 25, 2019 10:20
[2019-08-25 12:00] VITALS: BP 129/79
--- NOTE | 2019-08-25 15:06 | NUR ---
NURSE NOTES: Per applied technologist, patient is too contracted for 2D echo to be performed. Dr. Gonzalez made aware. Per Dr. Gonzalez, applied technologist needs to call him to explain their determination, cardiology techs notified.
--- NOTE | 2019-08-25 15:46 | Surgery Progress Note ---
Surgery Progress Note Subjective Symptoms: improved, tolerating diet, voiding well, passing flatus Objective Last 24 Hour Vital Signs Date Time Temp Pulse Resp B/P (MAP) Pulse Ox O2 Delivery O2 Flow Rate FiO2 08/25/19 14:58 68 12 28 08/25/19 12:56 68 13 28 08/25/19 12:00 Mechanical Ventilator 08/25/19 12:00 97.6 79 18 129/79 (96) 99 08/25/19 12:00 28 08/25/19 11:48 69 08/25/19 10:39 72 14 100 Mechanical Ventilator 28 73 15 28 08/25/19 09:28 67 134/77 08/25/19 08:49 67 13 28 08/25/19 08:00 Mechanical Ventilator 08/25/19 08:00 98.1 74 19 134/77 (96) 100 08/25/19 08:00 28 08/25/19 07:49 77 08/25/19 07:02 70 15 28 08/25/19 05:30 62 13 28 08/25/19 04:00 98.2 64 12 112/62 (79) 100 08/25/19 04:00 28 08/25/19 04:00 Mechanical Ventilator 08/25/19 03:32 61 08/25/19 03:30 65 13 28 08/25/19 01:30 68 13 28 08/25/19 00:00 Mechanical Ventilator 08/25/19 00:00 98.7 69 12 114/60 (78) 100 08/25/19 00:00 28 08/24/19 23:33 59 08/24/19 23:00 65 12 100 Mechanical Ventilator 28 69 12 28 08/24/19 21:30 60 12 28 08/24/19 20:00 28 08/24/19 20:00 Mechanical Ventilator 08/24/19 20:00 68 08/24/19 20:00 99.1 68 12 123/64 (83) 100 08/24/19 19:45 59 12 98 Mechanical Ventilator 28 08/24/19 19:30 59 12 28 08/24/19 18:00 64 102/52 08/24/19 16:55 61 13 28 08/24/19 16:00 61 08/24/19 16:00 97.9 64 18 102/52 (69) 100 08/24/19 16:00 28 08/24/19 16:00 Mechanical Ventilator I&O Intake and Output 08/24/19 08/25/19 19:00 07:00 Intake Total 740 ml 750 ml Output Total 1000 ml 1400 ml Balance -260 ml -650 ml Intake Free Water 200 ml 150 ml IV Total 60 ml Tube Feeding 540 ml 540 ml Output Urine Total 1000 ml 1400 ml # Bowel Movements 2 Cardiovascular: RSR Respiratory: clear Abdomen: soft, non-tender, present bowel sounds Extremities: no tenderness, no cyanosis Laboratory Tests Test 08/25/19 04:15 White Blood Count 7.3 K/UL (4.8-10.8) Red Blood Count 3.58 M/UL (4.70-6.10) L Hemoglobin 9.9 G/DL (14.2-18.0) L Hematocrit 30.0 % (42.0-52.0) L Mean Corpuscular Volume 84 FL (80-99) Mean Corpuscular Hemoglobin 27.7 PG (27.0-31.0) Mean Corpuscular Hemoglobin Concent 33.1 G/DL (32.0-36.0) Red Cell Distribution Width 14.1 % (11.6-14.8) Platelet Count 279 K/UL (150-450) Mean Platelet Volume 4.9 FL (6.5-10.1) L Neutrophils (%) (Auto) 67.4 % (45.0-75.0) Lymphocytes (%) (Auto) 22.0 % (20.0-45.0) Monocytes (%) (Auto) 7.4 % (1.0-10.0) Eosinophils (%) (Auto) 2.7 % (0.0-3.0) Basophils (%) (Auto) 0.5 % (0.0-2.0) Sodium Level 140 MMOL/L (136-145) Potassium Level 5.0 MMOL/L (3.5-5.1) Chloride Level 107 MMOL/L (98-107) Carbon Dioxide Level 20 MMOL/L (21-32) L Anion Gap 13 mmol/L (5-15) Blood Urea Nitrogen 21 mg/dL (7-18) H Creatinine 1.0 MG/DL (0.55-1.30) Estimat Glomerular Filtration Rate > 60 mL/min (>60) Glucose Level 86 MG/DL (74-106) Calcium Level 8.7 MG/DL (8.5-10.1) Total Bilirubin 0.4 MG/DL (0.2-1.0) Aspartate Amino Transf (AST/SGOT) 27 U/L (15-37) Alanine Aminotransferase (ALT/SGPT) 17 U/L (12-78) Alkaline Phosphatase 57 U/L (46-116) Pro-B-Type Natriuretic Peptide 2536 pg/mL (0-125) H Total Protein 7.0 G/DL (6.4-8.2) Albumin 1.7 G/DL (3.4-5.0) L Globulin 5.3 g/dL Albumin/Globulin Ratio 0.3 (1.0-2.7) L Plan Problems: (1) Tracheostomy in place Assessment & Plan: A dense retrocardiac opacification demonstrated with silhouetting of the left hemidiaphragm appearing worse than on the prior occasion. This was seen to some extent on the prior occasion. Heart size is normal. Lung volumes are low. Tracheostomy is noted. Bones are osteopenic. IMPRESSION: Retrocardiac density. Consider pneumonia although the finding was present to some extent on the prior occasion indicating a part of this may be chronic. Correlate clinically. Tracheostomy (2) Fever (3) Chronic respiratory failure (4) Vegetative state (5) Sepsis Assessment & Plan: Patient admitted with sepsis fevers, tachycardia, leukocytosis, abnormal labs, renal insufficiency. Antibiotics as per infectious disease Patient identified to have multiple wounds on admission some foul-smelling and malodorous with drainage. Wound evaluated bedside no acute active infection identified and source of sepsis unlikely from patient's wounds. Patient has chronic stage IV sacral decubitus ulcer with necrotic tissue and slough and eschar. No purulent drainage. Foul odor likely from incontinence. labs improved recovering exam stable We will continue to follow with recommendations Orders placed Thank you for let me participate in patient's care (6) MDRO (multiple drug resistant organisms) resistance (7) Feeding by G-tube Assessment & Plan: DAILY ESTIMATED NEEDS: Needs based on Critical care, wound/ 63.4kg abw 25-30 kcals/kg 7685-4877 total kcals 1.5-2 g protein/kg 95-127 g total protein 25-30 mL/kg 0561-1416 total fluid mLs NUTRITION DIAGNOSIS: (1) Swallowing difficulty R/T respiratory status as evidenced by pt trach-vent dep, on GT feeding. (2) Increased kcal/pro needs R/T wound healing as evidenced by pt admitted w/ advanced wounds, pending eval CURRENT TF:Glucerna 1.5 @ 30ml/hr x 22 hrs ENTERAL NUTRITION RECOMMENDATIONS: Glucerna 1.5 @ 55ml/hr x 22 hrs to provide 1210ml, 1815kcal, 100g prot, 918ml free water * Increase goal rate to 55ml/hr x 22 hrs * Hold 1 hour before and after Synthroid administration * HOB over 30 degrees/ water flush per MD ADDITIONAL RECOMMENDATIONS: * Per SNF: HT=64" FW=843trr (as of 07/30/19) * Wound healing: add Vit C 500mg BID add Dong 1pkt BID (mix w/ 4oz water) * Monitor lytes, replete as needed * Add NISS: h/o DM, on TF (8) Low grade fever (9) Severe anoxic-ischemic encephalopathy (10) Seizure disorder as sequela of cerebrovascular accident (11) Stage 4 skin ulcer of sacral region Assessment & Plan: Pt presented on admission with contractures and multiple pressure injuries. Full thickness pressure injury occipital. Base of wound is 40% necrotic with surrounding scattered slough and erythema. Small amt serous exudate. No odor noted. Edges are macerated and dark with surrounding erythema and denuded skin. (L)5.1cm x (W)8.2cm. Skin folds of neck very moist but no evidence of skin breakdown noted under collar of trach. Full thickness sacral pressure injury with undermined borders.(L)4.5cm x (W) 4.5cm x (D)1.5cm,undermining clockwise 3-11 by 1.3cm @3o'clock. Base of wound is 75% necrotic, 25% mixed slough and erythema. Wound is malodorous. Bone is visible at base of wound.Small amt seropurulent exudate noted. Non-blanching erythema without induration periwound. Resolving pressure injury lateral R tibia . scattered dry eschar with surrounding pink epithelial noted .Periwound without erythema or induration(L) 5cm x (W)0.9cm. Distal aspect of R foot is dusky. R 1st metatarsal is 75% necrotic,25% moist erythema.Oozing small amt haemopurulent exudate.Wound is malodorous. Borders are macerated(L)5.3cm x (W)4cm. R 2nd ,3rd,4th and 5th metatarsals noted to have dry eschar dorsally. Stable dry eschar dorsal R foot (L)0.4cm x (W)2.6cm. scattered dry scabs noted to [place] upper L thigh. No erythema noted at site. Lateral L foot extending to L 5th metatarsal head including plantar aspect is 90 % necrotic, with areas of fluctuance within base.5% surrounding moist erythema.Edges adherent to base of base of wound. Mild odor noted (L)4cm x (W) 14.5cm. Resolving pressure injury L lateral malleolus. Moist erythema with surrounding dry pink epithelial noted.(L)1cm x (W)0.8cm. Periwound without erythema or fluctuance. Both heels are boggy with scattered areas of hyperpigmentation from previous wounds. Tx.Plan: Cleanse wound Occipital with Dakin's 0.125% carlos a. Apply Dakin's Moistened Gauze. Cover with Optifoam drsg Daily and prn. Cleanse Sacral wound with Dakin's 0.125% carlos a.Loosely pack with Dakin's moistened kerlix. Apply Moisture Barrier Paste periwound. Cover with Optifoam drsg Daily and prn. Cleanse R 1st metatarsal with Dakin's 0.125% carlos a. Apply Dakin's moistened 2x2 Gauze. Apply Cavilon Skin Barrier periwound.Cover with ABD. Wrap with Kerlix Daily and prn. Swab Dorsal Aspects of R 2nd,3rd,4th and 5th metatarsals with Betadine Daily and prn. Cleanse wound lateral L foot with Dakin's 0.125% carlos a. Apply Dakin's moist gauze. Apply Cavilon Periwound. Cover with ABD pad and wrap with Kerlix Daily and prn. Apply Cavilon Skin Barrier to both heels. Cover each heel with Optifoam drsg. Change every 7 days and prn. Cover lateral R tibia with Optifoam drsg. Change every 7 days and prn. Air fluidized mattress. Reposition at least every 2hours or as tolerated. Place pillow between knees . Place pillow behind knees to off-load heels. Position head to side to relieve pressure off Occipital wound. Evens Kaur Aug 25, 2019 15:46
--- NOTE | 2019-08-25 15:51 | General Progress Note ---
Assessment/Plan Problem List: (1) Osteomyelitis of ankle or foot, right, acute ICD Codes: M86.171 - Other acute osteomyelitis, right ankle and foot SNOMED: 027690927 (2) Anemia ICD Codes: D64.9 - Anemia, unspecified SNOMED: 228663087 (3) Fever ICD Codes: R50.9 - Fever, unspecified SNOMED: 666788679 (4) Tracheostomy in place ICD Codes: Z93.0 - Tracheostomy status SNOMED: 212383302 (5) Chronic respiratory failure ICD Codes: J96.10 - Chronic respiratory failure, unspecified whether with hypoxia or hypercapnia SNOMED: 41326714 (6) Vegetative state ICD Codes: R40.3 - Persistent vegetative state SNOMED: 39253102, 857970872 (7) MDRO (multiple drug resistant organisms) resistance ICD Codes: Z16.35 - Resistance to multiple antimicrobial drugs SNOMED: 138494144 (8) Feeding by G-tube ICD Codes: Z93.1 - Gastrostomy status SNOMED: 780613433, 049903933 (9) Severe anoxic-ischemic encephalopathy ICD Codes: G93.1 - Anoxic brain damage, not elsewhere classified; I67.82 - Cerebral ischemia SNOMED: 418786929 (10) Seizure disorder as sequela of cerebrovascular accident ICD Codes: I69.398 - Other sequelae of cerebral infarction; G40.909 - Epilepsy , unspecified, not intractable, without status epilepticus SNOMED: 070939350635392 (11) Stage 4 skin ulcer of sacral region ICD Codes: L98.429 - Non-pressure chronic ulcer of back with unspecified severity SNOMED: 42429338, 115521880 (12) Sepsis ICD Codes: A41.9 - Sepsis, unspecified organism SNOMED: 23066027 Status: stable, not improved Assessment/Plan: cont iv abx per id follow up cultures vent support resp rx suctioning monitor h/h monitor for bleeding wound care sz rx dvt/stress ulcer prophylaxis dc planning on inhaled oral abd if ok with all Subjective ROS Limited/Unobtainable: Yes Constitutional: Reports: malaise, weakness HEENT: Reports: no symptoms Cardiovascular: Reports: no symptoms Respiratory: Reports: shortness of breath, sputum Gastrointestinal/Abdominal: Reports: difficulty swallowing Genitourinary: Reports: no symptoms Neurologic/Psychiatric: Reports: pre-existing deficit, seizure Endocrine: Reports: no symptoms Hematologic/Lymphatic: Reports: anemia Allergies: Coded Allergies: No Known Allergies (Unverified , 12/13/16) All Systems: reviewed and negative except above Subjective no events. stable on the vent. no fevers. bp stable/improved. no bleeding. remains on iv abx/inhaled. no szs. awake but nonverbal all noted. Objective Last 24 Hour Vital Signs Date Time Temp Pulse Resp B/P (MAP) Pulse Ox O2 Delivery O2 Flow Rate FiO2 08/25/19 14:58 68 12 28 08/25/19 12:56 68 13 28 08/25/19 12:00 Mechanical Ventilator 08/25/19 12:00 97.6 79 18 129/79 (96) 99 08/25/19 12:00 28 08/25/19 11:48 69 08/25/19 10:39 72 14 100 Mechanical Ventilator 28 73 15 28 08/25/19 09:28 67 134/77 08/25/19 08:49 67 13 28 08/25/19 08:00 Mechanical Ventilator 08/25/19 08:00 98.1 74 19 134/77 (96) 100 08/25/19 08:00 28 08/25/19 07:49 77 08/25/19 07:02 70 15 28 08/25/19 05:30 62 13 28 08/25/19 04:00 98.2 64 12 112/62 (79) 100 08/25/19 04:00 28 08/25/19 04:00 Mechanical Ventilator 08/25/19 03:32 61 08/25/19 03:30 65 13 28 08/25/19 01:30 68 13 28 08/25/19 00:00 Mechanical Ventilator 08/25/19 00:00 98.7 69 12 114/60 (78) 100 08/25/19 00:00 28 08/24/19 23:33 59 08/24/19 23:00 65 12 100 Mechanical Ventilator 28 69 12 28 08/24/19 21:30 60 12 28 08/24/19 20:00 28 08/24/19 20:00 Mechanical Ventilator 08/24/19 20:00 68 08/24/19 20:00 99.1 68 12 123/64 (83) 100 08/24/19 19:45 59 12 98 Mechanical Ventilator 28 08/24/19 19:30 59 12 28 08/24/19 18:00 64 102/52 08/24/19 16:55 61 13 28 08/24/19 16:00 61 08/24/19 16:00 97.9 64 18 102/52 (69) 100 08/24/19 16:00 28 08/24/19 16:00 Mechanical Ventilator Intake and Output 08/24/19 08/25/19 19:00 07:00 Intake Total 740 ml 750 ml Output Total 1000 ml 1400 ml Balance -260 ml -650 ml Intake Free Water 200 ml 150 ml IV Total 60 ml Tube Feeding 540 ml 540 ml Output Urine Total 1000 ml 1400 ml # Bowel Movements 2 Laboratory Tests 08/25/19 04:15: White Blood Count 7.3, Red Blood Count 3.58L, Hemoglobin 9.9L, Hematocrit 30.0L , Mean Corpuscular Volume 84, Mean Corpuscular Hemoglobin 27.7, Mean Corpuscular Hemoglobin Concent 33.1, Red Cell Distribution Width 14.1, Platelet Count 279, Mean Platelet Volume 4.9L, Neutrophils (%) (Auto) 67.4, Lymphocytes ( %) (Auto) 22.0, Monocytes (%) (Auto) 7.4, Eosinophils (%) (Auto) 2.7, Basophils (%) (Auto) 0.5, Sodium Level 140, Potassium Level 5.0, Chloride Level 107, Carbon Dioxide Level 20L, Anion Gap 13, Blood Urea Nitrogen 21H, Creatinine 1.0 , Estimat Glomerular Filtration Rate > 60, Glucose Level 86, Calcium Level 8.7, Total Bilirubin 0.4, Aspartate Amino Transf (AST/SGOT) 27, Alanine Aminotransferase (ALT/SGPT) 17, Alkaline Phosphatase 57, Pro-B-Type Natriuretic Peptide 2536H, Total Protein 7.0, Albumin 1.7L, Globulin 5.3, Albumin/Globulin Ratio 0.3L Height (Feet): 5 Height (Inches): 8.00 Weight (Pounds): 159 Objective General Appearance: WD/WN, lethargic, confused, thin Neck: non-tender, normal alignment, supple, normal inspection Cardiovascular: normal peripheral pulses, normal rate, regular rhythm Respiratory/Chest: chest wall non-tender, lungs clear, normal breath sounds, no respiratory distress, no accessory muscle use Abdomen: normal bowel sounds, non tender, soft, no organomegaly, no mass Edema: no edema noted Arm (L), no edema noted Arm (R), no edema noted Leg (L), no edema noted Leg (R), no edema noted Pedal (L), no edema noted Pedal (R), no edema noted Generalized Neurologic: disoriented, unresponsive, aphasia Skin: other - multiple wounds Amadeo Pleitez MD Aug 25, 2019 15:50
[2019-08-25 16:00] VITALS: BP 115/55
--- NOTE | 2019-08-25 17:37 | General Progress Note ---
Assessment/Plan Status: stable, not improved Assessment/Plan: Assessment - acute on chronic anemia - chronic resp failure / trach - encephalopathy - contractures / decubitus - poor prognosis / not candidate for GI w/u Recommendations - transfuse PRN - IV Iron replacement - PPI --> H2B - TF - Wound care - supportive measures Subjective Allergies: Coded Allergies: No Known Allergies (Unverified , 12/13/16) Subjective Obtunded, non verbal tolerating TF Objective Last 24 Hour Vital Signs Date Time Temp Pulse Resp B/P (MAP) Pulse Ox O2 Delivery O2 Flow Rate FiO2 08/25/19 16:37 67 14 28 08/25/19 16:00 28 08/25/19 16:00 Mechanical Ventilator 08/25/19 14:58 68 12 28 08/25/19 12:56 68 13 28 08/25/19 12:00 Mechanical Ventilator 08/25/19 12:00 97.6 79 18 129/79 (96) 99 08/25/19 12:00 28 08/25/19 11:48 69 08/25/19 10:39 72 14 100 Mechanical Ventilator 28 73 15 28 08/25/19 09:28 67 134/77 08/25/19 08:49 67 13 28 08/25/19 08:00 Mechanical Ventilator 08/25/19 08:00 98.1 74 19 134/77 (96) 100 08/25/19 08:00 28 08/25/19 07:49 77 08/25/19 07:02 70 15 28 08/25/19 05:30 62 13 28 08/25/19 04:00 98.2 64 12 112/62 (79) 100 08/25/19 04:00 28 08/25/19 04:00 Mechanical Ventilator 08/25/19 03:32 61 08/25/19 03:30 65 13 28 08/25/19 01:30 68 13 28 08/25/19 00:00 Mechanical Ventilator 08/25/19 00:00 98.7 69 12 114/60 (78) 100 08/25/19 00:00 28 08/24/19 23:33 59 08/24/19 23:00 65 12 100 Mechanical Ventilator 28 69 12 28 08/24/19 21:30 60 12 28 08/24/19 20:00 28 08/24/19 20:00 Mechanical Ventilator 08/24/19 20:00 68 3/2/20 20:00 99.1 68 12 123/64 (83) 100 08/24/19 19:45 59 12 98 Mechanical Ventilator 28 08/24/19 19:30 59 12 28 08/24/19 18:00 64 102/52 Intake and Output 08/24/19 08/25/19 19:00 07:00 Intake Total 740 ml 750 ml Output Total 1000 ml 1400 ml Balance -260 ml -650 ml Intake Free Water 200 ml 150 ml IV Total 60 ml Tube Feeding 540 ml 540 ml Output Urine Total 1000 ml 1400 ml # Bowel Movements 2 Laboratory Tests 08/25/19 04:15: White Blood Count 7.3, Red Blood Count 3.58L, Hemoglobin 9.9L, Hematocrit 30.0L , Mean Corpuscular Volume 84, Mean Corpuscular Hemoglobin 27.7, Mean Corpuscular Hemoglobin Concent 33.1, Red Cell Distribution Width 14.1, Platelet Count 279, Mean Platelet Volume 4.9L, Neutrophils (%) (Auto) 67.4, Lymphocytes ( %) (Auto) 22.0, Monocytes (%) (Auto) 7.4, Eosinophils (%) (Auto) 2.7, Basophils (%) (Auto) 0.5, Sodium Level 140, Potassium Level 5.0, Chloride Level 107, Carbon Dioxide Level 20L, Anion Gap 13, Blood Urea Nitrogen 21H, Creatinine 1.0 , Estimat Glomerular Filtration Rate > 60, Glucose Level 86, Calcium Level 8.7, Total Bilirubin 0.4, Aspartate Amino Transf (AST/SGOT) 27, Alanine Aminotransferase (ALT/SGPT) 17, Alkaline Phosphatase 57, Pro-B-Type Natriuretic Peptide 2536H, Total Protein 7.0, Albumin 1.7L, Globulin 5.3, Albumin/Globulin Ratio 0.3L Height (Feet): 5 Height (Inches): 8.00 Weight (Pounds): 159 Objective Debilitated WM, contracted NCAT (+) trach coarse Ronchi RR abd soft, GT (++) contracures Ted Rivero MD Aug 25, 2019 17:37
--- NOTE | 2019-08-25 19:33 | NUR ---
HAND-OFF: Report given to Yee Montana RN.
--- NOTE | 2019-08-25 19:34 | NUR ---
NURSE NOTES: received pt from Amelie SOW., pt is obtunded and opens eyes. pt is on vent, no SOB noted. Gtube site intact, clean, patent. condom cath is on and no leaking noted. Left hand 22G is intact, clean, and patent. call light within reach. bed at the lowest position,. will continue to monitor pt with plan of care.
[2019-08-25 20:00] VITALS: BP 116/62
[2019-08-25] MEDS: Tamsulosin 0.4mg cap ORAL SCH (20:56)
[2019-08-25] MEDS: Dyna-Hex 2% Top Sol 2oz TOPIC SCH (20:56)
[2019-08-25] MEDS: Iron Sucrose 100 MG in NS 55 ML IV SCH (21:26)
[2019-08-26] VITALS (7 sets, daily range): BP systolic 100–129; BP diastolic 48–86
--- NOTE | 2019-08-26 03:30 | Progress Note ---
DATE: 08/25/2019 CARDIOLOGY PROGRESS NOTE SUBJECTIVE: Echocardiogram with limited views was performed. The ejection fraction is grossly normal. The patient remains on ventilator support. Blood pressure parameters remained stable. Monitored rhythm, sinus. OBJECTIVE: HEENT: Thin secretions. LUNGS: Bilateral breath sounds. Few rhonchi. CARDIAC: Regular rhythm and rate. Normal S1, S2. ABDOMEN: Soft. G-tube intact. EXTREMITIES: No edema. LABORATORY DATA: White count 7.3 and hemoglobin 9.9. Pro-natriuretic peptide 2500. BUN 21, creatinine 1, sodium 140, potassium 5, and bicarb 20. IMPRESSION: 1. Acute on chronic diastolic congestive heart failure, improving to baseline. 2. Respiratory failure chronic with tracheostomy. 3. Health-care associated pneumonia, improving. 4. Severe sepsis, recovered. 5. Severe protein-calorie malnutrition. On G-tube feedings. 6. Metabolic acidosis and acute renal failure, resolving. PLAN: 1. Ventilator dependent. No weaning. 2. Beta-suze to continue as is. 3. Transition to oral iron replacement. 4. Additional diuresis. 5. Discharge planning. Kyaw Gonzalez M.D. DR: WIL JOB#: [id number] CC:
[2019-08-26] MEDS: LEVOTHYROXINE SODIUM 250 MCG GT SCH ×2 (06:21)
--- NOTE | 2019-08-26 07:02 | Urology Progress Note ---
Assessment/Plan Status: stable, not improved Assessment/Plan: 1. Right UVJ calculus. 2. Mild hydronephrosis. 3. Acute kidney injury, which is better. 4. Hematuria. 5. Pyuria. 6. Urinary incontinence. 7. Probable neurogenic bladder. monitor clinically flomax added abx as ordered consider nephrostomy monitor renal fxn d/w Dr. Pleitez Subjective Allergies: Coded Allergies: No Known Allergies (Unverified , 12/13/16) Subjective all noted, looks comfortable Objective Last 24 Hour Vital Signs Date Time Temp Pulse Resp B/P (MAP) Pulse Ox O2 Delivery O2 Flow Rate FiO2 08/26/19 05:27 85 16 28 08/26/19 04:00 Mechanical Ventilator 08/26/19 03:53 28 08/26/19 03:52 88 08/26/19 03:51 99.8 84 16 100/60 (73) 99 08/26/19 03:40 86 08/26/19 02:58 86 14 28 08/26/19 01:30 84 14 28 08/26/19 00:00 28 08/26/19 00:00 93 08/26/19 00:00 99.6 80 19 129/68 (88) 95 08/26/19 00:00 Mechanical Ventilator 08/25/19 23:28 79 17 96 Mechanical Ventilator 28 82 17 28 08/25/19 21:02 63 12 28 08/25/19 20:00 28 08/25/19 20:00 69 08/25/19 20:00 Mechanical Ventilator 08/25/19 20:00 98.9 69 19 116/62 (80) 97 08/25/19 19:30 65 13 28 08/25/19 18:00 55 08/25/19 16:37 67 14 28 08/25/19 16:00 98.4 75 19 115/55 (75) 100 08/25/19 16:00 28 08/25/19 16:00 Mechanical Ventilator 08/25/19 15:31 67 08/25/19 14:58 68 12 28 08/25/19 12:56 68 13 28 08/25/19 12:00 Mechanical Ventilator 08/25/19 12:00 97.6 79 18 129/79 (96) 99 08/25/19 12:00 28 08/25/19 11:48 69 08/25/19 10:39 72 14 100 Mechanical Ventilator 28 73 15 28 08/25/19 09:28 67 134/77 08/25/19 08:49 67 13 28 08/25/19 08:00 Mechanical Ventilator 08/25/19 08:00 98.1 74 19 134/77 (96) 100 08/25/19 08:00 28 08/25/19 07:49 77 Intake and Output 08/25/19 08/26/19 19:00 07:00 Intake Total 935.000 ml 405 ml Output Total 1400 ml 750 ml Balance -465.000 ml -345 ml IV Total 275.000 ml Tube Feeding 540 ml 405 ml Other 120 ml Output Urine Total 1400 ml 750 ml # Voids 3 # Bowel Movements 2 1 Microbiology Date/Time Source Procedure Growth Status 08/18/19 16:00 Blood Blood Culture - Final NO GROWTH AFTER 5 DAYS Complete 08/18/19 20:00 Sputum Gram Stain - Final Complete 08/18/19 20:00 Sputum Culture - Final Pseudomonas Aeruginosa - Mdr Usual Respiratory Mira Complete 08/18/19 15:00 Urine,Clean Catch Urine Culture - Final NO GROWTH AFTER 48 HOURS Complete 08/18/19 18:00 Rectum VRE Culture - Final Enterococcus Faecalis - Vre Complete Current Medications Medications (Trade) Dose Ordered Sig/Dolly Route PRN Reason Start Time Stop Time Status Last Admin Dose Admin Acetaminophen (Tylenol) 650 mg Q4H PRN GT Mild Pain/Temp > 100.5 08/19/19 14:15 09/18/19 14:14 08/22/19 09:33 Ascorbic Acid (Vitamin C) 500 mg TWICE A DAY GT 08/19/19 18:00 09/18/19 17:59 08/25/19 18:55 Atenolol (Tenormin) 12.5 mg BID GT 08/19/19 09:00 09/18/19 08:59 08/25/19 09:28 Chlorhexidine Gluconate (Leesa-Hex 2%) 1 applic DAILY@1999 TOPIC 08/24/19 20:00 09/23/19 19:59 08/25/19 20:56 Docusate Sodium (Colace) 100 mg DAILY GT 08/20/19 09:00 09/19/19 08:59 08/25/19 09:28 Famotidine (Pepcid) 40 mg DAILY GT 08/24/19 09:00 09/23/19 08:59 08/25/19 09:28 Gentamicin Sulfate (Gentamicin vial) 300 mg Q12HR@10,22 INH 08/21/19 22:00 08/28/19 23:59 08/25/19 23:28 Heparin Sodium (Porcine) (Heparin 5000 units/ml) 5,000 units EVERY 12 HOURS SUBQ 08/18/19 21:00 09/17/19 20:59 08/25/19 20:57 Levetiracetam (Keppra) 500 mg EVERY 12 HOURS GT 08/18/19 21:00 09/17/19 20:59 08/25/19 20:56 Levothyroxine Sodium (Synthroid) 250 mcg DAILY@0630 GT 08/20/19 06:30 09/19/19 06:29 08/26/19 06:21 Sennosides (Senokot) 17.2 mg DAILY GT 08/19/19 09:00 09/18/19 08:59 08/25/19 09:27 Sodium Hypochlorite (Dakin's Quarter Strength) 1 applic DAILY TOPIC 08/20/19 09:00 09/19/19 08:59 08/25/19 09:28 Tamsulosin HCl (Flomax) 0.4 mg BEDTIME ORAL 08/21/19 21:00 09/20/19 20:59 08/25/19 20:56 Vancomycin HCl (Vanco rx to dose) 1 ea DAILY PRN MISC Per rx protocol 08/18/19 20:00 09/17/19 19:59 Vancomycin HCl 750 mg/Sodium Chloride 275 ml @ 183.333 mls/hr Q24H IVPB 08/24/19 09:00 09/28/19 23:59 08/25/19 09:36 Height (Feet): 5 Height (Inches): 8.00 Weight (Pounds): 162 Objective exam stable condom cath, urine grossly yellow Bamshad,Vickey Moore MD Aug 26, 2019 07:02
--- NOTE | 2019-08-26 07:25 | NUR ---
RESPIRATORY NOTE: Patient received mechanically ventilated on PB 840 with current ordered vent settings. Vent alarms are functional and audible. There is a spare trach and ambu bag available at the bedside. Ventilator is connected to a red outlet. Patient appears comfortable at this time. Will continue to monitor.
--- NOTE | 2019-08-26 07:41 | NUR ---
HAND-OFF: Report given to bob Aquino RN. pt remains stable
--- NOTE | 2019-08-26 07:42 | NUR ---
NURSE NOTES: Report received from Rubén Forrester RN. Pt is awake in bed. Pt opens eyes spontaneously and able to respond to pain with facial grimace. Bilateral upper and lower extremities contracted. Sinus rhythm on engine monitor. Trach to vent. P 7, AC 12, TV 600, FiO2 28%, P 5. O2 sat 100%. Thick clear secretion from trach site noted and suctioned. G-tube in place receiving Glucerna 1.5 at 45cc/hr. No residual noted. Condom cath in place draining to gravity. No IV access and Dr Pleitez is aware according to Mitzy. Bed in lowest position. Side rails up x3. Will resume plan of care.
--- NOTE | 2019-08-26 08:10 | General Progress Note ---
Assessment/Plan Status: stable, not improved Assessment/Plan: Assessment - acute on chronic anemia - chronic resp failure / trach - encephalopathy - contractures / decubitus - poor prognosis / not candidate for GI w/u Recommendations - transfuse PRN - IV Iron replacement - PPI --> H2B - TF - Wound care - supportive measures Subjective Allergies: Coded Allergies: No Known Allergies (Unverified , 12/13/16) Subjective Obtunded, non verbal tolerating TF Objective Last 24 Hour Vital Signs Date Time Temp Pulse Resp B/P (MAP) Pulse Ox O2 Delivery O2 Flow Rate FiO2 08/26/19 07:21 91 18 28 08/26/19 05:27 85 16 28 08/26/19 04:00 Mechanical Ventilator 08/26/19 03:53 28 08/26/19 03:52 88 08/26/19 03:51 99.8 84 16 100/60 (73) 99 08/26/19 03:40 86 08/26/19 02:58 86 14 28 08/26/19 01:30 84 14 28 08/26/19 00:00 28 08/26/19 00:00 93 08/26/19 00:00 99.6 80 19 129/68 (88) 95 08/26/19 00:00 Mechanical Ventilator 08/25/19 23:28 79 17 96 Mechanical Ventilator 28 82 17 28 08/25/19 21:02 63 12 28 08/25/19 20:00 28 08/25/19 20:00 69 08/25/19 20:00 Mechanical Ventilator 08/25/19 20:00 98.9 69 19 116/62 (80) 97 08/25/19 19:30 65 13 28 08/25/19 18:00 55 08/25/19 16:37 67 14 28 08/25/19 16:00 98.4 75 19 115/55 (75) 100 08/25/19 16:00 28 08/25/19 16:00 Mechanical Ventilator 08/25/19 15:31 67 08/25/19 14:58 68 12 28 08/25/19 12:56 68 13 28 08/25/19 12:00 Mechanical Ventilator 08/25/19 12:00 97.6 79 18 129/79 (96) 99 08/25/19 12:00 28 08/25/19 11:48 69 08/25/19 10:39 72 14 100 Mechanical Ventilator 28 73 15 28 08/25/19 09:28 67 134/77 08/25/19 08:49 67 13 28 Intake and Output 08/25/19 08/26/19 19:00 07:00 Intake Total 935.000 ml 405 ml Output Total 1400 ml 750 ml Balance -465.000 ml -345 ml IV Total 275.000 ml Tube Feeding 540 ml 405 ml Other 120 ml Output Urine Total 1400 ml 750 ml # Voids 3 # Bowel Movements 2 1 Height (Feet): 5 Height (Inches): 8.00 Weight (Pounds): 162 Objective Debilitated WM, contracted NCAT (+) trach coarse Ronchi RR abd soft, GT (++) contracures Ted Rivero MD Aug 26, 2019 08:10
--- NOTE | 2019-08-26 08:17 | General Progress Note ---
Assessment/Plan Problem List: (1) Osteomyelitis of ankle or foot, right, acute ICD Codes: M86.171 - Other acute osteomyelitis, right ankle and foot SNOMED: 964033532 (2) Anemia ICD Codes: D64.9 - Anemia, unspecified SNOMED: 686768832 (3) Fever ICD Codes: R50.9 - Fever, unspecified SNOMED: 732839054 (4) Tracheostomy in place ICD Codes: Z93.0 - Tracheostomy status SNOMED: 501498803 (5) Chronic respiratory failure ICD Codes: J96.10 - Chronic respiratory failure, unspecified whether with hypoxia or hypercapnia SNOMED: 74870453 (6) Vegetative state ICD Codes: R40.3 - Persistent vegetative state SNOMED: 66039148, 281341663 (7) MDRO (multiple drug resistant organisms) resistance ICD Codes: Z16.35 - Resistance to multiple antimicrobial drugs SNOMED: 420283802 (8) Feeding by G-tube ICD Codes: Z93.1 - Gastrostomy status SNOMED: 925960795, 796463413 (9) Severe anoxic-ischemic encephalopathy ICD Codes: G93.1 - Anoxic brain damage, not elsewhere classified; I67.82 - Cerebral ischemia SNOMED: 849452179 (10) Seizure disorder as sequela of cerebrovascular accident ICD Codes: I69.398 - Other sequelae of cerebral infarction; G40.909 - Epilepsy , unspecified, not intractable, without status epilepticus SNOMED: 472174946478481 (11) Stage 4 skin ulcer of sacral region ICD Codes: L98.429 - Non-pressure chronic ulcer of back with unspecified severity SNOMED: 40961600, 764995769 (12) Sepsis ICD Codes: A41.9 - Sepsis, unspecified organism SNOMED: 72098625 Status: stable, not improved Assessment/Plan: cont iv abx per id follow up cultures vent support resp rx suctioning monitor h/h monitor for bleeding wound care sz rx dvt/stress ulcer prophylaxis dc planning on inhaled/iv abx if ok with all Subjective ROS Limited/Unobtainable: No Constitutional: Reports: malaise, weakness HEENT: Reports: no symptoms Cardiovascular: Reports: no symptoms Respiratory: Reports: sputum Gastrointestinal/Abdominal: Reports: difficulty swallowing Genitourinary: Reports: no symptoms Neurologic/Psychiatric: Reports: pre-existing deficit, seizure Endocrine: Reports: no symptoms Hematologic/Lymphatic: Reports: anemia Allergies: Coded Allergies: No Known Allergies (Unverified , 12/13/16) All Systems: reviewed and negative except above Subjective clinically stable/improved. wbc better. fevers better. no events. stable on the vent. bp stable/improved. no bleeding. remains on iv abx/inhaled. no szs. awake but nonverbal all noted. Objective Last 24 Hour Vital Signs Date Time Temp Pulse Resp B/P (MAP) Pulse Ox O2 Delivery O2 Flow Rate FiO2 08/26/19 07:21 91 18 28 08/26/19 05:27 85 16 28 08/26/19 04:00 Mechanical Ventilator 08/26/19 03:53 28 08/26/19 03:52 88 08/26/19 03:51 99.8 84 16 100/60 (73) 99 08/26/19 03:40 86 08/26/19 02:58 86 14 28 08/26/19 01:30 84 14 28 08/26/19 00:00 28 08/26/19 00:00 93 08/26/19 00:00 99.6 80 19 129/68 (88) 95 08/26/19 00:00 Mechanical Ventilator 08/25/19 23:28 79 17 96 Mechanical Ventilator 28 82 17 28 08/25/19 21:02 63 12 28 08/25/19 20:00 28 08/25/19 20:00 69 08/25/19 20:00 Mechanical Ventilator 08/25/19 20:00 98.9 69 19 116/62 (80) 97 08/25/19 19:30 65 13 28 08/25/19 18:00 55 08/25/19 16:37 67 14 28 08/25/19 16:00 98.4 75 19 115/55 (75) 100 08/25/19 16:00 28 08/25/19 16:00 Mechanical Ventilator 08/25/19 15:31 67 08/25/19 14:58 68 12 28 08/25/19 12:56 68 13 28 08/25/19 12:00 Mechanical Ventilator 08/25/19 12:00 97.6 79 18 129/79 (96) 99 08/25/19 12:00 28 08/25/19 11:48 69 08/25/19 10:39 72 14 100 Mechanical Ventilator 28 73 15 28 08/25/19 09:28 67 134/77 08/25/19 08:49 67 13 28 Intake and Output 08/25/19 08/26/19 19:00 07:00 Intake Total 935.000 ml 405 ml Output Total 1400 ml 750 ml Balance -465.000 ml -345 ml IV Total 275.000 ml Tube Feeding 540 ml 405 ml Other 120 ml Output Urine Total 1400 ml 750 ml # Voids 3 # Bowel Movements 2 1 Height (Feet): 5 Height (Inches): 8.00 Weight (Pounds): 162 Objective General Appearance: WD/WN, lethargic, confused, thin Neck: non-tender, normal alignment, supple, normal inspection Cardiovascular: normal peripheral pulses, normal rate, regular rhythm Respiratory/Chest: chest wall non-tender, lungs clear, normal breath sounds, no respiratory distress, no accessory muscle use Abdomen: normal bowel sounds, non tender, soft, no organomegaly, no mass Edema: no edema noted Arm (L), no edema noted Arm (R), no edema noted Leg (L), no edema noted Leg (R), no edema noted Pedal (L), no edema noted Pedal (R), no edema noted Generalized Neurologic: disoriented, unresponsive, aphasia Skin: other - multiple wounds Amadeo Pleitez MD Aug 26, 2019 08:17
[2019-08-26] MEDS ORDERED: VANCOMYCIN750 MG/150 IVPB (08:19)
[2019-08-26] MEDS: Sennosides 8.6mg tab GT SCH (08:55)
[2019-08-26] MEDS: Ascorbic Acid 500mg tab GT SCH ×2 (08:55→17:27)
[2019-08-26] MEDS: Atenolol 25mg tab GT SCH ×2 (08:55→17:27)
[2019-08-26] MEDS: Docusate 100mg/10ml Liq GT SCH (08:55)
[2019-08-26] MEDS: Heparin 5000 units/ml inj SUBQ SCH ×2 (08:56→20:58)
[2019-08-26] MEDS: Dakin's 0.125% Soln (Quarter Strength) 16oz TOPIC SCH (08:56)
--- NOTE | 2019-08-26 09:00 | NUR ---
NURSE NOTES: New IV inserted. Oral care done. Turned and repositioned. Will administer Vanco IV as scheduled.
[2019-08-26] MEDS: Vancomycin 750mg/NS 275ml IVPB SCH ×2 (09:26)
[2019-08-26] MEDS: Gentamicin for inhalation INH SCH ×2 (09:31→22:19)
--- NOTE | 2019-08-26 09:40 | NUR ---
*-* DISCHARGE PLANNING *-* PATIENT HAS BEEN REFERRED BACK TO: [facility] P: [phone] F: [phone] EFAX: [phone]
--- NOTE | 2019-08-26 10:10 | Pulmonology Progress Note ---
Assessment/Plan Assessment/Plan Pulmonary Progress Note HPI: Patient is a 68-year-old male admitted with fever, possible sepsis, the patient with multiple comorbidities including osteomyelitis. The patient is chronically ventilator dependent. Stable overnight, on IV antibiotics PAST MEDICAL HISTORY: Previous CVA, seizure history, COPD SVT, hyperlipidemia, chronic kidney disease, diabetes, reflux disease, chronic tracheostomy, ventilator dependent. SOCIAL HISTORY: Resides at [facility]. ROS:NA PHYSICAL EXAMINATION: GENERAL: Chronically ill-appearing male, wasted, contracted VITAL SIGNS NOTED HEENT: Moist mm NECK: Supple. Tracheostomy is in midline. No masses Chest: Occasional rhonchi Heart: HS1, HS2 normal, RRR EXTREMITIES: No edema. NEUROLOGICAL: Generally weak, no response to command. LABORATORY DATA: Reviewed CXR: Chronic left retrocardiac infiltrate IMPRESSION: 1. Chronic respiratory failure, ventilator dependent. 2. Probable pneumonia. 3. Anemia, possible GI bleed. 4. AMS due to chronic encephalopathy, previous CVA 5. Seizure history 6. COPD 7.Osteomyelitis RECOMMENDATIONS: Empiric antibiotics. Ventilator support. Adjust FIO2. Monitor secretions, Respiratory care. Monitor clinically. 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 Subjective ROS Limited/Unobtainable: No Allergies: Coded Allergies: No Known Allergies (Unverified , 12/13/16) Objective Last 24 Hour Vital Signs Date Time Temp Pulse Resp B/P (MAP) Pulse Ox O2 Delivery O2 Flow Rate FiO2 08/26/19 09:29 88 14 Mechanical Ventilator 28 28 08/26/19 08:55 89 125/86 08/26/19 08:43 97.8 65 20 109/48 (68) 100 08/26/19 08:00 99.7 89 18 125/86 (99) 100 08/26/19 07:21 91 18 28 08/26/19 05:27 85 16 28 08/26/19 04:00 Mechanical Ventilator 08/26/19 03:53 28 08/26/19 03:52 88 08/26/19 03:51 99.8 84 16 100/60 (73) 99 08/26/19 03:40 86 08/26/19 02:58 86 14 28 08/26/19 01:30 84 14 28 08/26/19 00:00 28 08/26/19 00:00 93 08/26/19 00:00 99.6 80 19 129/68 (88) 95 08/26/19 00:00 Mechanical Ventilator 08/25/19 23:28 79 17 96 Mechanical Ventilator 28 82 17 28 08/25/19 21:02 63 12 28 08/25/19 20:00 28 08/25/19 20:00 69 08/25/19 20:00 Mechanical Ventilator 08/25/19 20:00 98.9 69 19 116/62 (80) 97 08/25/19 19:30 65 13 28 08/25/19 18:00 55 08/25/19 16:37 67 14 28 08/25/19 16:00 98.4 75 19 115/55 (75) 100 08/25/19 16:00 28 08/25/19 16:00 Mechanical Ventilator 08/25/19 15:31 67 08/25/19 14:58 68 12 28 08/25/19 12:56 68 13 28 08/25/19 12:00 Mechanical Ventilator 08/25/19 12:00 97.6 79 18 129/79 (96) 99 08/25/19 12:00 28 08/25/19 11:48 69 08/25/19 10:39 72 14 100 Mechanical Ventilator 28 73 15 28 Intake and Output 08/25/19 08/26/19 19:00 07:00 Intake Total 935.000 ml 405 ml Output Total 1400 ml 750 ml Balance -465.000 ml -345 ml IV Total 275.000 ml Tube Feeding 540 ml 405 ml Other 120 ml Output Urine Total 1400 ml 750 ml # Voids 3 # Bowel Movements 2 1 Current Medications Medications (Trade) Dose Ordered Sig/Dolly Route PRN Reason Start Time Stop Time Status Last Admin Dose Admin Acetaminophen (Tylenol) 650 mg Q4H PRN GT Mild Pain/Temp > 100.5 08/19/19 14:15 09/18/19 14:14 08/22/19 09:33 Ascorbic Acid (Vitamin C) 500 mg TWICE A DAY GT 08/19/19 18:00 09/18/19 17:59 08/26/19 08:55 Atenolol (Tenormin) 12.5 mg BID GT 08/19/19 09:00 09/18/19 08:59 08/26/19 08:55 Chlorhexidine Gluconate (Leesa-Hex 2%) 1 applic DAILY@1999 TOPIC 08/24/19 20:00 09/23/19 19:59 3/3/20 20:56 Docusate Sodium (Colace) 100 mg DAILY GT 08/20/19 09:00 09/19/19 08:59 08/25/19 09:28 Famotidine (Pepcid) 40 mg DAILY GT 08/24/19 09:00 09/23/19 08:59 08/26/19 08:54 Gentamicin Sulfate (Gentamicin vial) 300 mg Q12HR@10,22 INH 08/21/19 22:00 08/28/19 23:59 08/26/19 09:31 Heparin Sodium (Porcine) (Heparin 5000 units/ml) 5,000 units EVERY 12 HOURS SUBQ 08/18/19 21:00 09/17/19 20:59 08/26/19 08:56 Levetiracetam (Keppra) 500 mg EVERY 12 HOURS GT 08/18/19 21:00 09/17/19 20:59 08/26/19 08:55 Levothyroxine Sodium (Synthroid) 250 mcg DAILY@0630 GT 08/20/19 06:30 09/19/19 06:29 08/26/19 06:21 Sennosides (Senokot) 17.2 mg DAILY GT 08/19/19 09:00 09/18/19 08:59 08/25/19 09:27 Sodium Hypochlorite (Dakin's Quarter Strength) 1 applic DAILY TOPIC 08/20/19 09:00 09/19/19 08:59 08/26/19 08:56 Tamsulosin HCl (Flomax) 0.4 mg BEDTIME ORAL 08/21/19 21:00 09/20/19 20:59 08/25/19 20:56 Vancomycin HCl (Vanco rx to dose) 1 ea DAILY PRN MISC Per rx protocol 08/18/19 20:00 09/17/19 19:59 Vancomycin HCl 750 mg/Sodium Chloride 275 ml @ 183.333 mls/hr Q24H IVPB 08/24/19 09:00 09/28/19 23:59 08/26/19 09:26 Kyaw Boyle MD Aug 26, 2019 10:10
--- NOTE | 2019-08-26 10:20 | NUR ---
NURSE NOTES: A new IV got occluded and removed. Will attempt a new peripheral IV again. Wound care nurse assessed the wounds and changed dressing as per protocol. Turned and repositioned pt.
--- NOTE | 2019-08-26 10:24 | Infectious Diseases Prog Note ---
Assessment/Plan Assessment/Plan antibiotics : vancomycin iv, inhaled gentamicin A 1. Pseudomonas pneumonia. 2. Leukocytosis is improving. 3. Respiratory failure. 4. Developmental delay. 5. Right foot osteomyelitis. 6. Renal stones. P 1. continue iv vancomycin 33 more days 2. continue inhaled gentamicin 1 more day 3. will follow up cultures Subjective ROS Limited/Unobtainable: Yes Allergies: Coded Allergies: No Known Allergies (Unverified , 12/13/16) Objective Vital Signs Last 24 Hour Vital Signs Date Time Temp Pulse Resp B/P (MAP) Pulse Ox O2 Delivery O2 Flow Rate FiO2 08/26/19 09:29 88 14 Mechanical Ventilator 28 28 08/26/19 08:55 89 125/86 08/26/19 08:43 97.8 65 20 109/48 (68) 100 08/26/19 08:00 99.7 89 18 125/86 (99) 100 08/26/19 08:00 Mechanical Ventilator 08/26/19 07:37 83 08/26/19 07:21 91 18 28 08/26/19 05:27 85 16 28 08/26/19 04:00 Mechanical Ventilator 08/26/19 03:53 28 08/26/19 03:52 88 08/26/19 03:51 99.8 84 16 100/60 (73) 99 08/26/19 03:40 86 08/26/19 02:58 86 14 28 08/26/19 01:30 84 14 28 08/26/19 00:00 28 08/26/19 00:00 93 08/26/19 00:00 99.6 80 19 129/68 (88) 95 08/26/19 00:00 Mechanical Ventilator 08/25/19 23:28 79 17 96 Mechanical Ventilator 28 82 17 28 08/25/19 21:02 63 12 28 08/25/19 20:00 28 08/25/19 20:00 69 08/25/19 20:00 Mechanical Ventilator 08/25/19 20:00 98.9 69 19 116/62 (80) 97 08/25/19 19:30 65 13 28 08/25/19 18:00 55 08/25/19 16:37 67 14 28 08/25/19 16:00 98.4 75 19 115/55 (75) 100 08/25/19 16:00 28 08/25/19 16:00 Mechanical Ventilator 08/25/19 15:31 67 08/25/19 14:58 68 12 28 08/25/19 12:56 68 13 28 08/25/19 12:00 Mechanical Ventilator 08/25/19 12:00 97.6 79 18 129/79 (96) 99 08/25/19 12:00 28 08/25/19 11:48 69 08/25/19 10:39 72 14 100 Mechanical Ventilator 28 73 15 28 Height (Feet): 5 Height (Inches): 8.00 Weight (Pounds): 162 HEENT: status post trach Respiratory/Chest: lungs clear Cardiovascular: normal rate, regular rhythm, no gallop/murmur Abdomen: soft, non tender, other - GT Extremities: no edema Current Medications Medications (Trade) Dose Ordered Sig/Dolly Route PRN Reason Start Time Stop Time Status Last Admin Dose Admin Acetaminophen (Tylenol) 650 mg Q4H PRN GT Mild Pain/Temp > 100.5 08/19/19 14:15 09/18/19 14:14 08/22/19 09:33 Ascorbic Acid (Vitamin C) 500 mg TWICE A DAY GT 08/19/19 18:00 09/18/19 17:59 08/26/19 08:55 Atenolol (Tenormin) 12.5 mg BID GT 08/19/19 09:00 09/18/19 08:59 08/26/19 08:55 Chlorhexidine Gluconate (Leesa-Hex 2%) 1 applic DAILY@1999 TOPIC 08/24/19 20:00 09/23/19 19:59 08/25/19 20:56 Docusate Sodium (Colace) 100 mg DAILY GT 08/20/19 09:00 09/19/19 08:59 08/25/19 09:28 Famotidine (Pepcid) 40 mg DAILY GT 08/24/19 09:00 09/23/19 08:59 08/26/19 08:54 Gentamicin Sulfate (Gentamicin vial) 300 mg Q12HR@10,22 INH 08/26/19 22:00 08/28/19 23:59 Heparin Sodium (Porcine) (Heparin 5000 units/ml) 5,000 units EVERY 12 HOURS SUBQ 08/18/19 21:00 09/17/19 20:59 3/4/20 08:56 Levetiracetam (Keppra) 500 mg EVERY 12 HOURS GT 08/18/19 21:00 09/17/19 20:59 08/26/19 08:55 Levothyroxine Sodium (Synthroid) 250 mcg DAILY@0630 GT 08/20/19 06:30 09/19/19 06:29 08/26/19 06:21 Sennosides (Senokot) 17.2 mg DAILY GT 08/19/19 09:00 09/18/19 08:59 08/25/19 09:27 Sodium Hypochlorite (Dakin's Quarter Strength) 1 applic DAILY TOPIC 08/20/19 09:00 09/19/19 08:59 08/26/19 08:56 Tamsulosin HCl (Flomax) 0.4 mg BEDTIME ORAL 08/21/19 21:00 09/20/19 20:59 08/25/19 20:56 Vancomycin HCl (Vanco rx to dose) 1 ea DAILY PRN MISC Per rx protocol 08/18/19 20:00 09/17/19 19:59 Vancomycin HCl 750 mg/Sodium Chloride 275 ml @ 183.333 mls/hr Q24H IVPB 08/24/19 09:00 09/28/19 23:59 08/26/19 09:26 Indigo Harris MD Aug 26, 2019 10:24
--- NOTE | 2019-08-26 14:37 | NUR ---
NURSE NOTES: Notified Dr Pleitez that radiology was not able to place PICC line and nurses were not able to put peripheral lines since patient is very contracted and hard to stick.
--- NOTE | 2019-08-26 14:40 | Surgery Progress Note ---
Surgery Progress Note Subjective Additional Comments no acute events comfortable stable Objective Last 24 Hour Vital Signs Date Time Temp Pulse Resp B/P (MAP) Pulse Ox O2 Delivery O2 Flow Rate FiO2 08/26/19 13:03 90 19 28 08/26/19 11:19 77 13 28 08/26/19 09:29 88 14 Mechanical Ventilator 28 28 08/26/19 08:55 89 125/86 08/26/19 08:43 97.8 65 20 109/48 (68) 100 08/26/19 08:00 99.7 89 18 125/86 (99) 100 08/26/19 08:00 Mechanical Ventilator 08/26/19 07:37 83 08/26/19 07:21 91 18 28 08/26/19 05:27 85 16 28 08/26/19 04:00 Mechanical Ventilator 08/26/19 03:53 28 08/26/19 03:52 88 08/26/19 03:51 99.8 84 16 100/60 (73) 99 08/26/19 03:40 86 08/26/19 02:58 86 14 28 08/26/19 01:30 84 14 28 08/26/19 00:00 28 08/26/19 00:00 93 08/26/19 00:00 99.6 80 19 129/68 (88) 95 08/26/19 00:00 Mechanical Ventilator 08/25/19 23:28 79 17 96 Mechanical Ventilator 28 82 17 28 08/25/19 21:02 63 12 28 08/25/19 20:00 28 08/25/19 20:00 69 08/25/19 20:00 Mechanical Ventilator 08/25/19 20:00 98.9 69 19 116/62 (80) 97 08/25/19 19:30 65 13 28 08/25/19 18:00 55 08/25/19 16:37 67 14 28 08/25/19 16:00 98.4 75 19 115/55 (75) 100 08/25/19 16:00 28 08/25/19 16:00 Mechanical Ventilator 08/25/19 15:31 67 08/25/19 14:58 68 12 28 I&O Intake and Output 08/25/19 08/26/19 19:00 07:00 Intake Total 935.000 ml 405 ml Output Total 1400 ml 750 ml Balance -465.000 ml -345 ml IV Total 275.000 ml Tube Feeding 540 ml 405 ml Other 120 ml Output Urine Total 1400 ml 750 ml # Voids 3 # Bowel Movements 2 1 Dressing: other Wound: other Drains: other Cardiovascular: RSR Respiratory: decreased breath sounds Abdomen: soft, non-tender, present bowel sounds, other, non-distended Extremities: no tenderness, no cyanosis, other Plan Problems: (1) Tracheostomy in place Assessment & Plan: A dense retrocardiac opacification demonstrated with silhouetting of the left hemidiaphragm appearing worse than on the prior occasion. This was seen to some extent on the prior occasion. Heart size is normal. Lung volumes are low. Tracheostomy is noted. Bones are osteopenic. IMPRESSION: Retrocardiac density. Consider pneumonia although the finding was present to some extent on the prior occasion indicating a part of this may be chronic. Correlate clinically. Tracheostomy (2) Fever (3) Chronic respiratory failure (4) Vegetative state (5) Sepsis Assessment & Plan: Patient admitted with sepsis fevers, tachycardia, leukocytosis, abnormal labs, renal insufficiency. Antibiotics as per infectious disease Patient identified to have multiple wounds on admission some foul-smelling and malodorous with drainage. Wound evaluated bedside no acute active infection identified and source of sepsis unlikely from patient's wounds. Patient has chronic stage IV sacral decubitus ulcer with necrotic tissue and slough and eschar. No purulent drainage. Foul odor likely from incontinence. labs improved recovering exam stable We will continue to follow with recommendations Orders placed improving labs noted recovering Thank you for let me participate in patient's care (6) MDRO (multiple drug resistant organisms) resistance (7) Feeding by G-tube Assessment & Plan: DAILY ESTIMATED NEEDS: Needs based on Critical care, wound/ 63.4kg abw 25-30 kcals/kg 7127-7893 total kcals 1.5-2 g protein/kg 95-127 g total protein 25-30 mL/kg 1422-1321 total fluid mLs NUTRITION DIAGNOSIS: (1) Swallowing difficulty R/T respiratory status as evidenced by pt trach-vent dep, on GT feeding. (2) Increased kcal/pro needs R/T wound healing as evidenced by pt admitted w/ advanced wounds, pending eval CURRENT TF:Glucerna 1.5 @ 30ml/hr x 22 hrs ENTERAL NUTRITION RECOMMENDATIONS: Glucerna 1.5 @ 55ml/hr x 22 hrs to provide 1210ml, 1815kcal, 100g prot, 918ml free water * Increase goal rate to 55ml/hr x 22 hrs * Hold 1 hour before and after Synthroid administration * HOB over 30 degrees/ water flush per MD ADDITIONAL RECOMMENDATIONS: * Per SNF: HT=64" RA=677ozz (as of 07/30/19) * Wound healing: add Vit C 500mg BID add Dong 1pkt BID (mix w/ 4oz water) * Monitor lytes, replete as needed * Add NISS: h/o DM, on TF (8) Low grade fever (9) Severe anoxic-ischemic encephalopathy (10) Seizure disorder as sequela of cerebrovascular accident (11) Stage 4 skin ulcer of sacral region Assessment & Plan: Pt presented on admission with contractures and multiple pressure injuries. Full thickness pressure injury occipital. Base of wound is 40% necrotic with surrounding scattered slough and erythema. Small amt serous exudate. No odor noted. Edges are macerated and dark with surrounding erythema and denuded skin. (L)5.1cm x (W)8.2cm. Skin folds of neck very moist but no evidence of skin breakdown noted under collar of trach. Full thickness sacral pressure injury with undermined borders.(L)4.5cm x (W) 4.5cm x (D)1.5cm,undermining clockwise 3-11 by 1.3cm @3o'clock. Base of wound is 75% necrotic, 25% mixed slough and erythema. Wound is malodorous. Bone is visible at base of wound.Small amt seropurulent exudate noted. Non-blanching erythema without induration periwound. Resolving pressure injury lateral R tibia . scattered dry eschar with surrounding pink epithelial noted .Periwound without erythema or induration(L) 5cm x (W)0.9cm. Distal aspect of R foot is dusky. R 1st metatarsal is 75% necrotic,25% moist erythema.Oozing small amt haemopurulent exudate.Wound is malodorous. Borders are macerated(L)5.3cm x (W)4cm. R 2nd ,3rd,4th and 5th metatarsals noted to have dry eschar dorsally. Stable dry eschar dorsal R foot (L)0.4cm x (W)2.6cm. scattered dry scabs noted to [place] upper L thigh. No erythema noted at site. Lateral L foot extending to L 5th metatarsal head including plantar aspect is 90 % necrotic, with areas of fluctuance within base.5% surrounding moist erythema.Edges adherent to base of base of wound. Mild odor noted (L)4cm x (W) 14.5cm. Resolving pressure injury L lateral malleolus. Moist erythema with surrounding dry pink epithelial noted.(L)1cm x (W)0.8cm. Periwound without erythema or fluctuance. Both heels are boggy with scattered areas of hyperpigmentation from previous wounds. Tx.Plan: Cleanse wound Occipital with Dakin's 0.125% carlos a. Apply Dakin's Moistened Gauze. Cover with Optifoam drsg Daily and prn. Cleanse Sacral wound with Dakin's 0.125% carlos a.Loosely pack with Dakin's moistened kerlix. Apply Moisture Barrier Paste periwound. Cover with Optifoam drsg Daily and prn. Cleanse R 1st metatarsal with Dakin's 0.125% carlos a. Apply Dakin's moistened 2x2 Gauze. Apply Cavilon Skin Barrier periwound.Cover with ABD. Wrap with Kerlix Daily and prn. Swab Dorsal Aspects of R 2nd,3rd,4th and 5th metatarsals with Betadine Daily and prn. Cleanse wound lateral L foot with Dakin's 0.125% carlos a. Apply Dakin's moist gauze. Apply Cavilon Periwound. Cover with ABD pad and wrap with Kerlix Daily and prn. Apply Cavilon Skin Barrier to both heels. Cover each heel with Optifoam drsg. Change every 7 days and prn. Cover lateral R tibia with Optifoam drsg. Change every 7 days and prn. Air fluidized mattress. Reposition at least every 2hours or as tolerated. Place pillow between knees . Place pillow behind knees to off-load heels. Position head to side to relieve pressure off Occipital wound. Evens Kaur Aug 26, 2019 14:40
--- NOTE | 2019-08-26 14:56 | NUR ---
NURSE NOTES:WOUND CARE FOLLOW-UP NOTES:Full thickness pressure injury Occipital resolving. Bioburden removed with Gentle friction. Base of wound now 80% beefy granulation,20% soft necrosis. Edges adherent to base of wound.No odor or exudate noted.Skin assessed under tracheal collar. Skin is moist L side of neck but skin is intact. No erythema noted.(L)4.5cm x (W)6.6cm Full thickness sacral pressure injury. Base of wound is 40% soft necrosis,60% mixed pink granulation and biofilm (L)4.4cm x (W)4.1cm x (D)2.3cm. Wound is malodorous. Small amt brown exudate noted.In addition to Sacral wound scattered partial thickness wounds noted periwound. Pressure injury lateral R tibia resolving. Base of wound 90% pink epithelial,10% stable dry necrosis. Stable dry eschar noted to R hallux.(L)0.6cm x (W)0.5cm.No evidence of further skin breakdown periwound. R 1st metatarsal Black with unstageable pressure ulcer that is 100% soft necrosis laterally extending into plantar aspect.Wound is malodorous. Distal/dorsal R foot is dusky. Non-blanching erythema with fluctuance medial/lateral R foot(L)2.5cm x (W)2cm. Resolving DTPI distal/lateral R foot . Dry brown eschar at base of wound (L)0.3cm x (W)0.4cm. No erythema or fluctuance periwound. Resolving DTPI lateral R 5th metatarsal .Dry brown eschar at base of injury(L)0.3cm x (W)0.4cm. Stable dry eschar dorsal R 2nd metatarsal. DTPI L hallux(L)1cm x (W)0.3cm. Base of wound is maroon and indurated with surrounding non-blanching erythema . Unstageable pressure injury latera/plantar L foot. 100% soft necrosis .Marginal erythema along borders. No odor noted.(L)3.7cm x (W)8.8cm. Wound Tx are effective and continued as ordered. Pt has an APM/KARINA mattress overlay.All wound prevention protocls continued as care planned.
--- NOTE | 2019-08-26 15:46 | NUR ---
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 97.8 HR 65 RR 20 B/P 109/58 AC 12 TV 600 FIO2 285 PEEP 5 IS: LASIX IV X 1 VANCO IV GENTAMICIN INH STEP DOWN STATUS
--- NOTE | 2019-08-26 17:01 | NUR ---
NURSE NOTES: Dr Pleitez will call Dr Ceballos, Radiologist for PICC line as per Joseline, Charge nurse. Turned and repositioned pt. No acute distress noted.
--- NOTE | 2019-08-26 18:08 | General Progress Note ---
Assessment/Plan Status: stable, not improved Assessment/Plan: Assessment - acute on chronic anemia - chronic resp failure / trach - encephalopathy - contractures / decubitus - poor prognosis / not candidate for GI w/u Recommendations - transfuse PRN - IV Iron replacement - PPI --> H2B - TF - Wound care - supportive measures Subjective Allergies: Coded Allergies: No Known Allergies (Unverified , 12/13/16) Subjective Obtunded, non verbal tolerating TF Objective Last 24 Hour Vital Signs Date Time Temp Pulse Resp B/P (MAP) Pulse Ox O2 Delivery O2 Flow Rate FiO2 08/26/19 17:27 71 114/67 08/26/19 17:15 63 12 28 08/26/19 16:00 Mechanical Ventilator 08/26/19 16:00 98.5 71 12 114/67 (83) 100 08/26/19 15:31 76 08/26/19 15:04 72 12 28 08/26/19 13:03 90 19 28 08/26/19 12:00 Mechanical Ventilator 08/26/19 12:00 99.1 77 12 122/72 (89) 100 08/26/19 11:40 77 08/26/19 11:19 77 13 28 08/26/19 09:29 88 14 100 Mechanical Ventilator 28 89 20 28 08/26/19 08:55 89 125/86 08/26/19 08:43 97.8 65 20 109/48 (68) 100 08/26/19 08:00 99.7 89 18 125/86 (99) 100 08/26/19 08:00 Mechanical Ventilator 08/26/19 07:37 83 08/26/19 07:21 91 18 28 08/26/19 05:27 85 16 28 08/26/19 04:00 Mechanical Ventilator 08/26/19 03:53 28 08/26/19 03:52 88 08/26/19 03:51 99.8 84 16 100/60 (73) 99 08/26/19 03:40 86 08/26/19 02:58 86 14 28 08/26/19 01:30 84 14 28 08/26/19 00:00 28 08/26/19 00:00 93 08/26/19 00:00 99.6 80 19 129/68 (88) 95 08/26/19 00:00 Mechanical Ventilator 3/3/20 23:28 79 17 96 Mechanical Ventilator 28 82 17 28 08/25/19 21:02 63 12 28 08/25/19 20:00 28 08/25/19 20:00 69 08/25/19 20:00 Mechanical Ventilator 08/25/19 20:00 98.9 69 19 116/62 (80) 97 08/25/19 19:30 65 13 28 Intake and Output 08/25/19 08/26/19 18:59 06:59 Intake Total 875.000 ml 510 ml Output Total 2150 ml Balance 875.000 ml -1640 ml IV Total 275.000 ml Tube Feeding 540 ml 450 ml Other 60 ml 60 ml Output Urine Total 2150 ml # Voids 3 # Bowel Movements 2 1 Height (Feet): 5 Height (Inches): 8.00 Weight (Pounds): 162 Objective Debilitated WM, contracted NCAT (+) trach coarse Ronchi RR abd soft, GT (++) contracures Ted Rivero MD Aug 26, 2019 18:08
--- NOTE | 2019-08-26 19:10 | NUR ---
HAND-OFF: Report given to Shay Peralta RN.
--- NOTE | 2019-08-26 19:40 | NUR ---
NURSE NOTES: LE: PATIENT OPEN EYES, DID NOT FOLLOW COMMANDS, ON TRACH TO VENT, AC 12/TV 600/FIO2 28%/ PEEP 5, O2 SATURATION 100% NOTED, G TUBE INTACT AND PATENT, ONGOING GLUCERNA 1.5 AT 45ML/HR, NO RESIDUE NOTED, KEPT HOB OVER 30 DEGREES, ASPIRATION PRECAUTION AND SEIZURE PRECAUTION, ABDOMEN SOFT, NO BM STATUS, CONDOM CATHETER, YELLOW URINE OUTED, PPL TO LEFT THUMB INTACT AND PATENT, ALL EXTREMITIES CONTRACTED, ON P200 BED, MADE LOWER BED POSITION, ON BED ALARM AND LOCKED, WILL CONTINUE TO MONITOR.
[2019-08-26] MEDS: Dyna-Hex 2% Top Sol 2oz TOPIC SCH (20:57)
[2019-08-26] MEDS: Tamsulosin 0.4mg cap ORAL SCH (20:57)
--- NOTE | 2019-08-26 22:30 | NUR ---
NURSE NOTES: LE: PATIENT ASLEEP STATUS, NO PAIN OR SOB NOTED.
--- NOTE | 2019-08-26 23:59 | NUR ---
NURSE NOTES: PATIENT ASLEEP STATUS, NO PAIN OR SOB NOTED, TOLERATED G TUBE FEEDING, NO RESIDUE NOTED, WILL CONTINUE TO MONITOR.
[2019-08-27] VITALS: BP 100/60
--- NOTE | 2019-08-27 02:20 | NUR ---
NURSE NOTES: LE: SEEN THE PATIENT BY DR. HARDIN, MADE NEW ORDER.
--- NOTE | 2019-08-27 03:14 | Progress Note ---
DATE: 08/26/2019 CARDIOLOGY PROGRESS NOTE SUBJECTIVE: The patient remains on ventilator support. He continues on antimicrobials by inhalation. OBJECTIVE: VITAL SIGNS: Blood pressure 109/64, heart rate 73, and respiratory rate 14. No fevers. LUNGS: Bilateral breath sounds. Thin trach secretions. HEART: Regular rhythm and rate. Normal S1, S2. ABDOMEN: Soft. G-tube intact. EXTREMITIES: No edema. LABORATORY DATA: No new laboratory studies. IMPRESSION: 1. Healthcare-associated Pseudomonas pneumonia, recovering. 2. Respiratory failure, on ventilator support. 3. Osteomyelitis, on IV antimicrobials and wound care. 4. Shock due to sepsis, resolved. 5. Metabolic acidosis and acute renal failure, improving. 6. Acute on chronic diastolic congestive heart failure, now clinically compensated. PLAN: 1. Maintain beta-suze. 2. Diuresis based on clinical parameters. 3. Trend natriuretic peptide assay. 4. Ventilator support. Kyaw Gonzalez M.D. DR: WIL JOB#: [id number] CC:
[2019-08-27 04:00] VITALS: BP 115/63
--- NOTE | 2019-08-27 04:10 | NUR ---
NURSE NOTES: MORNING CARE WAS DONE, NO BM STATUS.
[2019-08-27 04:47] LABS: BASOPHILS % (AUTO) 0.4 % (0.0-2.0); HEMATOCRIT 29.5 % (42.0-52.0); HEMOGLOBIN 9.9 G/DL (14.2-18.0); LYMPHOCYTES % (AUTO) 14.8 % (20.0-45.0); MEAN CORPUSCULAR VOLUME 83 FL (80-99); MONOCYTES % (AUTO) 7.8 % (1.0-10.0); NEUTROPHILS % (AUTO) 75.1 % (45.0-75.0); PLATELET COUNT 353 K/UL (150-450); RED BLOOD COUNT 3.55 M/UL (4.70-6.10); RED CELL DISTRIBUTION WIDTH 14.4 % (11.6-14.8); WHITE BLOOD COUNT 11.8 K/UL (4.8-10.8)
[2019-08-27 05:18] LABS: ANION GAP 8 mmol/L (5-15); BLOOD UREA NITROGEN 23 mg/dL (7-18); CALCIUM 8.8 MG/DL (8.5-10.1); CARBON DIOXIDE 24 MMOL/L (21-32); CHLORIDE 103 MMOL/L (98-107); SODIUM 135 MMOL/L (136-145)
[2019-08-27] MEDS: LEVOTHYROXINE SODIUM 250 MCG GT SCH ×2 (05:59)
--- NOTE | 2019-08-27 06:16 | NUR ---
NURSE NOTES: NO ACUTE DISTRESS NOTED AT THIS SHIFT.
--- NOTE | 2019-08-27 07:32 | NUR ---
HAND-OFF: Report given to JUANJOSE LEÓN.
--- NOTE | 2019-08-27 08:00 | NUR ---
NURSE NOTES: Received change of shift report from Fabian RN. Pt is nonverbal, opens eyes, however does not follow commands. Pt is on trach to vent Portex 7.0 with settings AC12, VT600, Peep 5.0, FIO2 28% at 100% with bilateral rhonchi/diminished lung sounds. SR on Tele monitor, HR 70's with weak peripheral pulses. Temp 98.6F axillary. Pt has left thumb #[id number] peripheral IV access, TKO, patent/intact. GT with feeding Glucerna 1.5 at goal rate of 45/hour, with no residual noted. Condom cath is present, draining clear/yellow urine. Skin has multiple wounds, including occipital, sacral, and bilateral lower extremities, covered with dressings. Pt is on P200 pressure releasing mattress. HOB at 30degrees, bed locked, three side rails up, and call light is placed within reach. Will continue with plan of care.
[2019-08-27 08:23] VITALS: BP 103/60
[2019-08-27] MEDS: Atenolol 25mg tab GT SCH ×2 (09:00→17:32)
--- NOTE | 2019-08-27 09:19 | Urology Progress Note ---
Assessment/Plan Status: stable, not improved Assessment/Plan: 1. Right UVJ calculus. 2. Mild hydronephrosis. 3. Acute kidney injury, which is better. 4. Hematuria. 5. Pyuria. 6. Urinary incontinence. 7. Probable neurogenic bladder. monitor clinically flomax added abx as ordered consider nephrostomy monitor renal fxn Subjective Allergies: Coded Allergies: No Known Allergies (Unverified , 12/13/16) Subjective all noted, looks comfortable Objective Last 24 Hour Vital Signs Date Time Temp Pulse Resp B/P (MAP) Pulse Ox O2 Delivery O2 Flow Rate FiO2 08/27/19 09:05 74 13 28 08/27/19 08:23 97.7 79 12 103/60 (74) 100 08/27/19 07:29 74 12 28 08/27/19 04:59 71 12 28 08/27/19 04:00 Mechanical Ventilator 08/27/19 04:00 98.6 81 15 115/63 (80) 100 08/27/19 03:34 72 08/27/19 03:02 77 11 28 08/27/19 01:12 76 12 28 08/27/19 00:00 98.7 72 15 100/60 (73) 99 08/27/19 00:00 Mechanical Ventilator 08/26/19 23:23 73 08/26/19 22:40 69 12 100 Mechanical Ventilator 28 69 13 28 08/26/19 21:05 82 17 28 08/26/19 20:00 98.6 73 14 109/64 (79) 100 08/26/19 20:00 67 08/26/19 20:00 Mechanical Ventilator 08/26/19 19:02 69 15 28 08/26/19 17:27 71 114/67 08/26/19 17:15 63 12 28 08/26/19 16:00 Mechanical Ventilator 08/26/19 16:00 98.5 71 12 114/67 (83) 100 08/26/19 15:31 76 08/26/19 15:04 72 12 28 08/26/19 13:03 90 19 28 08/26/19 12:00 Mechanical Ventilator 08/26/19 12:00 99.1 77 12 122/72 (89) 100 08/26/19 11:40 77 08/26/19 11:19 77 13 28 08/26/19 09:29 88 14 100 Mechanical Ventilator 28 89 20 28 Intake and Output 08/26/19 08/27/19 19:00 07:00 Intake Total 1015.000 ml 645 ml Output Total 700 ml 950 ml Balance 315.000 ml -305 ml Intake Free Water 150 ml IV Total 275.000 ml Tube Feeding 540 ml 495 ml Other 50 ml 150 ml Output Urine Total 700 ml 950 ml Microbiology Date/Time Source Procedure Growth Status 08/18/19 16:00 Blood Blood Culture - Final NO GROWTH AFTER 5 DAYS Complete 08/18/19 20:00 Sputum Gram Stain - Final Complete 08/18/19 20:00 Sputum Culture - Final Pseudomonas Aeruginosa - Mdr Usual Respiratory Mira Complete 08/18/19 15:00 Urine,Clean Catch Urine Culture - Final NO GROWTH AFTER 48 HOURS Complete 08/18/19 18:00 Rectum VRE Culture - Final Enterococcus Faecalis - Vre Complete Current Medications Medications (Trade) Dose Ordered Sig/Dolly Route PRN Reason Start Time Stop Time Status Last Admin Dose Admin Acetaminophen (Tylenol) 650 mg Q4H PRN GT Mild Pain/Temp > 100.5 08/19/19 14:15 09/18/19 14:14 08/22/19 09:33 Ascorbic Acid (Vitamin C) 500 mg TWICE A DAY GT 08/19/19 18:00 09/18/19 17:59 08/26/19 17:27 Atenolol (Tenormin) 12.5 mg BID GT 08/19/19 09:00 09/18/19 08:59 08/26/19 17:27 Chlorhexidine Gluconate (Leesa-Hex 2%) 1 applic DAILY@1999 TOPIC 08/24/19 20:00 09/23/19 19:59 08/26/19 20:57 Docusate Sodium (Colace) 100 mg DAILY GT 08/20/19 09:00 09/19/19 08:59 08/25/19 09:28 Famotidine (Pepcid) 40 mg DAILY GT 08/24/19 09:00 09/23/19 08:59 08/26/19 08:54 Gentamicin Sulfate (Gentamicin vial) 300 mg Q12HR@10,22 INH 08/26/19 22:00 08/28/19 23:59 08/26/19 22:19 Heparin Sodium (Porcine) (Heparin 5000 units/ml) 5,000 units EVERY 12 HOURS SUBQ 08/18/19 21:00 09/17/19 20:59 08/26/19 20:58 Levetiracetam (Keppra) 500 mg EVERY 12 HOURS GT 08/18/19 21:00 09/17/19 20:59 08/26/19 20:57 Levothyroxine Sodium (Synthroid) 250 mcg DAILY@0630 GT 08/20/19 06:30 09/19/19 06:29 08/27/19 05:59 Sennosides (Senokot) 17.2 mg DAILY GT 08/19/19 09:00 09/18/19 08:59 08/25/19 09:27 Sodium Hypochlorite (Dakin's Quarter Strength) 1 applic DAILY TOPIC 08/20/19 09:00 09/19/19 08:59 08/26/19 08:56 Tamsulosin HCl (Flomax) 0.4 mg BEDTIME ORAL 08/21/19 21:00 09/20/19 20:59 08/26/19 20:57 Vancomycin HCl (Vanco rx to dose) 1 ea DAILY PRN MISC Per rx protocol 08/18/19 20:00 09/17/19 19:59 Vancomycin HCl 750 mg/Sodium Chloride 275 ml @ 183.333 mls/hr Q24H IVPB 08/24/19 09:00 09/28/19 23:59 08/26/19 09:26 Laboratory Tests 08/27/19 04:00: White Blood Count 11.8H, Red Blood Count 3.55L, Hemoglobin 9.9L, Hematocrit 29.5L, Mean Corpuscular Volume 83, Mean Corpuscular Hemoglobin 28.0, Mean Corpuscular Hemoglobin Concent 33.7, Red Cell Distribution Width 14.4, Platelet Count 353, Mean Platelet Volume 4.9L, Neutrophils (%) (Auto) 75.1H, Lymphocytes (%) (Auto) 14.8L, Monocytes (%) (Auto) 7.8, Eosinophils (%) (Auto) 2.0, Basophils (%) (Auto) 0.4, Sodium Level 135L, Potassium Level 5.0, Chloride Level 103, Carbon Dioxide Level 24, Anion Gap 8, Blood Urea Nitrogen 23H, Creatinine 1.0, Estimat Glomerular Filtration Rate > 60, Glucose Level 110H, Calcium Level 8.8, Magnesium Level 2.2, Pro-B-Type Natriuretic Peptide 607H 08/27/19 08:00: Vancomycin Level Trough [Pending] Height (Feet): 5 Height (Inches): 8.00 Weight (Pounds): 162 Objective exam stable condom cath, urine grossly yellow Raulshad,Vickey Moore MD Aug 27, 2019 09:19
--- NOTE | 2019-08-27 09:36 | Pulmonology Progress Note ---
Assessment/Plan Assessment/Plan trach vent dependent respiratory failure seizure disorder possible sepsis chronic encephalopathy PLAN vent support antibiotics noted monitor HH feeds off load monitor labs for change hope to dc soon ID follow up and recommendations impression, plan, and exam edited and reviewed in detail care discussed with RN Subjective ROS Limited/Unobtainable: Yes Allergies: Coded Allergies: No Known Allergies (Unverified , 12/13/16) Subjective care noted on vent no distress Objective Last 24 Hour Vital Signs Date Time Temp Pulse Resp B/P (MAP) Pulse Ox O2 Delivery O2 Flow Rate FiO2 08/27/19 09:05 74 13 28 08/27/19 08:23 97.7 79 12 103/60 (74) 100 08/27/19 07:29 74 12 28 08/27/19 04:59 71 12 28 08/27/19 04:00 Mechanical Ventilator 08/27/19 04:00 98.6 81 15 115/63 (80) 100 08/27/19 03:34 72 08/27/19 03:02 77 11 28 08/27/19 01:12 76 12 28 08/27/19 00:00 98.7 72 15 100/60 (73) 99 08/27/19 00:00 Mechanical Ventilator 08/26/19 23:23 73 08/26/19 22:40 69 12 100 Mechanical Ventilator 28 69 13 28 08/26/19 21:05 82 17 28 08/26/19 20:00 98.6 73 14 109/64 (79) 100 08/26/19 20:00 67 08/26/19 20:00 Mechanical Ventilator 08/26/19 19:02 69 15 28 08/26/19 17:27 71 114/67 08/26/19 17:15 63 12 28 08/26/19 16:00 Mechanical Ventilator 08/26/19 16:00 98.5 71 12 114/67 (83) 100 08/26/19 15:31 76 08/26/19 15:04 72 12 28 08/26/19 13:03 90 19 28 08/26/19 12:00 Mechanical Ventilator 08/26/19 12:00 99.1 77 12 122/72 (89) 100 08/26/19 11:40 77 08/26/19 11:19 77 13 28 Intake and Output 08/26/19 08/27/19 19:00 07:00 Intake Total 1015.000 ml 645 ml Output Total 700 ml 950 ml Balance 315.000 ml -305 ml Intake Free Water 150 ml IV Total 275.000 ml Tube Feeding 540 ml 495 ml Other 50 ml 150 ml Output Urine Total 700 ml 950 ml Objective WDWN NAD trach and GT in place clear breath sounds bilaterally without rhonchi or wheeze [id number] without MRG NABS nontender no HSM no CCE nonfocal contractures Laboratory Tests 08/27/19 04:00: White Blood Count 11.8H, Red Blood Count 3.55L, Hemoglobin 9.9L, Hematocrit 29.5L, Mean Corpuscular Volume 83, Mean Corpuscular Hemoglobin 28.0, Mean Corpuscular Hemoglobin Concent 33.7, Red Cell Distribution Width 14.4, Platelet Count 353, Mean Platelet Volume 4.9L, Neutrophils (%) (Auto) 75.1H, Lymphocytes (%) (Auto) 14.8L, Monocytes (%) (Auto) 7.8, Eosinophils (%) (Auto) 2.0, Basophils (%) (Auto) 0.4, Sodium Level 135L, Potassium Level 5.0, Chloride Level 103, Carbon Dioxide Level 24, Anion Gap 8, Blood Urea Nitrogen 23H, Creatinine 1.0, Estimat Glomerular Filtration Rate > 60, Glucose Level 110H, Calcium Level 8.8, Magnesium Level 2.2, Pro-B-Type Natriuretic Peptide 607H 08/27/19 08:00: Vancomycin Level Trough 10.0 Current Medications Medications (Trade) Dose Ordered Sig/Dolly Route PRN Reason Start Time Stop Time Status Last Admin Dose Admin Acetaminophen (Tylenol) 650 mg Q4H PRN GT Mild Pain/Temp > 100.5 08/19/19 14:15 09/18/19 14:14 08/22/19 09:33 Ascorbic Acid (Vitamin C) 500 mg TWICE A DAY GT 08/19/19 18:00 09/18/19 17:59 08/26/19 17:27 Atenolol (Tenormin) 12.5 mg BID GT 08/19/19 09:00 09/18/19 08:59 08/26/19 17:27 Chlorhexidine Gluconate (Leesa-Hex 2%) 1 applic DAILY@1999 TOPIC 08/24/19 20:00 09/23/19 19:59 08/26/19 20:57 Docusate Sodium (Colace) 100 mg DAILY GT 08/20/19 09:00 09/19/19 08:59 08/25/19 09:28 Famotidine (Pepcid) 40 mg DAILY GT 08/24/19 09:00 09/23/19 08:59 08/26/19 08:54 Gentamicin Sulfate (Gentamicin vial) 300 mg Q12HR@10,22 INH 08/26/19 22:00 08/28/19 23:59 08/26/19 22:19 Heparin Sodium (Porcine) (Heparin 5000 units/ml) 5,000 units EVERY 12 HOURS SUBQ 08/18/19 21:00 09/17/19 20:59 08/26/19 20:58 Levetiracetam (Keppra) 500 mg EVERY 12 HOURS GT 08/18/19 21:00 09/17/19 20:59 08/26/19 20:57 Levothyroxine Sodium (Synthroid) 250 mcg DAILY@0630 GT 08/20/19 06:30 09/19/19 06:29 08/27/19 05:59 Sennosides (Senokot) 17.2 mg DAILY GT 08/19/19 09:00 09/18/19 08:59 08/25/19 09:27 Sodium Hypochlorite (Dakin's Quarter Strength) 1 applic DAILY TOPIC 08/20/19 09:00 09/19/19 08:59 08/26/19 08:56 Tamsulosin HCl (Flomax) 0.4 mg BEDTIME ORAL 08/21/19 21:00 09/20/19 20:59 08/26/19 20:57 Vancomycin HCl (Vanco rx to dose) 1 ea DAILY PRN MISC Per rx protocol 08/18/19 20:00 09/17/19 19:59 Vancomycin HCl 750 mg/Sodium Chloride 275 ml @ 183.333 mls/hr Q24H IVPB 08/24/19 09:00 09/28/19 23:59 08/26/19 09:26 Cody Bran MD Aug 27, 2019 09:35
--- NOTE | 2019-08-27 09:39 | NUR ---
RD ASSESSMENT & RECOMMENDATIONS SEE CARE ACTIVITY FOR COMPLETE ASSESSMENT DAILY ESTIMATED NEEDS: Needs based on Critical care, wound/ 63.4kg abw 25-30 kcals/kg 9874-8345 total kcals 1.5-2 g protein/kg 95-127 g total protein 25-30 mL/kg 9205-5391 total fluid mLs NUTRITION DIAGNOSIS: (1) Swallowing difficulty R/T respiratory status as evidenced by pt trach-vent dep, on GT feeding. (2) Increased kcal/pro needs R/T wound healing as evidenced by pt admitted w/ advanced wounds, including full thickness wounds @ occipital and sacrum, refer to WC eval. CURRENT TF: Glucerna 1.5 @ 45ml/hr x 22 hrs ENTERAL NUTRITION RECOMMENDATIONS: Glucerna 1.5 @ 55ml/hr x 22 hrs to provide 1210ml, 1815kcal, 100g prot, 918ml free water * Increase goal rate to 55ml/hr x 22 hrs * Hold 1 hour before and after Synthroid administration * HOB over 30 degrees/ water flush per MD ADDITIONAL RECOMMENDATIONS: * Per SNF: HT=64" QG=[id number] (as of 07/30/19) Pt w/ added P200 mattress + conflicting weights * Wound healing: Continue Vit C 500mg BID add Dong 1pkt BID (mix w/ 4oz water) * Monitor lytes, replete as needed * Monitor BGs, need for NISS: h/o DM, on TF
--- NOTE | 2019-08-27 09:40 | Surgery Progress Note ---
Surgery Progress Note Subjective Additional Comments no acute events comfortable stable tolerating feeds labs noted Objective Last 24 Hour Vital Signs Date Time Temp Pulse Resp B/P (MAP) Pulse Ox O2 Delivery O2 Flow Rate FiO2 08/27/19 09:05 74 13 28 08/27/19 08:23 97.7 79 12 103/60 (74) 100 08/27/19 07:29 74 12 28 08/27/19 04:59 71 12 28 08/27/19 04:00 Mechanical Ventilator 08/27/19 04:00 98.6 81 15 115/63 (80) 100 08/27/19 03:34 72 08/27/19 03:02 77 11 28 08/27/19 01:12 76 12 28 08/27/19 00:00 98.7 72 15 100/60 (73) 99 08/27/19 00:00 Mechanical Ventilator 08/26/19 23:23 73 08/26/19 22:40 69 12 100 Mechanical Ventilator 28 69 13 28 08/26/19 21:05 82 17 28 08/26/19 20:00 98.6 73 14 109/64 (79) 100 08/26/19 20:00 67 08/26/19 20:00 Mechanical Ventilator 08/26/19 19:02 69 15 28 08/26/19 17:27 71 114/67 08/26/19 17:15 63 12 28 08/26/19 16:00 Mechanical Ventilator 08/26/19 16:00 98.5 71 12 114/67 (83) 100 08/26/19 15:31 76 08/26/19 15:04 72 12 28 08/26/19 13:03 90 19 28 08/26/19 12:00 Mechanical Ventilator 08/26/19 12:00 99.1 77 12 122/72 (89) 100 08/26/19 11:40 77 08/26/19 11:19 77 13 28 I&O Intake and Output 08/26/19 08/27/19 19:00 07:00 Intake Total 1015.000 ml 645 ml Output Total 700 ml 950 ml Balance 315.000 ml -305 ml Intake Free Water 150 ml IV Total 275.000 ml Tube Feeding 540 ml 495 ml Other 50 ml 150 ml Output Urine Total 700 ml 950 ml Dressing: other Wound: other Drains: other Cardiovascular: RSR Respiratory: decreased breath sounds Abdomen: soft, present bowel sounds Extremities: no cyanosis Laboratory Tests Test 08/27/19 04:00 08/27/19 08:00 White Blood Count 11.8 K/UL (4.8-10.8) H Red Blood Count 3.55 M/UL (4.70-6.10) L Hemoglobin 9.9 G/DL (14.2-18.0) L Hematocrit 29.5 % (42.0-52.0) L Mean Corpuscular Volume 83 FL (80-99) Mean Corpuscular Hemoglobin 28.0 PG (27.0-31.0) Mean Corpuscular Hemoglobin Concent 33.7 G/DL (32.0-36.0) Red Cell Distribution Width 14.4 % (11.6-14.8) Platelet Count 353 K/UL (150-450) Mean Platelet Volume 4.9 FL (6.5-10.1) L Neutrophils (%) (Auto) 75.1 % (45.0-75.0) H Lymphocytes (%) (Auto) 14.8 % (20.0-45.0) L Monocytes (%) (Auto) 7.8 % (1.0-10.0) Eosinophils (%) (Auto) 2.0 % (0.0-3.0) Basophils (%) (Auto) 0.4 % (0.0-2.0) Sodium Level 135 MMOL/L (136-145) L Potassium Level 5.0 MMOL/L (3.5-5.1) Chloride Level 103 MMOL/L (98-107) Carbon Dioxide Level 24 MMOL/L (21-32) Anion Gap 8 mmol/L (5-15) Blood Urea Nitrogen 23 mg/dL (7-18) H Creatinine 1.0 MG/DL (0.55-1.30) Estimat Glomerular Filtration Rate > 60 mL/min (>60) Glucose Level 110 MG/DL (74-106) H Calcium Level 8.8 MG/DL (8.5-10.1) Magnesium Level 2.2 MG/DL (1.8-2.4) Pro-B-Type Natriuretic Peptide 607 pg/mL (0-125) H Vancomycin Level Trough 10.0 ug/mL (5.0-12.0) Plan Problems: (1) Tracheostomy in place Assessment & Plan: A dense retrocardiac opacification demonstrated with silhouetting of the left hemidiaphragm appearing worse than on the prior occasion. This was seen to some extent on the prior occasion. Heart size is normal. Lung volumes are low. Tracheostomy is noted. Bones are osteopenic. IMPRESSION: Retrocardiac density. Consider pneumonia although the finding was present to some extent on the prior occasion indicating a part of this may be chronic. Correlate clinically. Tracheostomy (2) Fever (3) Chronic respiratory failure (4) Vegetative state (5) Sepsis Assessment & Plan: Patient admitted with sepsis fevers, tachycardia, leukocytosis, abnormal labs, renal insufficiency. Antibiotics as per infectious disease Patient identified to have multiple wounds on admission some foul-smelling and malodorous with drainage. Wound evaluated bedside no acute active infection identified and source of sepsis unlikely from patient's wounds. Patient has chronic stage IV sacral decubitus ulcer with necrotic tissue and slough and eschar. No purulent drainage. Foul odor likely from incontinence. labs improved recovering exam stable We will continue to follow with recommendations Orders placed improving labs noted recovering Thank you for let me participate in patient's care (6) MDRO (multiple drug resistant organisms) resistance (7) Feeding by G-tube Assessment & Plan: DAILY ESTIMATED NEEDS: Needs based on Critical care, wound/ 63.4kg abw 25-30 kcals/kg 0118-3446 total kcals 1.5-2 g protein/kg 95-127 g total protein 25-30 mL/kg 6281-4410 total fluid mLs NUTRITION DIAGNOSIS: (1) Swallowing difficulty R/T respiratory status as evidenced by pt trach-vent dep, on GT feeding. (2) Increased kcal/pro needs R/T wound healing as evidenced by pt admitted w/ advanced wounds, pending eval CURRENT TF:Glucerna 1.5 @ 30ml/hr x 22 hrs ENTERAL NUTRITION RECOMMENDATIONS: Glucerna 1.5 @ 55ml/hr x 22 hrs to provide 1210ml, 1815kcal, 100g prot, 918ml free water * Increase goal rate to 55ml/hr x 22 hrs * Hold 1 hour before and after Synthroid administration * HOB over 30 degrees/ water flush per MD ADDITIONAL RECOMMENDATIONS: * Per SNF: HT=64" XG=402zoo (as of 07/30/19) * Wound healing: add Vit C 500mg BID add Dong 1pkt BID (mix w/ 4oz water) * Monitor lytes, replete as needed * Add NISS: h/o DM, on TF (8) Low grade fever (9) Severe anoxic-ischemic encephalopathy (10) Seizure disorder as sequela of cerebrovascular accident (11) Stage 4 skin ulcer of sacral region Assessment & Plan: Pt presented on admission with contractures and multiple pressure injuries. Full thickness pressure injury occipital. Base of wound is 40% necrotic with surrounding scattered slough and erythema. Small amt serous exudate. No odor noted. Edges are macerated and dark with surrounding erythema and denuded skin. (L)5.1cm x (W)8.2cm. Skin folds of neck very moist but no evidence of skin breakdown noted under collar of trach. Full thickness sacral pressure injury with undermined borders.(L)4.5cm x (W) 4.5cm x (D)1.5cm,undermining clockwise 3-11 by 1.3cm @3o'clock. Base of wound is 75% necrotic, 25% mixed slough and erythema. Wound is malodorous. Bone is visible at base of wound.Small amt seropurulent exudate noted. Non-blanching erythema without induration periwound. Resolving pressure injury lateral R tibia . scattered dry eschar with surrounding pink epithelial noted .Periwound without erythema or induration(L) 5cm x (W)0.9cm. Distal aspect of R foot is dusky. R 1st metatarsal is 75% necrotic,25% moist erythema.Oozing small amt haemopurulent exudate.Wound is malodorous. Borders are macerated(L)5.3cm x (W)4cm. R 2nd ,3rd,4th and 5th metatarsals noted to have dry eschar dorsally. Stable dry eschar dorsal R foot (L)0.4cm x (W)2.6cm. scattered dry scabs noted to [place] upper L thigh. No erythema noted at site. Lateral L foot extending to L 5th metatarsal head including plantar aspect is 90 % necrotic, with areas of fluctuance within base.5% surrounding moist erythema.Edges adherent to base of base of wound. Mild odor noted (L)4cm x (W) 14.5cm. Resolving pressure injury L lateral malleolus. Moist erythema with surrounding dry pink epithelial noted.(L)1cm x (W)0.8cm. Periwound without erythema or fluctuance. Both heels are boggy with scattered areas of hyperpigmentation from previous wounds. Tx.Plan: Cleanse wound Occipital with Dakin's 0.125% carlos a. Apply Dakin's Moistened Gauze. Cover with Optifoam drsg Daily and prn. Cleanse Sacral wound with Dakin's 0.125% carlos a.Loosely pack with Dakin's moistened kerlix. Apply Moisture Barrier Paste periwound. Cover with Optifoam drsg Daily and prn. Cleanse R 1st metatarsal with Dakin's 0.125% carlos a. Apply Dakin's moistened 2x2 Gauze. Apply Cavilon Skin Barrier periwound.Cover with ABD. Wrap with Kerlix Daily and prn. Swab Dorsal Aspects of R 2nd,3rd,4th and 5th metatarsals with Betadine Daily and prn. Cleanse wound lateral L foot with Dakin's 0.125% carlos a. Apply Dakin's moist gauze. Apply Cavilon Periwound. Cover with ABD pad and wrap with Kerlix Daily and prn. Apply Cavilon Skin Barrier to both heels. Cover each heel with Optifoam drsg. Change every 7 days and prn. Cover lateral R tibia with Optifoam drsg. Change every 7 days and prn. Air fluidized mattress. Reposition at least every 2hours or as tolerated. Place pillow between knees . Place pillow behind knees to off-load heels. Position head to side to relieve pressure off Occipital wound. Evens Kaur Aug 27, 2019 09:40
[2019-08-27] MEDS: Heparin 5000 units/ml inj SUBQ SCH ×2 (09:49→20:24)
[2019-08-27] MEDS: Docusate 100mg/10ml Liq GT SCH (09:50)
[2019-08-27] MEDS: Sennosides 8.6mg tab GT SCH (09:51)
[2019-08-27] MEDS: Ascorbic Acid 500mg tab GT SCH ×2 (09:51→17:32)
[2019-08-27] MEDS: Dakin's 0.125% Soln (Quarter Strength) 16oz TOPIC SCH (09:52)
--- NOTE | 2019-08-27 10:00 | NUR ---
NURSE NOTES: AM meds were administered. Oral care was done. VS remain stable. Pt was repositioned.
--- NOTE | 2019-08-27 10:07 | Infectious Diseases Prog Note ---
Assessment/Plan Assessment/Plan A: 1. Pseudomonas pneumonia. 2. Leukocytosis is improving. 3. Respiratory failure. 4. Encephalopathy 5. Right foot osteomyelitis. 6. Renal stones. 7. 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 Anemia PLAN: 1. Continue IV vancomycin X 32 days 2,. Discontinue inhaled gentamicin. 3. In case of no IV access start patient on Zyvox by GT 4. Wound care 5. Case was D/W RN Subjective ROS Limited/Unobtainable: Yes Allergies: Coded Allergies: No Known Allergies (Unverified , 12/13/16) Objective Vital Signs Last 24 Hour Vital Signs Date Time Temp Pulse Resp B/P (MAP) Pulse Ox O2 Delivery O2 Flow Rate FiO2 08/27/19 09:05 74 13 28 08/27/19 09:00 60 103/60 08/27/19 08:23 97.7 79 12 103/60 (74) 100 08/27/19 07:29 74 12 28 08/27/19 04:59 71 12 28 08/27/19 04:00 Mechanical Ventilator 08/27/19 04:00 98.6 81 15 115/63 (80) 100 08/27/19 03:34 72 08/27/19 03:02 77 11 28 08/27/19 01:12 76 12 28 08/27/19 00:00 98.7 72 15 100/60 (73) 99 08/27/19 00:00 Mechanical Ventilator 08/26/19 23:23 73 08/26/19 22:40 69 12 100 Mechanical Ventilator 28 69 13 28 08/26/19 21:05 82 17 28 08/26/19 20:00 98.6 73 14 109/64 (79) 100 08/26/19 20:00 67 08/26/19 20:00 Mechanical Ventilator 08/26/19 19:02 69 15 28 08/26/19 17:27 71 114/67 08/26/19 17:15 63 12 28 08/26/19 16:00 Mechanical Ventilator 08/26/19 16:00 98.5 71 12 114/67 (83) 100 08/26/19 15:31 76 08/26/19 15:04 72 12 28 08/26/19 13:03 90 19 28 08/26/19 12:00 Mechanical Ventilator 08/26/19 12:00 99.1 77 12 122/72 (89) 100 08/26/19 11:40 77 08/26/19 11:19 77 13 28 Height (Feet): 5 Height (Inches): 8.00 Weight (Pounds): 162 General Appearance: no acute distress HEENT: mucous membranes moist, status post trach Respiratory/Chest: lungs clear, other - on ventilator Cardiovascular: normal rate Abdomen: soft, non tender, other - GT feeding Extremities: no edema, other - sever contractures Skin: ulcers Neurologic/Psychiatric: aphasia Laboratory Tests Test 08/27/19 04:00 08/27/19 08:00 White Blood Count 11.8 K/UL (4.8-10.8) H Red Blood Count 3.55 M/UL (4.70-6.10) L Hemoglobin 9.9 G/DL (14.2-18.0) L Hematocrit 29.5 % (42.0-52.0) L Mean Corpuscular Volume 83 FL (80-99) Mean Corpuscular Hemoglobin 28.0 PG (27.0-31.0) Mean Corpuscular Hemoglobin Concent 33.7 G/DL (32.0-36.0) Red Cell Distribution Width 14.4 % (11.6-14.8) Platelet Count 353 K/UL (150-450) Mean Platelet Volume 4.9 FL (6.5-10.1) L Neutrophils (%) (Auto) 75.1 % (45.0-75.0) H Lymphocytes (%) (Auto) 14.8 % (20.0-45.0) L Monocytes (%) (Auto) 7.8 % (1.0-10.0) Eosinophils (%) (Auto) 2.0 % (0.0-3.0) Basophils (%) (Auto) 0.4 % (0.0-2.0) Sodium Level 135 MMOL/L (136-145) L Potassium Level 5.0 MMOL/L (3.5-5.1) Chloride Level 103 MMOL/L (98-107) Carbon Dioxide Level 24 MMOL/L (21-32) Anion Gap 8 mmol/L (5-15) Blood Urea Nitrogen 23 mg/dL (7-18) H Creatinine 1.0 MG/DL (0.55-1.30) Estimat Glomerular Filtration Rate > 60 mL/min (>60) Glucose Level 110 MG/DL (74-106) H Calcium Level 8.8 MG/DL (8.5-10.1) Magnesium Level 2.2 MG/DL (1.8-2.4) Pro-B-Type Natriuretic Peptide 607 pg/mL (0-125) H Vancomycin Level Trough 10.0 ug/mL (5.0-12.0) Current Medications Medications (Trade) Dose Ordered Sig/Dolly Route PRN Reason Start Time Stop Time Status Last Admin Dose Admin Acetaminophen (Tylenol) 650 mg Q4H PRN GT Mild Pain/Temp > 100.5 08/19/19 14:15 09/18/19 14:14 08/22/19 09:33 Ascorbic Acid (Vitamin C) 500 mg TWICE A DAY GT 08/19/19 18:00 09/18/19 17:59 08/27/19 09:51 Atenolol (Tenormin) 12.5 mg BID GT 08/19/19 09:00 09/18/19 08:59 08/26/19 17:27 Chlorhexidine Gluconate (Leesa-Hex 2%) 1 applic DAILY@1999 TOPIC 08/24/19 20:00 09/23/19 19:59 08/26/19 20:57 Docusate Sodium (Colace) 100 mg DAILY GT 08/20/19 09:00 09/19/19 08:59 08/27/19 09:50 Famotidine (Pepcid) 40 mg DAILY GT 08/24/19 09:00 09/23/19 08:59 08/27/19 09:51 Gentamicin Sulfate (Gentamicin vial) 300 mg Q12HR@ INH 08/26/19 22:00 08/28/19 23:59 08/26/19 22:19 Heparin Sodium (Porcine) (Heparin 5000 units/ml) 5,000 units EVERY 12 HOURS SUBQ 08/18/19 21:00 09/17/19 20:59 08/27/19 09:49 Levetiracetam (Keppra) 500 mg EVERY 12 HOURS GT 08/18/19 21:00 09/17/19 20:59 08/27/19 09:51 Levothyroxine Sodium (Synthroid) 250 mcg DAILY@0630 GT 08/20/19 06:30 09/19/19 06:29 08/27/19 05:59 Sennosides (Senokot) 17.2 mg DAILY GT 08/19/19 09:00 09/18/19 08:59 08/27/19 09:51 Sodium Hypochlorite (Dakin's Quarter Strength) 1 applic DAILY TOPIC 08/20/19 09:00 09/19/19 08:59 08/27/19 09:52 Tamsulosin HCl (Flomax) 0.4 mg BEDTIME ORAL 08/21/19 21:00 09/20/19 20:59 08/26/19 20:57 Vancomycin HCl (Vanco rx to dose) 1 ea DAILY PRN MISC Per rx protocol 08/18/19 20:00 09/17/19 19:59 Vancomycin HCl 1 gm/Sodium Chloride 275 ml @ 183.708 mls/hr Q24H IVPB 08/27/19 11:00 09/01/19 10:59 Erlin Lion MD Aug 27, 2019 10:07
--- NOTE | 2019-08-27 10:18 | NUR ---
*-* INSURANCE *-* ALL AVAILABLE CLINICALS HAVE BEEN FAXED TO: [employer] ph# [phone] fax#[phone] reviews/clinicals & Chelsie Couch ph#[phone] fax# [phone] reviews/clinicals
[2019-08-27] MEDS: Gentamicin for inhalation INH SCH (10:20)
--- NOTE | 2019-08-27 10:23 | General Progress Note ---
Assessment/Plan Status: stable, not improved Assessment/Plan: Assessment - acute on chronic anemia - chronic resp failure / trach - encephalopathy - contractures / decubitus - poor prognosis / not candidate for GI w/u Recommendations - transfuse PRN - IV Iron replacement - PPI --> H2B - TF - Wound care - supportive measures Subjective Allergies: Coded Allergies: No Known Allergies (Unverified , 12/13/16) Subjective Obtunded, non verbal tolerating TF Objective Last 24 Hour Vital Signs Date Time Temp Pulse Resp B/P (MAP) Pulse Ox O2 Delivery O2 Flow Rate FiO2 08/27/19 09:05 74 13 28 08/27/19 09:00 60 103/60 08/27/19 08:23 97.7 79 12 103/60 (74) 100 08/27/19 08:00 Mechanical Ventilator 08/27/19 07:29 74 12 28 08/27/19 04:59 71 12 28 08/27/19 04:00 Mechanical Ventilator 08/27/19 04:00 98.6 81 15 115/63 (80) 100 08/27/19 03:34 72 08/27/19 03:02 77 11 28 08/27/19 01:12 76 12 28 08/27/19 00:00 98.7 72 15 100/60 (73) 99 08/27/19 00:00 Mechanical Ventilator 08/26/19 23:23 73 08/26/19 22:40 69 12 100 Mechanical Ventilator 28 69 13 28 08/26/19 21:05 82 17 28 08/26/19 20:00 98.6 73 14 109/64 (79) 100 08/26/19 20:00 67 08/26/19 20:00 Mechanical Ventilator 08/26/19 19:02 69 15 28 08/26/19 17:27 71 114/67 08/26/19 17:15 63 12 28 08/26/19 16:00 Mechanical Ventilator 08/26/19 16:00 98.5 71 12 114/67 (83) 100 08/26/19 15:31 76 08/26/19 15:04 72 12 28 08/26/19 13:03 90 19 28 08/26/19 12:00 Mechanical Ventilator 08/26/19 12:00 99.1 77 12 122/72 (89) 100 08/26/19 11:40 77 08/26/19 11:19 77 13 28 Intake and Output 08/26/19 08/27/19 19:00 07:00 Intake Total 1015.000 ml 645 ml Output Total 700 ml 950 ml Balance 315.000 ml -305 ml Intake Free Water 150 ml IV Total 275.000 ml Tube Feeding 540 ml 495 ml Other 50 ml 150 ml Output Urine Total 700 ml 950 ml Laboratory Tests 08/27/19 04:00: White Blood Count 11.8H, Red Blood Count 3.55L, Hemoglobin 9.9L, Hematocrit 29.5L, Mean Corpuscular Volume 83, Mean Corpuscular Hemoglobin 28.0, Mean Corpuscular Hemoglobin Concent 33.7, Red Cell Distribution Width 14.4, Platelet Count 353, Mean Platelet Volume 4.9L, Neutrophils (%) (Auto) 75.1H, Lymphocytes (%) (Auto) 14.8L, Monocytes (%) (Auto) 7.8, Eosinophils (%) (Auto) 2.0, Basophils (%) (Auto) 0.4, Sodium Level 135L, Potassium Level 5.0, Chloride Level 103, Carbon Dioxide Level 24, Anion Gap 8, Blood Urea Nitrogen 23H, Creatinine 1.0, Estimat Glomerular Filtration Rate > 60, Glucose Level 110H, Calcium Level 8.8, Magnesium Level 2.2, Pro-B-Type Natriuretic Peptide 607H 08/27/19 08:00: Vancomycin Level Trough 10.0 Height (Feet): 5 Height (Inches): 8.00 Weight (Pounds): 162 Objective Debilitated WM, contracted NCAT (+) trach coarse Ronchi RR abd soft, GT (++) contracures Ted Rivero MD Aug 27, 2019 10:23
[2019-08-27] MEDS ORDERED: Vancomycin 1 GM in NS 275 ML IVPB SCH (11:00)
[2019-08-27 12:00] VITALS: BP 104/60
--- NOTE | 2019-08-27 12:00 | NUR ---
NURSE NOTES: Pt remains on AC vent settings with stable VS, afebrile. GT feeding continues with no residual. Pt was repositioned. Oral care was done and pt was suctioned.
--- NOTE | 2019-08-27 14:00 | NUR ---
NURSE NOTES: Pt was repositioned. VS remain stable. No signs/symptoms of distress noted.
--- NOTE | 2019-08-27 15:00 | NUR ---
ALUMINUM WELDERPOLICE DETECTIVE SI; RESP FAILURE TRACH/VENT DEPENDENT, RIGHT ANKLE OSTEOMYELITIS T. 97.7 HR 79 RR 12 B/P 105/66 AC 12 TV 600 FIO2 28% PEEP 5 WBC 11.8 IS: VANCO IV GENTAMICIN INH PEPCID HEPARIN SUBC STEP DOWN STATUS
[2019-08-27] MEDS ORDERED: ZYVOX600 MG ORAL (15:31)
[2019-08-27 16:00] VITALS: BP 98/53
--- NOTE | 2019-08-27 16:00 | NUR ---
NURSE NOTES: VS remain stable. Pt is afebrile. Pt was seen by Dr. Lion for ID follow up. No new orders were received at this time. Pt was repositioned. Oral care was done and pt suctioned. Pt is tolerating GT feeding with no noted residual.
--- NOTE | 2019-08-27 19:28 | NUR ---
NURSE NOTES: Received report from JUANJOSE Murray, pt. in bed awake- obtunded- eyes open, no signs or symptoms of acute cardiac or respiratory distress noted, bed alarm on, side rails up x's3 and safety brakes engaged, bed in lowest position and call light within easy reach, bed alarm on and safety brakes engaged, pt. appear to be tolerating current vent settings well- AC 12, TV600, Fio2 at 28% and peep 5- no distress noted, Glucerna 1.5 running at 45cc/hr- no residual noted, condom cath intact and draining to gravity, comfort measures provided, left thumb 22G IV intact and patent, safety measures continued, will continue with plan of care. Addendum: 08/27/19 at 2025 by CHITO CHICAS RN RN side rails padded for seizure precautions- no seizure activity noted upon assessment.
[2019-08-27 20:00] VITALS: BP 109/55
[2019-08-27] MEDS: Tamsulosin 0.4mg cap ORAL SCH (20:21)
[2019-08-27] MEDS: Dyna-Hex 2% Top Sol 2oz TOPIC SCH (20:21)
--- NOTE | 2019-08-27 23:00 | NUR ---
NURSE NOTES: wound care dressing changed according to wound care orders- pt. appears to have tolerated wound care dressing change well- will continue to monitor pt. and with plan of care. Bed bath given and linens changed- oral care provided, pt. comfort measures provided
[2019-08-28] VITALS: BP 115/65
--- NOTE | 2019-08-28 01:30 | Progress Note ---
DATE: 08/27/2019 CARDIOLOGY PROGRESS NOTE SUBJECTIVE: Remaining on ventilator support. The patient has no distress. He remains nonverbal. Thin secretions. OBJECTIVE: VITAL SIGNS: Blood pressure 103/60, pulse 79, respirations 12. Monitored rhythm, sinus. LUNGS: Few rhonchi. Thin secretions. CARDIAC: Regular rhythm and rate. Normal S1, S2. ABDOMEN: Soft. EXTREMITIES: No edema. LABORATORY DATA: White count 11.8, hemoglobin 9.9. Sodium 135, potassium 5, bicarb 24, BUN 23, creatinine 1. Pro-natriuretic peptide is decreased to 600. IMPRESSION: Significantly improved. PLAN: 1. Maintain current cardiovascular regimen. 2. Stable for discharge to skilled subacute facility from cardiovascular standpoint. 3. Does not need additional diuresis at this time. Kyaw Gonzalez M.D. DR: CHRISTIANO JOB#: [id number] CC:
[2019-08-28 04:00] VITALS: BP 112/60
--- NOTE | 2019-08-28 04:45 | Discharge Summary ---
DATE OF ADMISSION: 08/18/2019 DATE OF DISCHARGE: 08/27/2019 ADMISSION DIAGNOSES: 1. Sepsis shock. 2. Encephalopathy. 3. Acute renal failure. 4. Leukocytosis. 5. History of encephalopathy. 6. Seizure disorder. 7. Gastroesophageal reflux disease. 8. Hypertension. 9. Functional quadriplegia. 10. Multiple decubitus ulcers present on admission. DISCHARGE DIAGNOSES: 1. Sepsis shock. 2. Encephalopathy. 3. Acute renal failure. 4. Leukocytosis. 5. History of encephalopathy. 6. Seizure disorder. 7. Gastroesophageal reflux disease. 8. Hypertension. 9. Functional quadriplegia. 10. Multiple decubitus ulcers present on admission. HOSPITAL COURSE: The patient is an unfortunate male with a history of encephalopathy and chronic respiratory failure. He has a history of quadriplegia. He was transferred from a long term facility with complaints of sepsis and leukocytosis that was unresponsive to [facility]. He was pancultured and positive cultures. He was diagnosed with pneumonia. He received broad-spectrum IV antibiotics. He also was diagnosed with osteomyelitis of the right foot. He was continued on IV antibiotic therapy. His leukocytosis and fevers improved. He was continued on G-tube feeds. He received aggressive wound care, which included turning every 2 hours as well as a consultation from a general surgeon to assist with wound care. On discharge, the patient was stable. He will be discharged to complete 32 days of oral linezolid for osteomyelitis. attempts for placing a PICC line for IV vancomycin were unsuccessful because the patient has contractures. The patient will be followed closely at the long term facility. DISCHARGE MEDICATIONS: Please see discharge medication list for discharge medications. DIET: G-tube feedings. ACTIVITIES: Ad-carmelo. FOLLOWUP: The patient will follow-up in 1 to 2 days at the long term facility. Amadeo Pleitez M.D. DR: ALAN JOB#: [id number] CC:
--- NOTE | 2019-08-28 04:53 | NUR ---
NURSE NOTES: pt. noted to be tachy- pt. noted to have temp of 99.7- axillary- will apply cooling measures and administer Tylenol- will continue to monitor pt. and with plan of care- pt. remains stable.
[2019-08-28] MEDS: Acetaminophen 650mg/20.3ml GT PRN ×2 (04:59→10:38)
[2019-08-28] MEDS: LEVOTHYROXINE SODIUM 250 MCG GT SCH ×2 (05:56)
--- NOTE | 2019-08-28 07:05 | NUR ---
HAND-OFF: Report given to Yadira Rn, pt. remains stable and no signs of distress noted- aware to f/u on gillian am abnormal labs.
--- NOTE | 2019-08-28 07:06 | NUR ---
NURSE NOTES: Received patient in bed. Vent dependent. On continuous GTF as tolerated. Condom cath inplace. No respiratory distress at this time. Contact isolation observed. Will continue plan of care.
--- NOTE | 2019-08-28 07:19 | NUR ---
RESPIRATORY NOTE: received vent dependent pt, trach with portex [address] trach is secured via trach tie/guard with no signs of resp distress at this time. alarms are set and audible with ambu bag at bedside. will cont to monitor throughout the day.
--- NOTE | 2019-08-28 07:29 | General Progress Note ---
Assessment/Plan Problem List: (1) Osteomyelitis of ankle or foot, right, acute ICD Codes: M86.171 - Other acute osteomyelitis, right ankle and foot SNOMED: 062891243 (2) Anemia ICD Codes: D64.9 - Anemia, unspecified SNOMED: 690444096 (3) Fever ICD Codes: R50.9 - Fever, unspecified SNOMED: 447833882 (4) Tracheostomy in place ICD Codes: Z93.0 - Tracheostomy status SNOMED: 714021310 (5) Chronic respiratory failure ICD Codes: J96.10 - Chronic respiratory failure, unspecified whether with hypoxia or hypercapnia SNOMED: 77940019 (6) Vegetative state ICD Codes: R40.3 - Persistent vegetative state SNOMED: 49043257, 012185970 (7) MDRO (multiple drug resistant organisms) resistance ICD Codes: Z16.35 - Resistance to multiple antimicrobial drugs SNOMED: 402532777 (8) Feeding by G-tube ICD Codes: Z93.1 - Gastrostomy status SNOMED: 126395282, 827572882 (9) Severe anoxic-ischemic encephalopathy ICD Codes: G93.1 - Anoxic brain damage, not elsewhere classified; I67.82 - Cerebral ischemia SNOMED: 301848508 (10) Seizure disorder as sequela of cerebrovascular accident ICD Codes: I69.398 - Other sequelae of cerebral infarction; G40.909 - Epilepsy , unspecified, not intractable, without status epilepticus SNOMED: 250654889353305 (11) Stage 4 skin ulcer of sacral region ICD Codes: L98.429 - Non-pressure chronic ulcer of back with unspecified severity SNOMED: 15867399, 820685384 (12) Sepsis ICD Codes: A41.9 - Sepsis, unspecified organism SNOMED: 58666428 Status: stable, not improved Assessment/Plan: cont iv abx per id follow up cultures vent support resp rx suctioning monitor h/h monitor for bleeding wound care sz rx dvt/stress ulcer prophylaxis dc planning on po zyvox Subjective ROS Limited/Unobtainable: Yes Constitutional: Reports: malaise, weakness HEENT: Reports: no symptoms Cardiovascular: Reports: no symptoms Respiratory: Reports: cough, sputum Gastrointestinal/Abdominal: Reports: difficulty swallowing Genitourinary: Reports: no symptoms Neurologic/Psychiatric: Reports: pre-existing deficit, seizure Endocrine: Reports: no symptoms Hematologic/Lymphatic: Reports: no symptoms Allergies: Coded Allergies: No Known Allergies (Unverified , 12/13/16) All Systems: reviewed and negative except above Subjective clinically stable/improved. wbc better. fevers better. no events. stable on the vent. bp stable/improved. no bleeding. no iv access. switched to po zyvox Objective Last 24 Hour Vital Signs Date Time Temp Pulse Resp B/P (MAP) Pulse Ox O2 Delivery O2 Flow Rate FiO2 08/28/19 07:16 92 12 28 08/28/19 05:29 98.9 08/28/19 04:37 112 18 28 08/28/19 04:00 28 08/28/19 04:00 Mechanical Ventilator 08/28/19 04:00 99.7 114 16 112/60 (77) 100 08/28/19 03:39 109 08/28/19 03:05 111 19 28 08/28/19 00:34 81 20 28 08/28/19 00:00 98.8 76 14 115/65 (82) 100 08/28/19 00:00 Mechanical Ventilator 08/28/19 00:00 28 08/27/19 23:27 86 08/27/19 23:24 81 16 28 08/27/19 21:03 79 14 28 08/27/19 20:00 98.9 74 15 109/55 (73) 99 08/27/19 20:00 Mechanical Ventilator 08/27/19 20:00 28 08/27/19 20:00 75 08/27/19 18:56 78 16 28 08/27/19 16:46 69 13 28 08/27/19 16:00 98.1 74 15 98/53 (68) 98 08/27/19 16:00 71 08/27/19 16:00 Mechanical Ventilator 08/27/19 14:46 61 12 28 08/27/19 13:11 65 12 28 08/27/19 12:00 98.6 77 15 104/60 (75) 99 08/27/19 12:00 Mechanical Ventilator 08/27/19 11:33 72 08/27/19 10:45 74 16 100 Mechanical Ventilator 28 67 12 28 08/27/19 09:05 74 13 28 08/27/19 09:00 60 103/60 08/27/19 08:23 97.7 79 12 103/60 (74) 100 08/27/19 08:00 74 08/27/19 08:00 Mechanical Ventilator 08/27/19 07:29 74 12 28 Intake and Output 08/27/19 08/28/19 19:00 07:00 Intake Total 617.416 ml 500 ml Output Total 1000 ml 1000 ml Balance -382.584 ml -500 ml Intake Free Water 60 ml 50 ml IV Total 367.416 ml Tube Feeding 90 ml 450 ml Other 100 ml Output Urine Total 1000 ml 1000 ml # Bowel Movements 1 Laboratory Tests 08/27/19 08:00: Vancomycin Level Trough 10.0 Height (Feet): 5 Height (Inches): 8.00 Weight (Pounds): 162 General Appearance: WD/WN, lethargic, confused, cachetic Neck: non-tender, normal alignment, supple Cardiovascular: normal rate, regular rhythm Respiratory/Chest: chest wall non-tender, lungs clear, normal breath sounds, no respiratory distress, no accessory muscle use Abdomen: soft Objective General Appearance: WD/WN, lethargic, confused, thin Neck: non-tender, normal alignment, supple, normal inspection Cardiovascular: normal peripheral pulses, normal rate, regular rhythm Respiratory/Chest: chest wall non-tender, lungs clear, normal breath sounds, no respiratory distress, no accessory muscle use Abdomen: normal bowel sounds, non tender, soft, no organomegaly, no mass Edema: no edema noted Arm (L), no edema noted Arm (R), no edema noted Leg (L), no edema noted Leg (R), no edema noted Pedal (L), no edema noted Pedal (R), no edema noted Generalized Neurologic: disoriented, unresponsive, aphasia Skin: other - multiple wounds Amadeo Pleitez MD Aug 28, 2019 07:29
[2019-08-28 08:00] VITALS: BP 98/58
--- NOTE | 2019-08-28 08:42 | Pulmonology Progress Note ---
Assessment/Plan Assessment/Plan trach vent dependent respiratory failure seizure disorder possible sepsis chronic encephalopathy PLAN vent support antibiotics noted monitor HH feeds no new labs today off load monitor labs for change hope to dc soon ID follow up and recommendations impression, plan, and exam edited and reviewed in detail care discussed with RN Subjective ROS Limited/Unobtainable: Yes Allergies: Coded Allergies: No Known Allergies (Unverified , 12/13/16) Subjective care noted on vent no distress Objective Last 24 Hour Vital Signs Date Time Temp Pulse Resp B/P (MAP) Pulse Ox O2 Delivery O2 Flow Rate FiO2 08/28/19 08:00 28 08/28/19 08:00 Mechanical Ventilator 08/28/19 07:16 92 12 28 08/28/19 05:29 98.9 08/28/19 04:37 112 18 28 08/28/19 04:00 28 08/28/19 04:00 Mechanical Ventilator 08/28/19 04:00 99.7 114 16 112/60 (77) 100 08/28/19 03:39 109 08/28/19 03:05 111 19 28 08/28/19 00:34 81 20 28 08/28/19 00:00 98.8 76 14 115/65 (82) 100 08/28/19 00:00 Mechanical Ventilator 08/28/19 00:00 28 08/27/19 23:27 86 08/27/19 23:24 81 16 28 08/27/19 21:03 79 14 28 08/27/19 20:00 98.9 74 15 109/55 (73) 99 08/27/19 20:00 Mechanical Ventilator 08/27/19 20:00 28 08/27/19 20:00 75 08/27/19 18:56 78 16 28 08/27/19 16:46 69 13 28 08/27/19 16:00 98.1 74 15 98/53 (68) 98 08/27/19 16:00 71 08/27/19 16:00 Mechanical Ventilator 08/27/19 14:46 61 12 28 08/27/19 13:11 65 12 28 08/27/19 12:00 98.6 77 15 104/60 (75) 99 08/27/19 12:00 Mechanical Ventilator 08/27/19 11:33 72 08/27/19 10:45 74 16 100 Mechanical Ventilator 28 67 12 28 08/27/19 09:05 74 13 28 08/27/19 09:00 60 103/60 Intake and Output 08/27/19 08/28/19 19:00 07:00 Intake Total 617.416 ml 500 ml Output Total 1000 ml 1000 ml Balance -382.584 ml -500 ml Intake Free Water 60 ml 50 ml IV Total 367.416 ml Tube Feeding 90 ml 450 ml Other 100 ml Output Urine Total 1000 ml 1000 ml # Bowel Movements 1 Objective WDWN NAD trach and GT in place clear breath sounds bilaterally without rhonchi or wheeze [id number] without MRG NABS nontender no HSM no CCE nonfocal contractures Current Medications Medications (Trade) Dose Ordered Sig/Dolly Route PRN Reason Start Time Stop Time Status Last Admin Dose Admin Acetaminophen (Tylenol) 650 mg Q4H PRN GT Mild Pain/Temp > 100.5 08/19/19 14:15 09/18/19 14:14 08/28/19 04:59 Ascorbic Acid (Vitamin C) 500 mg TWICE A DAY GT 08/19/19 18:00 09/18/19 17:59 08/27/19 17:32 Atenolol (Tenormin) 12.5 mg BID GT 08/19/19 09:00 09/18/19 08:59 08/26/19 17:27 Docusate Sodium (Colace) 100 mg DAILY GT 08/20/19 09:00 09/19/19 08:59 08/27/19 09:50 Famotidine (Pepcid) 40 mg DAILY GT 08/24/19 09:00 09/23/19 08:59 08/27/19 09:51 Heparin Sodium (Porcine) (Heparin 5000 units/ml) 5,000 units EVERY 12 HOURS SUBQ 08/18/19 21:00 09/17/19 20:59 08/27/19 20:24 Levetiracetam (Keppra) 500 mg EVERY 12 HOURS GT 08/18/19 21:00 09/17/19 20:59 08/27/19 20:21 Levothyroxine Sodium (Synthroid) 250 mcg DAILY@0630 GT 08/20/19 06:30 09/19/19 06:29 08/28/19 05:56 Sennosides (Senokot) 17.2 mg DAILY GT 08/19/19 09:00 09/18/19 08:59 08/27/19 09:51 Sodium Hypochlorite (Dakin's Quarter Strength) 1 applic DAILY TOPIC 08/20/19 09:00 09/19/19 08:59 08/27/19 09:52 Tamsulosin HCl (Flomax) 0.4 mg BEDTIME ORAL 08/21/19 21:00 09/20/19 20:59 08/27/19 20:21 Vancomycin HCl (Vanco rx to dose) 1 ea DAILY PRN MISC Per rx protocol 08/18/19 20:00 09/17/19 19:59 Vancomycin HCl 1 gm/Sodium Chloride 275 ml @ 183.708 mls/hr Q24H IVPB 08/27/19 11:00 09/01/19 10:59 08/27/19 10:53 Cody Bran MD Aug 28, 2019 08:42
[2019-08-28] MEDS: Atenolol 25mg tab GT SCH (09:00)
[2019-08-28] MEDS: Ascorbic Acid 500mg tab GT SCH (09:06)
[2019-08-28] MEDS: Docusate 100mg/10ml Liq GT SCH (09:06)
[2019-08-28] MEDS: Heparin 5000 units/ml inj SUBQ SCH (09:06)
[2019-08-28] MEDS: Sennosides 8.6mg tab GT SCH (09:07)
--- NOTE | 2019-08-28 09:55 | NUR ---
NURSE NOTES: Informed Jasmyn Castañeda via telephone regarding Discharge order today.
--- NOTE | 2019-08-28 10:13 | Infectious Diseases Prog Note ---
Assessment/Plan Assessment/Plan antibiotics : vancomycin iv A 1. Pseudomonas pneumonia s/p rx 2. Leukocytosis is improving. 3. Respiratory failure. 4. Developmental delay. 5. Right foot osteomyelitis. 6. Renal stones. P 1. d/c iv vancomycin 2. start and continue po linezolid 31 more days 3. will follow up cultures Subjective ROS Limited/Unobtainable: Yes Allergies: Coded Allergies: No Known Allergies (Unverified , 12/13/16) Objective Vital Signs Last 24 Hour Vital Signs Date Time Temp Pulse Resp B/P (MAP) Pulse Ox O2 Delivery O2 Flow Rate FiO2 08/28/19 09:10 88 12 28 08/28/19 09:00 88 98/58 08/28/19 08:00 28 08/28/19 08:00 99.0 88 11 98/58 (71) 99 08/28/19 08:00 Mechanical Ventilator 08/28/19 07:48 89 08/28/19 07:16 92 12 28 08/28/19 05:29 98.9 08/28/19 04:37 112 18 28 08/28/19 04:00 28 08/28/19 04:00 Mechanical Ventilator 08/28/19 04:00 99.7 114 16 112/60 (77) 100 08/28/19 03:39 109 08/28/19 03:05 111 19 28 08/28/19 00:34 81 20 28 08/28/19 00:00 98.8 76 14 115/65 (82) 100 08/28/19 00:00 Mechanical Ventilator 08/28/19 00:00 28 08/27/19 23:27 86 08/27/19 23:24 81 16 28 08/27/19 21:03 79 14 28 08/27/19 20:00 98.9 74 15 109/55 (73) 99 08/27/19 20:00 Mechanical Ventilator 08/27/19 20:00 28 08/27/19 20:00 75 08/27/19 18:56 78 16 28 08/27/19 16:46 69 13 28 08/27/19 16:00 98.1 74 15 98/53 (68) 98 08/27/19 16:00 71 08/27/19 16:00 Mechanical Ventilator 08/27/19 14:46 61 12 28 08/27/19 13:11 65 12 28 08/27/19 12:00 98.6 77 15 104/60 (75) 99 08/27/19 12:00 Mechanical Ventilator 08/27/19 11:33 72 08/27/19 10:45 74 16 100 Mechanical Ventilator 28 67 12 28 Height (Feet): 5 Height (Inches): 8.00 Weight (Pounds): 162 HEENT: status post trach Respiratory/Chest: lungs clear Cardiovascular: normal rate, regular rhythm, no gallop/murmur Abdomen: soft, non tender, other - GT Extremities: no edema Current Medications Medications (Trade) Dose Ordered Sig/Dolly Route PRN Reason Start Time Stop Time Status Last Admin Dose Admin Acetaminophen (Tylenol) 650 mg Q4H PRN GT Mild Pain/Temp > 100.5 08/19/19 14:15 09/18/19 14:14 08/28/19 04:59 Ascorbic Acid (Vitamin C) 500 mg TWICE A DAY GT 08/19/19 18:00 09/18/19 17:59 08/28/19 09:06 Atenolol (Tenormin) 12.5 mg BID GT 08/19/19 09:00 09/18/19 08:59 08/26/19 17:27 Docusate Sodium (Colace) 100 mg DAILY GT 08/20/19 09:00 09/19/19 08:59 08/28/19 09:06 Famotidine (Pepcid) 40 mg DAILY GT 08/24/19 09:00 09/23/19 08:59 08/28/19 09:07 Heparin Sodium (Porcine) (Heparin 5000 units/ml) 5,000 units EVERY 12 HOURS SUBQ 08/18/19 21:00 09/17/19 20:59 08/28/19 09:06 Levetiracetam (Keppra) 500 mg EVERY 12 HOURS GT 08/18/19 21:00 09/17/19 20:59 08/28/19 09:06 Levothyroxine Sodium (Synthroid) 250 mcg DAILY@0630 GT 08/20/19 06:30 09/19/19 06:29 08/28/19 05:56 Sennosides (Senokot) 17.2 mg DAILY GT 08/19/19 09:00 09/18/19 08:59 08/28/19 09:07 Sodium Hypochlorite (Dakin's Quarter Strength) 1 applic BEDTIME TOPIC 08/28/19 21:00 09/19/19 08:59 Tamsulosin HCl (Flomax) 0.4 mg BEDTIME ORAL 08/21/19 21:00 09/20/19 20:59 08/27/19 20:21 Vancomycin HCl (Vanco rx to dose) 1 ea DAILY PRN MISC Per rx protocol 08/18/19 20:00 09/17/19 19:59 Vancomycin/Sodium Chloride 275 ml @ 183.333 mls/hr Q24H IVPB 08/28/19 11:00 09/02/19 10:59 Indigo Harris MD Aug 28, 2019 10:13
[2019-08-28] MEDS ORDERED: Vancomycin 1.25gm/NS Premix IVPB SCH (11:00)
--- NOTE | 2019-08-28 11:52 | NUR ---
NURSE NOTES: Telephone report given to [facility] staff/ HALEY Mckay.
[2019-08-28 12:00] VITALS: BP 92/58
--- NOTE | 2019-08-28 12:45 | NUR ---
*-* INSURANCE *-* ALL AVAILABLE CLINICALS HAVE BEEN FAXED TO: [employer] ph# [phone] fax#[phone] reviews/clinicals & Chelsie Couch ph#[phone] fax# [phone] reviews/clinicals
--- NOTE | 2019-08-28 13:51 | Surgery Progress Note ---
Surgery Progress Note Subjective Additional Comments leukocytosis abnormal labs exam unchanged Objective Last 24 Hour Vital Signs Date Time Temp Pulse Resp B/P (MAP) Pulse Ox O2 Delivery O2 Flow Rate FiO2 08/28/19 12:53 72 12 28 08/28/19 12:00 Mechanical Ventilator 08/28/19 12:00 98.5 76 14 92/58 (69) 100 08/28/19 12:00 28 08/28/19 11:40 77 08/28/19 11:29 77 12 28 08/28/19 09:10 88 12 28 08/28/19 09:00 88 98/58 08/28/19 08:00 28 08/28/19 08:00 99.0 88 11 98/58 (71) 99 08/28/19 08:00 Mechanical Ventilator 08/28/19 07:48 89 08/28/19 07:16 92 12 28 08/28/19 05:29 98.9 08/28/19 04:37 112 18 28 08/28/19 04:00 28 08/28/19 04:00 Mechanical Ventilator 08/28/19 04:00 99.7 114 16 112/60 (77) 100 08/28/19 03:39 109 08/28/19 03:05 111 19 28 08/28/19 00:34 81 20 28 08/28/19 00:00 98.8 76 14 115/65 (82) 100 08/28/19 00:00 Mechanical Ventilator 08/28/19 00:00 28 08/27/19 23:27 86 08/27/19 23:24 81 16 28 08/27/19 21:03 79 14 28 08/27/19 20:00 98.9 74 15 109/55 (73) 99 08/27/19 20:00 Mechanical Ventilator 08/27/19 20:00 28 08/27/19 20:00 75 08/27/19 18:56 78 16 28 08/27/19 16:46 69 13 28 08/27/19 16:00 98.1 74 15 98/53 (68) 98 08/27/19 16:00 71 08/27/19 16:00 Mechanical Ventilator 08/27/19 14:46 61 12 28 I&O Intake and Output 08/27/19 08/28/19 19:00 07:00 Intake Total 617.416 ml 500 ml Output Total 1000 ml 1000 ml Balance -382.584 ml -500 ml Intake Free Water 60 ml 50 ml IV Total 367.416 ml Tube Feeding 90 ml 450 ml Other 100 ml Output Urine Total 1000 ml 1000 ml # Bowel Movements 1 Dressing: other Wound: other Drains: other Cardiovascular: RSR Respiratory: decreased breath sounds Abdomen: soft, present bowel sounds Extremities: no cyanosis, other Plan Problems: (1) Tracheostomy in place Assessment & Plan: A dense retrocardiac opacification demonstrated with silhouetting of the left hemidiaphragm appearing worse than on the prior occasion. This was seen to some extent on the prior occasion. Heart size is normal. Lung volumes are low. Tracheostomy is noted. Bones are osteopenic. IMPRESSION: Retrocardiac density. Consider pneumonia although the finding was present to some extent on the prior occasion indicating a part of this may be chronic. Correlate clinically. Tracheostomy (2) Fever (3) Chronic respiratory failure (4) Vegetative state (5) Sepsis Assessment & Plan: Patient admitted with sepsis fevers, tachycardia, leukocytosis, abnormal labs, renal insufficiency. Antibiotics as per infectious disease Patient identified to have multiple wounds on admission some foul-smelling and malodorous with drainage. Wound evaluated bedside no acute active infection identified and source of sepsis unlikely from patient's wounds. Patient has chronic stage IV sacral decubitus ulcer with necrotic tissue and slough and eschar. No purulent drainage. Foul odor likely from incontinence. labs improved recovering exam stable We will continue to follow with recommendations Orders placed improving labs noted recovering Thank you for let me participate in patient's care (6) MDRO (multiple drug resistant organisms) resistance (7) Feeding by G-tube Assessment & Plan: DAILY ESTIMATED NEEDS: Needs based on Critical care, wound/ 63.4kg abw 25-30 kcals/kg 3622-0949 total kcals 1.5-2 g protein/kg 95-127 g total protein 25-30 mL/kg 0045-8517 total fluid mLs NUTRITION DIAGNOSIS: (1) Swallowing difficulty R/T respiratory status as evidenced by pt trach-vent dep, on GT feeding. (2) Increased kcal/pro needs R/T wound healing as evidenced by pt admitted w/ advanced wounds, pending eval CURRENT TF:Glucerna 1.5 @ 30ml/hr x 22 hrs ENTERAL NUTRITION RECOMMENDATIONS: Glucerna 1.5 @ 55ml/hr x 22 hrs to provide 1210ml, 1815kcal, 100g prot, 918ml free water * Increase goal rate to 55ml/hr x 22 hrs * Hold 1 hour before and after Synthroid administration * HOB over 30 degrees/ water flush per MD ADDITIONAL RECOMMENDATIONS: * Per SNF: HT=64" JC=737crp (as of 07/30/19) * Wound healing: add Vit C 500mg BID add Dong 1pkt BID (mix w/ 4oz water) * Monitor lytes, replete as needed * Add NISS: h/o DM, on TF (8) Low grade fever (9) Severe anoxic-ischemic encephalopathy (10) Seizure disorder as sequela of cerebrovascular accident (11) Stage 4 skin ulcer of sacral region Assessment & Plan: Pt presented on admission with contractures and multiple pressure injuries. Full thickness pressure injury occipital. Base of wound is 40% necrotic with surrounding scattered slough and erythema. Small amt serous exudate. No odor noted. Edges are macerated and dark with surrounding erythema and denuded skin. (L)5.1cm x (W)8.2cm. Skin folds of neck very moist but no evidence of skin breakdown noted under collar of trach. Full thickness sacral pressure injury with undermined borders.(L)4.5cm x (W) 4.5cm x (D)1.5cm,undermining clockwise 3-11 by 1.3cm @3o'clock. Base of wound is 75% necrotic, 25% mixed slough and erythema. Wound is malodorous. Bone is visible at base of wound.Small amt seropurulent exudate noted. Non-blanching erythema without induration periwound. Resolving pressure injury lateral R tibia . scattered dry eschar with surrounding pink epithelial noted .Periwound without erythema or induration(L) 5cm x (W)0.9cm. Distal aspect of R foot is dusky. R 1st metatarsal is 75% necrotic,25% moist erythema.Oozing small amt haemopurulent exudate.Wound is malodorous. Borders are macerated(L)5.3cm x (W)4cm. R 2nd ,3rd,4th and 5th metatarsals noted to have dry eschar dorsally. Stable dry eschar dorsal R foot (L)0.4cm x (W)2.6cm. scattered dry scabs noted to [place] upper L thigh. No erythema noted at site. Lateral L foot extending to L 5th metatarsal head including plantar aspect is 90 % necrotic, with areas of fluctuance within base.5% surrounding moist erythema.Edges adherent to base of base of wound. Mild odor noted (L)4cm x (W) 14.5cm. Resolving pressure injury L lateral malleolus. Moist erythema with surrounding dry pink epithelial noted.(L)1cm x (W)0.8cm. Periwound without erythema or fluctuance. Both heels are boggy with scattered areas of hyperpigmentation from previous wounds. Tx.Plan: Cleanse wound Occipital with Dakin's 0.125% carlos a. Apply Dakin's Moistened Gauze. Cover with Optifoam drsg Daily and prn. Cleanse Sacral wound with Dakin's 0.125% carlos a.Loosely pack with Dakin's moistened kerlix. Apply Moisture Barrier Paste periwound. Cover with Optifoam drsg Daily and prn. Cleanse R 1st metatarsal with Dakin's 0.125% carlos a. Apply Dakin's moistened 2x2 Gauze. Apply Cavilon Skin Barrier periwound.Cover with ABD. Wrap with Kerlix Daily and prn. Swab Dorsal Aspects of R 2nd,3rd,4th and 5th metatarsals with Betadine Daily and prn. Cleanse wound lateral L foot with Dakin's 0.125% carlos a. Apply Dakin's moist gauze. Apply Cavilon Periwound. Cover with ABD pad and wrap with Kerlix Daily and prn. Apply Cavilon Skin Barrier to both heels. Cover each heel with Optifoam drsg. Change every 7 days and prn. Cover lateral R tibia with Optifoam drsg. Change every 7 days and prn. Air fluidized mattress. Reposition at least every 2hours or as tolerated. Place pillow between knees . Place pillow behind knees to off-load heels. Position head to side to relieve pressure off Occipital wound. Evens Kaur Aug 28, 2019 13:51
--- NOTE | 2019-08-28 14:11 | Urology Progress Note ---
Assessment/Plan Status: stable, not improved Assessment/Plan: 1. Right UVJ calculus. 2. Mild hydronephrosis. 3. Acute kidney injury, which is better. 4. Hematuria. 5. Pyuria. 6. Urinary incontinence. 7. Probable neurogenic bladder. monitor clinically flomax added abx as ordered consider nephrostomy monitor renal fxn outpt f/u with urologist in his plan Subjective Allergies: Coded Allergies: No Known Allergies (Unverified , 12/13/16) Subjective all noted, looks comfortable, going back to SNF Objective Last 24 Hour Vital Signs Date Time Temp Pulse Resp B/P (MAP) Pulse Ox O2 Delivery O2 Flow Rate FiO2 08/28/19 12:53 72 12 28 08/28/19 12:00 Mechanical Ventilator 08/28/19 12:00 98.5 76 14 92/58 (69) 100 08/28/19 12:00 28 08/28/19 11:40 77 08/28/19 11:29 77 12 28 08/28/19 09:10 88 12 28 08/28/19 09:00 88 98/58 08/28/19 08:00 28 08/28/19 08:00 99.0 88 11 98/58 (71) 99 08/28/19 08:00 Mechanical Ventilator 08/28/19 07:48 89 08/28/19 07:16 92 12 28 08/28/19 05:29 98.9 08/28/19 04:37 112 18 28 08/28/19 04:00 28 08/28/19 04:00 Mechanical Ventilator 08/28/19 04:00 99.7 114 16 112/60 (77) 100 08/28/19 03:39 109 08/28/19 03:05 111 19 28 08/28/19 00:34 81 20 28 08/28/19 00:00 98.8 76 14 115/65 (82) 100 08/28/19 00:00 Mechanical Ventilator 08/28/19 00:00 28 08/27/19 23:27 86 08/27/19 23:24 81 16 28 08/27/19 21:03 79 14 28 08/27/19 20:00 98.9 74 15 109/55 (73) 99 08/27/19 20:00 Mechanical Ventilator 08/27/19 20:00 28 08/27/19 20:00 75 08/27/19 18:56 78 16 28 08/27/19 16:46 69 13 28 08/27/19 16:00 98.1 74 15 98/53 (68) 98 08/27/19 16:00 71 08/27/19 16:00 Mechanical Ventilator 08/27/19 14:46 61 12 28 Intake and Output 08/27/19 08/28/19 19:00 07:00 Intake Total 617.416 ml 500 ml Output Total 1000 ml 1000 ml Balance -382.584 ml -500 ml Intake Free Water 60 ml 50 ml IV Total 367.416 ml Tube Feeding 90 ml 450 ml Other 100 ml Output Urine Total 1000 ml 1000 ml # Bowel Movements 1 Microbiology Date/Time Source Procedure Growth Status 08/18/19 16:00 Blood Blood Culture - Final NO GROWTH AFTER 5 DAYS Complete 08/18/19 20:00 Sputum Gram Stain - Final Complete 08/18/19 20:00 Sputum Culture - Final Pseudomonas Aeruginosa - Mdr Usual Respiratory Mira Complete 08/18/19 15:00 Urine,Clean Catch Urine Culture - Final NO GROWTH AFTER 48 HOURS Complete 08/18/19 18:00 Rectum VRE Culture - Final Enterococcus Faecalis - Vre Complete Current Medications Medications (Trade) Dose Ordered Sig/Dolly Route PRN Reason Start Time Stop Time Status Last Admin Dose Admin Acetaminophen (Tylenol) 650 mg Q4H PRN GT Mild Pain/Temp > 100.5 08/19/19 14:15 09/18/19 14:14 08/28/19 10:38 Ascorbic Acid (Vitamin C) 500 mg TWICE A DAY GT 08/19/19 18:00 09/18/19 17:59 08/28/19 09:06 Atenolol (Tenormin) 12.5 mg BID GT 08/19/19 09:00 09/18/19 08:59 08/26/19 17:27 Docusate Sodium (Colace) 100 mg DAILY GT 08/20/19 09:00 09/19/19 08:59 08/28/19 09:06 Famotidine (Pepcid) 40 mg DAILY GT 08/24/19 09:00 09/23/19 08:59 08/28/19 09:07 Heparin Sodium (Porcine) (Heparin 5000 units/ml) 5,000 units EVERY 12 HOURS SUBQ 08/18/19 21:00 09/17/19:59 08/28/19 09:06 Levetiracetam (Keppra) 500 mg EVERY 12 HOURS GT 08/18/19 21:00 09/17/19 20:59 08/28/19 09:06 Levothyroxine Sodium (Synthroid) 250 mcg DAILY@0630 GT 08/20/19 06:30 09/19/19 06:29 08/28/19 05:56 Linezolid (Zyvox) 600 mg EVERY 12 HOURS GT 08/28/19 21:00 09/28/19 23:29 Sennosides (Senokot) 17.2 mg DAILY GT 08/19/19 09:00 09/18/19 08:59 08/28/19 09:07 Sodium Hypochlorite (Dakin's Quarter Strength) 1 applic BEDTIME TOPIC 08/28/19 21:00 09/19/19 08:59 Tamsulosin HCl (Flomax) 0.4 mg BEDTIME ORAL 08/21/19 21:00 09/20/19 20:59 08/27/19 20:21 Height (Feet): 5 Height (Inches): 8.00 Weight (Pounds): 162 Objective exam stable condom cath, urine grossly yellow Bamshad,Vickey Moore MD Aug 28, 2019 14:11
[2019-08-28 14:24] VITALS: BP 110/61
[2019-08-28] MEDS ORDERED: NS 275ml ONE (14:33)
--- NOTE | 2019-08-28 14:34 | NUR ---
INTER-FACILITY TRANSFER: Patient transferred to [facility] , per Dr. Pleitez. Report given to [facility] ambulance staff. Patient transferred with no valuables and no medications. Remains vent dependent. No respiratory distress. Kept clean and dry. Wound photos taken per protocol.
[2019-08-28] MEDS ORDERED: Dakin's 0.125% Soln (Quarter Strength) 16oz TOPIC SCH (21:00)
--- NOTE | 2019-08-28 21:58 | General Progress Note ---
Assessment/Plan Status: stable, not improved Assessment/Plan: Assessment - acute on chronic anemia - chronic resp failure / trach - encephalopathy - contractures / decubitus - poor prognosis / not candidate for GI w/u Recommendations - transfuse PRN - IV Iron replacement - PPI --> H2B - TF - Wound care - supportive measures Subjective Allergies: Coded Allergies: No Known Allergies (Unverified , 12/13/16) Subjective Obtunded, non verbal tolerating TF Objective Last 24 Hour Vital Signs Date Time Temp Pulse Resp B/P (MAP) Pulse Ox O2 Delivery O2 Flow Rate FiO2 08/28/19 14:24 67 12 110/61 (77) 100 08/28/19 12:53 72 12 28 08/28/19 12:00 Mechanical Ventilator 08/28/19 12:00 98.5 76 14 92/58 (69) 100 08/28/19 12:00 28 08/28/19 11:40 77 08/28/19 11:29 77 12 28 08/28/19 09:10 88 12 28 08/28/19 09:00 88 98/58 08/28/19 08:00 28 08/28/19 08:00 99.0 88 11 98/58 (71) 99 08/28/19 08:00 Mechanical Ventilator 08/28/19 07:48 89 08/28/19 07:16 92 12 28 08/28/19 05:29 98.9 08/28/19 04:37 112 18 28 08/28/19 04:00 28 08/28/19 04:00 Mechanical Ventilator 08/28/19 04:00 99.7 114 16 112/60 (77) 100 08/28/19 03:39 109 08/28/19 03:05 111 19 28 08/28/19 00:34 81 20 28 08/28/19 00:00 98.8 76 14 115/65 (82) 100 08/28/19 00:00 Mechanical Ventilator 08/28/19 00:00 28 08/27/19 23:27 86 08/27/19 23:24 81 16 28 Intake and Output 08/27/19 08/28/19 19:00 07:00 Intake Total 617.416 ml 500 ml Output Total 1000 ml 1000 ml Balance -382.584 ml -500 ml Intake Free Water 60 ml 50 ml IV Total 367.416 ml Tube Feeding 90 ml 450 ml Other 100 ml Output Urine Total 1000 ml 1000 ml # Bowel Movements 1 Height (Feet): 5 Height (Inches): 8.00 Weight (Pounds): 162 Objective Debilitated WM, contracted NCAT (+) trach coarse Ronchi RR abd soft, GT (++) contracures Ted Rivero MD Aug 28, 2019 21:58
--- NOTE | 2019-08-28 23:45 | Progress Note ---
DATE: 08/28/2019 CARDIOLOGY PROGRESS NOTE SUBJECTIVE: The patient is chronically on ventilator, noncommunicative. OBJECTIVE: VITAL SIGNS: Blood pressure parameters 112/60, heart rate 76 to 114, respiratory rate 14 to 20, temperature max 99.7. LUNGS: Bilateral breath sounds. CARDIAC: Regular rhythm and rate. Normal S1, S2. ABDOMEN: Soft. EXTREMITIES: No edema. G-tube site intact. IMPRESSION: 1. Acute on chronic diastolic congestive heart failure, clinically compensated. 2. Ventilator-dependent respiratory failure. 3. Status post sepsis, shock, and healthcare-associated pneumonia. 4. Episodes of sinus tachycardia, do not reflect any hemodynamic instability at this time. 5. Severe protein-calorie malnutrition. PLAN: 1. Stable for [facility]. 2. No current need for diuretic therapy. 3. We will need close monitoring of respiratory parameters. 4. We need to hold beta agonist therapy if persisting episodes of tachycardia noted. Kyaw Gonzalez M.D. DR: SHANTELLE JOB#: [id number] CC:
--- NOTE | 2019-08-31 14:15 | NUR ---
*-* INSURANCE *-* UPDATED [facility]S HAVE BEEN FAXED NO DISCHARGE SUMMARY IN THE SYSTEM: [facility] ph# [phone] fax#[phone] reviews/clinicals & Chelsie Couch ph#[phone] fax# [phone] reviews/clinicals
== END 2019-08-28 14:34 | DRG 720 ==
LOC: EDUNIT# 14:03 → EDBD 14:03 → EMR 14:30 → EDBEDREQ 15:27 → 2W 16:45 → EDBEDREQ 17:27
PROC: 5A1955Z Respiratory Ventilation, Greater than 96 Consecutive Hours (ICD-10-PCS; principal; 2019-08-18)
DX: A41.9 Sepsis, unspecified organism (principal); G93.1 Anoxic brain damage, not elsewhere classified; L89.154 Pressure ulcer of sacral region, stage 4; R65.21 Severe sepsis with septic shock; R62.59 Other lack of expected normal physiological development in childhood; J96.10 Chronic respiratory failure, unspecified whether with hypoxia or hypercapnia; Z99.11 Dependence on respirator [ventilator] status; I69.998 Other sequelae following unspecified cerebrovascular disease; G40.909 Epilepsy, unspecified, not intractable, without status epilepticus; K21.9 Gastro-esophageal reflux disease without esophagitis; D64.9 Anemia, unspecified; Z93.0 Tracheostomy status; Z93.1 Gastrostomy status; I13.0 Hypertensive heart and chronic kidney disease with heart failure and stage 1 through stage 4 chronic kidney disease, or unspecified chronic kidney disease; N18.9 Chronic kidney disease, unspecified; I50.33 Acute on chronic diastolic (congestive) heart failure; N17.9 Acute kidney failure, unspecified; N39.0 Urinary tract infection, site not specified; J15.1 Pneumonia due to Pseudomonas; Y95 Nosocomial condition; R13.10 Dysphagia, unspecified; E78.5 Hyperlipidemia, unspecified; E87.1 Hypo-osmolality and hyponatremia; E86.0 Dehydration; R40.3 Persistent vegetative state; Z74.01 Bed confinement status; M86.171 Other acute osteomyelitis, right ankle and foot; N13.2 Hydronephrosis with renal and ureteral calculous obstruction; E43 Unspecified severe protein-calorie malnutrition; Z68.24 Body mass index [BMI] 24.0-24.9, adult; R31.9 Hematuria, unspecified; N31.9 Neuromuscular dysfunction of bladder, unspecified; N39.498 Other specified urinary incontinence; R53.2 Functional quadriplegia
CPT/HCPCS: 36415; 36600; 70450; 71045; 74176; 80048; 80053; 80202; 80299; 81003; 82270; 82550; 82553; 82803; 82962; 83540; 83550; 83605; 83690; 83735; 83880; 84484; 85007; 85025; 85610; 85651; 85730; 86140; 86710; 86850; 86900; 86901; 86920; 87040; 87070; 87081; 87086; 87181; 87205; 93005; 93306; 94002; 94003; 94664; 96365; 96368; 99291; J7030